=== PATIENT | female | born 1950 | race Caucasian/White ===

== ENCOUNTER 2020-06-28 07:21 | Outpatient (REF) | payer MEDICARE, SELFPAY ==
[2020-06-28 08:01] LABS: Basophils Percent Auto 0.9 % (0-2); Eosinophils Absolute Auto 0.2 X10*3/uL (0.0-0.4); Eosinophils Percent Auto 5.7 % (0-4); Hematocrit 38.9 % (37-47); Hemoglobin 12.9 g/dl (12.0-16.0); Imm Gran Abs Auto 0.01 X10*3/uL (0.00-0.03); Imm Gran Pct Auto 0.3 % (0.0-0.4); Lymphocytes Absolute Auto 1.7 X10*3/uL (1.2-4.9); Lymphocytes Percent Auto 50.1 % (20-40); MANUAL DIFF FLAG SCAN; Mean Corpuscular HGB Conc 33.2 g/dl (31.0-35.0); Mean Corpuscular Hemoglobin 31.3 pg (27.0-33.0); Mean Corpuscular Volume 94.4 fL (80-98); Mean Platelet Volume 9.8 fL (9.4-12.3); Monocytes Absolute Auto 0.8 X10*3/uL (0.1-1.2); Monocytes Percent Auto 25.1 % (2-11); Neutrophils Absolute Auto 0.6 X10*3/uL (2.0-8.3); Neutrophils Percent Auto 17.9 % (45-73); Platelet Count 283 X10*3/uL (160-400); Red Blood Count 4.12 X10*6/uL (4.20-5.50); Red Cell Distribution Width 14.1 % (11.0-16.0); SCAN SMEAR FLAG 1; White Blood Count 3.4 X10*3/uL (4.8-10.8)
[2020-06-28 08:26] LABS: Alanine Aminotransferase 32 U/L (0-31); Albumin Level 3.9 g/dL (3.5-5.0); Alkaline Phosphatase 64 U/L (39-117); Anion Gap 10 (12-20); Aspartate Amino Transferase 37 U/L (5-31); Bilirubin Total 0.4 mg/dL (0.0-1.0); Blood Urea Nitrogen 9 mg/dL (9-16); C Reactive Protein 0.86 mg/dL (< or = 0.50); Calcium 9.2 mg/dL (8.4-10.2); Carbon Dioxide 30 mmol/L (22-29); Chloride 102 mmol/L (96-108); Cholesterol 222 mg/dL; Estimated Glomerular Filt Rate > 60; Glucose Fasting 93 mg/dL (60-99); HDL Cholesterol 70 mg/dL; LDL Cholesterol Calculated 133 mg/dl; Potassium 4.4 mmol/l (3.3-5.1); Sodium 138 mmol/L (135-145); Total Protein 8.1 g/dL (6.5-8.0); Triglycerides 98 mg/dL
[2020-06-28 08:32] LABS: SLIDE REVIEW VERIFIED
[2020-06-28 08:46] LABS: Vitamin D 25-OH Total 41.9 ng/mL (>30)
[2020-06-28 08:56] LABS: Erythrocyte Sedimentation Rate 45 MM/HR (0-20)
== END 2020-06-28 07:22 | disposition home or self-care (01) ==
LOC: HO.LAB 07:21
PROVIDERS: PCP Internal Medicine; Referring Provider Internal Medicine; Visit Provider Student in an Organized Health Care Education/Training Program
DX: M13.80 Other specified arthritis, unspecified site (principal); D86.9 Sarcoidosis, unspecified; Z79.52 Long term (current) use of systemic steroids; M81.0 Age-related osteoporosis without current pathological fracture
CPT/HCPCS: 36415; 80053; 80061; 82306; 85025; 85652; 86140; 96372; J0897

== ENCOUNTER → 2020-07-04 07:50 | Outpatient (BNVA) | payer MEDICARE, SELFPAY | PROVIDERS: PCP Internal Medicine; Referring Provider Internal Medicine; Visit Provider Student in an Organized Health Care Education/Training Program | DX: M06.00 Rheumatoid arthritis without rheumatoid factor, unspecified site (principal); M70.61 Trochanteric bursitis, right hip; M70.62 Trochanteric bursitis, left hip; M81.0 Age-related osteoporosis without current pathological fracture; D86.0 Sarcoidosis of lung; D70.9 Neutropenia, unspecified; Z79.52 Long term (current) use of systemic steroids; Z79.899 Other long term (current) drug therapy | CPT/HCPCS: 20610; 99214 ==

== ENCOUNTER → 2020-07-31 10:20 | Outpatient (BNV) | payer MEDICARE, SELFPAY | PROVIDERS: PCP Internal Medicine; Visit Provider Internal Medicine Medical Oncology | DX: D72.819 Decreased white blood cell count, unspecified (principal); D47.2 Monoclonal gammopathy | CPT/HCPCS: 99213; 99214 ==

== ENCOUNTER 2020-09-27 07:16 | Outpatient (REF) | payer MEDICARE, SELFPAY ==
[2020-09-27 07:59] LABS: MANUAL DIFF FLAG NO
[2020-09-27 08:02] LABS: Basophils Percent Auto 0.8 % (0-2); Eosinophils Absolute Auto 0.1 X10*3/uL (0.0-0.4); Eosinophils Percent Auto 3.5 % (0-4); Hematocrit 39.2 % (37-47); Hemoglobin 12.9 g/dl (12.0-16.0); Imm Gran Abs Auto 0.01 X10*3/uL (0.00-0.03); Imm Gran Pct Auto 0.3 % (0.0-0.4); Lymphocytes Absolute Auto 1.3 X10*3/uL (1.2-4.9); Lymphocytes Percent Auto 35.3 % (20-40); Mean Corpuscular HGB Conc 32.9 g/dl (31.0-35.0); Mean Corpuscular Hemoglobin 30.9 pg (27.0-33.0); Mean Corpuscular Volume 93.8 fL (80-98); Mean Platelet Volume 10.1 fL (9.4-12.3); Monocytes Absolute Auto 0.7 X10*3/uL (0.1-1.2); Monocytes Percent Auto 18.3 % (2-11); Neutrophils Absolute Auto 1.6 X10*3/uL (2.0-8.3); Neutrophils Percent Auto 41.8 % (45-73); Platelet Count 284 X10*3/uL (160-400); Red Blood Count 4.18 X10*6/uL (4.20-5.50); White Blood Count 3.7 X10*3/uL (4.8-10.8)
[2020-09-27 08:31] LABS: Alanine Aminotransferase 24 U/L (0-31); Albumin Level 3.9 g/dL (3.5-5.0); Alkaline Phosphatase 70 U/L (39-117); Anion Gap 14 (12-20); Aspartate Amino Transferase 33 U/L (5-31); Bilirubin Total 0.4 mg/dL (0.0-1.0); Blood Urea Nitrogen 11 mg/dL (9-16); C Reactive Protein 1.03 mg/dL (< or = 0.50); Calcium 9.1 mg/dL (8.4-10.2); Carbon Dioxide 27 mmol/L (22-29); Chloride 99 mmol/L (96-108); Cholesterol 236 mg/dL; Estimated Glomerular Filt Rate > 60; Glucose Random 97 mg/dL (60-115); HDL Cholesterol 74 mg/dL; LDL Cholesterol Calculated 145 mg/dl; Potassium 4.2 mmol/l (3.3-5.1); Sodium 136 mmol/L (135-145); Total Protein 8.3 g/dL (6.5-8.0); Triglycerides 87 mg/dL
[2020-09-27 09:17] LABS: Erythrocyte Sedimentation Rate 64 MM/HR (0-20)
== END 2020-09-27 07:17 | disposition home or self-care (01) ==
LOC: HO.LAB 07:16
PROVIDERS: PCP Internal Medicine; Visit Provider Student in an Organized Health Care Education/Training Program
DX: M06.00 Rheumatoid arthritis without rheumatoid factor, unspecified site (principal); I10 Essential (primary) hypertension
CPT/HCPCS: 36415; 80053; 80061; 85025; 85652; 86140

== ENCOUNTER → 2020-10-05 08:09 | Outpatient (BNVA) | payer MEDICARE, SELFPAY | PROVIDERS: PCP Internal Medicine; Visit Provider Student in an Organized Health Care Education/Training Program | DX: M06.00 Rheumatoid arthritis without rheumatoid factor, unspecified site (principal); D86.9 Sarcoidosis, unspecified; D70.9 Neutropenia, unspecified; M81.0 Age-related osteoporosis without current pathological fracture; Z79.52 Long term (current) use of systemic steroids; Z79.899 Other long term (current) drug therapy | CPT/HCPCS: Q3014 ==

== ENCOUNTER 2020-10-10 08:00 | Outpatient (REF) | payer MEDICARE, SELFPAY ==
--- NOTE | 2020-10-10 08:04 | MM_ITS ---
EXAMINATION: BONE DENSITOMETRY CLINICAL INDICATION: Age-related osteoporosis without current pathological fracture. COMPARISON: Previous BD dated 08/26/2018 and baseline BD dated 03/21/2008. TECHNIQUE: Using a [employer] DXA System (software version: 13.1) manufactured by [employer], dual-energy x-ray absorptiometry was performed of the lumbar spine and left hip. The images are of good technical quality. Summary results are attached. FINDINGS: AP SPINE L1-L2 (excluding L3 and L4): The data of L1-L4 has been changed to exclude the L3 and L4 vertebral bodies, because degenerative sclerosis at these levels may cause overestimation of lumbar spine density. Current: BMD 1.258 g/cm2, Z-score 1.8, T-score 0.8, normal, 7.8% increase from previous, 5.2% decrease from baseline (<5% change is not significant). Prior: BMD 1.167 g/cm2. Baseline: BMD 1.327 g/cm2. LEFT FEMUR, NECK: Current: BMD 0.867 g/cm2, Z-score 0.0, T-score -1.2, osteopenia. Prior: BMD 0.817 g/cm2. Baseline: BMD 0.935 g/cm2. LEFT FEMUR, TOTAL: Current: BMD 0.895 g/cm2, Z-score 0.1, T-score -0.9, normal, 4.8% increase from previous, 11.1% decrease from baseline (<5% change is not significant). Prior: BMD 0.854 g/cm2. Baseline: BMD 1.007 g/cm2. IDENTIFIED RISK FACTORS: History of adult fracture. Rheumatoid arthritis. Height loss. Secondary osteoporosis (early menopause). Chronic glucocorticoids. HISTORY OF FRACTURE: Other. MEDICATIONS: Calcium supplement and/or multivitamin. Vitamin D. Prolia. MM/XR DEXA axial skeleton IMPRESSION: 1. DIAGNOSIS: Osteopenia based on the lowest T-score value of -1.2 in the femoral neck applying World Health Organization criteria. 2. 10-YEAR FRACTURE RISK PREDICTION, FRAX: Major osteoporotic fracture (clinical spine, forearm, hip or shoulder) 27.7%. Hip fracture 4.2%. 3. Treatment Recommendations: NOF guidelines recommend consideration for treatment in postmenopausal women and men age 50 and older presenting with the following: -A hip or vertebral (clinical or morphometric) fracture. -T-score less than or equal to -2.5 at the femoral neck or spine after appropriate evaluation to exclude secondary causes. -Low bone mass at the hip or spine and a 10-year fracture probability by FRAX of greater than or equal to 3% for hip fracture or greater than or equal to 20% for major osteoporotic fracture based on the [place] adapted WHO algorithm. 4. Other Recommendations: All treatment decisions require clinical judgment and consideration of individual patient factors, including patient preferences, comorbidities, previous drug use, risk factors not captured in the FRAX model (e.g. frailty, falls, vitamin D deficiency, increased bone turnover, interval significant decline in bone density) and possible under or overestimation of fracture risk by FRAX. Additional medical evaluation for secondary cause of low bone mineral density may be appropriate. FUTURE SCAN RECOMMENDATION: People with diagnosed cases of osteoporosis or at high risk for fracture should have regular bone mineral density tests. For patients eligible for Medicare, routine testing is allowed once every 2 years. The testing frequency can be increased to one year for patients who have rapidly progressing disease, those who are receiving or discontinuing medical therapy to restore bone mass, or have additional risk factors.
== END 2020-10-10 08:01 | disposition home or self-care (01) ==
LOC: HO.MAMMO 08:00
PROVIDERS: PCP Internal Medicine; Visit Provider Student in an Organized Health Care Education/Training Program
DX: M81.0 Age-related osteoporosis without current pathological fracture (principal); M70.62 Trochanteric bursitis, left hip; Z79.899 Other long term (current) drug therapy; Z87.891 Personal history of nicotine dependence; M70.61 Trochanteric bursitis, right hip
CPT/HCPCS: 20610; 77080; 99211

== ENCOUNTER 2020-11-07 10:06 | Outpatient (REF) | payer MEDICARE, SELFPAY ==
[2020-11-07 10:52] LABS: MANUAL DIFF FLAG NO
[2020-11-07 10:59] LABS: Basophils Percent Auto 0.8 % (0-2); Eosinophils Absolute Auto 0.1 X10*3/uL (0.0-0.4); Eosinophils Percent Auto 2.5 % (0-4); Hematocrit 39.6 % (37-47); Hemoglobin 13.3 g/dl (12.0-16.0); Imm Gran Abs Auto 0.01 X10*3/uL (0.00-0.03); Imm Gran Pct Auto 0.3 % (0.0-0.4); Lymphocytes Absolute Auto 1.1 X10*3/uL (1.2-4.9); Lymphocytes Percent Auto 32.2 % (20-40); Mean Corpuscular HGB Conc 33.6 g/dl (31.0-35.0); Mean Corpuscular Hemoglobin 31.2 pg (27.0-33.0); Monocytes Absolute Auto 0.5 X10*3/uL (0.1-1.2); Monocytes Percent Auto 14.4 % (2-11); Neutrophils Absolute Auto 1.8 X10*3/uL (2.0-8.3); Neutrophils Percent Auto 49.8 % (45-73); Platelet Count 237 X10*3/uL (160-400); Red Blood Count 4.26 X10*6/uL (4.20-5.50); Red Cell Distribution Width 14.3 % (11.0-16.0); White Blood Count 3.5 X10*3/uL (4.8-10.8)
[2020-11-07 11:04] LABS: Prothrombin Time 11.3 SEC (10.8-13.0)
[2020-11-07 11:32] LABS: Anion Gap 12 (12-20); Blood Urea Nitrogen 14 mg/dL (9-16); Calcium 9.1 mg/dL (8.4-10.2); Carbon Dioxide 28 mmol/L (22-29); Chloride 98 mmol/L (96-108); Estimated Glomerular Filt Rate > 60; Glucose Random 101 mg/dL (60-115); Potassium 3.8 mmol/L (3.3-5.1); Sodium 134 mmol/L (135-145)
== END 2020-11-07 10:07 | disposition home or self-care (01) ==
LOC: HO.WFDLDS 10:06
PROVIDERS: PCP Internal Medicine; Visit Provider Internal Medicine Cardiovascular Disease
DX: I73.9 Peripheral vascular disease, unspecified (principal); I65.23 Occlusion and stenosis of bilateral carotid arteries
CPT/HCPCS: 36415; 80048; 85025; 85610

== ENCOUNTER 2021-01-01 07:28 | Outpatient (REF) | payer MEDICARE, SELFPAY ==
[2021-01-01 08:11] LABS: Basophils Percent Auto 1.6 % (0-2); Eosinophils Absolute Auto 0.2 X10*3/uL (0.0-0.4); Eosinophils Percent Auto 5.9 % (0-4); Hematocrit 37.3 % (37-47); Hemoglobin 12.2 g/dl (12.0-16.0); Imm Gran Abs Auto 0.01 X10*3/uL (0.00-0.03); Imm Gran Pct Auto 0.4 % (0.0-0.4); Lymphocytes Absolute Auto 1.3 X10*3/uL (1.2-4.9); Lymphocytes Percent Auto 48.8 % (20-40); MANUAL DIFF FLAG SCAN; Mean Corpuscular HGB Conc 32.7 g/dl (31.0-35.0); Mean Corpuscular Hemoglobin 30.5 pg (27.0-33.0); Mean Corpuscular Volume 93.3 fL (80-98); Mean Platelet Volume 9.9 fL (9.4-12.3); Monocytes Absolute Auto 0.6 X10*3/uL (0.1-1.2); Monocytes Percent Auto 22.7 % (2-11); Neutrophils Absolute Auto 0.5 X10*3/uL (2.0-8.3); Neutrophils Percent Auto 20.6 % (45-73); Platelet Count 280 X10*3/uL (160-400); Red Cell Distribution Width 14.6 % (11.0-16.0); SCAN SMEAR FLAG 1; White Blood Count 2.6 X10*3/uL (4.8-10.8)
[2021-01-01 08:55] LABS: Alanine Aminotransferase 21 U/L (0-31); Albumin Level 3.7 g/dL (3.5-5.0); Alkaline Phosphatase 71 U/L (39-117); Anion Gap 12 (12-20); Aspartate Amino Transferase 34 U/L (5-31); Bilirubin Total 0.4 mg/dL (0.0-1.0); Blood Urea Nitrogen 13 mg/dL (9-16); C Reactive Protein 0.53 mg/dL (< or = 0.50); Calcium 8.9 mg/dL (8.4-10.2); Carbon Dioxide 24 mmol/L (22-29); Chloride 105 mmol/L (96-108); Estimated Glomerular Filt Rate > 60; Glucose Random 90 mg/dL (60-115); Potassium 4.1 mmol/L (3.3-5.1); Sodium 137 mmol/L (135-145); Total Protein 7.7 g/dL (6.5-8.0)
[2021-01-01 09:20] LABS: Erythrocyte Sedimentation Rate 45 MM/HR (0-20)
[2021-01-01 09:28] LABS: SLIDE REVIEW VERIFIED
== END 2021-01-01 07:29 | disposition home or self-care (01) ==
LOC: HO.LAB 07:28
PROVIDERS: PCP Internal Medicine; Visit Provider Student in an Organized Health Care Education/Training Program
DX: M81.0 Age-related osteoporosis without current pathological fracture (principal); M06.00 Rheumatoid arthritis without rheumatoid factor, unspecified site
CPT/HCPCS: 36415; 80053; 85025; 85652; 86140; 96402; J0897

== ENCOUNTER 2021-01-15 07:30 | Outpatient (REF) | payer MEDICARE, SELFPAY ==
--- NOTE | ~2021-01-15 | XR_ITS ---
EXAMINATION: 1. RADIOGRAPHS RIGHT HIP 2. RADIOGRAPHS LEFT HIP CLINICAL INFORMATION: TROCHANTERIC BURSITIS COMPARISON: Left hip x-rays April 18, 2019 TECHNIQUE: 2 views of each hip were obtained FINDINGS: Right hip: Visualized portion of the proximal right femur demonstrate no fracture. Right femoral head is well-seated within the acetabulum. There is mild narrowing of the right femoral acetabular joint.. Partially visualized stent of the right lower extremity. Left hip: Visualized portion of the proximal left femur demonstrate no fracture. Left femoral head is well-seated within the acetabulum. Left femoral acetabular joint space is well-maintained. Partially visualized vascular stents of the left lower extremity. XR/XR hip RT min 2V IMPRESSION: 1. Mild degenerative changes of the right hip 2. Unremarkable radiographs of the left hip.
--- NOTE | ~2021-01-15 | XR_ITS ---
EXAMINATION: 1. RADIOGRAPHS RIGHT HIP 2. RADIOGRAPHS LEFT HIP CLINICAL INFORMATION: TROCHANTERIC BURSITIS COMPARISON: Left hip x-rays April 18, 2019 TECHNIQUE: 2 views of each hip were obtained FINDINGS: Right hip: Visualized portion of the proximal right femur demonstrate no fracture. Right femoral head is well-seated within the acetabulum. There is mild narrowing of the right femoral acetabular joint.. Partially visualized stent of the right lower extremity. Left hip: Visualized portion of the proximal left femur demonstrate no fracture. Left femoral head is well-seated within the acetabulum. Left femoral acetabular joint space is well-maintained. Partially visualized vascular stents of the left lower extremity. XR/XR hip LT min 2V IMPRESSION: 1. Mild degenerative changes of the right hip 2. Unremarkable radiographs of the left hip.
[2021-01-15 09:08] LABS: Alanine Aminotransferase 36 U/L (0-31); Albumin Level 3.9 g/dL (3.5-5.0); Alkaline Phosphatase 71 U/L (39-117); Anion Gap 11 (12-20); Aspartate Amino Transferase 45 U/L (5-31); Bilirubin Total 0.4 mg/dL (0.0-1.0); Blood Urea Nitrogen 10 mg/dL (9-16); Calcium 9.3 mg/dL (8.4-10.2); Carbon Dioxide 30 mmol/L (22-29); Chloride 102 mmol/L (96-108); Cholesterol 216 mg/dL; Estimated Glomerular Filt Rate > 60; Glucose Fasting 89 mg/dL (60-99); HDL Cholesterol 66 mg/dL; LDL Cholesterol Calculated 128 mg/dl; Potassium 4.3 mmol/L (3.3-5.1); Sodium 139 mmol/L (135-145); Triglycerides 110 mg/dL
== END 2021-01-15 07:31 | disposition home or self-care (01) ==
LOC: HO.LAB 07:30
PROVIDERS: PCP Internal Medicine; Visit Provider Internal Medicine
DX: M70.62 Trochanteric bursitis, left hip (principal); M70.61 Trochanteric bursitis, right hip; I10 Essential (primary) hypertension; E78.5 Hyperlipidemia, unspecified; M06.00 Rheumatoid arthritis without rheumatoid factor, unspecified site; D86.9 Sarcoidosis, unspecified; M81.0 Age-related osteoporosis without current pathological fracture; D70.9 Neutropenia, unspecified; Z79.899 Other long term (current) drug therapy; Z87.891 Personal history of nicotine dependence; Z79.52 Long term (current) use of systemic steroids
CPT/HCPCS: 20610; 36415; 73502; 80053; 80061; 99212

== ENCOUNTER 2021-04-02 11:25 | Outpatient (REF) | payer MEDICARE, SELFPAY ==
[2021-04-02 13:27] LABS: MANUAL DIFF FLAG NO
[2021-04-02 13:29] LABS: Basophils Percent Auto 0.8 % (0-2); Eosinophils Absolute Auto 0.1 X10*3/uL (0.0-0.4); Eosinophils Percent Auto 2.1 % (0-4); Hemoglobin 13.6 g/dl (12.0-16.0); Imm Gran Abs Auto 0.01 X10*3/uL (0.00-0.03); Imm Gran Pct Auto 0.3 % (0.0-0.4); Lymphocytes Absolute Auto 1.1 X10*3/uL (1.2-4.9); Lymphocytes Percent Auto 28.6 % (20-40); Mean Corpuscular HGB Conc 33.2 g/dl (31.0-35.0); Mean Corpuscular Hemoglobin 30.4 pg (27.0-33.0); Mean Corpuscular Volume 91.7 fL (80-98); Mean Platelet Volume 10.3 fL (9.4-12.3); Monocytes Absolute Auto 0.6 X10*3/uL (0.1-1.2); Monocytes Percent Auto 15.6 % (2-11); Neutrophils Percent Auto 52.6 % (45-73); Platelet Count 270 X10*3/uL (160-400); Red Blood Count 4.47 X10*6/uL (4.20-5.50); Red Cell Distribution Width 14.4 % (11.0-16.0); White Blood Count 3.9 X10*3/uL (4.8-10.8)
[2021-04-02 14:03] LABS: Alanine Aminotransferase 27 U/L (0-31); Alkaline Phosphatase 63 U/L (39-117); Anion Gap 14 (12-20); Aspartate Amino Transferase 37 U/L (5-31); Bilirubin Total 0.5 mg/dL (0.0-1.0); Blood Urea Nitrogen 16 mg/dL (9-16); Calcium 9.8 mg/dL (8.4-10.2); Carbon Dioxide 25 mmol/L (22-29); Chloride 101 mmol/L (96-108); Estimated Glomerular Filt Rate > 60; Glucose Random 99 mg/dL (60-115); Potassium 4.3 mmol/L (3.3-5.1); Sodium 136 mmol/L (135-145); Total Protein 8.7 g/dL (6.5-8.0)
[2021-04-02 14:21] LABS: Erythrocyte Sedimentation Rate 44 MM/HR (0-20)
== END 2021-04-02 11:26 | disposition home or self-care (01) ==
LOC: HO.WFDLDS 11:25
PROVIDERS: Visit Provider Student in an Organized Health Care Education/Training Program
DX: M06.00 Rheumatoid arthritis without rheumatoid factor, unspecified site (principal)
CPT/HCPCS: 36415; 80053; 85025; 85652; 86140

== ENCOUNTER → 2021-04-18 07:54 | Outpatient (BNVA) | payer MEDICARE, SELFPAY | PROVIDERS: PCP Internal Medicine; Visit Provider Student in an Organized Health Care Education/Training Program | DX: M70.61 Trochanteric bursitis, right hip (principal); M70.62 Trochanteric bursitis, left hip; M06.00 Rheumatoid arthritis without rheumatoid factor, unspecified site; D86.9 Sarcoidosis, unspecified; M81.0 Age-related osteoporosis without current pathological fracture; D70.9 Neutropenia, unspecified; Z79.52 Long term (current) use of systemic steroids; Z79.899 Other long term (current) drug therapy | CPT/HCPCS: 20610; 99212 ==

== ENCOUNTER 2021-04-23 07:27 | Outpatient (REF) | payer MEDICARE, SELFPAY ==
--- NOTE | ~2021-04-23 | CT_ITS ---
EXAMINATION: CT CHEST WITHOUT CONTRAST CLINICAL INFORMATION: Pulmonary nodules. COMPARISON: CT chest 05/16/2020. TECHNIQUE: Multidetector volumetric CT imaging of the chest was done. Axial MIP volume rendering provided. Sagittal and coronal reformatted images were obtained. This CT examination was performed using dose optimization techniques as appropriate, variously including the following: *Automated exposure control *Adjustment of mA and/or kV according to patient size (this includes techniques or standardized protocols for targeted exams where dose is matched to indication/reason for exam; i.e. extremities or head) *Use of iterative reconstruction technique DLP: 175 mGy-cm. FINDINGS: WORKING SECOND HAND: Unremarkable. LUNGS: There is diffuse centrilobular emphysema. There is a 4 mm ground-glass nodule right upper lobe adjacent to major fissure axial image 135/6, a 5 mm ground-glass nodule right upper lobe axial image 172/6, a 2 mm nodule right upper lobe adjacent to major fissure and more medial axial image 191/6, a 2 mm nodule left upper lobe axial image 228/6. No additional nodules seen. There is scarring or atelectasis in the lingula. MEDIASTINUM: The thyroid lobes are symmetrical and normal. Central trachea and the bronchi are widely patent. Heart size and the great vessels are normal caliber. The ascending aorta measures 4.0 x 3.7 cm. There are no abnormal-sized mediastinal or hilar lymph nodes. There are coronary artery calcifications present. No pericardial effusion seen. PLEURA: There is no pleural effusion. No pleural mass or thickening. AXILLA: Unremarkable. UPPER ABDOMEN: Visualized liver, spleen and pancreas are unremarkable. OSSEOUS STRUCTURES: There is mild ventral spondylosis dorsal spine. No lytic or sclerotic process seen. CT/CT chest wo con IMPRESSION: Centrilobular emphysema with multiple pulmonary nodules essentially stable. No change in the atelectatic changes in the lingula.
== END 2021-04-23 07:28 | disposition home or self-care (01) ==
LOC: HO.CT 07:27
PROVIDERS: PCP Internal Medicine; Visit Provider Hospitalist
DX: R91.8 Other nonspecific abnormal finding of lung field (principal)
CPT/HCPCS: 71250

== ENCOUNTER 2021-05-01 08:37 | Outpatient (REF) | payer MEDICARE, SELFPAY ==
--- NOTE | ~2021-05-01 | MM_ITS ---
EXAMINATION: MM SCREENING DIGITAL BREAST TOMOSYNTHESIS, BILATERAL CLINICAL INFORMATION: Screening. Asymptomatic. The lifetime risk of breast cancer based on the Tyrer-Cuzick Model is 3.4%. COMPARISON: Mammography: April 26, 2020 and studies dating back to October 03, 2014 TECHNIQUE: Digital breast tomosynthesis is performed in both the craniocaudal and mediolateral oblique views along with computer-aided detection (CAD). Synthesized 2D images are generated from the tomosynthesis. FINDINGS: There are scattered areas of fibroglandular density (ACR BI-RADS breast composition Category b). There are no significant masses, abnormal calcifications, or other abnormalities. MM/MM tomosynthesis screening BI IMPRESSION: There are no significant changes from prior study. ASSESSMENT: BI-RADS 1: Negative RECOMMENDATION: Routine annual mammography screening. This patient's information was entered into a reminder system with a target due date for their next mammogram.
== END 2021-05-01 08:38 | disposition home or self-care (01) ==
LOC: HO.MAMMO 08:37
PROVIDERS: PCP Internal Medicine; Visit Provider Internal Medicine
DX: Z12.31 Encounter for screening mammogram for malignant neoplasm of breast (principal)
CPT/HCPCS: 77063; 77067

== ENCOUNTER → 2021-05-23 08:48 | Outpatient (BNVA) | payer MEDICARE, SELFPAY | PROVIDERS: Visit Provider Orthopaedic Surgery | DX: M70.70 Other bursitis of hip, unspecified hip (principal); M25.551 Pain in right hip; M25.552 Pain in left hip; M06.00 Rheumatoid arthritis without rheumatoid factor, unspecified site; D86.9 Sarcoidosis, unspecified; Z79.899 Other long term (current) drug therapy; Z79.52 Long term (current) use of systemic steroids | CPT/HCPCS: 99202 ==

== ENCOUNTER → 2021-06-14 08:54 | Outpatient (BNVA) | payer MEDICARE, SELFPAY | PROVIDERS: PCP Internal Medicine; Visit Provider Hospitalist | DX: D86.9 Sarcoidosis, unspecified (principal); J43.2 Centrilobular emphysema; M06.00 Rheumatoid arthritis without rheumatoid factor, unspecified site; Z79.899 Other long term (current) drug therapy; Z79.52 Long term (current) use of systemic steroids | CPT/HCPCS: 99212 ==

== ENCOUNTER 2021-07-09 12:17 | Outpatient (REF) | payer MEDICARE, SELFPAY ==
[2021-07-09 13:55] LABS: MANUAL DIFF FLAG NO
[2021-07-09 13:58] LABS: Basophils Percent Auto 0.8 % (0-2); Eosinophils Absolute Auto 0.1 X10*3/uL (0.0-0.4); Eosinophils Percent Auto 3.3 % (0-4); Hematocrit 38.9 % (37-47); Imm Gran Abs Auto 0.01 X10*3/uL (0.00-0.03); Imm Gran Pct Auto 0.3 % (0.0-0.4); Lymphocytes Absolute Auto 1.6 X10*3/uL (1.2-4.9); Mean Corpuscular HGB Conc 33.4 g/dl (31.0-35.0); Mean Corpuscular Hemoglobin 31.1 pg (27.0-33.0); Mean Corpuscular Volume 93.1 fL (80-98); Mean Platelet Volume 10.4 fL (9.4-12.3); Monocytes Absolute Auto 0.7 X10*3/uL (0.1-1.2); Monocytes Percent Auto 18.6 % (2-11); Neutrophils Absolute Auto 1.2 X10*3/uL (2.0-8.3); Platelet Count 278 X10*3/uL (160-400); Red Blood Count 4.18 X10*6/uL (4.20-5.50); Red Cell Distribution Width 14.8 % (11.0-16.0); White Blood Count 3.7 X10*3/uL (4.8-10.8)
[2021-07-09 14:28] LABS: Alanine Aminotransferase 23 U/L (0-31); Albumin Level 3.9 g/dL (3.5-5.0); Alkaline Phosphatase 60 U/L (39-117); Anion Gap 13 (12-20); Aspartate Amino Transferase 37 U/L (5-31); Bilirubin Total 0.6 mg/dL (0.0-1.0); Blood Urea Nitrogen 11 mg/dL (9-16); C Reactive Protein 1.69 mg/dL (< or = 0.50); Calcium 9.4 mg/dL (8.4-10.2); Carbon Dioxide 25 mmol/L (22-29); Chloride 102 mmol/L (96-108); Estimated Glomerular Filt Rate > 60; Glucose Random 107 mg/dL (60-115); Sodium 136 mmol/L (135-145); Total Protein 8.1 g/dL (6.5-8.0)
[2021-07-09 15:03] LABS: Erythrocyte Sedimentation Rate 51 MM/HR (0-20)
== END 2021-07-09 12:18 | disposition home or self-care (01) ==
LOC: HO.WFDLDS 12:17
PROVIDERS: Visit Provider Nurse Practitioner Family
DX: M06.00 Rheumatoid arthritis without rheumatoid factor, unspecified site (principal)
CPT/HCPCS: 36415; 80053; 85025; 85652; 86140

== ENCOUNTER → 2021-07-12 07:58 | Outpatient (BNVA) | payer MEDICARE, SELFPAY | PROVIDERS: PCP Internal Medicine; Visit Provider Nurse Practitioner Family | DX: M06.00 Rheumatoid arthritis without rheumatoid factor, unspecified site (principal); D86.9 Sarcoidosis, unspecified; M81.0 Age-related osteoporosis without current pathological fracture; M70.61 Trochanteric bursitis, right hip; M76.20 Iliac crest spur, unspecified hip; Z79.52 Long term (current) use of systemic steroids; Z79.899 Other long term (current) drug therapy | CPT/HCPCS: 96372; 99212; J0897 ==

== ENCOUNTER → 2021-07-22 08:10 | Outpatient (BNVA) | payer MEDICARE, SELFPAY | PROVIDERS: PCP Internal Medicine; Visit Provider Orthopaedic Surgery | DX: M70.62 Trochanteric bursitis, left hip (principal); M70.61 Trochanteric bursitis, right hip; D86.9 Sarcoidosis, unspecified; Z79.899 Other long term (current) drug therapy; Z79.52 Long term (current) use of systemic steroids | CPT/HCPCS: 20610; 99212; J1100 ==

== ENCOUNTER 2021-09-04 10:29 | Outpatient (REF) | payer MEDICARE, SELFPAY ==
[2021-09-04 13:48] LABS: Basophils Percent Auto 1.8 % (0-2); Eosinophils Absolute Auto 0.1 X10*3/uL (0.0-0.4); Eosinophils Percent Auto 3.1 % (0-4); Hematocrit 42.3 % (37.0-47.0); Hemoglobin 14.1 g/dl (12.0-16.0); Lymphocytes Absolute Auto 0.7 X10*3/uL (1.2-4.9); Lymphocytes Percent Auto 41.7 % (20-40); MANUAL DIFF FLAG SCAN; Mean Corpuscular HGB Conc 33.3 g/dl (31.0-35.0); Mean Corpuscular Hemoglobin 30.9 pg (27.0-33.0); Mean Corpuscular Volume 92.8 fL (80.0-98.0); Mean Platelet Volume 10.8 fL (9.4-12.3); Monocytes Absolute Auto 0.5 X10*3/uL (0.1-1.2); Monocytes Percent Auto 30.7 % (2-11); Neutrophils Absolute Auto 0.4 x10*3/uL (2.0-8.3); Neutrophils Percent Auto 22.7 % (45-73); Platelet Count 225 X10*3/uL (160-400); Red Blood Count 4.56 X10*6/uL (4.20-5.50); Red Cell Distribution Width 14.2 % (11.0-16.0); SCAN SMEAR FLAG 1; White Blood Count 1.6 X10*3/uL (4.8-10.8)
[2021-09-04 14:07] LABS: Alanine Aminotransferase 29 U/L (0-31); Alkaline Phosphatase 53 U/L (39-117); Anion Gap 15 (12-20); Aspartate Amino Transferase 43 U/L (5-31); Bilirubin Total 0.4 mg/dL (0.0-1.0); Blood Urea Nitrogen 8 mg/dL (9-16); C Reactive Protein 0.08 mg/dL (< or = 0.50); Calcium 9.3 mg/dL (8.4-10.2); Carbon Dioxide 23 mmol/L (22-29); Chloride 102 mmol/L (96-108); Estimated Glomerular Filt Rate > 60; Glucose Random 94 mg/dL (60-115); Sodium 136 mmol/L (135-145); Total Protein 8.3 g/dL (6.5-8.0)
[2021-09-04 14:08] LABS: SLIDE REVIEW VERIFIED
[2021-09-04 14:27] LABS: Vitamin D 25-OH Total 35.9 ng/mL (>30)
[2021-09-04 15:16] LABS: Erythrocyte Sedimentation Rate 11 MM/HR (0-20)
[2021-09-05 08:54] LABS: HBc Num1 0.11 S/CO (0.00-0.79); HBsAGNum1 0.28 S/CO (0.00-0.99); Hepatitis B Core Antibody Nonreactive (Nonreactive); Hepatitis B Surface Antigen Negative (Negative); ~HepC Num1 0.13 S/CO (0.00-0.79); ~Hepatitis B Surface Antibody NONREACTIVE (Nonreactive); ~Hepatitis C Antibody Nonreactive (Nonreactive)
[2021-09-06 07:40] LABS: Hepatitis A Antibody IgM 0.14 Index (0-0.79); ~Hepatitis A Antibody IgM Nonreactive (Nonreactive)
[2021-09-06 20:36] LABS: TS Negative Control Passed; TS Panel A 0; TS Panel B 0; TS Positive Control Passed; TSpotTB Negative (Negative)
== END 2021-09-04 10:30 | disposition home or self-care (01) ==
LOC: HO.WFDLDS 10:29
PROVIDERS: Visit Provider Nurse Practitioner Family
DX: M06.00 Rheumatoid arthritis without rheumatoid factor, unspecified site (principal)
CPT/HCPCS: 36415; 80053; 82306; 85025; 85652; 86140; 86481; 86704; 86706; 86709; 86803; 87340

== ENCOUNTER 2021-09-12 08:07 | Outpatient (REF) | payer MEDICARE, SELFPAY ==
[2021-09-12 11:28] LABS: MANUAL DIFF FLAG NO
[2021-09-12 11:48] LABS: Basophils Percent Auto 1.3 % (0-2); Eosinophils Absolute Auto 0.1 X10*3/uL (0.0-0.4); Eosinophils Percent Auto 4.3 % (0-4); Hematocrit 41.5 % (37.0-47.0); Hemoglobin 13.8 g/dl (12.0-16.0); Lymphocytes Absolute Auto 1.3 X10*3/uL (1.2-4.9); Mean Corpuscular HGB Conc 33.3 g/dl (31.0-35.0); Mean Corpuscular Hemoglobin 30.9 pg (27.0-33.0); Mean Corpuscular Volume 92.8 fL (80.0-98.0); Mean Platelet Volume 10.8 fL (9.4-12.3); Monocytes Absolute Auto 0.4 X10*3/uL (0.1-1.2); Monocytes Percent Auto 12.3 % (2-11); Neutrophils Absolute Auto 1.1 x10*3/uL (2.0-8.3); Neutrophils Percent Auto 38.1 % (45-73); Platelet Count 222 X10*3/uL (160-400); Red Blood Count 4.47 X10*6/uL (4.20-5.50); Red Cell Distribution Width 13.9 % (11.0-16.0)
[2021-09-12 12:12] LABS: Alanine Aminotransferase 39 U/L (0-31); Alkaline Phosphatase 60 U/L (39-117); Anion Gap 11 (12-20); Aspartate Amino Transferase 45 U/L (5-31); Bilirubin Total 0.6 mg/dL (0.0-1.0); Blood Urea Nitrogen 13 mg/dL (9-16); C Reactive Protein 0.07 mg/dL (< or = 0.50); Calcium 9.6 mg/dL (8.4-10.2); Carbon Dioxide 25 mmol/L (22-29); Chloride 103 mmol/L (96-108); Estimated Glomerular Filt Rate > 60; Glucose Random 97 mg/dL (60-115); Potassium 4.1 mmol/L (3.3-5.1); Sodium 135 mmol/L (135-145); Total Protein 7.9 g/dL (6.5-8.0)
[2021-09-12 12:43] LABS: Erythrocyte Sedimentation Rate 9 MM/HR (0-20)
== END 2021-09-12 08:08 | disposition home or self-care (01) ==
LOC: HO.WFDLDS 08:07
PROVIDERS: Visit Provider Nurse Practitioner Family
DX: M06.00 Rheumatoid arthritis without rheumatoid factor, unspecified site (principal)
CPT/HCPCS: 36415; 80053; 85025; 85652; 86140

== ENCOUNTER 2021-09-24 11:39 | Outpatient (REF) | payer MEDICARE, SELFPAY ==
[2021-09-24 11:49] LABS: MANUAL DIFF FLAG NO
[2021-09-24 12:14] LABS: Basophils Percent Auto 1.3 % (0-2); Eosinophils Absolute Auto 0.1 X10*3/uL (0.0-0.4); Eosinophils Percent Auto 3.2 % (0-4); Hematocrit 44.1 % (37.0-47.0); Hemoglobin 14.6 g/dl (12.0-16.0); Lymphocytes Absolute Auto 1.2 X10*3/uL (1.2-4.9); Lymphocytes Percent Auto 38.5 % (20-40); Mean Corpuscular HGB Conc 33.1 g/dl (31.0-35.0); Mean Corpuscular Hemoglobin 31.2 pg (27.0-33.0); Mean Corpuscular Volume 94.2 fL (80.0-98.0); Mean Platelet Volume 10.3 fL (9.4-12.3); Monocytes Absolute Auto 0.5 X10*3/uL (0.1-1.2); Monocytes Percent Auto 16.1 % (2-11); Neutrophils Absolute Auto 1.3 x10*3/uL (2.0-8.3); Neutrophils Percent Auto 40.9 % (45-73); Platelet Count 240 X10*3/uL (160-400); Red Blood Count 4.68 X10*6/uL (4.20-5.50); Red Cell Distribution Width 14.3 % (11.0-16.0); White Blood Count 3.2 X10*3/uL (4.8-10.8)
[2021-09-24 12:43] LABS: Alanine Aminotransferase 59 U/L (0-31); Albumin Level 4.2 g/dL (3.5-5.0); Alkaline Phosphatase 50 U/L (39-117); Anion Gap 11 (12-20); Aspartate Amino Transferase 64 U/L (5-31); Bilirubin Total 0.6 mg/dL (0.0-1.0); Blood Urea Nitrogen 12 mg/dL (9-16); C Reactive Protein 0.04 mg/dL (< or = 0.50); Carbon Dioxide 27 mmol/L (22-29); Chloride 103 mmol/L (96-108); Estimated Glomerular Filt Rate > 60; Glucose Random 103 mg/dL (60-115); Potassium 4.3 mmol/L (3.3-5.1); Sodium 137 mmol/L (135-145); Total Protein 8.4 g/dL (6.5-8.0)
[2021-09-24 13:39] LABS: Erythrocyte Sedimentation Rate 8 MM/HR (0-20)
== END 2021-09-24 11:40 | disposition home or self-care (01) ==
LOC: HO.LAB 11:39
PROVIDERS: PCP Internal Medicine; Visit Provider Nurse Practitioner Family
DX: M06.00 Rheumatoid arthritis without rheumatoid factor, unspecified site (principal); D86.9 Sarcoidosis, unspecified; M81.0 Age-related osteoporosis without current pathological fracture; D70.9 Neutropenia, unspecified; M70.61 Trochanteric bursitis, right hip; M70.62 Trochanteric bursitis, left hip; Z79.52 Long term (current) use of systemic steroids; Z79.899 Other long term (current) drug therapy
CPT/HCPCS: 36415; 80053; 85025; 85652; 86140; 99212

== ENCOUNTER 2021-10-01 12:26 | Outpatient (REF) | payer MEDICARE, SELFPAY ==
[2021-10-01 14:02] LABS: Basophils Absolute Auto 0.1 X10*3/uL (0.0-0.2); Eosinophils Percent Auto 1.6 % (0-4); Hematocrit 41.8 % (37.0-47.0); Hemoglobin 14.1 g/dl (12.0-16.0); Lymphocytes Absolute Auto 1.4 X10*3/uL (1.2-4.9); Lymphocytes Percent Auto 55.1 % (20-40); MANUAL DIFF FLAG SCAN; Mean Corpuscular HGB Conc 33.7 g/dl (31.0-35.0); Mean Corpuscular Hemoglobin 31.3 pg (27.0-33.0); Mean Corpuscular Volume 92.9 fL (80.0-98.0); Mean Platelet Volume 10.8 fL (9.4-12.3); Monocytes Absolute Auto 0.3 X10*3/uL (0.1-1.2); Monocytes Percent Auto 12.6 % (2-11); Neutrophils Absolute Auto 0.7 x10*3/uL (2.0-8.3); Neutrophils Percent Auto 28.7 % (45-73); Platelet Count 231 X10*3/uL (160-400); Red Cell Distribution Width 13.9 % (11.0-16.0); SCAN SMEAR FLAG 1
[2021-10-01 14:03] LABS: White Blood Count 2.5 X10*3/uL (4.8-10.8)
[2021-10-01 14:35] LABS: SLIDE REVIEW VERIFIED
[2021-10-01 14:45] LABS: Alanine Aminotransferase 47 U/L (0-31); Albumin Level 3.9 g/dL (3.5-5.0); Alkaline Phosphatase 58 U/L (39-117); Anion Gap 12 (12-20); Aspartate Amino Transferase 51 U/L (5-31); Bilirubin Total 0.5 mg/dL (0.0-1.0); Blood Urea Nitrogen 15 mg/dL (9-16); C Reactive Protein 0.05 mg/dL (< or = 0.50); Calcium 10.1 mg/dL (8.4-10.2); Carbon Dioxide 27 mmol/L (22-29); Chloride 102 mmol/L (96-108); Cholesterol 276 mg/dL; Estimated Glomerular Filt Rate 59; Glucose Random 128 mg/dL (60-115); HDL Cholesterol 78 mg/dL; LDL Cholesterol Calculated 172 mg/dl; Potassium 4.4 mmol/L (3.3-5.1); Sodium 137 mmol/L (135-145); Triglycerides 131 mg/dL
[2021-10-01 14:56] LABS: Erythrocyte Sedimentation Rate 7 MM/HR (0-20)
[2021-10-01 15:07] LABS: Reflex LDLD? No
== END 2021-10-01 12:27 | disposition home or self-care (01) ==
LOC: HO.WFDLDS 12:26
PROVIDERS: Visit Provider Nurse Practitioner Family
DX: M06.00 Rheumatoid arthritis without rheumatoid factor, unspecified site (principal)
CPT/HCPCS: 36415; 80053; 80061; 85025; 85652; 86140

== ENCOUNTER 2021-10-10 12:37 | Outpatient (REF) | payer MEDICARE, SELFPAY ==
[2021-10-10 14:10] LABS: Basophils Percent Auto 0.7 % (0-2); Eosinophils Absolute Auto 0.1 X10*3/uL (0.0-0.4); Eosinophils Percent Auto 4.2 % (0-4); Hematocrit 41.6 % (37.0-47.0); Hemoglobin 13.8 g/dl (12.0-16.0); Imm Gran Abs Auto 0.01 X10*3/uL (0.00-0.03); Imm Gran Pct Auto 0.3 % (0.0-0.4); Lymphocytes Absolute Auto 1.5 X10*3/uL (1.2-4.9); MANUAL DIFF FLAG SCAN; Mean Corpuscular HGB Conc 33.2 g/dl (31.0-35.0); Mean Corpuscular Hemoglobin 30.7 pg (27.0-33.0); Mean Corpuscular Volume 92.7 fL (80.0-98.0); Mean Platelet Volume 10.6 fL (9.4-12.3); Monocytes Absolute Auto 0.4 X10*3/uL (0.1-1.2); Neutrophils Absolute Auto 0.8 x10*3/uL (2.0-8.3); Neutrophils Percent Auto 28.8 % (45-73); Platelet Count 230 X10*3/uL (160-400); Red Blood Count 4.49 X10*6/uL (4.20-5.50); Red Cell Distribution Width 13.9 % (11.0-16.0); SCAN SMEAR FLAG 1; White Blood Count 2.9 X10*3/uL (4.8-10.8)
[2021-10-10 14:14] LABS: Alanine Aminotransferase 45 U/L (0-31); Albumin Level 3.9 g/dL (3.5-5.0); Alkaline Phosphatase 51 U/L (39-117); Anion Gap 11 (12-20); Aspartate Amino Transferase 50 U/L (5-31); Bilirubin Total 0.6 mg/dL (0.0-1.0); Blood Urea Nitrogen 10 mg/dL (9-16); Calcium 9.4 mg/dL (8.4-10.2); Carbon Dioxide 29 mmol/L (22-29); Chloride 101 mmol/L (96-108); Estimated Glomerular Filt Rate > 60; Glucose Random 114 mg/dL (60-115); Potassium 3.9 mmol/L (3.3-5.1); Sodium 137 mmol/L (135-145)
[2021-10-10 14:46] LABS: SLIDE REVIEW VERIFIED
== END 2021-10-10 12:38 | disposition home or self-care (01) ==
LOC: HO.WFDLDS 12:37
PROVIDERS: Visit Provider Nurse Practitioner Family
DX: M06.00 Rheumatoid arthritis without rheumatoid factor, unspecified site (principal)
CPT/HCPCS: 36415; 80053; 85025

== ENCOUNTER → 2021-10-21 08:31 | Outpatient (BNVA) | payer MEDICARE, SELFPAY | PROVIDERS: PCP Internal Medicine; Visit Provider Orthopaedic Surgery | DX: M70.62 Trochanteric bursitis, left hip (principal); M70.61 Trochanteric bursitis, right hip | CPT/HCPCS: 20610; 99212; J1100 ==

== ENCOUNTER 2021-11-20 08:50 | Outpatient (REF) | payer MEDICARE, SELFPAY ==
[2021-11-20 10:33] LABS: Basophils Absolute Auto 0.1 X10*3/uL (0.0-0.2); Basophils Percent Auto 1.7 % (0-2); Eosinophils Absolute Auto 0.2 X10*3/uL (0.0-0.4); Eosinophils Percent Auto 5.2 % (0-4); Hematocrit 41.9 % (37.0-47.0); Hemoglobin 14.1 g/dl (12.0-16.0); Lymphocytes Absolute Auto 1.6 X10*3/uL (1.2-4.9); Lymphocytes Percent Auto 55.2 % (20-40); MANUAL DIFF FLAG SCAN; Mean Corpuscular HGB Conc 33.7 g/dl (31.0-35.0); Mean Corpuscular Hemoglobin 31.3 pg (27.0-33.0); Mean Corpuscular Volume 93.1 fL (80.0-98.0); Mean Platelet Volume 10.5 fL (9.4-12.3); Monocytes Absolute Auto 0.4 X10*3/uL (0.1-1.2); Monocytes Percent Auto 15.4 % (2-11); Neutrophils Absolute Auto 0.6 x10*3/uL (2.0-8.3); Neutrophils Percent Auto 22.5 % (45-73); Platelet Count 241 X10*3/uL (160-400); SCAN SMEAR FLAG 1; White Blood Count 2.9 X10*3/uL (4.8-10.8)
[2021-11-20 11:14] LABS: SLIDE REVIEW VERIFIED
== END 2021-11-20 08:51 | disposition home or self-care (01) ==
LOC: HO.WFDLDS 08:50
PROVIDERS: Visit Provider Nurse Practitioner Family
DX: M06.00 Rheumatoid arthritis without rheumatoid factor, unspecified site (principal)
CPT/HCPCS: 36415; 85025

== ENCOUNTER → 2021-12-23 08:31 | Outpatient (BNVA) | payer MEDICARE, SELFPAY | PROVIDERS: Visit Provider Orthopaedic Surgery | DX: M70.62 Trochanteric bursitis, left hip (principal); M70.61 Trochanteric bursitis, right hip; D47.2 Monoclonal gammopathy; D86.9 Sarcoidosis, unspecified; M06.00 Rheumatoid arthritis without rheumatoid factor, unspecified site; Z79.899 Other long term (current) drug therapy | CPT/HCPCS: 99212 ==

== ENCOUNTER 2022-01-11 07:33 | Outpatient (REF) | payer MEDICARE, SELFPAY ==
[2022-01-11 07:58] LABS: MANUAL DIFF FLAG NO
[2022-01-11 08:11] LABS: Basophils Percent Auto 0.8 % (0-2); Eosinophils Absolute Auto 0.1 X10*3/uL (0.0-0.4); Eosinophils Percent Auto 2.2 % (0-4); Hematocrit 40.1 % (37.0-47.0); Hemoglobin 13.7 g/dl (12.0-16.0); Imm Gran Abs Auto 0.01 X10*3/uL (0.00-0.03); Imm Gran Pct Auto 0.2 % (0.0-0.4); Lymphocytes Absolute Auto 0.9 X10*3/uL (1.2-4.9); Lymphocytes Percent Auto 19.2 % (20-40); Mean Corpuscular HGB Conc 34.2 g/dl (31.0-35.0); Mean Corpuscular Hemoglobin 31.6 pg (27.0-33.0); Mean Corpuscular Volume 92.4 fL (80.0-98.0); Mean Platelet Volume 10.8 fL (9.4-12.3); Monocytes Absolute Auto 0.7 X10*3/uL (0.1-1.2); Monocytes Percent Auto 13.7 % (2-11); Neutrophils Absolute Auto 3.1 x10*3/uL (2.0-8.3); Neutrophils Percent Auto 63.9 % (45-73); Platelet Count 213 X10*3/uL (160-400); Red Blood Count 4.34 X10*6/uL (4.20-5.50); White Blood Count 4.9 X10*3/uL (4.8-10.8)
[2022-01-11 08:35] LABS: Alanine Aminotransferase 65 U/L (0-31); Albumin Level 3.9 g/dL (3.5-5.0); Alkaline Phosphatase 60 U/L (39-117); Anion Gap 13 (12-20); Aspartate Amino Transferase 64 U/L (5-31); Bilirubin Total 0.5 mg/dL (0.0-1.0); Blood Urea Nitrogen 12 mg/dL (9-16); C Reactive Protein 0.09 mg/dL (< or = 0.50); Calcium 9.4 mg/dL (8.4-10.2); Carbon Dioxide 24 mmol/L (22-29); Chloride 103 mmol/L (96-108); Estimated Glomerular Filt Rate > 60; Glucose Random 103 mg/dL (60-115); Potassium 4.1 mmol/L (3.3-5.1); Sodium 136 mmol/L (135-145); Total Protein 7.6 g/dL (6.5-8.0)
[2022-01-11 08:55] LABS: Erythrocyte Sedimentation Rate 9 MM/HR (0-20)
== END 2022-01-11 07:34 | disposition home or self-care (01) ==
LOC: HO.LAB 07:33
PROVIDERS: PCP Internal Medicine; Visit Provider Nurse Practitioner Family
DX: M06.00 Rheumatoid arthritis without rheumatoid factor, unspecified site (principal)
CPT/HCPCS: 36415; 80053; 85025; 85652; 86140

== ENCOUNTER → 2022-01-13 11:18 | Outpatient (BNVA) | payer MEDICARE, SELFPAY | PROVIDERS: PCP Internal Medicine; Visit Provider Nurse Practitioner Family | DX: M06.00 Rheumatoid arthritis without rheumatoid factor, unspecified site (principal); M81.0 Age-related osteoporosis without current pathological fracture; M70.61 Trochanteric bursitis, right hip; M70.62 Trochanteric bursitis, left hip; D86.0 Sarcoidosis of lung; D70.9 Neutropenia, unspecified; Z79.52 Long term (current) use of systemic steroids; Z79.899 Other long term (current) drug therapy | CPT/HCPCS: 96372; 99212; J0897 ==

== ENCOUNTER 2022-02-10 11:00 | Outpatient (REF) | payer MEDICARE, SELFPAY ==
[2022-02-10 12:06] LABS: Basophils Percent Auto 1.2 % (0-2); Eosinophils Absolute Auto 0.1 X10*3/uL (0.0-0.4); Eosinophils Percent Auto 4.1 % (0-4); Hematocrit 42.4 % (37.0-47.0); Hemoglobin 14.2 g/dl (12.0-16.0); Imm Gran Abs Auto 0.01 X10*3/uL (0.00-0.03); Imm Gran Pct Auto 0.4 % (0.0-0.4); Lymphocytes Absolute Auto 0.8 X10*3/uL (1.2-4.9); Lymphocytes Percent Auto 33.9 % (20-40); MANUAL DIFF FLAG SCAN; Mean Corpuscular HGB Conc 33.5 g/dl (31.0-35.0); Mean Corpuscular Hemoglobin 31.1 pg (27.0-33.0); Mean Platelet Volume 10.4 fL (9.4-12.3); Monocytes Absolute Auto 0.5 X10*3/uL (0.1-1.2); Monocytes Percent Auto 18.8 % (2-11); Neutrophils Percent Auto 41.6 % (45-73); Platelet Count 233 X10*3/uL (160-400); Red Blood Count 4.56 X10*6/uL (4.20-5.50); Red Cell Distribution Width 14.4 % (11.0-16.0); SCAN SMEAR FLAG 1
[2022-02-10 12:10] LABS: White Blood Count 2.5 X10*3/uL (4.8-10.8)
[2022-02-10 12:24] LABS: Alanine Aminotransferase 79 U/L (0-31); Albumin Level 4.1 g/dL (3.5-5.0); Alkaline Phosphatase 53 U/L (39-117); Anion Gap 11 (12-20); Aspartate Amino Transferase 65 U/L (5-31); Bilirubin Total 0.6 mg/dL (0.0-1.0); Blood Urea Nitrogen 13 mg/dL (9-16); C Reactive Protein 0.05 mg/dL (< or = 0.50); Calcium 9.9 mg/dL (8.4-10.2); Carbon Dioxide 26 mmol/L (22-29); Chloride 102 mmol/L (96-108); Estimated Glomerular Filt Rate > 60; Glucose Random 101 mg/dL (60-115); Potassium 4.2 mmol/L (3.3-5.1); Sodium 135 mmol/L (135-145); Total Protein 8.1 g/dL (6.5-8.0)
[2022-02-10 12:25] LABS: SLIDE REVIEW VERIFIED
[2022-02-10 12:50] LABS: Erythrocyte Sedimentation Rate 8 MM/HR (0-20)
== END 2022-02-10 11:01 | disposition home or self-care (01) ==
LOC: HO.LAB 11:00
PROVIDERS: PCP Internal Medicine; Visit Provider Nurse Practitioner Family
DX: M06.00 Rheumatoid arthritis without rheumatoid factor, unspecified site (principal)
CPT/HCPCS: 36415; 80053; 85025; 85652; 86140

== ENCOUNTER 2022-03-13 15:15 | Outpatient (REF) | payer MEDICARE, SELFPAY ==
[2022-03-13 15:39] LABS: Basophils Percent Auto 1.2 % (0-2); Eosinophils Absolute Auto 0.1 X10*3/uL (0.0-0.4); Eosinophils Percent Auto 3.7 % (0-4); Hematocrit 43.2 % (37.0-47.0); Hemoglobin 14.5 g/dl (12.0-16.0); Imm Gran Abs Auto 0.01 X10*3/uL (0.00-0.03); Imm Gran Pct Auto 0.3 % (0.0-0.4); Lymphocytes Absolute Auto 1.8 X10*3/uL (1.2-4.9); Lymphocytes Percent Auto 54.4 % (20-40); MANUAL DIFF FLAG SCAN; Mean Corpuscular HGB Conc 33.6 g/dl (31.0-35.0); Mean Corpuscular Volume 92.5 fL (80.0-98.0); Mean Platelet Volume 10.6 fL (9.4-12.3); Monocytes Absolute Auto 0.9 X10*3/uL (0.1-1.2); Monocytes Percent Auto 26.6 % (2-11); Neutrophils Absolute Auto 0.5 x10*3/uL (2.0-8.3); Neutrophils Percent Auto 13.8 % (45-73); Platelet Count 212 X10*3/uL (160-400); Red Blood Count 4.67 X10*6/uL (4.20-5.50); Red Cell Distribution Width 13.2 % (11.0-16.0); SCAN SMEAR FLAG 1; White Blood Count 3.3 X10*3/uL (4.8-10.8)
[2022-03-13 16:03] LABS: Alanine Aminotransferase 23 U/L (0-31); Albumin Level 4.1 g/dL (3.5-5.0); Alkaline Phosphatase 61 U/L (39-117); Anion Gap 10 (12-20); Aspartate Amino Transferase 39 U/L (5-31); Bilirubin Total 0.4 mg/dL (0.0-1.0); Blood Urea Nitrogen 17 mg/dL (9-16); C Reactive Protein 0.04 mg/dL (< or = 0.50); Calcium 9.6 mg/dL (8.4-10.2); Carbon Dioxide 30 mmol/L (22-29); Chloride 101 mmol/L (96-108); Estimated Glomerular Filt Rate 52; Glucose Random 93 mg/dL (60-115); Potassium 4.4 mmol/L (3.3-5.1); Sodium 137 mmol/L (135-145); Total Protein 8.1 g/dL (6.5-8.0)
[2022-03-13 16:07] LABS: SLIDE REVIEW VERIFIED
[2022-03-13 16:31] LABS: Erythrocyte Sedimentation Rate 9 MM/HR (0-20)
== END 2022-03-13 15:16 | disposition home or self-care (01) ==
LOC: HO.LAB 15:15
PROVIDERS: PCP Internal Medicine; Visit Provider Nurse Practitioner Family
DX: M06.00 Rheumatoid arthritis without rheumatoid factor, unspecified site (principal)
CPT/HCPCS: 36415; 80053; 85025; 85652; 86140

== ENCOUNTER → 2022-03-17 08:04 | Outpatient (BNVA) | payer MEDICARE, SELFPAY | PROVIDERS: PCP Internal Medicine; Visit Provider Nurse Practitioner Family | DX: M06.09 Rheumatoid arthritis without rheumatoid factor, multiple sites (principal); M81.0 Age-related osteoporosis without current pathological fracture; D70.9 Neutropenia, unspecified; D86.9 Sarcoidosis, unspecified; M70.61 Trochanteric bursitis, right hip; M70.62 Trochanteric bursitis, left hip; Z79.52 Long term (current) use of systemic steroids; Z79.899 Other long term (current) drug therapy | CPT/HCPCS: 99212 ==

== ENCOUNTER 2022-04-07 07:35 | Outpatient (REF) | payer MEDICARE, SELFPAY ==
[2022-04-07 11:27] LABS: Eosinophils Absolute Auto 0.2 X10*3/uL (0.0-0.4); Eosinophils Percent Auto 3.9 % (0-4); Imm Gran Abs Auto 0.01 X10*3/uL (0.00-0.03); Imm Gran Pct Auto 0.2 % (0.0-0.4); Lymphocytes Absolute Auto 1.5 X10*3/uL (1.2-4.9); Lymphocytes Percent Auto 37.6 % (20-40); MANUAL DIFF FLAG SCAN; Mean Corpuscular HGB Conc 33.3 g/dl (31.0-35.0); Mean Corpuscular Hemoglobin 30.9 pg (27.0-33.0); Mean Corpuscular Volume 92.6 fL (80.0-98.0); Monocytes Absolute Auto 0.9 X10*3/uL (0.1-1.2); Monocytes Percent Auto 22.4 % (2-11); Neutrophils Absolute Auto 1.4 x10*3/uL (2.0-8.3); Neutrophils Percent Auto 34.9 % (45-73); Platelet Count 208 X10*3/uL (160-400); Red Blood Count 4.21 X10*6/uL (4.20-5.50); SCAN SMEAR FLAG 1; White Blood Count 4.1 X10*3/uL (4.8-10.8)
[2022-04-07 11:35] LABS: Alanine Aminotransferase 21 U/L (0-31); Albumin Level 3.8 g/dL (3.5-5.0); Alkaline Phosphatase 65 U/L (39-117); Anion Gap 10 (12-20); Aspartate Amino Transferase 33 U/L (5-31); Bilirubin Total 0.3 mg/dL (0.0-1.0); Blood Urea Nitrogen 12 mg/dL (9-16); C Reactive Protein 2.06 mg/dL (< or = 0.50); Calcium 8.9 mg/dL (8.4-10.2); Carbon Dioxide 27 mmol/L (22-29); Chloride 102 mmol/L (96-108); Estimated Glomerular Filt Rate > 60; Glucose Random 66 mg/dL (60-115); Potassium 4.1 mmol/L (3.3-5.1); Sodium 135 mmol/L (135-145); Total Protein 7.6 g/dL (6.5-8.0)
[2022-04-07 11:50] LABS: SLIDE REVIEW VERIFIED
[2022-04-07 12:09] LABS: Erythrocyte Sedimentation Rate 23 MM/HR (0-20)
== END 2022-04-07 07:36 | disposition home or self-care (01) ==
LOC: HO.WFDLDS 07:35
PROVIDERS: Visit Provider Nurse Practitioner Family
DX: M06.00 Rheumatoid arthritis without rheumatoid factor, unspecified site (principal)
CPT/HCPCS: 36415; 80053; 85025; 85652; 86140

== ENCOUNTER 2022-04-21 07:52 | Outpatient (REF) | payer MEDICARE, SELFPAY ==
[2022-04-21 11:22] LABS: MANUAL DIFF FLAG NO
[2022-04-21 11:35] LABS: Basophils Percent Auto 0.9 % (0-2); Eosinophils Absolute Auto 0.1 X10*3/uL (0.0-0.4); Hematocrit 40.3 % (37.0-47.0); Hemoglobin 13.3 g/dl (12.0-16.0); Imm Gran Abs Auto 0.02 X10*3/uL (0.00-0.03); Imm Gran Pct Auto 0.5 % (0.0-0.4); Lymphocytes Absolute Auto 1.6 X10*3/uL (1.2-4.9); Lymphocytes Percent Auto 36.4 % (20-40); Mean Corpuscular Hemoglobin 30.3 pg (27.0-33.0); Mean Corpuscular Volume 91.8 fL (80.0-98.0); Mean Platelet Volume 10.2 fL (9.4-12.3); Monocytes Absolute Auto 0.8 X10*3/uL (0.1-1.2); Monocytes Percent Auto 17.4 % (2-11); Neutrophils Absolute Auto 1.8 x10*3/uL (2.0-8.3); Neutrophils Percent Auto 41.8 % (45-73); Platelet Count 297 X10*3/uL (160-400); Red Blood Count 4.39 X10*6/uL (4.20-5.50); Red Cell Distribution Width 12.6 % (11.0-16.0); White Blood Count 4.3 X10*3/uL (4.8-10.8)
[2022-04-21 12:12] LABS: Erythrocyte Sedimentation Rate 38 MM/HR (0-20)
[2022-04-21 12:13] LABS: Alanine Aminotransferase 21 U/L (0-31); Albumin Level 3.7 g/dL (3.5-5.0); Alkaline Phosphatase 74 U/L (39-117); Anion Gap 13 (12-20); Aspartate Amino Transferase 29 U/L (5-31); Bilirubin Total 0.3 mg/dL (0.0-1.0); Blood Urea Nitrogen 12 mg/dL (9-16); C Reactive Protein 2.74 mg/dL (< or = 0.50); Calcium 9.1 mg/dL (8.4-10.2); Carbon Dioxide 27 mmol/L (22-29); Chloride 100 mmol/L (96-108); Estimated Glomerular Filt Rate > 60; Glucose Random 78 mg/dL (60-115); Potassium 4.3 mmol/L (3.3-5.1); Sodium 136 mmol/L (135-145); Total Protein 7.7 g/dL (6.5-8.0)
== END 2022-04-21 07:53 | disposition home or self-care (01) ==
LOC: HO.WFDLDS 07:52
PROVIDERS: Visit Provider Nurse Practitioner Family
DX: M06.00 Rheumatoid arthritis without rheumatoid factor, unspecified site (principal); M25.551 Pain in right hip
CPT/HCPCS: 36415; 80053; 85025; 85652; 86140

== ENCOUNTER 2022-05-02 08:55 | Outpatient (REF) | payer MEDICARE, SELFPAY ==
--- NOTE | ~2022-05-02 | MM_ITS ---
EXAMINATION: MM SCREENING DIGITAL BREAST TOMOSYNTHESIS, BILATERAL CLINICAL INFORMATION: Screening. Asymptomatic. The lifetime risk of breast cancer based on the Tyrer-Cuzick Model is 3%. COMPARISON: Mammography: 05/01/2021, 04/26/2020, 12/04/2018 TECHNIQUE: Digital breast tomosynthesis is performed in both the craniocaudal and mediolateral oblique views along with computer-aided detection (CAD). Synthesized 2D images are generated from the tomosynthesis. FINDINGS: There are scattered areas of fibroglandular density (ACR BI-RADS breast composition Category b). There are no significant masses, abnormal calcifications, or other abnormalities. Parenchymal pattern is similar to prior studies. There is no developing density or architectural abnormality. The axilla and skin contours are unremarkable. No significant changes. MM/MM tomosynthesis screening BI IMPRESSION: No mammographic evidence of malignancy. ASSESSMENT: BI-RADS 1: Negative RECOMMENDATION: Routine annual mammography screening. This patient's information was entered into a reminder system with a target due date for their next mammogram.
== END 2022-05-02 08:56 | disposition home or self-care (01) ==
LOC: HO.MAMMO 08:55
PROVIDERS: PCP Internal Medicine; Visit Provider Internal Medicine
DX: Z12.31 Encounter for screening mammogram for malignant neoplasm of breast (principal)
CPT/HCPCS: 77063; 77067

== ENCOUNTER 2022-06-05 12:29 | Outpatient (REF) | payer MEDICARE, SELFPAY ==
[2022-06-05 14:34] LABS: Basophils Percent Auto 0.9 % (0-2); Eosinophils Absolute Auto 0.1 X10*3/uL (0.0-0.4); Eosinophils Percent Auto 3.1 % (0-4); Hematocrit 40.7 % (37.0-47.0); Hemoglobin 13.5 g/dl (12.0-16.0); Imm Gran Abs Auto 0.01 X10*3/uL (0.00-0.03); Imm Gran Pct Auto 0.3 % (0.0-0.4); Lymphocytes Absolute Auto 1.8 X10*3/uL (1.2-4.9); Lymphocytes Percent Auto 55.1 % (20-40); MANUAL DIFF FLAG SCAN; Mean Corpuscular HGB Conc 33.2 g/dl (31.0-35.0); Mean Corpuscular Hemoglobin 29.3 pg (27.0-33.0); Mean Corpuscular Volume 88.5 fL (80.0-98.0); Monocytes Absolute Auto 0.5 X10*3/uL (0.1-1.2); Monocytes Percent Auto 15.2 % (2-11); Neutrophils Absolute Auto 0.8 x10*3/uL (2.0-8.3); Neutrophils Percent Auto 25.4 % (45-73); Platelet Count 293 X10*3/uL (160-400); Red Cell Distribution Width 12.8 % (11.0-16.0); SCAN SMEAR FLAG 1; White Blood Count 3.2 X10*3/uL (4.8-10.8)
[2022-06-05 14:48] LABS: Alanine Aminotransferase 20 U/L (0-31); Aspartate Amino Transferase 36 U/L (5-31); Estimated Glomerular Filt Rate > 60
[2022-06-05 15:13] LABS: SLIDE REVIEW VERIFIED
[2022-06-05 15:16] LABS: Erythrocyte Sedimentation Rate 51 MM/HR (0-20)
== END 2022-06-05 12:30 | disposition home or self-care (01) ==
LOC: HO.WFDLDS 12:29
PROVIDERS: Visit Provider Nurse Practitioner Family
DX: M06.00 Rheumatoid arthritis without rheumatoid factor, unspecified site (principal); Z79.899 Other long term (current) drug therapy
CPT/HCPCS: 36415; 82565; 84450; 84460; 85025; 85652; 86140

== ENCOUNTER → 2022-06-09 08:27 | Outpatient (BNVA) | payer MEDICARE, SELFPAY | PROVIDERS: PCP Internal Medicine; Visit Provider Nurse Practitioner Family | DX: M06.00 Rheumatoid arthritis without rheumatoid factor, unspecified site (principal); D70.9 Neutropenia, unspecified; D86.9 Sarcoidosis, unspecified; M81.0 Age-related osteoporosis without current pathological fracture; M70.61 Trochanteric bursitis, right hip; M70.62 Trochanteric bursitis, left hip; Z79.52 Long term (current) use of systemic steroids; Z79.899 Other long term (current) drug therapy | CPT/HCPCS: 99212 ==

== ENCOUNTER → 2022-06-17 08:46 | Outpatient (BNVA) | payer MEDICARE, SELFPAY | PROVIDERS: PCP Internal Medicine; Visit Provider Hospitalist | DX: J43.2 Centrilobular emphysema (principal); D86.9 Sarcoidosis, unspecified; M06.00 Rheumatoid arthritis without rheumatoid factor, unspecified site; Z79.52 Long term (current) use of systemic steroids | CPT/HCPCS: 99212 ==

== ENCOUNTER 2022-06-23 09:27 | Outpatient (REF) | payer MEDICARE, SELFPAY ==
[2022-06-23 11:13] LABS: MANUAL DIFF FLAG NO
[2022-06-23 11:34] LABS: Basophils Absolute Auto 0.1 X10*3/uL (0.0-0.2); Basophils Percent Auto 1.5 % (0-2); Eosinophils Absolute Auto 0.1 X10*3/uL (0.0-0.4); Eosinophils Percent Auto 2.7 % (0-4); Hematocrit 40.3 % (37.0-47.0); Hemoglobin 13.3 g/dl (12.0-16.0); Imm Gran Abs Auto 0.02 X10*3/uL (0.00-0.03); Imm Gran Pct Auto 0.5 % (0.0-0.4); Lymphocytes Absolute Auto 1.2 X10*3/uL (1.2-4.9); Lymphocytes Percent Auto 28.7 % (20-40); Mean Corpuscular Hemoglobin 29.5 pg (27.0-33.0); Mean Corpuscular Volume 89.4 fL (80.0-98.0); Mean Platelet Volume 10.4 fL (9.4-12.3); Monocytes Absolute Auto 0.7 X10*3/uL (0.1-1.2); Monocytes Percent Auto 18.5 % (2-11); Neutrophils Absolute Auto 1.9 x10*3/uL (2.0-8.3); Neutrophils Percent Auto 48.1 % (45-73); Platelet Count 279 X10*3/uL (160-400); Red Blood Count 4.51 X10*6/uL (4.20-5.50); Red Cell Distribution Width 13.2 % (11.0-16.0)
[2022-06-23 12:07] LABS: Erythrocyte Sedimentation Rate 50 MM/HR (0-20)
[2022-06-23 12:24] LABS: Alanine Aminotransferase 19 U/L (0-31); Alkaline Phosphatase 79 U/L (39-117); Anion Gap 15 (12-20); Aspartate Amino Transferase 33 U/L (5-31); Bilirubin Total 0.5 mg/dL (0.0-1.0); Blood Urea Nitrogen 11 mg/dL (9-16); C Reactive Protein 1.31 mg/dL (< or = 0.50); Calcium 9.2 mg/dL (8.4-10.2); Carbon Dioxide 25 mmol/L (22-29); Chloride 100 mmol/L (96-108); Estimated Glomerular Filt Rate > 60; Glucose Random 87 mg/dL (60-115); Potassium 4.2 mmol/L (3.3-5.1); Sodium 136 mmol/L (135-145); Total Protein 8.6 g/dL (6.5-8.0)
[2022-06-23 12:38] LABS: Vitamin D 25-OH Total 46.3 ng/mL (>30)
[2022-06-24 12:42] LABS: Immunoglobulin E 4 kU/L (<OR=114)
[2022-06-26 06:32] LABS: Angiotensin Converting Enzyme 9 U/L (9-67)
== END 2022-06-23 09:28 | disposition home or self-care (01) ==
LOC: HO.WFDLDS 09:27
PROVIDERS: Hospitalist; Visit Provider Nurse Practitioner Family
DX: M06.00 Rheumatoid arthritis without rheumatoid factor, unspecified site (principal); D86.9 Sarcoidosis, unspecified; Z79.899 Other long term (current) drug therapy
CPT/HCPCS: 36415; 80053; 82164; 82306; 82785; 85025; 85652; 86140

== ENCOUNTER 2022-07-16 08:10 | Outpatient (REF) | payer MEDICARE, SELFPAY ==
[2022-07-16 10:17] LABS: MANUAL DIFF FLAG NO
[2022-07-16 10:20] LABS: Basophils Absolute Auto 0.1 X10*3/uL (0.0-0.2); Basophils Percent Auto 1.6 % (0-2); Eosinophils Absolute Auto 0.1 X10*3/uL (0.0-0.4); Eosinophils Percent Auto 2.2 % (0-4); Hematocrit 39.7 % (37.0-47.0); Imm Gran Abs Auto 0.02 X10*3/uL (0.00-0.03); Imm Gran Pct Auto 0.4 % (0.0-0.4); Lymphocytes Absolute Auto 1.4 X10*3/uL (1.2-4.9); Lymphocytes Percent Auto 28.4 % (20-40); Mean Corpuscular HGB Conc 32.7 g/dl (31.0-35.0); Mean Corpuscular Hemoglobin 28.8 pg (27.0-33.0); Mean Platelet Volume 10.1 fL (9.4-12.3); Monocytes Absolute Auto 0.6 X10*3/uL (0.1-1.2); Monocytes Percent Auto 13.1 % (2-11); Neutrophils Absolute Auto 2.7 x10*3/uL (2.0-8.3); Neutrophils Percent Auto 54.3 % (45-73); Platelet Count 317 X10*3/uL (160-400); Red Blood Count 4.51 X10*6/uL (4.20-5.50); Red Cell Distribution Width 13.7 % (11.0-16.0); White Blood Count 4.9 X10*3/uL (4.8-10.8)
[2022-07-16 10:36] LABS: Alanine Aminotransferase 16 U/L (0-31); Aspartate Amino Transferase 34 U/L (5-31); C Reactive Protein 1.15 mg/dL (< or = 0.50); Estimated Glomerular Filt Rate > 60
[2022-07-16 11:00] LABS: Erythrocyte Sedimentation Rate 51 MM/HR (0-20)
== END 2022-07-16 08:11 | disposition home or self-care (01) ==
LOC: HO.10HDL 08:10
PROVIDERS: Visit Provider Nurse Practitioner Family
DX: M81.0 Age-related osteoporosis without current pathological fracture (principal); M06.00 Rheumatoid arthritis without rheumatoid factor, unspecified site; Z79.899 Other long term (current) drug therapy
CPT/HCPCS: 36415; 82565; 84450; 84460; 85025; 85652; 86140; 96372

== ENCOUNTER → 2022-08-08 09:11 | Outpatient (BNVA) | payer MEDICARE, SELFPAY | PROVIDERS: PCP Internal Medicine; Visit Provider Nurse Practitioner Family | DX: M06.00 Rheumatoid arthritis without rheumatoid factor, unspecified site (principal); D70.9 Neutropenia, unspecified; D86.9 Sarcoidosis, unspecified; M81.0 Age-related osteoporosis without current pathological fracture; M70.61 Trochanteric bursitis, right hip; M70.62 Trochanteric bursitis, left hip; Z79.52 Long term (current) use of systemic steroids | CPT/HCPCS: 99212 ==

== ENCOUNTER 2022-08-20 09:24 | Outpatient (REF) | payer MEDICARE, SELFPAY ==
[2022-08-20 12:10] LABS: Influenza A PCR NEGATIVE (Negative); Influenza B PCR NEGATIVE (Negative); Resp Syncy Virus RNA Qual PCR NEGATIVE (Negative); SARS COV2 PCR INHOUSE NEGATIVE (Negative)
== END 2022-08-20 09:25 | disposition home or self-care (01) ==
LOC: HO.LAB 09:24
PROVIDERS: Visit Provider Nurse Practitioner Family
DX: R09.89 Other specified symptoms and signs involving the circulatory and respiratory systems (principal); Z20.822 Contact with and (suspected) exposure to COVID-19
CPT/HCPCS: 0241U

== ENCOUNTER 2022-09-09 07:11 | Outpatient (REF) | payer MEDICARE, SELFPAY ==
[2022-09-09 13:45] LABS: Alanine Aminotransferase 16 U/L (0-31); Albumin Level 3.6 g/dL (3.5-5.0); Alkaline Phosphatase 73 U/L (39-117); Anion Gap 12 (12-20); Aspartate Amino Transferase 26 U/L (5-31); Bilirubin Total 0.3 mg/dL (0.0-1.0); Blood Urea Nitrogen 12 mg/dL (9-16); Carbon Dioxide 26 mmol/L (22-29); Chloride 103 mmol/L (96-108); Cholesterol 234 mg/dL; Estimated Glomerular Filt Rate > 60; Glucose Fasting 83 mg/dL (60-99); HDL Cholesterol 66 mg/dL; LDL Cholesterol Calculated 138 mg/dl; Potassium 4.4 mmol/L (3.3-5.1); Sodium 137 mmol/L (135-145); Total Protein 7.9 g/dL (6.5-8.0); Triglycerides 154 mg/dL
== END 2022-09-09 07:12 | disposition home or self-care (01) ==
LOC: HO.WFDLDS 07:11
PROVIDERS: PCP Internal Medicine; Visit Provider Nurse Practitioner Family
DX: Z00.00 Encounter for general adult medical examination without abnormal findings (principal)
CPT/HCPCS: 36415; 80053; 80061

== ENCOUNTER → 2022-10-23 13:54 | Outpatient (BNVA) | payer MEDICARE, SELFPAY | PROVIDERS: PCP Internal Medicine; Visit Provider Nurse Practitioner Family | DX: M06.042 Rheumatoid arthritis without rheumatoid factor, left hand (principal); M06.041 Rheumatoid arthritis without rheumatoid factor, right hand; M06.032 Rheumatoid arthritis without rheumatoid factor, left wrist; M06.031 Rheumatoid arthritis without rheumatoid factor, right wrist; M06.072 Rheumatoid arthritis without rheumatoid factor, left ankle and foot; M06.071 Rheumatoid arthritis without rheumatoid factor, right ankle and foot; M81.0 Age-related osteoporosis without current pathological fracture; D70.9 Neutropenia, unspecified; D86.9 Sarcoidosis, unspecified; Z79.52 Long term (current) use of systemic steroids | CPT/HCPCS: 99212 ==

== ENCOUNTER 2022-10-24 11:27 | Outpatient (REF) | payer MEDICARE, SELFPAY ==
[2022-10-24 12:50] LABS: C Reactive Protein 0.46 mg/dL (< or = 0.50)
[2022-10-24 13:09] LABS: Erythrocyte Sedimentation Rate 37 MM/HR (0-20)
== END 2022-10-24 11:28 | disposition home or self-care (01) ==
LOC: HO.LAB 11:27
PROVIDERS: PCP Internal Medicine; Visit Provider Nurse Practitioner Family
DX: M06.00 Rheumatoid arthritis without rheumatoid factor, unspecified site (principal)
CPT/HCPCS: 36415; 85652; 86140

== ENCOUNTER 2022-10-31 08:34 | Outpatient (REF) | payer MEDICARE, SELFPAY ==
--- NOTE | ~2022-10-31 | MM_ITS ---
EXAMINATION: BONE DENSITOMETRY CLINICAL INDICATION: Osteoporosis. COMPARISON: Previous BD dated 10/10/2020 and baseline BD dated 03/21/2008. TECHNIQUE: Using a [employer] DXA System (software version: 13.1) manufactured by [employer], dual-energy x-ray absorptiometry was performed of the lumbar spine and left hip. The images are of good technical quality. Summary results are attached. FINDINGS: AP SPINE L1-L4: Current: BMD 1.364 g/cm2, Z-score 2.5, T-score 1.5, normal, 0.6% increase from previous, 4.4% decrease from baseline (<5% change is not significant). Prior: BMD 1.356 g/cm2. Baseline: BMD 1.427 g/cm2. LEFT FEMUR, NECK: Current: BMD 0.881 g/cm2, Z-score 0.2, T-score -1.1, osteopenia. Prior: BMD 0.867 g/cm2. Baseline: BMD 0.935 g/cm2. LEFT FEMUR, TOTAL: Current: BMD 0.897 g/cm2, Z-score 0.1, T-score -0.9, normal, 0.2% increase from previous, 10.9% decrease from baseline (<5% change is not significant). Prior: BMD 0.895 g/cm2. Baseline: BMD 1.007 g/cm2. IDENTIFIED RISK FACTORS: Early menopause, glucocorticoids (chronic), osteoporosis, rheumatoid arthritis, secondary osteoporosis. HISTORY OF FRACTURE: None listed. MEDICATIONS: Calcium, vitamin D, Prolia. MM/XR DEXA axial skeleton IMPRESSION: 1. DIAGNOSIS: Osteopenia based on the lowest T-score value of -1.1 in the femoral neck applying World Health Organization criteria. 2. 10-YEAR FRACTURE RISK PREDICTION, FRAX: Not performed in this patient on estrogen or bone building treatments. 3. Treatment Recommendations: NOF guidelines recommend consideration for treatment in postmenopausal women and men age 50 and older presenting with the following: -A hip or vertebral (clinical or morphometric) fracture. -T-score less than or equal to -2.5 at the femoral neck or spine after appropriate evaluation to exclude secondary causes. -Low bone mass at the hip or spine and a 10-year fracture probability by FRAX of greater than or equal to 3% for hip fracture or greater than or equal to 20% for major osteoporotic fracture based on the [place] adapted WHO algorithm. 4. Other Recommendations: All treatment decisions require clinical judgment and consideration of individual patient factors, including patient preferences, comorbidities, previous drug use, risk factors not captured in the FRAX model (e.g. frailty, falls, vitamin D deficiency, increased bone turnover, interval significant decline in bone density) and possible under or overestimation of fracture risk by FRAX. Additional medical evaluation for secondary cause of low bone mineral density may be appropriate. FUTURE SCAN RECOMMENDATION: People with diagnosed cases of osteoporosis or at high risk for fracture should have regular bone mineral density tests. For patients eligible for Medicare, routine testing is allowed once every 2 years. The testing frequency can be increased to one year for patients who have rapidly progressing disease, those who are receiving or discontinuing medical therapy to restore bone mass, or have additional risk factors.
== END 2022-10-31 08:35 | disposition home or self-care (01) ==
LOC: HO.MAMMO 08:34
PROVIDERS: PCP Internal Medicine; Visit Provider Nurse Practitioner Family
DX: M81.0 Age-related osteoporosis without current pathological fracture (principal)
CPT/HCPCS: 77080

== ENCOUNTER 2023-01-12 11:12 | Outpatient (REF) | payer MEDICARE, SELFPAY ==
[2023-01-12 11:19] VITALS: BMI 30.5
[2023-01-12 11:21] VITALS: BP 132/82; PULSE 104; RESP 17; TEMP 35.6; O2SAT 97
[2023-01-12 13:09] VITALS: BP 140/78; PULSE 90; RESP 16; O2SAT 96
== END 2023-01-12 11:13 | disposition home or self-care (01) ==
LOC: HO.MS 11:12
PROVIDERS: PCP Internal Medicine; Visit Provider Ophthalmology
PROC: (CPT 67840; principal; 2023-01-12 13:00)
DX: H02.61 Xanthelasma of right upper eyelid (principal); H02.62 Xanthelasma of right lower eyelid; H02.64 Xanthelasma of left upper eyelid; H02.65 Xanthelasma of left lower eyelid
CPT/HCPCS: 67840 ×2; 88305; 88313; 88342

== ENCOUNTER 2023-01-15 11:43 | Outpatient (REF) | payer MEDICARE, SELFPAY ==
[2023-01-15 13:55] LABS: MANUAL DIFF FLAG NO
[2023-01-15 14:16] LABS: Basophils Absolute Auto 0.1 X10*3/uL (0.0-0.2); Basophils Percent Auto 1.3 % (0-2); Eosinophils Percent Auto 0.8 % (0-4); Hematocrit 41.7 % (37.0-47.0); Hemoglobin 13.7 g/dl (12.0-16.0); Imm Gran Abs Auto 0.01 X10*3/uL (0.00-0.03); Imm Gran Pct Auto 0.3 % (0.0-0.4); Lymphocytes Absolute Auto 1.3 X10*3/uL (1.2-4.9); Mean Corpuscular HGB Conc 32.9 g/dl (31.0-35.0); Mean Corpuscular Hemoglobin 29.4 pg (27.0-33.0); Mean Corpuscular Volume 89.5 fL (80.0-98.0); Mean Platelet Volume 10.1 fL (9.4-12.3); Monocytes Absolute Auto 0.4 X10*3/uL (0.1-1.2); Monocytes Percent Auto 10.7 % (2-11); Neutrophils Percent Auto 52.9 % (45-73); Platelet Count 289 X10*3/uL (160-400); Red Blood Count 4.66 X10*6/uL (4.20-5.50); Red Cell Distribution Width 13.4 % (11.0-16.0); White Blood Count 3.7 X10*3/uL (4.8-10.8)
[2023-01-15 14:34] LABS: C Reactive Protein 0.49 mg/dL (< or = 0.50)
[2023-01-15 14:57] LABS: Erythrocyte Sedimentation Rate 38 MM/HR (0-20)
[2023-01-15 15:52] LABS: Anion Gap 13 (12-20)
[2023-01-15 15:56] LABS: Alanine Aminotransferase 22 U/L (0-31); Albumin Level 4.2 g/dL (3.5-5.0); Alkaline Phosphatase 75 U/L (39-117); Aspartate Amino Transferase 38 U/L (5-31); Bilirubin Total 0.4 mg/dL (0.0-1.0); Blood Urea Nitrogen 12 mg/dL (9-16); Calcium 9.7 mg/dL (8.4-10.2); Carbon Dioxide 25 mmol/L (22-29); Chloride 102 mmol/L (96-108); Estimated Glomerular Filt Rate > 60; Glucose Random 110 mg/dL (60-115); Potassium 4.4 mmol/L (3.3-5.1); Sodium 136 mmol/L (135-145); Total Protein 8.6 g/dL (6.5-8.0)
== END 2023-01-15 11:44 | disposition home or self-care (01) ==
LOC: HO.WFDLDS 11:43
PROVIDERS: Visit Provider Nurse Practitioner Family
DX: M06.00 Rheumatoid arthritis without rheumatoid factor, unspecified site (principal); Z79.899 Other long term (current) drug therapy
CPT/HCPCS: 36415; 80053; 85025; 85652; 86140

== ENCOUNTER → 2023-01-20 07:27 | Outpatient (BNVA) | payer MEDICARE, SELFPAY | PROVIDERS: PCP Internal Medicine; Visit Provider Nurse Practitioner Family | DX: M06.00 Rheumatoid arthritis without rheumatoid factor, unspecified site (principal); M81.0 Age-related osteoporosis without current pathological fracture; D70.9 Neutropenia, unspecified; D86.9 Sarcoidosis, unspecified; Z79.52 Long term (current) use of systemic steroids | CPT/HCPCS: 96372; 99212 ==

== ENCOUNTER → 2023-05-04 08:15 | Outpatient (BNV) | payer MEDICARE, SELFPAY | PROVIDERS: PCP Internal Medicine; Visit Provider Radiology Diagnostic Radiology | DX: Z12.31 Encounter for screening mammogram for malignant neoplasm of breast (principal) | CPT/HCPCS: 77063; 77067 ==

== ENCOUNTER 2023-05-04 08:18 | Outpatient (REF) | payer MEDICARE, SELFPAY ==
--- NOTE | ~2023-05-04 | MM_ITS ---
EXAMINATION: MM SCREENING DIGITAL BREAST TOMOSYNTHESIS, BILATERAL CLINICAL INFORMATION: Screening. Asymptomatic. COMPARISON: Mammography: 05/02/2022, 05/01/2021, 04/26/2020, and dating back to 2012. TECHNIQUE: Digital breast tomosynthesis is performed in both the craniocaudal and mediolateral oblique views along with computer-aided detection (CAD). Synthesized 2D images are generated from the tomosynthesis. FINDINGS: There are scattered areas of fibroglandular density (ACR BI-RADS breast composition Category b). There are no suspicious masses, suspicious grouped calcifications, or areas of architectural distortion. The parenchymal pattern is stable from prior exams. There are benign vascular calcifications bilaterally. There are no skin changes. MM/MM tomosynthesis screening BI IMPRESSION: No mammographic evidence of malignancy. ASSESSMENT: BI-RADS BI-RADS 2 - Benign Findings RECOMMENDATION: Routine annual mammography screening. 1 year F/U This examination should not preclude the clinical evaluation of a suspicious palpable abnormality. This patient's information was entered into a reminder system with a target due date for their next mammogram.
== END 2023-05-04 08:19 | disposition home or self-care (01) ==
LOC: HO.MAMMO 08:18
PROVIDERS: PCP Internal Medicine; Visit Provider Internal Medicine
DX: Z12.31 Encounter for screening mammogram for malignant neoplasm of breast (principal)
CPT/HCPCS: 77063; 77067

== ENCOUNTER 2023-05-08 10:28 | Outpatient (REF) | payer MEDICARE, SELFPAY ==
--- NOTE | ~2023-05-08 | CT_ITS ---
EXAMINATION: CT CHEST WITHOUT CONTRAST CLINICAL INFORMATION: Sarcoidosis COMPARISON: Previous chest CT April 2021 TECHNIQUE: Multidetector volumetric CT imaging of the chest was done. Axial MIP volume rendering provided. Sagittal and coronal reformatted images were obtained. This CT examination was performed using dose optimization techniques as appropriate, variously including the following: *Automated exposure control *Adjustment of mA and/or kV according to patient size (this includes techniques or standardized protocols for targeted exams where dose is matched to indication/reason for exam; i.e. extremities or head) *Use of iterative reconstruction technique DLP: 181 mGy-cm FINDINGS: INTERNATIONAL ACCOUNT REPRESENTATIVE: LUNGS: There is evidence of mild paraseptal emphysema. There are areas of linear scarring or chronic subsegmental atelectasis seen throughout the lungs. There is a 6 x 10 mm heterogeneous or semisolid posterior segment right upper lobe nodule adjacent to the major fissure axial image 65 series 9 that is stable. There is a 6 mm groundglass attenuation posterior segment right upper lobe nodule axial image 76 series 9 that is stable. There are clustered posterior segment right upper lobe nodules largest measuring 3 mm axial image 57 series 9 that are new. There are clustered apical posterior segment left upper lobe nodules near the fissure largest measuring 3 x 4 mm axial image 89 series 9 that are new. There are clustered lingular nodules largest measuring 6 mm axial image 106 series 9 that are new. There are clustered central right lower lobe nodules, largest measuring 3 x 4 mm axial image 135 series 9 that are new. There are clustered left lower lobe nodules along the diaphragmatic pleural surface largest measuring 4 mm axial image 146 series 9. MEDIASTINUM: No enlarged hilar or mediastinal lymph nodes. Atherosclerotic disease. Stent in the left common carotid artery. Normal caliber thoracic aorta. Normal heart size. Three-vessel coronary artery calcification. Trace pericardial effusion or thickening that is stable. CORONARY ARTERY CALCIFICATION: Severe. PLEURA: There is no pleural effusion. No pleural mass or thickening. AXILLA: No lymphadenopathy. UPPER ABDOMEN: Peripheral capsular splenic calcification similar to previous exam. OSSEOUS STRUCTURES: Degenerative changes of the spine. CT/CT chest wo IV con IMPRESSION: Mild emphysema. Multiple areas of new clustered nodules, largest in the lingula. Tree-in-bud appearance/airways disease as well as changes from sarcoidosis should be considered. No mediastinal or hilar lymphadenopathy. Severe atherosclerotic disease. Fleischner guidelines were followed.
== END 2023-05-08 10:29 | disposition home or self-care (01) ==
LOC: HO.CT 10:28
PROVIDERS: PCP Internal Medicine; Visit Provider Hospitalist
DX: D86.9 Sarcoidosis, unspecified (principal)
CPT/HCPCS: 71250

== ENCOUNTER 2023-05-20 12:32 | Outpatient (REF) | payer MEDICARE, SELFPAY ==
[2023-05-20 14:33] LABS: MANUAL DIFF FLAG NO
[2023-05-20 14:36] LABS: Basophils Absolute Auto 0.1 X10*3/uL (0.0-0.2); Basophils Percent Auto 2.7 % (0-2); Eosinophils Percent Auto 1.2 % (0-4); Hematocrit 39.1 % (37.0-47.0); Hemoglobin 13.1 g/dl (12.0-16.0); Imm Gran Abs Auto 0.01 X10*3/uL (0.00-0.03); Imm Gran Pct Auto 0.4 % (0.0-0.4); Lymphocytes Percent Auto 40.6 % (20-40); Mean Corpuscular HGB Conc 33.5 g/dl (31.0-35.0); Mean Corpuscular Volume 89.5 fL (80.0-98.0); Mean Platelet Volume 10.5 fL (9.4-12.3); Monocytes Absolute Auto 0.4 X10*3/uL (0.1-1.2); Monocytes Percent Auto 15.2 % (2-11); Neutrophils Percent Auto 39.9 % (45-73); Platelet Count 262 X10*3/uL (160-400); Red Blood Count 4.37 X10*6/uL (4.20-5.50); Red Cell Distribution Width 13.4 % (11.0-16.0); White Blood Count 2.6 X10*3/uL (4.8-10.8)
[2023-05-20 15:07] LABS: Alanine Aminotransferase 20 U/L (0-31); Alkaline Phosphatase 81 U/L (39-117); Anion Gap 12 (12-20); Aspartate Amino Transferase 39 U/L (5-31); Bilirubin Total 0.2 mg/dL (0.0-1.0); Blood Urea Nitrogen 11 mg/dL (9-16); C Reactive Protein 0.42 mg/dL (< or = 0.50); Carbon Dioxide 26 mmol/L (22-29); Chloride 103 mmol/L (96-108); Estimated Glomerular Filt Rate > 60; Glucose Random 130 mg/dL (60-115); Sodium 137 mmol/L (135-145); Total Protein 8.4 g/dL (6.5-8.0)
[2023-05-20 15:21] LABS: Erythrocyte Sedimentation Rate 30 MM/HR (0-20)
== END 2023-05-20 12:33 | disposition home or self-care (01) ==
LOC: HO.WFDLDS 12:32
PROVIDERS: Visit Provider Nurse Practitioner Family
DX: M06.9 Rheumatoid arthritis, unspecified (principal)
CPT/HCPCS: 36415; 80053; 85025; 85652; 86140

== ENCOUNTER 2023-05-26 08:17 | Outpatient (AMB) | payer MEDICARE, SELFPAY ==
[2023-05-26 08:32] VITALS: BP 134/70; PULSE 85; O2SAT 95; BMI 30.1
--- NOTE | 2023-05-26 08:32 | A.OFFVIS_ITS ---
Intake Vital Signs 05/26/23 08:32 Height 5 ft 7 in Weight 192 lb BMI 30.1 BP 134/70 Blood Pressure Location Lt brachial Position Sitting Pulse 85 Pulse Source Pulse Oximeter Pulse Oximetry (%) 95 Oxygen Delivery Method Room Air Intake Visit Reasons: CT follow up Insurance Sales Assistant Required: No Allergies Mnadqis-FDI-QlI Reductase Inhibitor [TIZDRDI-KUY-UMU REDUCTASE INHIBITOR] Allergy (Severe, Verified 05/26/23 08:35) ANAPHYLACTIC HPI HPI Comments History of Present Illness Details Patient is a 72 y/o woman with a history of seronegative rheumatoid arthritis followed closely by Rheumatology in addition to history of sarcoidosis and pulmonary nodules. Overall she is doing very well on methotrexate 4 tablets a week and she was initially on 5 mg of prednisone. Since she last saw the competitive athlete the recommendation was to drop down the prednisone to 4 mg. Even though her sedimentation rate was still elevated at 40. She did have a recent CT scan demonstrating stable pulmonary nodules in addition to some mild degree of emphysema. The patient is aware of this. At this point having stable pulmonary nodules the patient does need to have yearly follow-up at this time. She did have her eyes checked in appears to be stable and her lesion her face that is likely from her sarcoidosis also seems to be decreasing in size. Overall she is doing very well she is staying active and the conditions are not impacting her quality of life. ? 06/17/2022 the patient is here for a pulmonary follow-up visit. She is struggling with her arthritis. She is working on different agents to try to control her seronegative rheumatoid arthritis. The patient also has underlying sarcoidosis. Her breathing has been stable. Although she is going to the allergy season and she needs to have a rescue inhaler available. The patient continues on a small dose of prednisone. She was supposed to undergo a CT scan of the chest to follow-up pulmonary nodules. But, the patient was too busy and forgets to go to her appointment. The patient stands with following nodules that can potentially grow. At this point will have her go blood work to assess her and phlegm a carlos levels and also sarcoid levels. If there is any concerning will go ahead and request a CT scan now. Otherwise patient would like to wait until next summer to further evaluate the pulmonary nodules. Will plan to follow-up with her after her CT scan in a year's time, unless her blood work 05/26/2023 the patient is here for a pulmonary follow-up visit. The yoel ent overall has been doing better. She has been on a better regimen for her arthritis. She is responding well to the Orencia. She continues also to be on 10 mg of prednisone. She is working slowly to decrease that. As far as the sarcoidosis the patient does have regular follow-up sore pulmonary nodules. Her last CT scan was just done couple weeks ago. Appears that she does have some slight new nodules but very minimal amount. The other nodules are stable. Therefore, based on the fact that she does have some new nodules will plan to follow-up with a CT scan in a year's time. She does have a rescue inhaler that she has not required. Overall the patient is doing well. I am hopeful that she can cut down the prednisone. 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 at home: Yes (Son) Do you presently have visiting nurse or other home services: No Alcohol intake: current Alcohol intake frequency: holidays/special occasions only Alcohol type: wine Patient Tobacco Use Status: Never used Tobacco Tobacco use type: Cigarette e-Cigarette/Vaping Use: Never Used Second Hand Smoke Exposure: No Substance Use Type: Marijuana service: No Current occupational status: employed and retired Cognitive needs: No Hearing needs: No Vision needs: Yes (reading glasses) Review of Systems Const Denies night sweats ENT Denies change in voice, Denies lip swelling, Denies mouth pain, Reports nasal congestion, Reports nasal discharge and Denies tongue swelling Card Denies chest pain Resp Reports cough GI Denies abdominal pain Musc Reports as per HPI, Reports myalgias, Reports arthralgias and Reports joint swelling Neuro Denies Neuro-related abnormal movements Psych Denies no additional complaints Ricardo/Lymph Denies easy bleeding and Denies lymphadenopathy Aller/Immun Denies lip swelling and Denies tongue swelling Physical Exam Vital Signs: Last Vital Signs Pulse 85 05/26/23 08:32 BP 134/70 05/26/23 08:32 Pulse Ox 95 05/26/23 08:32 Oxygen Delivery Method Room Air 05/26/23 08:32 BMI result Body Mass Index 30.1 Const General: alert Neck Neck: Yes normal visual inspection, Yes full ROM and Yes no lymphadenopathy Chest Chest palpation & inspection: normal inspection of the chest Resp Auscultation: diminished lung sounds Cardio Rate: regular rate Rhythm: regular rhythm Heart sounds: S1 normal heart sound present and S2 normal heart sound present GI Palpation (GI): Soft to palpation and nontender Auscultation: normal bowel sounds Skin General skin exam: rashes and/or lesions noted Immunizations pneumoc 20-little conj-dip cr(PF) Performing Provider: Collins Ruff MD Administered by: Marbella Arceo LPN on 05/26/23 09:05 Dose Route Admin Location Lot Number Expiration Date NDC Blind Aide 0.5 mL IM Left Deltoid [id number] 07/21/24 [id number] Total Immersion/Povio VIS Given Date VIS Provided VIS Publication Date 05/26/23 Single Vaccine 23 Eligibility Eligibility Date Funding Source Not [facility] Eligible 05/26/23 Private Results Reviewed Results Reviewed: [address] [address] [address] Scan Report Signed Patient: Tasha Nieto MR#: [id number] : 1950 Acct:[id number] Age/Sex: 72 / F ADM Date: 05/08/23 Loc: HO.CT Attending Dr: Collins Ruff MD Ordering Physician: Collins Ruff MD Date of Service: 05/08/23 Procedure(s): CT chest wo IV con Accession Number(s): [id number] cc: Collins Ruff MD~ EXAMINATION: CT CHEST WITHOUT CONTRAST CLINICAL INFORMATION: Sarcoidosis? COMPARISON: Previous chest CT April 2021 TECHNIQUE: Multidetector volumetric CT imaging of the chest was done. Axial MIP volume rendering provided. Sagittal and coronal reformatted images were obtained.? This CT examination was performed using dose optimization techniques as appropriate, variously including the following: *Automated exposure control *Adjustment of mA and/or kV according to patient size (this includes techniques or standardized protocols for targeted exams where dose is matched to indication/reason for exam; i.e. extremities or head) *Use of iterative reconstruction technique DLP: 181 mGy-cm FINDINGS: INFORMATION SYSTEMS SECURITY MANAGER: LUNGS: There is evidence of mild paraseptal emphysema. There are areas of linear scarring or chronic subsegmental atelectasis seen throughout the lungs. There is a 6 x 10 mm heterogeneous or semisolid posterior segment right upper lobe nodule adjacent to the major fissure axial image 65 series 9 that is stable. There is a 6 mm groundglass attenuation posterior segment right upper lobe nodule axial image 76 series 9 that is stable. There are clustered posterior segment right upper lobe nodules largest measuring 3 mm axial image 57 series 9 that are new. There are clustered apical posterior segment left upper lobe nodules near the fissure largest measuring 3 x 4 mm axial image 89 series 9 that are new. There are clustered lingular nodules largest measuring 6 mm axial image 106 series 9 that are new. There are clustered central right lower lobe nodules, largest measuring 3 x 4 mm axial image 135 series 9 that are new. There are clustered left lower lobe nodules along the diaphragmatic pleural surface largest measuring 4 mm axial image 146 series 9. MEDIASTINUM: No enlarged hilar or mediastinal lymph nodes. Atherosclerotic disease. Stent in the left common carotid artery. Normal caliber thoracic aorta. Normal heart size. Three-vessel coronary artery calcification. Trace pericardial effusion or thickening that is stable. CORONARY ARTERY CALCIFICATION: Severe. PLEURA: There is no pleural effusion. No pleural mass or thickening.? AXILLA: No lymphadenopathy.? UPPER ABDOMEN: Peripheral capsular splenic calcification similar to previous exam. OSSEOUS STRUCTURES: Degenerative changes of the spine. CT/CT chest wo IV con IMPRESSION: Mild emphysema. Multiple areas of new clustered nodules, largest in the lingula. Tree-in-bud appearance/airways disease as well as changes from sarcoidosis should be considered. No mediastinal or hilar lymphadenopathy. Severe atherosclerotic disease. ? Fleischner guidelines were followed. Dictated By: Elaine Rausch MD Signed By: <Electronically signed by Elaine Rausch MD in OV> 05/12/23 0825 DD/ 1052 TD/TT:? Autopsy Pathologist: LYNNE Assessment & Plan Assessment & Plan (1) Sarcoidosis: Code(s): D86.9 - Sarcoidosis, unspecified (2) Seronegative rheumatoid arthritis: Comment: Jordyn-03/2022-present Code(s): M06.00 - Rheumatoid arthritis without rheumatoid factor, unspecified site (3) long term care phlebotomist systemic steroid user: Code(s): Z79.52 - long term care phlebotomist (current) use of systemic steroids (4) Emphysema lung: Code(s): J43.9 - Emphysema, unspecified Qualifiers: Emphysema type: centrilobular Qualified Code(s): J43.2 - Centrilobular emphysema (5) Pulmonary nodules: Code(s): R91.8 - Other nonspecific abnormal finding of lung field Plan Short-acting beta agonist as needed low dose prednisone, should slowly decrease dose ideally CT scan of the chest in 1 yr Prevnar 20 follow-up in 1 year Orders: Orders Pneumococcal 20 Immunization Today Z23 - Encounter for immunization CT chest wo IV con 04/25/24 D86.9 - Sarcoidosis, unspecified, R91.8 - Other nonspecific abnormal finding of lung field Coding Level of Care Code Est Pt Level 4 (26003) Diagnoses Sarcoidosis D86.9 Seronegative rheumatoid arthritis M06.00 long term care phlebotomist systemic steroid user Z79.52 Emphysema lung J43.2 Emphysema type: centrilobular Pulmonary nodules R91.8 Time Spent (min) 18
== END 2023-05-26 09:07 | disposition home or self-care (01) ==
PROVIDERS: PCP Internal Medicine; Visit Provider Hospitalist
DX: D86.9 Sarcoidosis, unspecified (principal); M06.00 Rheumatoid arthritis without rheumatoid factor, unspecified site; Z79.52 Long term (current) use of systemic steroids; J43.2 Centrilobular emphysema; R91.8 Other nonspecific abnormal finding of lung field
CPT/HCPCS: 99214

== ENCOUNTER → 2023-05-26 08:17 | Outpatient (BNVA) | payer MEDICARE, SELFPAY | PROVIDERS: Visit Provider Hospitalist | DX: D86.9 Sarcoidosis, unspecified (principal); M06.00 Rheumatoid arthritis without rheumatoid factor, unspecified site; J43.2 Centrilobular emphysema; R91.8 Other nonspecific abnormal finding of lung field; Z79.52 Long term (current) use of systemic steroids; Z23 Encounter for immunization | CPT/HCPCS: 90471; 90677; 99212 ==

== ENCOUNTER 2023-06-02 15:21 | Outpatient (AMB) | payer MEDICARE, SELFPAY ==
--- NOTE | 2023-06-02 15:25 | MHC.OFFVIS ---
Intake Vital Signs 06/02/23 15:26 Height 5 ft 7 in Weight 192 lb 14.472 oz BMI 30.2 BP 130/74 Blood Pressure Location Rt brachial Position Sitting Pulse 96 Pulse Source Pulse Oximeter Temp 97.2 F Pulse Oximetry (%) 97 Intake Visit Reasons: RA Intake Note: Pt presents today for RA follow up. States she feels good on Orencia. Charcoal Unloader Required: No Accompanied by: Self / Same As Patient Allergies Limcwjm-NXX-HxL Reductase Inhibitor [QKQLFGI-TSS-LAF REDUCTASE INHIBITOR] Allergy (Severe, Verified 06/02/23 15:30) ANAPHYLACTIC Medication List - Last Reconciled 06/02/23 by Anoop Bello MD abatacept (Orencia ClickJect) 125 mg subcut QWEEK albuterol sulfate 90 mcg/actuation 2 inhalations inhalation Q6H PRN 30 days alirocumab (Praluent Pen) 150 mg subcut Q2W amlodipine 5 mg PO DAILY bupropion HCl (Wellbutrin XL) 150 mg PO QAM 90 days cholecalciferol (vitamin D3) 25 mcg PO DAILY clopidogrel (Plavix) 75 mg PO DAILY denosumab (Prolia) 60 mg subcut [id number] diclofenac sodium 1% 2 grams topical QID PRN lisinopril 40 mg PO DAILY prednisone 10 mg (2 x 5 mg) PO DAILY tramadol 50 mg PO Q6H PRN 30 days HPI HPI Comments History of Present Illness Details This is a 72-year-old female with seronegative RA on Orencia and prednisone 10 mg daily, sarcoidosis followed by palm, leukopenia, MGUS followed by Hematology presents for follow-up. Patient states that she is doing the best she has been in a long time. She has doing doing great on Orencia. Denies any significant joint pain or stiffness. Denies any cough or shortness of breath. Denies any new skin rashes. Received her flu vaccine yesterday. Received her Orencia today. REPLACED BY [facility] Medical History Pulmonary nodules Mild recurrent major depression Emphysema lung Hip bursitis Depression Essential hypertension Surgical History History of coronary angiogram Hx of left knee surgery H/O cataract removal with insertion of prosthetic lens H/O laminectomy Carpal tunnel syndrome on both sides Family History Mother Leukemia Father Diabetes Heart disease Brother Heart disease Other No family history of cancer Social History Household Members: Spouse Housing: House Are you a primary toddler caregiver to a significant other at home: Yes (Son) Do you presently have visiting nurse or other home services: No Alcohol intake: current Alcohol intake frequency: holidays/special occasions only Alcohol type: wine Patient Tobacco Use Status: Never used Tobacco Tobacco use type: Cigarette e-Cigarette/Vaping Use: Never Used Second Hand Smoke Exposure: No Substance Use Type: Marijuana service: No Current occupational status: employed and retired Cognitive needs: No Hearing needs: No Vision needs: Yes (reading glasses) Review of Systems Card Denies dyspnea Resp Denies cough and Denies dyspnea Musc Reports arthralgias and Reports joint swelling Skin/Breast Denies rash Physical Exam Vital Signs: Last Vital Signs Temp 97.2 F 06/02/23 15:26 Pulse 96 06/02/23 15:26 BP 130/74 06/02/23 15:26 Pulse Ox 97 06/02/23 15:26 BMI result Body Mass Index 30.2 Const General: cooperative, healthy appearing and comfortable Nutritional Appearance: overweight Orientation/consciousness: patient oriented x3 Limitations: no limitations HEENT Head: Yes normocephalic and Yes atraumatic Mouth: moist mucous membranes Resp Effort & Inspection: normal respiratory effort and able to speak in complete sentences Auscultation: clear to auscultation bilaterally Cardio Rate: regular rate Rhythm: regular rhythm Neuro General: patient oriented x3 Extrem Other: Swelling of right 4th finger. Otherwise no active synovitis Normal nailfold capillaroscopy Results Reviewed Results Reviewed: Laboratory Tests W C-Reactive Protein 0.49 Date of Service: 10/31/22 Procedure(s): XR DEXA axial skeleton Accession Number(s): [id number] EXAMINATION: BONE DENSITOMETRY CLINICAL INDICATION: Osteoporosis. COMPARISON: Previous BD dated 10/10/2020 and baseline BD dated 03/21/2008. TECHNIQUE: Using a [employer] DXA System (software version: 13.1) manufactured by [employer], dual-energy x-ray absorptiometry was performed of the lumbar spine and left hip. The images are of good technical quality. Summary results are attached. FINDINGS: AP SPINE L1-L4: Current: BMD 1.364 g/cm2, Z-score 2.5, T-score 1.5, normal, 0.6% increase from previous, 4.4% decrease from baseline (<5% change is not significant). Prior: BMD 1.356 g/cm2. Baseline: BMD 1.427 g/cm2. LEFT FEMUR, NECK: Current: BMD 0.881 g/cm2, Z-score 0.2, T-score -1.1, osteopenia. Prior: BMD 0.867 g/cm2. Baseline: BMD 0.935 g/cm2. LEFT FEMUR, TOTAL: Current: BMD 0.897 g/cm2, Z-score 0.1, T-score -0.9, normal, 0.2% increase from previous, 10.9% decrease from baseline (<5% change is not significant). Prior: BMD 0.895 g/cm2. Baseline: BMD 1.007 g/cm2. IDENTIFIED RISK FACTORS: Early menopause, glucocorticoids (chronic), osteoporosis, rheumatoid arthritis, secondary osteoporosis. HISTORY OF FRACTURE: None listed. MEDICATIONS: Calcium, vitamin D, Prolia. MM/XR DEXA axial skeleton IMPRESSION: 1. DIAGNOSIS: Osteopenia based on the lowest T-score value of -1.1 in the femoral neck applying World Health Organization criteria.? Assessment & Plan Assessment & Plan (1) Seronegative rheumatoid arthritis: Comment: Humira -dates unknown Enbrel 03/2020-06/2021-discontinued due to active synovitis. Methotrexate- 03/2020-01/2022- increased LFTs- resolved once stopped. Kevzara- 07/11-03/2022- low absolute neutrophils Orencia-03/2022-present effective Code(s): M06.00 - Rheumatoid arthritis without rheumatoid factor, unspecified site Plan: This is a 72-year-old female with sarcoidosis and seronegative RA returns for follow-up. Doing quite well on Orencia weekly and prednisone 10 mg daily. She has 1 swollen joint on exam. Continue Orencia 125 mg subcutaneously once weekly and prednisone 10 mg daily. Will discuss tapering prednisone next visit. Consider alternating 10 mg daily with 7.5 mg daily Labs before next visit in 3 months (2) Osteoporosis: Comment: Alendronate-could not tolerate due to GI upset Prolia- March 2019- present Code(s): M81.0 - Age-related osteoporosis without current pathological fracture Qualifiers: Osteoporosis type: age-related Presence of current pathological fracture: without current pathological fracture Qualified Code(s): M81.0 - Age-related osteoporosis without current pathological fracture Plan: DEXA from August 2018 with osteopenia but high FRAX score. Patient started on alendronate but could not tolerated due to GI side effects, then switch to Prolia. Bone density from 10/10/2020 improved- osteopenia- AP spine L1-L2 T-score 0.8 normal, 7.8% increase from previous; left femur neck T-score -1.2; left femur total T-score -0.9 normal, 4.8% increase from previous. DEXA October 2022 Osteopenia based on the lowest T-score value of-1.1 in the femoral neck. Bone density is stable. Will continue Prolia next Prolia injection should be 11/2023 (3) Neutropenia: Code(s): D70.9 - Neutropenia, unspecified Qualifiers: Neutropenia type: unspecified Qualified Code(s): D70.9 - Neutropenia, unspecified Plan: Fluctuating neutropenia, can be due to underlying MGUS versus sarcoid infiltration of bone marrow. Potentially related to her Orencia. Continue to monitor. Continue to follow-up with heme/Onc (4) Sarcoidosis: Code(s): D86.9 - Sarcoidosis, unspecified Plan: Biopsy proven skin lesions. Following with Pulmonary. Gets regular CT scans every 6 months for pulmonary nodules. Recent CT chest showed few small nodules, patient however is not symptomatic. Continue to follow-up regularly with Pulmonary. (5) intermediate systemic steroid user: Code(s): Z79.52 - intermediate (current) use of systemic steroids Plan: Patient on long-term steroid therapy. As mentioned above will consider tapering next visit. Patient is on Prolia (6) Immunization counseling: Code(s): Z71.85 - Encounter for immunization safety counseling Plan: Discussed ACR vaccination guidelines for adults with autoimmune rheumatic disease on immune suppression. Explained that patient is eligible for the new RSV vaccine. Advised patient to hold Orencia 1 dosing interval before the vaccine and 2 weeks after the vaccine. Per guidelines patient is to hold vaccine 4 weeks after the vaccine however the patient and I believe that she will likely flare. There is a possibility that there would be a new COVID booster. I explained to patient that she can get both vaccines in the same day. Plan I spent 47 minutes reviewing patient's chart, evaluating patient, ordering diagnostic workup, counseling patient and documenting in the chart Orders: Orders C Reactive Protein 3 Months M06.9 - Rheumatoid arthritis, unspecified Erythrocyte Sedimentation Rate 3 Months M06.9 - Rheumatoid arthritis, unspecified Hepatitis A,B,C Profile 3 Months Z11.59 - Encounter for screening for other viral diseases T Spot TB 3 Months Z11.7 - Encounter for testing for latent tuberculosis infection Complete Blood Count Auto Diff 3 Months M06.9 - Rheumatoid arthritis, unspecified Comprehensive Met. 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
[2023-06-02 15:26] VITALS: BP 130/74; PULSE 96; TEMP 36.2; O2SAT 97; BMI 30.2
== END 2023-06-02 16:02 | disposition home or self-care (01) ==
PROVIDERS: PCP Internal Medicine; Visit Provider Student in an Organized Health Care Education/Training Program
DX: M06.09 Rheumatoid arthritis without rheumatoid factor, multiple sites (principal); M81.0 Age-related osteoporosis without current pathological fracture; D70.9 Neutropenia, unspecified; D86.9 Sarcoidosis, unspecified; Z79.52 Long term (current) use of systemic steroids; Z71.85 Encounter for immunization safety counseling
CPT/HCPCS: 99215

== ENCOUNTER → 2023-06-02 15:21 | Outpatient (BNVA) | payer MEDICARE, SELFPAY | PROVIDERS: PCP Internal Medicine; Visit Provider Student in an Organized Health Care Education/Training Program | DX: M06.00 Rheumatoid arthritis without rheumatoid factor, unspecified site (principal); M81.0 Age-related osteoporosis without current pathological fracture; D70.9 Neutropenia, unspecified; D86.9 Sarcoidosis, unspecified; Z79.52 Long term (current) use of systemic steroids; Z71.85 Encounter for immunization safety counseling | CPT/HCPCS: 96372; 99212; J0897 ==

== ENCOUNTER 2023-08-04 09:16 | Outpatient (REF) | payer MEDICARE, SELFPAY ==
[2023-08-04 11:50] LABS: Basophils Absolute Auto 0.1 X10*3/uL (0.0-0.2); Basophils Percent Auto 1.6 % (0-2); Eosinophils Absolute Auto 0.1 X10*3/uL (0.0-0.4); Eosinophils Percent Auto 3.5 % (0-4); Hematocrit 39.3 % (37.0-47.0); Hemoglobin 12.9 g/dl (12.0-16.0); Imm Gran Abs Auto 0.01 X10*3/uL (0.00-0.03); Imm Gran Pct Auto 0.3 % (0.0-0.4); Lymphocytes Absolute Auto 1.9 X10*3/uL (1.2-4.9); Lymphocytes Percent Auto 60.6 % (20-40); MANUAL DIFF FLAG SCAN; Mean Corpuscular HGB Conc 32.8 g/dl (31.0-35.0); Mean Corpuscular Hemoglobin 30.1 pg (27.0-33.0); Mean Corpuscular Volume 91.6 fL (80.0-98.0); Mean Platelet Volume 10.3 fL (9.4-12.3); Monocytes Absolute Auto 0.5 X10*3/uL (0.1-1.2); Neutrophils Absolute Auto 0.5 x10*3/uL (2.0-8.3); Platelet Count 248 X10*3/uL (160-400); Red Blood Count 4.29 X10*6/uL (4.20-5.50); Red Cell Distribution Width 13.6 % (11.0-16.0); SCAN SMEAR FLAG 1; White Blood Count 3.1 X10*3/uL (4.8-10.8)
[2023-08-04 12:12] LABS: Alanine Aminotransferase 19 U/L (0-31); Albumin Level 3.8 g/dL (3.5-5.0); Alkaline Phosphatase 62 U/L (39-117); Anion Gap 12 (12-20); Aspartate Amino Transferase 36 U/L (5-31); Bilirubin Total 0.4 mg/dL (0.0-1.0); Blood Urea Nitrogen 11 mg/dL (9-16); C Reactive Protein 0.68 mg/dL (< or = 0.50); Calcium 9.3 mg/dL (8.4-10.2); Carbon Dioxide 28 mmol/L (22-29); Chloride 103 mmol/L (96-108); Cholesterol 234 mg/dL (<200); Estimated Glomerular Filt Rate > 60; Glucose Fasting 89 mg/dL (60-99); Glucose Random 90 mg/dL (60-115); HDL Cholesterol 77 mg/dL (>40); LDL Cholesterol Calculated 132 mg/dL (<100); Phosphorus 3.8 mg/dL (2.7-4.5); Potassium 3.8 mmol/L (3.3-5.1); Sodium 139 mmol/L (135-145); Total Protein 8.3 g/dL (6.5-8.0); Triglycerides 126 mg/dL (<150)
[2023-08-04 12:22] LABS: HBS Num1 0.01 mIU/mL (0-7.99); HBc Num1 0.09 S/CO (0.00-0.79); HBsAGNum1 0.29 S/CO (0.00-0.99); Hepatitis A Antibody IgM 0.15 Index (0-0.79); Hepatitis B Core Antibody Nonreactive (Nonreactive); Hepatitis B Surface Antigen Negative (Negative); ~HepC Num1 0.04 S/CO (0.00-0.79); ~Hepatitis A Antibody IgM Nonreactive (Nonreactive); ~Hepatitis B Surface Antibody NONREACTIVE (Nonreactive); ~Hepatitis C Antibody Nonreactive (Nonreactive)
[2023-08-04 12:24] LABS: Vitamin D 25-OH Total 47.6 ng/mL (>30)
[2023-08-04 12:40] LABS: SLIDE REVIEW VERIFIED
[2023-08-04 12:48] LABS: Erythrocyte Sedimentation Rate 34 MM/HR (0-20)
[2023-08-06 18:08] LABS: TS Negative Control Passed; TS Panel A 0; TS Panel B 0; TS Positive Control Passed; TSpotTB Negative (Negative)
[2023-08-11 00:44] LABS: Angiotensin Converting Enzyme 9 U/L (9-67)
== END 2023-08-04 09:17 | disposition home or self-care (01) ==
LOC: HO.WFDLDS 09:16
PROVIDERS: Nurse Practitioner Family; Student in an Organized Health Care Education/Training Program; Visit Provider Internal Medicine
DX: Z11.59 Encounter for screening for other viral diseases (principal); Z11.7 Encounter for testing for latent tuberculosis infection; I10 Essential (primary) hypertension; M06.9 Rheumatoid arthritis, unspecified; D86.9 Sarcoidosis, unspecified; M81.0 Age-related osteoporosis without current pathological fracture; E78.5 Hyperlipidemia, unspecified; Z72.89 Other problems related to lifestyle
CPT/HCPCS: 36415; 80053; 80061; 82164; 82306; 84100; 85025; 85652; 86140; 86481; 86704; 86706; 86709; 86803; 87340

== ENCOUNTER 2023-08-10 08:22 | Outpatient (AMB) | payer MEDICARE, SELFPAY ==
[2023-08-10 08:32] VITALS: BP 136/78; BMI 29.8
--- NOTE | 2023-08-10 08:32 | MHC.PC.OV ---
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 Accompanied by: Self / Same As Patient Allergies Yqwkwrq-OKZ-AxW Reductase Inhibitor [[id number]-[id number] REDUCTASE INHIBITOR] Allergy (Severe, Verified 08/10/23 08:56) ANAPHYLACTIC Medication List - Last Reconciled 08/10/23 by Miguelina Flor MD abatacept (Orencia ClickJect) 125 mg subcut QWEEK albuterol sulfate 90 mcg/actuation 2 inhalations inhalation Q6H PRN 30 days alirocumab (Praluent Pen) 150 mg subcut Q2W amlodipine 5 mg PO DAILY bupropion HCl (Wellbutrin XL) 150 mg PO QAM 90 days cholecalciferol (vitamin D3) 25 mcg PO DAILY clopidogrel (Plavix) 75 mg PO DAILY denosumab (Prolia) 60 mg subcut [id number] diclofenac sodium 1% 2 grams topical QID PRN lisinopril 40 mg PO DAILY prednisone 10 mg (2 x 5 mg) PO DAILY NS tramadol 50 mg PO Q6H PRN 30 days Tobacco use date assessed: 11/27/22 Fall risk assessment: No Falls in past year Last assessed Fall Risk: 08/10/23 Dental Screening Dental Screen Date: 08/10/23 Did you have a dental visit in the last 12 months?: Yes Did you have a dental problem in the last 6 months where you did not have access to dental care?: No Was dental information given to patient?: Patient has dentist HPI HPI Comments History of Present Illness Details This is a 73-year-old female with mild recurrent major depression, rheumatoid arthritis and emphysema that comes today for her physical exam. Last mammogram done 2022 was normal. Last bone density done 2022 showing osteopenia and she is on Prolia. Last colonoscopy was 2017 showing tubular adenoma and she will call Dr. Dale for another colonoscopy. Depression stable with bupropion. On Orencia for her rheumatoid arthritis which is follow by Rheumatology. Last labs show elevated CRP and she is in pain. On longstanding inhaler for her emphysema which has been stable and is follow by pulmonology. Denies any chest pain or shortness of breath. [facility] Medical History (Updated 08/10/23 @ 09:02 by Miguelina Flor MD) Xanthelasma Pulmonary nodules Mild recurrent major depression Emphysema lung Hip bursitis Depression Essential hypertension Surgical History (Updated 08/10/23 @ 09:02 by Miguelina Flor MD) Xanthelasma of lower eyelid History of coronary angiogram Hx of left knee surgery H/O cataract removal with insertion of prosthetic lens H/O laminectomy Carpal tunnel syndrome on both sides Family History (Updated 08/10/23 @ 09:08 by Miguelina Flor MD) Mother Leukemia Father Diabetes Heart disease Brother Heart disease Other No family history of cancer Social History (Updated 08/10/23 @ 09:09 by Miguelina Flor MD) Household Members: Spouse Housing: House Are you a primary daycare provider to a significant other at home: Yes (Son) Do you presently have visiting nurse or other home services: No Alcohol intake: current Alcohol intake frequency: holidays/special occasions only Alcohol type: wine Patient Tobacco Use Status: Former Tobacco user Tobacco use type: Cigarette e-Cigarette/Vaping Use: Never Used Second Hand Smoke Exposure: No Substance Use Type: Marijuana service: No Current occupational status: employed and retired Cognitive needs: No Hearing needs: No Vision needs: Yes (reading glasses) Questionnaire Thrive Questionnaire Date Thrive assessed: 11/27/22 LUPIS-7 AMB Questionnaire LUPIS-7 Date LUPIS - 7 assessed: 11/27/22 Source: Developed by Drs. Alex Segovia, Fabiola Colón, Florentin Stevens and colleagues, with an educational josselyn from [employer]. Review of Systems Const All systems reviewed & are unremarkable except as noted in HPI and below Eyes Reports no additional complaints, Denies change in vision and Denies other visual disturbances Card Denies chest pain at rest, Denies chest pain with activity, Denies edema, Denies irregular heart rhythm, Denies claudication, Denies dyspnea, Denies dyspnea on exertion, Denies orthopnea, Denies paroxysmal nocturnal dyspnea and Denies slow heart rate Resp Denies cough, Denies dyspnea and Denies dyspnea on exertion GI Denies abdominal pain, Denies change in bowel habits, Denies excessive flatus, Denies nausea and Denies vomiting Denies urinary incontinence, Denies urinary hesitancy and Denies urinary urgency Musc Denies abnormal gait, Denies atrophy, Denies deformity and Denies limited range of motion Skin/Breast Denies bleeding lesions, Denies changing lesions and Denies rash Neuro Denies abnormal gait, Denies behavioral changes, Denies confusion and Denies lack of coordination Psych Denies behavioral changes and Denies confusion Physical exam (Primary Care) Vital Signs: Last Vital Signs BP 136/78 08/10/23 08:32 BMI result Body Mass Index 29.8 Tobacco/Smoking Status: Tobacco use Status Tobacco use date assessed 11/27/22 08/10/23 08:34 Patient Tobacco Use Status Former Tobacco user 08/10/23 09:09 Tobacco use type Cigarette 08/10/23 09:09 e-Cigarette/Vaping Use Never Used 08/10/23 09:09 Thrive Assessment: Date of Thrive Assessment Date Thrive assessed 11/27/22 08/10/23 08:34 Const General: No confusion Orientation/consciousness: patient oriented x3 and No confusion HENMT Head: Yes normal to inspection, Yes normocephalic and Yes atraumatic Ears: external ears normal Eyes General: appearance normal, both eyes and all related structures Eyelids: Yes eyelids normal Conjunctivae: conjunctivae normal Neck Neck: Yes normal visual inspection and Yes supple Resp Effort & Inspection: normal respiratory effort Auscultation: clear to auscultation bilaterally Cardio Jugular venous distension: no JVD Rate: regular rate Rhythm: regular rhythm Heart sounds: S1 normal heart sound present and S2 normal heart sound present GI Inspection: Yes normal to inspection Palpation (GI): Soft to palpation and nontender Auscultation: normal bowel sounds Skin General skin exam: no rashes or lesions noted Neuro General: patient oriented x3, no focal motor deficits and No confusion Extrem General: Yes full ROM Psych Appearance: grossly normal Assessment and Plan Assessment & Plan (1) Physical exam: Code(s): Z00.00 - Encounter for general adult medical examination without abnormal findings Plan: Repeat in a year. (2) Mild recurrent major depression: Code(s): F33.0 - Major depressive disorder, recurrent, mild Plan: Continue bupropion. (3) Rheumatoid arthritis involving multiple joints: Comment: Humira -dates unknown Enbrel 03/2020-06/2021-discontinued due to active synovitis. Methotrexate- 03/2020-01/2022- increased LFTs- resolved once stopped. Kevzara- 07/11-03/2022- low absolute neutrophils Orencia-03/2022-present Code(s): M06.9 - Rheumatoid arthritis, unspecified Plan: Continue Orencia. (4) Emphysema lung: Code(s): J43.9 - Emphysema, unspecified Qualifiers: Emphysema type: centrilobular Qualified Code(s): J43.2 - Centrilobular emphysema Plan: Continue longstanding inhaler. Use rescue inhaler as needed. Follow-up with pulmonology. Orders: Orders Lipid Panel 6 Months E78.5 - Hyperlipidemia, unspecified Comprehensive Michie. Panel Fast 6 Months Z00.00 - Encounter for general adult medical examination without abnormal findings Medications: Refilled tramadol 50 mg PO Q6H 30 days PRN 120 tabs 0RF Pain I10 - Essential (primary) hypertension Coding Level of Care Code Est Pt Prev Care >65y(61519) Diagnoses Physical exam Z00.00 Mild recurrent major depression F33.0 Rheumatoid arthritis involving multiple joints M06.9 Centrilobular emphysema J43.2 Emphysema type: centrilobular Time Spent (min) 36
== END 2023-08-10 09:21 | disposition home or self-care (01) ==
PROVIDERS: Visit Provider Internal Medicine
DX: Z00.00 Encounter for general adult medical examination without abnormal findings (principal); F33.0 Major depressive disorder, recurrent, mild; M06.9 Rheumatoid arthritis, unspecified; J43.2 Centrilobular emphysema
CPT/HCPCS: 99397

== ENCOUNTER 2023-08-18 18:37 | Inpatient (IN) | payer MEDICARE, SELFPAY ==
[2023-08-18] VITALS (16 sets, daily range): BP systolic 61–188; BP diastolic 13–90; PULSE 102–132; RESP 17–29; TEMP 36.6–40.1; O2SAT 88–100; BMI 32.2
--- NOTE | ~2023-08-18 | US_ITS ---
EXAMINATION: US ABDOMEN LIMITED CLINICAL INFORMATION: Cholecystitis. COMPARISON: CT abdomen pelvis 09/17/2023 TECHNIQUE: Real-time imaging of the right upper limited to solely the gallbladder and common bile duct FINDINGS: GALLBLADDER: The gallbladder is grossly abnormal with a markedly thickened wall measuring 1.6 cm containing fluid. No gallstones are seen. Oviedo's sign is negative COMMON BILE DUCT: Normal in caliber measuring 0.5 cm in diameter. FREE FLUID: Trace ascites is seen. Incidental note made of cirrhotic appearance of the liver US/US abdomen limited IMPRESSION: 1. Grossly abnormal gallbladder with markedly thickened wall containing fluid. No gallstones are seen and O[place]iedo's sign is negative. Trace ascites is seen. 2. Incidental note made of cirrhotic appearance of the liver.
--- NOTE | ~2023-08-18 | IR_ITS ---
CLINICAL HISTORY: Needs access for long-term hemodialysis. The patient presents to interventional radiology for placement of a tunneled central venous catheter for hemodialysis. PROCEDURES: 1. Real-time ultrasound-guided access into the right internal jugular vein after documentation of selected vessel patency, and permanent imaging storing in the patient record. 2. Placement of a 14.5 fr 27 cm tunneled, dual-lumen hemodialysis catheter. Clinician: Willie Treviño PA-C MEDICATIONS: -Versed 1 mg, Fentanyl 50 mcg, Lidocaine 1% 10 mL SQ. -Antibiotics: Ancef -For additional details, please see nursing flowsheet. COMPLICATIONS: None. ESTIMATED BLOOD LOSS: <5 ml SPECIMENS: None FLUOROSCOPY TIME: 2.2 min MODERATE SEDATION TIME: 28 min PROCEDURE NOTE: The procedure, risks, benefits, and alternatives were carefully explained to patient, and written informed consent was obtained. The patient was placed supine on the fluoroscopy table. A timeout was performed. The right neck and chest was prepped and draped in usual sterile fashion. Local anesthesia was administered to the access site with lidocaine. Under ultrasound guidance, the right internal jugular vein was accessed with a 5 Fr micropuncture set. A 0.035 in wire was advanced to the IVC to maintain access during the tunneling process. Next, subcutaneous lidocaine was administered to the chest. Using blunt dissection, a subcutaneous tunnel was created that connects from the upper chest to the venotomy site. The dialysis catheter was pulled through the tunnel. The tract in the vein was dilated and a peel-away sheath was advanced over the wire. The catheter was advanced through the sheath, which was subsequently peeled away. The catheter was tested, flushed, and sutured to the skin with its tip in the high right atrium. A permanent fluoroscopic image of the chest was saved to PACS. The catheter ports were packed with heparin per routine protocol. The left neck temporary dialysis catheter was then removed entirely. A dry dressing was applied to the left neck venotomy site. The patient was stable after the procedure and was transferred to the post anesthesia care unit. This procedure was performed under moderate sedation with a dedicated nurse and continuous monitoring of vital signs. FINDINGS: 1. Patent right internal jugular vein. 2. Placement of a tunneled, dual-lumen hemodialysis catheter as above. 3. Catheter flushes and aspirates very well with a 10 mL syringe. No pneumothorax. IR/IR cvc insert central tunnel IMPRESSION: Placement of a tunneled hemodialysis catheter in the right internal jugular vein. PLAN: -The catheter may be used immediately. This procedure was performed by Willie Treviño PA-C, and directly supervised by Dr. Correa.
--- NOTE | ~2023-08-18 | XR_ITS ---
EXAMINATION: XR CHEST 10:44 AM CLINICAL INFORMATION: Hypoxia COMPARISON: 08/18/2023 at 11:29 PM TECHNIQUE: Frontal view of the chest was obtained. FINDINGS: A right internal jugular central line extends to the cavoatrial junction. There are low lung findings with crowding of basilar bronchovascular markings. Atelectasis is suspected at both lung bases. Pulmonary vasculature is more prominent than on the prior study suggesting congestion and redistribution. XR/XR chest 1V IMPRESSION: 1. Pulmonary vascular congestion and redistribution, increased since 08/18/2023. 2. Question left base atelectasis or pneumonia.
--- NOTE | ~2023-08-18 | CT_ITS ---
EXAMINATION: CT HEAD WITHOUT CONTRAST CLINICAL INFORMATION: Hearing loss. COMPARISON: CT of the head done on 09/04/2023. TECHNIQUE: Contiguous axial imaging was performed from the skull base to vertex without intravenous administration of contrast. This CT examination was performed using dose optimization techniques as appropriate, variously including the following: *Automated exposure control *Adjustment of mA and/or kV according to patient size (this includes techniques or standardized protocols for targeted exams where dose is matched to indication/reason for exam; i.e. extremities or head) *Use of iterative reconstruction technique DLP: 738 mGy-cm FINDINGS: There is no evidence of acute intracranial hemorrhage or edematous territorial infarction. No abnormal mass effect or midline shift is seen. [place] to white matter differentiation is well preserved. No extra-axial fluid collections are identified. No significant volume loss. No hydrocephalus. There is no abnormal attenuation within the brain parenchyma. The osseous structures and soft tissues are normal. The mastoid air cells and visualized portions of the paranasal sinuses are well aerated except for minimal mucoperiosteal thickening at floor of the right maxillary sinus, unchanged.. CT/CT head/brain wo IV con IMPRESSION: No acute intracranial pathology. No significant change since CT of the head done yesterday.
--- NOTE | ~2023-08-18 | MR_ITS ---
MRI OF THE BRAIN WITHOUT IV CONTRAST INDICATION: Acute hearing loss. COMPARISON: Same day CT head. TECHNIQUE: Multiplanar multisequence MR imaging of the brain was obtained without IV contrast. FINDINGS: No acute intracranial hemorrhage or infarct. Scattered and confluent periventricular white matter T2/FLAIR hyperintensities, nonspecific however commonly seen with small vessel ischemic disease. Diffuse prominence of the sulci with associated ex vacuo mild dilation of the ventricles compatible with global cerebral atrophy. No midline shift or hydrocephalus. No acute extra-axial fluid collections. The osseous structures are unremarkable. The pituitary gland, pineal gland and remaining midline structures are unremarkable. Sequela bilateral lens replacement. Otherwise, no orbital pathology. Mucosal thickening of the paranasal sinuses. Bilateral mastoid effusions. MR/MR head/brain wo con IMPRESSION: -No acute intracranial abnormalities. -Global cerebral atrophy and chronic microangiopathy. -Bilateral mastoid effusions.
--- NOTE | ~2023-08-18 | IR_ITS ---
CLINICAL HISTORY: Nonfunctioning dialysis access. The patient presents to interventional radiology for placement of a non-tunneled central venous catheter for hemodialysis. PROCEDURES: 1. Real-time ultrasound-guided access into the left internal jugular vein after documentation of selected vessel patency, and permanent imaging storing in the patient record. 2. Placement of a 14.5 fr 23 cm non-tunneled, dual-lumen hemodialysis catheter. Clinician: Willie Treviño PA-C MEDICATIONS: -Lidocaine 1% 10 mL SQ. -For additional details, please see nursing flowsheet. COMPLICATIONS: None. ESTIMATED BLOOD LOSS: <5 ml SPECIMENS: None FLUOROSCOPY TIME: 1.7 min PROCEDURE NOTE: The procedure, risks, benefits, and alternatives were carefully explained to patient's , and written informed consent was obtained. The patient was placed supine on the fluoroscopy table. A timeout was performed. The left neck and chest was prepped and draped in usual sterile fashion. Local anesthesia was administered to the access site with lidocaine. Under ultrasound guidance, the left internal jugular vein was accessed with a 5 Fr micropuncture set. A 0.035 in wire was advanced to the IVC to maintain access during the tunneling process. The tract was serially dilated. Over the wire, a 23 cm 14.5 fr permacath was advanced with the tip at the cavoatrial junction. The catheter was tested, flushed, and sutured to the skin with its tip in the high right atrium. A permanent fluoroscopic image of the chest was saved to PACS. The patient was stable after the procedure and was transferred back to the intensive care unit. FINDINGS: 1. Patent left internal jugular vein. 2. Placement of a non-tunneled, dual-lumen hemodialysis catheter as above. 3. Catheter flushes and aspirates very well with a 10 mL syringe. No pneumothorax. IR/IR us guide venous access IMPRESSION: Placement of a non-tunneled hemodialysis catheter in the left internal jugular vein. PLAN: -The catheter may be used immediately. This procedure was performed by Willie Treviño PA-C, and directly supervised by Dr. Martines.
--- NOTE | ~2023-08-18 | XR_ITS ---
EXAMINATION: XR CHEST CLINICAL INFORMATION: ET tube and NG tube placement COMPARISON: 08/20/2023 TECHNIQUE: Frontal view of the chest was obtained. FINDINGS: Endotracheal tube tip lies approximately 4 cm above the virgilio. Enteric tube courses into the stomach. Right IJ central line tip lies in the region of the distal SVC. Lung volumes are symmetric. Redemonstrated bibasilar opacities suspicious for combination of small pleural effusions and underlying atelectasis versus consolidation. Central vasculature remains mildly prominent. The cardiomediastinal silhouette is stable. Calcification is present at the aortic arch. No acute osseous findings are seen. XR/XR chest 1V IMPRESSION: Endotracheal tube tip 4 cm above the virgilio. Enteric tube courses into the stomach. Redemonstrated bibasilar opacities suspicious for combination of small pleural effusions and underlying atelectasis versus consolidation. Component of central vascular suggestion is suspected.
--- NOTE | ~2023-08-18 | CT_ITS ---
EXAMINATION CT CHEST, ABDOMEN AND PELVIS WITH CONTRAST CLINICAL INFORMATION: Hypoxia. Altered mental status. COMPARISON: 08/18/2023 and 04/23/2021 TECHNIQUE: Multidetector volumetric CT imaging of the chest, abdomen and pelvis was obtained after the administration of 100 mL of intravenous Omnipaque 300 without immediate adverse reactions. Coronal and sagittal reformats were reviewed. This CT examination was performed using dose optimization techniques as appropriate, variously including the following: *Automated exposure control *Adjustment of mA and/or kV according to patient size (this includes techniques or standardized protocols for targeted exams where dose is matched to indication/reason for exam; i.e. extremities or head) *Use of iterative reconstruction technique DLP: 1273 mGy-cm. FINDINGS: CHEST LUNGS/PLEURA: Endotracheal tube terminates in the mid thoracic trachea. Right lower lobe collapse due to mucous plugging within the right lower lobe bronchus and segmental bronchioles. There is also mucus within proximal right middle lobe bronchus which shows subsegmental atelectasis. Mucus plugging also present in the left lower lobe bronchus without collapse of the left lower lobe. Tkmp-um-[id number] emphysema. There are couple areas of tree-in-bud nodular opacity redemonstrated lateral left upper lobe, with the largest nodular component measuring up to 5 mm. There is no pleural effusion. No pleural mass or thickening. MEDIASTINUM/MADISON: Left internal jugular central venous introducer terminates in mid SVC. Normal heart size. No pericardial effusion. Great vessels normal caliber. Triple vessel coronary calcifications present.. No mediastinal or hilar lymphadenopathy. CHEST WALL/AXILLA: Unremarkable. ABDOMEN/PELVIS HEPATOBILIARY: Liver normal in size, contour and morphology. No suspicious lesions. No intra or extrahepatic biliary dilation. Gallbladder unremarkable. PANCREAS: Unremarkable. SPLEEN: There is a stable large hypodense presumptive cyst with coarse peripheral calcifications occupying the majority of the spleen, possibly related to remote trauma. ADRENAL GLANDS: Unremarkable. KIDNEYS, URETERS AND BLADDER: Stable mild fullness of the right renal collecting system. No she hydronephrosis. No urinary calculi. Ureters normal in course and caliber. Bladder grossly unremarkable.. GASTROINTESTINAL TRACT: No bowel related abnormalities. PELVIC VISCERA: Uterus and adnexa unremarkable. LYMPH NODES: No lymphadenopathy. PERITONEUM/BODY WALL: Unremarkable. VASCULAR STRUCTURES: Aorta is atherosclerotic but normal caliber. OSSEOUS STRUCTURES No acute or suspicious osseous abnormalities. CT/CT abdomen pelvis wo IV con IMPRESSION: * Mucous plugging within the bilateral lower lobe bronchi and proximal right middle lobe bronchus, associated with complete collapse of the right lower lobe. Recommend pulmonary toilet. * Unchanged tree-in-bud nodular opacities in the left upper lobe favoring areas of infectious bronchiolitis. * Wmto-mf-pljovwxk emphysema. * No acute findings in the abdomen or pelvis.
--- NOTE | ~2023-08-18 | CT_ITS ---
PROCEDURE: CT GUIDED BIOPSY, KIDNEY CLINICAL INFORMATION: Acute kidney injury COMPARISON: None available. TECHNIQUE/FINDINGS: This CT examination was performed using dose optimization techniques as appropriate, variously including the following: *Automated exposure control *Adjustment of mA and/or kV according to patient size (this includes techniques or standardized protocols for targeted exams where dose is matched to indication/reason for exam; i.e. extremities or head) *Use of iterative reconstruction technique DLP: 5 mGy-cm Medications for conscious sedation: The patient received intravenous conscious sedation under my direct supervision. A registered nurse monitored the patient and the patient's vital signs throughout the procedure. The total sedation was 30 minutes. A total of 1 mg of Versed and 50 mcg fentanyl was given for good effect. The patient was laid prone on the CT gantry. Limited CT of the abdomen was performed. A site on the right lower back was selected, marked and sterilely prepped and draped. Following administration of 1% lidocaine for local anesthesia, the right lower pole renal cortex was accessed with a 17-gauge coaxial needle. 4 18-gauge biopsy specimens were obtained. The coaxial needle was withdrawn while injecting the Gelfoam slurry. Post biopsy images do not demonstrate any evidence of leading or other complication. CT/CT biopsy renal RT IMPRESSION: CT-guided biopsy of right lower pole renal cortex
--- NOTE | ~2023-08-18 | CT_ITS ---
EXAMINATION: CT HEAD WITHOUT CONTRAST CLINICAL INFORMATION: Altered mental status. COMPARISON: None available. TECHNIQUE: Contiguous axial imaging was performed from the skull base to vertex without intravenous administration of contrast. This CT examination was performed using dose optimization techniques as appropriate, variously including the following: *Automated exposure control *Adjustment of mA and/or kV according to patient size (this includes techniques or standardized protocols for targeted exams where dose is matched to indication/reason for exam; i.e. extremities or head) *Use of iterative reconstruction technique DLP: 784 mGy-cm FINDINGS: The lateral, third and fourth ventricles are normally outlined. The cortical sulci and basal cisterns are normally outlined as well. There is no acute territorial defect, hemorrhage or midline shift. The extra-axial spaces are unremarkable. Calvarium: Intact. Maxillofacial sinuses and mastoids: Clear as visualized. CT/CT head/brain wo IV con IMPRESSION: No acute intracranial pathology.
--- NOTE | ~2023-08-18 | CT_ITS ---
EXAMINATION: CT head/brain wo IV con CLINICAL INFORMATION: Reason for Exam ams COMPARISON: CT head without contrast 08/18/2023 TECHNIQUE: Contiguous axial imaging was performed from the skull base to vertex without intravenous contrast. Sagittal and coronal reformatted images were obtained. This CT examination was performed using dose optimization techniques as appropriate, variously including the following: * Automated exposure control * Adjustment of mA and/or kV according to patient size (this includes techniques or standardized protocols for targeted exams where dose is matched to indication/reason for exam; i.e. extremities or head) Use of iterative reconstruction technique DLP: 719.45 mGy-cm FINDINGS: No acute osseous or soft tissue abnormality. Partially visualized nasoenteric tube. Trace scattered paranasal sinus mucosal thickening. There is no evidence of acute intracranial hemorrhage or territorial infarction. No abnormal mass effect or midline shift is seen. Jimenez to white matter differentiation is well preserved. No extra-axial fluid collections are identified. No hydrocephalus. No significant volume loss. There is no abnormal attenuation within the brain parenchyma. CT/CT head/brain wo IV con IMPRESSION: No acute intracranial abnormality including hemorrhage, mass effect, hydrocephalus, or acute territorial edematous infarction.
--- NOTE | ~2023-08-18 | XR_ITS ---
EXAMINATION: XR CHEST CLINICAL INFORMATION: Status post intubation, check tube placement COMPARISON: Chest 08/31/2023 TECHNIQUE: Frontal view of the chest was obtained. FINDINGS: The lungs are well-expanded with minimal atelectatic changes in both lung bases. There is mild blunting of right CP angle question pleural thickening or effusion.. Heart size and pulmonary vascularity is normal. There is a new endotracheal tube with its tip approximately 4 cm above the virgilio. A left jugular central catheter with its tip in the mid SVC. No gross bony abnormality seen. XR/XR chest 1V IMPRESSION: 1. New endotracheal tube and left jugular central venous catheter are in satisfactory position. 2. Minimal atelectasis in both lung bases.. 3. Mild blunting of right CP angle question pleural effusion versus thickening.
--- NOTE | ~2023-08-18 | CT_ITS ---
EXAMINATION: CT ANGIOGRAM OF THE CHEST WITH AND WITHOUT CONTRAST (CT PULMONARY ANGIOGRAM FOR PE) CLINICAL INFORMATION: Reason for Exam r/o PE and dissection COMPARISON: CT chest 05/08/2023 TECHNIQUE: Prior to contrast administration, noncontrast localization images were obtained. Subsequently, multidetector volumetric imaging was performed from the thoracic inlet to below the diaphragms following the administration of 80 mL Omnipaque 350 intravenous contrast. No contrast reaction reported Sagittal, coronal, and MIP oblique sagittal reformatted images were obtained on the CT workstation, uploaded to PACS, and reviewed. This CT examination was performed using dose optimization techniques as appropriate, variously including the following: *Automated exposure control *Adjustment of mA and/or kV according to patient size (this includes techniques or standardized protocols for targeted exams where dose is matched to indication/reason for exam; i.e. extremities or head) *Use of iterative reconstruction technique Total exam dose-length product 744 mGy-cm FINDINGS: QUALITY OF STUDY/CONTRAST BOLUS: Satisfactory. PULMONARY ARTERIES: No pulmonary emboli. THORACIC AORTA: Calcific plaque is present in the aorta. Opacification is is not optimal however I do not believe there is an aortic dissection present. LUNG: Marked emphysematous changes are present throughout the lungs. Some subpleural reticular changes are seen most prominent at the lung bases. Some pulmonary nodules are present and are unchanged (for example a 6 mm lingular nodule (9:199 compare prior 11:106). There is a new cluster of tree-in-bud opacities seen in the left upper lobe laterally (9:172-192). PLEURA: No pleural effusion or pneumothorax. MEDIASTINUM: Mild cardiac enlargement. No pericardial effusion. No hilar or mediastinal lymphadenopathy. There is slight septal bowing suggestive right heart strain. CORONARY ARTERY CALCIFICATION: Moderate CHEST WALL/AXILLA: No axillary or internal mammary lymphadenopathy. OSSEOUS STRUCTURES: Degenerative changes are present throughout the spine. UPPER ABDOMEN: Some chronic calcification is seen in the spleen that has been present in the past. No reflux of contrast into the hepatic veins to suggest elevated right heart pressures. CT/CT angio chest PE protocol IMPRESSION: 1. No evidence of pulmonary emboli. 2. No evidence of aortic dissection. 3. New cluster of tree-in-bud opacities in the left upper lobe laterally consistent with airway/inflammatory disease. 4. Other incidental findings as described above. VTE: negative. According to the UPDATED 2017 Fleischner Society recommendations, the advised follow-up imaging for a single 6-8 mm solid nodule is follow-up CT at 6 to 12 months. In high-risk patients, subsequent CT follow-up at 18 to 24 months is recommended. In low-risk patients, subsequent CT follow-up at 18 to 24 months is optional. .
--- NOTE | ~2023-08-18 | FL_ITS ---
EXAMINATION: Modified Barium Swallows CLINICAL INFORMATION: Concern for aspiration COMPARISON: None TECHNIQUE: Modified barium swallow was performed under lateral fluoroscopy with patient in standing position. Different consistency of barium was administered by the speech therapist. FINDINGS: Subglottic aspiration was seen with thin liquids. Laryngeal penetration was seen with nectar thick liquid. FLUOROSCOPY TIME: 2 minutes 8 seconds Number of Spot Images: 1 DOSE AREA PRODUCT: 1309 uGy-m2 (microgray-meter squared) FL/FL barium swallow modified IMPRESSION: Subglottic aspiration with thin liquids. Laryngeal penetration was seen with nectar thick liquids Refer to the full speech therapy report for further clarification This procedure was performed by Willie Treviño PA-C, and supervised by Dr. Jara
--- NOTE | ~2023-08-18 | CT_ITS ---
EXAMINATION: CT ABDOMEN AND PELVIS WITH CONTRAST CLINICAL INFORMATION: Altered mental status with abdominal pain COMPARISON: Renal ultrasound 05/09/2020 TECHNIQUE: Multidetector volumetric images were obtained from the superior aspect of the liver through the pubic symphysis following administration 85 mL of Omnipaque 350 intravenous contrast. Sagittal and coronal reformatted images were obtained on the technologist's workstation. Oral contrast: No This CT examination was performed using dose optimization techniques as appropriate, variously including the following: *Automated exposure control *Adjustment of mA and/or kV according to patient size (this includes techniques or standardized protocols for targeted exams where dose is matched to indication/reason for exam; i.e. extremities or head) *Use of iterative reconstruction technique DLP: 744 mGy-cm FINDINGS: LUNG BASES: The visualized lung bases are unremarkable. LIVER, GALLBLADDER, AND BILIARY TREE: The liver is normal in size, shape, and attenuation. Periportal edema is noted. No focal hepatic lesion or biliary ductal dilatation is present. The gallbladder is unremarkable with no evidence of radiopaque gallstones, gallbladder wall thickening, or obvious pericholecystic inflammatory changes. PANCREAS: Inflammatory changes are present around the pancreatic tail with peripancreatic fluid extending into the anterior pararenal space on the left. The pancreas enhances normally without evidence of infarction or necrosis. No pancreatic ductal dilatation is seen. No pancreatic calculi. SPLEEN: Subcortical splenic calcification is seen which is chronic and possibly from an old injury. ADRENAL GLANDS: Unremarkable. KIDNEYS AND URETERS: The kidneys are normal in size, shape, and attenuation. No hydronephrosis, hydroureter, or calculi seen. No perinephric stranding. BLADDER: [place] catheter is present in the bladder which is empty GASTROINTESTINAL TRACT: The small and large bowel are unremarkable. The appendix is not seen but there is no evidence of appendicitis evidence of appendicitis. ABDOMINAL WALL: No significant hernia is appreciated. LYMPH NODES: No retroperitoneal lymphadenopathy VASCULAR: Calcific atherosclerotic changes are present in the aorta and iliofemoral vessels. There is no evidence of an abdominal aortic aneurysm. A stent is present in the left common femoral artery extending into the SFA. PELVIC VISCERA: The uterus and adnexa are unremarkable. OSSEOUS STRUCTURES: Degenerative changes are present in the spine most marked at L5-S1 with grade 1 anterolisthesis L4 upon L5. No bony destructive lesions. CT/CT abdomen pelvis w IV con IMPRESSION: 1. Acute uncomplicated pancreatitis involving the pancreatic tail. 2. Other incidental findings as described above including periportal edema, left femoral artery stent and degenerative changes in the spine. Fleischner guidelines were followed.
--- NOTE | ~2023-08-18 | IR_ITS ---
CLINICAL HISTORY: Nonfunctioning dialysis access. The patient presents to interventional radiology for placement of a non-tunneled central venous catheter for hemodialysis. PROCEDURES: 1. Real-time ultrasound-guided access into the left internal jugular vein after documentation of selected vessel patency, and permanent imaging storing in the patient record. 2. Placement of a 14.5 fr 23 cm non-tunneled, dual-lumen hemodialysis catheter. Clinician: Willie Treviño PA-C MEDICATIONS: -Lidocaine 1% 10 mL SQ. -For additional details, please see nursing flowsheet. COMPLICATIONS: None. ESTIMATED BLOOD LOSS: <5 ml SPECIMENS: None FLUOROSCOPY TIME: 1.7 min PROCEDURE NOTE: The procedure, risks, benefits, and alternatives were carefully explained to patient's , and written informed consent was obtained. The patient was placed supine on the fluoroscopy table. A timeout was performed. The left neck and chest was prepped and draped in usual sterile fashion. Local anesthesia was administered to the access site with lidocaine. Under ultrasound guidance, the left internal jugular vein was accessed with a 5 Fr micropuncture set. A 0.035 in wire was advanced to the IVC to maintain access during the tunneling process. The tract was serially dilated. Over the wire, a 23 cm 14.5 fr permacath was advanced with the tip at the cavoatrial junction. The catheter was tested, flushed, and sutured to the skin with its tip in the high right atrium. A permanent fluoroscopic image of the chest was saved to PACS. The patient was stable after the procedure and was transferred back to the intensive care unit. FINDINGS: 1. Patent left internal jugular vein. 2. Placement of a non-tunneled, dual-lumen hemodialysis catheter as above. 3. Catheter flushes and aspirates very well with a 10 mL syringe. No pneumothorax. IR/IR cvc replace non tunneled IMPRESSION: Placement of a non-tunneled hemodialysis catheter in the left internal jugular vein. PLAN: -The catheter may be used immediately. This procedure was performed by Willie Treviño PA-C, and directly supervised by Dr. Martines.
--- NOTE | ~2023-08-18 | XR_ITS ---
EXAMINATION: XR CHEST CLINICAL INFORMATION: Central line placement COMPARISON: Chest radiograph earlier today at 7:[address] angiogram chest earlier today. TECHNIQUE: Frontal view of the chest was obtained. FINDINGS: Since the prior study, a right IJ line has been placed with its tip in the mid to distal SVC. No pneumothorax is present. Heart size within normal limits. No evidence of CHF. The changes of emphysema are better demonstrated on the CT scan earlier today. Bibasilar opacities are seen suggesting atelectasis. No pleural effusions. XR/XR chest 1V IMPRESSION: Right IJ line with tip in mid to distal SVC. No pneumothorax is seen.
--- NOTE | ~2023-08-18 | XR_ITS ---
EXAMINATION: XR CHEST CLINICAL INFORMATION: Catheter placement COMPARISON: 08/21/2023 earlier TECHNIQUE: Frontal view of the chest was obtained. FINDINGS: Catheter entering from right overlying the superior vena cava. There is no pneumothorax. Not changed in position from previous. Catheter tip overlying the left neck. Terminates overlying the posterior left second rib. This is at the level the thoracic inlet. There is no pneumothorax. ET tube approximately 4.3 cm above the virgilio. Continued opacities right greater than left. Left base and right mid to lower lung. Suspect effusion on the right. Probable element of vascular congestion. XR/XR chest 1V IMPRESSION: Tubes and catheters are as described. There is a new catheter overlying the left lower neck terminating overlying the posterior second rib at the level of the thoracic inlet. The ET tube is 4.3 cm above the virgilio. Continued bilateral opacities This critical result was discussed with Shayy turner at 2:15 PM on 08/21/2023 and it was ascertained that the content and urgency of the report was understood at the time of direct communication.
--- NOTE | ~2023-08-18 | XR_ITS ---
EXAMINATION: XR CHEST CLINICAL INFORMATION: Respiratory distress COMPARISON: Chest radiograph from 08/21/2023 TECHNIQUE: Frontal view of the chest was obtained. FINDINGS: Interval placement of left-sided nontunneled dialysis catheter with its distal tip terminating in mid to distal SVC. Slight elevation the right hemidiaphragm. Left basilar atelectasis. Slight accentuation of pulmonary vasculature. No pneumothorax. Trachea is midline. Cardiac mediastinal silhouette is stable. No large pleural effusion. Osseous structures are intact. Soft tissues are unremarkable. XR/XR chest 1V IMPRESSION: 1. Interval placement of left-sided nontunneled dialysis catheter with its distal tip terminating in mid to distal SVC. 2. Left basilar atelectasis. 3. Slight accentuation of pulmonary vasculature.
--- NOTE | ~2023-08-18 | MR_ITS ---
EXAMINATION: MR BRAIN WITHOUT AND WITH CONTRAST CLINICAL INFORMATION: Hearing loss. Question sarcoid? Pneumococcal disease? COMPARISON: Brain MRI 09/06/2023. TECHNIQUE: Multiplanar, multisequence imaging of the brain was performed before and after the intravenous administration of 9 mL of Gadavist. FINDINGS: The inner ear structures including the cochlea, vestibules, and semicircular canals exhibit preserved CSF signal intensity with no pathologic enhancement. The vestibular aqueducts are not enlarged. Cranial nerves VII and VIII complexes are normal in morphology. No enhancing cerebellopontine angle/retrocochlear lesion. There is no intracranial mass or abnormal intracranial enhancement. There is no acute infarction. There is no intracranial hemorrhage or extra axial collection. The ventricles, sulci, and basilar cisterns are normal in size and configuration. A few nonspecific foci of susceptibility signal are seen within the left cerebral hemisphere. The flow voids of the major intracranial arteries appear intact. There is low signal in the marrow likely related to underlying renal disease. MR/MR head/brain wo/w con IMPRESSION: 1. No vestibular schwannoma or retrocochlear lesion. 2. No mass lesion, acute infarction, or abnormal intracranial enhancement.
--- NOTE | ~2023-08-18 | XR_ITS ---
EXAMINATION: XR CHEST CLINICAL INFORMATION: Question pneumonia. COMPARISON: CT chest dated 05/08/2023; chest radiographs dated 11/15/2015. TECHNIQUE: Frontal view of the chest was obtained. FINDINGS: The heart, great vessels, pulmonary vasculature and mediastinum are stable. Lung volumes are somewhat low, and there is new mild to moderate elevation the right hemidiaphragm. No infiltrate, effusion or pneumothorax is seen. There is no acute osseous abnormality. XR/XR chest 1V IMPRESSION: 1. No focal infiltrate or congestive heart clear is seen. 2. Lung volumes are low. Mild to moderate elevation of the right hemidiaphragm is newly appreciated.
--- NOTE | 2023-08-18 19:29 | ECG_ITS ---
Test Reason : ALTERED MENTAL Blood Pressure : / mmHG Vent. Rate : 133 BPM Atrial Rate : 133 BPM P-R Int : 154 ms QRS Dur : 080 ms QT Int : 284 ms P-R-T Axes : 065 084 076 degrees QTc Int : 422 ms Sinus tachycardia Intra-ventricular conduction delay Possible Left atrial enlargement Nonspecific ST abnormality Abnormal ECG When compared with ECG of 01-AUG-2015 09:59, Vent. rate has increased BY 52 BPM Questionable change in QRS duration Referred By: Ally Fajardo Electronically Signed By:NGOC MCCLELLAN MD
--- NOTE | 2023-08-18 19:54 | ED_ITS ---
HPI - General Adult General Chief complaint: Altered Mental Status Stated complaint: AMS SINCE 6 AM. MORE CONF THAN USUAL,N/V Time Seen by Provider: 08/18/23 19:16 Source: patient and family Mode of arrival: EMS Limitations: altered mental status History of Present Illness HPI narrative: Patient comes to the emergency room via ambulance from home. At baseline, patient is alert and oriented x3, very active. However, today, the patient has been a bit confused, speaking random words, vomiting, no diarrhea. Patient is on Plavix, states that she has not fallen. Patient states that she has had trouble walking today due to severe weakness. Patient states for the last couple of days she has noticed a bit of coughing, no chest pain or shortness of breath. Related Data Home Medications Medication Instructions Recorded Confirmed clopidogrel 75 mg tablet (Plavix) 75 mg PO DAILY 06/28/20 08/10/23 alirocumab 150 mg/mL subcutaneous 150 mg subcut Q2W 06/17/22 08/10/23 pen injector (Praluent Pen) cholecalciferol (vitamin D3) 25 25 mcg PO DAILY 05/26/23 08/10/23 mcg (1,000 unit) capsule Previous Rx's Medication Instructions Recorded denosumab 60 mg/mL subcutaneous 60 mg subcut [id number] #1 mL 01/07/23 syringe (Prolia) amlodipine 5 mg tablet 5 mg PO DAILY #90 tabs 03/04/23 abatacept 125 mg/mL subcutaneous 125 mg subcut QWEEK #4 mL 05/12/23 auto-injector (Orencia ClickJect) lisinopril 40 mg tablet 40 mg PO DAILY #90 tabs 05/31/23 diclofenac sodium 1 % topical gel 2 g topical QID PRN for pain #100 06/03/23 grams albuterol sulfate 90 mcg/actuation 2 inh inhalation Q6H PRN shortness 06/05/23 aerosol inhaler of breath or wheezing 30 days #18 grams bupropion HCl 150 mg 24 hr tablet, 150 mg PO QAM 90 days #90 tabs 08/01/23 extended release (Wellbutrin XL) tramadol 50 mg tablet 50 mg PO Q6H PRN Pain 30 days #120 08/10/23 tabs prednisone 5 mg tablet 10 mg (2 x 5 mg) PO DAILY #60 tabs 08/11/23 Allergies Allergy/AdvReac Type Severity Reaction Status Date / Time [id number]-NLT-[id number] Reductase Allergy Severe ANAPHYLACTI Verified 08/18/23 18:47 Inhibitor C [HVNKLOW-OMN-AUR REDUCTASE INHIBITOR] Review of Systems 2 Review of Systems: Constitutional : No Weight loss, No Fever, No Chills, No Night Sweats, No Fatigue, No Malaise ENT/Mouth : No Hearing loss, No Ear Pain, No Nasal Congestion, No Sinus Pain, No Hoarseness, No sore throat, No Rhinorrhea, No Swallowing Difficulty Eyes: No Eye Pain, No Swelling, No Redness, No Foreign Body, No Discharge, No Vision Changes Cardiovascular : No Chest Pain, No SOB, No Dyspnea on Exertion, No Orthopnea, No Edema, No Palpitations Respiratory : No Cough, No Sputum, No Wheezing, No Smoke Exposure, No Dyspnea Gastrointestinal : Complaining of nausea and vomiting No Diarrhea, No Constipation, No abdominal Pain, No Hematochezia, No Melena Genitourinary : no irregular bleeding, No Dysuria, No Urinary Frequency, No Hematuria, No Urinary Incontinence, No Urgency, No Flank Pain, No Urinary Flow Changes, No Hesitancy Musculoskeletal : complaining of lower back pain No joint pain, No Myalgias, No Joint Swelling Skin : No Skin Lesions, No rash Neuro : No Weakness, No Numbness, No Paresthesias, No Loss of Consciousness, No Dizziness, No Headache Psych : No Anxiety/Panic, No Depression, No SI/HI/AH/VH, No Social Issues, Heme/Lymph: No Bruising, No Bleeding,No Lymphadenopathy Endocrine : No Polyuria, No Polydipsia, No Temperature Intolerance [facility] Past Medical History Medical History Xanthelasma Pulmonary nodules Mild recurrent major depression Emphysema lung Hip bursitis Depression Essential hypertension Surgical History Xanthelasma of lower eyelid History of coronary angiogram Hx of left knee surgery H/O cataract removal with insertion of prosthetic lens H/O laminectomy Carpal tunnel syndrome on both sides Family History Family History (Updated 08/10/23 @ 09:08 by Miguelina Flor MD) Mother Leukemia Father Diabetes Heart disease Brother Heart disease Other No family history of cancer Social History Social History (Updated 08/10/23 @ 09:09 by Miguelina Flor MD) Household Members: Spouse Housing: House Are you a primary healthcare receptionist to a significant other at home: Yes (Son) Do you presently have visiting nurse or other home services: No Alcohol intake: current Alcohol intake frequency: holidays/special occasions only Alcohol type: wine Patient Tobacco Use Status: Former Tobacco user Tobacco use type: Cigarette e-Cigarette/Vaping Use: Never Used Second Hand Smoke Exposure: No Substance Use Type: Marijuana Advance Directives: No Advance Directives Information Provided: No service: No Current occupational status: employed and retired Cognitive needs: No Hearing needs: No Vision needs: Yes (reading glasses) Physical Exam ED Vital Signs: Vital Signs - 24 hr 08/18/23 18:39 08/18/23 20:35 08/18/23 20:38 Temperature 97.8 F 104 F H 104.2 F H Pulse Rate 112 H 132 H 125 H Respiratory Rate 20 25 H 26 H Blood Pressure 136/51 L Pulse Oximetry 92 88 L 93 Oxygen Delivery Method Room Air Room Air Nasal Cannula Oxygen Flow Rate 2 08/18/23 21:00 08/18/23 21:12 08/18/23 22:04 Temperature 102.7 F H 104.1 F H 103 F H Pulse Rate 127 H 122 H 111 H Respiratory Rate 22 H 20 22 H Blood Pressure 98/24 L 89/45 L 81/38 L Pulse Oximetry 93 94 93 Oxygen Delivery Method Nasal Cannula Nasal Cannula Nasal Cannula Oxygen Flow Rate 2 2 2 08/18/23 22:51 08/18/23 22:52 08/18/23 22:55 Temperature 100.9 F H Pulse Rate 113 H 114 H Respiratory Rate 29 H Blood Pressure 66/39 L 66/36 L 66/39 L Pulse Oximetry Oxygen Delivery Method Oxygen Flow Rate 08/18/23 22:55 08/18/23 22:58 08/18/23 23:01 Temperature 100 F 100 F Pulse Rate 114 H 120 H 116 H Respiratory Rate 17 Blood Pressure 66/39 L 77/38 L 77/38 L Pulse Oximetry Oxygen Delivery Method Oxygen Flow Rate 08/18/23 23:08 08/18/23 23:14 Temperature Pulse Rate 117 H 109 H Respiratory Rate Blood Pressure 96/13 L 61/39 L Pulse Oximetry Oxygen Delivery Method Oxygen Flow Rate BMI result Body Mass Index 32.2 Const Other: Appearance: Alert. Oriented X3. slow to answer, since a bit confused, No acute distress. Eyes: Pupils equal, round and reactive to light. ENT: Pharynx normal. viable mucosa Neck: Normal inspection. Neck supple. No lymph nodes noted. No crepitus CVS: regular rhythm, tachycardic approximately 120-130, Pulses normal. Normal S1 and S2 Respiratory: No respiratory distress. Breath sounds normal. No Wheezing. No rales Abdomen: Soft and nontender. No rigidity. No distention. Skin: very warm to touch Normal skin color. Normal skin turgor. Extremities: No lower extremity edema. No Lacerations. No Rash Neuro: Oriented X 3. No motor deficit. seems slow to answer, No sensory deficit. Moving all extremities. No slurred speech. CN 2 through 12 grossly intact Psych: calm, cooperative Course Course Course Narrative: - patient's initial temperature recorded as 97.8 oral temperature. On physical exam, patient seems to be much warmer than that. Rectal exam shows a temperature of 104.9 degrees. - Patient being giving IV fluids based on ideal weight of 55 kg, patient is obese. At this time, there is no clear source of infection, may be A viral infection. - All of the patient's labs are pending Medications Administered Generic Name Dose Route Start Last Admin Trade Name Freq PRN Reason Stop Dose Admin Norepinephrine Bitartrate 8 mg in 250 mls @ 0 mls/hr 08/18/23 23:00 08/18/23 23:31 Levophed IV 0.5 mcg/kg/min .Q0M SANDRA 84.84 mls/hr Titration Protocol Per Protocol Discontinued Medications Generic Name Dose Route Start Last Admin Trade Name Freq PRN Reason Stop Dose Admin Acetaminophen 975 mg 08/18/23 19:38 08/18/23 20:13 Acetaminophen 325 Mg Tablet PO 08/18/23 19:39 975 mg ONCE ONE Administration Sodium Chloride 1,000 mls @ 999 mls/hr 08/18/23 19:29 08/18/23 22:29 Ns IVCONT 08/18/23 20:29 Infused .Q1H1M ONE Infusion Sodium Chloride 1,000 mls @ 999 mls/hr 08/18/23 19:38 08/18/23 22:29 Ns IVCONT 08/18/23 20:38 Infused .Q1H1M ONE Infusion Sodium Chloride 1,000 mls @ 999 mls/hr 08/18/23 21:21 08/18/23 22:58 Ns IVCONT 08/18/23 22:21 Infused .Q1H1M ONE Infusion Magnesium Sulfate 2 gm in 50 mls @ 25 mls/hr 08/18/23 21:31 08/18/23 21:38 Magnesium Sulfate/H2o IV 08/18/23 23:30 25 mls/hr ONCE ONE Administration Piperacillin Sod/Tazobactam 50 mls @ 100 mls/hr 08/18/23 21:35 08/18/23 22:29 Sod 3.375 gm/ Sodium Chloride IV 08/18/23 22:04 Infused ONCE ONE Infusion Acetaminophen 1,000 mg in 100 mls @ 400 mls/hr 08/18/23 22:01 08/18/23 22:59 Ofirmev IV 08/18/23 22:15 Infused ONCE ONE Infusion Ibuprofen 600 mg 08/18/23 19:38 08/18/23 20:13 Ibuprofen 600 Mg Tablet PO 08/18/23 19:39 600 mg ONCE ONE Administration Iohexol 85 ml 08/18/23 21:35 08/18/23 21:36 Iohexol 350 Mg/Ml 100 Ml Infus..Btl IV 08/18/23 21:36 85 ml ONCE ONE Administration Ondansetron HCl 4 mg 08/18/23 19:32 08/18/23 20:13 Ondansetron Hcl 4 Mg/2 Ml Vial IVPUSH 08/18/23 19:33 4 mg ONCE ONE Administration Procedures Central Line Placement Right IJ: Time Out Performed: Yes Patient Placed on Monitor/Pulse Ox: Yes MD Prep: mask, gown and gloves Central Line Prep: Chlorhexidine scrub Local Anesthetic: lidocaine 1% Amount of anesthesia used (mL): 5 Ultrasound Used for Placement: Yes Central Line Lumen Inserted: triple Post Procedure: sutured in place, good blood return, all ports aspirated, flushed, capped and sterile dressing applied Post Procedure X-Ray: tip of catheter in good position and no pneumothorax seen Patient Tolerated Procedure: well and no complications Complications: none Medical Decision Making Medical Decision Making [facility] Narrative: - 21:35: Patient still has a fever, patient has received 3 L of fluid. -My interpretation of labs:patient's white blood cell count is normal, chest x- ray does not seem to show any pneumonia. Urinalysis is negative. However, lactic acid is elevated. Patient tested negative for COVID and influenza.The source of infection is still unclear. Prophylactically, patient will be treated with Zosyn. - Patient's troponin is elevated, 2141. No EKG changes that would suggest STEMI - 22:10: Chest x-ray my interpretation: No obvious abnormality. Radiology report: No pneumonia. - Patient is receiving an additional L of fluid. Patient has had a total of 3 L, and Zosyn has been started prophylactically - at this time, there is still no clear source of infection. CTA scan of chest To rule out pulmonary embolism/ dissection pending, also abdomen and pelvis are still pending. - my interpretation of CT scan of the chest: No pulmonary embolism, no dissection. - my interpretation of CT scan of the abdomen: No obvious abnormality - radiology report shows no PE, no dissection. However, the radiology reports inflammation of the pancreas, compatible with pancreatitis. Patient does not seem to have any abdominal pain, lipase is minimally elevated. - pancreatitis is unlikely to be the source of the patient's medical condition. More likely to be respiratory. Respiratory panel pending. Patient's oxygen saturation was 82% on an OxyMask. Patient was switched to a non-rebreather 15 L, oxygen saturation improved to 100%. I discussed with the patient that if she continues to have desaturations, she may need to be intubated. Patient is agreeable. At this time, patient is doing well with 15 L. Awake, alert. - Central line has been placed, patient has Levophed running to increase the blood pressure. Levophed was started peripherally before starting the central line procedure due to low BP - chest x-ray my interpretation: Central line in place, no pneumothorax - patient has no headache, no neck pain or neck stiffness. Patient's mental status improved with IV hydration and with fever reduction. Meningitis is not suspected. - I discussed the patient, labs, EKG with Dr. Whittington from Cardiology, he seems to be a type 2 AK, recommendations: Start heparin and trend troponins every 6-8 hours. - I also discussed the patient with Dr. Rosario from the intensive care unit, patient being admitted. At the time the patient was transferred to the ICU, patient is awake, alert and oriented x3. Overall more alert than when she 1st came in. Blood pressure 188/90, heart rate 114, Levophed being reduced. patient is still on a non- rebreather, soon to be weaned off. Differential Diagnosis Differential Diagnoses: The differential diagnosis associated with the presentation includes ( Pericarditis, myocarditis, COVID, influenza, and STEMI) Admission/Observation Consideration of admission/observation: Escalation of care including admission/observation considered Consult Healthcare Provider Management of the patient was discussed with: Hospitalist and Speech Language Pathologist Prn Lab Data MDM Lab Attestation statement: I reviewed the patient's lab results. 08/18/23 20:18 08/18/23 20:18 Labs: Lab Results 08/18/23 08/18/23 08/18/23 Range/Units 20:18 20:21 20:22 WBC 5.0 (4.8-10.8) X10*3/uL RBC 4.43 (4.20-5.50) X10*6/uL Hgb 13.1 (12.0-16.0) g/dl Hct 40.1 (37.0-47.0) % MCV 90.5 (80.0-98.0) fL MCH 29.6 (27.0-33.0) pg MCHC 32.7 (31.0-35.0) g/dl RDW 13.8 (11.0-16.0) % Plt Count 133 L D (160-400) X10*3/uL MPV 10.4 (9.4-12.3) fL Immature Gran % (Auto) 0.2 (0.0-0.4) % Neut % (Auto) 93.8 H (45-73) % Lymph % (Auto) 5.4 L (20-40) % [place] % (Auto) 0.2 L (2-11) % Eos % (Auto) 0.0 (0-4) % Baso % (Auto) 0.4 (0-2) % Lymph # (Auto) 0.3 L (1.2-4.9) X10*3/uL [place] # (Auto) 0.0 L (0.1-1.2) X10*3/uL Eos # (Auto) 0.0 (0.0-0.4) X10*3/uL Baso # (Auto) 0.0 (0.0-0.2) X10*3/uL Abs Immat Gran (auto) 0.01 (0.00-0.03) X10*3/uL Absolute Neuts (auto) 4.7 (2.0-8.3) x10*3/uL Absolute Nucleated RBC 0.000 (0.0-0.012) X10*3/uL Nucleated RBC % (auto) 0.0 (0.0-0.2) /100WBC Smear Tech's Comments VERIFIED PT 12.5 (11.1-13.3) SEC INR 1.0 (0.9-1.1) APTT 29.2 (26.0-36.4) SEC Sodium 133 L (135-145) mmol/L Potassium 3.7 (3.3-5.1) mmol/L Chloride 97 (96-108) mmol/L Carbon Dioxide 21 L (22-29) mmol/L Anion Gap 19 (12-20) BUN 21 H (9-16) mg/dL Creatinine 2.52 H (0.5-1.4) mg/dL Estim Creat Clear Calc 22.5 Estimated GFR 19 Random Glucose 63 (60-115) mg/dL Lactic Acid 7.5 H* (0.5-2.0) mmol/L Lactic Acid F/U @ 2Hr (0.5-2.0) mmol/L Calcium 8.7 D (8.4-10.2) mg/dL Magnesium 1.2 L* (1.6-2.6) mg/dL Total Bilirubin 0.4 (0.0-1.0) mg/dL Direct Bilirubin 0.1 (0.0-0.5) mg/dL AST 64 H (5-31) U/L ALT 28 (0-31) U/L Alkaline Phosphatase 70 (39-117) U/L Ammonia 18 (13-55) umol/L Troponin I High Sens 2841.4 H* (<3.5-17.0) ng/L Total Protein 7.4 (6.5-8.0) g/dL Albumin 3.4 L (3.5-5.0) g/dL Lipase 84 H (8-78) U/L Urine Color Urine Appearance Urine pH (5.0-9.0) Ur Specific [place] (1.005-1.025) Urine Protein (Neg-Trace) mg/dL Urine Glucose (UA) (Negative) mg/dL Urine Ketones (Negative) mg/dL Urine Blood (Negative) Urine Nitrite (Negative) Ur Leukocyte Esterase (Negative) Urine RBC (0-2) /HPF Urine WBC (0-5) /HPF Ur Squamous Epith Cells (0-2) /HPF Urine Bacteria (None Seen) Hyaline Casts (0-2) /LPF Ethyl Alcohol < 10 mg/dL COVID-19 (RAJ) Negative (Negative) COVID-19 Clin Com See Note Influenza Type A (IVANA) Negative (Negative) Influenza Type B (IVANA) Negative (Negative) Influenza A & B Note See Note 08/18/23 08/18/23 08/18/23 Range/Units 20:34 21:45 23:14 WBC (4.8-10.8) X10*3/uL RBC (4.20-5.50) X10*6/uL Hgb (12.0-16.0) g/dl Hct (37.0-47.0) % MCV (80.0-98.0) fL MCH (27.0-33.0) pg MCHC (31.0-35.0) g/dl RDW (11.0-16.0) % Plt Count (160-400) X10*3/uL MPV (9.4-12.3) fL Immature Gran % (Auto) (0.0-0.4) % Neut % (Auto) (45-73) % Lymph % (Auto) (20-40) % [place] % (Auto) (2-11) % Eos % (Auto) (0-4) % Baso % (Auto) (0-2) % Lymph # (Auto) (1.2-4.9) X10*3/uL [place] # (Auto) (0.1-1.2) X10*3/uL Eos # (Auto) (0.0-0.4) X10*3/uL Baso # (Auto) (0.0-0.2) X10*3/uL Abs Immat Gran (auto) (0.00-0.03) X10*3/uL Absolute Neuts (auto) (2.0-8.3) x10*3/uL Absolute Nucleated RBC (0.0-0.012) X10*3/uL Nucleated RBC % (auto) (0.0-0.2) /100WBC Smear Tech's Comments PT (11.1-13.3) SEC INR (0.9-1.1) APTT (26.0-36.4) SEC Sodium (135-145) mmol/L Potassium (3.3-5.1) mmol/L Chloride (96-108) mmol/L Carbon Dioxide (22-29) mmol/L Anion Gap (12-20) BUN (9-16) mg/dL Creatinine (0.5-1.4) mg/dL Estim Creat Clear Calc Estimated GFR Random Glucose (60-115) mg/dL Lactic Acid 6.2 H* (0.5-2.0) mmol/L Lactic Acid F/U @ 2Hr 7.8 H* (0.5-2.0) mmol/L Calcium (8.4-10.2) mg/dL Magnesium 1.2 L* (1.6-2.6) mg/dL Total Bilirubin (0.0-1.0) mg/dL Direct Bilirubin (0.0-0.5) mg/dL AST (5-31) U/L ALT (0-31) U/L Alkaline Phosphatase (39-117) U/L Ammonia (13-55) umol/L Troponin I High Sens 6229.2 H* D (<3.5-17.0) ng/L Total Protein (6.5-8.0) g/dL Albumin (3.5-5.0) g/dL Lipase (8-78) U/L Urine Color Yellow Urine Appearance Clear Urine pH 6.0 (5.0-9.0) Ur Specific [place] 1.010 (1.005-1.025) Urine Protein Negative (Neg-Trace) mg/dL Urine Glucose (UA) Negative (Negative) mg/dL Urine Ketones Negative (Negative) mg/dL Urine Blood Trace H (Negative) Urine Nitrite Negative (Negative) Ur Leukocyte Esterase Negative (Negative) Urine RBC 6-10 H (0-2) /HPF Urine WBC 0-5 (0-5) /HPF Ur Squamous Epith Cells 0-2 (0-2) /HPF Urine Bacteria None Seen (None Seen) Hyaline Casts 0-2 (0-2) /LPF Ethyl Alcohol mg/dL COVID-19 (RAJ) (Negative) COVID-19 Clin Com Influenza Type A (IVANA) (Negative) Influenza Type B (IVANA) (Negative) Influenza A & B Note Independent Interpretation I performed an independent interpretation of an: Plain X-Ray and CT Scan Radiology Impression Discussion of test interpretation with radiology: I have reviewed the radiologist's reading. Radiologist Impression: Head CT: findings The lateral, third and fourth ventricles are normally outlined. The cortical sulci and basal cisterns are normally outlined as well. There is no acute territorial defect, hemorrhage or midline shift. The extra-axial spaces are unremarkable. Calvarium: Intact. Maxillofacial sinuses and mastoids: Clear as visualized. CT/CT head/brain wo IV con IMPRESSION: No acute intracranial pathology chest CTA: IMPRESSION: 1. No evidence of pulmonary emboli. 2. No evidence of aortic dissection. 3. New cluster of tree-in-bud opacities in the left upper lobe laterally consistent with airway/inflammatory disease. 4. Other incidental findings as described above. VTE: negative. abdominal CT scan IMPRESSION: 1. Acute uncomplicated pancreatitis involving the pancreatic tail. 2. Other incidental findings as described above including periportal edema, left femoral artery stent and degenerative changes in the spine. Fleischner guidelines were followed. Independent Historian Clinical information obtained from an independent historian. History obtained from or confirmed by: Other ( patient's daughter) Chronic Conditions Patient?s care impacted by: Other ( out to immune conditions, rheumatoid arthritis, MGUS) Critical Care Time Critical Care Time Critical Care Time: Yes Total Critical Care Time: 120 Attestation: I have personally provided critical care time. Time includes review of lab data, radiology results, discussion with consultants, and monitoring for potential decompensation. Intervention performed as documented. Discharge Plan Discharge Clinical Impression: Type 2 AK (myocardial infarction), BRE (acute kidney injury), Hypomagnesemia, Pancreatitis, acute, Hypoxia
[2023-08-18] MEDS: Acetaminophen 325 MG TABLET 975 MG PO (20:13)
[2023-08-18] MEDS: ondansetron HCL 4 MG/2 ML VIAL IVPUSH (20:13)
[2023-08-18] MEDS: Ibuprofen 600 MG TABLET PO (20:13)
[2023-08-18] MEDS: 0.9 % Sodium Chloride 1,000 ML 999 ML IVCONT ×3 (20:15→21:39)
[2023-08-18 20:32] LABS: Imm Gran Abs Auto 0.01 X10*3/uL (0.00-0.03); Imm Gran Pct Auto 0.2 % (0.0-0.4); MANUAL DIFF FLAG SCAN; Mean Corpuscular Volume 90.5 fL (80.0-98.0); PLT CLUMP 1; SCAN SMEAR FLAG 1
[2023-08-18 20:34] LABS: Basophils Percent Auto 0.4 % (0-2); Hematocrit 40.1 % (37.0-47.0); Hemoglobin 13.1 g/dl (12.0-16.0); Lymphocytes Absolute Auto 0.3 X10*3/uL (1.2-4.9); Lymphocytes Percent Auto 5.4 % (20-40); Mean Corpuscular HGB Conc 32.7 g/dl (31.0-35.0); Mean Corpuscular Hemoglobin 29.6 pg (27.0-33.0); Mean Platelet Volume 10.4 fL (9.4-12.3); Monocytes Percent Auto 0.2 % (2-11); Neutrophils Absolute Auto 4.7 x10*3/uL (2.0-8.3); Neutrophils Percent Auto 93.8 % (45-73); Red Blood Count 4.43 X10*6/uL (4.20-5.50); Red Cell Distribution Width 13.8 % (11.0-16.0)
[2023-08-18 20:37] LABS: Prothrombin Time 12.5 SEC (11.1-13.3)
[2023-08-18 20:39] LABS: Appearance Urine Clear; Color Urine Yellow; Glucose Urine UA Negative (Negative); Leukocyte Esterase Urine Negative (Negative); Nitrite Urine Negative (Negative); UMIC TRIGGER UACC YES; Urine Blood Trace (Negative); Urine Ketones Negative (Negative); Urine Protein Negative (Neg-Trace)
[2023-08-18 20:40] LABS: Ammonia 18 umol/L (13-55)
[2023-08-18 20:46] LABS: Bacteria Urine None Seen (None Seen); Hyaline Casts Urine 0-2 /LPF (0-2); Squamous Epithelial Cell Urine 0-2 /HPF (0-2); WBC Urine 0-5 /HPF (0-5)
[2023-08-18 20:49] LABS: COVID-19 Test Negative (Negative); IDNOW Serial# 08D9AD1C; IDNOW Serial# BCCEAD1C; Influenza A Negative (Negative); Influenza B2 Negative (Negative)
[2023-08-18 20:50] LABS: Platelet Count 133 X10*3/uL (160-400)
[2023-08-18 20:57] LABS: Lactic Acid 7.5 mmol/L (0.5-2.0)
[2023-08-18 20:58] LABS: Alanine Aminotransferase 28 U/L (0-31); Albumin Level 3.4 g/dL (3.5-5.0); Alkaline Phosphatase 70 U/L (39-117); Anion Gap 19 (12-20); Aspartate Amino Transferase 64 U/L (5-31); Bilirubin Direct 0.1 mg/dL (0.0-0.5); Bilirubin Total 0.4 mg/dL (0.0-1.0); Blood Urea Nitrogen 21 mg/dL (9-16); Calcium 8.7 mg/dL (8.4-10.2); Carbon Dioxide 21 mmol/L (22-29); Chloride 97 mmol/L (96-108); Creatinine Clr Calc Pharmacy 22.5; Estimated Glomerular Filt Rate 19; Ethanol < 10 mg/dL; Glucose Random 63 mg/dL (60-115); Lipase 84 U/L (8-78); Magnesium 1.2 mg/dL (1.6-2.6); Potassium 3.7 mmol/L (3.3-5.1); Sodium 133 mmol/L (135-145); Total Protein 7.4 g/dL (6.5-8.0)
[2023-08-18 21:04] LABS: SLIDE REVIEW VERIFIED
[2023-08-18] MEDS: iohexoL 350 MG/ML 100 ML INFUS..BTL 85 ML IV (21:36)
--- NOTE | 2023-08-18 21:36 | ECG_ITS ---
Test Reason : REPEAT Blood Pressure : / mmHG Vent. Rate : 110 BPM Atrial Rate : 110 BPM P-R Int : 180 ms QRS Dur : 082 ms QT Int : 350 ms P-R-T Axes : 068 078 089 degrees QTc Int : 473 ms Sinus tachycardia Nonspecific ST and T wave abnormality Abnormal ECG When compared with ECG of 18-AUG-2023 20:06, QRS duration has decreased Heart rate has decreased Referred By: Ally Fajardo Electronically Signed By:NGOC MCCLELLAN MD
[2023-08-18] MEDS: Magnesium Sulfate/H2O 2 GM/50 ML PIGGYBACK IV (21:38)
[2023-08-18] MEDS: Piperacillin Sodium/Tazobactam 3.375 GM in 0.9 % Sodium Chloride 50 ML IV (21:55)
[2023-08-18 22:17] LABS: Lactic Acid 6.2 mmol/L (0.5-2.0); Magnesium 1.2 mg/dL (1.6-2.6)
[2023-08-18] MEDS: Acetaminophen 1,000 MG/100 ML PIGGYBACK 400 MG IV (22:21)
[2023-08-18 22:28] LABS: Reflex Lactate? Lactic Acid Added
--- NOTE | 2023-08-18 22:52 | PC.NURSE ---
provider aware of hyotension- levo ordered
[2023-08-18] MEDS: Norepinephrine Bitartrate/D5W 8 MG/250 ML PLAST..BAG 8.48 MG IV (22:55)
[2023-08-18 23:06] LABS: Partial Thromboplastin Time 29.2 SEC (26.0-36.4)
--- NOTE | 2023-08-18 23:18 | PC.NURSE ---
pt at bedside placing central line
--- NOTE | 2023-08-18 23:19 | PC.NURSE ---
Lakesha Rasheed resource present in the ed at this time and will take the pt, adjust the levophed as needed.
[2023-08-18 23:29] LABS: PTT Heparin Drip 47.7 SEC (53-77.9)
--- NOTE | 2023-08-18 23:30 | PM.CCHP ---
History of Present Illness Date of Service: 08/18/23 Attending physician on admission: Shayy Rosario Chief Complaint: Acute septic shock; community-acquired pneumonia HPI: ?73-year-old female with underlying history of sarcoid, rheumatoid arthritis, monoclonal gammopathy of unknown significance, steroid and methotrexate long-term user, history of coronary angiography with unknown results, emphysema, hypertension, pulmonary nodules, hypertension, osteoporosis among others. Patient had presented to the emergency room around 07:00 o'clock tonight , her family had reported complaints of increased confusion since 6 in the morning associated with nausea, vomiting.? Reportedly the patient had been having random words and some vomiting, no history of falls or trauma, she had been noted to be significantly weak unable to walk and over last couple of days she has had a mild cough but no noticeable shortness of breath. Emergency room, patient's workup revealed patient who initially had a normal blood pressure but was tachycardic 112 beats per minute, became tachypneic, more tachycardic, febrile with a T-max of 104.2 degrees, hypoxic with an O2 sat of 88% room air.? Her workup reveal white count 5.0, platelets of 133, sodium 133, potassium 3.7, chloride 97, carbon dioxide 21, anion gap 19, BUN 21, creatinine 2.? Five 2, lactic acid of 6.2 which eventually came up to 7.8, magnesium 1.2, initial troponin of 2141 which went up an hour and half later to 6229. ?Lipase of 84, urinalysis negative, COVID and influenza negative. ?Patient was given 30 mL/kilo of IV fluids, started on Zosyn, given magnesium.? The case had been discussed with the plastics fabricator given her elevated troponin who advised start the patient on heparin given that there is no noticeable ST elevations or depressions on EKG. Patient subsequently became more hypotensive requiring vasopressors.? Currently patient is alert and oriented, complains of 6/10 abdominal pain in the epigastric area, no radiation, sharp in nature, associated with nausea and 2 episodes of vomit at home, some chills, denies any cough or sputum production, admits shortness of breath, admits having an a negative cardiac catheterization several years ago, she does have multiple stents in her right carotid artery, bilateral lower extremities due to peripheral arterial disease, denies leg pain, admits that the color of her upper thighs (somewhat mottled) is the way that she normally has them, she does not feel cool extremities. ROS:? Unable to obtain Past Medical History:? As above Depression Bursitis Pulmonary nodules Xanthelasma Past Surgical History: Bilateral carpal tunnel Laminectomy left knee surgery Prostatic glands and cataract removal Coronary angiogram ' negative Multiple arterial stents including right carotid artery, bilateral lower extremities Family history:? Patient's mother had leukemia, father had diabetes and heart disease, brother heart disease Social History:? Patient lives at home with her spouse, this remote history of tobacco consumption, social alcohol consumption, unable to quantify.? CODE STATUS: FULL CODE Allergies: ?Statin (anaphylaxis) Home Medications: See Med Rec Sepsis PHYSICAL EXAM done at 11:55 p.m: VS: ?61/39, 109, 22, 100.4 F, 100% on non-rebreather mask. General:? Alert oriented x3 no acute distress.? Speaking full sentences.? Speech is well articulated, thought process is coherent.? Following all commands. Skin:? Intact, no lesions, some mottled skin noted on the bilateral lower extremities at the thigh aspect into the bilateral groins, extremities however in the lower aspect are warm. HEENT:? Head is normocephalic, atraumatic, pupils equal round reactive to light accommodation bilaterally.? Extraocular movements appear intact.? Buccal mucosa is dry, Neck is supple without lymphadenopathy, R CVL with c/d/i surroundings Cardiac:? Tachycardic with Clear S1-S2, no murmurs rubs or gallops. Pulmonary:? Diminished lung sounds bilaterally without adventitious lung sounds. Abdomen:? Protuberant, positive bowel sounds in all 4 quadrants.? Soft, slightly tender to palpation in the epigastric area without rebound or guarding. Musculoskeletal:? Moving all 4 extremities upon request a major joints, there is no crepitus or tenderness.? The strength is 5/5 bilaterally and throughout all 4 extremities.? There is no leg edema , no calf tenderness , no leg asymmetry.? Gait not assessed at this point. Neurologic:? As above, cranial nerves 2-12 are grossly intact.? No focal deficits noted. Vascular: ?2+ pulses of the upper extremities bilaterally, 1+ pulses on the bilateral lower extremities dorsal pedal is area, less than 2nd capillary refill of the finger and toes bilaterally upper lower extremities. SIGNIFICANT LABORATORY DATA:? As above REVIEW OF IMAGES: CXR IMPRESSION: 1. No focal infiltrate or congestive heart clear is seen. 2. Lung volumes are low. Mild to moderate elevation of the right hemidiaphragm is newly appreciated. CT ABDOMEN AND PELVIS WITH IV CONTRAST IMPRESSION: 1. Acute uncomplicated pancreatitis involving the pancreatic tail. 2. Other incidental findings as described above including periportal edema, left femoral artery stent and degenerative changes in the spine. CHEST CT ANGIOGRAM IMPRESSION: 1. No evidence of pulmonary emboli. 2. No evidence of aortic dissection. 3. New cluster of tree-in-bud opacities in the left upper lobe laterally consistent with airway/inflammatory disease. 4. Other incidental findings as described above. VTE: negative. HEAD CT IMPRESSION: No acute intracranial pathology. EKG REVIEW: ?TO MY VIEW THIS SINUS TACHYCARDIA 110 BEATS PER MINUTE.? THERE IS NO ST ELEVATIONS OR DEPRESSIONS ASSESSMENT : 1. Acute septic shock 2. Left upper lung pneumonia 3. Acute Hypoxic respiratory failure 4. Hypoosmolar hypovolemic hyponatremia 5. Acute kidney injury 6. Clinical dehydration 7. Metabolic and lactic acidosis 8. NSTEMI likely demand ischemia versus cardiogenic shock 9. Acute mild pancreatitis 10. Hypoalbuminemia 11. Chronic immunosuppressive state PLAN OF CARE: Patient will be admitted to the ICU, monitor vital signs, I's and O's, continue with IV antibiotics, sputum culture and Gram stain, oxygen supplementation, heparin drip a per Cardiology recommendations, full-dose statin, aspirin daily, echocardiogram ordered.? Repeat laboratories in 4 hours and subsequently in the morning, ordered 2 more g of magnesium, slow IV fluids and hold any type of nephrotoxins.? Will continue with Levophed and will start her on hydrocortisone given her steroid dependence and high risk of adrenal insufficiency and crisis. Insulin sliding scale, repeat lipase in the morning, albumin salt infusion x2. Despite of the model numbness of her lower extremities, she does have good pulses, I do not suspect an acute limb ischemia or mass synthetic ischemia especially given a negative CT with IV contrast. ?Antiemetics p.r.n. and opioids for pain. GI PROPHYLAXIS: IV PPI DVT PROPHYLAXIS: on Heparin gtt Follow-up sepsis exam done at 06:30 a.m. on 08/19/2023 VS:?87/47, 102, 16, 91% 15 L nasal cannula General:? Alert oriented x3 no acute distress.? Speaking full sentences.? Speech is well articulated, thought process is coherent.? Following all commands. Skin:? Intact, no lesions, some mottled skin noted on the bilateral lower extremities at the thigh aspect into the bilateral groins, extremities however in the lower aspect are warm. Cardiac:? Tachycardic with Clear S1-S2, no murmurs rubs or gallops. Pulmonary:? Diminished lung sounds bilaterally without adventitious lung sounds. Abdomen:? Protuberant, positive bowel sounds in all 4 quadrants.? Soft, slightly tender to palpation in the epigastric area without rebound or guarding. Musculoskeletal:? Moving all 4 extremities upon request a major joints, there is no crepitus or tenderness.? Vascular:? 2+ pulses of the upper extremities bilaterally, 1+ pulses on the bilateral lower extremities dorsal pedal is area, less than 2nd capillary refill of the finger and toes bilaterally upper lower extremities. Patient was placed on vancomycin given reports of Gram-positive cocci noted in blood cultures, patient is on Levophed and vasopressin, reportedly feels better than before however her prognosis is very guarded. It sodium bicarb x2 amps ordered. Given worsening hypoxia, Lasix 20 mg IV x1 given without major fact, the patient is anuric, started on D5 LR. Will switch her to a bicarbonate drip. Critical care time used for critical evaluation of this patient, diagnosis, treatment and coordination of care, review her records and documentation TOTAL CRITICAL CARE TIME?120 MIN . discussion and coordination with consultants, completely separate from any procedures performed. Patient's care was discussed in detail with Dr. Rosario.? He is aware of all the above as well as the plan of care for this patient. [facility] Past Medical History Medical History Xanthelasma Pulmonary nodules Mild recurrent major depression Emphysema lung Hip bursitis Depression Essential hypertension Family History Family History Mother Leukemia Father Diabetes Heart disease Brother Heart disease Other No family history of cancer Surgical History Surgical History Xanthelasma of lower eyelid History of coronary angiogram Hx of left knee surgery H/O cataract removal with insertion of prosthetic lens H/O laminectomy Carpal tunnel syndrome on both sides Social History Social History Household Members: Spouse Housing: House Are you a primary career development coordinator to a significant other at home: Yes (Son) Do you presently have visiting nurse or other home services: No Unable to assess alcohol history related to: Unknown Alcohol intake: current Alcohol intake frequency: holidays/special occasions only Alcohol type: wine Patient Tobacco Use Status: Former Tobacco user Tobacco use type: Cigarette e-Cigarette/Vaping Use: Never Used Second Hand Smoke Exposure: No Use of substances other than those prescribed or required for medical reasons: No Substance Use Type: Marijuana Currently Displaying Signs/Symptoms of Drug Intoxication Withdrawal: No Advance Directives: No Advance Directives Information Provided: No Do you have thoughts of harming others: None Do you have a plan to hurt others: No Plan Recently lost weight without trying: No Nutrition Risks: Acute nausea or vomiting x1 week Patient : No service: No Current occupational status: employed and retired Cognitive needs: No Hearing needs: No Vision needs: Yes (reading glasses) Meds Allergies Allergy/AdvReac Type Severity Reaction Status Date / Time Thsgnkz-HJB-SoM Reductase Allergy Severe ANAPHYLACTI Verified 08/18/23 18:47 Inhibitor C [[id number]-CBT REDUCTASE INHIBITOR] Active Medications: Current Medications Heparin Sodium (Porcine) (Heparin Sodium,Porcine 5,000 Unit/Ml Vial) 3,600 unit 40 unit/kg (3600 unit) IVPUSH PROTOCOL BOLUS PRN; Protocol PRN Reason: 40 unit/kg - Heparin Protocol Heparin Sodium (Porcine) (Heparin Sodium,Porcine 5,000 Unit/Ml Vial) 7,200 unit 80 unit/kg (7200 unit) IVPUSH PROTOCOL BOLUS PRN; Protocol PRN Reason: 80 unit/kg - Heparin Protocol Hydrocortisone Sodium Succinate (Hydrocortisone Sod Succ/Pf 100 Mg Vial) 100 mg IVPUSH ONCE ONE Stop: 08/18/23 23:19 Norepinephrine Bitartrate (Levophed) 8 mg in 250 mls @ 0 mls/hr IV .Q0M SANDRA; Protocol Last Titration: 08/18/23 23:14 Dose: 1 mcg/kg/min, 169.69 mls/hr Heparin Sodium/Sodium Chloride (Heparin Sodium,Porcine/1/2ns) 25,000 unit in 250 mls @ 0 mls/hr IVCONT .Q0M SANDRA; Protocol Magnesium Sulfate (Magnesium Sulfate/H2o) 2 gm in 50 mls @ 25 mls/hr IV ONCE ONE Stop: 08/19/23 01:19 Pantoprazole Sodium (Pantoprazole Sodium 40 Mg/10 Ml Vial) 40 mg IVPUSH DAILY ONE Stop: 08/19/23 06:01 Home Medications Medication Instructions Recorded Confirmed Last Taken Type clopidogrel 75 mg tablet (Plavix) 75 mg PO DAILY 06/28/20 08/19/23 Unknown History alirocumab 150 mg/mL subcutaneous 150 mg subcut Q2W 06/17/22 08/19/23 Unknown History pen injector (Praluent Pen) Physical Exam Vital Signs: Vital Signs: Last Vital Signs Temp 99.9 F 08/18/23 23:23 Pulse 102 H 08/18/23 23:23 Resp 28 H 08/18/23 23:23 BP 150/77 H 08/18/23 23:23 Pulse Ox 100 08/18/23 23:23 O2 Del Method Non-Rebreather Ma sk 08/18/23 23:23 O2 Flow Rate 2 08/18/23 22:04 BMI result Body Mass Index 32.2 Results Labs 08/19/23 18:27 08/19/23 09:18 Labs: Laboratory Results - last 24 hr 08/18/23 08/18/23 08/18/23 20:18 20:21 20:22 MCV 90.5 MCH 29.6 MCHC 32.7 RDW 13.8 Plt Count 133 L D MPV 10.4 Immature Gran % (Auto) 0.2 Neut % (Auto) 93.8 H Lymph % (Auto) 5.4 L [place] % (Auto) 0.2 L Eos % (Auto) 0.0 Baso % (Auto) 0.4 Lymph # (Auto) 0.3 L [place] # (Auto) 0.0 L Eos # (Auto) 0.0 Baso # (Auto) 0.0 Abs Immat Gran (auto) 0.01 Absolute Neuts (auto) 4.7 Absolute Nucleated RBC 0.000 Nucleated RBC % (auto) 0.0 Smear Tech's Comments VERIFIED PT 12.5 INR 1.0 APTT 29.2 aPTT Heparin Protocol Anion Gap 19 Estim Creat Clear Calc 22.5 Estimated GFR 19 Random Glucose 63 Lactic Acid 7.5 H* Calcium 8.7 D Magnesium 1.2 L* Total Bilirubin 0.4 Direct Bilirubin 0.1 AST 64 H ALT 28 Alkaline Phosphatase 70 Ammonia 18 Total Protein 7.4 Albumin 3.4 L Lipase 84 H Urine Color Urine Appearance Urine pH Ur Specific [place] Urine Protein Urine Glucose (UA) Urine Ketones Urine Blood Urine Nitrite Ur Leukocyte Esterase Urine RBC Urine WBC Ur Squamous Epith Cells Urine Bacteria Hyaline Casts Ethyl Alcohol < 10 COVID-19 (RAJ) Negative COVID-19 Clin Com See Note Influenza Type A (IVANA) Negative Influenza Type B (IVANA) Negative Influenza A & B Note See Note 08/18/23 08/18/23 08/18/23 20:34 21:45 23:15 MCV MCH MCHC RDW Plt Count MPV Immature Gran % (Auto) Neut % (Auto) Lymph % (Auto) [place] % (Auto) Eos % (Auto) Baso % (Auto) Lymph # (Auto) [place] # (Auto) Eos # (Auto) Baso # (Auto) Abs Immat Gran (auto) Absolute Neuts (auto) Absolute Nucleated RBC Nucleated RBC % (auto) Smear Tech's Comments PT INR APTT aPTT Heparin Protocol 47.7 L Anion Gap Estim Creat Clear Calc Estimated GFR Random Glucose Lactic Acid 6.2 H* Calcium Magnesium 1.2 L* Total Bilirubin Direct Bilirubin AST ALT Alkaline Phosphatase Ammonia Total Protein Albumin Lipase Urine Color Yellow Urine Appearance Clear Urine pH 6.0 Ur Specific [place] 1.010 Urine Protein Negative Urine Glucose (UA) Negative Urine Ketones Negative Urine Blood Trace H Urine Nitrite Negative Ur Leukocyte Esterase Negative Urine RBC 6-10 H Urine WBC 0-5 Ur Squamous Epith Cells 0-2 Urine Bacteria None Seen Hyaline Casts 0-2 Ethyl Alcohol COVID-19 (RAJ) COVID-19 Clin Com Influenza Type A (IVANA) Influenza Type B (IVANA) Influenza A & B Note Imaging Radiologist's Impressions: Impressions Chest X-Ray 08/18/23 19:47 IMPRESSION: 1. No focal infiltrate or congestive heart clear is seen. 2. Lung volumes are low. Mild to moderate elevation of the right hemidiaphragm is newly appreciated. Abdomen/Pelvis CT 08/18/23 21:57 IMPRESSION: 1. Acute uncomplicated pancreatitis involving the pancreatic tail. 2. Other incidental findings as described above including periportal edema, left femoral artery stent and degenerative changes in the spine. Fleischner guidelines were followed. Chest CTA 08/18/23 21:57 IMPRESSION: 1. No evidence of pulmonary emboli. 2. No evidence of aortic dissection. 3. New cluster of tree-in-bud opacities in the left upper lobe laterally consistent with airway/inflammatory disease. 4. Other incidental findings as described above. VTE: negative. According to the UPDATED 2017 Fleischner Society recommendations, the advised follow-up imaging for a single 6-8 mm solid nodule is follow-up CT at 6 to 12 months. In high-risk patients, subsequent CT follow-up at 18 to 24 months is recommended. In low-risk patients, subsequent CT follow-up at 18 to 24 months is optional. . Head CT 08/18/23 22:00
[2023-08-18 23:37] LABS: ~Lactic Acid-LAB USE ONLY 7.8 mmol/L (0.5-2.0)
--- NOTE | 2023-08-18 23:38 | PC.NURSE ---
critical LA 7.8 received by this rn dr garcia and primary rn made aware no new orders
[2023-08-18 23:55] LABS: Reflex Lactate? Lactic Acid Added
[2023-08-19] VITALS (44 sets, daily range): BP systolic 77–134; BP diastolic 43–73; PULSE 96–125; RESP 12–36; TEMP 36.3–37.9; O2SAT 88–99; BMI 32.2
[2023-08-19] MEDS: Hydrocortisone Sod Succ/PF 100 MG VIAL IVPUSH (00:21)
[2023-08-19] MEDS: Albumin Human 25 % 100 ML IV ×6 (00:23→22:30)
[2023-08-19] MEDS: Magnesium Sulfate/H2O 2 GM/50 ML PIGGYBACK IV (00:26)
[2023-08-19] MEDS: Heparin Sodium,Porcine/1/2NS 25,000 UNIT/250 ML IV.SOLN 12.67 UNIT IVCONT (00:36)
[2023-08-19] MEDS: HYDROmorphone HCl 1 MG/ML SYRINGE IVPUSH ×5 (00:49→22:52)
[2023-08-19] MEDS: ondansetron HCL 4 MG/2 ML VIAL IVPUSH ×3 (00:49→22:53)
[2023-08-19] MEDS: Norepinephrine Bitartrate/D5W 8 MG/250 ML PLAST..BAG 86.54 MG IV (00:50)
[2023-08-19 01:19] LABS: Reflex Lactate? 2 Y
[2023-08-19 01:46] LABS: Hematocrit 34.7 % (37.0-47.0); Hemoglobin 11.3 g/dl (12.0-16.0); Mean Corpuscular HGB Conc 32.6 g/dl (31.0-35.0); Mean Corpuscular Hemoglobin 30.1 pg (27.0-33.0); Mean Corpuscular Volume 92.3 fL (80.0-98.0); Red Blood Count 3.76 X10*6/uL (4.20-5.50); White Blood Count 5.1 X10*3/uL (4.8-10.8)
[2023-08-19] MEDS: Acetaminophen 325 MG TABLET 650 MG PO ×2 (01:49→20:10)
[2023-08-19] MEDS: vancomycin/NS 2,000 MG/500 ML PLAST..BAG 250 MG IV (01:57)
[2023-08-19 02:00] LABS: ~Lactic Acid-LAB USE ONLY 6.9 mmol/L (0.5-2.0)
[2023-08-19 02:04] LABS: Platelet Count 68 X10*3/uL (160-400)
[2023-08-19 02:07] LABS: Alanine Aminotransferase 45 U/L (0-31); Albumin Level 3.6 g/dL (3.5-5.0); Alkaline Phosphatase 85 U/L (39-117); Anion Gap 21 (12-20); Aspartate Amino Transferase 123 U/L (5-31); Bilirubin Total 0.7 mg/dL (0.0-1.0); Blood Urea Nitrogen 24 mg/dL (9-16); Calcium 7.5 mg/dL (8.4-10.2); Carbon Dioxide 15 mmol/L (22-29); Chloride 99 mmol/L (96-108); Creatinine Clr Calc Pharmacy 19.6; Estimated Glomerular Filt Rate 16; Glucose Random 55 mg/dL (60-115); Magnesium 1.5 mg/dL (1.6-2.6); Phosphorus 5.1 mg/dL (2.7-4.5); Potassium 3.6 mmol/L (3.3-5.1); Sodium 131 mmol/L (135-145); Total Protein 6.6 g/dL (6.5-8.0)
[2023-08-19 02:08] LABS: Band Neutrophils Percent 45 % (3-5); Metamyelocytes Absolute 0.5 X10*3/uL; Metamyelocytes Percent 10 %; Myelocytes Absolute 0.1 X10*/uL; Myelocytes Percent 1 %; Neutrophils Absolute Manual 4.5 X10*3/uL (2.0-8.3); Neutrophils Percent Manual 44 % (45-73)
[2023-08-19 02:10] LABS: Acanthocytes 1+ (0-2) /OIF; Platelet Estimate DECREASED (NORMAL); Platelet Morphology Comment NORMAL; RBC Morphology NOTED; Schistocytes 1+ (0-2) /OIF; Spherocytes 1+ (0-2) /OIF
[2023-08-19 02:11] LABS: Dohle Bodies PRESENT; Toxic Granulation PRESENT
[2023-08-19 02:12] LABS: Rouleau PRESENT; Toxic Vacuolation PRESENT
[2023-08-19] MEDS: Dextrose 50 % 25 GM/50 ML SYRINGE IVPUSH (02:20)
[2023-08-19] MEDS: Dextrose 5 % and Lactated Ring 1,000 ML 100 ML IVCONT (02:29)
[2023-08-19] MEDS: Vasopressin 20 UNIT/100 ML INFUS..BTL 12 UNIT IVCONT ×3 (02:51→18:20)
[2023-08-19] MEDS: Norepinephrine Bitartrate/D5W 8 MG/250 ML PLAST..BAG 89.93 MG IV (03:33)
[2023-08-19] MEDS: Furosemide 20 MG/2 ML VIAL IVPUSH (04:02)
[2023-08-19] MEDS: Piperacillin Sodium/Tazobactam 3.375 GM in 0.9 % Sodium Chloride 50 ML IV ×3 (04:03→14:58)
[2023-08-19 04:49] LABS: VBG Base Excess -12.6 mmol/L; VBG HCO3 15 mmol/L (22-26); VBG pCO2 39 mmHg; VBG pH 7.17 (7.32-7.43); VBG pO2 51 mmHg
[2023-08-19 04:50] LABS: Venous Blood Gas Refer to POC result
[2023-08-19] MEDS: Pantoprazole Sodium 40 MG/10 ML VIAL IVPUSH (04:59)
[2023-08-19] MEDS: Sodium Bicarbonate 8.4% 50 MEQ/50 ML SYRINGE 100 MEQ IVPUSH ×2 (05:02→07:49)
[2023-08-19 05:51] LABS: Mean Platelet Volume 10.3 fL (9.4-12.3); PLT CLUMP 1
[2023-08-19 05:53] LABS: Hematocrit 33.9 % (37.0-47.0); Hemoglobin 10.9 g/dl (12.0-16.0); Mean Corpuscular HGB Conc 32.2 g/dl (31.0-35.0); Mean Corpuscular Hemoglobin 30.1 pg (27.0-33.0); Mean Corpuscular Volume 93.6 fL (80.0-98.0); NRBC Pct Auto 0.2 /100WBC (0.0-0.2); Red Blood Count 3.62 X10*6/uL (4.20-5.50)
[2023-08-19] MEDS: Norepinephrine Bitartrate/D5W 8 MG/250 ML PLAST..BAG 100.12 MG IV (05:58)
[2023-08-19 06:04] LABS: Platelet Count 56 X10*3/uL (160-400); White Blood Count 8.3 X10*3/uL (4.8-10.8)
[2023-08-19 06:10] LABS: Alanine Aminotransferase 55 U/L (0-31); Albumin Level 3.2 g/dL (3.5-5.0); Alkaline Phosphatase 81 U/L (39-117); Anion Gap 19 (12-20); Aspartate Amino Transferase 148 U/L (5-31); Bilirubin Total 0.8 mg/dL (0.0-1.0); Blood Urea Nitrogen 26 mg/dL (9-16); Carbon Dioxide 15 mmol/L (22-29); Chloride 100 mmol/L (96-108); Estimated Glomerular Filt Rate 15; Glucose Random 106 mg/dL (60-115); Lipase 93 U/L (8-78); Potassium 3.5 mmol/L (3.3-5.1); Sodium 130 mmol/L (135-145)
[2023-08-19 06:30] LABS: Band Neutrophils Percent 41 % (3-5); Lymphocytes Absolute Manual 0.2 X10*3/uL (1.2-4.9); Lymphocytes Percent Manual 2 % (20-40); Metamyelocytes Absolute 0.8 X10*3/uL; Metamyelocytes Percent 10 %; Neutrophils Absolute Manual 7.3 X10*3/uL (2.0-8.3); Neutrophils Percent Manual 47 % (45-73)
[2023-08-19 06:32] LABS: Acanthocytes 1+ (0-2) /OIF; Large Platelet PRESENT; Platelet Estimate DECREASED (NORMAL); Platelet Morphology Comment NOTED; RBC Morphology NOTED; Schistocytes 1+ (0-2) /OIF
[2023-08-19 06:33] LABS: Rouleau PRESENT; Spherocytes 1+ (0-2) /OIF; Toxic Granulation PRESENT; Toxic Vacuolation PRESENT
--- NOTE | 2023-08-19 06:41 | PHA.PROG ---
Addendum entered by Esperanza Fletcher RPh 08/19/23 06:44: WE WENT WITH A MORE CONSERVATIVE APPROACH SINCE SCR IS TRENDING UP Original Note: Admission Date/Time: August 18, 2023 23:15 Indication: SEPSIS Weight in k.5 kg Adjusted body weight in Kg: [place] body weight in Kg: Obesity Dosing Indication % IBW: Serum Creatinine - Last 168 Hours 08/18/23 08/19/23 08/19/23 20:18 01:38 04:38 Creatinine 2.52 H 2.90 H 2.99 H Estimated CrCl and GFR - Last 168 Hours 08/18/23 08/19/23 08/19/23 20:18 01:38 04:38 Estim Creat Clear Calc 22.5 19.6 19.0 Estimated GFR 19 16 15 Vancomycin Loading Dose: 2000 MG X 1 Current Vancomycin Dosing Regimen: 500 MG Q24H Vancomycin Monitoring using AUC goal of 400 - 600 range with trough as surrogate marker: AUC 408; 14.7 Pharmacist Comments on Vancomycin Plan: 08/20 @2100 Vancomycin dosing will take advantage of [employer] as a clinical decision support tool that uses Bayesian modeling to calculate individual patient's pharmacokinetic parameters and forecast the patient's drug concentration time course with the target goal AUC 24 range of 400 - 600 mg/L/hr.
[2023-08-19 06:47] LABS: PTT Heparin Drip 151.7 SEC (53-77.9)
--- NOTE | 2023-08-19 07:00 | CA_ITS ---
Transthoracic Echocardiogram Patient (Last, First, Middle): Tasha Nieto A Gender: Female Date of : 1950 Age: 73 Procedure Date: 08/19/2023 Procedure Type: Transthoracic Echocardiogram Location: ICU Height: 167.64 cm Weight: 90.27 kg BSA: 2.00 m2 Heart Rate: 97 bpm BP: 95 / 60 mmHg Validation Specialist: CHRISTINA Carreon MD: Nicola BOYD Engineering Faculty Member: Noel Whittington MD Symptoms: NSTEMI Study Quality: Adequate w contrast ECG Rhythm: Sinus Conclusions: - 1. Moderate to severe reduction LV ejection fraction with LVEF of 30-35% with impaired relaxation filling pattern 2. Mild mitral calcification and calcific aortic valve changes noted with cardiac valvular Dopplers within normal limits 3. No gross pericardial effusion Findings Procedure Information Contrast agent, definity, is being given per protocol without apparent complications. Left Ventricle Normal left ventricular cavity size. There is normal left ventricular wall thickness. The left ventricular systolic function is moderate to severely decreased. The visually estimated ejection fraction is between 30-35%. Spectral Doppler is indicative of an impaired relaxation filling pattern. E/E prime ratio is between 8 and 15 consistent with indeterminate filling pressures. Right Ventricle Normal right ventricular cavity size. Atria The left atrium is normal in size. Interatrial shunt cannot be excluded. The right atrium was not well visualized. Aortic Valve The aortic valve was not well visualized. There is no aortic valve stenosis. There is no aortic valve regurgitation. Mitral Valve There is mild mitral annular calcification. There is trace mitral valve regurgitation. There is no mitral valve stenosis. Pulmonic Valve The pulmonic valve was not well visualized. Great Vessels The pulmonary artery was not well visualized. There is no dilatation of the ascending aorta. Venous The inferior vena cava is moderately dilated and does not collapse with inspiration. the IVC dilated and noncollapsible, not sure if patient is on positive pressure ventilation Pericardium/Pleural There is no evidence of pericardial effusion. Prior Study Comparison No prior study available for comparison. Measurements 2D Linear Measurements IVSd: 0.86 0.6-0.9/0.6-1.0 cm LVIDd: 4.01 3.9-5.3/4.2-5.9 cm LVIDd Index: 2.01 2.4-3.2/2.2-3.1 cm/m2 LVIDs: 3.21 2.0-3.6 cm LVPWd: 0.88 0.7-1.1 cm LA Diam: 2.90 2.7-3.8/3.0-4.0 cm LAIDs Index: 1.45 1.5-2.3 cm/m2 LV Mass: 130.24 67-162/88-224 g LV Mass Index: 65.12 43-95/49-115 g/m2 LVOT Diam: 1.90 3.0+(-)1.3 cm 2D Systolic Function EF 4C: 45.00 >55% EF 2C: 29.60 >55% EF BiP: 35.50 >55% Mitral Valve MV Pk E: 0.41 MV PK A: 1.05 MV Decel Time: 61.00 E/A: 0.40 E'Lateral: 5.66 E'Medial: 3.70 E/E' Med: 11.00 E/E' Lat: 7.20 PHT: 18.00 MVA PHT: 12.22 Decel [place]: 6.70 Aortic Valve AoV Pk Gage: 0.97 AoV Mn Ggae: 0.66 AoV VTI: 0.15 AoV Pk Grad: 4.00 Aov Mn Grad: 2.00 JUDSON Cont.VTI: 2.01 LVOT LVOT Pk Gage: 0.69 LVOT Mn Gage: 0.46 LVOT VTI: 0.11 LVOT Pk Grad: 2.00 LVOT Mn Grad: 1.00 LVOT Diam: 1.90 LVOT Area: 2.84 Diastolic Function MV Pk E: 0.41 MV Pk A: 1.05 E/A: 0.40 E'Medial: 3.70 E/E' Med: 11.00 E' Laterial: 5.66 E/E' Lat: 7.20 Right Ventricle TAPSE (mm): 21.40 TVS' Gage: 8.49 Great Vessels Aorta Sinus of Valsalva: 3.10 2.0-3.5 cm Ao Asc: 3.20 2.1-3.4 cm Updated in Other Vendor System with Status of Final Noel Whittington MD electronically signed on 08/19/2023 2:22:02 PM with status of Final
--- NOTE | 2023-08-19 07:07 | PC.NURSE ---
Pt admitted to ICU from ED at approx 0000. Upon initial assessment- pt A&Ox4, calm/cooperative. Afebrile. NSR/ST on tele, HR 90-110s. TLC placed to R IJ. Levophed/vasopressin ordered and titrated to maintain MAP > 65. Given albumin 100 mL IV x2. Electrolytes replaced per MAR. Heparin gtt started per protocol. Pt denies any CP/SOB. Extremities cool/clammy, mottled, +CSM, weak but palpable peripheral pulses. Progressively becoming more hypoxic requiring 15L NRB to maintain SpO2 > 92%. Given Lasix 20 mg IVP x1 with no effect. [place] in place, now anuric- provider aware. Endorses nausea- given PRN Zofran per MAR. Abd semi-firm, slight tenderness to palpation. +BM via bedpan. Medicated per NOV for pain. Skin overall intact. Pt/family aware of pt status/plan of care. Call brantley in reach, bed locked in lowest position.
--- NOTE | 2023-08-19 07:25 | PHA.MEDREC ---
Pharmacy Consult ? Medication Reconciliation Pharmacy has completed the medication reconciliation.Unable to talk to the patient. Used claim history
[2023-08-19] MEDS: Calcium Gluconate/NaCl,Iso-Osm 1 GM/50 ML PLAST..BAG IV (07:58)
[2023-08-19] MEDS: Hydrocortisone Sod Succ/PF 100 MG VIAL 50 MG IVPUSH ×3 (08:12→17:17)
[2023-08-19] MEDS: Sodium Bicarbonate 8.4% 150 MEQ in Dextrose 5 % 850 ML 100 MEQ IV ×2 (08:24→17:01)
--- NOTE | 2023-08-19 09:06 | P.PNCC_ITS ---
Subjective Subjective Date of Service: 08/19/23 Interval History: admitted overnight for septic shock Critical Care Time (minutes): 90 Physical Exam 2 Vital Signs: Vital Signs: Last Vital Signs Temp 97.3 F 08/19/23 09:00 Pulse 100 08/19/23 09:00 Resp 19 08/19/23 09:00 BP 101/59 L 08/19/23 09:00 Pulse Ox 96 08/19/23 09:00 O2 Del Method Non-Rebreather Ma sk 08/19/23 09:00 O2 Flow Rate 15 08/19/23 09:00 BMI result Body Mass Index 32.2 Const: General: cooperative, healthy appearing, comfortable, no acute distress, alert, awake and Physically active Orientation/consciousness: p atient oriented x3 HEENT: Head: Yes normal to inspection, Yes normocephalic and Yes atraumatic Eyes: General: appearance normal, both eyes and all related structures Neck: Neck: Yes normal visual inspection, Yes full ROM, Yes no meningeal signs and Yes supple Chest: Chest palpation & inspection: normal inspection of the chest Resp: Other: some appreciable rales, left upper lung field; no appreciable rhonchi, wheezing Cardio: Rate: regular rate Rhythm: regular rhythm GI: Inspection: Yes normal to inspection, No Abdominal wall edema and No distended Palpation (GI): Soft to palpation, not firm, nontender, no guarding and not rigid Skin: General skin exam: no rashes or lesions noted Neuro: General: patient oriented x3, moves all extremities, no meningeal signs and no focal motor deficits Extrem: Other: appreciable mottling to bilateral thighs Psych: Appearance: grossly normal Objective Data Labs 08/19/23 04:38 08/19/23 04:38 Labs: Laboratory Results - last 24 hr 08/18/23 08/18/23 08/18/23 20:18 20:21 20:22 WBC 5.0 RBC 4.43 Hgb 13.1 Hct 40.1 MCV 90.5 MCH 29.6 MCHC 32.7 RDW 13.8 Plt Count 133 L D MPV 10.4 Immature Gran % (Auto) 0.2 Neut % (Auto) 93.8 H Lymph % (Auto) 5.4 L Edmunds % (Auto) 0.2 L Eos % (Auto) 0.0 Baso % (Auto) 0.4 Lymph # (Auto) 0.3 L Edmunds # (Auto) 0.0 L Eos # (Auto) 0.0 Baso # (Auto) 0.0 Abs Immat Gran (auto) 0.01 Absolute Neuts (auto) 4.7 Absolute Nucleated RBC 0.000 Nucleated RBC % (auto) 0.0 Neutrophils % (Manual) Band Neutrophils % Lymphocytes % (Manual) Metamyelocytes % Myelocytes % Abs Neuts (Manual) Lymphocytes # (Manual) Metamyelocytes # Myelocytes # Toxic Granulation Toxic Vacuolation Dohle Bodies Platelet Estimate Large Platelets Plt Morphology Comment RBC Morphology Spherocytes Acanthocytes (Spur) Rouleaux Schistocytes Smear Tech's Comments VERIFIED PT 12.5 INR 1.0 APTT 29.2 aPTT Heparin Protocol VBG pH VBG pCO2 VBG pO2 VBG HCO3 VBG O2 Saturation VBG Base Excess Sodium 133 L Potassium 3.7 Chloride 97 Carbon Dioxide 21 L Anion Gap 19 BUN 21 H Creatinine 2.52 H Estim Creat Clear Calc 22.5 Estimated GFR 19 Random Glucose 63 Lactic Acid 7.5 H* Lactic Acid F/U @ 2Hr Lactic Acid F/U @ 4Hr Calcium 8.7 D Phosphorus Magnesium 1.2 L* Total Bilirubin 0.4 Direct Bilirubin 0.1 AST 64 H ALT 28 Alkaline Phosphatase 70 Ammonia 18 Troponin I High Sens 2841.4 H* Total Protein 7.4 Albumin 3.4 L Lipase 84 H Urine Color Urine Appearance Urine pH Ur Specific Aragon Urine Protein Urine Glucose (UA) Urine Ketones Urine Blood Urine Nitrite Ur Leukocyte Esterase Urine RBC Urine WBC Ur Squamous Epith Cells Urine Bacteria Hyaline Casts Ethyl Alcohol < 10 COVID-19 (RAJ) Negative COVID-19 Clin Com See Note Influenza Type A (IVANA) Negative Influenza Type B (IVANA) Negative Influenza A & B Note See Note 08/18/23 08/18/23 08/18/23 20:34 21:45 23:14 WBC RBC Hgb Hct MCV MCH MCHC RDW Plt Count MPV Immature Gran % (Auto) Neut % (Auto) Lymph % (Auto) Edmunds % (Auto) Eos % (Auto) Baso % (Auto) Lymph # (Auto) Edmunds # (Auto) Eos # (Auto) Baso # (Auto) Abs Immat Gran (auto) Absolute Neuts (auto) Absolute Nucleated RBC Nucleated RBC % (auto) Neutrophils % (Manual) Band Neutrophils % Lymphocytes % (Manual) Metamyelocytes % Myelocytes % Abs Neuts (Manual) Lymphocytes # (Manual) Metamyelocytes # Myelocytes # Toxic Granulation Toxic Vacuolation Dohle Bodies Platelet Estimate Large Platelets Plt Morphology Comment RBC Morphology Spherocytes Acanthocytes (Spur) Rouleaux Schistocytes Smear Tech's Comments PT INR APTT aPTT Heparin Protocol VBG pH VBG pCO2 VBG pO2 VBG HCO3 VBG O2 Saturation VBG Base Excess Sodium Potassium Chloride Carbon Dioxide Anion Gap BUN Creatinine Estim Creat Clear Calc Estimated GFR Random Glucose Lactic Acid 6.2 H* Lactic Acid F/U @ 2Hr 7.8 H* Lactic Acid F/U @ 4Hr Calcium Phosphorus Magnesium 1.2 L* Total Bilirubin Direct Bilirubin AST ALT Alkaline Phosphatase Ammonia Troponin I High Sens 6229.2 H* D Total Protein Albumin Lipase Urine Color Yellow Urine Appearance Clear Urine pH 6.0 Ur Specific Aragon 1.010 Urine Protein Negative Urine Glucose (UA) Negative Urine Ketones Negative Urine Blood Trace H Urine Nitrite Negative Ur Leukocyte Esterase Negative Urine RBC 6-10 H Urine WBC 0-5 Ur Squamous Epith Cells 0-2 Urine Bacteria None Seen Hyaline Casts 0-2 Ethyl Alcohol COVID-19 (RAJ) COVID-19 Clin Com Influenza Type A (IVANA) Influenza Type B (IVANA) Influenza A & B Note 08/18/23 08/19/23 08/19/23 23:15 01:38 04:38 WBC 5.1 8.3 RBC 3.76 L 3.62 L Hgb 11.3 L 10.9 L Hct 34.7 L 33.9 L MCV 92.3 93.6 MCH 30.1 30.1 MCHC 32.6 32.2 RDW 14.0 14.0 Plt Count 68 L D 56 L MPV 10.0 10.3 Immature Gran % (Auto) Cancelled Cancelled Neut % (Auto) Cancelled Cancelled Lymph % (Auto) Cancelled Cancelled Edmunds % (Auto) Cancelled Cancelled Eos % (Auto) Cancelled Cancelled Baso % (Auto) Cancelled Cancelled Lymph # (Auto) Cancelled Cancelled Edmunds # (Auto) Cancelled Cancelled Eos # (Auto) Cancelled Cancelled Baso # (Auto) Cancelled Cancelled Abs Immat Gran (auto) Cancelled Cancelled Absolute Neuts (auto) Cancelled Cancelled Absolute Nucleated RBC 0.000 0.020 H Nucleated RBC % (auto) 0.0 0.2 Neutrophils % (Manual) 44 L 47 Band Neutrophils % 45 H 41 H Lymphocytes % (Manual) 2 L Metamyelocytes % 10 10 Myelocytes % 1 Abs Neuts (Manual) 4.5 7.3 Lymphocytes # (Manual) 0.2 L Metamyelocytes # 0.5 0.8 Myelocytes # 0.1 Toxic Granulation PRESENT PRESENT Toxic Vacuolation PRESENT PRESENT Dohle Bodies PRESENT Platelet Estimate DECREASED DECREASED Large Platelets PRESENT Plt Morphology Comment NORMAL NOTED RBC Morphology NOTED NOTED Spherocytes 1+ (0-2) 1+ (0-2) Acanthocytes (Spur) 1+ (0-2) 1+ (0-2) Rouleaux PRESENT PRESENT Schistocytes 1+ (0-2) 1+ (0-2) Smear Tech's Comments PT INR APTT aPTT Heparin Protocol 47.7 L VBG pH VBG pCO2 VBG pO2 VBG HCO3 VBG O2 Saturation VBG Base Excess Sodium 131 L 130 L Potassium 3.6 3.5 Chloride 99 100 Carbon Dioxide 15 L 15 L Anion Gap 21 H 19 BUN 24 H 26 H Creatinine 2.90 H 2.99 H Estim Creat Clear Calc 19.6 19.0 Estimated GFR 16 15 Random Glucose 55 L* 106 Lactic Acid Lactic Acid F/U @ 2Hr Lactic Acid F/U @ 4Hr 6.9 H* Calcium 7.5 L D 7.0 L D Phosphorus 5.1 H Magnesium 1.5 L Total Bilirubin 0.7 0.8 Direct Bilirubin AST 123 H 148 H ALT 45 H 55 H Alkaline Phosphatase 85 81 Ammonia Troponin I High Sens 7498.8 H* Total Protein 6.6 6.0 L Albumin 3.6 3.2 L Lipase 93 H Urine Color Urine Appearance Urine pH Ur Specific Aragon Urine Protein Urine Glucose (UA) Urine Ketones Urine Blood Urine Nitrite Ur Leukocyte Esterase Urine RBC Urine WBC Ur Squamous Epith Cells Urine Bacteria Hyaline Casts Ethyl Alcohol COVID-19 (RAJ) COVID-19 Clin Com Influenza Type A (IVANA) Influenza Type B (IVANA) Influenza A & B Note 08/19/23 08/19/23 04:42 06:16 WBC RBC Hgb Hct MCV MCH MCHC RDW Plt Count MPV Immature Gran % (Auto) Neut % (Auto) Lymph % (Auto) Edmunds % (Auto) Eos % (Auto) Baso % (Auto) Lymph # (Auto) Edmunds # (Auto) Eos # (Auto) Baso # (Auto) Abs Immat Gran (auto) Absolute Neuts (auto) Absolute Nucleated RBC Nucleated RBC % (auto) Neutrophils % (Manual) Band Neutrophils % Lymphocytes % (Manual) Metamyelocytes % Myelocytes % Abs Neuts (Manual) Lymphocytes # (Manual) Metamyelocytes # Myelocytes # Toxic Granulation Toxic Vacuolation Dohle Bodies Platelet Estimate Large Platelets Plt Morphology Comment RBC Morphology Spherocytes Acanthocytes (Spur) Rouleaux Schistocytes Smear Tech's Comments PT INR APTT aPTT Heparin Protocol 151.7 H* D VBG pH 7.17 L* VBG pCO2 39 VBG pO2 51 VBG HCO3 15 L VBG O2 Saturation 76.0 VBG Base Excess -12.6 Sodium Potassium Chloride Carbon Dioxide Anion Gap BUN Creatinine Estim Creat Clear Calc Estimated GFR Random Glucose Lactic Acid Lactic Acid F/U @ 2Hr Lactic Acid F/U @ 4Hr Calcium Phosphorus Magnesium Total Bilirubin Direct Bilirubin AST ALT Alkaline Phosphatase Ammonia Troponin I High Sens Total Protein Albumin Lipase Urine Color Urine Appearance Urine pH Ur Specific Aragon Urine Protein Urine Glucose (UA) Urine Ketones Urine Blood Urine Nitrite Ur Leukocyte Esterase Urine RBC Urine WBC Ur Squamous Epith Cells Urine Bacteria Hyaline Casts Ethyl Alcohol COVID-19 (RAJ) COVID-19 Clin Com Influenza Type A (IVANA) Influenza Type B (IVANA) Influenza A & B Note Microbiology Microbiology Results: Microbiology 08/18/23 21:45 Blood - Venous Blood Culture - Preliminary Prelim: GPC Gram Stain only 08/18/23 20:17 Blood - Venous Blood Culture - Preliminary Prelim: GPC Gram Stain only Progress Note: A&P Assessment and plan (1) BRE (acute kidney injury): Status: Acute (2) Type 2 CA (myocardial infarction): Status: Acute (3) Pneumonia: Status: Acute (4) Acute hypoxic respiratory failure: Status: Acute (5) Septic shock due to Gram positive bacteria: Status: Acute Plan Patient is a 73 Y F with sarcoid, rheumatoid arthritis, on abatacept, prednisone, presenting to emergency department on 08/18 w/ encephalopathy, found to have left upper lobe pneumonia, c/b acute hypoxic respiratory failure, gram positive cocci bacteremia, c/b septic shock, admited ICU N: encephalopathy, improved, now alert, oriented CV: septic shock, necessitating high-dose norepinephrine gtt, vasopressin gtt; troponinemia, likely d/t NSTEMI; to follow-up echocardiogram, cardiology recommendations; of note, patient with thrombocytopenia, to hold heparin gtt R: left upper lobe pneumonia, c/b acute hypoxic respiratory failure, on 10 L, wean as tolerated GI: cardiac diet; radiographic evidence of pancreatitis : acute renal insufficiency, non-oligouric; to monitor very closely H: no acute issues ID: left upper lobe pneumonia, c/b gram positive bacteremia; to follow-up blood cultures, sputum cultures; empiric vancomycin, zosyn R: sarcoidosis, rheuatoid arthritis E: given on home prednisone, to initiate stress-dose steroids P: no acute issues Quality Stroke Does the patient have a stroke diagnosis?: No VTE Prior VTE?: No VTE Risk Level:: Medical - moderate - high VTE Device Contraindication: N/A - Device Ordered VTE Drug Contraindication: N/A - Med Ordered
[2023-08-19 09:10] LABS: PTT Heparin Drip 129.4 SEC (53-77.9)
[2023-08-19 09:49] LABS: Hematocrit 32.3 % (37.0-47.0); Hemoglobin 10.4 g/dl (12.0-16.0); Mean Corpuscular HGB Conc 32.2 g/dl (31.0-35.0); Mean Corpuscular Hemoglobin 29.8 pg (27.0-33.0); Mean Corpuscular Volume 92.6 fL (80.0-98.0); Mean Platelet Volume 10.8 fL (9.4-12.3); NRBC Pct Auto 0.2 /100WBC (0.0-0.2); Red Blood Count 3.49 X10*6/uL (4.20-5.50); Red Cell Distribution Width 14.3 % (11.0-16.0); White Blood Count 11.2 X10*3/uL (4.8-10.8)
[2023-08-19 09:50] LABS: Platelet Count 47 X10*3/uL (160-400)
[2023-08-19 09:59] LABS: PTT Heparin Drip 100.6 SEC (53-77.9)
[2023-08-19] MEDS: Calcium Chloride 1 GM/10 ML SYRINGE IVPUSH (10:06)
[2023-08-19 10:16] LABS: Alanine Aminotransferase 77 U/L (0-31); Albumin Level 3.6 g/dL (3.5-5.0); Alkaline Phosphatase 67 U/L (39-117); Anion Gap 20 (12-20); Aspartate Amino Transferase 194 U/L (5-31); Blood Urea Nitrogen 28 mg/dL (9-16); Calcium 7.2 mg/dL (8.4-10.2); Carbon Dioxide 22 mmol/L (22-29); Chloride 96 mmol/L (96-108); Creatinine Clr Calc Pharmacy 18.2; Estimated Glomerular Filt Rate 15; Glucose Random 122 mg/dL (60-115); Potassium 3.7 mmol/L (3.3-5.1); Sodium 134 mmol/L (135-145); Total Protein 6.2 g/dL (6.5-8.0)
[2023-08-19] MEDS: Magnesium Sulfate/D5W 1 GM/100 ML PIGGYBACK IV (10:21)
[2023-08-19 10:32] LABS: TSH reflex Free T4 1.21 uIU/mL (0.32-4.0)
[2023-08-19 10:50] LABS: Troponin-I High Sensitivity 6292.8 ng/L (<3.5-17.0)
[2023-08-19 11:21] LABS: Band Neutrophils Percent 49 % (3-5); Lymphocytes Absolute Manual 0.2 X10*3/uL (1.2-4.9); Lymphocytes Percent Manual 2 % (20-40); Metamyelocytes Absolute 0.4 X10*3/uL; Metamyelocytes Percent 4 %; Myelocytes Absolute 0.3 X10*/uL; Myelocytes Percent 3 %; Neutrophils Absolute Manual 10.2 X10*3/uL (2.0-8.3); Neutrophils Percent Manual 42 % (45-73); Nucleated Red Blood Cells 1 /100WBC (0-0)
[2023-08-19 11:26] LABS: Burr Cells 2+ (3-5) /OIF; Dohle Bodies PRESENT; Platelet Estimate DECREASED (NORMAL); Platelet Morphology Comment NORMAL; RBC Morphology NOTED; Schistocytes 1+ (0-2) /OIF; Toxic Vacuolation PRESENT
[2023-08-19] MEDS: Lactated Ringers 1,000 ML 150 ML IVCONT (12:30)
[2023-08-19] MEDS: Metoclopramide HCl 10 MG/2 ML VIAL 5 MG IVPUSH (14:44)
[2023-08-19] MEDS: Lidocaine 4 % Patch ADH..PATCH 2 PATCH TRANSDERMA (14:44)
[2023-08-19 14:52] LABS: Lactic Acid 6.2 mmol/L (0.5-2.0)
[2023-08-19 16:24] LABS: Reflex Lactate? Lactic Acid Added
[2023-08-19 16:28] LABS: Glucose, Whole Blood 59 mg/dL (60-115)
[2023-08-19] MEDS: Glucose Gel 15 GM GEL..GRAM. PO (16:40)
[2023-08-19 17:01] LABS: Glucose, Whole Blood 77 mg/dL (60-115)
--- NOTE | 2023-08-19 17:02 | P.CONGS_ITS ---
History of Present Illness Consult details Consult date: 08/19/23 Narrative: 75-year-old female with multiple medical problems including rheumatoid arthritis, monoclonal gammopathy, sarcoidosis, emphysema, admitted last night because of hypotension and sepsis. She apparently was clears yesterday and had a high fever. She states that she felt fine the night prior to that. She says that she did have what she thought was a head cold at bedtime but woke up with confusion and fever. Her family apparently brought her because she became increasingly confused. The H&P states that she had vomited twice at home She currently denies any abdominal pain. She says that she does have back pain but no other complaints at this time. She denies any nausea or vomiting She had been on pressors since yesterday because of her significant hypotension. Her blood pressure is much better tonight but in view of this pressor requirement, asked to consult because of an ultrasound of the abdomen showing edema the gallbladder wall. Review of Systems 2 Constitutional: Constitutional: Reports chills and Reports fever(s) Cardiovascular: Cardiovascular: Denies chest pain and Denies dyspnea Respiratory: Respiratory: Denies cough and Denies dyspnea Gastrointestinal: Gastrointestinal: Denies abdominal pain Genitourinary: Genitourinary: Denies difficulty voiding Musculoskeletal: Musculoskeletal: Reports back pain Neurologic: Comments: Was confused last night prior to admission PMFSH Past Medical History Medical History Xanthelasma Pulmonary nodules Mild recurrent major depression Emphysema lung Hip bursitis Depression Essential hypertension Family History Family History Mother Leukemia Father Diabetes Heart disease Brother Heart disease Other No family history of cancer Surgical History Surgical History Xanthelasma of lower eyelid History of coronary angiogram Hx of left knee surgery H/O cataract removal with insertion of prosthetic lens H/O laminectomy Carpal tunnel syndrome on both sides Social History Social History Household Members: Spouse Housing: House Are you a primary healthcare science specialist to a significant other at home: Yes (Son) Do you presently have visiting nurse or other home services: No Unable to assess alcohol history related to: Unknown Alcohol intake: current Alcohol intake frequency: holidays/special occasions only Alcohol type: wine Patient Tobacco Use Status: Former Tobacco user Tobacco use type: Cigarette e-Cigarette/Vaping Use: Never Used Second Hand Smoke Exposure: No Use of substances other than those prescribed or required for medical reasons: No Substance Use Type: Marijuana Currently Displaying Signs/Symptoms of Drug Intoxication Withdrawal: No Advance Directives: No Advance Directives Information Provided: No Do you have thoughts of harming others: None Do you have a plan to hurt others: No Plan Recently lost weight without trying: No Nutrition Risks: Acute nausea or vomiting x1 week Patient : No service: No Current occupational status: employed and retired Cognitive needs: No Hearing needs: No Vision needs: Yes (reading glasses) Meds Allergies Allergy/AdvReac Type Severity Reaction Status Date / Time [id number] Reductase Allergy Severe ANAPHYLACTI Verified 08/18/23 18:47 Inhibitor C [[id number] REDUCTASE INHIBITOR] Active Medications: Current Medications Acetaminophen (Acetaminophen 325 Mg Tablet) 650 mg PO Q6H PRN PRN Reason: Fever >101 Bupropion HCl (Bupropion Hcl Xl 150 Mg Tab.Er.24h) 150 mg PO DAILY [facility] Glucose (Glucose Gel 15 Gm Gel..Gram.) 15 gm PO Q15M PRN PRN Reason: per Hypoglycemia Standing Ord. Last Admin: 08/19/23 16:40 Dose: 15 gm Hydrocortisone Sodium Succinate (Hydrocortisone Sod Succ/Pf 100 Mg Vial) 50 mg IVPUSH Q8H [facility] Last Admin: 08/19/23 10:06 Dose: 50 mg Hydromorphone HCl (Hydromorphone Hcl 1 Mg/Ml Syringe) 1 mg IVPUSH Q4H PRN; Protocol PRN Reason: Pain, Moderate(Pain Scale 4-6) Last Admin: 08/19/23 14:18 Dose: 1 mg Norepinephrine Bitartrate (Levophed) 8 mg in 250 mls @ 0 mls/hr IV .Q0M [facility]; Protocol Last Titration: 08/19/23 08:49 Dose: Infused Vasopressin (Vasostrict) 20 unit in 100 mls @ 12 mls/hr IVCONT .Q8H20M [facility] Last Admin: 08/19/23 10:44 Dose: 0.04 unit/min, 12 mls/hr Piperacillin Sod/Tazobactam (Sod 3.375 gm/ Sodium Chloride) 50 mls @ 100 mls/hr IV Q6H [facility] Last Infusion: 08/19/23 15:34 Dose: Infused Norepinephrine Bitartrate 32 (mg/ Sodium Chloride) 250 mls @ 0 mls/hr IV .Q0M [facility]; Protocol Last Titration: 08/19/23 13:14 Dose: 0.57 mcg/kg/min, 24.18 mls/hr Sodium Bicarbonate 150 meq/ (Dextrose) 1,000 mls @ 100 mls/hr IV .Q10H [facility] Last Admin: 08/19/23 17:01 Dose: 100 mls/hr Lidocaine (Lidocaine 4 % Patch Adh..Patch) 2 patch TRANSDERMA DAILY [facility]; Protocol Last Admin: 08/19/23 14:44 Dose: 2 patch Ondansetron HCl (Ondansetron Hcl 4 Mg/2 Ml Vial) 4 mg IVPUSH Q6H PRN PRN Reason: Nausea and Vomiting Last Admin: 08/19/23 10:18 Dose: 4 mg Pharmacy Consult (Consult Rx Vancomycin Dosing) 1 each MISCELLANE DAILY PRN PRN Reason: Consult order Home Medications Medication Instructions Recorded Confirmed Last Taken Type clopidogrel 75 mg tablet (Plavix) 75 mg PO DAILY 06/28/20 08/19/23 Unknown History alirocumab 150 mg/mL subcutaneous 150 mg subcut Q2W 06/17/22 08/19/23 Unknown History pen injector (Praluent Pen) Physical Exam 2 Vital Signs: Vital Signs: Last Vital Signs Temp 98.6 F 08/19/23 16:00 Pulse 101 H 08/19/23 16:00 Resp 17 08/19/23 16:00 BP 106/56 L 08/19/23 16:00 Pulse Ox 94 08/19/23 16:00 O2 Del Method Nasal Cannula 08/19/23 15:00 O2 Flow Rate 10 08/19/23 16:00 BMI result Body Mass Index 32.2 Const: Other: Answered questions well General: comfortable Orientation/consciousness: patient oriented x3 Resp: Effort & Inspection: normal respiratory effort Cardio: Rate: tachycardic GI: Other: No Oviedo's sign Palpation (GI): Soft to palpation, not firm, nontender and no guarding Skin: Other: Has some skin mottling, no evidence of cellulitis or abscess Neuro: General: patient oriented x3 Extrem: General: No no pedal edema Results Labs 08/21/23 05:10 08/21/23 05:10 Labs: Abnormal lab results 08/18/23 08/18/23 08/18/23 Range/Units 20:18 20:34 21:45 WBC (4.8-10.8) X10*3/uL RBC (4.20-5.50) X10*6/uL Hgb (12.0-16.0) g/dl Hct (37.0-47.0) % Plt Count 133 L D (160-400) X10*3/uL Neut % (Auto) 93.8 H (45-73) % Lymph % (Auto) 5.4 L (20-40) % Warren % (Auto) 0.2 L (2-11) % Lymph # (Auto) 0.3 L (1.2-4.9) X10*3/uL Warren # (Auto) 0.0 L (0.1-1.2) X10*3/uL Absolute Nucleated RBC (0.0-0.012) X10*3/uL Neutrophils % (Manual) (45-73) % Band Neutrophils % (3-5) % Lymphocytes % (Manual) (20-40) % Abs Neuts (Manual) (2.0-8.3) X10*3/uL Lymphocytes # (Manual) (1.2-4.9) X10*3/uL Nucleated RBCs (0-0) /100WBC aPTT Heparin Protocol (53-77.9) SEC VBG pH (7.32-7.43) VBG HCO3 (22-26) mmol/L Sodium 133 L (135-145) mmol/L Carbon Dioxide 21 L (22-29) mmol/L Anion Gap (12-20) BUN 21 H (9-16) mg/dL Creatinine 2.52 H (0.5-1.4) mg/dL POC Glucose (60-115) mg/dL Random Glucose (60-115) mg/dL Lactic Acid 7.5 H* 6.2 H* (0.5-2.0) mmol/L Lactic Acid F/U @ 2Hr (0.5-2.0) mmol/L Lactic Acid F/U @ 4Hr (0.5-2.0) mmol/L Calcium (8.4-10.2) mg/dL Phosphorus (2.7-4.5) mg/dL Magnesium 1.2 L* 1.2 L* (1.6-2.6) mg/dL AST 64 H (5-31) U/L ALT (0-31) U/L Troponin I High Sens 2841.4 H* 6229.2 H* D (<3.5-17.0) ng/L Total Protein (6.5-8.0) g/dL Albumin 3.4 L (3.5-5.0) g/dL Lipase 84 H (8-78) U/L Urine Blood Trace H (Negative) Urine RBC 6-10 H (0-2) /HPF 08/18/23 08/18/23 08/19/23 Range/Units 23:14 23:15 01:38 WBC (4.8-10.8) X10*3/uL RBC 3.76 L (4.20-5.50) X10*6/uL Hgb 11.3 L (12.0-16.0) g/dl Hct 34.7 L (37.0-47.0) % Plt Count 68 L D (160-400) X10*3/uL Neut % (Auto) (45-73) % Lymph % (Auto) (20-40) % Warren % (Auto) (2-11) % Lymph # (Auto) (1.2-4.9) X10*3/uL [place] # (Auto) (0.1-1.2) X10*3/uL Absolute Nucleated RBC (0.0-0.012) X10*3/uL Neutrophils % (Manual) 44 L (45-73) % Band Neutrophils % 45 H (3-5) % Lymphocytes % (Manual) (20-40) % Abs Neuts (Manual) (2.0-8.3) X10*3/uL Lymphocytes # (Manual) (1.2-4.9) X10*3/uL Nucleated RBCs (0-0) /100WBC aPTT Heparin Protocol 47.7 L (53-77.9) SEC VBG pH (7.32-7.43) VBG HCO3 (22-26) mmol/L Sodium 131 L (135-145) mmol/L Carbon Dioxide 15 L (22-29) mmol/L Anion Gap 21 H (12-20) BUN 24 H (9-16) mg/dL Creatinine 2.90 H (0.5-1.4) mg/dL POC Glucose (60-115) mg/dL Random Glucose 55 L* (60-115) mg/dL Lactic Acid (0.5-2.0) mmol/L Lactic Acid F/U @ 2Hr 7.8 H* (0.5-2.0) mmol/L Lactic Acid F/U @ 4Hr 6.9 H* (0.5-2.0) mmol/L Calcium 7.5 L D (8.4-10.2) mg/dL Phosphorus 5.1 H (2.7-4.5) mg/dL Magnesium 1.5 L (1.6-2.6) mg/dL AST 123 H (5-31) U/L ALT 45 H (0-31) U/L Troponin I High Sens 7498.8 H* (<3.5-17.0) ng/L Total Protein (6.5-8.0) g/dL Albumin (3.5-5.0) g/dL Lipase (8-78) U/L Urine Blood (Negative) Urine RBC (0-2) /HPF 08/19/23 08/19/23 08/19/23 Range/Units 04:38 04:42 06:16 WBC (4.8-10.8) X10*3/uL RBC 3.62 L (4.20-5.50) X10*6/uL Hgb 10.9 L (12.0-16.0) g/dl Hct 33.9 L (37.0-47.0) % Plt Count 56 L (160-400) X10*3/uL Neut % (Auto) (45-73) % Lymph % (Auto) (20-40) % Warren % (Auto) (2-11) % Lymph # (Auto) (1.2-4.9) X10*3/uL [place] # (Auto) (0.1-1.2) X10*3/uL Absolute Nucleated RBC 0.020 H (0.0-0.012) X10*3/uL Neutrophils % (Manual) (45-73) % Band Neutrophils % 41 H (3-5) % Lymphocytes % (Manual) 2 L (20-40) % Abs Neuts (Manual) (2.0-8.3) X10*3/uL Lymphocytes # (Manual) 0.2 L (1.2-4.9) X10*3/uL Nucleated RBCs (0-0) /100WBC aPTT Heparin Protocol 151.7 H* D (53-77.9) SEC VBG pH 7.17 L* (7.32-7.43) VBG HCO3 15 L (22-26) mmol/L Sodium 130 L (135-145) mmol/L Carbon Dioxide 15 L (22-29) mmol/L Anion Gap (12-20) BUN 26 H (9-16) mg/dL Creatinine 2.99 H (0.5-1.4) mg/dL POC Glucose (60-115) mg/dL Random Glucose (60-115) mg/dL Lactic Acid (0.5-2.0) mmol/L Lactic Acid F/U @ 2Hr (0.5-2.0) mmol/L Lactic Acid F/U @ 4Hr (0.5-2.0) mmol/L Calcium 7.0 L D (8.4-10.2) mg/dL Phosphorus (2.7-4.5) mg/dL Magnesium (1.6-2.6) mg/dL AST 148 H (5-31) U/L ALT 55 H (0-31) U/L Troponin I High Sens (<3.5-17.0) ng/L Total Protein 6.0 L (6.5-8.0) g/dL Albumin 3.2 L (3.5-5.0) g/dL Lipase 93 H (8-78) U/L Urine Blood (Negative) Urine RBC (0-2) /HPF 08/19/23 08/19/23 08/19/23 Range/Units 07:43 09:18 14:22 WBC 11.2 H (4.8-10.8) X10*3/uL RBC 3.49 L (4.20-5.50) X10*6/uL Hgb 10.4 L (12.0-16.0) g/dl Hct 32.3 L (37.0-47.0) % Plt Count 47 L (160-400) X10*3/uL Neut % (Auto) (45-73) % Lymph % (Auto) (20-40) % Warren % (Auto) (2-11) % Lymph # (Auto) (1.2-4.9) X10*3/uL Warren # (Auto) (0.1-1.2) X10*3/uL Absolute Nucleated RBC 0.020 H (0.0-0.012) X10*3/uL Neutrophils % (Manual) 42 L (45-73) % Band Neutrophils % 49 H (3-5) % Lymphocytes % (Manual) 2 L (20-40) % Abs Neuts (Manual) 10.2 H (2.0-8.3) X10*3/uL Lymphocytes # (Manual) 0.2 L (1.2-4.9) X10*3/uL Nucleated RBCs 1 H (0-0) /100WBC aPTT Heparin Protocol 129.4 H* 100.6 H D (53-77.9) SEC VBG pH (7.32-7.43) VBG HCO3 (22-26) mmol/L Sodium 134 L (135-145) mmol/L Carbon Dioxide (22-29) mmol/L Anion Gap (12-20) BUN 28 H (9-16) mg/dL Creatinine 3.11 H (0.5-1.4) mg/dL POC Glucose (60-115) mg/dL Random Glucose 122 H (60-115) mg/dL Lactic Acid 6.2 H* (0.5-2.0) mmol/L Lactic Acid F/U @ 2Hr (0.5-2.0) mmol/L Lactic Acid F/U @ 4Hr (0.5-2.0) mmol/L Calcium 7.2 L (8.4-10.2) mg/dL Phosphorus (2.7-4.5) mg/dL Magnesium (1.6-2.6) mg/dL AST 194 H (5-31) U/L ALT 77 H (0-31) U/L Troponin I High Sens 6292.8 H* (<3.5-17.0) ng/L Total Protein 6.2 L (6.5-8.0) g/dL Albumin (3.5-5.0) g/dL Lipase (8-78) U/L Urine Blood (Negative) Urine RBC (0-2) /HPF 08/19/23 Range/Units 16:24 WBC (4.8-10.8) X10*3/uL RBC (4.20-5.50) X10*6/uL Hgb (12.0-16.0) g/dl Hct (37.0-47.0) % Plt Count (160-400) X10*3/uL Neut % (Auto) (45-73) % Lymph % (Auto) (20-40) % Warren % (Auto) (2-11) % Lymph # (Auto) (1.2-4.9) X10*3/uL Warren # (Auto) (0.1-1.2) X10*3/uL Absolute Nucleated RBC (0.0-0.012) X10*3/uL Neutrophils % (Manual) (45-73) % Band Neutrophils % (3-5) % Lymphocytes % (Manual) (20-40) % Abs Neuts (Manual) (2.0-8.3) X10*3/uL Lymphocytes # (Manual) (1.2-4.9) X10*3/uL Nucleated RBCs (0-0) /100WBC aPTT Heparin Protocol (53-77.9) SEC VBG pH (7.32-7.43) VBG HCO3 (22-26) mmol/L Sodium (135-145) mmol/L Carbon Dioxide (22-29) mmol/L Anion Gap (12-20) BUN (9-16) mg/dL Creatinine (0.5-1.4) mg/dL POC Glucose 59 L* (60-115) mg/dL Random Glucose (60-115) mg/dL Lactic Acid (0.5-2.0) mmol/L Lactic Acid F/U @ 2Hr (0.5-2.0) mmol/L Lactic Acid F/U @ 4Hr (0.5-2.0) mmol/L Calcium (8.4-10.2) mg/dL Phosphorus (2.7-4.5) mg/dL Magnesium (1.6-2.6) mg/dL AST (5-31) U/L ALT (0-31) U/L Troponin I High Sens (<3.5-17.0) ng/L Total Protein (6.5-8.0) g/dL Albumin (3.5-5.0) g/dL Lipase (8-78) U/L Urine Blood (Negative) Urine RBC (0-2) /HPF Short CBC 08/18/23 08/19/23 08/19/23 Range/Units 20:18 01:38 04:38 WBC 5.0 5.1 8.3 (4.8-10.8) X10*3/uL Hgb 13.1 11.3 L 10.9 L (12.0-16.0) g/dl Hct 40.1 34.7 L 33.9 L (37.0-47.0) % Plt Count 133 L D 68 L D 56 L (160-400) X10*3/uL 08/19/23 Range/Units 09:18 WBC 11.2 H (4.8-10.8) X10*3/uL Hgb 10.4 L (12.0-16.0) g/dl Hct 32.3 L (37.0-47.0) % Plt Count 47 L (160-400) X10*3/uL BMP 08/18/23 08/19/23 08/19/23 20:18 01:38 04:38 Sodium 133 L 131 L 130 L Potassium 3.7 3.6 3.5 Chloride 97 99 100 Carbon Dioxide 21 L 15 L 15 L BUN 21 H 24 H 26 H Creatinine 2.52 H 2.90 H 2.99 H Calcium 8.7 D 7.5 L D 7.0 L D 08/19/23 09:18 Sodium 134 L Potassium 3.7 Chloride 96 Carbon Dioxide 22 BUN 28 H Creatinine 3.11 H Calcium 7.2 L Liver Function 08/18/23 08/19/23 08/19/23 Range/Units 20:18 01:38 04:38 Total Bilirubin 0.4 0.7 0.8 (0.0-1.0) mg/dL Direct Bilirubin 0.1 (0.0-0.5) mg/dL AST 64 H 123 H 148 H (5-31) U/L ALT 28 45 H 55 H (0-31) U/L Alkaline Phosphatase 70 85 81 (39-117) U/L Albumin 3.4 L 3.6 3.2 L (3.5-5.0) g/dL 08/19/23 Range/Units 09:18 Total Bilirubin 1.0 (0.0-1.0) mg/dL Direct Bilirubin (0.0-0.5) mg/dL AST 194 H (5-31) U/L ALT 77 H (0-31) U/L Alkaline Phosphatase 67 (39-117) U/L Albumin 3.6 (3.5-5.0) g/dL Urine 08/18/23 Range/Units 20:34 Urine Color Yellow Urine Appearance Clear Urine pH 6.0 (5.0-9.0) Ur Specific [place] 1.010 (1.005-1.025) Urine Protein Negative (Neg-Trace) mg/dL Urine Glucose (UA) Negative (Negative) mg/dL All other labs normal. Laboratory Results WBC 11.2 X10*3/uL (4.8-10.8) H 08/19/23 09:18 RBC 3.49 X10*6/uL (4.20-5.50) L 08/19/23 09:18 Hgb 10.4 g/dl (12.0-16.0) L 08/19/23 09:18 Hct 32.3 % (37.0-47.0) L 08/19/23 09:18 MCV 92.6 fL (80.0-98.0) 08/19/23 09:18 MCH 29.8 pg (27.0-33.0) 08/19/23 09:18 MCHC 32.2 g/dl (31.0-35.0) 08/19/23 09:18 RDW 14.3 % (11.0-16.0) 08/19/23 09:18 Plt Count 47 X10*3/uL (160-400) L 08/19/23 09:18 MPV 10.8 fL (9.4-12.3) 08/19/23 09:18 Immature Gran % (Auto) Cancelled 08/19/23 09:18 Neut % (Auto) Cancelled 08/19/23 09:18 Lymph % (Auto) Cancelled 08/19/23 09:18 Warren % (Auto) Cancelled 08/19/23 09:18 Eos % (Auto) Cancelled 08/19/23 09:18 Baso % (Auto) Cancelled 08/19/23 09:18 Lymph # (Auto) Cancelled 08/19/23 09:18 Warren # (Auto) Cancelled 08/19/23 09:18 Eos # (Auto) Cancelled 08/19/23 09:18 Baso # (Auto) Cancelled 08/19/23 09:18 Abs Immat Gran (auto) Cancelled 08/19/23 09:18 Absolute Neuts (auto) Cancelled 08/19/23 09:18 Absolute Nucleated RBC 0.020 X10*3/uL (0.0-0.012) H 08/19/23 09:18 Nucleated RBC % (auto) 0.2 /100WBC (0.0-0.2) 08/19/23 09:18 Neutrophils % (Manual) 42 % (45-73) L 08/19/23 09:18 Band Neutrophils % 49 % (3-5) H 08/19/23 09:18 Lymphocytes % (Manual) 2 % (20-40) L 08/19/23 09:18 Metamyelocytes % 4 % 08/19/23 09:18 Myelocytes % 3 % 08/19/23 09:18 Abs Neuts (Manual) 10.2 X10*3/uL (2.0-8.3) H 08/19/23 09:18 Lymphocytes # (Manual) 0.2 X10*3/uL (1.2-4.9) L 08/19/23 09:18 Metamyelocytes # 0.4 X10*3/uL 08/19/23 09:18 Myelocytes # 0.3 X10*/uL 08/19/23 09:18 Nucleated RBCs 1 /100WBC (0-0) H 08/19/23 09:18 Toxic Granulation PRESENT 08/19/23 04:38 Toxic Vacuolation PRESENT 08/19/23 09:18 Dohle Bodies PRESENT 08/19/23 09:18 Platelet Estimate DECREASED (NORMAL) 08/19/23 09:18 Large Platelets PRESENT 08/19/23 04:38 Plt Morphology Comment NORMAL 08/19/23 09:18 RBC Morphology NOTED 08/19/23 09:18 Spherocytes 1+ (0-2) /OIF 08/19/23 04:38 Deon Cells 2+ (3-5) /OIF 08/19/23 09:18 Acanthocytes (Spur) 1+ (0-2) /OIF 08/19/23 04:38 Rouleaux PRESENT 08/19/23 04:38 Schistocytes 1+ (0-2) /OIF 08/19/23 09:18 Smear Tech's Comments VERIFIED 08/18/23 20:18 PT 12.5 SEC (11.1-13.3) 08/18/23 20:18 INR 1.0 (0.9-1.1) 08/18/23 20:18 APTT 29.2 SEC (26.0-36.4) 08/18/23 20:18 aPTT Heparin Protocol 100.6 SEC (53-77.9) H D 08/19/23 09:18 VBG pH 7.17 (7.32-7.43) L* 08/19/23 04:42 VBG pCO2 39 mmHg 08/19/23 04:42 VBG pO2 51 mmHg 08/19/23 04:42 VBG HCO3 15 mmol/L (22-26) L 08/19/23 04:42 VBG O2 Saturation 76.0 % 08/19/23 04:42 VBG Base Excess -12.6 mmol/L 08/19/23 04:42 Sodium 134 mmol/L (135-145) L 08/19/23 09:18 Potassium 3.7 mmol/L (3.3-5.1) 08/19/23 09:18 Chloride 96 mmol/L (96-108) 08/19/23 09:18 Carbon Dioxide 22 mmol/L (22-29) 08/19/23 09:18 Anion Gap 20 (12-20) 08/19/23 09:18 BUN 28 mg/dL (9-16) H 08/19/23 09:18 Creatinine 3.11 mg/dL (0.5-1.4) H 08/19/23 09:18 Estim Creat Clear Calc 18.2 08/19/23 09:18 Estimated GFR 15 08/19/23 09:18 POC Glucose 77 mg/dL (60-115) 08/19/23 16:58 Random Glucose 122 mg/dL (60-115) H 08/19/23 09:18 Lactic Acid 6.2 mmol/L (0.5-2.0) H* 08/19/23 14:22 Lactic Acid F/U @ 2Hr 7.8 mmol/L (0.5-2.0) H* 08/18/23 23:14 Lactic Acid F/U @ 4Hr 6.9 mmol/L (0.5-2.0) H* 08/19/23 01:38 Calcium 7.2 mg/dL (8.4-10.2) L 08/19/23 09:18 Phosphorus 5.1 mg/dL (2.7-4.5) H 08/19/23 01:38 Magnesium 1.5 mg/dL (1.6-2.6) L 08/19/23 01:38 Total Bilirubin 1.0 mg/dL (0.0-1.0) 08/19/23 09:18 Direct Bilirubin 0.1 mg/dL (0.0-0.5) 08/18/23 20:18 AST 194 U/L (5-31) H 08/19/23 09:18 ALT 77 U/L (0-31) H 08/19/23 09:18 Alkaline Phosphatase 67 U/L (39-117) 08/19/23 09:18 Ammonia 18 umol/L (13-55) 08/18/23 20:21 Troponin I High Sens 6292.8 ng/L (<3.5-17.0) H* 08/19/23 09:18 Total Protein 6.2 g/dL (6.5-8.0) L 08/19/23 09:18 Albumin 3.6 g/dL (3.5-5.0) 08/19/23 09:18 Lipase 93 U/L (8-78) H 08/19/23 04:38 TSH 1.21 uIU/mL (0.32-4.0) 08/19/23 09:18 Urine Color Yellow 08/18/23 20:34 Urine Appearance Clear 08/18/23 20:34 Urine pH 6.0 (5.0-9.0) 08/18/23 20:34 Ur Specific [place] 1.010 (1.005-1.025) 08/18/23 20:34 Urine Protein Negative mg/dL (Neg-Trace) 08/18/23 20:34 Urine Glucose (UA) Negative mg/dL (Negative) 08/18/23 20:34 Urine Ketones Negative mg/dL (Negative) 08/18/23 20:34 Urine Blood Trace (Negative) H 08/18/23 20:34 Urine Nitrite Negative (Negative) 08/18/23 20:34 Ur Leukocyte Esterase Negative (Negative) 08/18/23 20:34 Urine RBC 6-10 /HPF (0-2) H 08/18/23 20:34 Urine WBC 0-5 /HPF (0-5) 08/18/23 20:34 Ur Squamous Epith Cells 0-2 /HPF (0-2) 08/18/23 20:34 Urine Bacteria None Seen (None Seen) 08/18/23 20:34 Hyaline Casts 0-2 /LPF (0-2) 08/18/23 20:34 Ethyl Alcohol < 10 mg/dL 08/18/23 20:18 Respiratory Panel Kunz Cancelled 08/19/23 01:38 Adenovirus (Rapid PCR) Cancelled 08/19/23 01:38 B.pert (TEM-PCR) Cancelled 08/19/23 01:38 B.parapertussis DNA PCR Cancelled 08/19/23 01:38 C. pneumoniae DNA (PCR) Cancelled 08/19/23 01:38 Coronavirus OC43 (PCR) Cancelled 08/19/23 01:38 Coronavirus HKU1 (PCR) Cancelled 08/19/23 01:38 Coronavirus 229E (PCR) Cancelled 08/19/23 01:38 COVID-19 (RAJ) Negative (Negative) 08/18/23 20:22 COVID-19 Clin Com See Note 08/18/23 20:22 Coronavirus NL63 (PCR) Cancelled 08/19/23 01:38 Human Metapneumovir PCR Cancelled 08/19/23 01:38 Influenza Type A (IVANA) Negative (Negative) 08/18/23 20:22 Influenza A (RT-PCR) Cancelled 08/19/23 01:38 Influenza Type B (IVANA) Negative (Negative) 08/18/23 20:22 Influenza B (RT-PCR) Cancelled 08/19/23 01:38 Influenza A & B Note See Note 08/18/23 20:22 M. pneumoniae (PCR) Cancelled 08/19/23 01:38 Parainfluenza 1 (PCR) Cancelled 08/19/23 01:38 Parainfluenza 2 (PCR) Cancelled 08/19/23 01:38 Parainfluenza 3 (PCR) Cancelled 08/19/23 01:38 Parainfluenza 4 (PCR) Cancelled 08/19/23 01:38 RSV (PCR) Cancelled 08/19/23 01:38 Entero/Rhino (PCR) Cancelled 08/19/23 01:38 SARS-CoV-2 RNA (RT-PCR) Cancelled 08/19/23 01:38 Impressions Abdomen/Pelvis CT 08/18/23 21:57 IMPRESSION: 1. Acute uncomplicated pancreatitis involving the pancreatic tail. 2. Other incidental findings as described above including periportal edema, left femoral artery stent and degenerative changes in the spine. Fleischner guidelines were followed. Chest CTA 08/18/23 21:57 IMPRESSION: 1. No evidence of pulmonary emboli. 2. No evidence of aortic dissection. 3. New cluster of tree-in-bud opacities in the left upper lobe laterally consistent with airway/inflammatory disease. 4. Other incidental findings as described above. VTE: negative. According to the UPDATED 2017 Fleischner Society recommendations, the advised follow-up imaging for a single 6-8 mm solid nodule is follow-up CT at 6 to 12 months. In high-risk patients, subsequent CT follow-up at 18 to 24 months is recommended. In low-risk patients, subsequent CT follow-up at 18 to 24 months is optional. . Head CT 08/18/23 22:00 IMPRESSION: No acute intracranial pathology. Chest X-Ray 08/18/23 23:42 IMPRESSION: Right IJ line with tip in mid to distal SVC. No pneumothorax is seen. Abdomen Ultrasound 08/19/23 14:41 IMPRESSION: 1. Grossly abnormal gallbladder with markedly thickened wall containing fluid. No gallstones are seen and Oviedo's sign is negative. Trace ascites is seen. 2. Incidental note made of cirrhotic appearance of the liver. Assessment and Plan (1) Septic shock due to Gram positive bacteria: Status: Acute I have reviewed her imaging studies including her CAT scan had ultrasound. Her ultrasound report reads gallbladder wall. There are no stones seen. This may be a consequence of aggressive fluid resuscitation and acute illness as well. She does not have any significant tenderness or O[place]iedo's sign at all. Her abdominal exam is very benign. Her CAT scan does not show any inflammatory changes in or surrounding the gallbladder, no pericholecystic fluid and no marked distension. Her culture showed Gram-positive bacteremia. It is unlikely this time that this is from an intra-abdominal source. Again, I do not feel that the gallbladder is the source of her bacteremia. She has a very benign exam. However, if there is any further concern about this, can proceed with cholecystostomy tube with the interventional radiologist. She had a surgical candidate at this time. She is also immunosuppressed, so she may be sicker regardless of the etiology of her infection. I do not identify any sources of infection on the skin. She appears to be on adequate antibiotic coverage. I had a long discussion with her son as well as with the finisher plate with regards to above. I will follow again and will decide in the morning whether to send her for IR cholecystostomy or not. We will follow along closely. Procedures Date of Service Date of Service: 08/21/23
[2023-08-19] MEDS: buPROPion HCl XL 150 MG TAB.ER.24H PO (17:03)
[2023-08-19 17:12] LABS: ~Lactic Acid-LAB USE ONLY 5.7 mmol/L (0.5-2.0)
[2023-08-19 18:52] LABS: NRBC Pct Auto 0.1 /100WBC (0.0-0.2); PLT CLUMP 1
[2023-08-19 18:54] LABS: Hemoglobin 10.7 g/dl (12.0-16.0); Mean Corpuscular HGB Conc 33.4 g/dl (31.0-35.0); Mean Corpuscular Hemoglobin 30.7 pg (27.0-33.0); Mean Corpuscular Volume 91.7 fL (80.0-98.0); Mean Platelet Volume 10.4 fL (9.4-12.3); Red Blood Count 3.49 X10*6/uL (4.20-5.50); Red Cell Distribution Width 14.2 % (11.0-16.0)
[2023-08-19 18:54] LABS: Reflex Lactate? 2 Y
[2023-08-19 19:07] LABS: Platelet Count 45 X10*3/uL (160-400); WBC ABN SCTR FOR CBC 1; White Blood Count 17.4 X10*3/uL (4.8-10.8)
[2023-08-19] MEDS: cefEPime HCl 2 GM in 0.9 % Sodium Chloride 50 ML IV (19:28)
[2023-08-19 19:34] LABS: Band Neutrophils Percent 44 % (3-5); Lymphocytes Absolute Manual 0.2 X10*3/uL (1.2-4.9); Lymphocytes Percent Manual 1 % (20-40); Metamyelocytes Percent 6 %; Myelocytes Absolute 1.6 X10*/uL; Myelocytes Percent 9 %; Neutrophils Absolute Manual 14.6 X10*3/uL (2.0-8.3); Neutrophils Percent Manual 40 % (45-73)
[2023-08-19 19:37] LABS: Burr Cells 1+ (0-2) /OIF; RBC Morphology NOTED; Schistocytes 1+ (0-2) /OIF; Tear Drop Cells 1+ (0-2) /OIF
[2023-08-19 19:38] LABS: Dohle Bodies PRESENT; Platelet Estimate DECREASED (NORMAL); Platelet Morphology Comment NORMAL; Toxic Granulation PRESENT; Toxic Vacuolation PRESENT
[2023-08-19 19:39] LABS: ~Lactic Acid-LAB USE ONLY 4.7 mmol/L (0.5-2.0)
[2023-08-19] MEDS: metroNIDAZOLE/NS 500 MG/100 ML PIGGYBACK 100 MG IV (20:10)
[2023-08-20] VITALS (51 sets, daily range): BP systolic 102–164; BP diastolic 46–97; PULSE 100–135; RESP 13–34; TEMP 38–39.5; O2SAT 86–95; BMI 36.0
[2023-08-20] MEDS: Acetaminophen 325 MG TABLET 650 MG PO ×2 (01:57→13:42)
[2023-08-20] MEDS: Vasopressin 20 UNIT/100 ML INFUS..BTL 12 UNIT IVCONT ×4 (01:58→23:34)
[2023-08-20] MEDS: Hydrocortisone Sod Succ/PF 100 MG VIAL 50 MG IVPUSH ×3 (02:00→17:08)
[2023-08-20] MEDS: cefEPime HCl 2 GM in 0.9 % Sodium Chloride 50 ML IV ×3 (02:07→18:36)
[2023-08-20] MEDS: Sodium Bicarbonate 8.4% 150 MEQ in Dextrose 5 % 850 ML 100 MEQ IV ×3 (02:38→22:28)
[2023-08-20] MEDS: metroNIDAZOLE/NS 500 MG/100 ML PIGGYBACK 100 MG IV ×3 (02:40→18:36)
[2023-08-20] MEDS: HYDROmorphone HCl 1 MG/ML SYRINGE IVPUSH ×5 (03:49→23:46)
[2023-08-20] MEDS: ondansetron HCL 4 MG/2 ML VIAL IVPUSH ×2 (04:31→19:24)
[2023-08-20 05:14] LABS: VBG Base Excess 0.2 mmol/L; VBG HCO3 25 mmol/L (22-26); VBG pCO2 42 mmHg; VBG pH 7.38 (7.32-7.43); VBG pO2 53 mmHg
[2023-08-20 05:16] LABS: Venous Blood Gas Refer to POC result
[2023-08-20 05:40] LABS: NRBC Pct Auto 0.1 /100WBC (0.0-0.2); PLT CLUMP 1; Red Cell Distribution Width 14.2 % (11.0-16.0); WBC ABN SCTR FOR CBC 1
[2023-08-20 05:42] LABS: Hematocrit 29.3 % (37.0-47.0); Hemoglobin 9.9 g/dl (12.0-16.0); Mean Corpuscular HGB Conc 33.8 g/dl (31.0-35.0); Mean Corpuscular Hemoglobin 30.7 pg (27.0-33.0); Mean Corpuscular Volume 90.7 fL (80.0-98.0); Mean Platelet Volume 10.8 fL (9.4-12.3); Red Blood Count 3.23 X10*6/uL (4.20-5.50)
[2023-08-20 05:43] LABS: Platelet Count 41 X10*3/uL (160-400); White Blood Count 20.8 X10*3/uL (4.8-10.8)
[2023-08-20 06:00] LABS: Lactic Acid 4.3 mmol/L (0.5-2.0)
[2023-08-20 06:04] LABS: Alanine Aminotransferase 225 U/L (0-31); Albumin Level 3.5 g/dL (3.5-5.0); Alkaline Phosphatase 61 U/L (39-117); Anion Gap 23 (12-20); Aspartate Amino Transferase 452 U/L (5-31); Bilirubin Total 1.2 mg/dL (0.0-1.0); Blood Urea Nitrogen 40 mg/dL (9-16); Calcium 7.1 mg/dL (8.4-10.2); Carbon Dioxide 22 mmol/L (22-29); Chloride 89 mmol/L (96-108); Creatinine Clr Calc Pharmacy 15.9; Estimated Glomerular Filt Rate 12; Glucose Random 97 mg/dL (60-115); Potassium 4.4 mmol/L (3.3-5.1); Sodium 130 mmol/L (135-145); Total Protein 6.2 g/dL (6.5-8.0)
[2023-08-20 06:05] LABS: Band Neutrophils Percent 51 % (3-5); Metamyelocytes Absolute 2.3 X10*3/uL; Metamyelocytes Percent 11 %; Myelocytes Absolute 0.6 X10*/uL; Myelocytes Percent 3 %; Neutrophils Absolute Manual 17.9 X10*3/uL (2.0-8.3); Neutrophils Percent Manual 35 % (45-73)
[2023-08-20 06:07] LABS: Acanthocytes 1+ (0-2) /OIF; Platelet Estimate DECREASED (NORMAL); Platelet Morphology Comment NORMAL; RBC Morphology NOTED; Schistocytes 1+ (0-2) /OIF
[2023-08-20 06:08] LABS: Dohle Bodies PRESENT; Spherocytes 1+ (0-2) /OIF; Toxic Granulation PRESENT; Toxic Vacuolation PRESENT
[2023-08-20 07:37] LABS: Reflex Lactate? Lactic Acid Added
--- NOTE | 2023-08-20 08:06 | P.PNCC_ITS ---
Subjective Subjective Date of Service: 08/20/23 Interval History: no significant overnight events; clinical status remains critical and guarded Critical Care Time (minutes): 90 Physical Exam 2 Vital Signs: Vital Signs: Last Vital Signs Temp 101.3 F H 08/20/23 07:00 Pulse 112 H 08/20/23 07:00 Resp 16 08/20/23 07:44 BP 104/46 L 08/20/23 07:00 Pulse Ox 86 L 08/20/23 07:00 O2 Del Method Nasal Cannula 08/20/23 06:00 O2 Flow Rate 14 08/20/23 07:00 BMI result Body Mass Index 36.0 Const: General: well developed, alert and awake Orientation/consciousness: patient oriented x3 HEENT: Head: Yes normal to inspection, Yes normocephalic and Yes atraumatic Eyes: General: appearance normal, both eyes and all related structures Neck: Neck: Yes normal visual inspection, Yes full ROM, Yes no meningeal signs and Yes supple Chest: Chest palpation & inspection: normal inspection of the chest Resp: Other: some rhonchi; no appreciable rales, wheezing Cardio: Rate: tachycardic Rhythm: regular rhythm GI: Other: no appreciable tenderness right upper quadrant Inspection: Yes normal to inspection, No Abdominal wall edema and No distended Palpation (GI): Soft to palpation, not firm, nontender, no guarding and not rigid Skin: General skin exam: no rashes or lesions noted Neuro: General: patient oriented x3, tone normal, moves all extremities, no meningeal signs and no focal motor deficits Extrem: Other: 1+ pitting edema bilateral knees; apprec iable purpura throughout; capilary refill greater than 2 seconds Psych: Appearance: grossly normal Objective Data Labs 08/20/23 05:06 08/20/23 05:07 Labs: Laboratory Results - last 24 hr 08/19/23 08/19/23 08/19/23 01:38 07:43 09:18 WBC 11.2 H RBC 3.49 L Hgb 10.4 L Hct 32.3 L MCV 92.6 MCH 29.8 MCHC 32.2 RDW 14.3 Plt Count 47 L MPV 10.8 Immature Gran % (Auto) Cancelled Neut % (Auto) Cancelled Lymph % (Auto) Cancelled [place] % (Auto) Cancelled Eos % (Auto) Cancelled Baso % (Auto) Cancelled Lymph # (Auto) Cancelled [place] # (Auto) Cancelled Eos # (Auto) Cancelled Baso # (Auto) Cancelled Abs Immat Gran (auto) Cancelled Absolute Neuts (auto) Cancelled Absolute Nucleated RBC 0.020 H Nucleated RBC % (auto) 0.2 Neutrophils % (Manual) 42 L Band Neutrophils % 49 H Lymphocytes % (Manual) 2 L Metamyelocytes % 4 Myelocytes % 3 Abs Neuts (Manual) 10.2 H Lymphocytes # (Manual) 0.2 L Metamyelocytes # 0.4 Myelocytes # 0.3 Nucleated RBCs 1 H Toxic Granulation Toxic Vacuolation PRESENT Dohle Bodies PRESENT Platelet Estimate DECREASED Plt Morphology Comment NORMAL RBC Morphology NOTED Spherocytes Tear Drop Cells [place] Cells 2+ (3-5) Acanthocytes (Spur) Schistocytes 1+ (0-2) aPTT Heparin Protocol 129.4 H* 100.6 H D VBG pH VBG pCO2 VBG pO2 VBG HCO3 VBG O2 Saturation VBG Base Excess Sodium 134 L Potassium 3.7 Chloride 96 Carbon Dioxide 22 Anion Gap 20 BUN 28 H Creatinine 3.11 H Estim Creat Clear Calc 18.2 Estimated GFR 15 POC Glucose Random Glucose 122 H Lactic Acid Lactic Acid F/U @ 2Hr Lactic Acid F/U @ 4Hr Calcium 7.2 L Total Bilirubin 1.0 AST 194 H ALT 77 H Alkaline Phosphatase 67 Troponin I High Sens 6292.8 H* Total Protein 6.2 L Albumin 3.6 TSH 1.21 Respiratory Panel [place] Cancelled Adenovirus (Rapid PCR) Cancelled B.pert (TEM-PCR) Cancelled B.parapertussis DNA PCR Cancelled C. pneumoniae DNA (PCR) Cancelled Coronavirus OC43 (PCR) Cancelled Coronavirus HKU1 (PCR) Cancelled Coronavirus 229E (PCR) Cancelled Coronavirus NL63 (PCR) Cancelled Human Metapneumovir PCR Cancelled Influenza A (RT-PCR) Cancelled Influenza B (RT-PCR) Cancelled M. pneumoniae (PCR) Cancelled Parainfluenza 1 (PCR) Cancelled Parainfluenza 2 (PCR) Cancelled Parainfluenza 3 (PCR) Cancelled Parainfluenza 4 (PCR) Cancelled RSV (PCR) Cancelled Entero/Rhino (PCR) Cancelled SARS-CoV-2 RNA (RT-PCR) Cancelled 08/19/23 08/19/23 08/19/23 14:22 16:24 16:51 WBC RBC Hgb Hct MCV MCH MCHC RDW Plt Count MPV Immature Gran % (Auto) Neut % (Auto) Lymph % (Auto) [place] % (Auto) Eos % (Auto) Baso % (Auto) Lymph # (Auto) [place] # (Auto) Eos # (Auto) Baso # (Auto) Abs Immat Gran (auto) Absolute Neuts (auto) Absolute Nucleated RBC Nucleated RBC % (auto) Neutrophils % (Manual) Band Neutrophils % Lymphocytes % (Manual) Metamyelocytes % Myelocytes % Abs Neuts (Manual) Lymphocytes # (Manual) Metamyelocytes # Myelocytes # Nucleated RBCs Toxic Granulation Toxic Vacuolation Dohle Bodies Platelet Estimate Plt Morphology Comment RBC Morphology Spherocytes Tear Drop Cells [place]on Cells Acanthocytes (Spur) Schistocytes aPTT Heparin Protocol VBG pH VBG pCO2 VBG pO2 VBG HCO3 VBG O2 Saturation VBG Base Excess Sodium Potassium Chloride Carbon Dioxide Anion Gap BUN Creatinine Estim Creat Clear Calc Estimated GFR POC Glucose 59 L* Random Glucose Lactic Acid 6.2 H* Lactic Acid F/U @ 2Hr 5.7 H* Lactic Acid F/U @ 4Hr Calcium Total Bilirubin AST ALT Alkaline Phosphatase Troponin I High Sens Total Protein Albumin TSH Respiratory Panel Kun[place] Adenovirus (Rapid PCR) B.pert (TEM-PCR) B.parapertussis DNA PCR C. pneumoniae DNA (PCR) Coronavirus OC43 (PCR) Coronavirus HKU1 (PCR) Coronavirus 229E (PCR) Coronavirus NL63 (PCR) Human Metapneumovir PCR Influenza A (RT-PCR) Influenza B (RT-PCR) M. pneumoniae (PCR) Parainfluenza 1 (PCR) Parainfluenza 2 (PCR) Parainfluenza 3 (PCR) Parainfluenza 4 (PCR) RSV (PCR) Entero/Rhino (PCR) SARS-CoV-2 RNA (RT-PCR) 08/19/23 08/19/23 08/19/23 16:58 18:27 19:16 WBC 17.4 H RBC 3.49 L Hgb 10.7 L Hct 32.0 L MCV 91.7 MCH 30.7 MCHC 33.4 RDW 14.2 Plt Count 45 L MPV 10.4 Immature Gran % (Auto) Cancelled Neut % (Auto) Cancelled Lymph % (Auto) Cancelled [place] % (Auto) Cancelled Eos % (Auto) Cancelled Baso % (Auto) Cancelled Lymph # (Auto) Cancelled [place] # (Auto) Cancelled Eos # (Auto) Cancelled Baso # (Auto) Cancelled Abs Immat Gran (auto) Cancelled Absolute Neuts (auto) Cancelled Absolute Nucleated RBC 0.020 H Nucleated RBC % (auto) 0.1 Neutrophils % (Manual) 40 L Band Neutrophils % 44 H Lymphocytes % (Manual) 1 L Metamyelocytes % 6 Myelocytes % 9 Abs Neuts (Manual) 14.6 H Lymphocytes # (Manual) 0.2 L Metamyelocytes # 1.0 Myelocytes # 1.6 Nucleated RBCs Toxic Granulation PRESENT Toxic Vacuolation PRESENT Dohle Bodies PRESENT Platelet Estimate DECREASED Plt Morphology Comment NORMAL RBC Morphology NOTED Spherocytes Tear Drop Cells 1+ (0-2) [place] Cells 1+ (0-2) Acanthocytes (Spur) Schistocytes 1+ (0-2) aPTT Heparin Protocol VBG pH VBG pCO2 VBG pO2 VBG HCO3 VBG O2 Saturation VBG Base Excess Sodium Potassium Chloride Carbon Dioxide Anion Gap BUN Creatinine Estim Creat Clear Calc Estimated GFR POC Glucose 77 Random Glucose Lactic Acid Lactic Acid F/U @ 2Hr Lactic Acid F/U @ 4Hr 4.7 H* Calcium Total Bilirubin AST ALT Alkaline Phosphatase Troponin I High Sens Total Protein Albumin TSH Respiratory Panel [place] Adenovirus (Rapid PCR) B.pert (TEM-PCR) B.parapertussis DNA PCR C. pneumoniae DNA (PCR) Coronavirus OC43 (PCR) Coronavirus HKU1 (PCR) Coronavirus 229E (PCR) Coronavirus NL63 (PCR) Human Metapneumovir PCR Influenza A (RT-PCR) Influenza B (RT-PCR) M. pneumoniae (PCR) Parainfluenza 1 (PCR) Parainfluenza 2 (PCR) Parainfluenza 3 (PCR) Parainfluenza 4 (PCR) RSV (PCR) Entero/Rhino (PCR) SARS-CoV-2 RNA (RT-PCR) 08/20/23 08/20/23 05:06 05:07 WBC 20.8 H RBC 3.23 L Hgb 9.9 L Hct 29.3 L MCV 90.7 MCH 30.7 MCHC 33.8 RDW 14.2 Plt Count 41 L MPV 10.8 Immature Gran % (Auto) Cancelled Neut % (Auto) Cancelled Lymph % (Auto) Cancelled Levy % (Auto) Cancelled Eos % (Auto) Cancelled Baso % (Auto) Cancelled Lymph # (Auto) Cancelled Levy # (Auto) Cancelled Eos # (Auto) Cancelled Baso # (Auto) Cancelled Abs Immat Gran (auto) Cancelled Absolute Neuts (auto) Cancelled Absolute Nucleated RBC 0.030 H Nucleated RBC % (auto) 0.1 Neutrophils % (Manual) 35 L Band Neutrophils % 51 H Lymphocytes % (Manual) Metamyelocytes % 11 Myelocytes % 3 Abs Neuts (Manual) 17.9 H Lymphocytes # (Manual) Metamyelocytes # 2.3 Myelocytes # 0.6 Nucleated RBCs Toxic Granulation PRESENT Toxic Vacuolation PRESENT Dohle Bodies PRESENT Platelet Estimate DECREASED Plt Morphology Comment NORMAL RBC Morphology NOTED Spherocytes 1+ (0-2) Tear Drop Cells Harvey Cells Acanthocytes (Spur) 1+ (0-2) Schistocytes 1+ (0-2) aPTT Heparin Protocol VBG pH 7.38 VBG pCO2 42 VBG pO2 53 VBG HCO3 25 VBG O2 Saturation 82.0 VBG Base Excess 0.2 Sodium 130 L Potassium 4.4 Chloride 89 L Carbon Dioxide 22 Anion Gap 23 H BUN 40 H Creatinine 3.78 H Estim Creat Clear Calc 15.9 Estimated GFR 12 POC Glucose Random Glucose 97 Lactic Acid 4.3 H* Lactic Acid F/U @ 2Hr Lactic Acid F/U @ 4Hr Calcium 7.1 L Total Bilirubin 1.2 H AST 452 H ALT 225 H Alkaline Phosphatase 61 Troponin I High Sens Total Protein 6.2 L Albumin 3.5 TSH Respiratory Panel [place] Adenovirus (Rapid PCR) B.pert (TEM-PCR) B.parapertussis DNA PCR C. pneumoniae DNA (PCR) Coronavirus OC43 (PCR) Coronavirus HKU1 (PCR) Coronavirus 229E (PCR) Coronavirus NL63 (PCR) Human Metapneumovir PCR Influenza A (RT-PCR) Influenza B (RT-PCR) M. pneumoniae (PCR) Parainfluenza 1 (PCR) Parainfluenza 2 (PCR) Parainfluenza 3 (PCR) Parainfluenza 4 (PCR) RSV (PCR) Entero/Rhino (PCR) SARS-CoV-2 RNA (RT-PCR) Microbiology Microbiology Results: Microbiology 08/18/23 21:45 Blood - Venous Blood Culture - Preliminary Prelim: GPC Gram Stain only 08/18/23 20:17 Blood - Venous Blood Culture - Preliminary Prelim: GPC Gram Stain only Progress Note: A&P Assessment and plan (1) Septic shock due to Gram positive bacteria: Status: Acute (2) Acute hypoxic respiratory failure: Status: Acute (3) BRE (acute kidney injury): Status: Acute (4) Type 2 WV (myocardial infarction): Status: Acute (5) Ischemic hepatitis: Status: Acute Plan Patient is a 73 Y F with sarcoid, rheumatoid arthritis, on abatacept, prednisone, presenting to emergency department on 08/18 w/ encephalopathy, found to have left upper lobe pneumonia, c/b acute hypoxic respiratory failure, gram positive cocci bacteremia, c/b septic shock, admited ICU N: encephalopathy, improved, now alert, oriented CV: septic shock, necessitating high-dose norepinephrine gtt, vasopressin gtt, stress-dose steroids; troponinemia, likely d/t NSTEMI; grossly decreased LV function, likely d/t septic shock R: left upper lobe pneumonia, c/b acute hypoxic respiratory failure, on HFNC, wean as tolerated GI: cardiac diet; CT scan suggestive of pancreatitis; ultrasound demonstrating increased gallbladder wall thickness; both may be d/t septic shock/fluid resuscitation : acute renal insufficiency, non-oligouric, worsening; to monitor electrolytes, urine output very closely H: thrombocytopenia; to hold chemical DVT prophylaxis when platelets <50 ID: left upper lobe pneumonia, c/b gram positive bacteremia; to follow-up blood cultures, sputum cultures; empiric vancomycin, cefepime, metronidazole R: sarcoidosis, rheumatoid arthritis E: intermittent hypoglycemia; to monitor very closely P: no acute issues Quality Stroke Does the patient have a stroke diagnosis?: No VTE Prior VTE?: No VTE Risk Level:: Medical - moderate - high VTE Device Contraindication: N/A - Device Ordered VTE Drug Contraindication: Treatment Not Tolerated
[2023-08-20] MEDS: buPROPion HCl XL 150 MG TAB.ER.24H PO (08:48)
--- NOTE | 2023-08-20 08:56 | P.PNGS_ITS ---
Subjective Subjective Date of Service: 08/21/23 Interval history: worsening respiratory status overnight higher O2 requirements denies significant abdominal pain although feels bloating Physical Exam 2 Vital Signs: Vital Signs: Last Vital Signs Temp 101.5 F H 08/20/23 08:00 Pulse 110 H 08/20/23 08:00 Resp 24 H 08/20/23 08:00 BP 114/60 08/20/23 08:00 Pulse Ox 92 08/20/23 08:00 O2 Del Method High Flow Nasal C annula 08/20/23 08:00 O2 Flow Rate 50 08/20/23 08:00 FiO2 65 08/20/23 08:00 BMI result Body Mass Index 36.0 Const: Other: appears short of breath, on O2, high-flow Resp: Effort & Inspection: abnormal respiratory pattern Cardio: Rate: tachycardic GI: Other: no [place]'s sign Palpation (GI): Soft to palpation, not firm and no guarding Skin: Other: diffuse skin mottling and macular papular rash Objective Data Active Medications Acetaminophen (Acetaminophen 325 Mg Tablet) 650 mg PO Q6H PRN PRN Reason: Fever >101 Last Admin: 08/20/23 01:57 Dose: 650 mg Documented By: PRATEEK Bupropion HCl (Bupropion Hcl Xl 150 Mg Tab.Er.24h) 150 mg PO DAILY [facility] Last Admin: 08/20/23 08:48 Dose: 150 mg Documented By: AVRIL Glucose (Glucose Gel 15 Gm Gel..Gram.) 15 gm PO Q15M PRN PRN Reason: per Hypoglycemia Standing Ord. Last Admin: 08/19/23 16:40 Dose: 15 gm Documented By: AVRIL Hydrocortisone Sodium Succinate (Hydrocortisone Sod Succ/Pf 100 Mg Vial) 50 mg IVPUSH Q8H SANDRA Last Admin: 08/20/23 08:48 Dose: 50 mg Documented By: AVRIL Hydromorphone HCl (Hydromorphone Hcl 1 Mg/Ml Syringe) 1 mg IVPUSH Q4H PRN; Protocol PRN Reason: Pain, Moderate(Pain Scale 4-6) Last Admin: 08/20/23 06:57 Dose: 1 mg Documented By: AVRIL Norepinephrine Bitartrate (Levophed) 8 mg in 250 mls @ 0 mls/hr IV .Q0M SANDRA; Protocol Last Titration: 08/19/23 08:49 Dose: Infused Documented By: AVRIL Vasopressin (Vasostrict) 20 unit in 100 mls @ 12 mls/hr IVCONT .Q8H20M [facility] Last Admin: 08/20/23 01:58 Dose: 0.04 unit/min, 12 mls/hr Documented By: PRATEEK Norepinephrine Bitartrate 32 (mg/ Sodium Chloride) 250 mls @ 0 mls/hr IV .Q0M SANDRA; Protocol Last Titration: 08/20/23 03:53 Dose: 0.41 mcg/kg/min, 17.39 mls/hr Documented By: PRATEEK Sodium Bicarbonate 150 meq/ (Dextrose) 1,000 mls @ 100 mls/hr IV .Q10H [facility] Last Admin: 08/20/23 02:38 Dose: 100 mls/hr Documented By: PRATEEK Cefepime HCl 2 gm/ Sodium (Chloride) 50 mls @ 100 mls/hr IV Q8H [facility] Last Infusion: 08/20/23 02:40 Dose: Infused Documented By: PRATEEK Metronidazole (Flagyl) 500 mg in 100 mls @ 100 mls/hr IV Q8H [facility] Last Infusion: 08/20/23 03:47 Dose: Infused Documented By: PRATEEK Lidocaine (Lidocaine 4 % Patch Adh..Patch) 2 patch TRANSDERMA DAILY [facility]; Protocol Last Admin: 08/19/23 14:44 Dose: 2 patch Documented By: AVRIL Ondansetron HCl (Ondansetron Hcl 4 Mg/2 Ml Vial) 4 mg IVPUSH Q6H PRN PRN Reason: Nausea and Vomiting Last Admin: 08/20/23 04:31 Dose: 4 mg Documented By: PRATEEK Pharmacy Consult (Consult Rx Vancomycin Dosing) 1 each MISCELLANE DAILY PRN PRN Reason: Consult order Labs 08/21/23 05:10 08/21/23 05:10 Labs: Laboratory Results - last 24 hr 08/19/23 08/19/23 08/19/23 01:38 07:43 09:18 MCV 92.6 MCH 29.8 MCHC 32.2 RDW 14.3 Plt Count 47 L MPV 10.8 Immature Gran % (Auto) Cancelled Neut % (Auto) Cancelled Lymph % (Auto) Cancelled [place] % (Auto) Cancelled Eos % (Auto) Cancelled Baso % (Auto) Cancelled Lymph # (Auto) Cancelled [place] # (Auto) Cancelled Eos # (Auto) Cancelled Baso # (Auto) Cancelled Abs Immat Gran (auto) Cancelled Absolute Neuts (auto) Cancelled Absolute Nucleated RBC 0.020 H Nucleated RBC % (auto) 0.2 Neutrophils % (Manual) 42 L Band Neutrophils % 49 H Lymphocytes % (Manual) 2 L Metamyelocytes % 4 Myelocytes % 3 Abs Neuts (Manual) 10.2 H Lymphocytes # (Manual) 0.2 L Metamyelocytes # 0.4 Myelocytes # 0.3 Nucleated RBCs 1 H Toxic Granulation Toxic Vacuolation PRESENT Dohle Bodies PRESENT Platelet Estimate DECREASED Plt Morphology Comment NORMAL RBC Morphology NOTED Spherocytes Tear Drop Cells [place] Cells 2+ (3-5) Acanthocytes (Spur) Schistocytes 1+ (0-2) aPTT Heparin Protocol 129.4 H* 100.6 H D VBG pH VBG pCO2 VBG pO2 VBG HCO3 VBG O2 Saturation VBG Base Excess Anion Gap 20 Estim Creat Clear Calc 18.2 Estimated GFR 15 POC Glucose Random Glucose 122 H Lactic Acid Lactic Acid F/U @ 2Hr Lactic Acid F/U @ 4Hr Calcium 7.2 L Total Bilirubin 1.0 AST 194 H ALT 77 H Alkaline Phosphatase 67 Total Protein 6.2 L Albumin 3.6 TSH 1.21 Respiratory Panel [place] Cancelled Adenovirus (Rapid PCR) Cancelled B.pert (TEM-PCR) Cancelled B.parapertussis DNA PCR Cancelled C. pneumoniae DNA (PCR) Cancelled Coronavirus OC43 (PCR) Cancelled Coronavirus HKU1 (PCR) Cancelled Coronavirus 229E (PCR) Cancelled Coronavirus NL63 (PCR) Cancelled Human Metapneumovir PCR Cancelled Influenza A (RT-PCR) Cancelled Influenza B (RT-PCR) Cancelled M. pneumoniae (PCR) Cancelled Parainfluenza 1 (PCR) Cancelled Parainfluenza 2 (PCR) Cancelled Parainfluenza 3 (PCR) Cancelled Parainfluenza 4 (PCR) Cancelled RSV (PCR) Cancelled Entero/Rhino (PCR) Cancelled SARS-CoV-2 RNA (RT-PCR) Cancelled 08/19/23 08/19/23 08/19/23 14:22 16:24 16:51 MCV MCH MCHC RDW Plt Count MPV Immature Gran % (Auto) Neut % (Auto) Lymph % (Auto) [place] % (Auto) Eos % (Auto) Baso % (Auto) Lymph # (Auto) [place] # (Auto) Eos # (Auto) Baso # (Auto) Abs Immat Gran (auto) Absolute Neuts (auto) Absolute Nucleated RBC Nucleated RBC % (auto) Neutrophils % (Manual) Band Neutrophils % Lymphocytes % (Manual) Metamyelocytes % Myelocytes % Abs Neuts (Manual) Lymphocytes # (Manual) Metamyelocytes # Myelocytes # Nucleated RBCs Toxic Granulation Toxic Vacuolation Dohle Bodies Platelet Estimate Plt Morphology Comment RBC Morphology Spherocytes Tear Drop Cells [place] Cells Acanthocytes (Spur) Schistocytes aPTT Heparin Protocol VBG pH VBG pCO2 VBG pO2 VBG HCO3 VBG O2 Saturation VBG Base Excess Anion Gap Estim Creat Clear Calc Estimated GFR POC Glucose 59 L* Random Glucose Lactic Acid 6.2 H* Lactic Acid F/U @ 2Hr 5.7 H* Lactic Acid F/U @ 4Hr Calcium Total Bilirubin AST ALT Alkaline Phosphatase Total Protein Albumin TSH Respiratory Panel Kun[place] Adenovirus (Rapid PCR) B.pert (TEM-PCR) B.parapertussis DNA PCR C. pneumoniae DNA (PCR) Coronavirus OC43 (PCR) Coronavirus HKU1 (PCR) Coronavirus 229E (PCR) Coronavirus NL63 (PCR) Human Metapneumovir PCR Influenza A (RT-PCR) Influenza B (RT-PCR) M. pneumoniae (PCR) Parainfluenza 1 (PCR) Parainfluenza 2 (PCR) Parainfluenza 3 (PCR) Parainfluenza 4 (PCR) RSV (PCR) Entero/Rhino (PCR) SARS-CoV-2 RNA (RT-PCR) 08/19/23 08/19/23 08/19/23 16:58 18:27 19:16 MCV 91.7 MCH 30.7 MCHC 33.4 RDW 14.2 Plt Count 45 L MPV 10.4 Immature Gran % (Auto) Cancelled Neut % (Auto) Cancelled Lymph % (Auto) Cancelled [place] % (Auto) Cancelled Eos % (Auto) Cancelled Baso % (Auto) Cancelled Lymph # (Auto) Cancelled [place] # (Auto) Cancelled Eos # (Auto) Cancelled Baso # (Auto) Cancelled Abs Immat Gran (auto) Cancelled Absolute Neuts (auto) Cancelled Absolute Nucleated RBC 0.020 H Nucleated RBC % (auto) 0.1 Neutrophils % (Manual) 40 L Band Neutrophils % 44 H Lymphocytes % (Manual) 1 L Metamyelocytes % 6 Myelocytes % 9 Abs Neuts (Manual) 14.6 H Lymphocytes # (Manual) 0.2 L Metamyelocytes # 1.0 Myelocytes # 1.6 Nucleated RBCs Toxic Granulation PRESENT Toxic Vacuolation PRESENT Dohle Bodies PRESENT Platelet Estimate DECREASED Plt Morphology Comment NORMAL RBC Morphology NOTED Spherocytes Tear Drop Cells 1+ (0-2) [place] Cells 1+ (0-2) Acanthocytes (Spur) Schistocytes 1+ (0-2) aPTT Heparin Protocol VBG pH VBG pCO2 VBG pO2 VBG HCO3 VBG O2 Saturation VBG Base Excess Anion Gap Estim Creat Clear Calc Estimated GFR POC Glucose 77 Random Glucose Lactic Acid Lactic Acid F/U @ 2Hr Lactic Acid F/U @ 4Hr 4.7 H* Calcium Total Bilirubin AST ALT Alkaline Phosphatase Total Protein Albumin TSH Respiratory Panel [place] Adenovirus (Rapid PCR) B.pert (TEM-PCR) B.parapertussis DNA PCR C. pneumoniae DNA (PCR) Coronavirus OC43 (PCR) Coronavirus HKU1 (PCR) Coronavirus 229E (PCR) Coronavirus NL63 (PCR) Human Metapneumovir PCR Influenza A (RT-PCR) Influenza B (RT-PCR) M. pneumoniae (PCR) Parainfluenza 1 (PCR) Parainfluenza 2 (PCR) Parainfluenza 3 (PCR) Parainfluenza 4 (PCR) RSV (PCR) Entero/Rhino (PCR) SARS-CoV-2 RNA (RT-PCR) 08/20/23 08/20/23 08/20/23 05:06 05:07 08:25 MCV 90.7 MCH 30.7 MCHC 33.8 RDW 14.2 Plt Count 41 L MPV 10.8 Immature Gran % (Auto) Cancelled Neut % (Auto) Cancelled Lymph % (Auto) Cancelled [place] % (Auto) Cancelled Eos % (Auto) Cancelled Baso % (Auto) Cancelled Lymph # (Auto) Cancelled [place] # (Auto) Cancelled Eos # (Auto) Cancelled Baso # (Auto) Cancelled Abs Immat Gran (auto) Cancelled Absolute Neuts (auto) Cancelled Absolute Nucleated RBC 0.030 H Nucleated RBC % (auto) 0.1 Neutrophils % (Manual) 35 L Band Neutrophils % 51 H Lymphocytes % (Manual) Metamyelocytes % 11 Myelocytes % 3 Abs Neuts (Manual) 17.9 H Lymphocytes # (Manual) Metamyelocytes # 2.3 Myelocytes # 0.6 Nucleated RBCs Toxic Granulation PRESENT Toxic Vacuolation PRESENT Dohle Bodies PRESENT Platelet Estimate DECREASED Plt Morphology Comment NORMAL RBC Morphology NOTED Spherocytes 1+ (0-2) Tear Drop Cells [place] Cells Acanthocytes (Spur) 1+ (0-2) Schistocytes 1+ (0-2) aPTT Heparin Protocol VBG pH 7.38 VBG pCO2 42 VBG pO2 53 VBG HCO3 25 VBG O2 Saturation 82.0 VBG Base Excess 0.2 Anion Gap 23 H Estim Creat Clear Calc 15.9 Estimated GFR 12 POC Glucose Random Glucose 97 Lactic Acid 4.3 H* Lactic Acid F/U @ 2Hr 5.0 H* Lactic Acid F/U @ 4Hr Calcium 7.1 L Total Bilirubin 1.2 H AST 452 H ALT 225 H Alkaline Phosphatase 61 Total Protein 6.2 L Albumin 3.5 TSH Respiratory Panel [place] Adenovirus (Rapid PCR) B.pert (TEM-PCR) B.parapertussis DNA PCR C. pneumoniae DNA (PCR) Coronavirus OC43 (PCR) Coronavirus HKU1 (PCR) Coronavirus 229E (PCR) Coronavirus NL63 (PCR) Human Metapneumovir PCR Influenza A (RT-PCR) Influenza B (RT-PCR) M. pneumoniae (PCR) Parainfluenza 1 (PCR) Parainfluenza 2 (PCR) Parainfluenza 3 (PCR) Parainfluenza 4 (PCR) RSV (PCR) Entero/Rhino (PCR) SARS-CoV-2 RNA (RT-PCR) Microbiology Microbiology Results: Microbiology 08/18/23 21:45 Blood Culture - Preliminary Blood - Venous Prelim: GPC Gram Stain only 08/18/23 20:17 Blood Culture - Preliminary Blood - Venous Prelim: GPC Gram Stain only Procedures Date of Service Date of Service: 08/21/23 Progress Note: A&P Assessment and plan (1) Septic shock due to Gram positive bacteria: Status: Acute Assessment and Plan: now appears to be in multiorgan failure creatinine rising, worsening respiratory status LFTs elevated especially AST/ ALT also has thrombocytopenia, with maculopapular rash ultrasound yesterday suggested gallbladder wall edema, no other inflammatory changes CT scan does not suggest inflammatory changes are on the gallbladder no gallstones, gallbladder does not appear to be markedly distended does not seem to have significant right upper quadrant pain or tenderness low index of suspicion for the gallbladder being focus of infection edema may be secondary to third-spacing also, visual blood cultures show Gram-positive cocci await final results for identification of cultures had a long discussion with warp starter - we will hold off on cholecystostomy tube for now in view of above patient critically ill family appears to understand this Time Spent With Patient Time: Total time managing care of this patient today ____ minutes. Quality Stroke Does the patient have a stroke diagnosis?: No VTE Prior VTE?: No VTE Risk Level:: Medical - moderate - high VTE Device Contraindication: N/A - Device Ordered VTE Drug Contraindication: Treatment Not Tolerated
[2023-08-20] MEDS: Bumetanide 25 MG in Container,Empty 0 ML IVCONT (10:30)
[2023-08-20] MEDS: Calcium Chloride 1 GM/10 ML SYRINGE IVPUSH (10:30)
[2023-08-20 10:34] LABS: Reflex Lactate? 2 Y
[2023-08-20] MEDS: Lidocaine 4 % Patch ADH..PATCH 2 PATCH TRANSDERMA (10:49)
--- NOTE | 2023-08-20 10:56 | MHC.CM.PN ---
IMM ADDRESSED WITH DAUGHTER AT BEDSIDE IN ICU. PT IS INTUBATED/SEDATED. PER DAUGHTER, PT WAS INDEPENDENT AND ACTIVE PRIOR TO THIS EPISODE. COPY OF HCP AT HOME, COPY REQUESTED. [place] [facility] [place]: TBD. SUPPORT OFFERED TO FAMILY AT BEDSIDE. CM WILL CONTINUE TO FOLLOW FOR DC PLAN/NEEDS.
[2023-08-20 10:57] LABS: ~Lactic Acid-LAB USE ONLY 4.3 mmol/L (0.5-2.0)
[2023-08-20] MEDS: Dextrose 50 % 25 GM/50 ML SYRINGE IVPUSH ×2 (17:02→22:58)
[2023-08-20 17:39] LABS: Glucose, Whole Blood 114 mg/dL (60-115)
[2023-08-20 17:39] LABS: Glucose, Whole Blood 54 mg/dL (60-115)
[2023-08-20 18:25] LABS: VBG Base Excess 4.3 mmol/L; VBG HCO3 29 mmol/L (22-26); VBG pCO2 45 mmHg; VBG pH 7.42 (7.32-7.43); VBG pO2 46 mmHg
[2023-08-20 18:36] LABS: Venous Blood Gas Refer to POC result
[2023-08-20 18:47] LABS: Glucose, Whole Blood 98 mg/dL (60-115)
--- NOTE | 2023-08-20 20:00 | P.CDIM_ITS ---
PROVIDER RESPONSE TEXT: To clarify, the appropriate diagnosis supported by the clinical indicators: Septic QUERY TEXT: PHYSICIAN'S DOCUMENTATION REQUEST Date of Query: 08/20/2023 09:53 AM EST Patient Name: Tasha Nieto Admit Date: 08/19/2023 Dear Nicola Torres, A review of the medical record indicates additional documentation may be needed. Please review below and update the documentation accordingly. Clinical Indicators: ICU progress notes - patient presented to the Ed on 08/18 with encephalopathy, improved, now alert an d oriented. Based on the above, please further specify, in the Progress Notes, the known or suspected type of the documented encephalopathy: Metabolic Septic Toxic Toxic metabolic Hepatic (reported as hepatic failure and needs further specificity as to acute, subacute, or chronic) Due to a specified condition (such as UTI, hyponatremia, CVA, etc.) Other (explain) Clinically unable to determine (explain) Thank you, Jennifer Kendrick, CCS, CDIS Use of terms such as suspected, likely, concern for, or probable (associated with a specific diagnosi s that is being evaluated, monitored, or treated as if it exists) are acceptable and can be coded in the inpatient se tting, when documented at the time of discharge. Please use your independent medical judgment in providing your response. THIS QUERY IS PART OF THE PERMANENT MEDICAL RECORD
[2023-08-20] MEDS: Acetaminophen 1,000 MG/100 ML PIGGYBACK 400 MG IV (20:02)
[2023-08-20 22:58] LABS: Glucose, Whole Blood 63 mg/dL (60-115)
[2023-08-20 23:25] LABS: Glucose, Whole Blood 130 mg/dL (60-115)
[2023-08-21] VITALS (56 sets, daily range): BP systolic 60–169; BP diastolic 32–86; PULSE 88–115; RESP 17–34; TEMP 32–39.3; O2SAT 89–99; BMI 36.9
[2023-08-21 00:28] LABS: ABG Base Excess 5.1 mmol/L; ABG HCO3 31 mmol/L (22-26); ABG pCO2 52 mmHg (32-45); ABG pH 7.38 (7.35-7.45); ABG pO2 82 mmHg (83-108)
[2023-08-21 00:35] LABS: ABG Refer to POC result
[2023-08-21] MEDS: propofoL 200 MG/20 ML VIAL 100 MG IVPUSH (00:50)
[2023-08-21] MEDS: Rocuronium Bromide 50 MG/5 ML VIAL 40 MG IVPUSH (00:50)
[2023-08-21] MEDS: propofoL 1,000 MG/100 ML VIAL 24.31 MG IVCONT ×3 (00:55→07:47)
[2023-08-21] MEDS: Hydrocortisone Sod Succ/PF 100 MG VIAL 50 MG IVPUSH ×3 (01:22→17:09)
--- NOTE | 2023-08-21 01:41 | W.PM.CCHP ---
Procedures Date of Service Date of Service: 08/21/23 Intubation Intubation Comments: Around 19:30 last night the patient is breathing ability worsened; blood gas was not revealing; however she appeared to be struggling to breathe and complained of having difficulty doing so. Patient was then placed on CPAP which seemed to help significantly however this lasted about 4 hours or so before the patient got tired and he was eminent that the patient was having difficulty managing her airway, using accessory muscles significantly and getting significantly tire. At this point I had made the determination to proceed with intubation, this possibility was previously discussed with the patient's at bedside as well as with the patient both of home at the time I agreed to have this done if it was needed. Subsequently around 01:00 I did communicate the need of intubation to the patient's and daughter over the phone and obtained their verbal consent. Patient was hyperoxygenated per RSI protocol with a bougie as back up. Consent for Procedure: Elective - informed consent obtained Time out performed: Yes Sedative: propofol Mg given: 100 Paralytic: rocuronium Mg given: 40 Laryngoscope: fiber optic video scope ET tube size: 8 ET tube uncuffed: Yes Tube secured depth (cm): 26 Tube secured location: lips Tube placement confirmation: visualized tube passing through cords, equal breath sounds bilaterally, no breath sounds over epigastrium and confirmation by capnometry Patient tolerated procedure: well and no complications Intubation complications: none and other (X-ray reviewed post intubation, shows the tip of the endotracheal tube about 3 cm above the virgilio. Bilateral patchy infiltrates, no pneumothorax.)
[2023-08-21] MEDS: acetaZOLAMIDE sodium 500 MG VIAL IVPUSH (02:02)
[2023-08-21] MEDS: cefEPime HCl 2 GM in 0.9 % Sodium Chloride 50 ML IV ×3 (02:23→18:38)
[2023-08-21] MEDS: metroNIDAZOLE/NS 500 MG/100 ML PIGGYBACK 100 MG IV ×3 (02:24→18:38)
--- NOTE | 2023-08-21 03:22 | PC.NURSE ---
0000- Pt having increased work of breathing on cpap, pt becoming more lethargic - only arousable to sternal rub. Decision to intubate by Nicola OBYD.? 00:50 - 100 mg propofol, 40 mg rocuronium?given for intubation 00:52 - Intubated with #8 ETT 26 cm at lip, vent settings - 18/400/5/60% Unable to pass og tube, ng tube placed in L nare Cxr completed to verify?placement? Propofol gtt started at 40 mcg/kg/min, levophed titrated to 0.4 mcg/kg/min for low MAPs?
[2023-08-21 05:26] LABS: VBG Base Excess 5.9 mmol/L; VBG HCO3 31 mmol/L (22-26); VBG pCO2 49 mmHg; VBG pO2 56 mmHg
[2023-08-21 05:30] LABS: Venous Blood Gas Refer to POC result
[2023-08-21 05:50] LABS: NRBC Pct Auto 0.8 /100WBC (0.0-0.2); PLT ABN DIST 1; WBC ABN SCTR FOR CBC 1
[2023-08-21 05:52] LABS: Hematocrit 30.3 % (37.0-47.0); Hemoglobin 10.1 g/dl (12.0-16.0); Mean Corpuscular HGB Conc 33.3 g/dl (31.0-35.0); Mean Corpuscular Hemoglobin 30.1 pg (27.0-33.0); Mean Corpuscular Volume 90.4 fL (80.0-98.0); Red Blood Count 3.35 X10*6/uL (4.20-5.50); Red Cell Distribution Width 14.4 % (11.0-16.0)
[2023-08-21 05:54] LABS: Platelet Count 31 X10*3/uL (160-400); White Blood Count 33.9 X10*3/uL (4.8-10.8)
[2023-08-21 06:08] LABS: Anion Gap 24 (12-20); Blood Urea Nitrogen 66 mg/dL (9-16); Carbon Dioxide 27 mmol/L (22-29); Chloride 85 mmol/L (96-108); Creatinine Clr Calc Pharmacy 12.2; Estimated Glomerular Filt Rate 9; Glucose Random 72 mg/dL (60-115); Magnesium 2.2 mg/dL (1.6-2.6); Phosphorus 8.3 mg/dL (2.7-4.5); Potassium 4.7 mmol/L (3.3-5.1); Sodium 131 mmol/L (135-145)
[2023-08-21 06:25] LABS: Band Neutrophils Percent 22 % (3-5); Monocytes Absolute Manual 2.4 X10*3/uL (0.1-1.2); Monocytes Percent Manual 7 % (2-11); Neutrophils Absolute Manual 31.5 X10*3/uL (2.0-8.3); Neutrophils Percent Manual 71 % (45-73); Nucleated Red Blood Cells 1 /100WBC (0-0)
[2023-08-21 06:27] LABS: Acanthocytes 1+ (0-2) /OIF; Burr Cells 1+ (0-2) /OIF; Dohle Bodies PRESENT; Platelet Estimate DECREASED (NORMAL); Platelet Morphology Comment NORMAL; Polychromasia 1+ (0-2) /OIF; RBC Morphology NOTED; Schistocytes 1+ (0-2) /OIF; Spherocytes 1+ (0-2) /OIF; Tear Drop Cells 1+ (0-2) /OIF; Toxic Granulation PRESENT
[2023-08-21] MEDS: Bumetanide 25 MG in Container,Empty 0 ML 4 MG IVCONT (07:24)
[2023-08-21] MEDS: Vasopressin 20 UNIT/100 ML INFUS..BTL 12 UNIT IVCONT ×3 (07:46→23:33)
--- NOTE | 2023-08-21 08:13 | P.PNCC_ITS ---
Subjective Subjective Date of Service: 08/21/23 Interval History: worsening multi-system organ failure, including hypoxic respiratory failure, intubated overnight Critical Care Time (minutes): 90 Physical Exam 2 Vital Signs: Vital Signs: Last Vital Signs Temp 100.4 F 08/21/23 07:00 Pulse 100 08/21/23 07:46 Resp 18 08/21/23 07:00 BP 129/53 L 08/21/23 07:46 Pulse Ox 98 08/21/23 07:00 O2 Del Method Mechanical Ventil ation 08/21/23 07:00 O2 Flow Rate 55 08/20/23 18:00 FiO2 60 08/21/23 07:00 BMI result Body Mass Index 36.9 Const: Other: intubated, sedated HEENT: Head: Yes normal to inspection, Yes normocephalic and Yes atraumatic Eyes: General: appearance normal, both eyes and all related structures Neck: Neck: Yes normal visual inspection, Yes full ROM and Yes supple Chest: Chest palpation & inspection: normal inspection of the chest Resp: Other: no appreciable rales, rhonchi, wheezing Effort & Inspection: normal respiratory effort Cardio: Rate: regular rate Rhythm: regular rhythm GI: Inspection: Yes normal to inspection, No Abdominal wall edema and No distended Palpation (GI): Soft to palpation, not firm, nontender, no guarding and not rigid : External Female Exam: normal external appearance Skin: Other: appreciable purpura throughout Neuro: Other: intubated, sedated General: tone normal and no focal motor deficits Extrem: Other: non-pitting edema throughout General: Yes normal to inspection and Yes capillary refill normal Psych: Other: unable to assess Objective Data Labs 08/21/23 05:10 08/21/23 05:10 Labs: Laboratory Results - last 24 hr 08/19/23 08/20/23 08/20/23 09:18 08:25 10:40 WBC RBC Hgb Hct MCV MCH MCHC RDW Plt Count MPV Immature Gran % (Auto) Neut % (Auto) Lymph % (Auto) [place] % (Auto) Eos % (Auto) Baso % (Auto) Lymph # (Auto) [place] # (Auto) Eos # (Auto) Baso # (Auto) Abs Immat Gran (auto) Absolute Neuts (auto) Absolute Nucleated RBC Nucleated RBC % (auto) Neutrophils % (Manual) Band Neutrophils % Monocytes % (Manual) Abs Neuts (Manual) Monocytes # (Manual) Nucleated RBCs Toxic Granulation Dohle Bodies Platelet Estimate Plt Morphology Comment RBC Morphology Polychromasia Spherocytes Tear Drop Cells [place] Cells Acanthocytes (Spur) Schistocytes Smear Path Review SEE NOTE O2 Saturation ABG pH at Pt Temp ABG pCO2 at Pt Temp ABG pO2 at Pt Temp ABG HCO3 ABG Base Excess (Actual) VBG pH VBG pCO2 VBG pO2 VBG HCO3 VBG O2 Saturation VBG Base Excess Sodium Potassium Chloride Carbon Dioxide Anion Gap BUN Creatinine Estim Creat Clear Calc Estimated GFR POC Glucose Random Glucose Lactic Acid F/U @ 2Hr 5.0 H* Lactic Acid F/U @ 4Hr 4.3 H* Calcium Phosphorus Magnesium 08/20/23 08/20/23 08/20/23 16:56 17:11 18:00 WBC RBC Hgb Hct MCV MCH MCHC RDW Plt Count MPV Immature Gran % (Auto) Neut % (Auto) Lymph % (Auto) [place] % (Auto) Eos % (Auto) Baso % (Auto) Lymph # (Auto) [place] # (Auto) Eos # (Auto) Baso # (Auto) Abs Immat Gran (auto) Absolute Neuts (auto) Absolute Nucleated RBC Nucleated RBC % (auto) Neutrophils % (Manual) Band Neutrophils % Monocytes % (Manual) Abs Neuts (Manual) Monocytes # (Manual) Nucleated RBCs Toxic Granulation Dohle Bodies Platelet Estimate Plt Morphology Comment RBC Morphology Polychromasia Spherocytes Tear Drop Cells [place] Cells Acanthocytes (Spur) Schistocytes Smear Path Review O2 Saturation ABG pH at Pt Temp ABG pCO2 at Pt Temp ABG pO2 at Pt Temp ABG HCO3 ABG Base Excess (Actual) VBG pH VBG pCO2 VBG pO2 VBG HCO3 VBG O2 Saturation VBG Base Excess Sodium Potassium Chloride Carbon Dioxide Anion Gap BUN Creatinine Estim Creat Clear Calc Estimated GFR POC Glucose 54 L* 114 98 Random Glucose Lactic Acid F/U @ 2Hr Lactic Acid F/U @ 4Hr Calcium Phosphorus Magnesium 08/20/23 08/20/23 08/20/23 18:20 22:55 23:22 WBC RBC Hgb Hct MCV MCH MCHC RDW Plt Count MPV Immature Gran % (Auto) Neut % (Auto) Lymph % (Auto) [place] % (Auto) Eos % (Auto) Baso % (Auto) Lymph # (Auto) [place] # (Auto) Eos # (Auto) Baso # (Auto) Abs Immat Gran (auto) Absolute Neuts (auto) Absolute Nucleated RBC Nucleated RBC % (auto) Neutrophils % (Manual) Band Neutrophils % Monocytes % (Manual) Abs Neuts (Manual) Monocytes # (Manual) Nucleated RBCs Toxic Granulation Dohle Bodies Platelet Estimate Plt Morphology Comment RBC Morphology Polychromasia Spherocytes Tear Drop Cells [place] Cells Acanthocytes (Spur) Schistocytes Smear Path Review O2 Saturation ABG pH at Pt Temp ABG pCO2 at Pt Temp ABG pO2 at Pt Temp ABG HCO3 ABG Base Excess (Actual) VBG pH 7.42 VBG pCO2 45 VBG pO2 46 VBG HCO3 29 H VBG O2 Saturation 68.0 VBG Base Excess 4.3 Sodium Potassium Chloride Carbon Dioxide Anion Gap BUN Creatinine Estim Creat Clear Calc Estimated GFR POC Glucose 63 130 H Random Glucose Lactic Acid F/U @ 2Hr Lactic Acid F/U @ 4Hr Calcium Phosphorus Magnesium 08/21/23 08/21/23 08/21/23 00:21 05:10 05:21 WBC 33.9 H* RBC 3.35 L Hgb 10.1 L Hct 30.3 L MCV 90.4 MCH 30.1 MCHC 33.3 RDW 14.4 Plt Count 31 L MPV Not Reportable Immature Gran % (Auto) Cancelled Neut % (Auto) Cancelled Lymph % (Auto) Cancelled [place] % (Auto) Cancelled Eos % (Auto) Cancelled Baso % (Auto) Cancelled Lymph # (Auto) Cancelled [place] # (Auto) Cancelled Eos # (Auto) Cancelled Baso # (Auto) Cancelled Abs Immat Gran (auto) Cancelled Absolute Neuts (auto) Cancelled Absolute Nucleated RBC 0.270 H Nucleated RBC % (auto) 0.8 H Neutrophils % (Manual) 71 Band Neutrophils % 22 H Monocytes % (Manual) 7 Abs Neuts (Manual) 31.5 H Monocytes # (Manual) 2.4 H Nucleated RBCs 1 H Toxic Granulation PRESENT Dohle Bodies PRESENT Platelet Estimate DECREASED Plt Morphology Comment NORMAL RBC Morphology NOTED Polychromasia 1+ (0-2) Spherocytes 1+ (0-2) Tear Drop Cells 1+ (0-2) [place] Cells 1+ (0-2) Acanthocytes (Spur) 1+ (0-2) Schistocytes 1+ (0-2) Smear Path Review O2 Saturation 95.0 ABG pH at Pt Temp 7.38 ABG pCO2 at Pt Temp 52 H ABG pO2 at Pt Temp 82 L ABG HCO3 31 H ABG Base Excess (Actual) 5.1 VBG pH 7.40 VBG pCO2 49 VBG pO2 56 VBG HCO3 31 H VBG O2 Saturation 83.0 VBG Base Excess 5.9 Sodium 131 L Potassium 4.7 Chloride 85 L Carbon Dioxide 27 Anion Gap 24 H BUN 66 H Creatinine 4.95 H* Estim Creat Clear Calc 12.2 Estimated GFR 9 POC Glucose Random Glucose 72 Lactic Acid F/U @ 2Hr Lactic Acid F/U @ 4Hr Calcium 7.0 L Phosphorus 8.3 H Magnesium 2.2 Microbiology Microbiology Results: Microbiology 08/18/23 21:45 Blood - Venous Blood Culture - Preliminary Streptococcus pneumoniae 08/18/23 20:17 Blood - Venous Blood Culture - Preliminary Streptococcus pneumoniae Progress Note: A&P Assessment and plan (1) BRE (acute kidney injury): Status: Acute (2) Type 2 AL (myocardial infarction): Status: Acute (3) Rheumatoid arthritis involving multiple joints: Status: Acute (4) Ischemic hepatitis: Status: Acute (5) Acute hypoxic respiratory failure: Status: Acute (6) Pneumonia: Status: Acute (7) Septic shock due to streptococcal infection: Status: Acute Plan Patient is a 73 Y F with sarcoid, rheumatoid arthritis, on abatacept, prednisone, presenting to emergency department on 08/18 w/ encephalopathy, found to have left upper lobe pneumonia, c/b acute hypoxic respiratory failure, gram positive cocci bacteremia, c/b septic shock, admited ICU N: intubated, sedated CV: septic shock, necessitating high-dose norepinephrine gtt, vasopressin gtt, stress-dose steroids; troponinemia, likely d/t NSTEMI; grossly decreased LV function, likely d/t septic shock R: left upper lobe pneumonia, c/b acute hypoxic respiratory failure, intubated 08/21; to wean as tolerated GI: cardiac diet; CT scan suggestive of pancreatitis; ultrasound demonstrating increased gallbladder wall thickness; both may be d/t septic shock/fluid resuscitation : acute renal insufficiency, non-oligouric, worsening; to consider possible hemodialysis today H: thrombocytopenia, worsening; to hold chemical DVT prophylaxis when platelets <50 ID: left upper lobe pneumonia, c/b strep pneumo bacteremia; to follow-up blood cultures, sputum cultures; empiric vancomycin, cefepime, metronidazole R: sarcoidosis, rheumatoid arthritis E: intermittent hypoglycemia; to monitor very closely P: no acute issues Quality Stroke Does the patient have a stroke diagnosis?: No VTE Prior VTE?: No VTE Risk Level:: Medical - moderate - high VTE Device Contraindication: N/A - Device Ordered VTE Drug Contraindication: Treatment Not Tolerated
[2023-08-21] MEDS: Sodium Bicarbonate 8.4% 150 MEQ in Dextrose 5 % 850 ML 100 MEQ IV (08:46)
[2023-08-21] MEDS: Calcium Chloride 1 GM/10 ML SYRINGE IVPUSH (08:48)
[2023-08-21 09:20] LABS: Lactic Acid 2.9 mmol/L (0.5-2.0)
[2023-08-21] MEDS: Chlorhexidine Gluc Oral Rinse 15 ML MOUTHWASH BUCCAL ×3 (09:44→20:57)
--- NOTE | 2023-08-21 10:10 | P.PNGS_ITS ---
Subjective Subjective Date of Service: 08/24/23 Interval history: Intubated last night for hypoxia, respiratory failure currently sedated, on ventilator remains on multiple pressors Physical Exam 2 Vital Signs: Vital Signs: Last Vital Signs Temp 100.8 F H 08/21/23 09:00 Pulse 103 H 08/21/23 09:08 Resp 17 08/21/23 09:00 BP 133/65 08/21/23 09:08 Pulse Ox 95 08/21/23 09:00 O2 Del Method Mechanical Ventil ation 08/21/23 09:00 O2 Flow Rate 55 08/20/23 18:00 FiO2 50 08/21/23 09:00 BMI result Body Mass Index 36.9 Const: Other: intubated, sedated Resp: Other: on ventilator Cardio: Rate: tachycardic GI: Inspection: No distended Palpation (GI): Soft to palpation, not firm and no guarding Objective Data Active Medications Acetaminophen (Acetaminophen 325 Mg Tablet) 650 mg PO Q6H PRN PRN Reason: Fever >101 Last Admin: 08/20/23 13:42 Dose: 650 mg Documented By: AVRIL Bupropion HCl (Bupropion Hcl Xl 150 Mg Tab.Er.24h) 150 mg PO DAILY FORMERLY [facility], 1928–1983 Last Admin: 08/20/23 08:48 Dose: 150 mg Documented By: AVRIL Chlorhexidine Gluconate (Chlorhexidine Gluc Oral Rinse 15 Ml Mouthwash) 15 ml BUCCAL TID FOR[facility]LY [facility], [facility]–1983 Last Admin: 08/21/23 09:44 Dose: 15 ml Documented By: NAVNEET Dextrose (Dextrose 50 % 25 Gm/50 Ml Syringe) 25 gm IVPUSH Q15M PRN PRN Reason: per Hypoglycemia Standing Ord. Last Admin: 08/20/23 22:58 Dose: 25 gm Documented By: PRATEEK Comments: poc 63 - give per OLIVER Petersen Glucose (Glucose Gel 15 Gm Gel..Gram.) 15 gm PO Q15M PRN PRN Reason: per Hypoglycemia Standing Ord. Last Admin: 08/19/23 16:40 Dose: 15 gm Documented By: AVRIL Hydrocortisone Sodium Succinate (Hydrocortisone Sod Succ/Pf 100 Mg Vial) 50 mg IVPUSH Q8H FOR[facility]LY [facility], [facility]1983 Last Admin: 08/21/23 08:42 Dose: 50 mg Documented By: NAVNEET Hydromorphone HCl (Hydromorphone Hcl 1 Mg/Ml Syringe) 1 mg IVPUSH Q4H PRN; Protocol PRN Reason: Pain, Moderate(Pain Scale 4-6) Last Admin: 08/20/23 23:46 Dose: 1 mg Documented By: PRATEEK Norepinephrine Bitartrate (Levophed) 8 mg in 250 mls @ 0 mls/hr IV .Q0M SANDRA; Protocol Last Titration: 08/19/23 08:49 Dose: Infused Documented By: AVRIL Vasopressin (Vasostrict) 20 unit in 100 mls @ 12 mls/hr IVCONT .Q8H20M SANDRA Last Infusion: 08/21/23 07:46 Dose: Infused Documented By: NAVNEET Norepinephrine Bitartrate 32 (mg/ Sodium Chloride) 250 mls @ 0 mls/hr IV .Q0M SANDRA; Protocol Last Titration: 08/21/23 09:08 Dose: 0.32 mcg/kg/min, 13.58 mls/hr Documented By: NAVNEET Cefepime HCl 2 gm/ Sodium (Chloride) 50 mls @ 100 mls/hr IV Q8H SANDRA Last Infusion: 08/21/23 02:56 Dose: Infused Documented By: PRATEEK Metronidazole (Flagyl) 500 mg in 100 mls @ 100 mls/hr IV Q8H SANDRA Last Infusion: 08/21/23 03:32 Dose: Infused Documented By: PRATEEK Bumetanide 25 mg/ IV (Miscellaneous Supplies) 100 mls @ 4 mls/hr IVCONT .Q24H SANDRA Last Admin: 08/21/23 07:24 Dose: 1 mg/hr, 4 mls/hr Documented By: NAVNEET Propofol (Diprivan) 1,000 mg in 100 mls @ 0 mls/hr IVCONT .Q0M SANDRA; Protocol Last Titration: 08/21/23 09:09 Dose: 30 mcg/kg/min, 18.23 mls/hr Documented By: NAVNEET Sodium Bicarbonate 150 meq/ (Dextrose) 1,000 mls @ 100 mls/hr IV .Q10H SANDRA Last Admin: 08/21/23 08:46 Dose: 100 mls/hr Documented By: NAVNEET Lidocaine (Lidocaine 4 % Patch Adh..Patch) 2 patch TRANSDERMA DAILY SANDRA; Protocol Last Admin: 08/20/23 10:49 Dose: 2 patch Documented By: AVRIL Ondansetron HCl (Ondansetron Hcl 4 Mg/2 Ml Vial) 4 mg IVPUSH Q6H PRN PRN Reason: Nausea and Vomiting Last Admin: 08/20/23 19:24 Dose: 4 mg Documented By: PRATEEK Pharmacy Consult (Consult Rx Vancomycin Dosing) 1 each MISCELLANE DAILY PRN PRN Reason: Consult order Labs 08/24/23 04:50 08/24/23 04:50 Labs: Laboratory Results - last 24 hr 08/20/23 08/20/23 08/20/23 10:40 16:56 17:11 MCV MCH MCHC RDW Plt Count MPV Immature Gran % (Auto) Neut % (Auto) Lymph % (Auto) [place] % (Auto) Eos % (Auto) Baso % (Auto) Lymph # (Auto) [place] # (Auto) Eos # (Auto) Baso # (Auto) Abs Immat Gran (auto) Absolute Neuts (auto) Absolute Nucleated RBC Nucleated RBC % (auto) Neutrophils % (Manual) Band Neutrophils % Monocytes % (Manual) Abs Neuts (Manual) Monocytes # (Manual) Nucleated RBCs Toxic Granulation Dohle Bodies Platelet Estimate Plt Morphology Comment RBC Morphology Polychromasia Spherocytes Tear Drop Cells [place] Cells Acanthocytes (Spur) Schistocytes O2 Saturation ABG pH at Pt Temp ABG pCO2 at Pt Temp ABG pO2 at Pt Temp ABG HCO3 ABG Base Excess (Actual) VBG pH VBG pCO2 VBG pO2 VBG HCO3 VBG O2 Saturation VBG Base Excess Anion Gap Estim Creat Clear Calc Estimated GFR POC Glucose 54 L* 114 Random Glucose Lactic Acid Lactic Acid F/U @ 4Hr 4.3 H* Calcium Phosphorus Magnesium 08/20/23 08/20/23 08/20/23 18:00 18:20 22:55 MCV MCH MCHC RDW Plt Count MPV Immature Gran % (Auto) Neut % (Auto) Lymph % (Auto) [place] % (Auto) Eos % (Auto) Baso % (Auto) Lymph # (Auto) [place] # (Auto) Eos # (Auto) Baso # (Auto) Abs Immat Gran (auto) Absolute Neuts (auto) Absolute Nucleated RBC Nucleated RBC % (auto) Neutrophils % (Manual) Band Neutrophils % Monocytes % (Manual) Abs Neuts (Manual) Monocytes # (Manual) Nucleated RBCs Toxic Granulation Dohle Bodies Platelet Estimate Plt Morphology Comment RBC Morphology Polychromasia Spherocytes Tear Drop Cells [place] Cells Acanthocytes (Spur) Schistocytes O2 Saturation ABG pH at Pt Temp ABG pCO2 at Pt Temp ABG pO2 at Pt Temp ABG HCO3 ABG Base Excess (Actual) VBG pH 7.42 VBG pCO2 45 VBG pO2 46 VBG HCO3 29 H VBG O2 Saturation 68.0 VBG Base Excess 4.3 Anion Gap Estim Creat Clear Calc Estimated GFR POC Glucose 98 63 Random Glucose Lactic Acid Lactic Acid F/U @ 4Hr Calcium Phosphorus Magnesium 08/20/23 08/21/23 08/21/23 23:22 00:21 05:10 MCV 90.4 MCH 30.1 MCHC 33.3 RDW 14.4 Plt Count 31 L MPV Not Reportable Immature Gran % (Auto) Cancelled Neut % (Auto) Cancelled Lymph % (Auto) Cancelled [place] % (Auto) Cancelled Eos % (Auto) Cancelled Baso % (Auto) Cancelled Lymph # (Auto) Cancelled [place] # (Auto) Cancelled Eos # (Auto) Cancelled Baso # (Auto) Cancelled Abs Immat Gran (auto) Cancelled Absolute Neuts (auto) Cancelled Absolute Nucleated RBC 0.270 H Nucleated RBC % (auto) 0.8 H Neutrophils % (Manual) 71 Band Neutrophils % 22 H Monocytes % (Manual) 7 Abs Neuts (Manual) 31.5 H Monocytes # (Manual) 2.4 H Nucleated RBCs 1 H Toxic Granulation PRESENT Dohle Bodies PRESENT Platelet Estimate DECREASED Plt Morphology Comment NORMAL RBC Morphology NOTED Polychromasia 1+ (0-2) Spherocytes 1+ (0-2) Tear Drop Cells 1+ (0-2) [place] Cells 1+ (0-2) Acanthocytes (Spur) 1+ (0-2) Schistocytes 1+ (0-2) O2 Saturation 95.0 ABG pH at Pt Temp 7.38 ABG pCO2 at Pt Temp 52 H ABG pO2 at Pt Temp 82 L ABG HCO3 31 H ABG Base Excess (Actual) 5.1 VBG pH VBG pCO2 VBG pO2 VBG HCO3 VBG O2 Saturation VBG Base Excess Anion Gap 24 H Estim Creat Clear Calc 12.2 Estimated GFR 9 POC Glucose 130 H Random Glucose 72 Lactic Acid Lactic Acid F/U @ 4Hr Calcium 7.0 L Phosphorus 8.3 H Magnesium 2.2 08/21/23 08/21/23 05:21 08:56 MCV MCH MCHC RDW Plt Count MPV Immature Gran % (Auto) Neut % (Auto) Lymph % (Auto) [place] % (Auto) Eos % (Auto) Baso % (Auto) Lymph # (Auto) [place] # (Auto) Eos # (Auto) Baso # (Auto) Abs Immat Gran (auto) Absolute Neuts (auto) Absolute Nucleated RBC Nucleated RBC % (auto) Neutrophils % (Manual) Band Neutrophils % Monocytes % (Manual) Abs Neuts (Manual) Monocytes # (Manual) Nucleated RBCs Toxic Granulation Dohle Bodies Platelet Estimate Plt Morphology Comment RBC Morphology Polychromasia Spherocytes Tear Drop Cells [place] Cells Acanthocytes (Spur) Schistocytes O2 Saturation ABG pH at Pt Temp ABG pCO2 at Pt Temp ABG pO2 at Pt Temp ABG HCO3 ABG Base Excess (Actual) VBG pH 7.40 VBG pCO2 49 VBG pO2 56 VBG HCO3 31 H VBG O2 Saturation 83.0 VBG Base Excess 5.9 Anion Gap Estim Creat Clear Calc Estimated GFR POC Glucose Random Glucose Lactic Acid 2.9 H* Lactic Acid F/U @ 4Hr Calcium Phosphorus Magnesium Microbiology Microbiology Results: Microbiology 08/18/23 21:45 Blood Culture - Final Blood - Venous Streptococcus pneumoniae 08/18/23 20:17 Blood Culture - Final Blood - Venous Streptococcus pneumoniae Procedures Date of Service Date of Service: 08/24/23 Progress Note: A&P Assessment and plan (1) Septic shock due to Gram positive bacteria: Status: Inactive Assessment and Plan: clinically worsening with multi organ failure ultrasound had suggested edema of the gallbladder wall without gallstones, CT scan did not reveal any inflammatory changes culture show strep pneumonia focus of infection unlikely to be gallbladder therefore abdomen had been benign, nontender critically ill prognosis appears grim discussed with tamale machine feeder Time Spent With Patient Time: Total time managing care of this patient today ____ minutes. Quality Stroke Does the patient have a stroke diagnosis?: No VTE Prior VTE?: No VTE Risk Level:: Medical - moderate - high VTE Device Contraindication: N/A - Device Ordered VTE Drug Contraindication: Treatment Not Tolerated
[2023-08-21 11:01] LABS: Reflex Lactate? Lactic Acid Added
--- NOTE | 2023-08-21 11:17 | P.CONNP_ITS ---
History of Present Illness Reason for Consult Consult date: 08/21/23 <Edwin Ritter MD - Last Filed: 08/21/23 11:17> 08/21/23 <Davidson Miller MD - Last Filed: 08/21/23 13:37> Chief Complaint Chief complaint: Septic Shock, Demand Ischemia <Edwin Ritter MD - Last Filed: 08/21/23 11:17> [facility] Past Medical History Medical History: Medical History Xanthelasma Pulmonary nodules Mild recurrent major depression Emphysema lung Hip bursitis Depression Essential hypertension <Edwin Ritter MD - Last Filed: 08/21/23 11:17> Family History Family History: Family History Mother Leukemia Father Diabetes Heart disease Brother Heart disease Other No family history of cancer <Edwin Ritter MD - Last Filed: 08/21/23 11:17> Surgical History Surgical History: Surgical History Xanthelasma of lower eyelid History of coronary angiogram Hx of left knee surgery H/O cataract removal with insertion of prosthetic lens H/O laminectomy Carpal tunnel syndrome on both sides <Edwin Ritter MD - Last Filed: 08/21/23 11:17> Social History Social History: Social History Household Members: Spouse Housing: House 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 at home: Yes (Son) Do you presently have visiting nurse or other home services: No Unable to assess alcohol history related to: Unknown Alcohol intake: current Alcohol intake frequency: holidays/special occasions only Alcohol type: wine Patient Tobacco Use Status: Former Tobacco user Tobacco use type: Cigarette e-Cigarette/Vaping Use: Never Used Second Hand Smoke Exposure: No Use of substances other than those prescribed or required for medical reasons: No Substance Use Type: Marijuana Currently Displaying Signs/Symptoms of Drug Intoxication Withdrawal: No Advance Directives: No Advance Directives Information Provided: No Do you have thoughts of harming others: None Do you have a plan to hurt others: No Plan Recently lost weight without trying: No Nutrition Risks: Acute nausea or vomiting x1 week Patient : No service: No Current occupational status: employed and retired Cognitive needs: No Hearing needs: No Vision needs: Yes (reading glasses) <Edwin Ritter MD - Last Filed: 08/21/23 11:17> Meds Allergies/Adverse reactions: Allergies Allergy/AdvReac Type Severity Reaction Status Date / Time [id number] Reductase Allergy Severe ANAPHYLACTI Verified 08/18/23 18:47 Inhibitor C [[id number] REDUCTASE INHIBITOR] <Edwin Ritter MD - Last Filed: 08/21/23 11:17> Active Medications: Current Medications Acetaminophen (Acetaminophen 325 Mg Tablet) 650 mg PO Q6H PRN PRN Reason: Fever >101 Last Admin: 08/20/23 13:42 Dose: 650 mg Bupropion HCl (Bupropion Hcl Xl 150 Mg Tab.Er.24h) 150 mg PO DAILY [facility] Last Admin: 08/20/23 08:48 Dose: 150 mg Chlorhexidine Gluconate (Chlorhexidine Gluc Oral Rinse 15 Ml Mouthwash) 15 ml BUCCAL TID [facility] Last Admin: 08/21/23 09:44 Dose: 15 ml Dextrose (Dextrose 50 % 25 Gm/50 Ml Syringe) 25 gm IVPUSH Q15M PRN PRN Reason: per Hypoglycemia Standing Ord. Last Admin: 08/20/23 22:58 Dose: 25 gm Glucose (Glucose Gel 15 Gm Gel..Gram.) 15 gm PO Q15M PRN PRN Reason: per Hypoglycemia Standing Ord. Last Admin: 08/19/23 16:40 Dose: 15 gm Hydrocortisone Sodium Succinate (Hydrocortisone Sod Succ/Pf 100 Mg Vial) 50 mg IVPUSH Q8H [facility] Last Admin: 08/21/23 08:42 Dose: 50 mg Hydromorphone HCl (Hydromorphone Hcl 1 Mg/Ml Syringe) 1 mg IVPUSH Q4H PRN; Protocol PRN Reason: Pain, Moderate(Pain Scale 4-6) Last Admin: 08/20/23 23:46 Dose: 1 mg Norepinephrine Bitartrate (Levophed) 8 mg in 250 mls @ 0 mls/hr IV .Q0M [facility]; Protocol Last Titration: 08/19/23 08:49 Dose: Infused Vasopressin (Vasostrict) 20 unit in 100 mls @ 12 mls/hr IVCONT .Q8H20M [facility] Last Admin: 08/21/23 07:46 Dose: 0.04 unit/min, 12 mls/hr Norepinephrine Bitartrate 32 (mg/ Sodium Chloride) 250 mls @ 0 mls/hr IV .Q0M [facility]; Protocol Last Titration: 08/21/23 09:08 Dose: 0.32 mcg/kg/min, 13.58 mls/hr Cefepime HCl 2 gm/ Sodium (Chloride) 50 mls @ 100 mls/hr IV Q8H [facility] Last Infusion: 08/21/23 02:56 Dose: Infused Metronidazole (Flagyl) 500 mg in 100 mls @ 100 mls/hr IV Q8H [facility] Last Infusion: 08/21/23 03:32 Dose: Infused Bumetanide 25 mg/ IV (Miscellaneous Supplies) 100 mls @ 4 mls/hr IVCONT .Q24H [facility] Last Admin: 08/21/23 07:24 Dose: 1 mg/hr, 4 mls/hr Propofol (Diprivan) 1,000 mg in 100 mls @ 0 mls/hr IVCONT .Q0M [facility]; Protocol Last Titration: 08/21/23 09:09 Dose: 30 mcg/kg/min, 18.23 mls/hr Sodium Bicarbonate 150 meq/ (Dextrose) 1,000 mls @ 100 mls/hr IV .Q10H [facility] Last Admin: 08/21/23 08:46 Dose: 100 mls/hr Sodium Chloride (Ns) 100 mls @ 100 mls/hr IV ONCE ONE Stop: 08/21/23 11:40 Lidocaine (Lidocaine 4 % Patch Adh..Patch) 2 patch TRANSDERMA DAILY [facility]; Protocol Last Admin: 08/21/23 10:20 Dose: Not Given Ondansetron HCl (Ondansetron Hcl 4 Mg/2 Ml Vial) 4 mg IVPUSH Q6H PRN PRN Reason: Nausea and Vomiting Last Admin: 08/20/23 19:24 Dose: 4 mg Pharmacy Consult (Consult Rx Vancomycin Dosing) 1 each MISCELLANE DAILY PRN PRN Reason: Consult order <Edwin Ritter MD - Last Filed: 08/21/23 11:17> Home medications: Home Medications Medication Instructions Recorded Confirmed Last Taken Type clopidogrel 75 mg tablet (Plavix) 75 mg PO DAILY 06/28/20 08/19/23 Unknown History alirocumab 150 mg/mL subcutaneous 150 mg subcut Q2W 06/17/22 08/19/23 Unknown History pen injector (Praluent Pen) <Edwin Ritter MD - Last Filed: 08/21/23 11:17> Physical Exam Vital Signs: Last Vital Signs Temp 101.1 F H 08/21/23 11:00 Pulse 105 H 08/21/23 11:00 Resp 21 H 08/21/23 11:00 BP 130/67 08/21/23 11:00 Pulse Ox 93 08/21/23 11:00 O2 Del Method Mechanical Ventilation 08/21/23 11:00 O2 Flow Rate 55 08/20/23 18:00 FiO2 50 08/21/23 11:00 BMI result Body Mass Index 36.9 <Edwin Ritter MD - Last Filed: 08/21/23 11:17> Results Lab Results Result Diagrams: 08/21/23 05:10 08/21/23 05:10 <Edwin Ritter MD - Last Filed: 08/21/23 11:17> Lab results: Chemistry 08/18/23 08/19/23 08/19/23 20:18 01:38 04:38 Sodium 133 L 131 L 130 L Potassium 3.7 3.6 3.5 Carbon Dioxide 21 L 15 L 15 L BUN 21 H 24 H 26 H Creatinine 2.52 H 2.90 H 2.99 H Calcium 8.7 D 7.5 L D 7.0 L D Phosphorus 5.1 H 08/19/23 08/20/23 08/21/23 09:18 05:07 05:10 Sodium 134 L 130 L 131 L Potassium 3.7 4.4 4.7 Carbon Dioxide 27 BUN 28 H 40 H 66 H Creatinine 3.11 H 3.78 H 4.95 H* Calcium 7.2 L 7.1 L 7.0 L Phosphorus 8.3 H Hematology 08/18/23 08/19/23 08/19/23 20:18 01:38 04:38 WBC 5.0 5.1 8.3 Hgb 13.1 11.3 L 10.9 L Plt Count 133 L D 68 L D 56 L 08/19/23 08/19/23 08/20/23 09:18 18:27 05:06 WBC 11.2 H 17.4 H 20.8 H Hgb 10.4 L 10.7 L 9.9 L Plt Count 47 L 45 L 41 L 08/21/23 05:10 WBC 33.9 H* Hgb 10.1 L Plt Count 31 L Urinalysis 08/18/23 20:34 Urine Color Yellow Urine Appearance Clear Urine pH 6.0 Ur Specific [place] 1.010 Urine Protein Negative Urine Glucose (UA) Negative Urine Ketones Negative Urine Blood Trace H Urine Nitrite Negative Ur Leukocyte Esterase Negative Urine RBC 6-10 H Urine WBC 0-5 Ur Squamous Epith Cells 0-2 Hyaline Casts 0-2 <Edwin Ritter MD - Last Filed: 08/21/23 11:17> Procedures Date of Service Date of Service: 08/21/23 <Edwin Ritter MD - Last Filed: 08/21/23 11:17> 08/21/23 <Davidson Miller MD - Last Filed: 08/21/23 13:37>
--- NOTE | 2023-08-21 11:18 | P.PNNP_ITS ---
Subjective Subjective Date of Service: 08/21/23 Interval history: [facility] called for GEOPHYSICAL DATA TECHNICIAN evaluation FUll consult to follow Physical Exam 2 Vital Signs: Vital Signs: Last Vital Signs Temp 101.1 F H 08/21/23 11:00 Pulse 105 H 08/21/23 11:00 Resp 21 H 08/21/23 11:00 BP 130/67 08/21/23 11:00 Pulse Ox 93 08/21/23 11:00 O2 Del Method Mechanical Ventil ation 08/21/23 11:00 O2 Flow Rate 55 08/20/23 18:00 FiO2 50 08/21/23 11:00 BMI result Body Mass Index 36.9 Objective Data Labs 08/21/23 05:10 08/21/23 05:10 Labs: Laboratory Results - last 24 hr 08/20/23 08/20/23 08/20/23 16:56 17:11 18:00 WBC RBC Hgb Hct MCV MCH MCHC RDW Plt Count MPV Immature Gran % (Auto) Neut % (Auto) Lymph % (Auto) [place] % (Auto) Eos % (Auto) Baso % (Auto) Lymph # (Auto) [place] # (Auto) Eos # (Auto) Baso # (Auto) Abs Immat Gran (auto) Absolute Neuts (auto) Absolute Nucleated RBC Nucleated RBC % (auto) Neutrophils % (Manual) Band Neutrophils % Monocytes % (Manual) Abs Neuts (Manual) Monocytes # (Manual) Nucleated RBCs Toxic Granulation Dohle Bodies Platelet Estimate Plt Morphology Comment RBC Morphology Polychromasia Spherocytes Tear Drop Cells [place] Cells Acanthocytes (Spur) Schistocytes O2 Saturation ABG pH at Pt Temp ABG pCO2 at Pt Temp ABG pO2 at Pt Temp ABG HCO3 ABG Base Excess (Actual) VBG pH VBG pCO2 VBG pO2 VBG HCO3 VBG O2 Saturation VBG Base Excess Sodium Potassium Chloride Carbon Dioxide Anion Gap BUN Creatinine Estim Creat Clear Calc Estimated GFR POC Glucose 54 L* 114 98 Random Glucose Lactic Acid Calcium Phosphorus Magnesium 08/20/23 08/20/23 08/20/23 18:20 22:55 23:22 WBC RBC Hgb Hct MCV MCH MCHC RDW Plt Count MPV Immature Gran % (Auto) Neut % (Auto) Lymph % (Auto) [place] % (Auto) Eos % (Auto) Baso % (Auto) Lymph # (Auto) [place] # (Auto) Eos # (Auto) Baso # (Auto) Abs Immat Gran (auto) Absolute Neuts (auto) Absolute Nucleated RBC Nucleated RBC % (auto) Neutrophils % (Manual) Band Neutrophils % Monocytes % (Manual) Abs Neuts (Manual) Monocytes # (Manual) Nucleated RBCs Toxic Granulation Dohle Bodies Platelet Estimate Plt Morphology Comment RBC Morphology Polychromasia Spherocytes Tear Drop Cells [place] Cells Acanthocytes (Spur) Schistocytes O2 Saturation ABG pH at Pt Temp ABG pCO2 at Pt Temp ABG pO2 at Pt Temp ABG HCO3 ABG Base Excess (Actual) VBG pH 7.42 VBG pCO2 45 VBG pO2 46 VBG HCO3 29 H VBG O2 Saturation 68.0 VBG Base Excess 4.3 Sodium Potassium Chloride Carbon Dioxide Anion Gap BUN Creatinine Estim Creat Clear Calc Estimated GFR POC Glucose 63 130 H Random Glucose Lactic Acid Calcium Phosphorus Magnesium 08/21/23 08/21/23 08/21/23 00:21 05:10 05:21 WBC 33.9 H* RBC 3.35 L Hgb 10.1 L Hct 30.3 L MCV 90.4 MCH 30.1 MCHC 33.3 RDW 14.4 Plt Count 31 L MPV Not Reportable Immature Gran % (Auto) Cancelled Neut % (Auto) Cancelled Lymph % (Auto) Cancelled [place] % (Auto) Cancelled Eos % (Auto) Cancelled Baso % (Auto) Cancelled Lymph # (Auto) Cancelled [place] # (Auto) Cancelled Eos # (Auto) Cancelled Baso # (Auto) Cancelled Abs Immat Gran (auto) Cancelled Absolute Neuts (auto) Cancelled Absolute Nucleated RBC 0.270 H Nucleated RBC % (auto) 0.8 H Neutrophils % (Manual) 71 Band Neutrophils % 22 H Monocytes % (Manual) 7 Abs Neuts (Manual) 31.5 H Monocytes # (Manual) 2.4 H Nucleated RBCs 1 H Toxic Granulation PRESENT Dohle Bodies PRESENT Platelet Estimate DECREASED Plt Morphology Comment NORMAL RBC Morphology NOTED Polychromasia 1+ (0-2) Spherocytes 1+ (0-2) Tear Drop Cells 1+ (0-2) [place] Cells 1+ (0-2) Acanthocytes (Spur) 1+ (0-2) Schistocytes 1+ (0-2) O2 Saturation 95.0 ABG pH at Pt Temp 7.38 ABG pCO2 at Pt Temp 52 H ABG pO2 at Pt Temp 82 L ABG HCO3 31 H ABG Base Excess (Actual) 5.1 VBG pH 7.40 VBG pCO2 49 VBG pO2 56 VBG HCO3 31 H VBG O2 Saturation 83.0 VBG Base Excess 5.9 Sodium 131 L Potassium 4.7 Chloride 85 L Carbon Dioxide 27 Anion Gap 24 H BUN 66 H Creatinine 4.95 H* Estim Creat Clear Calc 12.2 Estimated GFR 9 POC Glucose Random Glucose 72 Lactic Acid Calcium 7.0 L Phosphorus 8.3 H Magnesium 2.2 08/21/23 08:56 WBC RBC Hgb Hct MCV MCH MCHC RDW Plt Count MPV Immature Gran % (Auto) Neut % (Auto) Lymph % (Auto) [place] % (Auto) Eos % (Auto) Baso % (Auto) Lymph # (Auto) [place] # (Auto) Eos # (Auto) Baso # (Auto) Abs Immat Gran (auto) Absolute Neuts (auto) Absolute Nucleated RBC Nucleated RBC % (auto) Neutrophils % (Manual) Band Neutrophils % Monocytes % (Manual) Abs Neuts (Manual) Monocytes # (Manual) Nucleated RBCs Toxic Granulation Dohle Bodies Platelet Estimate Plt Morphology Comment RBC Morphology Polychromasia Spherocytes Tear Drop Cells [place] Cells Acanthocytes (Spur) Schistocytes O2 Saturation ABG pH at Pt Temp ABG pCO2 at Pt Temp ABG pO2 at Pt Temp ABG HCO3 ABG Base Excess (Actual) VBG pH VBG pCO2 VBG pO2 VBG HCO3 VBG O2 Saturation VBG Base Excess Sodium Potassium Chloride Carbon Dioxide Anion Gap BUN Creatinine Estim Creat Clear Calc Estimated GFR POC Glucose Random Glucose Lactic Acid 2.9 H* Calcium Phosphorus Magnesium Microbiology Microbiology Results: Microbiology 08/18/23 21:45 Blood - Venous Blood Culture - Final Streptococcus pneumoniae 08/18/23 20:17 Blood - Venous Blood Culture - Final Streptococcus pneumoniae Procedures Date of Service Date of Service: 08/21/23 Assessment & Plan Time Spent With Patient Time: Total time managing care of this patient today ____ minutes. Progress Note: Quality Stroke Does the patient have a stroke diagnosis?: No
--- NOTE | 2023-08-21 11:26 | MHC.CLN ---
NUTRITION PATIENT INTUBATED AND SEDATED 08/21. PATIENT WITH MULTI SYSTEM ORGAN FAILURE. IF ABLE TO BEGIN TUBE FEEDING, RECOMMEND NEPRO AT 25 ML PER HOUR MAX GOAL RATE WITH FREE WATER FLUSHES 120 ML Q 6 HOURS. PROVIDES 1080 KCALS (1561 KCALS WITH SEDATION, 26.4 KCALS/KG IBW); 49 G PROTEIN (.82 G/KG IBW); 916 ML FREE WATER FROM FORMULA (436 ML) AND FLUSH (916 ML), 15.5 ML/KG IBW. FOLLOW WITH TEAM FOR NUTRITIONAL NEEDS AND PLAN OF CARE.
[2023-08-21 11:34] LABS: ~Lactic Acid-LAB USE ONLY 3.7 mmol/L (0.5-2.0)
[2023-08-21 11:50] LABS: Adenovirus PCR Not Detected (Not Detect.); Bordetella parapertussis PCR Not Detected (Not Detect.); Bordetella pertussis PCR Not Detected (Not Detect.); Chlamydia pneumoniae PCR Not Detected (Not Detect.); Coronavirus 229E PCR Not Detected (Not Detect.); Coronavirus HKU1 PCR Not Detected (Not Detect.); Coronavirus NL63 PCR Not Detected (Not Detect.); Coronavirus OC43 PCR Not Detected (Not Detect.); Human metapneumovirus PCR Not Detected (Not Detect.); Influenza A PCR Not Detected (Not Detect.); Influenza B PCR Not Detected (Not Detect.); Mycoplasma pneumoniae PCR Not Detected (Not Detect.); Parainfluenza 1 PCR Not Detected (Not Detect.); Parainfluenza 2 PCR Not Detected (Not Detect.); Parainfluenza 3 PCR Not Detected (Not Detect.); Parainfluenza 4 PCR Not Detected (Not Detect.); RSV PCR Not Detected (Not Detect.); Rhino/Enterovirus PCR Detected (Not Detect.)
[2023-08-21 12:06] LABS: SARS-CoV-2 PCR Not Detected (Not Detect.)
--- NOTE | 2023-08-21 12:40 | W.PM.CCHP ---
Procedures Date of Service Date of Service: 08/21/23 Central Line Placement Left IJ: Central Line Comments: hemodialysis catheter Consent for Procedure: Elective - informed consent obtained Time out performed: Yes Sterile Technique Used: Yes Patient placed on monitor/pulse ox: Yes MD prep: mask, gown, gloves and other Central line prep: Chlorhexidine scrub Ultrasound used for placement: Yes Central line lumen inserted: triple Post procedure: sutured in place, good blood return, all ports aspirated, flushed, capped and sterile dressing applied Patient tolerated procedure: well and no complications Complications: none
[2023-08-21] MEDS: propofoL 1,000 MG/100 ML VIAL 18.23 MG IVCONT ×3 (13:08→23:33)
[2023-08-21 13:20] LABS: Reflex Lactate? 2 Y
[2023-08-21] MEDS: Dextrose 50 % 25 GM/50 ML SYRINGE IVPUSH (13:27)
--- NOTE | 2023-08-21 13:27 | P.CONNP_ITS ---
History of Present Illness Reason for Consult Consult date: 08/21/23 Chief Complaint Chief complaint: Septic Shock, Demand Ischemia History of Present Illness Narrative: Ms. Tasha Nieto is a 73-year-old female with past medical history of sarcoid, rheumatoid arthritis (on abatacept & prednisone) who presented on 08/18 w/ encephalopathy, found to have left upper lobe pneumonia, c/b acute hypoxic respiratory failure, gram positive cocci bacteremia, c/b septic shock. While on pressors and s/p Volume support, patient became oliguric with Volume overload refractory to IV diuretic gtt. [facility] Past Medical History Medical History Xanthelasma Pulmonary nodules Mild recurrent major depression Emphysema lung Hip bursitis Depression Essential hypertension Family History Family History Mother Leukemia Father Diabetes Heart disease Brother Heart disease Other No family history of cancer Surgical History Surgical History Xanthelasma of lower eyelid History of coronary angiogram Hx of left knee surgery H/O cataract removal with insertion of prosthetic lens H/O laminectomy Carpal tunnel syndrome on both sides Social History Social History Household Members: Spouse Housing: House 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 at home: Yes (Son) Do you presently have visiting nurse or other home services: No Unable to assess alcohol history related to: Unknown Alcohol intake: current Alcohol intake frequency: holidays/special occasions only Alcohol type: wine Patient Tobacco Use Status: Former Tobacco user Tobacco use type: Cigarette e-Cigarette/Vaping Use: Never Used Second Hand Smoke Exposure: No Use of substances other than those prescribed or required for medical reasons: No Substance Use Type: Marijuana Currently Displaying Signs/Symptoms of Drug Intoxication Withdrawal: No Advance Directives: No Advance Directives Information Provided: No Do you have thoughts of harming others: None Do you have a plan to hurt others: No Plan Recently lost weight without trying: No Nutrition Risks: Acute nausea or vomiting x1 week Patient : No service: No Current occupational status: employed and retired Cognitive needs: No Hearing needs: No Vision needs: Yes (reading glasses) Meds Allergies Allergy/AdvReac Type Severity Reaction Status Date / Time [id number] Reductase Allergy Severe ANAPHYLACTI Verified 08/18/23 18:47 Inhibitor C [[id number] REDUCTASE INHIBITOR] Active Medications: Current Medications Acetaminophen (Acetaminophen 325 Mg Tablet) 650 mg PO Q6H PRN PRN Reason: Fever >101 Last Admin: 08/20/23 13:42 Dose: 650 mg Bupropion HCl (Bupropion Hcl Xl 150 Mg Tab.Er.24h) 150 mg PO DAILY [facility] Last Admin: 08/20/23 08:48 Dose: 150 mg Chlorhexidine Gluconate (Chlorhexidine Gluc Oral Rinse 15 Ml Mouthwash) 15 ml BUCCAL TID [facility] Last Admin: 08/21/23 09:44 Dose: 15 ml Dextrose (Dextrose 50 % 25 Gm/50 Ml Syringe) 25 gm IVPUSH Q15M PRN PRN Reason: per Hypoglycemia Standing Ord. Last Admin: 08/20/23 22:58 Dose: 25 gm Glucose (Glucose Gel 15 Gm Gel..Gram.) 15 gm PO Q15M PRN PRN Reason: per Hypoglycemia Standing Ord. Last Admin: 08/19/23 16:40 Dose: 15 gm Hydrocortisone Sodium Succinate (Hydrocortisone Sod Succ/Pf 100 Mg Vial) 50 mg IVPUSH Q8H [facility] Last Admin: 08/21/23 08:42 Dose: 50 mg Hydromorphone HCl (Hydromorphone Hcl 1 Mg/Ml Syringe) 1 mg IVPUSH Q4H PRN; Protocol PRN Reason: Pain, Moderate(Pain Scale 4-6) Last Admin: 08/20/23 23:46 Dose: 1 mg Norepinephrine Bitartrate (Levophed) 8 mg in 250 mls @ 0 mls/hr IV .Q0M [facility]; Protocol Last Titration: 08/19/23 08:49 Dose: Infused Vasopressin (Vasostrict) 20 unit in 100 mls @ 12 mls/hr IVCONT .Q8H20M [facility] Last Admin: 08/21/23 07:46 Dose: 0.04 unit/min, 12 mls/hr Norepinephrine Bitartrate 32 (mg/ Sodium Chloride) 250 mls @ 0 mls/hr IV .Q0M [facility]; Protocol Last Titration: 08/21/23 12:30 Dose: 0.26 mcg/kg/min, 11.03 mls/hr Cefepime HCl 2 gm/ Sodium (Chloride) 50 mls @ 100 mls/hr IV Q8H [facility] Last Infusion: 08/21/23 12:15 Dose: Infused Metronidazole (Flagyl) 500 mg in 100 mls @ 100 mls/hr IV Q8H [facility] Last Infusion: 08/21/23 12:44 Dose: Infused Propofol (Diprivan) 1,000 mg in 100 mls @ 0 mls/hr IVCONT .Q0M [facility]; Protocol Last Admin: 08/21/23 13:08 Dose: 30 mcg/kg/min, 18.23 mls/hr Lidocaine (Lidocaine 4 % Patch Adh..Patch) 2 patch TRANSDERMA DAILY [facility]; Protocol Last Admin: 08/21/23 10:20 Dose: Not Given Ondansetron HCl (Ondansetron Hcl 4 Mg/2 Ml Vial) 4 mg IVPUSH Q6H PRN PRN Reason: Nausea and Vomiting Last Admin: 08/20/23 19:24 Dose: 4 mg Pharmacy Consult (Consult Rx Vancomycin Dosing) 1 each MISCELLANE DAILY PRN PRN Reason: Consult order Home Medications Medication Instructions Recorded Confirmed Last Taken Type clopidogrel 75 mg tablet (Plavix) 75 mg PO DAILY 06/28/20 08/19/23 Unknown History alirocumab 150 mg/mL subcutaneous 150 mg subcut Q2W 06/17/22 08/19/23 Unknown History pen injector (Praluent Pen) Physical Exam Vital Signs: Last Vital Signs Temp 101.7 F H 08/21/23 12:36 Pulse 105 H 08/21/23 12:36 Resp 30 H 08/21/23 12:36 BP 128/60 08/21/23 12:36 Pulse Ox 96 08/21/23 12:00 O2 Del Method Mechanical Ventilation 08/21/23 12:00 O2 Flow Rate 55 08/20/23 18:00 FiO2 50 08/21/23 12:09 BMI result Body Mass Index 36.9 Const Other: intubated, sedated Resp Other: on ventilator Cardio Rate: tachycardic Rhythm: regular rhythm GI Inspection: Yes normal to inspection and No distended Palpation (GI): not firm, nontender, no guarding and not rigid Neuro Other: intubated, sedated Extrem Other: non-pitting edema throughout Results Lab Results 08/21/23 05:10 08/21/23 05:10 Lab results: Chemistry 08/18/23 08/19/23 08/19/23 20:18 01:38 04:38 Sodium 133 L 131 L 130 L Potassium 3.7 3.6 3.5 Carbon Dioxide 21 L 15 L 15 L BUN 21 H 24 H 26 H Creatinine 2.52 H 2.90 H 2.99 H Calcium 8.7 D 7.5 L D 7.0 L D Phosphorus 5.1 H 08/19/23 08/20/23 08/21/23 09:18 05:07 05:10 Sodium 134 L 130 L 131 L Potassium 3.7 4.4 4.7 Carbon Dioxide 22 22 27 BUN 28 H 40 H 66 H Creatinine 3.11 H 3.78 H 4.95 H* Calcium 7.2 L 7.1 L 7.0 L Phosphorus 8.3 H Hematology 08/18/23 08/19/23 08/19/23 20:18 01:38 04:38 WBC 5.0 5.1 8.3 Hgb 13.1 11.3 L 10.9 L Plt Count 133 L D 68 L D 56 L 08/19/23 08/19/23 08/20/23 09:18 18:27 05:06 WBC 11.2 H 17.4 H 20.8 H Hgb 10.4 L 10.7 L 9.9 L Plt Count 47 L 45 L 41 L 08/21/23 05:10 WBC 33.9 H* Hgb 10.1 L Plt Count 31 L Urinalysis 08/18/23 20:34 Urine Color Yellow Urine Appearance Clear Urine pH 6.0 Ur Specific [place] 1.010 Urine Protein Negative Urine Glucose (UA) Negative Urine Ketones Negative Urine Blood Trace H Urine Nitrite Negative Ur Leukocyte Esterase Negative Urine RBC 6-10 H Urine WBC 0-5 Ur Squamous Epith Cells 0-2 Hyaline Casts 0-2 Assessment and Plan (1) Septic shock due to Gram positive bacteria: Status: Acute clinically worsening with multi organ failure ultrasound had suggested edema of the gallbladder wall without gallstones, CT scan did not reveal any inflammatory changes culture show strep pneumonia focus of infection unlikely to be gallbladder therefore abdomen had been benign, nontender critically ill prognosis appears grim discussed with porcelain enamel repairer Plan Ms. 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 Course is complicated by BRE, and volume overload refractory to IV diuresis. Etiology of BRE: A) Pre-renal unlikely given the lack of response to Pressors and IVF support B) ATN from sepsis and inflammatory cytokine storm is very likely. ALso patient underwent couple bouts of CT contrast . C) Glomerular disease given sarcoid and RA history is possible. D) AIN is always on the differential E) infectious GN is possible as well. F) Obstruction has been ruled out. Plan: - C3, C4, SPEP, K/L, Immunofix, MARNI level ordered - ANCA ordered - Will defer renal biopsy until labs result - MACHINE TAPER is indicated for refractory volume overload - iHD today with BFR 300ml/min and 3K bath for 3 hours. UF goal 2-3L - iHD again tomorrow for volume removal - ok to stop diuretics and bicarb gtt. Thank you for calling [facility] executive director contract shop 13/04. Procedures Date of Service Date of Service: 08/21/23
[2023-08-21] MEDS: Dextrose 5 % and Lactated Ring 1,000 ML 50 ML IVCONT (13:35)
[2023-08-21 13:36] LABS: Glucose, Whole Blood 23 mg/dL (60-115)
[2023-08-21 13:36] LABS: Glucose, Whole Blood 37 mg/dL (60-115)
[2023-08-21 13:48] LABS: Glucose, Whole Blood 75 mg/dL (60-115)
[2023-08-21 13:58] LABS: Lactate Dehydrogenase 1048 U/L (122-220)
--- NOTE | 2023-08-21 16:24 | MHC.CM.PN ---
EMR REVIEWED, PT REMAINS INTUBATED/SEDATED, PER CC PROVIDER WILL DISCUSS HD W/FAMILY, NO PLAN FOR DC AT THIS TIME, CM WILL CONT TO FOLLOW.
[2023-08-21 17:51] LABS: Appearance Urine Turbid; Color Urine Yellow; Glucose Urine UA Negative (Negative); Leukocyte Esterase Urine Negative (Negative); Nitrite Urine Negative (Negative); UMIC TRIGGER UA YES; Urine Blood Large (3+) (Negative); Urine Ketones Negative (Negative); Urine Protein 100 (2+) mg/dL (Neg-Trace)
[2023-08-21 17:55] LABS: Bacteria Urine None Seen (None Seen); Hyaline Casts Urine 0-2 /LPF (0-2); RBC Urine >20 /HPF (0-2); Squamous Epithelial Cell Urine 0-2 /HPF (0-2); WBC Urine 0-5 /HPF (0-5)
[2023-08-21 18:08] LABS: Creatinine Urine 20.19 mg/dL; Total Protein Urine Random 73 mg/dL (<12)
[2023-08-21 18:15] LABS: Glucose, Whole Blood 86 mg/dL (60-115)
[2023-08-21 18:25] LABS: Anion Gap 20 (12-20); Blood Urea Nitrogen 58 mg/dL (9-16); Calcium 7.6 mg/dL (8.4-10.2); Carbon Dioxide 27 mmol/L (22-29); Chloride 89 mmol/L (96-108); Estimated Glomerular Filt Rate 9; Glucose Random 115 mg/dL (60-115); Magnesium 2.1 mg/dL (1.6-2.6); Phosphorus 6.7 mg/dL (2.7-4.5); Potassium 4.4 mmol/L (3.3-5.1); Sodium 132 mmol/L (135-145)
[2023-08-21 18:52] LABS: Haptoglobin 156 MG/DL ((30-200))
[2023-08-21 23:56] LABS: Glucose, Whole Blood 95 mg/dL (60-115)
[2023-08-22] VITALS (59 sets, daily range): BP systolic 81–152; BP diastolic 34–80; PULSE 73–118; RESP 15–84; TEMP 34–39; O2SAT 93–100; BMI 35.9
[2023-08-22] MEDS: Acetaminophen Oral Liquid 650 MG/20.3 ML SOLUTION PO (00:14)
[2023-08-22] MEDS: Hydrocortisone Sod Succ/PF 100 MG VIAL 50 MG IVPUSH ×3 (00:15→16:46)
[2023-08-22] MEDS: HYDROmorphone HCl 1 MG/ML SYRINGE IVPUSH ×2 (02:47→19:30)
[2023-08-22] MEDS: metroNIDAZOLE/NS 500 MG/100 ML PIGGYBACK 100 MG IV ×3 (02:53→18:26)
[2023-08-22] MEDS: cefEPime HCl 2 GM in 0.9 % Sodium Chloride 50 ML IV ×2 (02:53→11:04)
[2023-08-22] MEDS: propofoL 1,000 MG/100 ML VIAL 18.23 MG IVCONT ×2 (04:26→21:33)
[2023-08-22 05:29] LABS: VBG HCO3 29 mmol/L (22-26); VBG pCO2 41 mmHg; VBG pH 7.45 (7.32-7.43); VBG pO2 60 mmHg
[2023-08-22 05:36] LABS: Venous Blood Gas Refer to POC result
[2023-08-22 06:37] LABS: Anion Gap 20 (12-20); Blood Urea Nitrogen 69 mg/dL (9-16); Calcium 7.1 mg/dL (8.4-10.2); Carbon Dioxide 26 mmol/L (22-29); Chloride 89 mmol/L (96-108); Creatinine Clr Calc Pharmacy 11.4; Estimated Glomerular Filt Rate 8; Glucose Random 136 mg/dL (60-115); Magnesium 2.3 mg/dL (1.6-2.6); Phosphorus 6.8 mg/dL (2.7-4.5); Potassium 4.1 mmol/L (3.3-5.1); Sodium 131 mmol/L (135-145)
[2023-08-22 06:46] LABS: Hematocrit 26.9 % (37.0-47.0); Hemoglobin 9.3 g/dl (12.0-16.0); Mean Corpuscular HGB Conc 34.6 g/dl (31.0-35.0); Mean Corpuscular Hemoglobin 31.5 pg (27.0-33.0); Mean Corpuscular Volume 91.2 fL (80.0-98.0); Mean Platelet Volume 13.5 fL (9.4-12.3); NRBC Pct Auto 0.7 /100WBC (0.0-0.2); PLT ABN DIST 1; Platelet Count 55 X10*3/uL (160-400); Red Blood Count 2.95 X10*6/uL (4.20-5.50); Red Cell Distribution Width 14.3 % (11.0-16.0); WBC ABN SCTR FOR CBC 1
[2023-08-22 07:16] LABS: Atypical Lymph Absolute Manual 0.4 x10*3/uL; Atypical Lymphs Percent Manual 1 % (0-6); Band Neutrophils Percent 14 % (3-5); Lymphocytes Absolute Manual 1.8 X10*3/uL (1.2-4.9); Lymphocytes Percent Manual 5 % (20-40); Monocytes Absolute Manual 2.5 X10*3/uL (0.1-1.2); Monocytes Percent Manual 7 % (2-11); Neutrophils Absolute Manual 30.5 X10*3/uL (2.0-8.3); Neutrophils Percent Manual 73 % (45-73); Nucleated Red Blood Cells 1 /100WBC (0-0)
[2023-08-22 07:23] LABS: Acanthocytes 1+ (0-2) /OIF; Burr Cells 1+ (0-2) /OIF; Dohle Bodies PRESENT; Hypochromasia 1+ (5-14) /OIF; Large Platelet PRESENT; Platelet Estimate DECREASED (NORMAL); Platelet Morphology Comment NOTED; Polychromasia 1+ (0-2) /OIF; RBC Morphology NOTED; Schistocytes 1+ (0-2) /OIF; Spherocytes 1+ (0-2) /OIF
[2023-08-22] MEDS: Chlorhexidine Gluc Oral Rinse 15 ML MOUTHWASH BUCCAL ×3 (07:31→21:33)
[2023-08-22] MEDS: Vasopressin 20 UNIT/100 ML INFUS..BTL 12 UNIT IVCONT ×2 (07:50→16:10)
--- NOTE | 2023-08-22 08:00 | PM.CCPN ---
Subjective Subjective Date of Service: 08/22/23 Interval History: no significant overnight events; second hemodialysis session started Critical Care Time (minutes): 90 Physical Exam Vital Signs: Vital Signs: Last Vital Signs Temp 99.9 F 08/22/23 07:00 Pulse 73 08/22/23 07:50 Resp 20 08/22/23 07:00 BP 100/40 L 08/22/23 07:50 Pulse Ox 97 08/22/23 07:00 O2 Del Method Mechanical Ventil ation 08/22/23 07:00 O2 Flow Rate 55 08/20/23 18:00 FiO2 40 08/22/23 07:45 BMI result Body Mass Index 35.9 Const: Other: intubated, sedated General: no acute distress and well developed HEENT: Head: Yes normal to inspection, Yes normocephalic and Yes atraumatic Eyes: General: appearance normal, both eyes and all related structures Neck: Neck: Yes normal visual inspection and Yes supple Chest: Chest palpation & inspection: normal inspection of the chest Resp: Other: appreciable rhonchi, R greater than L Cardio: Rate: regular rate Rhythm: regular rhythm GI: Inspection: Yes normal to inspection, No Abdominal wall edema and No distended Palpation (GI): Soft to palpation, not firm, nontender, no guarding and not rigid Skin: Other: appreciable scattered purpura Neuro: Other: intubated, sedated; no appreciable spontaneous movements Extrem: Other: 1+ pitting edema throughout General: Yes normal to inspection and Yes capillary refill normal Psych: Other: unable to assess Objective Data Labs 08/22/23 05:24 08/22/23 05:24 Labs: Laboratory Results - last 24 hr 08/19/23 08/21/23 08/21/23 21:21 08:56 11:12 WBC RBC Hgb Hct MCV MCH MCHC RDW Plt Count MPV Immature Gran % (Auto) Neut % (Auto) Lymph % (Auto) [place] % (Auto) Eos % (Auto) Baso % (Auto) Lymph # (Auto) [place] # (Auto) Eos # (Auto) Baso # (Auto) Abs Immat Gran (auto) Absolute Neuts (auto) Absolute Nucleated RBC Nucleated RBC % (auto) Neutrophils % (Manual) Band Neutrophils % Lymphocytes % (Manual) Atypical Lymphs % (Man) Monocytes % (Manual) Abs Neuts (Manual) Lymphocytes # (Manual) Atyp Lymphs # (Manual) Monocytes # (Manual) Nucleated RBCs Dohle Bodies Platelet Estimate Large Platelets Plt Morphology Comment RBC Morphology Polychromasia Hypochromasia Spherocytes [place] Cells Acanthocytes (Spur) Schistocytes Haptoglobin VBG pH VBG pCO2 VBG pO2 VBG HCO3 VBG O2 Saturation VBG Base Excess Sodium Potassium Chloride Carbon Dioxide Anion Gap BUN Creatinine Estim Creat Clear Calc Estimated GFR POC Glucose Random Glucose Lactic Acid 2.9 H* Lactic Acid F/U @ 2Hr 3.7 H* Lactic Acid F/U @ 4Hr Calcium Phosphorus Magnesium Lactate Dehydrogenase Urine Color Urine Appearance Urine pH Ur Specific [place] Urine Protein Urine Glucose (UA) Urine Ketones Urine Blood Urine Nitrite Ur Leukocyte Esterase Urine RBC Urine WBC Ur Squamous Epith Cells Urine Bacteria Hyaline Casts U Random Total Protein Ur Random Sodium Urine Creatinine Respiratory Panel [place] See Note Adenovirus (Rapid PCR) Not Detected B.pert (TEM-PCR) Not Detected B.parapertussis DNA PCR Not Detected C. pneumoniae DNA (PCR) Not Detected Coronavirus OC43 (PCR) Not Detected Coronavirus HKU1 (PCR) Not Detected Coronavirus 229E (PCR) Not Detected Coronavirus NL63 (PCR) Not Detected Human Metapneumovir PCR Not Detected Influenza A (RT-PCR) Not Detected Influenza B (RT-PCR) Not Detected M. pneumoniae (PCR) Not Detected Parainfluenza 1 (PCR) Not Detected Parainfluenza 2 (PCR) Not Detected Parainfluenza 3 (PCR) Not Detected Parainfluenza 4 (PCR) Not Detected RSV (PCR) Not Detected Entero/Rhino (PCR) Detected A SARS-CoV-2 RNA (RT-PCR) Not Detected Blood Type O Positive Antibody Screen NEGATIVE 08/21/23 08/21/23 08/21/23 13:21 13:26 13:31 WBC RBC Hgb Hct MCV MCH MCHC RDW Plt Count MPV Immature Gran % (Auto) Neut % (Auto) Lymph % (Auto) [place] % (Auto) Eos % (Auto) Baso % (Auto) Lymph # (Auto) [place] # (Auto) Eos # (Auto) Baso # (Auto) Abs Immat Gran (auto) Absolute Neuts (auto) Absolute Nucleated RBC Nucleated RBC % (auto) Neutrophils % (Manual) Band Neutrophils % Lymphocytes % (Manual) Atypical Lymphs % (Man) Monocytes % (Manual) Abs Neuts (Manual) Lymphocytes # (Manual) Atyp Lymphs # (Manual) Monocytes # (Manual) Nucleated RBCs Dohle Bodies Platelet Estimate Large Platelets Plt Morphology Comment RBC Morphology Polychromasia Hypochromasia Spherocytes [place] Cells Acanthocytes (Spur) Schistocytes Haptoglobin 156 VBG pH VBG pCO2 VBG pO2 VBG HCO3 VBG O2 Saturation VBG Base Excess Sodium Potassium Chloride Carbon Dioxide Anion Gap BUN Creatinine Estim Creat Clear Calc Estimated GFR POC Glucose 37 L* 23 L* Random Glucose Lactic Acid Lactic Acid F/U @ 2Hr Lactic Acid F/U @ 4Hr 3.0 H* Calcium Phosphorus Magnesium Lactate Dehydrogenase 1048 H Urine Color Urine Appearance Urine pH Ur Specific [place] Urine Protein Urine Glucose (UA) Urine Ketones Urine Blood Urine Nitrite Ur Leukocyte Esterase Urine RBC Urine WBC Ur Squamous Epith Cells Urine Bacteria Hyaline Casts U Random Total Protein Ur Random Sodium Urine Creatinine Respiratory Panel [place] Adenovirus (Rapid PCR) B.pert (TEM-PCR) B.parapertussis DNA PCR C. pneumoniae DNA (PCR) Coronavirus OC43 (PCR) Coronavirus HKU1 (PCR) Coronavirus 229E (PCR) Coronavirus NL63 (PCR) Human Metapneumovir PCR Influenza A (RT-PCR) Influenza B (RT-PCR) M. pneumoniae (PCR) Parainfluenza 1 (PCR) Parainfluenza 2 (PCR) Parainfluenza 3 (PCR) Parainfluenza 4 (PCR) RSV (PCR) Entero/Rhino (PCR) SARS-CoV-2 RNA (RT-PCR) Blood Type Antibody Screen 08/21/23 08/21/23 08/21/23 13:43 17:24 18:03 WBC RBC Hgb Hct MCV MCH MCHC RDW Plt Count MPV Immature Gran % (Auto) Neut % (Auto) Lymph % (Auto) [place] % (Auto) Eos % (Auto) Baso % (Auto) Lymph # (Auto) [place] # (Auto) Eos # (Auto) Baso # (Auto) Abs Immat Gran (auto) Absolute Neuts (auto) Absolute Nucleated RBC Nucleated RBC % (auto) Neutrophils % (Manual) Band Neutrophils % Lymphocytes % (Manual) Atypical Lymphs % (Man) Monocytes % (Manual) Abs Neuts (Manual) Lymphocytes # (Manual) Atyp Lymphs # (Manual) Monocytes # (Manual) Nucleated RBCs Dohle Bodies Platelet Estimate Large Platelets Plt Morphology Comment RBC Morphology Polychromasia Hypochromasia Spherocytes [place] Cells Acanthocytes (Spur) Schistocytes Haptoglobin VBG pH VBG pCO2 VBG pO2 VBG HCO3 VBG O2 Saturation VBG Base Excess Sodium 132 L Potassium 4.4 Chloride 89 L Carbon Dioxide 27 Anion Gap 20 BUN 58 H Creatinine 4.66 H* Estim Creat Clear Calc 13.0 Estimated GFR 9 POC Glucose 75 Random Glucose 115 Lactic Acid Lactic Acid F/U @ 2Hr Lactic Acid F/U @ 4Hr Calcium 7.6 L D Phosphorus 6.7 H Magnesium 2.1 Lactate Dehydrogenase Urine Color Yellow Urine Appearance Turbid Urine pH 7.0 Ur Specific [place] 1.010 Urine Protein 100 (2+) H Urine Glucose (UA) Negative Urine Ketones Negative Urine Blood Large (3+) H Urine Nitrite Negative Ur Leukocyte Esterase Negative Urine RBC >20 H Urine WBC 0-5 Ur Squamous Epith Cells 0-2 Urine Bacteria None Seen Hyaline Casts 0-2 U Random Total Protein 73 H Ur Random Sodium 91.0 Urine Creatinine 20.19 Respiratory Panel [place] Adenovirus (Rapid PCR) B.pert (TEM-PCR) B.parapertussis DNA PCR C. pneumoniae DNA (PCR) Coronavirus OC43 (PCR) Coronavirus HKU1 (PCR) Coronavirus 229E (PCR) Coronavirus NL63 (PCR) Human Metapneumovir PCR Influenza A (RT-PCR) Influenza B (RT-PCR) M. pneumoniae (PCR) Parainfluenza 1 (PCR) Parainfluenza 2 (PCR) Parainfluenza 3 (PCR) Parainfluenza 4 (PCR) RSV (PCR) Entero/Rhino (PCR) SARS-CoV-2 RNA (RT-PCR) Blood Type Antibody Screen 08/21/23 08/21/23 08/22/23 18:12 23:52 05:24 WBC 35.0 H* RBC 2.95 L Hgb 9.3 L Hct 26.9 L MCV 91.2 MCH 31.5 MCHC 34.6 RDW 14.3 Plt Count 55 L D MPV 13.5 H Immature Gran % (Auto) Cancelled Neut % (Auto) Cancelled Lymph % (Auto) Cancelled [place] % (Auto) Cancelled Eos % (Auto) Cancelled Baso % (Auto) Cancelled Lymph # (Auto) Cancelled [place] # (Auto) Cancelled Eos # (Auto) Cancelled Baso # (Auto) Cancelled Abs Immat Gran (auto) Cancelled Absolute Neuts (auto) Cancelled Absolute Nucleated RBC 0.250 H Nucleated RBC % (auto) 0.7 H Neutrophils % (Manual) 73 Band Neutrophils % 14 H Lymphocytes % (Manual) 5 L Atypical Lymphs % (Man) 1 Monocytes % (Manual) 7 Abs Neuts (Manual) 30.5 H Lymphocytes # (Manual) 1.8 Atyp Lymphs # (Manual) 0.4 Monocytes # (Manual) 2.5 H Nucleated RBCs 1 H Dohle Bodies PRESENT Platelet Estimate DECREASED Large Platelets PRESENT Plt Morphology Comment NOTED RBC Morphology NOTED Polychromasia 1+ (0-2) Hypochromasia 1+ (5-14) Spherocytes 1+ (0-2) [place] Cells 1+ (0-2) Acanthocytes (Spur) 1+ (0-2) Schistocytes 1+ (0-2) Haptoglobin VBG pH 7.45 H VBG pCO2 41 VBG pO2 60 VBG HCO3 29 H VBG O2 Saturation 84.0 VBG Base Excess 5.0 Sodium 131 L Potassium 4.1 Chloride 89 L Carbon Dioxide 26 Anion Gap 20 BUN 69 H Creatinine 5.26 H* Estim Creat Clear Calc 11.4 Estimated GFR 8 POC Glucose 86 95 Random Glucose 136 H Lactic Acid Lactic Acid F/U @ 2Hr Lactic Acid F/U @ 4Hr Calcium 7.1 L D Phosphorus 6.8 H Magnesium 2.3 Lactate Dehydrogenase Urine Color Urine Appearance Urine pH Ur Specific [place] Urine Protein Urine Glucose (UA) Urine Ketones Urine Blood Urine Nitrite Ur Leukocyte Esterase Urine RBC Urine WBC Ur Squamous Epith Cells Urine Bacteria Hyaline Casts U Random Total Protein Ur Random Sodium Urine Creatinine Respiratory Panel [place] Adenovirus (Rapid PCR) B.pert (TEM-PCR) B.parapertussis DNA PCR C. pneumoniae DNA (PCR) Coronavirus OC43 (PCR) Coronavirus HKU1 (PCR) Coronavirus 229E (PCR) Coronavirus NL63 (PCR) Human Metapneumovir PCR Influenza A (RT-PCR) Influenza B (RT-PCR) M. pneumoniae (PCR) Parainfluenza 1 (PCR) Parainfluenza 2 (PCR) Parainfluenza 3 (PCR) Parainfluenza 4 (PCR) RSV (PCR) Entero/Rhino (PCR) SARS-CoV-2 RNA (RT-PCR) Blood Type Antibody Screen Microbiology Microbiology Results: Microbiology 08/18/23 21:45 Blood - Venous Blood Culture - Final Streptococcus pneumoniae 08/18/23 20:17 Blood - Venous Blood Culture - Final Streptococcus pneumoniae Progress Note: A&P Assessment and plan (1) Septic shock due to streptococcal infection: Status: Acute (2) Ischemic hepatitis: Status: Acute (3) Acute hypoxic respiratory failure: Status: Acute (4) BRE (acute kidney injury): Status: Acute (5) Type 2 ID (myocardial infarction): Status: Acute Plan Patient is a 73 Y F with sarcoid, rheumatoid arthritis, on abatacept, prednisone, presenting to emergency department on 08/18 w/ encephalopathy, found to have left upper lobe pneumonia, c/b acute hypoxic respiratory failure, gram positive cocci bacteremia, c/b septic shock, admited ICU N: intubated, sedated CV: septic shock, necessitating high-dose norepinephrine gtt, vasopressin gtt, stress-dose steroids; troponinemia, likely d/t NSTEMI; grossly decreased LV function, likely d/t septic shock R: left upper lobe pneumonia, c/b acute hypoxic respiratory failure, intubated 08/21; to wean as tolerated GI: cardiac diet; CT scan suggestive of pancreatitis; ultrasound demonstrating increased gallbladder wall thickness; both may be d/t septic shock/fluid resuscitation : acute renal insufficiency, non-oligouric, worsening, initiated on hemodialysis 08/21; plan for hemodialysis 08/22 H: thrombocytopenia, worsening; to hold chemical DVT prophylaxis when platelets <50 ID: left upper lobe pneumonia, c/b strep pneumo bacteremia; to follow-up blood cultures, sputum cultures; empiric vancomycin, cefepime, metronidazole R: sarcoidosis, rheumatoid arthritis E: intermittent hypoglycemia; to monitor very closely P: no acute issues Quality Stroke Does the patient have a stroke diagnosis?: No VTE Prior VTE?: No VTE Risk Level:: Medical - moderate - high VTE Device Contraindication: N/A - Device Ordered VTE Drug Contraindication: Treatment Not Tolerated
[2023-08-22] MEDS: Dextrose 5 % and Lactated Ring 1,000 ML 50 ML IVCONT (08:40)
[2023-08-22] MEDS: propofoL 1,000 MG/100 ML VIAL 12.16 MG IVCONT (10:30)
[2023-08-22 11:39] LABS: Glucose, Whole Blood 101 mg/dL (60-115)
[2023-08-22 11:45] LABS: VBG Base Excess 3.4 mmol/L; VBG HCO3 27 mmol/L (22-26); VBG pCO2 37 mmHg; VBG pH 7.46 (7.32-7.43); VBG pO2 47 mmHg
--- NOTE | 2023-08-22 12:34 | P.PNNP_ITS ---
Subjective Subjective Date of Service: 08/22/23 Interval history: dialyzed yesterday and today 3L UF today Physical Exam 2 Vital Signs: Vital Signs: Last Vital Signs Temp 101.1 F H 08/22/23 12:00 Pulse 95 08/22/23 12:09 Resp 26 H 08/22/23 12:00 BP 118/59 L 08/22/23 12:09 Pulse Ox 96 08/22/23 12:00 O2 Del Method Mechanical Ventil ation 08/22/23 12:00 O2 Flow Rate 55 08/20/23 18:00 FiO2 40 08/22/23 12:19 BMI result Body Mass Index 35.9 Const: Other: intubated, sedated Resp: Other: on ventilator Cardio: Rate: tachycardic Rhythm: regular rhythm GI: Inspection: Yes normal to inspection and No distended Palpation (GI): n ot firm, nontender, no guarding and not rigid Neuro: Other: intubated, sedated Extrem: Other: non-pitting edema throughout Objective Data Labs 08/22/23 05:24 08/22/23 05:24 Labs: Laboratory Results - last 24 hr 08/21/23 08/21/23 08/21/23 13:21 13:26 13:31 WBC RBC Hgb Hct MCV MCH MCHC RDW Plt Count MPV Immature Gran % (Auto) Neut % (Auto) Lymph % (Auto) [place] % (Auto) Eos % (Auto) Baso % (Auto) Lymph # (Auto) [place] # (Auto) Eos # (Auto) Baso # (Auto) Abs Immat Gran (auto) Absolute Neuts (auto) Absolute Nucleated RBC Nucleated RBC % (auto) Neutrophils % (Manual) Band Neutrophils % Lymphocytes % (Manual) Atypical Lymphs % (Man) Monocytes % (Manual) Abs Neuts (Manual) Lymphocytes # (Manual) Atyp Lymphs # (Manual) Monocytes # (Manual) Nucleated RBCs Dohle Bodies Platelet Estimate Large Platelets Plt Morphology Comment RBC Morphology Polychromasia Hypochromasia Spherocytes [place] Cells Acanthocytes (Spur) Schistocytes Haptoglobin 156 VBG pH VBG pCO2 VBG pO2 VBG HCO3 VBG O2 Saturation VBG Base Excess Sodium Potassium Chloride Carbon Dioxide Anion Gap BUN Creatinine Estim Creat Clear Calc Estimated GFR POC Glucose 37 L* 23 L* Random Glucose Lactic Acid F/U @ 4Hr 3.0 H* Calcium Phosphorus Magnesium Lactate Dehydrogenase 1048 H Urine Color Urine Appearance Urine pH Ur Specific [place] Urine Protein Urine Glucose (UA) Urine Ketones Urine Blood Urine Nitrite Ur Leukocyte Esterase Urine RBC Urine WBC Ur Squamous Epith Cells Urine Bacteria Hyaline Casts U Random Total Protein Ur Random Sodium Urine Creatinine 08/21/23 08/21/23 08/21/23 13:43 17:24 18:03 WBC RBC Hgb Hct MCV MCH MCHC RDW Plt Count MPV Immature Gran % (Auto) Neut % (Auto) Lymph % (Auto) [place] % (Auto) Eos % (Auto) Baso % (Auto) Lymph # (Auto) [place] # (Auto) Eos # (Auto) Baso # (Auto) Abs Immat Gran (auto) Absolute Neuts (auto) Absolute Nucleated RBC Nucleated RBC % (auto) Neutrophils % (Manual) Band Neutrophils % Lymphocytes % (Manual) Atypical Lymphs % (Man) Monocytes % (Manual) Abs Neuts (Manual) Lymphocytes # (Manual) Atyp Lymphs # (Manual) Monocytes # (Manual) Nucleated RBCs Dohle Bodies Platelet Estimate Large Platelets Plt Morphology Comment RBC Morphology Polychromasia Hypochromasia Spherocytes [place] Cells Acanthocytes (Spur) Schistocytes Haptoglobin VBG pH VBG pCO2 VBG pO2 VBG HCO3 VBG O2 Saturation VBG Base Excess Sodium 132 L Potassium 4.4 Chloride 89 L Carbon Dioxide 27 Anion Gap 20 BUN 58 H Creatinine 4.66 H* Estim Creat Clear Calc 13.0 Estimated GFR 9 POC Glucose 75 Random Glucose 115 Lactic Acid F/U @ 4Hr Calcium 7.6 L D Phosphorus 6.7 H Magnesium 2.1 Lactate Dehydrogenase Urine Color Yellow Urine Appearance Turbid Urine pH 7.0 Ur Specific [place] 1.010 Urine Protein 100 (2+) H Urine Glucose (UA) Negative Urine Ketones Negative Urine Blood Large (3+) H Urine Nitrite Negative Ur Leukocyte Esterase Negative Urine RBC >20 H Urine WBC 0-5 Ur Squamous Epith Cells 0-2 Urine Bacteria None Seen Hyaline Casts 0-2 U Random Total Protein 73 H Ur Random Sodium 91.0 Urine Creatinine 20.19 08/21/23 08/21/23 08/22/23 18:12 23:52 05:24 WBC 35.0 H* RBC 2.95 L Hgb 9.3 L Hct 26.9 L MCV 91.2 MCH 31.5 MCHC 34.6 RDW 14.3 Plt Count 55 L D MPV 13.5 H Immature Gran % (Auto) Cancelled Neut % (Auto) Cancelled Lymph % (Auto) Cancelled [place] % (Auto) Cancelled Eos % (Auto) Cancelled Baso % (Auto) Cancelled Lymph # (Auto) Cancelled [place] # (Auto) Cancelled Eos # (Auto) Cancelled Baso # (Auto) Cancelled Abs Immat Gran (auto) Cancelled Absolute Neuts (auto) Cancelled Absolute Nucleated RBC 0.250 H Nucleated RBC % (auto) 0.7 H Neutrophils % (Manual) 73 Band Neutrophils % 14 H Lymphocytes % (Manual) 5 L Atypical Lymphs % (Man) 1 Monocytes % (Manual) 7 Abs Neuts (Manual) 30.5 H Lymphocytes # (Manual) 1.8 Atyp Lymphs # (Manual) 0.4 Monocytes # (Manual) 2.5 H Nucleated RBCs 1 H Dohle Bodies PRESENT Platelet Estimate DECREASED Large Platelets PRESENT Plt Morphology Comment NOTED RBC Morphology NOTED Polychromasia 1+ (0-2) Hypochromasia 1+ (5-14) Spherocytes 1+ (0-2) [place] Cells 1+ (0-2) Acanthocytes (Spur) 1+ (0-2) Schistocytes 1+ (0-2) Haptoglobin VBG pH 7.45 H VBG pCO2 41 VBG pO2 60 VBG HCO3 29 H VBG O2 Saturation 84.0 VBG Base Excess 5.0 Sodium 131 L Potassium 4.1 Chloride 89 L Carbon Dioxide 26 Anion Gap 20 BUN 69 H Creatinine 5.26 H* Estim Creat Clear Calc 11.4 Estimated GFR 8 POC Glucose 86 95 Random Glucose 136 H Lactic Acid F/U @ 4Hr Calcium 7.1 L D Phosphorus 6.8 H Magnesium 2.3 Lactate Dehydrogenase Urine Color Urine Appearance Urine pH Ur Specific [place] Urine Protein Urine Glucose (UA) Urine Ketones Urine Blood Urine Nitrite Ur Leukocyte Esterase Urine RBC Urine WBC Ur Squamous Epith Cells Urine Bacteria Hyaline Casts U Random Total Protein Ur Random Sodium Urine Creatinine 08/22/23 08/22/23 11:29 11:40 WBC RBC Hgb Hct MCV MCH MCHC RDW Plt Count MPV Immature Gran % (Auto) Neut % (Auto) Lymph % (Auto) [place] % (Auto) Eos % (Auto) Baso % (Auto) Lymph # (Auto) [place] # (Auto) Eos # (Auto) Baso # (Auto) Abs Immat Gran (auto) Absolute Neuts (auto) Absolute Nucleated RBC Nucleated RBC % (auto) Neutrophils % (Manual) Band Neutrophils % Lymphocytes % (Manual) Atypical Lymphs % (Man) Monocytes % (Manual) Abs Neuts (Manual) Lymphocytes # (Manual) Atyp Lymphs # (Manual) Monocytes # (Manual) Nucleated RBCs Dohle Bodies Platelet Estimate Large Platelets Plt Morphology Comment RBC Morphology Polychromasia Hypochromasia Spherocytes [place] Cells Acanthocytes (Spur) Schistocytes Haptoglobin VBG pH 7.46 H VBG pCO2 37 VBG pO2 47 VBG HCO3 27 H VBG O2 Saturation 70.0 VBG Base Excess 3.4 Sodium Potassium Chloride Carbon Dioxide Anion Gap BUN Creatinine Estim Creat Clear Calc Estimated GFR POC Glucose 101 Random Glucose Lactic Acid F/U @ 4Hr Calcium Phosphorus Magnesium Lactate Dehydrogenase Urine Color Urine Appearance Urine pH Ur Specific [place] Urine Protein Urine Glucose (UA) Urine Ketones Urine Blood Urine Nitrite Ur Leukocyte Esterase Urine RBC Urine WBC Ur Squamous Epith Cells Urine Bacteria Hyaline Casts U Random Total Protein Ur Random Sodium Urine Creatinine Microbiology Microbiology Results: Microbiology 08/18/23 21:45 Blood - Venous Blood Culture - Final Streptococcus pneumoniae 08/18/23 20:17 Blood - Venous Blood Culture - Final Streptococcus pneumoniae Procedures Date of Service Date of Service: 08/22/23 Assessment & Plan Assessment and plan (1) Septic shock due to Gram positive bacteria: Status: Acute Assessment and Plan: clinically worsening with multi organ failure ultrasound had suggested edema of the gallbladder wall without gallstones, CT scan did not reveal any inflammatory changes culture show strep pneumonia focus of infection unlikely to be gallbladder therefore abdomen had been benign, nontender critically ill prognosis appears grim discussed with mooner Plan Ms. 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 Course is complicated by BRE, and volume overload refractory to IV diuresis. Etiology of BRE: A) Pre-renal unlikely given the lack of response to Pressors and IVF support B) ATN from sepsis and inflammatory cytokine storm is very likely. ALso patient underwent couple bouts of CT contrast . C) Glomerular disease given sarcoid and RA history is possible. D) AIN is always on the differential E) infectious GN is possible as well. F) Obstruction has been ruled out. Plan: - f/u C3, C4, SPEP, K/L, Immunofix, MARNI level ordered - f/u ANCA ordered - Will defer renal biopsy until labs result - iHD 08/21 and again today 08/22. 3L UF Thank you for calling [facility] clinical documentation improvement specialist 13/04. Time Spent With Patient Time: Total time managing care of this patient today ____ minutes. Progress Note: Quality Stroke Does the patient have a stroke diagnosis?: No
[2023-08-22 14:00] LABS: Venous Blood Gas Refer to POC result
[2023-08-22 18:15] LABS: Glucose, Whole Blood 122 mg/dL (60-115)
[2023-08-22 18:21] LABS: Anion Gap 19 (12-20); Blood Urea Nitrogen 54 mg/dL (9-16); Calcium 7.5 mg/dL (8.4-10.2); Carbon Dioxide 25 mmol/L (22-29); Chloride 93 mmol/L (96-108); Creatinine Clr Calc Pharmacy 13.9; Estimated Glomerular Filt Rate 10; Glucose Random 138 mg/dL (60-115); Magnesium 2.1 mg/dL (1.6-2.6); Phosphorus 4.3 mg/dL (2.7-4.5); Potassium 3.9 mmol/L (3.3-5.1); Sodium 133 mmol/L (135-145)
[2023-08-22] MEDS: Pantoprazole Sodium 40 MG/10 ML VIAL IVPUSH (21:33)
[2023-08-22 23:17] LABS: OBS Int Ctl Valid YES; OBS1 POSITIVE (NEGATIVE)
[2023-08-22 23:56] LABS: Glucose, Whole Blood 167 mg/dL (60-115)
[2023-08-23] VITALS (51 sets, daily range): BP systolic 73–169; BP diastolic 34–74; PULSE 71–101; RESP 13–80; TEMP 34.6–38.2; O2SAT 89–100; BMI 35.5
[2023-08-23] MEDS: Vasopressin 20 UNIT/100 ML INFUS..BTL 12 UNIT IVCONT ×3 (00:09→17:36)
[2023-08-23] MEDS: Hydrocortisone Sod Succ/PF 100 MG VIAL 50 MG IVPUSH ×3 (00:35→17:00)
[2023-08-23] MEDS: propofoL 1,000 MG/100 ML VIAL 18.23 MG IVCONT ×2 (01:30→06:16)
[2023-08-23] MEDS: Dextrose 5 % and Lactated Ring 1,000 ML 50 ML IVCONT ×2 (02:53→20:15)
[2023-08-23] MEDS: metroNIDAZOLE/NS 500 MG/100 ML PIGGYBACK 100 MG IV ×3 (02:53→18:37)
[2023-08-23 05:42] LABS: VBG Base Excess 3.2 mmol/L; VBG HCO3 26 mmol/L (22-26); VBG pCO2 36 mmHg; VBG pH 7.47 (7.32-7.43); VBG pO2 49 mmHg
[2023-08-23 05:47] LABS: Venous Blood Gas Refer to POC result
[2023-08-23 06:12] LABS: Hematocrit 25.5 % (37.0-47.0); Hemoglobin 8.7 g/dl (12.0-16.0); Mean Corpuscular HGB Conc 34.1 g/dl (31.0-35.0); Mean Corpuscular Hemoglobin 30.9 pg (27.0-33.0); Mean Corpuscular Volume 90.4 fL (80.0-98.0); Mean Platelet Volume 14.1 fL (9.4-12.3); NRBC Pct Auto 0.7 /100WBC (0.0-0.2); Red Blood Count 2.82 X10*6/uL (4.20-5.50); Red Cell Distribution Width 14.4 % (11.0-16.0)
[2023-08-23 06:25] LABS: Anion Gap 19 (12-20); Blood Urea Nitrogen 66 mg/dL (9-16); Calcium 7.3 mg/dL (8.4-10.2); Carbon Dioxide 24 mmol/L (22-29); Chloride 93 mmol/L (96-108); Creatinine Clr Calc Pharmacy 12.3; Estimated Glomerular Filt Rate 9; Glucose Random 157 mg/dL (60-115); Magnesium 2.2 mg/dL (1.6-2.6); Phosphorus 4.7 mg/dL (2.7-4.5); Potassium 3.7 mmol/L (3.3-5.1); Sodium 132 mmol/L (135-145)
[2023-08-23 07:06] LABS: Platelet Count 52 X10*3/uL (160-400); WBC ABN SCTR FOR CBC 1
[2023-08-23 07:19] LABS: Atypical Lymphs Percent Manual 1 % (0-6); Band Neutrophils Percent 9 % (3-5); Lymphocytes Percent Manual 4 % (20-40); Monocytes Percent Manual 4 % (2-11); Neutrophils Percent Manual 82 % (45-73); Nucleated Red Blood Cells 1 /100WBC (0-0)
[2023-08-23 07:20] LABS: Dohle Bodies PRESENT; Toxic Vacuolation PRESENT
[2023-08-23 07:21] LABS: Burr Cells 1+ (0-2) /OIF
[2023-08-23 07:23] LABS: Atypical Lymph Absolute Manual 0.4 x10*3/uL; Lymphocytes Absolute Manual 1.5 X10*3/uL (1.2-4.9); Monocytes Absolute Manual 1.5 X10*3/uL (0.1-1.2); Neutrophils Absolute Manual 34.3 X10*3/uL (2.0-8.3); White Blood Count 37.7 X10*3/uL (4.8-10.8)
[2023-08-23] MEDS: Chlorhexidine Gluc Oral Rinse 15 ML MOUTHWASH BUCCAL ×3 (07:45→20:14)
[2023-08-23] MEDS: Pantoprazole Sodium 40 MG/10 ML VIAL IVPUSH ×2 (07:45→20:11)
[2023-08-23 08:16] LABS: Platelet Estimate DECREASED (NORMAL); RBC Morphology NOTED
[2023-08-23 08:17] LABS: Large Platelet PRESENT; Platelet Morphology Comment NOTED
--- NOTE | 2023-08-23 08:37 | P.PNCC_ITS ---
Subjective Subjective Date of Service: 08/23/23 Interval History: no significant overnight events; interval improvement of vasopressor need Critical Care Time (minutes): 60 Physical Exam 2 Vital Signs: Vital Signs: Last Vital Signs Temp 99.3 F 08/23/23 08:00 Pulse 76 08/23/23 08:00 Resp 13 08/23/23 08:00 BP 108/54 L 08/23/23 08:00 Pulse Ox 94 08/23/23 08:00 O2 Del Method Mechanical Ventil ation 08/23/23 08:00 O2 Flow Rate 55 08/20/23 18:00 FiO2 30 08/23/23 08:00 BMI result Body Mass Index 35.5 Const: Other: intubated, minimally sedated General: comfortable and no acute distress HEENT: Head: Yes normal to inspection, Yes normocephalic and Yes atraumatic Eyes: General: appearance normal, both eyes and all related structures Neck: Neck: Yes normal visual inspection, Yes full ROM and Yes supple Chest: Chest palpation & inspection: normal inspection of the chest Resp: Other: no appreciable rales, rhonchi, wheezing Effort & Inspection: normal respiratory effort Cardio: Rate: regular rate Rhythm: regular rhythm GI: Inspection: Yes normal to inspection, No Abdominal wall edema and No distended Palpation (GI): Soft to palpation, not firm, nontender, no guarding and not rigid : External Female Exam: normal external appearance Skin: General skin exam: no rashes or lesions noted Neuro: General: no focal motor deficits Extrem: General: Yes normal to inspection, Yes capillary refill normal and Yes no clubbing, cyanosis or edema Psych: Other: unable to assess Objective Data Labs 08/23/23 05:29 08/23/23 05:29 Labs: Laboratory Results - last 24 hr 08/22/23 08/22/23 08/22/23 11:29 11:40 17:56 WBC RBC Hgb Hct MCV MCH MCHC RDW Plt Count MPV Immature Gran % (Auto) Neut % (Auto) Lymph % (Auto) [place] % (Auto) Eos % (Auto) Baso % (Auto) Lymph # (Auto) [place] # (Auto) Eos # (Auto) Baso # (Auto) Abs Immat Gran (auto) Absolute Neuts (auto) Absolute Nucleated RBC Nucleated RBC % (auto) Neutrophils % (Manual) Band Neutrophils % Lymphocytes % (Manual) Atypical Lymphs % (Man) Monocytes % (Manual) Abs Neuts (Manual) Lymphocytes # (Manual) Atyp Lymphs # (Manual) Monocytes # (Manual) Nucleated RBCs Toxic Vacuolation Dohle Bodies Platelet Estimate Large Platelets Plt Morphology Comment RBC Morphology [place] Cells VBG pH 7.46 H VBG pCO2 37 VBG pO2 47 VBG HCO3 27 H VBG O2 Saturation 70.0 VBG Base Excess 3.4 Sodium 133 L Potassium 3.9 Chloride 93 L Carbon Dioxide 25 Anion Gap 19 BUN 54 H Creatinine 4.32 H* Estim Creat Clear Calc 13.9 Estimated GFR 10 POC Glucose 101 Random Glucose 138 H Calcium 7.5 L Phosphorus 4.3 Magnesium 2.1 Stool Occult Blood 08/22/23 08/22/23 08/22/23 18:08 23:04 23:52 WBC RBC Hgb Hct MCV MCH MCHC RDW Plt Count MPV Immature Gran % (Auto) Neut % (Auto) Lymph % (Auto) [place] % (Auto) Eos % (Auto) Baso % (Auto) Lymph # (Auto) [place] # (Auto) Eos # (Auto) Baso # (Auto) Abs Immat Gran (auto) Absolute Neuts (auto) Absolute Nucleated RBC Nucleated RBC % (auto) Neutrophils % (Manual) Band Neutrophils % Lymphocytes % (Manual) Atypical Lymphs % (Man) Monocytes % (Manual) Abs Neuts (Manual) Lymphocytes # (Manual) Atyp Lymphs # (Manual) Monocytes # (Manual) Nucleated RBCs Toxic Vacuolation Dohle Bodies Platelet Estimate Large Platelets Plt Morphology Comment RBC Morphology [place] Cells VBG pH VBG pCO2 VBG pO2 VBG HCO3 VBG O2 Saturation VBG Base Excess Sodium Potassium Chloride Carbon Dioxide Anion Gap BUN Creatinine Estim Creat Clear Calc Estimated GFR POC Glucose 122 H 167 H Random Glucose Calcium Phosphorus Magnesium Stool Occult Blood POSITIVE 08/23/23 08/23/23 05:29 05:35 WBC 37.7 H* RBC 2.82 L Hgb 8.7 L Hct 25.5 L MCV 90.4 MCH 30.9 MCHC 34.1 RDW 14.4 Plt Count 52 L MPV 14.1 H Immature Gran % (Auto) Cancelled Neut % (Auto) Cancelled Lymph % (Auto) Cancelled [place] % (Auto) Cancelled Eos % (Auto) Cancelled Baso % (Auto) Cancelled Lymph # (Auto) Cancelled [place] # (Auto) Cancelled Eos # (Auto) Cancelled Baso # (Auto) Cancelled Abs Immat Gran (auto) Cancelled Absolute Neuts (auto) Cancelled Absolute Nucleated RBC 0.270 H Nucleated RBC % (auto) 0.7 H Neutrophils % (Manual) 82 H Band Neutrophils % 9 H Lymphocytes % (Manual) 4 L Atypical Lymphs % (Man) 1 Monocytes % (Manual) 4 Abs Neuts (Manual) 34.3 H Lymphocytes # (Manual) 1.5 Atyp Lymphs # (Manual) 0.4 Monocytes # (Manual) 1.5 H Nucleated RBCs 1 H Toxic Vacuolation PRESENT Dohle Bodies PRESENT Platelet Estimate DECREASED Large Platelets PRESENT Plt Morphology Comment NOTED RBC Morphology NOTED [place]on Cells 1+ (0-2) VBG pH 7.47 H VBG pCO2 36 VBG pO2 49 VBG HCO3 26 VBG O2 Saturation 75.0 VBG Base Excess 3.2 Sodium 132 L Potassium 3.7 Chloride 93 L Carbon Dioxide 24 Anion Gap 19 BUN 66 H Creatinine 4.81 H* Estim Creat Clear Calc 12.3 Estimated GFR 9 POC Glucose Random Glucose 157 H Calcium 7.3 L Phosphorus 4.7 H Magnesium 2.2 Stool Occult Blood Microbiology Microbiology Results: Microbiology 08/18/23 21:45 Blood - Venous Blood Culture - Final Streptococcus pneumoniae 08/18/23 20:17 Blood - Venous Blood Culture - Final Streptococcus pneumoniae Progress Note: A&P Assessment and plan (1) Septic shock due to streptococcal infection: Status: Acute (2) Acute hypoxic respiratory failure: Status: Acute (3) BRE (acute kidney injury): Status: Acute (4) Type 2 [place] (myocardial infarction): Status: Acute Plan Patient is a 73 Y F with sarcoid, rheumatoid arthritis, on abatacept, prednisone, presenting to emergency department on 08/18 w/ encephalopathy, found to have left upper lobe pneumonia, c/b acute hypoxic respiratory failure, gram positive cocci bacteremia, c/b septic shock, admited ICU N: intubated, sedated CV: septic shock, necessitating high-dose norepinephrine gtt, vasopressin gtt, stress-dose steroids; troponinemia, likely d/t NSTEMI; grossly decreased LV function, likely d/t septic shock R: left upper lobe pneumonia, c/b acute hypoxic respiratory failure, intubated 08/21; to wean as tolerated GI: cardiac diet; CT scan suggestive of pancreatitis; ultrasound demonstrating increased gallbladder wall thickness; both may be d/t septic shock/fluid resuscitation : acute renal insufficiency, non-oligouric, worsening, initiated on hemodialysis 08/21, x2 sessions; to reassess for ongoing hemodialysis needs H: thrombocytopenia, worsening; to hold chemical DVT prophylaxis when platelets <50 ID: left upper lobe pneumonia, c/b strep pneumo bacteremia; to follow-up blood cultures, sputum cultures; empiric vancomycin, cefepime, metronidazole R: sarcoidosis, rheumatoid arthritis E: intermittent hypoglycemia; to monitor very closely P: no acute issues Quality Stroke Does the patient have a stroke diagnosis?: No VTE Prior VTE?: No VTE Risk Level:: Medical - moderate - high VTE Device Contraindication: N/A - Device Ordered VTE Drug Contraindication: Treatment Not Tolerated
[2023-08-23] MEDS: dexmedeTOMIDidine HCL/NS 400 MCG/100 ML INFUS..BTL 24.93 MCG IVCONT (11:05)
[2023-08-23 12:15] LABS: Glucose, Whole Blood 112 mg/dL (60-115)
[2023-08-23] MEDS: propofoL 1,000 MG/100 ML VIAL 12.16 MG IVCONT ×2 (16:10→22:43)
--- NOTE | 2023-08-23 16:27 | P.PNNP_ITS ---
Subjective Subjective Date of Service: 08/23/23 Interval history: vent settings better pressors maybe reduced overall responded well to volume removal on 2 sessions of HD Physical Exam 2 Vital Signs: Vital Signs: Last Vital Signs Temp 100.2 F 08/23/23 16:00 Pulse 83 08/23/23 16:05 Resp 22 H 08/23/23 16:00 BP 119/61 08/23/23 16:05 Pulse Ox 95 08/23/23 16:00 O2 Del Method Mechanical Ventil ation 08/23/23 16:00 O2 Flow Rate 55 08/20/23 18:00 FiO2 30 08/23/23 16:11 BMI result Body Mass Index 35.5 Const: Other: intubated, sedated Resp: Other: on ventilator Cardio: Rate: tachycardic Rhythm: regular rhythm GI: Inspection: Yes normal to inspection and No distended Palpation (GI): n ot firm, nontender, no guarding and not rigid Neuro: Other: intubated, sedated Extrem: Other: non-pitting edema throughout Objective Data Labs 08/23/23 05:29 08/23/23 05:29 Labs: Laboratory Results - last 24 hr 08/22/23 08/22/23 08/22/23 17:56 18:08 23:04 WBC RBC Hgb Hct MCV MCH MCHC RDW Plt Count MPV Immature Gran % (Auto) Neut % (Auto) Lymph % (Auto) [place] % (Auto) Eos % (Auto) Baso % (Auto) Lymph # (Auto) [place] # (Auto) Eos # (Auto) Baso # (Auto) Abs Immat Gran (auto) Absolute Neuts (auto) Absolute Nucleated RBC Nucleated RBC % (auto) Neutrophils % (Manual) Band Neutrophils % Lymphocytes % (Manual) Atypical Lymphs % (Man) Monocytes % (Manual) Abs Neuts (Manual) Lymphocytes # (Manual) Atyp Lymphs # (Manual) Monocytes # (Manual) Nucleated RBCs Toxic Vacuolation Dohle Bodies Platelet Estimate Large Platelets Plt Morphology Comment RBC Morphology [place] Cells VBG pH VBG pCO2 VBG pO2 VBG HCO3 VBG O2 Saturation VBG Base Excess Sodium 133 L Potassium 3.9 Chloride 93 L Carbon Dioxide 25 Anion Gap 19 BUN 54 H Creatinine 4.32 H* Estim Creat Clear Calc 13.9 Estimated GFR 10 POC Glucose 122 H Random Glucose 138 H Calcium 7.5 L Phosphorus 4.3 Magnesium 2.1 Stool Occult Blood POSITIVE 08/22/23 08/23/23 08/23/23 23:52 05:29 05:35 WBC 37.7 H* RBC 2.82 L Hgb 8.7 L Hct 25.5 L MCV 90.4 MCH 30.9 MCHC 34.1 RDW 14.4 Plt Count 52 L MPV 14.1 H Immature Gran % (Auto) Cancelled Neut % (Auto) Cancelled Lymph % (Auto) Cancelled [place] % (Auto) Cancelled Eos % (Auto) Cancelled Baso % (Auto) Cancelled Lymph # (Auto) Cancelled [place] # (Auto) Cancelled Eos # (Auto) Cancelled Baso # (Auto) Cancelled Abs Immat Gran (auto) Cancelled Absolute Neuts (auto) Cancelled Absolute Nucleated RBC 0.270 H Nucleated RBC % (auto) 0.7 H Neutrophils % (Manual) 82 H Band Neutrophils % 9 H Lymphocytes % (Manual) 4 L Atypical Lymphs % (Man) 1 Monocytes % (Manual) 4 Abs Neuts (Manual) 34.3 H Lymphocytes # (Manual) 1.5 Atyp Lymphs # (Manual) 0.4 Monocytes # (Manual) 1.5 H Nucleated RBCs 1 H Toxic Vacuolation PRESENT Dohle Bodies PRESENT Platelet Estimate DECREASED Large Platelets PRESENT Plt Morphology Comment NOTED RBC Morphology NOTED [place]on Cells 1+ (0-2) VBG pH 7.47 H VBG pCO2 36 VBG pO2 49 VBG HCO3 26 VBG O2 Saturation 75.0 VBG Base Excess 3.2 Sodium 132 L Potassium 3.7 Chloride 93 L Carbon Dioxide 24 Anion Gap 19 BUN 66 H Creatinine 4.81 H* Estim Creat Clear Calc 12.3 Estimated GFR 9 POC Glucose 167 H Random Glucose 157 H Calcium 7.3 L Phosphorus 4.7 H Magnesium 2.2 Stool Occult Blood 08/23/23 12:12 WBC RBC Hgb Hct MCV MCH MCHC RDW Plt Count MPV Immature Gran % (Auto) Neut % (Auto) Lymph % (Auto) [place] % (Auto) Eos % (Auto) Baso % (Auto) Lymph # (Auto) [place] # (Auto) Eos # (Auto) Baso # (Auto) Abs Immat Gran (auto) Absolute Neuts (auto) Absolute Nucleated RBC Nucleated RBC % (auto) Neutrophils % (Manual) Band Neutrophils % Lymphocytes % (Manual) Atypical Lymphs % (Man) Monocytes % (Manual) Abs Neuts (Manual) Lymphocytes # (Manual) Atyp Lymphs # (Manual) Monocytes # (Manual) Nucleated RBCs Toxic Vacuolation Dohle Bodies Platelet Estimate Large Platelets Plt Morphology Comment RBC Morphology [place] Cells VBG pH VBG pCO2 VBG pO2 VBG HCO3 VBG O2 Saturation VBG Base Excess Sodium Potassium Chloride Carbon Dioxide Anion Gap BUN Creatinine Estim Creat Clear Calc Estimated GFR POC Glucose 112 Random Glucose Calcium Phosphorus Magnesium Stool Occult Blood Microbiology Microbiology Results: Microbiology 08/18/23 21:45 Blood - Venous Blood Culture - Final Streptococcus pneumoniae 08/18/23 20:17 Blood - Venous Blood Culture - Final Streptococcus pneumoniae Procedures Date of Service Date of Service: 08/23/23 Assessment & Plan Assessment and plan (1) Septic shock due to Gram positive bacteria: Status: Acute Assessment and Plan: clinically worsening with multi organ failure ultrasound had suggested edema of the gallbladder wall without gallstones, CT scan did not reveal any inflammatory changes culture show strep pneumonia focus of infection unlikely to be gallbladder therefore abdomen had been benign, nontender critically ill prognosis appears grim discussed with hand touch up painter Plan Ms. 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 Course is complicated by BRE, and volume overload refractory to IV diuresis. Etiology of BRE: A) Pre-renal unlikely given the lack of response to Pressors and IVF support B) ATN from sepsis and inflammatory cytokine storm is very likely. ALso patient underwent couple bouts of CT contrast . C) Glomerular disease given sarcoid and RA history is possible. D) AIN is always on the differential E) infectious GN is possible as well. F) Obstruction has been ruled out. Plan: - f/u C3, C4, SPEP, K/L, Immunofix, MARNI level ordered - f/u ANCA ordered - Will defer renal biopsy until labs result - iHD 08/21 and 08/22. will Hold off on SECURITY ASSOCIATE today and reevaluate tomorrow. Thank you for calling [employer] freight traffic consultant 13/04. Time Spent With Patient Time: Total time managing care of this patient today ____ minutes. Progress Note: Quality Stroke Does the patient have a stroke diagnosis?: No
[2023-08-23 18:17] LABS: Anion Gap 19 (12-20); Blood Urea Nitrogen 80 mg/dL (9-16); Calcium 7.1 mg/dL (8.4-10.2); Carbon Dioxide 24 mmol/L (22-29); Chloride 94 mmol/L (96-108); Creatinine Clr Calc Pharmacy 11.5; Estimated Glomerular Filt Rate 8; Glucose Random 138 mg/dL (60-115); Magnesium 2.5 mg/dL (1.6-2.6); Phosphorus 4.6 mg/dL (2.7-4.5); Potassium 3.6 mmol/L (3.3-5.1); Sodium 133 mmol/L (135-145)
[2023-08-23 18:17] LABS: Glucose, Whole Blood 130 mg/dL (60-115)
[2023-08-24] VITALS (36 sets, daily range): BP systolic 103–158; BP diastolic 53–80; PULSE 70–103; RESP 15–34; TEMP 34.4–37.1; O2SAT 90–95; BMI 36.6
[2023-08-24] MEDS: Vasopressin 20 UNIT/100 ML INFUS..BTL 12 UNIT IVCONT ×2 (01:12→08:35)
[2023-08-24] MEDS: Hydrocortisone Sod Succ/PF 100 MG VIAL 50 MG IVPUSH (01:14)
[2023-08-24 02:00] LABS: Glucose, Whole Blood 144 mg/dL (60-115)
[2023-08-24] MEDS: propofoL 1,000 MG/100 ML VIAL 12.16 MG IVCONT (04:31)
[2023-08-24 04:51] LABS: VBG Base Excess 0.6 mmol/L; VBG HCO3 24 mmol/L (22-26); VBG pCO2 35 mmHg; VBG pH 7.44 (7.32-7.43); VBG pO2 46 mmHg; Venous Blood Gas Refer to POC result
[2023-08-24 05:14] LABS: Basophils Absolute Auto 0.3 X10*3/uL (0.0-0.2); Hematocrit 24.4 % (37.0-47.0); Hemoglobin 8.4 g/dl (12.0-16.0); Imm Gran Abs Auto 1.76 X10*3/uL (0.00-0.03); Lymphocytes Absolute Auto 0.7 X10*3/uL (1.2-4.9); MANUAL DIFF FLAG SCAN; Mean Corpuscular HGB Conc 34.4 g/dl (31.0-35.0); Mean Corpuscular Hemoglobin 30.9 pg (27.0-33.0); Mean Corpuscular Volume 89.7 fL (80.0-98.0); Mean Platelet Volume 14.8 fL (9.4-12.3); Monocytes Absolute Auto 2.8 X10*3/uL (0.1-1.2); NRBC Pct Auto 0.6 /100WBC (0.0-0.2); Neutrophils Absolute Auto 29.7 x10*3/uL (2.0-8.3); Red Blood Count 2.72 X10*6/uL (4.20-5.50); Red Cell Distribution Width 14.7 % (11.0-16.0); SCAN SMEAR FLAG 1
[2023-08-24 05:19] LABS: Platelet Count 66 X10*3/uL (160-400)
[2023-08-24 05:20] LABS: White Blood Count 35.4 X10*3/uL (4.8-10.8)
[2023-08-24 05:27] LABS: Anion Gap 21 (12-20); Blood Urea Nitrogen 93 mg/dL (9-16); Calcium 7.1 mg/dL (8.4-10.2); Carbon Dioxide 22 mmol/L (22-29); Chloride 94 mmol/L (96-108); Creatinine Clr Calc Pharmacy 10.7; Estimated Glomerular Filt Rate 7; Glucose Random 136 mg/dL (60-115); Magnesium 2.4 mg/dL (1.6-2.6); Phosphorus 5.4 mg/dL (2.7-4.5); Potassium 3.6 mmol/L (3.3-5.1); Sodium 133 mmol/L (135-145)
[2023-08-24 05:30] LABS: SLIDE REVIEW VERIFIED
[2023-08-24 05:57] LABS: CDiff Gene PCR NEGATIVE (Negative)
--- NOTE | 2023-08-24 06:30 | PC.NURSE ---
ASSUMED CARE OF PT AT 1900. PT MAINTAINED ON PRESSURE SUPPORT VENT SETTINGS BUT PUT ON RESTING SETTINGS DURING THE NIGHT PER PROVIDER. BACK ON PRESSURE SUPPORT AT 0430 AFTER AM LABS DRAWN. NO RESP DIFFICULTIES. O2 SAT MID 90'S. RESP RATE 17-24. BP STABLE. ABLE TO WEAN OFF LEVOPHED. VASOPRESSING CONTINUES ORDERED. BP 118/58. U/O IS 0-25 ML/HR. PROVIDER AWARE OF LOW U/O. PT MAY NEED DIALYSIS THIS AM. MONITOR SHOW NSR, RATE 70'S, FREQ PVC NOTED.
[2023-08-24] MEDS: Chlorhexidine Gluc Oral Rinse 15 ML MOUTHWASH BUCCAL ×3 (08:36→20:13)
[2023-08-24] MEDS: Pantoprazole Sodium 40 MG/10 ML VIAL IVPUSH ×2 (08:36→20:14)
[2023-08-24] MEDS: propofoL 1,000 MG/100 ML VIAL 18.23 MG IVCONT (09:08)
[2023-08-24] MEDS: cefTRIAXone sodium 2 GM in 0.9 % Sodium Chloride 50 ML IV (09:42)
--- NOTE | 2023-08-24 10:28 | MHC.CLN ---
F/U PATIENT INTUBATED AND SEDATED 08/21 DISCUSSED WITH MD AT ROUNDS PT POSSIBLE TRICKLE FEEDING TODAY NEPRO AT 10ML/HR IF TUBE FEEDING NEEDED FOR 100% NUTRITION SUPPORT; RECOMMEND NEPRO AT MAX GOAL RATE 25 ML PER HOUR WITH 120 ML FREE WATER FLUSHES Q 6 HOURS TO PROVIDE 1080 KCALS (1561 KCALS WITH SEDATION, 26.4 KCALS/KG IBW); 49 G PROTEIN (.82 G/KG IBW); 916 ML FREE WATER FROM FORMULA AND FLUSH (15.5 ML/KG IBW) MONITOR TOLERANCE, RESIDUALS AND LYTES
--- NOTE | 2023-08-24 11:04 | PM.CCPN ---
Subjective Subjective Date of Service: 08/24/23 Interval History: 73-year-old lady with underlying history of sarcoidosis, rheumatoid arthritis, MGUS, emphysema admitted on 08/18/2023 with septic shock secondary to streptococcal pneumonia requiring pressor support and intubation, further complicated by acute renal failure now requiring hemodialysis support. No events overnight. Pressor requirements and FiO2 requirements are improving. Critical Care Time (minutes): 60 Physical Exam Vital Signs: Vital Signs: Last Vital Signs Temp 98.8 F 08/24/23 11:00 Pulse 94 08/24/23 11:00 Resp 34 H 08/24/23 11:00 BP 155/80 H 08/24/23 11:00 Pulse Ox 90 L 08/24/23 11:00 O2 Del Method Mechanical Ventil ation 08/24/23 11:00 O2 Flow Rate 55 08/20/23 18:00 FiO2 30 08/24/23 11:00 BMI result Body Mass Index 36.6 Const: General: no acute distress and other (Sedated on the vent, poor arousal with sedation vacation) Eyes: Sclerae: sclerae normal EOM: EOMs intact bilaterally Neck: Neck: Yes no lymphadenopathy, Yes trachea midline and Yes supple Resp: Auscultation: rales (Bilateral) Cardio: Rate: regular rate Rhythm: regular rhythm Heart sounds: no gallops, no murmurs and no rubs GI: Palpation (GI): Soft to palpation and Other GI palpation findings present ( Nontender) Auscultation: normal bowel sounds Extrem: General: No clubbing, No cyanosis and Yes edema (Trace bilateral) Objective Data Labs 08/24/23 04:50 08/24/23 04:50 Labs: Laboratory Results - last 24 hr 08/23/23 08/23/23 08/23/23 04:45 12:12 17:56 WBC RBC Hgb Hct MCV MCH MCHC RDW Plt Count MPV Immature Gran % (Auto) Neut % (Auto) Lymph % (Auto) [place] % (Auto) Eos % (Auto) Baso % (Auto) Lymph # (Auto) [place] # (Auto) Eos # (Auto) Baso # (Auto) Abs Immat Gran (auto) Absolute Neuts (auto) Absolute Nucleated RBC Nucleated RBC % (auto) Smear Tech's Comments VBG pH VBG pCO2 VBG pO2 VBG HCO3 VBG O2 Saturation VBG Base Excess Sodium 133 L Potassium 3.6 Chloride 94 L Carbon Dioxide 24 Anion Gap 19 BUN 80 H Creatinine 5.17 H* Estim Creat Clear Calc 11.5 Estimated GFR 8 POC Glucose 112 Random Glucose 138 H Calcium 7.1 L Phosphorus 4.6 H Magnesium 2.5 C. difficile Tox B Gene NEGATIVE 08/23/23 08/24/23 08/24/23 18:14 01:06 04:45 WBC RBC Hgb Hct MCV MCH MCHC RDW Plt Count MPV Immature Gran % (Auto) Neut % (Auto) Lymph % (Auto) [place] % (Auto) Eos % (Auto) Baso % (Auto) Lymph # (Auto) [place] # (Auto) Eos # (Auto) Baso # (Auto) Abs Immat Gran (auto) Absolute Neuts (auto) Absolute Nucleated RBC Nucleated RBC % (auto) Smear Tech's Comments VBG pH 7.44 H VBG pCO2 35 VBG pO2 46 VBG HCO3 24 VBG O2 Saturation 64.0 VBG Base Excess 0.6 Sodium Potassium Chloride Carbon Dioxide Anion Gap BUN Creatinine Estim Creat Clear Calc Estimated GFR POC Glucose 130 H 144 H Random Glucose Calcium Phosphorus Magnesium C. difficile Tox B Gene 08/24/23 04:50 WBC 35.4 H* RBC 2.72 L Hgb 8.4 L Hct 24.4 L MCV 89.7 MCH 30.9 MCHC 34.4 RDW 14.7 Plt Count 66 L D MPV 14.8 H Immature Gran % (Auto) 5.0 H Neut % (Auto) 84.0 H Lymph % (Auto) 2.0 L [place] % (Auto) 8.0 Eos % (Auto) 0.0 Baso % (Auto) 1.0 Lymph # (Auto) 0.7 L [place] # (Auto) 2.8 H Eos # (Auto) 0.0 Baso # (Auto) 0.3 H Abs Immat Gran (auto) 1.76 H Absolute Neuts (auto) 29.7 H Absolute Nucleated RBC 0.220 H Nucleated RBC % (auto) 0.6 H Smear Tech's Comments VERIFIED VBG pH VBG pCO2 VBG pO2 VBG HCO3 VBG O2 Saturation VBG Base Excess Sodium 133 L Potassium 3.6 Chloride 94 L Carbon Dioxide 22 Anion Gap 21 H BUN 93 H Creatinine 5.65 H* Estim Creat Clear Calc 10.7 Estimated GFR 7 POC Glucose Random Glucose 136 H Calcium 7.1 L Phosphorus 5.4 H Magnesium 2.4 C. difficile Tox B Gene Microbiology Microbiology Results: Microbiology 08/18/23 21:45 Blood - Venous Blood Culture - Final Streptococcus pneumoniae 08/18/23 20:17 Blood - Venous Blood Culture - Final Streptococcus pneumoniae Progress Note: A&P Assessment and plan (1) Streptococcal pneumonia: Status: Acute (2) Septic shock due to streptococcal infection: Status: Acute (3) Acute hypoxic respiratory failure: Status: Acute (4) BRE (acute kidney injury): Status: Acute (5) Rheumatoid arthritis involving multiple joints: Status: Acute (6) Sarcoidosis: Status: Acute Plan Assessment: 73-year-old lady admitted with septic shock secondary to streptococcal pneumonia further complicated by acute renal failure requiring hemodialysis support and septic encephalopathy Plan: Neuro: Poor arousal with sedation vacation likely secondary to septic encephalopathy. Continue to monitor clinically. Cardiac: Septic shock, resolved, titrated off pressors. Pulmonary: Acute hypoxic respiratory failure requiring ventilatory support secondary to streptococcal pneumonia on the background of sarcoidosis Renal: Acute renal failure on the background of septic shock, likely ATN. Nephrology service care appreciated. Continue hemodialysis support. Endo: No acute issues. GI: No acute issues. ID: Streptococcal pneumonia, continue ceftriaxone. Heme/Onc: No acute issues. Psych: No acute issues. Miscellaneous: No acute issues. Prophylaxis: Pneumatic compression, ppi Diet: Tube feeds Critical care time spent: 60 minutes Quality Stroke Does the patient have a stroke diagnosis?: No VTE Prior VTE?: No VTE Risk Level:: Medical - moderate - high VTE Device Contraindication: N/A - Device Ordered VTE Drug Contraindication: Treatment Not Tolerated
[2023-08-24 11:11] LABS: Glucose, Whole Blood 124 mg/dL (60-115)
--- NOTE | 2023-08-24 15:25 | P.PNNP_ITS ---
Subjective Subjective Date of Service: 08/24/23 Interval history: Seen and examined, events noted Cont on vent/pressors UOP approx 150 past 123 hrs Last HD 08/22 Physical Exam 2 Vital Signs: Vital Signs: Last Vital Signs Temp 98.4 F 08/24/23 15:00 Pulse 90 08/24/23 15:00 Resp 29 H 08/24/23 15:00 BP 120/60 08/24/23 15:00 Pulse Ox 93 08/24/23 15:00 O2 Del Method Mechanical Ventil ation 08/24/23 15:00 O2 Flow Rate 55 08/20/23 18:00 FiO2 30 08/24/23 15:17 BMI result Body Mass Index 36.6 Const: Other: intubated, sedated Resp: Other: on ventilator Cardio: Rate: tachycardic Rhythm: regular rhythm GI: Inspection: Yes normal to inspection and No distended Palpation (GI): n ot firm, nontender, no guarding and not rigid Neuro: Other: intubated, sedated Extrem: Other: non-pitting edema throughout Objective Data Labs 08/24/23 04:50 08/24/23 04:50 Labs: Laboratory Results - last 24 hr 08/23/23 08/23/23 08/23/23 04:45 17:56 18:14 WBC RBC Hgb Hct MCV MCH MCHC RDW Plt Count MPV Immature Gran % (Auto) Neut % (Auto) Lymph % (Auto) [place] % (Auto) Eos % (Auto) Baso % (Auto) Lymph # (Auto) [place] # (Auto) Eos # (Auto) Baso # (Auto) Abs Immat Gran (auto) Absolute Neuts (auto) Absolute Nucleated RBC Nucleated RBC % (auto) Smear Tech's Comments VBG pH VBG pCO2 VBG pO2 VBG HCO3 VBG O2 Saturation VBG Base Excess Sodium 133 L Potassium 3.6 Chloride 94 L Carbon Dioxide 24 Anion Gap 19 BUN 80 H Creatinine 5.17 H* Estim Creat Clear Calc 11.5 Estimated GFR 8 POC Glucose 130 H Random Glucose 138 H Calcium 7.1 L Phosphorus 4.6 H Magnesium 2.5 C. difficile Tox B Gene NEGATIVE 08/24/23 08/24/23 08/24/23 01:06 04:45 04:50 WBC 35.4 H* RBC 2.72 L Hgb 8.4 L Hct 24.4 L MCV 89.7 MCH 30.9 MCHC 34.4 RDW 14.7 Plt Count 66 L D MPV 14.8 H Immature Gran % (Auto) 5.0 H Neut % (Auto) 84.0 H Lymph % (Auto) 2.0 L [place] % (Auto) 8.0 Eos % (Auto) 0.0 Baso % (Auto) 1.0 Lymph # (Auto) 0.7 L [place] # (Auto) 2.8 H Eos # (Auto) 0.0 Baso # (Auto) 0.3 H Abs Immat Gran (auto) 1.76 H Absolute Neuts (auto) 29.7 H Absolute Nucleated RBC 0.220 H Nucleated RBC % (auto) 0.6 H Smear Tech's Comments VERIFIED VBG pH 7.44 H VBG pCO2 35 VBG pO2 46 VBG HCO3 24 VBG O2 Saturation 64.0 VBG Base Excess 0.6 Sodium 133 L Potassium 3.6 Chloride 94 L Carbon Dioxide 22 Anion Gap 21 H BUN 93 H Creatinine 5.65 H* Estim Creat Clear Calc 10.7 Estimated GFR 7 POC Glucose 144 H Random Glucose 136 H Calcium 7.1 L Phosphorus 5.4 H Magnesium 2.4 C. difficile Tox B Gene 08/24/23 11:08 WBC RBC Hgb Hct MCV MCH MCHC RDW Plt Count MPV Immature Gran % (Auto) Neut % (Auto) Lymph % (Auto) [place] % (Auto) Eos % (Auto) Baso % (Auto) Lymph # (Auto) [place] # (Auto) Eos # (Auto) Baso # (Auto) Abs Immat Gran (auto) Absolute Neuts (auto) Absolute Nucleated RBC Nucleated RBC % (auto) Smear Tech's Comments VBG pH VBG pCO2 VBG pO2 VBG HCO3 VBG O2 Saturation VBG Base Excess Sodium Potassium Chloride Carbon Dioxide Anion Gap BUN Creatinine Estim Creat Clear Calc Estimated GFR POC Glucose 124 H Random Glucose Calcium Phosphorus Magnesium C. difficile Tox B Gene Microbiology Microbiology Results: Microbiology 08/18/23 21:45 Blood - Venous Blood Culture - Final Streptococcus pneumoniae 08/18/23 20:17 Blood - Venous Blood Culture - Final Streptococcus pneumoniae Procedures Date of Service Date of Service: 08/24/23 Assessment & Plan Assessment and plan (1) Septic shock due to Gram positive bacteria: Status: Inactive Plan Ms. Tasha Emilia is a 73-year-old female with Sarcoid and RA (on immunosuppression) who presents with dense septic shock and bacteremia from PNA. Course is complicated by BRE, and volume overload refractory to IV diuresis now requireing HD support Etiology of BRE: A) Pre-renal unlikely given the lack of response to Pressors and IVF support B) ATN from sepsis and inflammatory cytokine storm is very likely. ALso patient underwent couple bouts of CT contrast . C) Glomerular disease given sarcoid and RA history is possible. D) AIN is always on the differential E) infectious GN is possible as well. F) Obstruction has been ruled out. REC: hold HD today and reasses in am as UOP trending up and metabolic no abs indication for CELLULAR PHONE REPAIRER today but likely need HD tomorrow D/W Dr Hawkins Time Spent With Patient Time: Total time managing care of this patient today ____ minutes. Progress Note: Quality Stroke Does the patient have a stroke diagnosis?: No
[2023-08-24 18:08] LABS: Glucose, Whole Blood 84 mg/dL (60-115)
[2023-08-24 18:18] LABS: Complement C3 16 mg/dL (83-193)
--- NOTE | 2023-08-24 21:28 | PM.EVENT ---
Documented by User: Arielle Miguel NP 08/24/23 21:31 Event Note Date of Service: 08/24/23 Event Note: Patient's son called to report that he tested positive for Covid today. Symptoms began today. He stated that he spent a significant amount of time in his mother's room over the weekend. Will test patient and treat as indicated. Pt is already on precautions. Time Spent With Patient Time: Total time managing care of this patient today ____ minutes. Documented by User: Wilberto Hawkins MD 08/24/23 22:33 Event Note Date of Service: 08/24/23
[2023-08-24 22:48] LABS: PES - Abn Protein Band 1 0.7 g/dL (NONE DETECTED); Prot Elec - Albumin 2.8 g/dL (3.8-4.8); Prot Elec - Alpha1 0.4 g/dL (0.2-0.3); Prot Elec - Alpha2 0.6 g/dL (0.5-0.9); Prot Elec - Beta 1 0.2 g/dL (0.4-0.6); Prot Elec - Beta 2 0.1 g/dL (0.2-0.5); Prot Elec - Gamma 0.9 g/dL (0.8-1.7)
[2023-08-24 22:48] LABS: PES - Abn Protein Band 1 0.8 g/dL (NONE DETECTED); Prot Elec - Albumin 3.4 g/dL (3.8-4.8); Prot Elec - Alpha1 0.7 g/dL (0.2-0.3); Prot Elec - Alpha2 0.8 g/dL (0.5-0.9); Prot Elec - Beta 1 0.2 g/dL (0.4-0.6); Prot Elec - Beta 2 0.2 g/dL (0.2-0.5); Prot Elec - Gamma 1.1 g/dL (0.8-1.7); Prot Elec - Total Protein 6.3 g/dL (6.1-8.1)
[2023-08-24 23:48] LABS: Influenza A PCR NEGATIVE (Negative); Influenza B PCR NEGATIVE (Negative); Resp Syncy Virus RNA Qual PCR NEGATIVE (Negative); SARS COV2 PCR INHOUSE NEGATIVE (Negative)
[2023-08-25] VITALS (36 sets, daily range): BP systolic 77–161; BP diastolic 35–72; PULSE 72–96; RESP 18–30; TEMP 34.4–37.1; O2SAT 90–97; BMI 35.9
[2023-08-25 00:34] LABS: Glucose, Whole Blood 78 mg/dL (60-115)
[2023-08-25 05:01] LABS: VBG Base Excess -0.3 mmol/L; VBG HCO3 23 mmol/L (22-26); VBG pCO2 36 mmHg; VBG pH 7.41 (7.32-7.43); VBG pO2 58 mmHg
[2023-08-25 05:24] LABS: Hematocrit 27.8 % (37.0-47.0); Hemoglobin 9.4 g/dl (12.0-16.0); Mean Corpuscular HGB Conc 33.8 g/dl (31.0-35.0); Mean Corpuscular Hemoglobin 29.7 pg (27.0-33.0); Mean Corpuscular Volume 87.7 fL (80.0-98.0); Mean Platelet Volume 13.2 fL (9.4-12.3); NRBC Pct Auto 1.1 /100WBC (0.0-0.2); PLT CLUMP 1; Red Blood Count 3.17 X10*6/uL (4.20-5.50); Red Cell Distribution Width 14.4 % (11.0-16.0); WBC ABN SCTR FOR CBC 1
[2023-08-25 05:25] LABS: White Blood Count 33.2 X10*3/uL (4.8-10.8)
[2023-08-25 05:26] LABS: Albumin Level 2.7 g/dL (3.5-5.0); Anion Gap 21 (12-20); Blood Urea Nitrogen 125 mg/dL (9-16); Calcium 7.1 mg/dL (8.4-10.2); Carbon Dioxide 22 mmol/L (22-29); Chloride 94 mmol/L (96-108); Creatinine Clr Calc Pharmacy 9.3; Estimated Glomerular Filt Rate 6; Glucose Random 69 mg/dL (60-115); Magnesium 2.7 mg/dL (1.6-2.6); Phosphorus 6.2 mg/dL (2.7-4.5); Potassium 3.4 mmol/L (3.3-5.1); Sodium 134 mmol/L (135-145)
[2023-08-25 05:39] LABS: Venous Blood Gas Refer to POC result
[2023-08-25 05:46] LABS: Band Neutrophils Percent 10 % (3-5); Eosinophils Absolute Manual 0.3 X10*3/uL (0.0-0.4); Eosinophils Percent Manual 1 % (0-4); Lymphocytes Percent Manual 3 % (20-40); Monocytes Percent Manual 6 % (2-11); Neutrophils Absolute Manual 29.9 X10*3/uL (2.0-8.3); Neutrophils Percent Manual 80 % (45-73); RBC Morphology NOTED
[2023-08-25 05:47] LABS: Macrocytosis 1+ (5-14) /OIF
[2023-08-25 05:48] LABS: Basophilic Stippling 1+ (0-2) /OIF; Burr Cells 1+ (0-2) /OIF; Dohle Bodies PRESENT; Howell Jolly Bodies PRESENT; Large Platelet PRESENT; Pappenheimer Bodies PRESENT; Platelet Count 141 X10*3/uL (160-400); Platelet Estimate SLIGHTLY DECREASED (NORMAL); Platelet Morphology Comment NOTED; Polychromasia 1+ (0-2) /OIF; Smudge Cells PRESENT; Tear Drop Cells 1+ (0-2) /OIF; Toxic Granulation PRESENT; Toxic Vacuolation PRESENT
[2023-08-25] MEDS: Potassium Chloride Packet 20 MEQ PACKET 40 MEQ PO (06:07)
[2023-08-25] MEDS: Albumin Human 25 % 100 ML IV ×4 (06:15→23:51)
[2023-08-25] MEDS: cefTRIAXone sodium 2 GM in 0.9 % Sodium Chloride 50 ML IV (08:05)
[2023-08-25] MEDS: propofoL 1,000 MG/100 ML VIAL 18.23 MG IVCONT ×4 (08:05→23:46)
[2023-08-25] MEDS: Chlorhexidine Gluc Oral Rinse 15 ML MOUTHWASH BUCCAL ×3 (08:06→20:27)
[2023-08-25] MEDS: Pantoprazole Sodium 40 MG/10 ML VIAL IVPUSH ×2 (08:06→20:27)
[2023-08-25] MEDS: Norepinephrine Bitartrate/D5W 8 MG/250 ML PLAST..BAG 8.48 MG IV (08:36)
[2023-08-25 09:33] LABS: IgA 18 mg/dL (70-320); IgG 1145 mg/dL (600-1540); IgM 15 mg/dL (50-300)
--- NOTE | 2023-08-25 09:57 | P.PNCC_ITS ---
Subjective Subjective Date of Service: 08/25/23 Interval History: 73-year-old lady with underlying history of sarcoidosis, rheumatoid arthritis, MGUS, emphysema admitted on 08/18/2023 with septic shock secondary to streptococcal pneumonia requiring pressor support and intubation, further complicated by acute renal failure now requiring hemodialysis support. No events overnight. Uremia is worsening. Critical Care Time (minutes): 60 Physical Exam 2 Vital Signs: Vital Signs: Last Vital Signs Temp 98.1 F 08/25/23 09:00 Pulse 91 08/25/23 09:00 Resp 20 08/25/23 09:00 BP 133/57 L 08/25/23 09:00 Pulse Ox 91 L 08/25/23 09:00 O2 Del Method Mechanical Ventil ation 08/25/23 09:00 O2 Flow Rate 55 08/20/23 18:00 FiO2 30 08/25/23 09:00 BMI result Body Mass Index 35.9 Const: General: no acute distress and other (Sedated on the vent) Eyes: Sclerae: sclerae normal Neck: Neck: Yes no lymphadenopathy, Yes trachea midline and Yes supple Resp: Auscultation: crackles (Mild bilateral) Cardio: Rate: regular rate Rhythm: regular rhythm Heart sounds: no gallops, no murmurs and no rubs GI: Palpation (GI): Soft to palpation and Other GI palpation findings present ( Nontender) Auscultation: normal bowel sounds Extrem: General: Yes no pedal edema, No clubbing and No cyanosis Objective Data Labs 08/25/23 04:53 08/25/23 04:53 Labs: Laboratory Results - last 24 hr 08/21/23 08/22/23 08/24/23 13:56 07:05 11:08 WBC RBC Hgb Hct MCV MCH MCHC RDW Plt Count MPV Immature Gran % (Auto) Neut % (Auto) Lymph % (Auto) Whitman % (Auto) Eos % (Auto) Baso % (Auto) Lymph # (Auto) [place]man # (Auto) Eos # (Auto) Baso # (Auto) Abs Immat Gran (auto) Absolute Neuts (auto) Absolute Nucleated RBC Nucleated RBC % (auto) Neutrophils % (Manual) Band Neutrophils % Lymphocytes % (Manual) Monocytes % (Manual) Eosinophils % (Manual) Abs Neuts (Manual) Lymphocytes # (Manual) Monocytes # (Manual) Eosinophils # (Manual) Smudge Cells Toxic Granulation Toxic Vacuolation Dohle Bodies Platelet Estimate Large Platelets Plt Morphology Comment RBC Morphology Polychromasia Basophilic Stippling Macrocytosis Pappenheimer Bodies Tear Drop Cells [place] Bodies [place] Cells Hold Purple Top VBG pH VBG pCO2 VBG pO2 VBG HCO3 VBG O2 Saturation VBG Base Excess Sodium Potassium Chloride Carbon Dioxide Anion Gap BUN Creatinine Estim Creat Clear Calc Estimated GFR POC Glucose 124 H Random Glucose Calcium Phosphorus Magnesium Total Protein (PEP) 5.0 L 6.3 Albumin Albumin (PEP) 2.8 L 3.4 L Wdohw-3-Wrcztcqay 0.4 H 0.7 H Vguxm-7-Twaajnauz 0.6 0.8 Igzi-1-Zfrszjqa 0.2 L 0.2 L Cbve-3-Evrxplqk 0.1 L 0.2 Gamma Globulins 0.9 1.1 Abnorm Protein Band 1 0.7 H 0.8 H PEP Interpretation SEE NOTE SEE NOTE IgG Total 1145 IgA Total 18 L IgM 15 L DARIA Interpretation SEE NOTE Complement C3 16 L Complement C4 <3 L COVID-19 ([facility]) COVID-19 Clin Com Influenza Type A (PCR) Influenza Type B (PCR) RSV RNA Qual (PCR) SARS-CoV-2 RNA (RT-PCR) 08/24/23 08/24/23 08/25/23 18:01 22:46 00:30 WBC RBC Hgb Hct MCV MCH MCHC RDW Plt Count MPV Immature Gran % (Auto) Neut % (Auto) Lymph % (Auto) [place]man % (Auto) Eos % (Auto) Baso % (Auto) Lymph # (Auto) [place] # (Auto) Eos # (Auto) Baso # (Auto) Abs Immat Gran (auto) Absolute Neuts (auto) Absolute Nucleated RBC Nucleated RBC % (auto) Neutrophils % (Manual) Band Neutrophils % Lymphocytes % (Manual) Monocytes % (Manual) Eosinophils % (Manual) Abs Neuts (Manual) Lymphocytes # (Manual) Monocytes # (Manual) Eosinophils # (Manual) Smudge Cells Toxic Granulation Toxic Vacuolation Dohle Bodies Platelet Estimate Large Platelets Plt Morphology Comment RBC Morphology Polychromasia Basophilic Stippling Macrocytosis Pappenheimer Bodies Tear Drop Cells [place] Bodies [place] Cells Hold Purple Top VBG pH VBG pCO2 VBG pO2 VBG HCO3 VBG O2 Saturation VBG Base Excess Sodium Potassium Chloride Carbon Dioxide Anion Gap BUN Creatinine Estim Creat Clear Calc Estimated GFR POC Glucose 84 78 Random Glucose Calcium Phosphorus Magnesium Total Protein (PEP) Albumin Albumin (PEP) Ykdhp-1-Jbzyskyji Rjlrd-0-Psqtymjzz Tpop-4-Pscoxxuo Asos-3-Idoozqfx Gamma Globulins Abnorm Protein Band 1 PEP Interpretation IgG Total IgA Total IgM DARIA Interpretation Complement C3 Complement C4 COVID-19 (RAJ) Cancelled COVID-19 Clin Com Cancelled Influenza Type A (PCR) NEGATIVE Influenza Type B (PCR) NEGATIVE RSV RNA Qual (PCR) NEGATIVE SARS-CoV-2 RNA (RT-PCR) NEGATIVE 08/25/23 08/25/23 08/25/23 04:53 04:53 04:53 WBC 33.2 H* Cancelled RBC 3.17 L Cancelled Hgb 9.4 L Hct MCV MCH MCHC RDW Plt Count MPV Immature Gran % (Auto) Neut % (Auto) Lymph % (Auto) Whitman % (Auto) Eos % (Auto) Baso % (Auto) Lymph # (Auto) [place] # (Auto) Eos # (Auto) Baso # (Auto) Abs Immat Gran (auto) Absolute Neuts (auto) Absolute Nucleated RBC Nucleated RBC % (auto) Neutrophils % (Manual) Band Neutrophils % Lymphocytes % (Manual) Monocytes % (Manual) Eosinophils % (Manual) Abs Neuts (Manual) Lymphocytes # (Manual) Monocytes # (Manual) Eosinophils # (Manual) Smudge Cells Toxic Granulation Toxic Vacuolation Dohle Bodies Platelet Estimate Large Platelets Plt Morphology Comment RBC Morphology Polychromasia Basophilic Stippling Macrocytosis Pappenheimer Bodies Tear Drop Cells [place] Bodies [place] Cells Hold Purple Top VBG pH VBG pCO2 VBG pO2 VBG HCO3 VBG O2 Saturation VBG Base Excess Sodium Potassium Chloride Carbon Dioxide Anion Gap BUN Creatinine Estim Creat Clear Calc Estimated GFR POC Glucose Random Glucose Calcium Phosphorus Magnesium Total Protein (PEP) Albumin Albumin (PEP) Qmghg-8-Lkcqqamjr Wabkr-5-Onidvisqj Ujlx-3-Zdhqdtgr Fzlp-6-Fsfdntbb Gamma Globulins Abnorm Protein Band 1 PEP Interpretation IgG Total IgA Total IgM DARIA Interpretation Complement C3 Complement C4 COVID-19 ([facility]) COVID-19 Clin Com Influenza Type A (PCR) Influenza Type B (PCR) RSV RNA Qual (PCR) SARS-CoV-2 RNA (RT-PCR) 08/25/23 08/25/23 08/25/23 04:53 04:53 04:53 WBC RBC Hgb Cancelled Hct 27.8 L Cancelled MCV 87.7 Cancelled MCH 29.7 MCHC RDW Plt Count MPV Immature Gran % (Auto) Neut % (Auto) Lymph % (Auto) [place] % (Auto) Eos % (Auto) Baso % (Auto) Lymph # (Auto) [place] # (Auto) Eos # (Auto) Baso # (Auto) Abs Immat Gran (auto) Absolute Neuts (auto) Absolute Nucleated RBC Nucleated RBC % (auto) Neutrophils % (Manual) Band Neutrophils % Lymphocytes % (Manual) Monocytes % (Manual) Eosinophils % (Manual) Abs Neuts (Manual) Lymphocytes # (Manual) Monocytes # (Manual) Eosinophils # (Manual) Smudge Cells Toxic Granulation Toxic Vacuolation Dohle Bodies Platelet Estimate Large Platelets Plt Morphology Comment RBC Morphology Polychromasia Basophilic Stippling Macrocytosis Pappenheimer Bodies Tear Drop Cells [place] Bodies [place] Cells Hold Purple Top VBG pH VBG pCO2 VBG pO2 VBG HCO3 VBG O2 Saturation VBG Base Excess Sodium Potassium Chloride Carbon Dioxide Anion Gap BUN Creatinine Estim Creat Clear Calc Estimated GFR POC Glucose Random Glucose Calcium Phosphorus Magnesium Total Protein (PEP) Albumin Albumin (PEP) Glhfn-0-Fsjyiyxro Ghvvo-7-Dphsanmmq Blpp-0-Fdcgzzyb Mxyj-5-Agrgmkrg Gamma Globulins Abnorm Protein Band 1 PEP Interpretation IgG Total IgA Total IgM DARIA Interpretation Complement C3 Complement C4 COVID-19 ([facility]) COVID-19 Clin Com Influenza Type A (PCR) Influenza Type B (PCR) RSV RNA Qual (PCR) SARS-CoV-2 RNA (RT-PCR) 08/25/23 08/25/23 08/25/23 04:53 04:53 04:53 WBC RBC Hgb Hct MCV MCH Cancelled MCHC 33.8 Cancelled RDW 14.4 Cancelled Plt Count 141 L D MPV Immature Gran % (Auto) Neut % (Auto) Lymph % (Auto) [place] % (Auto) Eos % (Auto) Baso % (Auto) Lymph # (Auto) [place] # (Auto) Eos # (Auto) Baso # (Auto) Abs Immat Gran (auto) Absolute Neuts (auto) Absolute Nucleated RBC Nucleated RBC % (auto) Neutrophils % (Manual) Band Neutrophils % Lymphocytes % (Manual) Monocytes % (Manual) Eosinophils % (Manual) Abs Neuts (Manual) Lymphocytes # (Manual) Monocytes # (Manual) Eosinophils # (Manual) Smudge Cells Toxic Granulation Toxic Vacuolation Dohle Bodies Platelet Estimate Large Platelets Plt Morphology Comment RBC Morphology Polychromasia Basophilic Stippling Macrocytosis Pappenheimer Bodies Tear Drop Cells [place] Bodies [place] Cells Hold Purple Top VBG pH VBG pCO2 VBG pO2 VBG HCO3 VBG O2 Saturation VBG Base Excess Sodium Potassium Chloride Carbon Dioxide Anion Gap BUN Creatinine Estim Creat Clear Calc Estimated GFR POC Glucose Random Glucose Calcium Phosphorus Magnesium Total Protein (PEP) Albumin Albumin (PEP) Vuogm-9-Oqakoivva Kzwkj-0-Nmheuhpil Wcxk-9-Xnofyjdy Jeoy-8-Rgovgnjw Gamma Globulins Abnorm Protein Band 1 PEP Interpretation IgG Total IgA Total IgM DARIA Interpretation Complement C3 Complement C4 COVID-19 ([facility]) COVID-19 Clin Com Influenza Type A (PCR) Influenza Type B (PCR) RSV RNA Qual (PCR) SARS-CoV-2 RNA (RT-PCR) 08/25/23 08/25/23 08/25/23 04:53 04:53 04:53 WBC RBC Hgb Hct MCV MCH MCHC RDW Plt Count Cancelled MPV 13.2 H Cancelled Immature Gran % (Auto) Cancelled Cancelled Neut % (Auto) Cancelled Lymph % (Auto) [place] % (Auto) Eos % (Auto) Baso % (Auto) Lymph # (Auto) [place] # (Auto) Eos # (Auto) Baso # (Auto) Abs Immat Gran (auto) Absolute Neuts (auto) Absolute Nucleated RBC Nucleated RBC % (auto) Neutrophils % (Manual) Band Neutrophils % Lymphocytes % (Manual) Monocytes % (Manual) Eosinophils % (Manual) Abs Neuts (Manual) Lymphocytes # (Manual) Monocytes # (Manual) Eosinophils # (Manual) Smudge Cells Toxic Granulation Toxic Vacuolation Dohle Bodies Platelet Estimate Large Platelets Plt Morphology Comment RBC Morphology Polychromasia Basophilic Stippling Macrocytosis Pappenheimer Bodies Tear Drop Cells [place] Bodies [place] Cells Hold Purple Top VBG pH VBG pCO2 VBG pO2 VBG HCO3 VBG O2 Saturation VBG Base Excess Sodium Potassium Chloride Carbon Dioxide Anion Gap BUN Creatinine Estim Creat Clear Calc Estimated GFR POC Glucose Random Glucose Calcium Phosphorus Magnesium Total Protein (PEP) Albumin Albumin (PEP) Pyddk-9-Qxzkzpxbs Twvnf-3-Dtokwfnoh Wzjv-6-Yntkybpm Bpie-2-Axdnphvt Gamma Globulins Abnorm Protein Band 1 PEP Interpretation IgG Total IgA Total IgM DARIA Interpretation Complement C3 Complement C4 COVID-19 ([facility]) COVID-19 Clin Com Influenza Type A (PCR) Influenza Type B (PCR) RSV RNA Qual (PCR) SARS-CoV-2 RNA (RT-PCR) 08/25/23 08/25/23 08/25/23 04:53 04:53 04:53 WBC RBC Hgb Hct MCV MCH MCHC RDW Plt Count MPV Immature Gran % (Auto) Neut % (Auto) Cancelled Lymph % (Auto) Cancelled Cancelled [place] % (Auto) Cancelled Cancelled Eos % (Auto) Cancelled Baso % (Auto) Lymph # (Auto) [place] # (Auto) Eos # (Auto) Baso # (Auto) Abs Immat Gran (auto) Absolute Neuts (auto) Absolute Nucleated RBC Nucleated RBC % (auto) Neutrophils % (Manual) Band Neutrophils % Lymphocytes % (Manual) Monocytes % (Manual) Eosinophils % (Manual) Abs Neuts (Manual) Lymphocytes # (Manual) Monocytes # (Manual) Eosinophils # (Manual) Smudge Cells Toxic Granulation Toxic Vacuolation Dohle Bodies Platelet Estimate Large Platelets Plt Morphology Comment RBC Morphology Polychromasia Basophilic Stippling Macrocytosis Pappenheimer Bodies Tear Drop Cells [place] Bodies [place] Cells Hold Purple Top VBG pH VBG pCO2 VBG pO2 VBG HCO3 VBG O2 Saturation VBG Base Excess Sodium Potassium Chloride Carbon Dioxide Anion Gap BUN Creatinine Estim Creat Clear Calc Estimated GFR POC Glucose Random Glucose Calcium Phosphorus Magnesium Total Protein (PEP) Albumin Albumin (PEP) Hrxhe-2-Gjzjvbypg Rkmfa-7-Eevoxiewi Bdoa-2-Xfhwmaar Ymuo-9-Ewjcdqty Gamma Globulins Abnorm Protein Band 1 PEP Interpretation IgG Total IgA Total IgM DARIA Interpretation Complement C3 Complement C4 COVID-19 ([facility]) COVID-19 Clin Com Influenza Type A (PCR) Influenza Type B (PCR) RSV RNA Qual (PCR) SARS-CoV-2 RNA (RT-PCR) 08/25/23 08/25/23 08/25/23 04:53 04:53 04:53 WBC RBC Hgb Hct MCV MCH MCHC RDW Plt Count MPV Immature Gran % (Auto) Neut % (Auto) Lymph % (Auto) [place] % (Auto) Eos % (Auto) Cancelled Baso % (Auto) Cancelled Cancelled Lymph # (Auto) Cancelled Cancelled [place] # (Auto) Cancelled Eos # (Auto) Baso # (Auto) Abs Immat Gran (auto) Absolute Neuts (auto) Absolute Nucleated RBC Nucleated RBC % (auto) Neutrophils % (Manual) Band Neutrophils % Lymphocytes % (Manual) Monocytes % (Manual) Eosinophils % (Manual) Abs Neuts (Manual) Lymphocytes # (Manual) Monocytes # (Manual) Eosinophils # (Manual) Smudge Cells Toxic Granulation Toxic Vacuolation Dohle Bodies Platelet Estimate Large Platelets Plt Morphology Comment RBC Morphology Polychromasia Basophilic Stippling Macrocytosis Pappenheimer Bodies Tear Drop Cells [place] Bodies [place] Cells Hold Purple Top VBG pH VBG pCO2 VBG pO2 VBG HCO3 VBG O2 Saturation VBG Base Excess Sodium Potassium Chloride Carbon Dioxide Anion Gap BUN Creatinine Estim Creat Clear Calc Estimated GFR POC Glucose Random Glucose Calcium Phosphorus Magnesium Total Protein (PEP) Albumin Albumin (PEP) Tmhxh-0-Zqfppjual Flont-8-Ukzjeqitj Awsq-2-Dypllnta Ridx-5-Ymxnycjr Gamma Globulins Abnorm Protein Band 1 PEP Interpretation IgG Total IgA Total IgM DARIA Interpretation Complement C3 Complement C4 COVID-19 ([facility]) COVID-19 Clin Com Influenza Type A (PCR) Influenza Type B (PCR) RSV RNA Qual (PCR) SARS-CoV-2 RNA (RT-PCR) 08/25/23 08/25/23 08/25/23 04:53 04:53 04:53 WBC RBC Hgb Hct MCV MCH MCHC RDW Plt Count MPV Immature Gran % (Auto) Neut % (Auto) Lymph % (Auto) [place] % (Auto) Eos % (Auto) Baso % (Auto) Lymph # (Auto) [place] # (Auto) Cancelled Eos # (Auto) Cancelled Cancelled Baso # (Auto) Cancelled Cancelled Abs Immat Gran (auto) Cancelled Absolute Neuts (auto) Absolute Nucleated RBC Nucleated RBC % (auto) Neutrophils % (Manual) Band Neutrophils % Lymphocytes % (Manual) Monocytes % (Manual) Eosinophils % (Manual) Abs Neuts (Manual) Lymphocytes # (Manual) Monocytes # (Manual) Eosinophils # (Manual) Smudge Cells Toxic Granulation Toxic Vacuolation Dohle Bodies Platelet Estimate Large Platelets Plt Morphology Comment RBC Morphology Polychromasia Basophilic Stippling Macrocytosis Pappenheimer Bodies Tear Drop Cells [place] Bodies [place] Cells Hold Purple Top VBG pH VBG pCO2 VBG pO2 VBG HCO3 VBG O2 Saturation VBG Base Excess Sodium Potassium Chloride Carbon Dioxide Anion Gap BUN Creatinine Estim Creat Clear Calc Estimated GFR POC Glucose Random Glucose Calcium Phosphorus Magnesium Total Protein (PEP) Albumin Albumin (PEP) Ihipn-0-Aktllaacq Ctqfp-4-Toelvdatp Xzkz-3-Oozwhriu Mkxm-3-Nzhhzhcg Gamma Globulins Abnorm Protein Band 1 PEP Interpretation IgG Total IgA Total IgM DARIA Interpretation Complement C3 Complement C4 COVID-19 ([facility]) COVID-19 Clin Com Influenza Type A (PCR) Influenza Type B (PCR) RSV RNA Qual (PCR) SARS-CoV-2 RNA (RT-PCR) 08/25/23 08/25/23 08/25/23 04:53 04:53 04:53 WBC RBC Hgb Hct MCV MCH MCHC RDW Plt Count MPV Immature Gran % (Auto) Neut % (Auto) Lymph % (Auto) [place] % (Auto) Eos % (Auto) Baso % (Auto) Lymph # (Auto) [place] # (Auto) Eos # (Auto) Baso # (Auto) Abs Immat Gran (auto) Cancelled Absolute Neuts (auto) Cancelled Cancelled Absolute Nucleated RBC 0.360 H Cancelled Nucleated RBC % (auto) 1.1 H Neutrophils % (Manual) Band Neutrophils % Lymphocytes % (Manual) Monocytes % (Manual) Eosinophils % (Manual) Abs Neuts (Manual) Lymphocytes # (Manual) Monocytes # (Manual) Eosinophils # (Manual) Smudge Cells Toxic Granulation Toxic Vacuolation Dohle Bodies Platelet Estimate Large Platelets Plt Morphology Comment RBC Morphology Polychromasia Basophilic Stippling Macrocytosis Pappenheimer Bodies Tear Drop Cells [place] Bodies [place] Cells Hold Purple Top VBG pH VBG pCO2 VBG pO2 VBG HCO3 VBG O2 Saturation VBG Base Excess Sodium Potassium Chloride Carbon Dioxide Anion Gap BUN Creatinine Estim Creat Clear Calc Estimated GFR POC Glucose Random Glucose Calcium Phosphorus Magnesium Total Protein (PEP) Albumin Albumin (PEP) Hfsxf-9-Rvwrjnmsf Fwnnd-5-Jywknghgt Akhl-8-Ffnrqwze Mpjn-0-Prvmakzi Gamma Globulins Abnorm Protein Band 1 PEP Interpretation IgG Total IgA Total IgM DARIA Interpretation Complement C3 Complement C4 COVID-19 ([facility]) COVID-19 Clin Com Influenza Type A (PCR) Influenza Type B (PCR) RSV RNA Qual (PCR) SARS-CoV-2 RNA (RT-PCR) 08/25/23 08/25/23 04:53 04:54 WBC RBC Hgb Hct MCV MCH MCHC RDW Plt Count MPV Immature Gran % (Auto) Neut % (Auto) Lymph % (Auto) [place] % (Auto) Eos % (Auto) Baso % (Auto) Lymph # (Auto) [place] # (Auto) Eos # (Auto) Baso # (Auto) Abs Immat Gran (auto) Absolute Neuts (auto) Absolute Nucleated RBC Nucleated RBC % (auto) Cancelled Neutrophils % (Manual) 80 H Band Neutrophils % 10 H Lymphocytes % (Manual) 3 L Monocytes % (Manual) 6 Eosinophils % (Manual) 1 Abs Neuts (Manual) 29.9 H Lymphocytes # (Manual) 1.0 L Monocytes # (Manual) 2.0 H Eosinophils # (Manual) 0.3 Smudge Cells PRESENT Toxic Granulation PRESENT Toxic Vacuolation PRESENT Dohle Bodies PRESENT Platelet Estimate SLIGHTLY DECREASED Large Platelets PRESENT Plt Morphology Comment NOTED RBC Morphology NOTED Polychromasia 1+ (0-2) Basophilic Stippling 1+ (0-2) Macrocytosis 1+ (5-14) Pappenheimer Bodies PRESENT Tear Drop Cells 1+ (0-2) [place] Bodies PRESENT [place]on Cells 1+ (0-2) Hold Purple Top SEE NOTE VBG pH 7.41 VBG pCO2 36 VBG pO2 58 VBG HCO3 23 VBG O2 Saturation 82.0 VBG Base Excess -0.3 Sodium 134 L Potassium 3.4 Chloride 94 L Carbon Dioxide 22 Anion Gap 21 H BUN 125 H Creatinine 6.49 H* Estim Creat Clear Calc 9.3 Estimated GFR 6 POC Glucose Random Glucose 69 Calcium 7.1 L Phosphorus 6.2 H Magnesium 2.7 H Total Protein (PEP) Albumin 2.7 L Albumin (PEP) Zqpaj-5-Gzgrcvsut Gajnb-8-Opjdiuaok Llbx-3-Zzjzyotz Ctnj-1-Fuknsxak Gamma Globulins Abnorm Protein Band 1 PEP Interpretation IgG Total IgA Total IgM DARIA Interpretation Complement C3 Complement C4 COVID-19 ([facility]) COVID-19 Clin Com Influenza Type A (PCR) Influenza Type B (PCR) RSV RNA Qual (PCR) SARS-CoV-2 RNA (RT-PCR) Microbiology Microbiology Results: Microbiology 08/18/23 21:45 Blood - Venous Blood Culture - Final Streptococcus pneumoniae 08/18/23 20:17 Blood - Venous Blood Culture - Final Streptococcus pneumoniae Progress Note: A&P Assessment and plan (1) Streptococcal pneumonia: Status: Acute (2) Septic shock due to streptococcal infection: Status: Acute (3) Acute hypoxic respiratory failure: Status: Acute (4) BRE (acute kidney injury): Status: Acute (5) Sarcoidosis: Status: Acute (6) Rheumatoid arthritis involving multiple joints: Status: Acute Plan Assessment: 73-year-old lady admitted with septic shock secondary to streptococcal pneumonia further complicated by acute renal failure requiring hemodialysis support and septic encephalopathy Plan: Neuro: Poor arousal with sedation vacation likely secondary to septic encephalopathy, also with uremic component. Continue to monitor clinically. Cardiac: Septic shock, resolved, titrated off pressors. Pulmonary: Acute hypoxic respiratory failure requiring ventilatory support secondary to streptococcal pneumonia on the background of sarcoidosis Renal: Acute renal failure on the background of septic shock, likely ATN. Nephrology service care appreciated. Continue hemodialysis support. Underlying MGUS. Endo: No acute issues. GI: No acute issues. ID: Streptococcal pneumonia, continue ceftriaxone. Heme/Onc: No acute issues. Psych: No acute issues. Miscellaneous: No acute issues. Prophylaxis: Heparin, ppi Diet: Tube feeds Critical care time spent: 60 minutes Quality Stroke Does the patient have a stroke diagnosis?: No VTE Prior VTE?: No VTE Risk Level:: Medical - moderate - high VTE Device Contraindication: N/A - Device Ordered VTE Drug Contraindication: Treatment Not Tolerated
--- NOTE | 2023-08-25 10:12 | MHC.CLN ---
F/U DISCUSSED WITH MD AT ROUNDS PT TOLERATING TRICKLE FEED NEPRO AT 20ML/HR PROVIDES 864KCALS (1345KCALS WITH [id number]/KG), 39G PROTEIN, 349ML FREE WATER FROM FORMULA RECOMMEND NEPRO AT MAX GOAL RATE 25 ML PER HOUR WITH 120 ML FREE WATER FLUSHES Q 6 HOURS TO PROVIDE 1080 KCALS (1561 KCALS WITH SEDATION, 26.4 KCALS/KG IBW); 49 G PROTEIN (.82 G/KG IBW); 916 ML FREE WATER FROM FORMULA AND FLUSH (15.5 ML/KG IBW) MONITOR TOLERANCE, RESIDUALS AND LYTES
[2023-08-25] MEDS: Heparin Sodium,Porcine 5,000 UNIT/ML VIAL 5000 UNIT SUBCUT ×2 (10:36→17:30)
--- NOTE | 2023-08-25 10:59 | P.CDIM_ITS ---
PROVIDER RESPONSE TEXT: To clarify, the appropriate diagnosis supported by the clinical indicators: Acute metabolic acidosis QUERY TEXT: PHYSICIAN'S DOCUMENTATION REQUEST Date of Query: 08/25/2023 10:30 AM EST Patient Name: Tasha Nieto Admit Date: 08/19/2023 Dear Wilberto Hawkins, A review of the medical record indicates additional documentation may be needed. Please review below and update the documentation accordingly. Clinical Indicators: H&P: Assessment - Metabolic and lactic acidosis Clarify which of the following accurately represents the acuity of the metabolic acidosis: Possible options might include: Acute metabolic acidosis Other Other (explain) Clinically unable to determine (explain) Thank you, Jennifer Kendrick, CCS, CDIS Use of terms such as suspected, likely, concern for, or probable (associated with a specific diagnosi s that is being evaluated, monitored, or treated as if it exists) are acceptable and can be coded in the inpatient se tting, when documented at the time of discharge. Please use your independent medical judgment in providing your response. THIS QUERY IS PART OF THE PERMANENT MEDICAL RECORD
[2023-08-25 11:59] LABS: Glucose, Whole Blood 94 mg/dL (60-115)
[2023-08-25 12:34] LABS: Angiotensin Converting Enzyme 10 U/L (9-67)
[2023-08-25 13:34] LABS: Anti Glomerular Basement Memb <1.0 AI; Myeloperoxidase Antibody <1.0 AI; Proteinase 3 PR3 Antibodies <1.0 AI
[2023-08-25 14:35] LABS: HBS Num1 0.66 mIU/mL (0-7.99); HBc Num1 0.12 S/CO (0.00-0.79); HBsAGNum1 0.24 S/CO (0.00-0.99); Hepatitis B Core Antibody Nonreactive (Nonreactive); Hepatitis B Surface Antigen Negative (Negative); ~Hepatitis B Surface Antibody NONREACTIVE (Nonreactive)
[2023-08-25 14:43] LABS: Kappa, Serum 339 mg/dL (176-443); Kappa/Lambda Ratio, Serum 10.59 (1.29-2.55); Lambda, Serum 32 mg/dL (91-240)
--- NOTE | 2023-08-25 14:51 | PM.PNNEP ---
Subjective Subjective Date of Service: 08/25/23 Interval history: Seen and examiend, evnts noted HD today UOP marginal Cont pressors AMS despite off sedation remains min responsive Physical Exam Vital Signs: Vital Signs: Last Vital Signs Temp 98.1 F 08/25/23 14:00 Pulse 95 08/25/23 14:40 Resp 18 08/25/23 14:00 BP 161/67 H 08/25/23 14:40 Pulse Ox 93 08/25/23 14:00 O2 Del Method Mechanical Ventil ation 08/25/23 14:00 O2 Flow Rate 55 08/20/23 18:00 FiO2 30 08/25/23 14:00 BMI result Body Mass Index 35.9 Const: Other: intubated, sedated Resp: Other: on ventilator Cardio: Rate: tachycardic Rhythm: regular rhythm GI: Inspection: Yes normal to inspection and No distended Palpation (GI): not firm, nontender, no guarding and not rigid Neuro: Other: intubated, sedated Extrem: Other: non-pitting edema throughout Objective Data Labs 08/25/23 04:53 08/25/23 04:53 Labs: Laboratory Results - last 24 hr 08/21/23 08/21/23 08/22/23 13:31 13:56 07:05 WBC RBC Hgb Hct MCV MCH MCHC RDW Plt Count MPV Immature Gran % (Auto) Neut % (Auto) Lymph % (Auto) [place] % (Auto) Eos % (Auto) Baso % (Auto) Lymph # (Auto) [place] # (Auto) Eos # (Auto) Baso # (Auto) Abs Immat Gran (auto) Absolute Neuts (auto) Absolute Nucleated RBC Nucleated RBC % (auto) Neutrophils % (Manual) Band Neutrophils % Lymphocytes % (Manual) Monocytes % (Manual) Eosinophils % (Manual) Abs Neuts (Manual) Lymphocytes # (Manual) Monocytes # (Manual) Eosinophils # (Manual) Smudge Cells Toxic Granulation Toxic Vacuolation Dohle Bodies Platelet Estimate Large Platelets Plt Morphology Comment RBC Morphology Polychromasia Basophilic Stippling Macrocytosis Pappenheimer Bodies Tear Drop Cells Spear-Mccurtain Bodies [place] Cells Hold Purple Top VBG pH VBG pCO2 VBG pO2 VBG HCO3 VBG O2 Saturation VBG Base Excess Sodium Potassium Chloride Carbon Dioxide Anion Gap BUN Creatinine Estim Creat Clear Calc Estimated GFR POC Glucose Random Glucose Calcium Phosphorus Magnesium Total Protein (PEP) 5.0 L 6.3 Albumin Albumin (PEP) 2.8 L 3.4 L Oflew-7-Ngkbmyvhc 0.4 H 0.7 H Bvxxk-5-Yndgmvzxz 0.6 0.8 Emex-8-Wqprssws 0.2 L 0.2 L [facility]-5-Lqqekzbg 0.1 L 0.2 Gamma Globulins 0.9 1.1 Abnorm Protein Band 1 0.7 H 0.8 H Abnorm Protein Band 2 TNP TNP Abnorm Protein Band 3 TNP TNP PEP Interpretation SEE NOTE SEE NOTE Angiotensin Convert Enz 10 IgG Total 1145 IgA Total 18 L IgM 15 L Grassflat/Lambda Ratio 10.59 H DARIA Interpretation SEE NOTE Proteinase 3 (PR3) Ab <1.0 Myeloperoxidase Ab <1.0 Glomerular Base Memb Ab <1.0 Complement C3 16 L Complement C4 <3 L Grassflat Light Chain Anal 339 Lambda Light Chain Anal 32 L COVID-19 ([facility]J) COVID-19 Clin Com Influenza Type A (PCR) Influenza Type B (PCR) RSV RNA Qual (PCR) SARS-CoV-2 RNA (RT-PCR) 08/24/23 08/24/23 08/25/23 18:01 22:46 00:30 WBC RBC Hgb Hct MCV MCH MCHC RDW Plt Count MPV Immature Gran % (Auto) Neut % (Auto) Lymph % (Auto) [place] % (Auto) Eos % (Auto) Baso % (Auto) Lymph # (Auto) [place] # (Auto) Eos # (Auto) Baso # (Auto) Abs Immat Gran (auto) Absolute Neuts (auto) Absolute Nucleated RBC Nucleated RBC % (auto) Neutrophils % (Manual) Band Neutrophils % Lymphocytes % (Manual) Monocytes % (Manual) Eosinophils % (Manual) Abs Neuts (Manual) Lymphocytes # (Manual) Monocytes # (Manual) Eosinophils # (Manual) Smudge Cells Toxic Granulation Toxic Vacuolation Dohle Bodies Platelet Estimate Large Platelets Plt Morphology Comment RBC Morphology Polychromasia Basophilic Stippling Macrocytosis Pappenheimer Bodies Tear Drop Cells Spear-Mccurtain Bodies [place] Cells Hold Purple Top VBG pH VBG pCO2 VBG pO2 VBG HCO3 VBG O2 Saturation VBG Base Excess Sodium Potassium Chloride Carbon Dioxide Anion Gap BUN Creatinine Estim Creat Clear Calc Estimated GFR POC Glucose 84 78 Random Glucose Calcium Phosphorus Magnesium Total Protein (PEP) Albumin Albumin (PEP) Jzbol-0-Vnrldlnbx Rcmps-7-Vzporezio Clne-3-Zzbiefiv Qtqv-6-Fespeyyk Gamma Globulins Abnorm Protein Band 1 Abnorm Protein Band 2 Abnorm Protein Band 3 PEP Interpretation Angiotensin Convert Enz IgG Total IgA Total IgM Grassflat/Lambda Ratio DARIA Interpretation Proteinase 3 (PR3) Ab Myeloperoxidase Ab Glomerular Base Memb Ab Complement C3 Complement C4 Grass[place] Light Chain Anal Lambda Light Chain Anal COVID-19 ([facility]) Cancelled COVID-19 Clin Com Cancelled Influenza Type A (PCR) NEGATIVE Influenza Type B (PCR) NEGATIVE RSV RNA Qual (PCR) NEGATIVE SARS-CoV-2 RNA (RT-PCR) NEGATIVE 08/25/23 08/25/23 08/25/23 04:53 04:53 04:53 WBC 33.2 H* Cancelled RBC 3.17 L Cancelled Hgb 9.4 L Hct MCV MCH MCHC RDW Plt Count MPV Immature Gran % (Auto) Neut % (Auto) Lymph % (Auto) [place] % (Auto) Eos % (Auto) Baso % (Auto) Lymph # (Auto) [place] # (Auto) Eos # (Auto) Baso # (Auto) Abs Immat Gran (auto) Absolute Neuts (auto) Absolute Nucleated RBC Nucleated RBC % (auto) Neutrophils % (Manual) Band Neutrophils % Lymphocytes % (Manual) Monocytes % (Manual) Eosinophils % (Manual) Abs Neuts (Manual) Lymphocytes # (Manual) Monocytes # (Manual) Eosinophils # (Manual) Smudge Cells Toxic Granulation Toxic Vacuolation Dohle Bodies Platelet Estimate Large Platelets Plt Morphology Comment RBC Morphology Polychromasia Basophilic Stippling Macrocytosis Pappenheimer Bodies Tear Drop Cells Spear-Mccurt[place] Bodies [place] Cells Hold Purple Top VBG pH VBG pCO2 VBG pO2 VBG HCO3 VBG O2 Saturation VBG Base Excess Sodium Potassium Chloride Carbon Dioxide Anion Gap BUN Creatinine Estim Creat Clear Calc Estimated GFR POC Glucose Random Glucose Calcium Phosphorus Magnesium Total Protein (PEP) Albumin Albumin (PEP) Udifl-3-Jnvmzuujh Fmgcv-1-Ezhxlupor Gxwj-6-Kbjwkdio Evrh-1-Qlpyurnf Gamma Globulins Abnorm Protein Band 1 Abnorm Protein Band 2 Abnorm Protein Band 3 PEP Interpretation Angiotensin Convert Enz IgG Total IgA Total IgM Grassflat/Lambda Ratio DARIA Interpretation Proteinase 3 (PR3) Ab Myeloperoxidase Ab Glomerular Base Memb Ab Complement C3 Complement C4 [place] Light Chain Anal Lambda Light Chain Anal COVID-19 ([facility]) COVID-19 Clin Com Influenza Type A (PCR) Influenza Type B (PCR) RSV RNA Qual (PCR) SARS-CoV-2 RNA (RT-PCR) 08/25/23 08/25/23 08/25/23 04:53 04:53 04:53 WBC RBC Hgb Cancelled Hct 27.8 L Cancelled MCV 87.7 Cancelled MCH 29.7 MCHC RDW Plt Count MPV Immature Gran % (Auto) Neut % (Auto) Lymph % (Auto) [place] % (Auto) Eos % (Auto) Baso % (Auto) Lymph # (Auto) [place] # (Auto) Eos # (Auto) Baso # (Auto) Abs Immat Gran (auto) Absolute Neuts (auto) Absolute Nucleated RBC Nucleated RBC % (auto) Neutrophils % (Manual) Band Neutrophils % Lymphocytes % (Manual) Monocytes % (Manual) Eosinophils % (Manual) Abs Neuts (Manual) Lymphocytes # (Manual) Monocytes # (Manual) Eosinophils # (Manual) Smudge Cells Toxic Granulation Toxic Vacuolation Dohle Bodies Platelet Estimate Large Platelets Plt Morphology Comment RBC Morphology Polychromasia Basophilic Stippling Macrocytosis Pappenheimer Bodies Tear Drop Cells Spear-Mccurtain Bodies [place] Cells Hold Purple Top VBG pH VBG pCO2 VBG pO2 VBG HCO3 VBG O2 Saturation VBG Base Excess Sodium Potassium Chloride Carbon Dioxide Anion Gap BUN Creatinine Estim Creat Clear Calc Estimated GFR POC Glucose Random Glucose Calcium Phosphorus Magnesium Total Protein (PEP) Albumin Albumin (PEP) Hqopo-1-Sigumtcop Kephw-9-Tpplcdqrg Mggp-8-Aysxtocg Erhe-8-Hfgoibdz Gamma Globulins Abnorm Protein Band 1 Abnorm Protein Band 2 Abnorm Protein Band 3 PEP Interpretation Angiotensin Convert Enz IgG Total IgA Total IgM Grassflat/Lambda Ratio DARIA Interpretation Proteinase 3 (PR3) Ab Myeloperoxidase Ab Glomerular Base Memb Ab Complement C3 Complement C4 [place] Light Chain Anal Lambda Light Chain Anal COVID-19 ([facility]) COVID-19 Clin Com Influenza Type A (PCR) Influenza Type B (PCR) RSV RNA Qual (PCR) SARS-CoV-2 RNA (RT-PCR) 08/25/23 08/25/23 08/25/23 04:53 04:53 04:53 WBC RBC Hgb Hct MCV MCH Cancelled MCHC 33.8 Cancelled RDW 14.4 Cancelled Plt Count 141 L D MPV Immature Gran % (Auto) Neut % (Auto) Lymph % (Auto) [place] % (Auto) Eos % (Auto) Baso % (Auto) Lymph # (Auto) [place] # (Auto) Eos # (Auto) Baso # (Auto) Abs Immat Gran (auto) Absolute Neuts (auto) Absolute Nucleated RBC Nucleated RBC % (auto) Neutrophils % (Manual) Band Neutrophils % Lymphocytes % (Manual) Monocytes % (Manual) Eosinophils % (Manual) Abs Neuts (Manual) Lymphocytes # (Manual) Monocytes # (Manual) Eosinophils # (Manual) Smudge Cells Toxic Granulation Toxic Vacuolation Dohle Bodies Platelet Estimate Large Platelets Plt Morphology Comment RBC Morphology Polychromasia Basophilic Stippling Macrocytosis Pappenheimer Bodies Tear Drop Cells Spear-Mccurt[place] Bodies [place] Cells Hold Purple Top VBG pH VBG pCO2 VBG pO2 VBG HCO3 VBG O2 Saturation VBG Base Excess Sodium Potassium Chloride Carbon Dioxide Anion Gap BUN Creatinine Estim Creat Clear Calc Estimated GFR POC Glucose Random Glucose Calcium Phosphorus Magnesium Total Protein (PEP) Albumin Albumin (PEP) Dxosr-8-Vnqmtiise Lwbpr-6-Tszudmwvc Lwbj-5-Bjzuquja Tgod-1-Wccjrvlc Gamma Globulins Abnorm Protein Band 1 Abnorm Protein Band 2 Abnorm Protein Band 3 PEP Interpretation Angiotensin Convert Enz IgG Total IgA Total IgM Grass[place]/Lambda Ratio DARIA Interpretation Proteinase 3 (PR3) Ab Myeloperoxidase Ab Glomerular Base Memb Ab Complement C3 Complement C4 [place] Light Chain Anal Lambda Light Chain Anal COVID-19 ([facility]) COVID-19 Clin Com Influenza Type A (PCR) Influenza Type B (PCR) RSV RNA Qual (PCR) SARS-CoV-2 RNA (RT-PCR) 08/25/23 08/25/23 08/25/23 04:53 04:53 04:53 WBC RBC Hgb Hct MCV MCH MCHC RDW Plt Count Cancelled MPV 13.2 H Cancelled Immature Gran % (Auto) Cancelled Cancelled Neut % (Auto) Cancelled Lymph % (Auto) [place] % (Auto) Eos % (Auto) Baso % (Auto) Lymph # (Auto) [place] # (Auto) Eos # (Auto) Baso # (Auto) Abs Immat Gran (auto) Absolute Neuts (auto) Absolute Nucleated RBC Nucleated RBC % (auto) Neutrophils % (Manual) Band Neutrophils % Lymphocytes % (Manual) Monocytes % (Manual) Eosinophils % (Manual) Abs Neuts (Manual) Lymphocytes # (Manual) Monocytes # (Manual) Eosinophils # (Manual) Smudge Cells Toxic Granulation Toxic Vacuolation Dohle Bodies Platelet Estimate Large Platelets Plt Morphology Comment RBC Morphology Polychromasia Basophilic Stippling Macrocytosis Pappenheimer Bodies Tear Drop Cells Spear-Mccurt[place] Bodies [place] Cells Hold Purple Top VBG pH VBG pCO2 VBG pO2 VBG HCO3 VBG O2 Saturation VBG Base Excess Sodium Potassium Chloride Carbon Dioxide Anion Gap BUN Creatinine Estim Creat Clear Calc Estimated GFR POC Glucose Random Glucose Calcium Phosphorus Magnesium Total Protein (PEP) Albumin Albumin (PEP) Awggc-0-Fqklksira Jniau-8-Jncxvllgi Fwko-9-Ipikhqcz Kwbo-3-Qsvvkqby Gamma Globulins Abnorm Protein Band 1 Abnorm Protein Band 2 Abnorm Protein Band 3 PEP Interpretation Angiotensin Convert Enz IgG Total IgA Total IgM Grassflat/Lambda Ratio DARIA Interpretation Proteinase 3 (PR3) Ab Myeloperoxidase Ab Glomerular Base Memb Ab Complement C3 Complement C4 [place] Light Chain Anal Lambda Light Chain Anal COVID-19 ([facility]) COVID-19 Clin Com Influenza Type A (PCR) Influenza Type B (PCR) RSV RNA Qual (PCR) SARS-CoV-2 RNA (RT-PCR) 08/25/23 08/25/23 08/25/23 04:53 04:53 04:53 WBC RBC Hgb Hct MCV MCH MCHC RDW Plt Count MPV Immature Gran % (Auto) Neut % (Auto) Cancelled Lymph % (Auto) Cancelled Cancelled [place] % (Auto) Cancelled Cancelled Eos % (Auto) Cancelled Baso % (Auto) Lymph # (Auto) [place] # (Auto) Eos # (Auto) Baso # (Auto) Abs Immat Gran (auto) Absolute Neuts (auto) Absolute Nucleated RBC Nucleated RBC % (auto) Neutrophils % (Manual) Band Neutrophils % Lymphocytes % (Manual) Monocytes % (Manual) Eosinophils % (Manual) Abs Neuts (Manual) Lymphocytes # (Manual) Monocytes # (Manual) Eosinophils # (Manual) Smudge Cells Toxic Granulation Toxic Vacuolation Dohle Bodies Platelet Estimate Large Platelets Plt Morphology Comment RBC Morphology Polychromasia Basophilic Stippling Macrocytosis Pappenheimer Bodies Tear Drop Cells Spear-Mccurt[place] Bodies [place] Cells Hold Purple Top VBG pH VBG pCO2 VBG pO2 VBG HCO3 VBG O2 Saturation VBG Base Excess Sodium Potassium Chloride Carbon Dioxide Anion Gap BUN Creatinine Estim Creat Clear Calc Estimated GFR POC Glucose Random Glucose Calcium Phosphorus Magnesium Total Protein (PEP) Albumin Albumin (PEP) Jioik-5-Vpzzboqnu Wilmf-0-Uuwunbhcc Mkao-4-Ctjomnpg Uidm-5-Milwpbbx Gamma Globulins Abnorm Protein Band 1 Abnorm Protein Band 2 Abnorm Protein Band 3 PEP Interpretation Angiotensin Convert Enz IgG Total IgA Total IgM Grass[place]/Lambda Ratio DARIA Interpretation Proteinase 3 (PR3) Ab Myeloperoxidase Ab Glomerular Base Memb Ab Complement C3 Complement C4 [place] Light Chain Anal Lambda Light Chain Anal COVID-19 ([facility]) COVID-19 Clin Com Influenza Type A (PCR) Influenza Type B (PCR) RSV RNA Qual (PCR) SARS-CoV-2 RNA (RT-PCR) 08/25/23 08/25/23 08/25/23 04:53 04:53 04:53 WBC RBC Hgb Hct MCV MCH MCHC RDW Plt Count MPV Immature Gran % (Auto) Neut % (Auto) Lymph % (Auto) [place] % (Auto) Eos % (Auto) Cancelled Baso % (Auto) Cancelled Cancelled Lymph # (Auto) Cancelled Cancelled [place] # (Auto) Cancelled Eos # (Auto) Baso # (Auto) Abs Immat Gran (auto) Absolute Neuts (auto) Absolute Nucleated RBC Nucleated RBC % (auto) Neutrophils % (Manual) Band Neutrophils % Lymphocytes % (Manual) Monocytes % (Manual) Eosinophils % (Manual) Abs Neuts (Manual) Lymphocytes # (Manual) Monocytes # (Manual) Eosinophils # (Manual) Smudge Cells Toxic Granulation Toxic Vacuolation Dohle Bodies Platelet Estimate Large Platelets Plt Morphology Comment RBC Morphology Polychromasia Basophilic Stippling Macrocytosis Pappenheimer Bodies Tear Drop Cells Spear-Mccurt[place] Bodies [place] Cells Hold Purple Top VBG pH VBG pCO2 VBG pO2 VBG HCO3 VBG O2 Saturation VBG Base Excess Sodium Potassium Chloride Carbon Dioxide Anion Gap BUN Creatinine Estim Creat Clear Calc Estimated GFR POC Glucose Random Glucose Calcium Phosphorus Magnesium Total Protein (PEP) Albumin Albumin (PEP) Kbtrf-9-Qdghjvmdw Ljqph-9-Vqfheslxq Brvd-5-Gonjpmct Deki-7-Ksjkaqvr Gamma Globulins Abnorm Protein Band 1 Abnorm Protein Band 2 Abnorm Protein Band 3 PEP Interpretation Angiotensin Convert Enz IgG Total IgA Total IgM Grass[place]/Lambda Ratio DARIA Interpretation Proteinase 3 (PR3) Ab Myeloperoxidase Ab Glomerular Base Memb Ab Complement C3 Complement C4 [place] Light Chain Anal Lambda Light Chain Anal COVID-19 ([facility]) COVID-19 Clin Com Influenza Type A (PCR) Influenza Type B (PCR) RSV RNA Qual (PCR) SARS-CoV-2 RNA (RT-PCR) 08/25/23 08/25/23 08/25/23 04:53 04:53 04:53 WBC RBC Hgb Hct MCV MCH MCHC RDW Plt Count MPV Immature Gran % (Auto) Neut % (Auto) Lymph % (Auto) [place] % (Auto) Eos % (Auto) Baso % (Auto) Lymph # (Auto) [place] # (Auto) Cancelled Eos # (Auto) Cancelled Cancelled Baso # (Auto) Cancelled Cancelled Abs Immat Gran (auto) Cancelled Absolute Neuts (auto) Absolute Nucleated RBC Nucleated RBC % (auto) Neutrophils % (Manual) Band Neutrophils % Lymphocytes % (Manual) Monocytes % (Manual) Eosinophils % (Manual) Abs Neuts (Manual) Lymphocytes # (Manual) Monocytes # (Manual) Eosinophils # (Manual) Smudge Cells Toxic Granulation Toxic Vacuolation Dohle Bodies Platelet Estimate Large Platelets Plt Morphology Comment RBC Morphology Polychromasia Basophilic Stippling Macrocytosis Pappenheimer Bodies Tear Drop Cells Spear-Mccurt[place] Bodies [place] Cells Hold Purple Top VBG pH VBG pCO2 VBG pO2 VBG HCO3 VBG O2 Saturation VBG Base Excess Sodium Potassium Chloride Carbon Dioxide Anion Gap BUN Creatinine Estim Creat Clear Calc Estimated GFR POC Glucose Random Glucose Calcium Phosphorus Magnesium Total Protein (PEP) Albumin Albumin (PEP) Iekyh-6-Rxyihdfpf Pkxhh-4-Lyubefgeg Stqn-9-Yeertapc Lmbz-7-Mvvcjmyc Gamma Globulins Abnorm Protein Band 1 Abnorm Protein Band 2 Abnorm Protein Band 3 PEP Interpretation Angiotensin Convert Enz IgG Total IgA Total IgM Grass[place]/Lambda Ratio DARIA Interpretation Proteinase 3 (PR3) Ab Myeloperoxidase Ab Glomerular Base Memb Ab Complement C3 Complement C4 [place] Light Chain Anal Lambda Light Chain Anal COVID-19 ([facility]) COVID-19 Clin Com Influenza Type A (PCR) Influenza Type B (PCR) RSV RNA Qual (PCR) SARS-CoV-2 RNA (RT-PCR) 08/25/23 08/25/23 08/25/23 04:53 04:53 04:53 WBC RBC Hgb Hct MCV MCH MCHC RDW Plt Count MPV Immature Gran % (Auto) Neut % (Auto) Lymph % (Auto) [place] % (Auto) Eos % (Auto) Baso % (Auto) Lymph # (Auto) [place] # (Auto) Eos # (Auto) Baso # (Auto) Abs Immat Gran (auto) Cancelled Absolute Neuts (auto) Cancelled Cancelled Absolute Nucleated RBC 0.360 H Cancelled Nucleated RBC % (auto) 1.1 H Neutrophils % (Manual) Band Neutrophils % Lymphocytes % (Manual) Monocytes % (Manual) Eosinophils % (Manual) Abs Neuts (Manual) Lymphocytes # (Manual) Monocytes # (Manual) Eosinophils # (Manual) Smudge Cells Toxic Granulation Toxic Vacuolation Dohle Bodies Platelet Estimate Large Platelets Plt Morphology Comment RBC Morphology Polychromasia Basophilic Stippling Macrocytosis Pappenheimer Bodies Tear Drop Cells Spear-Mccurt[place] Bodies [place] Cells Hold Purple Top VBG pH VBG pCO2 VBG pO2 VBG HCO3 VBG O2 Saturation VBG Base Excess Sodium Potassium Chloride Carbon Dioxide Anion Gap BUN Creatinine Estim Creat Clear Calc Estimated GFR POC Glucose Random Glucose Calcium Phosphorus Magnesium Total Protein (PEP) Albumin Albumin (PEP) Tjruu-6-Baungexxo Tpouh-9-Brtzzsfbo Myqp-1-Yrytnqaw Koyz-3-Gwkqxifl Gamma Globulins Abnorm Protein Band 1 Abnorm Protein Band 2 Abnorm Protein Band 3 PEP Interpretation Angiotensin Convert Enz IgG Total IgA Total IgM Grass[place]/Lambda Ratio DARIA Interpretation Proteinase 3 (PR3) Ab Myeloperoxidase Ab Glomerular Base Memb Ab Complement C3 Complement C4 [place] Light Chain Anal Lambda Light Chain Anal COVID-19 ([facility]) COVID-19 Clin Com Influenza Type A (PCR) Influenza Type B (PCR) RSV RNA Qual (PCR) SARS-CoV-2 RNA (RT-PCR) 08/25/23 08/25/23 08/25/23 04:53 04:54 11:44 WBC RBC Hgb Hct MCV MCH MCHC RDW Plt Count MPV Immature Gran % (Auto) Neut % (Auto) Lymph % (Auto) [place] % (Auto) Eos % (Auto) Baso % (Auto) Lymph # (Auto) [place] # (Auto) Eos # (Auto) Baso # (Auto) Abs Immat Gran (auto) Absolute Neuts (auto) Absolute Nucleated RBC Nucleated RBC % (auto) Cancelled Neutrophils % (Manual) 80 H Band Neutrophils % 10 H Lymphocytes % (Manual) 3 L Monocytes % (Manual) 6 Eosinophils % (Manual) 1 Abs Neuts (Manual) 29.9 H Lymphocytes # (Manual) 1.0 L Monocytes # (Manual) 2.0 H Eosinophils # (Manual) 0.3 Smudge Cells PRESENT Toxic Granulation PRESENT Toxic Vacuolation PRESENT Dohle Bodies PRESENT Platelet Estimate SLIGHTLY DECREASED Large Platelets PRESENT Plt Morphology Comment NOTED RBC Morphology NOTED Polychromasia 1+ (0-2) Basophilic Stippling 1+ (0-2) Macrocytosis 1+ (5-14) Pappenheimer Bodies PRESENT Tear Drop Cells 1+ (0-2) Spear-Mccurtain Bodies PRESENT [place] Cells 1+ (0-2) Hold Purple Top SEE NOTE VBG pH 7.41 VBG pCO2 36 VBG pO2 58 VBG HCO3 23 VBG O2 Saturation 82.0 VBG Base Excess -0.3 Sodium 134 L Potassium 3.4 Chloride 94 L Carbon Dioxide 22 Anion Gap 21 H BUN 125 H Creatinine 6.49 H* Estim Creat Clear Calc 9.3 Estimated GFR 6 POC Glucose 94 Random Glucose 69 Calcium 7.1 L Phosphorus 6.2 H Magnesium 2.7 H Total Protein (PEP) Albumin 2.7 L Albumin (PEP) Suhut-8-Vqfmokhfh Owcyq-6-Jjwrbelyg Wnve-0-Ukkehwhy Pfcn-4-Khxodfgo Gamma Globulins Abnorm Protein Band 1 Abnorm Protein Band 2 Abnorm Protein Band 3 PEP Interpretation Angiotensin Convert Enz IgG Total IgA Total IgM Grass[place]/Lambda Ratio DARIA Interpretation Proteinase 3 (PR3) Ab Myeloperoxidase Ab Glomerular Base Memb Ab Complement C3 Complement C4 [place] Light Chain Anal Lambda Light Chain Anal COVID-19 ([facility]) COVID-19 Clin Com Influenza Type A (PCR) Influenza Type B (PCR) RSV RNA Qual (PCR) SARS-CoV-2 RNA (RT-PCR) Microbiology Microbiology Results: Microbiology 08/18/23 21:45 Blood - Venous Blood Culture - Final Streptococcus pneumoniae 08/18/23 20:17 Blood - Venous Blood Culture - Final Streptococcus pneumoniae Procedures Date of Service Date of Service: 08/25/23 Assessment & Plan Assessment and plan (1) Septic shock due to Gram positive bacteria: Status: Inactive Plan Ms. 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 Course is complicated by BRE, and volume overload refractory to IV diuresis now requireing HD support Ser results noted IgGK ( known H/O going back > 1 year) Low C3 and C4: h/o CVDz but also raises quesof IM Cx GN assoc with infetion ( PIGN) anca pending incr PLT makes TMA unlikley Etiology of BRE: most c/w sepsis assoc ATN A) Pre-renal unlikely given the lack of response to Pressors and IVF support B) ATN from sepsis and inflammatory cytokine storm is very likely. ALso patient underwent couple bouts of CT contrast . C) Glomerular disease given sarcoid and RA history is possible and now with low C3 C$ also raises ques of ( PIGN) as well D) AIN is always on the differential E) infectious GN is possible as well. F) Obstruction has been ruled out. REC: HD today and most likely again tomorrow; track UOP trending up and metabolic; may need to consider pros/cons of kiney Bx next week depending on clinical course and if renal func does not improve D/W Dr Hawkins Time Spent With Patient Time: Total time managing care of this patient today ____ minutes. Progress Note: Quality Stroke Does the patient have a stroke diagnosis?: No
[2023-08-25 15:58] LABS: Anion Gap 18 (12-20); Blood Urea Nitrogen 77 mg/dL (9-16); Calcium 8.2 mg/dL (8.4-10.2); Carbon Dioxide 23 mmol/L (22-29); Chloride 97 mmol/L (96-108); Creatinine Clr Calc Pharmacy 12.8; Estimated Glomerular Filt Rate 9; Glucose Random 113 mg/dL (60-115); Potassium 4.6 mmol/L (3.3-5.1); Sodium 133 mmol/L (135-145)
[2023-08-25 17:41] LABS: Glucose, Whole Blood 94 mg/dL (60-115)
[2023-08-25 20:13] LABS: Myeloperoxidase Antibody <1.0 AI; Proteinase 3 PR3 Antibodies <1.0 AI
[2023-08-25 23:10] LABS: Glucose, Whole Blood 77 mg/dL (60-115)
[2023-08-25] MEDS: Artificial Tears 15 ML DROPS 2 DROP EYE-BOTH (23:55)
[2023-08-26] VITALS (52 sets, daily range): BP systolic 76–166; BP diastolic 37–76; PULSE 75–102; RESP 18–43; TEMP 34.6–37.3; O2SAT 87–98; BMI 34.9
[2023-08-26] MEDS: Norepinephrine Bitartrate/D5W 8 MG/250 ML PLAST..BAG 8.48 MG IV (00:01)
[2023-08-26] MEDS: Heparin Sodium,Porcine 5,000 UNIT/ML VIAL 5000 UNIT SUBCUT ×3 (01:19→18:28)
[2023-08-26] MEDS: Albuterol Sulfate (0.083%) 2.5 MG/3 ML VIAL.NEB INHALE ×2 (02:10→08:18)
[2023-08-26] MEDS: propofoL 1,000 MG/100 ML VIAL 24.31 MG IVCONT (03:20)
[2023-08-26 04:47] LABS: VBG Base Excess -4.6 mmol/L; VBG HCO3 19 mmol/L (22-26); VBG pCO2 32 mmHg; VBG pH 7.38 (7.32-7.43); VBG pO2 53 mmHg
[2023-08-26 05:07] LABS: Basophils Absolute Auto 0.1 X10*3/uL (0.0-0.2); Basophils Percent Auto 0.3 % (0-2); Eosinophils Absolute Auto 0.1 X10*3/uL (0.0-0.4); Eosinophils Percent Auto 0.3 % (0-4); Hematocrit 26.3 % (37.0-47.0); Hemoglobin 8.8 g/dl (12.0-16.0); Imm Gran Abs Auto 0.77 X10*3/uL (0.00-0.03); Imm Gran Pct Auto 3.5 % (0.0-0.4); Lymphocytes Absolute Auto 0.9 X10*3/uL (1.2-4.9); Lymphocytes Percent Auto 4.3 % (20-40); MANUAL DIFF FLAG SCAN; Mean Corpuscular HGB Conc 33.5 g/dl (31.0-35.0); Mean Corpuscular Volume 89.8 fL (80.0-98.0); Mean Platelet Volume 12.9 fL (9.4-12.3); Monocytes Absolute Auto 2.4 X10*3/uL (0.1-1.2); Monocytes Percent Auto 11.1 % (2-11); Neutrophils Absolute Auto 17.6 x10*3/uL (2.0-8.3); Neutrophils Percent Auto 80.5 % (45-73); Platelet Count 185 X10*3/uL (160-400); Red Blood Count 2.93 X10*6/uL (4.20-5.50); Red Cell Distribution Width 15.3 % (11.0-16.0); SCAN SMEAR FLAG 1; White Blood Count 21.8 X10*3/uL (4.8-10.8)
[2023-08-26 05:12] LABS: Venous Blood Gas Refer to POC result
[2023-08-26 05:23] LABS: Alanine Aminotransferase 43 U/L (0-31); Albumin Level 3.7 g/dL (3.5-5.0); Alkaline Phosphatase 234 U/L (39-117); Anion Gap 23 (12-20); Aspartate Amino Transferase 66 U/L (5-31); Bilirubin Total 0.7 mg/dL (0.0-1.0); Blood Urea Nitrogen 96 mg/dL (9-16); Calcium 8.1 mg/dL (8.4-10.2); Carbon Dioxide 18 mmol/L (22-29); Chloride 96 mmol/L (96-108); Estimated Glomerular Filt Rate 8; Glucose Random 95 mg/dL (60-115); Magnesium 2.6 mg/dL (1.6-2.6); Phosphorus 7.1 mg/dL (2.7-4.5); Potassium 4.4 mmol/L (3.3-5.1); Sodium 133 mmol/L (135-145); Total Protein 6.8 g/dL (6.5-8.0)
[2023-08-26] MEDS: Albumin Human 25 % 100 ML IV (05:26)
[2023-08-26 05:32] LABS: SLIDE REVIEW VERIFIED
[2023-08-26] MEDS: Artificial Tears 15 ML DROPS 2 DROP EYE-BOTH (07:40)
[2023-08-26] MEDS: Chlorhexidine Gluc Oral Rinse 15 ML MOUTHWASH BUCCAL ×3 (07:53→22:14)
[2023-08-26] MEDS: propofoL 1,000 MG/100 ML VIAL 18.23 MG IVCONT ×3 (08:00→21:20)
[2023-08-26] MEDS: cefTRIAXone sodium 2 GM in 0.9 % Sodium Chloride 50 ML IV (08:01)
--- NOTE | 2023-08-26 09:01 | P.PNCC_ITS ---
Subjective Subjective Date of Service: 08/26/23 Interval History: 73-year-old lady with underlying history of sarcoidosis, rheumatoid arthritis, MGUS, emphysema admitted on 08/18/2023 with septic shock secondary to streptococcal pneumonia requiring pressor support and intubation, further complicated by acute renal failure now requiring hemodialysis support and Poor arousal with sedation vacation, likely secondary to uremic encephalopathy. No events overnight. Critical Care Time (minutes): 60 Physical Exam 2 Vital Signs: Vital Signs: Last Vital Signs Temp 99.0 F 08/26/23 08:00 Pulse 82 08/26/23 08:19 Resp 18 08/26/23 08:19 BP 125/62 08/26/23 08:00 Pulse Ox 94 08/26/23 08:00 O2 Del Method Mechanical Ventil ation 08/26/23 08:00 O2 Flow Rate 55 08/20/23 18:00 FiO2 30 08/26/23 08:00 BMI result Body Mass Index 34.9 Const: General: no acute distress and other ( Sedated on the vent) Eyes: Sclerae: sclerae normal EOM: EOMs intact bilaterally Neck: Neck: Yes no lymphadenopathy, Yes trachea midline and Yes supple Resp: Auscultation: crackles ( mild bilateral) Cardio: Rate: regular rate Rhythm: regular rhythm Heart sounds: no gallops, no murmurs and no rubs GI: Palpation (GI): Soft to palpation and Other GI palpation findings present ( Nontender) Auscultation: normal bowel sounds Extrem: General: No clubbing, No cyanosis and Yes edema ( trace bilateral) Objective Data Labs 08/26/23 04:39 08/26/23 04:39 Labs: Laboratory Results - last 24 hr 08/21/23 08/21/23 08/22/23 13:31 13:56 07:05 WBC RBC Hgb Hct MCV MCH MCHC RDW Plt Count MPV Immature Gran % (Auto) Neut % (Auto) Lymph % (Auto) [place] % (Auto) Eos % (Auto) Baso % (Auto) Lymph # (Auto) [place] # (Auto) Eos # (Auto) Baso # (Auto) Abs Immat Gran (auto) Absolute Neuts (auto) Absolute Nucleated RBC Nucleated RBC % (auto) Smear Tech's Comments Hold Purple Top VBG pH VBG pCO2 VBG pO2 VBG HCO3 VBG O2 Saturation VBG Base Excess Sodium Potassium Chloride Carbon Dioxide Anion Gap BUN Creatinine Estim Creat Clear Calc Estimated GFR POC Glucose Random Glucose Calcium Phosphorus Magnesium Total Bilirubin AST ALT Alkaline Phosphatase Total Protein Albumin Abnorm Protein Band 2 TNP TNP Abnorm Protein Band 3 TNP TNP Angiotensin Convert Enz 10 IgG Total 1145 IgA Total 18 L IgM 15 L [place]/Lambda Ratio 10.59 H DARIA Interpretation SEE NOTE Proteinase 3 (PR3) Ab <1.0 <1.0 Myeloperoxidase Ab <1.0 <1.0 Glomerular Base Memb Ab <1.0 [place] Light Chain Anal 339 Lambda Light Chain Anal 32 L Hep Bs Antigen Hep Bs Antibody Hep B Core Total Ab 08/25/23 08/25/23 08/25/23 11:44 13:42 15:10 WBC RBC Hgb Hct MCV MCH MCHC RDW Plt Count MPV Immature Gran % (Auto) Neut % (Auto) Lymph % (Auto) [place] % (Auto) Eos % (Auto) Baso % (Auto) Lymph # (Auto) [place] # (Auto) Eos # (Auto) Baso # (Auto) Abs Immat Gran (auto) Absolute Neuts (auto) Absolute Nucleated RBC Nucleated RBC % (auto) Smear Tech's Comments Hold Purple Top VBG pH VBG pCO2 VBG pO2 VBG HCO3 VBG O2 Saturation VBG Base Excess Sodium 133 L Potassium 4.6 D Chloride 97 Carbon Dioxide 23 Anion Gap 18 BUN 77 H Creatinine 4.65 H* Estim Creat Clear Calc 12.8 Estimated GFR 9 POC Glucose 94 Random Glucose 113 Calcium 8.2 L D Phosphorus Magnesium Total Bilirubin AST ALT Alkaline Phosphatase Total Protein Albumin Abnorm Protein Band 2 Abnorm Protein Band 3 Angiotensin Convert Enz IgG Total IgA Total IgM [place]/Lambda Ratio DARIA Interpretation Proteinase 3 (PR3) Ab Myeloperoxidase Ab Glomerular Base Memb Ab [place] Light Chain Anal Lambda Light Chain Anal Hep Bs Antigen Negative Hep Bs Antibody NONREACTIVE Hep B Core Total Ab Nonreactive 08/25/23 08/25/23 08/26/23 17:34 23:05 04:39 WBC 21.8 H RBC Hgb Hct MCV MCH MCHC RDW Plt Count MPV Immature Gran % (Auto) Neut % (Auto) Lymph % (Auto) [place] % (Auto) Eos % (Auto) Baso % (Auto) Lymph # (Auto) [place] # (Auto) Eos # (Auto) Baso # (Auto) Abs Immat Gran (auto) Absolute Neuts (auto) Absolute Nucleated RBC Nucleated RBC % (auto) Smear Tech's Comments Hold Purple Top VBG pH VBG pCO2 VBG pO2 VBG HCO3 VBG O2 Saturation VBG Base Excess Sodium Potassium Chloride Carbon Dioxide Anion Gap BUN Creatinine Estim Creat Clear Calc Estimated GFR POC Glucose 94 77 Random Glucose Calcium Phosphorus Magnesium Total Bilirubin AST ALT Alkaline Phosphatase Total Protein Albumin Abnorm Protein Band 2 Abnorm Protein Band 3 Angiotensin Convert Enz IgG Total IgA Total IgM [place]/Lambda Ratio DARIA Interpretation Proteinase 3 (PR3) Ab Myeloperoxidase Ab Glomerular Base Memb Ab [place] Light Chain Anal Lambda Light Chain Anal Hep Bs Antigen Hep Bs Antibody Hep B Core Total Ab 08/26/23 08/26/23 08/26/23 04:39 04:39 04:39 WBC Cancelled RBC 2.93 L Cancelled Hgb 8.8 L Cancelled Hct 26.3 L MCV MCH MCHC RDW Plt Count MPV Immature Gran % (Auto) Neut % (Auto) Lymph % (Auto) [place] % (Auto) Eos % (Auto) Baso % (Auto) Lymph # (Auto) [place] # (Auto) Eos # (Auto) Baso # (Auto) Abs Immat Gran (auto) Absolute Neuts (auto) Absolute Nucleated RBC Nucleated RBC % (auto) Smear Tech's Comments Hold Purple Top VBG pH VBG pCO2 VBG pO2 VBG HCO3 VBG O2 Saturation VBG Base Excess Sodium Potassium Chloride Carbon Dioxide Anion Gap BUN Creatinine Estim Creat Clear Calc Estimated GFR POC Glucose Random Glucose Calcium Phosphorus Magnesium Total Bilirubin AST ALT Alkaline Phosphatase Total Protein Albumin Abnorm Protein Band 2 Abnorm Protein Band 3 Angiotensin Convert Enz IgG Total IgA Total IgM [place]/Lambda Ratio DARIA Interpretation Proteinase 3 (PR3) Ab Myeloperoxidase Ab Glomerular Base Memb Ab [place] Light Chain Anal Lambda Light Chain Anal Hep Bs Antigen Hep Bs Antibody Hep B Core Total Ab 08/26/23 08/26/23 08/26/23 04:39 04:39 04:39 WBC RBC Hgb Hct Cancelled MCV 89.8 Cancelled MCH 30.0 Cancelled MCHC 33.5 RDW Plt Count MPV Immature Gran % (Auto) Neut % (Auto) Lymph % (Auto) [place] % (Auto) Eos % (Auto) Baso % (Auto) Lymph # (Auto) [place] # (Auto) Eos # (Auto) Baso # (Auto) Abs Immat Gran (auto) Absolute Neuts (auto) Absolute Nucleated RBC Nucleated RBC % (auto) Smear Tech's Comments Hold Purple Top VBG pH VBG pCO2 VBG pO2 VBG HCO3 VBG O2 Saturation VBG Base Excess Sodium Potassium Chloride Carbon Dioxide Anion Gap BUN Creatinine Estim Creat Clear Calc Estimated GFR POC Glucose Random Glucose Calcium Phosphorus Magnesium Total Bilirubin AST ALT Alkaline Phosphatase Total Protein Albumin Abnorm Protein Band 2 Abnorm Protein Band 3 Angiotensin Convert Enz IgG Total IgA Total IgM [place]/Lambda Ratio DARIA Interpretation Proteinase 3 (PR3) Ab Myeloperoxidase Ab Glomerular Base Memb Ab [place] Light Chain Anal Lambda Light Chain Anal Hep Bs Antigen Hep Bs Antibody Hep B Core Total Ab 08/26/23 08/26/23 08/26/23 04:39 04:39 04:39 WBC RBC Hgb Hct MCV MCH MCHC Cancelled RDW 15.3 Cancelled Plt Count 185 D Cancelled MPV 12.9 H Immature Gran % (Auto) Neut % (Auto) Lymph % (Auto) [place] % (Auto) Eos % (Auto) Baso % (Auto) Lymph # (Auto) [place] # (Auto) Eos # (Auto) Baso # (Auto) Abs Immat Gran (auto) Absolute Neuts (auto) Absolute Nucleated RBC Nucleated RBC % (auto) Smear Tech's Comments Hold Purple Top VBG pH VBG pCO2 VBG pO2 VBG HCO3 VBG O2 Saturation VBG Base Excess Sodium Potassium Chloride Carbon Dioxide Anion Gap BUN Creatinine Estim Creat Clear Calc Estimated GFR POC Glucose Random Glucose Calcium Phosphorus Magnesium Total Bilirubin AST ALT Alkaline Phosphatase Total Protein Albumin Abnorm Protein Band 2 Abnorm Protein Band 3 Angiotensin Convert Enz IgG Total IgA Total IgM [place]/Lambda Ratio DARIA Interpretation Proteinase 3 (PR3) Ab Myeloperoxidase Ab Glomerular Base Memb Ab [place] Light Chain Anal Lambda Light Chain Anal Hep Bs Antigen Hep Bs Antibody Hep B Core Total Ab 08/26/23 08/26/23 08/26/23 04:39 04:39 04:39 WBC RBC Hgb Hct MCV MCH MCHC RDW Plt Count MPV Cancelled Immature Gran % (Auto) 3.5 H Cancelled Neut % (Auto) 80.5 H Cancelled Lymph % (Auto) 4.3 L [place] % (Auto) Eos % (Auto) Baso % (Auto) Lymph # (Auto) [place] # (Auto) Eos # (Auto) Baso # (Auto) Abs Immat Gran (auto) Absolute Neuts (auto) Absolute Nucleated RBC Nucleated RBC % (auto) Smear Tech's Comments Hold Purple Top VBG pH VBG pCO2 VBG pO2 VBG HCO3 VBG O2 Saturation VBG Base Excess Sodium Potassium Chloride Carbon Dioxide Anion Gap BUN Creatinine Estim Creat Clear Calc Estimated GFR POC Glucose Random Glucose Calcium Phosphorus Magnesium Total Bilirubin AST ALT Alkaline Phosphatase Total Protein Albumin Abnorm Protein Band 2 Abnorm Protein Band 3 Angiotensin Convert Enz IgG Total IgA Total IgM [place]/Lambda Ratio DARIA Interpretation Proteinase 3 (PR3) Ab Myeloperoxidase Ab Glomerular Base Memb Ab [place] Light Chain Anal Lambda Light Chain Anal Hep Bs Antigen Hep Bs Antibody Hep B Core Total Ab 08/26/23 08/26/23 08/26/23 04:39 04:39 04:39 WBC RBC Hgb Hct MCV MCH MCHC RDW Plt Count MPV Immature Gran % (Auto) Neut % (Auto) Lymph % (Auto) Cancelled [place] % (Auto) 11.1 H Cancelled Eos % (Auto) 0.3 Cancelled Baso % (Auto) 0.3 Lymph # (Auto) [place] # (Auto) Eos # (Auto) Baso # (Auto) Abs Immat Gran (auto) Absolute Neuts (auto) Absolute Nucleated RBC Nucleated RBC % (auto) Smear Tech's Comments Hold Purple Top VBG pH VBG pCO2 VBG pO2 VBG HCO3 VBG O2 Saturation VBG Base Excess Sodium Potassium Chloride Carbon Dioxide Anion Gap BUN Creatinine Estim Creat Clear Calc Estimated GFR POC Glucose Random Glucose Calcium Phosphorus Magnesium Total Bilirubin AST ALT Alkaline Phosphatase Total Protein Albumin Abnorm Protein Band 2 Abnorm Protein Band 3 Angiotensin Convert Enz IgG Total IgA Total IgM [place]/Lambda Ratio DARIA Interpretation Proteinase 3 (PR3) Ab Myeloperoxidase Ab Glomerular Base Memb Ab [place] Light Chain Anal Lambda Light Chain Anal Hep Bs Antigen Hep Bs Antibody Hep B Core Total Ab 08/26/23 08/26/23 08/26/23 04:39 04:39 04:39 WBC RBC Hgb Hct MCV MCH MCHC RDW Plt Count MPV Immature Gran % (Auto) Neut % (Auto) Lymph % (Auto) [place] % (Auto) Eos % (Auto) Baso % (Auto) Cancelled Lymph # (Auto) 0.9 L Cancelled [place] # (Auto) 2.4 H Cancelled Eos # (Auto) 0.1 Baso # (Auto) Abs Immat Gran (auto) Absolute Neuts (auto) Absolute Nucleated RBC Nucleated RBC % (auto) Smear Tech's Comments Hold Purple Top VBG pH VBG pCO2 VBG pO2 VBG HCO3 VBG O2 Saturation VBG Base Excess Sodium Potassium Chloride Carbon Dioxide Anion Gap BUN Creatinine Estim Creat Clear Calc Estimated GFR POC Glucose Random Glucose Calcium Phosphorus Magnesium Total Bilirubin AST ALT Alkaline Phosphatase Total Protein Albumin Abnorm Protein Band 2 Abnorm Protein Band 3 Angiotensin Convert Enz IgG Total IgA Total IgM [place]/Lambda Ratio DARIA Interpretation Proteinase 3 (PR3) Ab Myeloperoxidase Ab Glomerular Base Memb Ab [place] Light Chain Anal Lambda Light Chain Anal Hep Bs Antigen Hep Bs Antibody Hep B Core Total Ab 08/26/23 08/26/23 08/26/23 04:39 04:39 04:39 WBC RBC Hgb Hct MCV MCH MCHC RDW Plt Count MPV Immature Gran % (Auto) Neut % (Auto) Lymph % (Auto) [place] % (Auto) Eos % (Auto) Baso % (Auto) Lymph # (Auto) [place] # (Auto) Eos # (Auto) Cancelled Baso # (Auto) 0.1 Cancelled Abs Immat Gran (auto) 0.77 H Cancelled Absolute Neuts (auto) 17.6 H Absolute Nucleated RBC Nucleated RBC % (auto) Smear Tech's Comments Hold Purple Top VBG pH VBG pCO2 VBG pO2 VBG HCO3 VBG O2 Saturation VBG Base Excess Sodium Potassium Chloride Carbon Dioxide Anion Gap BUN Creatinine Estim Creat Clear Calc Estimated GFR POC Glucose Random Glucose Calcium Phosphorus Magnesium Total Bilirubin AST ALT Alkaline Phosphatase Total Protein Albumin Abnorm Protein Band 2 Abnorm Protein Band 3 Angiotensin Convert Enz IgG Total IgA Total IgM [place]/Lambda Ratio DARIA Interpretation Proteinase 3 (PR3) Ab Myeloperoxidase Ab Glomerular Base Memb Ab [place] Light Chain Anal Lambda Light Chain Anal Hep Bs Antigen Hep Bs Antibody Hep B Core Total Ab 08/26/23 08/26/23 08/26/23 04:39 04:39 04:39 WBC RBC Hgb Hct MCV MCH MCHC RDW Plt Count MPV Immature Gran % (Auto) Neut % (Auto) Lymph % (Auto) [place] % (Auto) Eos % (Auto) Baso % (Auto) Lymph # (Auto) [place] # (Auto) Eos # (Auto) Baso # (Auto) Abs Immat Gran (auto) Absolute Neuts (auto) Cancelled Absolute Nucleated RBC 0.430 H Cancelled Nucleated RBC % (auto) 2.0 H Cancelled Smear Tech's Comments VERIFIED Hold Purple Top SEE NOTE VBG pH VBG pCO2 VBG pO2 VBG HCO3 VBG O2 Saturation VBG Base Excess Sodium 133 L Potassium 4.4 Chloride 96 Carbon Dioxide 18 L Anion Gap 23 H BUN 96 H Creatinine 5.44 H* Estim Creat Clear Calc 11.0 Estimated GFR 8 POC Glucose Random Glucose 95 Calcium 8.1 L Phosphorus 7.1 H Magnesium 2.6 Total Bilirubin 0.7 AST 66 H ALT 43 H Alkaline Phosphatase 234 H Total Protein 6.8 Albumin 3.7 Abnorm Protein Band 2 Abnorm Protein Band 3 Angiotensin Convert Enz IgG Total IgA Total IgM [place]/Lambda Ratio DARIA Interpretation Proteinase 3 (PR3) Ab Myeloperoxidase Ab Glomerular Base Memb Ab [place] Light Chain Anal Lambda Light Chain Anal Hep Bs Antigen Hep Bs Antibody Hep B Core Total Ab 08/26/23 04:41 WBC RBC Hgb Hct MCV MCH MCHC RDW Plt Count MPV Immature Gran % (Auto) Neut % (Auto) Lymph % (Auto) [place] % (Auto) Eos % (Auto) Baso % (Auto) Lymph # (Auto) [place] # (Auto) Eos # (Auto) Baso # (Auto) Abs Immat Gran (auto) Absolute Neuts (auto) Absolute Nucleated RBC Nucleated RBC % (auto) Smear Tech's Comments Hold Purple Top VBG pH 7.38 VBG pCO2 32 VBG pO2 53 VBG HCO3 19 L VBG O2 Saturation 83.0 VBG Base Excess -4.6 Sodium Potassium Chloride Carbon Dioxide Anion Gap BUN Creatinine Estim Creat Clear Calc Estimated GFR POC Glucose Random Glucose Calcium Phosphorus Magnesium Total Bilirubin AST ALT Alkaline Phosphatase Total Protein Albumin Abnorm Protein Band 2 Abnorm Protein Band 3 Angiotensin Convert Enz IgG Total IgA Total IgM [place]/Lambda Ratio DARIA Interpretation Proteinase 3 (PR3) Ab Myeloperoxidase Ab Glomerular Base Memb Ab [place] Light Chain Anal Lambda Light Chain Anal Hep Bs Antigen Hep Bs Antibody Hep B Core Total Ab Microbiology Microbiology Results: Microbiology 08/18/23 21:45 Blood - Venous Blood Culture - Final Streptococcus pneumoniae 08/18/23 20:17 Blood - Venous Blood Culture - Final Streptococcus pneumoniae Progress Note: A&P Assessment and plan (1) Streptococcal pneumonia: Status: Acute (2) Septic shock due to streptococcal infection: Status: Acute (3) Acute hypoxic respiratory failure: Status: Acute (4) BRE (acute kidney injury): Status: Acute (5) Rheumatoid arthritis involving multiple joints: Status: Acute (6) Sarcoidosis: Status: Acute (7) MGUS (monoclonal gammopathy of unknown significance): Status: Acute Plan Assessment: 73-year-old lady admitted with septic shock secondary to streptococcal pneumonia further complicated by acute renal failure requiring hemodialysis support and septic encephalopathy Plan: Neuro: Poor arousal with sedation vacation likely secondary to septic encephalopathy, also with uremic component. Continue to monitor clinically. Cardiac: Septic shock, resolved, titrated off pressors. Pulmonary: Acute hypoxic respiratory failure requiring ventilatory support secondary to streptococcal pneumonia on the background of sarcoidosis Renal: Acute renal failure on the background of septic shock, likely ATN. Nephrology service care appreciated. Continue hemodialysis support. Underlying MGUS. Endo: No acute issues. GI: No acute issues. ID: Streptococcal pneumonia, continue ceftriaxone. Heme/Onc: No acute issues. Psych: No acute issues. Miscellaneous: No acute issues. Prophylaxis: Heparin, ppi Diet: Tube feeds Critical care time spent: 60 minutes Quality Stroke Does the patient have a stroke diagnosis?: No VTE Prior VTE?: No VTE Risk Level:: Medical - moderate - high VTE Device Contraindication: N/A - Device Ordered VTE Drug Contraindication: Treatment Not Tolerated
--- NOTE | 2023-08-26 10:11 | P.CDIM_ITS ---
PROVIDER RESPONSE TEXT: To clarify, the appropriate diagnosis supported by the clinical indicators: Hypomagnesemia, resolved QUERY TEXT: PHYSICIAN'S DOCUMENTATION REQUEST Date of Query: 08/26/2023 08:17 AM EST Patient Name: Tasha Nieto Admit Date: 08/19/2023 Dear Wilberto Hawkins, A review of the medical record indicates additional documentation may be needed. Please review below and update the documentation accordingly. Clinical Indicators: LAB FINDINGS: magnesium 1.2 L 1.5 L IV magnesium sulfate Based on the above, is there a diagnosis that correlates with these lab findings: Hypomagnesemia, resolved Labs indicate a diagnosis of (please specify) Other (explain) Clinically unable to determine (explain) Thank you, Jennifer Kendrick, CCS, CDIS Use of terms such as suspected, likely, concern for, or probable (associated with a specific diagnosi s that is being evaluated, monitored, or treated as if it exists) are acceptable and can be coded in the inpatient se tting, when documented at the time of discharge. Please use your independent medical judgment in providing your response. THIS QUERY IS PART OF THE PERMANENT MEDICAL RECORD
--- NOTE | 2023-08-26 10:27 | MHC.CLN ---
F/U DISCUSSED WITH MD AT ROUNDS PT TOLERATING TRICKLE FEED NEPRO AT 20ML/HR PROVIDES 864KCALS (1345KCALS WITH [id number]/KG), 39G PROTEIN, 349ML FREE WATER FROM FORMULA RECOMMEND INCREASING NEPRO TO MAX GOAL RATE 25 ML PER HOUR WITH 120 ML FREE WATER FLUSHES Q 6 HOURS TO PROVIDE 1080 KCALS (1561 KCALS WITH SEDATION, 26.4 KCALS/KG IBW); 49 G PROTEIN (.82 G/KG IBW); 916 ML FREE WATER FROM FORMULA AND FLUSH (15.5 ML/KG IBW) MONITOR TOLERANCE, RESIDUALS AND LYTES ORDER IN EXPANSE; PROVIDER AWARE
--- NOTE | 2023-08-26 10:56 | PM.PNNEP ---
Subjective Subjective Date of Service: 08/26/23 Interval history: Seen and examined, events noted Physical Exam Vital Signs: Vital Signs: Last Vital Signs Temp 99.0 F 08/26/23 10:00 Pulse 90 08/26/23 10:00 Resp 22 H 08/26/23 10:00 BP 128/59 L 08/26/23 10:00 Pulse Ox 93 08/26/23 10:00 O2 Del Method Mechanical Ventil ation 08/26/23 10:00 O2 Flow Rate 55 08/20/23 18:00 FiO2 30 08/26/23 10:00 BMI result Body Mass Index 34.9 Const: Other: intubated, sedated Resp: Other: on ventilator Cardio: Rate: tachycardic Rhythm: regular rhythm GI: Inspection: Yes normal to inspection and No distended Palpation (GI): not firm, nontender, no guarding and not rigid Neuro: Other: intubated, sedated Extrem: Other: non-pitting edema throughout Objective Data Labs 08/26/23 04:39 08/26/23 04:39 Labs: Laboratory Results - last 24 hr 08/21/23 08/21/23 08/22/23 13:31 13:56 07:05 WBC RBC Hgb Hct MCV MCH MCHC RDW Plt Count MPV Immature Gran % (Auto) Neut % (Auto) Lymph % (Auto) [place] % (Auto) Eos % (Auto) Baso % (Auto) Lymph # (Auto) [place] # (Auto) Eos # (Auto) Baso # (Auto) Abs Immat Gran (auto) Absolute Neuts (auto) Absolute Nucleated RBC Nucleated RBC % (auto) Smear Tech's Comments Hold Purple Top VBG pH VBG pCO2 VBG pO2 VBG HCO3 VBG O2 Saturation VBG Base Excess Sodium Potassium Chloride Carbon Dioxide Anion Gap BUN Creatinine Estim Creat Clear Calc Estimated GFR POC Glucose Random Glucose Calcium Phosphorus Magnesium Total Bilirubin AST ALT Alkaline Phosphatase Total Protein Albumin Abnorm Protein Band 2 TNP TNP Abnorm Protein Band 3 TNP TNP Angiotensin Convert Enz 10 [place]/Lambda Ratio 10.59 H Proteinase 3 (PR3) Ab <1.0 <1.0 Myeloperoxidase Ab <1.0 <1.0 Glomerular Base Memb Ab <1.0 Zayante Light Chain Anal 339 Lambda Light Chain Anal 32 L Hep Bs Antigen Hep Bs Antibody Hep B Core Total Ab 08/25/23 08/25/2308/25/23 11:44 13:42 15:10 WBC RBC Hgb Hct MCV MCH MCHC RDW Plt Count MPV Immature Gran % (Auto) Neut % (Auto) Lymph % (Auto) [place] % (Auto) Eos % (Auto) Baso % (Auto) Lymph # (Auto) [place] # (Auto) Eos # (Auto) Baso # (Auto) Abs Immat Gran (auto) Absolute Neuts (auto) Absolute Nucleated RBC Nucleated RBC % (auto) Smear Tech's Comments Hold Purple Top VBG pH VBG pCO2 VBG pO2 VBG HCO3 VBG O2 Saturation VBG Base Excess Sodium 133 L Potassium 4.6 D Chloride 97 Carbon Dioxide 23 Anion Gap 18 BUN 77 H Creatinine 4.65 H* Estim Creat Clear Calc 12.8 Estimated GFR 9 POC Glucose 94 Random Glucose 113 Calcium 8.2 L D Phosphorus Magnesium Total Bilirubin AST ALT Alkaline Phosphatase Total Protein Albumin Abnorm Protein Band 2 Abnorm Protein Band 3 Angiotensin Convert Enz [place]/Lambda Ratio Proteinase 3 (PR3) Ab Myeloperoxidase Ab Glomerular Base Memb Ab [place] Light Chain Anal Lambda Light Chain Anal Hep Bs Antigen Negative Hep Bs Antibody NONREACTIVE Hep B Core Total Ab Nonreactive 08/25/23 08/25/23 08/26/23 17:34 23:05 04:39 WBC 21.8 H RBC Hgb Hct MCV MCH MCHC RDW Plt Count MPV Immature Gran % (Auto) Neut % (Auto) Lymph % (Auto) [place] % (Auto) Eos % (Auto) Baso % (Auto) Lymph # (Auto) [place] # (Auto) Eos # (Auto) Baso # (Auto) Abs Immat Gran (auto) Absolute Neuts (auto) Absolute Nucleated RBC Nucleated RBC % (auto) Smear Tech's Comments Hold Purple Top VBG pH VBG pCO2 VBG pO2 VBG HCO3 VBG O2 Saturation VBG Base Excess Sodium Potassium Chloride Carbon Dioxide Anion Gap BUN Creatinine Estim Creat Clear Calc Estimated GFR POC Glucose 94 77 Random Glucose Calcium Phosphorus Magnesium Total Bilirubin AST ALT Alkaline Phosphatase Total Protein Albumin Abnorm Protein Band 2 Abnorm Protein Band 3 Angiotensin Convert Enz [place]/Lambda Ratio Proteinase 3 (PR3) Ab Myeloperoxidase Ab Glomerular Base Memb Ab [place] Light Chain Anal Lambda Light Chain Anal Hep Bs Antigen Hep Bs Antibody Hep B Core Total Ab 08/26/23 08/26/23 08/26/23 04:39 04:39 04:39 WBC Cancelled RBC 2.93 L Cancelled Hgb 8.8 L Cancelled Hct 26.3 L MCV MCH MCHC RDW Plt Count MPV Immature Gran % (Auto) Neut % (Auto) Lymph % (Auto) [place] % (Auto) Eos % (Auto) Baso % (Auto) Lymph # (Auto) [place] # (Auto) Eos # (Auto) Baso # (Auto) Abs Immat Gran (auto) Absolute Neuts (auto) Absolute Nucleated RBC Nucleated RBC % (auto) Smear Tech's Comments Hold Purple Top VBG pH VBG pCO2 VBG pO2 VBG HCO3 VBG O2 Saturation VBG Base Excess Sodium Potassium Chloride Carbon Dioxide Anion Gap BUN Creatinine Estim Creat Clear Calc Estimated GFR POC Glucose Random Glucose Calcium Phosphorus Magnesium Total Bilirubin AST ALT Alkaline Phosphatase Total Protein Albumin Abnorm Protein Band 2 Abnorm Protein Band 3 Angiotensin Convert Enz [place]/Lambda Ratio Proteinase 3 (PR3) Ab Myeloperoxidase Ab Glomerular Base Memb Ab [place] Light Chain Anal Lambda Light Chain Anal Hep Bs Antigen Hep Bs Antibody Hep B Core Total Ab 08/26/23 08/26/23 08/26/23 04:39 04:39 04:39 WBC RBC Hgb Hct Cancelled MCV 89.8 Cancelled MCH 30.0 Cancelled MCHC 33.5 RDW Plt Count MPV Immature Gran % (Auto) Neut % (Auto) Lymph % (Auto) [place] % (Auto) Eos % (Auto) Baso % (Auto) Lymph # (Auto) [place] # (Auto) Eos # (Auto) Baso # (Auto) Abs Immat Gran (auto) Absolute Neuts (auto) Absolute Nucleated RBC Nucleated RBC % (auto) Smear Tech's Comments Hold Purple Top VBG pH VBG pCO2 VBG pO2 VBG HCO3 VBG O2 Saturation VBG Base Excess Sodium Potassium Chloride Carbon Dioxide Anion Gap BUN Creatinine Estim Creat Clear Calc Estimated GFR POC Glucose Random Glucose Calcium Phosphorus Magnesium Total Bilirubin AST ALT Alkaline Phosphatase Total Protein Albumin Abnorm Protein Band 2 Abnorm Protein Band 3 Angiotensin Convert Enz [place]/Lambda Ratio Proteinase 3 (PR3) Ab Myeloperoxidase Ab Glomerular Base Memb Ab [place] Light Chain Anal Lambda Light Chain Anal Hep Bs Antigen Hep Bs Antibody Hep B Core Total Ab 08/26/23 08/26/23 08/26/23 04:39 04:39 04:39 WBC RBC Hgb Hct MCV MCH MCHC Cancelled RDW 15.3 Cancelled Plt Count 185 D Cancelled MPV 12.9 H Immature Gran % (Auto) Neut % (Auto) Lymph % (Auto) [place] % (Auto) Eos % (Auto) Baso % (Auto) Lymph # (Auto) [place] # (Auto) Eos # (Auto) Baso # (Auto) Abs Immat Gran (auto) Absolute Neuts (auto) Absolute Nucleated RBC Nucleated RBC % (auto) Smear Tech's Comments Hold Purple Top VBG pH VBG pCO2 VBG pO2 VBG HCO3 VBG O2 Saturation VBG Base Excess Sodium Potassium Chloride Carbon Dioxide Anion Gap BUN Creatinine Estim Creat Clear Calc Estimated GFR POC Glucose Random Glucose Calcium Phosphorus Magnesium Total Bilirubin AST ALT Alkaline Phosphatase Total Protein Albumin Abnorm Protein Band 2 Abnorm Protein Band 3 Angiotensin Convert Enz [place]/Lambda Ratio Proteinase 3 (PR3) Ab Myeloperoxidase Ab Glomerular Base Memb Ab [place] Light Chain Anal Lambda Light Chain Anal Hep Bs Antigen Hep Bs Antibody Hep B Core Total Ab 08/26/23 08/26/23 08/26/23 04:39 04:39 04:39 WBC RBC Hgb Hct MCV MCH MCHC RDW Plt Count MPV Cancelled Immature Gran % (Auto) 3.5 H Cancelled Neut % (Auto) 80.5 H Cancelled Lymph % (Auto) 4.3 L [place] % (Auto) Eos % (Auto) Baso % (Auto) Lymph # (Auto) [place] # (Auto) Eos # (Auto) Baso # (Auto) Abs Immat Gran (auto) Absolute Neuts (auto) Absolute Nucleated RBC Nucleated RBC % (auto) Smear Tech's Comments Hold Purple Top VBG pH VBG pCO2 VBG pO2 VBG HCO3 VBG O2 Saturation VBG Base Excess Sodium Potassium Chloride Carbon Dioxide Anion Gap BUN Creatinine Estim Creat Clear Calc Estimated GFR POC Glucose Random Glucose Calcium Phosphorus Magnesium Total Bilirubin AST ALT Alkaline Phosphatase Total Protein Albumin Abnorm Protein Band 2 Abnorm Protein Band 3 Angiotensin Convert Enz [place]/Lambda Ratio Proteinase 3 (PR3) Ab Myeloperoxidase Ab Glomerular Base Memb Ab [place] Light Chain Anal Lambda Light Chain Anal Hep Bs Antigen Hep Bs Antibody Hep B Core Total Ab 08/26/23 08/26/23 08/26/23 04:39 04:39 04:39 WBC RBC Hgb Hct MCV MCH MCHC RDW Plt Count MPV Immature Gran % (Auto) Neut % (Auto) Lymph % (Auto) Cancelled [place] % (Auto) 11.1 H Cancelled Eos % (Auto) 0.3 Cancelled Baso % (Auto) 0.3 Lymph # (Auto) [place] # (Auto) Eos # (Auto) Baso # (Auto) Abs Immat Gran (auto) Absolute Neuts (auto) Absolute Nucleated RBC Nucleated RBC % (auto) Smear Tech's Comments Hold Purple Top VBG pH VBG pCO2 VBG pO2 VBG HCO3 VBG O2 Saturation VBG Base Excess Sodium Potassium Chloride Carbon Dioxide Anion Gap BUN Creatinine Estim Creat Clear Calc Estimated GFR POC Glucose Random Glucose Calcium Phosphorus Magnesium Total Bilirubin AST ALT Alkaline Phosphatase Total Protein Albumin Abnorm Protein Band 2 Abnorm Protein Band 3 Angiotensin Convert Enz [place]/Lambda Ratio Proteinase 3 (PR3) Ab Myeloperoxidase Ab Glomerular Base Memb Ab [place] Light Chain Anal Lambda Light Chain Anal Hep Bs Antigen Hep Bs Antibody Hep B Core Total Ab 08/26/23 08/26/23 08/26/23 04:39 04:39 04:39 WBC RBC Hgb Hct MCV MCH MCHC RDW Plt Count MPV Immature Gran % (Auto) Neut % (Auto) Lymph % (Auto) [place] % (Auto) Eos % (Auto) Baso % (Auto) Cancelled Lymph # (Auto) 0.9 L Cancelled [place] # (Auto) 2.4 H Cancelled Eos # (Auto) 0.1 Baso # (Auto) Abs Immat Gran (auto) Absolute Neuts (auto) Absolute Nucleated RBC Nucleated RBC % (auto) Smear Tech's Comments Hold Purple Top VBG pH VBG pCO2 VBG pO2 VBG HCO3 VBG O2 Saturation VBG Base Excess Sodium Potassium Chloride Carbon Dioxide Anion Gap BUN Creatinine Estim Creat Clear Calc Estimated GFR POC Glucose Random Glucose Calcium Phosphorus Magnesium Total Bilirubin AST ALT Alkaline Phosphatase Total Protein Albumin Abnorm Protein Band 2 Abnorm Protein Band 3 Angiotensin Convert Enz [place]/Lambda Ratio Proteinase 3 (PR3) Ab Myeloperoxidase Ab Glomerular Base Memb Ab [place] Light Chain Anal Lambda Light Chain Anal Hep Bs Antigen Hep Bs Antibody Hep B Core Total Ab 08/26/23 08/26/23 08/26/23 04:39 04:39 04:39 WBC RBC Hgb Hct MCV MCH MCHC RDW Plt Count MPV Immature Gran % (Auto) Neut % (Auto) Lymph % (Auto) [place] % (Auto) Eos % (Auto) Baso % (Auto) Lymph # (Auto) [place] # (Auto) Eos # (Auto) Cancelled Baso # (Auto) 0.1 Cancelled Abs Immat Gran (auto) 0.77 H Cancelled Absolute Neuts (auto) 17.6 H Absolute Nucleated RBC Nucleated RBC % (auto) Smear Tech's Comments Hold Purple Top VBG pH VBG pCO2 VBG pO2 VBG HCO3 VBG O2 Saturation VBG Base Excess Sodium Potassium Chloride Carbon Dioxide Anion Gap BUN Creatinine Estim Creat Clear Calc Estimated GFR POC Glucose Random Glucose Calcium Phosphorus Magnesium Total Bilirubin AST ALT Alkaline Phosphatase Total Protein Albumin Abnorm Protein Band 2 Abnorm Protein Band 3 Angiotensin Convert Enz [place]/Lambda Ratio Proteinase 3 (PR3) Ab Myeloperoxidase Ab Glomerular Base Memb Ab [place] Light Chain Anal Lambda Light Chain Anal Hep Bs Antigen Hep Bs Antibody Hep B Core Total Ab 08/26/23 08/26/23 08/26/23 04:39 04:39 04:39 WBC RBC Hgb Hct MCV MCH MCHC RDW Plt Count MPV Immature Gran % (Auto) Neut % (Auto) Lymph % (Auto) [place] % (Auto) Eos % (Auto) Baso % (Auto) Lymph # (Auto) [place] # (Auto) Eos # (Auto) Baso # (Auto) Abs Immat Gran (auto) Absolute Neuts (auto) Cancelled Absolute Nucleated RBC 0.430 H Cancelled Nucleated RBC % (auto) 2.0 H Cancelled Smear Tech's Comments VERIFIED Hold Purple Top SEE NOTE VBG pH VBG pCO2 VBG pO2 VBG HCO3 VBG O2 Saturation VBG Base Excess Sodium 133 L Potassium 4.4 Chloride 96 Carbon Dioxide 18 L Anion Gap 23 H BUN 96 H Creatinine 5.44 H* Estim Creat Clear Calc 11.0 Estimated GFR 8 POC Glucose Random Glucose 95 Calcium 8.1 L Phosphorus 7.1 H Magnesium 2.6 Total Bilirubin 0.7 AST 66 H ALT 43 H Alkaline Phosphatase 234 H Total Protein 6.8 Albumin 3.7 Abnorm Protein Band 2 Abnorm Protein Band 3 Angiotensin Convert Enz Zay[place]/Lambda Ratio Proteinase 3 (PR3) Ab Myeloperoxidase Ab Glomerular Base Memb Ab [place] Light Chain Anal Lambda Light Chain Anal Hep Bs Antigen Hep Bs Antibody Hep B Core Total Ab 08/26/23 04:41 WBC RBC Hgb Hct MCV MCH MCHC RDW Plt Count MPV Immature Gran % (Auto) Neut % (Auto) Lymph % (Auto) [place] % (Auto) Eos % (Auto) Baso % (Auto) Lymph # (Auto) [place] # (Auto) Eos # (Auto) Baso # (Auto) Abs Immat Gran (auto) Absolute Neuts (auto) Absolute Nucleated RBC Nucleated RBC % (auto) Smear Tech's Comments Hold Purple Top VBG pH 7.38 VBG pCO2 32 VBG pO2 53 VBG HCO3 19 L VBG O2 Saturation 83.0 VBG Base Excess -4.6 Sodium Potassium Chloride Carbon Dioxide Anion Gap BUN Creatinine Estim Creat Clear Calc Estimated GFR POC Glucose Random Glucose Calcium Phosphorus Magnesium Total Bilirubin AST ALT Alkaline Phosphatase Total Protein Albumin Abnorm Protein Band 2 Abnorm Protein Band 3 Angiotensin Convert Enz [place]/Lambda Ratio Proteinase 3 (PR3) Ab Myeloperoxidase Ab Glomerular Base Memb Ab [place] Light Chain Anal Lambda Light Chain Anal Hep Bs Antigen Hep Bs Antibody Hep B Core Total Ab Microbiology Microbiology Results: Microbiology 08/18/23 21:45 Blood - Venous Blood Culture - Final Streptococcus pneumoniae 08/18/23 20:17 Blood - Venous Blood Culture - Final Streptococcus pneumoniae Procedures Date of Service Date of Service: 08/26/23 Assessment & Plan Assessment and plan (1) Septic shock due to Gram positive bacteria: Status: Inactive Plan Ms. 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 Course is complicated by BRE, and volume overload refractory to IV diuresis now requireing HD support Currently on HD and poor flows ( 100-150)--suspect HD line is too short Sero results noted IgGK ( known H/O going back > 1 year) Low C3 and C4: h/o CVDz but also raises quesof IM Cx GN assoc with infetion ( PIGN) anca pending incr PLT makes TMA unlikley Etiology of BRE: most c/w sepsis assoc ATN A) Pre-renal unlikely given the lack of response to Pressors and IVF support B) ATN from sepsis and inflammatory cytokine storm is very likely. ALso patient underwent couple bouts of CT contrast . C) Glomerular disease given sarcoid and RA history is possible and now with low C3 C$ also raises ques of ( PIGN) as well D) AIN is always on the differential E) infectious GN is possible as well. F) Obstruction has been ruled out. REC: HD again today and most likely again tomorrow; track UOP trending up and metabolic; may need to consider pros/cons of kidney Bx next week depending on clinical course and if renal func does not improve need to change temp line or place Pacath given poor flows D/W Dr Hawkins Time Spent With Patient Time: Total time managing care of this patient today ____ minutes. Progress Note: Quality Stroke Does the patient have a stroke diagnosis?: No
[2023-08-26 11:32] LABS: Glucose, Whole Blood 93 mg/dL (60-115)
[2023-08-26 13:34] LABS: ADAMTS13 Inhibitor 0.7 BEU (<0.4)
--- NOTE | 2023-08-26 15:51 | MHC.CM.PN ---
EMR REVIEWED AND PER MD ROUNDS, PT REMAINS INTUBATED AND SEDATED. WILL HAVE HD TODAY. CM WILL CONTINUE TO FOLLOW FOR PLAN.
[2023-08-26 16:42] LABS: Anion Gap 20 (12-20); Blood Urea Nitrogen 96 mg/dL (9-16); Calcium 8.1 mg/dL (8.4-10.2); Carbon Dioxide 19 mmol/L (22-29); Chloride 98 mmol/L (96-108); Creatinine Clr Calc Pharmacy 11.4; Estimated Glomerular Filt Rate 8; Glucose Random 94 mg/dL (60-115); Potassium 4.4 mmol/L (3.3-5.1); Sodium 133 mmol/L (135-145)
[2023-08-26 18:24] LABS: Glucose, Whole Blood 92 mg/dL (60-115)
[2023-08-26] MEDS: Norepinephrine Bitartrate/D5W 8 MG/250 ML PLAST..BAG 13.58 MG IV (21:21)
[2023-08-26 23:59] LABS: Glucose, Whole Blood 90 mg/dL (60-115)
[2023-08-27] VITALS (40 sets, daily range): BP systolic 71–171; BP diastolic 46–73; PULSE 77–105; RESP 20–39; TEMP 35–37.6; O2SAT 94–98; BMI 32.6
[2023-08-27] MEDS: propofoL 1,000 MG/100 ML VIAL 18.23 MG IVCONT ×4 (01:12→20:29)
[2023-08-27] MEDS: Heparin Sodium,Porcine 5,000 UNIT/ML VIAL 5000 UNIT SUBCUT ×2 (01:13→17:51)
[2023-08-27 05:04] LABS: VBG Base Excess -6.4 mmol/L; VBG HCO3 16 mmol/L (22-26); VBG pCO2 26 mmHg; VBG pO2 52 mmHg
[2023-08-27 05:14] LABS: Venous Blood Gas Refer to POC result
[2023-08-27 05:19] LABS: Basophils Absolute Auto 0.1 X10*3/uL (0.0-0.2); Basophils Percent Auto 0.5 % (0-2); Eosinophils Absolute Auto 0.2 X10*3/uL (0.0-0.4); Eosinophils Percent Auto 1.1 % (0-4); Hematocrit 26.4 % (37.0-47.0); Hemoglobin 9.2 g/dl (12.0-16.0); Imm Gran Abs Auto 0.71 X10*3/uL (0.00-0.03); Imm Gran Pct Auto 3.8 % (0.0-0.4); Lymphocytes Absolute Auto 0.9 X10*3/uL (1.2-4.9); Lymphocytes Percent Auto 4.5 % (20-40); MANUAL DIFF FLAG SCAN; Mean Corpuscular HGB Conc 34.8 g/dl (31.0-35.0); Mean Corpuscular Hemoglobin 30.8 pg (27.0-33.0); Mean Corpuscular Volume 88.3 fL (80.0-98.0); Mean Platelet Volume 12.7 fL (9.4-12.3); Monocytes Absolute Auto 1.9 X10*3/uL (0.1-1.2); Monocytes Percent Auto 9.8 % (2-11); Neutrophils Absolute Auto 15.1 x10*3/uL (2.0-8.3); Neutrophils Percent Auto 80.3 % (45-73); Platelet Count 268 X10*3/uL (160-400); Red Blood Count 2.99 X10*6/uL (4.20-5.50); Red Cell Distribution Width 14.7 % (11.0-16.0); SCAN SMEAR FLAG 1; White Blood Count 18.8 X10*3/uL (4.8-10.8)
[2023-08-27] MEDS: propofoL 1,000 MG/100 ML VIAL 24.31 MG IVCONT ×2 (05:24→09:31)
[2023-08-27] MEDS: Omeprazole/Na Bicarb Oral Susp 20 MG/10 ML UD Cup 40 MG PO (05:26)
[2023-08-27 05:36] LABS: Albumin Level 3.4 g/dL (3.5-5.0); Anion Gap 24 (12-20); Blood Urea Nitrogen 117 mg/dL (9-16); Calcium 8.2 mg/dL (8.4-10.2); Carbon Dioxide 17 mmol/L (22-29); Chloride 97 mmol/L (96-108); Creatinine Clr Calc Pharmacy 9.6; Estimated Glomerular Filt Rate 7; Glucose Random 106 mg/dL (60-115); Magnesium 2.6 mg/dL (1.6-2.6); Phosphorus 7.2 mg/dL (2.7-4.5); Potassium 4.4 mmol/L (3.3-5.1); Sodium 134 mmol/L (135-145)
[2023-08-27 05:49] LABS: SLIDE REVIEW VERIFIED
[2023-08-27] MEDS: cefTRIAXone sodium 2 GM in 0.9 % Sodium Chloride 50 ML IV (08:18)
[2023-08-27] MEDS: Chlorhexidine Gluc Oral Rinse 15 ML MOUTHWASH BUCCAL ×3 (08:21→22:05)
--- NOTE | 2023-08-27 09:41 | P.PNCC_ITS ---
Subjective Subjective Date of Service: 08/27/23 Interval History: 73-year-old lady with underlying history of sarcoidosis, rheumatoid arthritis, MGUS, emphysema admitted on 08/18/2023 with septic shock secondary to streptococcal pneumonia requiring pressor support and intubation, further complicated by acute renal failure now requiring hemodialysis support and Poor arousal with sedation vacation, likely secondary to uremic encephalopathy. No events overnight. Critical Care Time (minutes): 60 Physical Exam 2 Vital Signs: Vital Signs: Last Vital Signs Temp 98.6 F 08/27/23 07:00 Pulse 89 08/27/23 09:00 Resp 37 H 08/27/23 09:00 BP 109/47 L 08/27/23 09:00 Pulse Ox 95 08/27/23 09:00 O2 Del Method Mechanical Ventil ation 08/27/23 09:00 O2 Flow Rate 55 08/20/23 18:00 FiO2 30 08/27/23 09:00 BMI result Body Mass Index 32.6 Const: General: no acute distress and other (Sedated on the vent) N utritional Appearance: Edematous Eyes: Sclerae: sclerae normal EOM: EOMs intact bilaterally Neck: Neck: Yes no lymphadenopathy, Yes trachea midline and Yes supple Resp: Effort & Inspection: normal respiratory effort Auscultation: crackles (Bilateral) Cardio: Rate: regular rate Rhythm: regular rhythm Heart sounds: no gallops, no murmurs and no rubs GI: Palpation (GI): Soft to palpation and Other GI palpation findings present ( Nontender) Auscultation: normal bowel sounds Extrem: General: Yes no pedal edema, No clubbing and No cyanosis Objective Data Labs 08/27/23 04:49 08/27/23 04:42 Labs: Laboratory Results - last 24 hr 08/21/23 08/26/23 08/26/23 13:31 11:29 16:10 WBC RBC Hgb Hct MCV MCH MCHC RDW Plt Count MPV Immature Gran % (Auto) Neut % (Auto) Lymph % (Auto) [place] % (Auto) Eos % (Auto) Baso % (Auto) Lymph # (Auto) [place] # (Auto) Eos # (Auto) Baso # (Auto) Abs Immat Gran (auto) Absolute Neuts (auto) Absolute Nucleated RBC Nucleated RBC % (auto) Smear Tech's Comments [id number] Activity Intrp 0.27 (L) [id number] Inhibitor 0.7 H VBG pH VBG pCO2 VBG pO2 VBG HCO3 VBG O2 Saturation VBG Base Excess Sodium 133 L Potassium 4.4 Chloride 98 Carbon Dioxide 19 L Anion Gap 20 BUN 96 H Creatinine 5.19 H* Estim Creat Clear Calc 11.4 Estimated GFR 8 POC Glucose 93 Random Glucose 94 Calcium 8.1 L Phosphorus Magnesium Albumin 08/26/23 08/26/23 08/27/23 18:17 23:52 04:42 WBC RBC Hgb Hct MCV MCH MCHC RDW Plt Count MPV Immature Gran % (Auto) Neut % (Auto) Lymph % (Auto) [place] % (Auto) Eos % (Auto) Baso % (Auto) Lymph # (Auto) [place] # (Auto) Eos # (Auto) Baso # (Auto) Abs Immat Gran (auto) Absolute Neuts (auto) Absolute Nucleated RBC Nucleated RBC % (auto) Smear Tech's Comments [id number] Activity Intrp [id number] Inhibitor VBG pH VBG pCO2 VBG pO2 VBG HCO3 VBG O2 Saturation VBG Base Excess Sodium 134 L Potassium 4.4 Chloride 97 Carbon Dioxide 17 L Anion Gap 24 H BUN 117 H Creatinine 5.91 H* Estim Creat Clear Calc 9.6 Estimated GFR 7 POC Glucose 92 90 Random Glucose 106 Calcium 8.2 L Phosphorus 7.2 H Magnesium 2.6 Albumin 3.4 L 08/27/23 08/27/23 04:49 04:57 WBC 18.8 H RBC 2.99 L Hgb 9.2 L Hct 26.4 L MCV 88.3 MCH 30.8 MCHC 34.8 RDW 14.7 Plt Count 268 D MPV 12.7 H Immature Gran % (Auto) 3.8 H Neut % (Auto) 80.3 H Lymph % (Auto) 4.5 L [place] % (Auto) 9.8 Eos % (Auto) 1.1 Baso % (Auto) 0.5 Lymph # (Auto) 0.9 L [place] # (Auto) 1.9 H Eos # (Auto) 0.2 Baso # (Auto) 0.1 Abs Immat Gran (auto) 0.71 H Absolute Neuts (auto) 15.1 H Absolute Nucleated RBC 0.380 H Nucleated RBC % (auto) 2.0 H Smear Tech's Comments VERIFIED [id number] Activity Intrp [id number] Inhibitor VBG pH 7.40 VBG pCO2 26 VBG pO2 52 VBG HCO3 16 L VBG O2 Saturation 79.0 VBG Base Excess -6.4 Sodium Potassium Chloride Carbon Dioxide Anion Gap BUN Creatinine Estim Creat Clear Calc Estimated GFR POC Glucose Random Glucose Calcium Phosphorus Magnesium Albumin Microbiology Microbiology Results: Microbiology 08/18/23 21:45 Blood - Venous Blood Culture - Final Streptococcus pneumoniae 08/18/23 20:17 Blood - Venous Blood Culture - Final Streptococcus pneumoniae Progress Note: A&P Assessment and plan (1) Streptococcal pneumonia: Status: Acute (2) Septic shock due to streptococcal infection: Status: Acute (3) Acute hypoxic respiratory failure: Status: Acute (4) BRE (acute kidney injury): Status: Acute (5) MGUS (monoclonal gammopathy of unknown significance): Status: Acute (6) Uremic encephalopathy: Status: Acute Plan Assessment: 73-year-old lady admitted with septic shock secondary to streptococcal pneumonia further complicated by acute renal failure requiring hemodialysis support and septic encephalopathy Plan: Neuro: Poor arousal with sedation vacation likely secondary to septic encephalopathy, also with uremic component. Continue to monitor clinically. Cardiac: No acute issues. Pulmonary: Acute hypoxic respiratory failure requiring ventilatory support secondary to streptococcal pneumonia on the background of sarcoidosis Renal: Acute renal failure on the background of septic shock, likely ATN. Nephrology service care appreciated. Continue hemodialysis support. Underlying MGUS. Endo: No acute issues. GI: No acute issues. ID: Streptococcal pneumonia, continue ceftriaxone. Heme/Onc: No acute issues. Psych: No acute issues. Miscellaneous: No acute issues. Prophylaxis: Heparin, ppi Diet: Tube feeds Critical care time spent: 60 minutes Quality Stroke Does the patient have a stroke diagnosis?: No VTE Prior VTE?: No VTE Risk Level:: Medical - moderate - high VTE Device Contraindication: N/A - Device Ordered VTE Drug Contraindication: Treatment Not Tolerated
--- NOTE | 2023-08-27 10:59 | P.RADPN_ITS ---
RADIOLOGY Narrative Narrative: Procedure Note: Left IJ non-tunneled dialysis line placement A 23 cm left IJ Permacath was placed using US and Fluoro. Tip at cavoatrial junction. The cuff is exposed. This catheter will be treated as a temporary non- tunnelled dialysis catheter. ICU team is aware of this. Existing nonfunctional left neck catheter was removed entirely. No immediate complications. Willie BOYD
[2023-08-27 11:38] LABS: Glucose, Whole Blood 102 mg/dL (60-115)
[2023-08-27 17:52] LABS: Glucose, Whole Blood 103 mg/dL (60-115)
[2023-08-27] MEDS: Norepinephrine Bitartrate/D5W 8 MG/250 ML PLAST..BAG 11.88 MG IV (18:06)
--- NOTE | 2023-08-27 18:27 | P.PNNP_ITS ---
Subjective Subjective Date of Service: 08/27/23 Interval history: Seen and examined, events noted Physical Exam 2 Vital Signs: Vital Signs: Last Vital Signs Temp 97.2 F 08/27/23 16:00 Pulse 91 08/27/23 18:06 Resp 37 H 08/27/23 18:00 BP 91/47 L 08/27/23 18:06 Pulse Ox 97 08/27/23 18:00 O2 Del Method Mechanical Ventil ation 08/27/23 18:00 O2 Flow Rate 55 08/20/23 18:00 FiO2 30 08/27/23 18:00 BMI result Body Mass Index 32.6 Const: Other: intubated, sedated Resp: Other: on ventilator Cardio: Rate: tachycardic Rhythm: regular rhythm GI: Inspection: Yes normal to inspection and No distended Palpation (GI): n ot firm, nontender, no guarding and not rigid Neuro: Other: intubated, sedated Extrem: Other: non-pitting edema throughout Objective Data Labs 08/27/23 04:49 08/27/23 04:42 Labs: Laboratory Results - last 24 hr 08/26/23 08/27/23 08/27/23 23:52 04:42 04:49 WBC 18.8 H RBC 2.99 L Hgb 9.2 L Hct 26.4 L MCV 88.3 MCH 30.8 MCHC 34.8 RDW 14.7 Plt Count 268 D MPV 12.7 H Immature Gran % (Auto) 3.8 H Neut % (Auto) 80.3 H Lymph % (Auto) 4.5 L [place] % (Auto) 9.8 Eos % (Auto) 1.1 Baso % (Auto) 0.5 Lymph # (Auto) 0.9 L [place] # (Auto) 1.9 H Eos # (Auto) 0.2 Baso # (Auto) 0.1 Abs Immat Gran (auto) 0.71 H Absolute Neuts (auto) 15.1 H Absolute Nucleated RBC 0.380 H Nucleated RBC % (auto) 2.0 H Smear Tech's Comments VERIFIED VBG pH VBG pCO2 VBG pO2 VBG HCO3 VBG O2 Saturation VBG Base Excess Sodium 134 L Potassium 4.4 Chloride 97 Carbon Dioxide 17 L Anion Gap 24 H BUN 117 H Creatinine 5.91 H* Estim Creat Clear Calc 9.6 Estimated GFR 7 POC Glucose 90 Random Glucose 106 Calcium 8.2 L Phosphorus 7.2 H Magnesium 2.6 Albumin 3.4 L 08/27/23 08/27/23 08/27/23 04:57 11:35 17:49 WBC RBC Hgb Hct MCV MCH MCHC RDW Plt Count MPV Immature Gran % (Auto) Neut % (Auto) Lymph % (Auto) [place] % (Auto) Eos % (Auto) Baso % (Auto) Lymph # (Auto) [place] # (Auto) Eos # (Auto) Baso # (Auto) Abs Immat Gran (auto) Absolute Neuts (auto) Absolute Nucleated RBC Nucleated RBC % (auto) Smear Tech's Comments VBG pH 7.40 VBG pCO2 26 VBG pO2 52 VBG HCO3 16 L VBG O2 Saturation 79.0 VBG Base Excess -6.4 Sodium Potassium Chloride Carbon Dioxide Anion Gap BUN Creatinine Estim Creat Clear Calc Estimated GFR POC Glucose 102 103 Random Glucose Calcium Phosphorus Magnesium Albumin Microbiology Microbiology Results: Microbiology 08/26/23 13:39 Blood - Venous Blood Culture - Preliminary No growth after 24 hours. 08/26/23 13:39 Blood - Venous Blood Culture - Preliminary No growth after 24 hours. 08/18/23 21:45 Blood - Venous Blood Culture - Final Streptococcus pneumoniae 08/18/23 20:17 Blood - Venous Blood Culture - Final Streptococcus pneumoniae Procedures Date of Service Date of Service: 08/27/23 Assessment & Plan Assessment and plan (1) Septic shock due to Gram positive bacteria: Status: Inactive Plan Ms. 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 Course is complicated by BRE, and volume overload refractory to IV diuresis now requireing HD support Sero results noted IgGK ( known H/O going back > 1 year) Low C3 and C4: h/o CVDz but also raises quesof IM Cx GN assoc with infetion ( PIGN) ancanegative incr PLT makes TMA unlikley Etiology of BRE: most c/w sepsis assoc ATN with other possibilty being Glomerular disease given sarcoid and RA history is possible and now with low C3 C4 also raises ques of ( PIGN) as well REC: HD again today; track UOP trending up and metabolic; may need to consider pros/cons of kidney Bx next week depending on clinical course and if renal func does not improve s/p new temp HD cath as current one too short ( 13 cm) and eventually Pcath once bld cult neg x 48 hrs Time Spent With Patient Time: Total time managing care of this patient today ____ minutes. Progress Note: Quality Stroke Does the patient have a stroke diagnosis?: No
[2023-08-27 23:51] LABS: Glucose, Whole Blood 118 mg/dL (60-115)
[2023-08-28] VITALS (63 sets, daily range): BP systolic 74–177; BP diastolic 42–76; PULSE 92–119; RESP 17–46; TEMP 34.7–38.4; O2SAT 92–99; BMI 33.2
[2023-08-28] MEDS: Heparin Sodium,Porcine 5,000 UNIT/ML VIAL 5000 UNIT SUBCUT ×3 (01:54→17:02)
[2023-08-28] MEDS: propofoL 1,000 MG/100 ML VIAL 15.2 MG IVCONT (01:55)
[2023-08-28] MEDS: fentaNYL citrate/PF 100 MCG/2 ML VIAL 50 MCG IVPUSH ×2 (03:32→17:26)
--- NOTE | 2023-08-28 04:07 | PC.NURSE ---
CARE ASSUMED 7PM...REMAINED TUBED/VENTED,,,CPAP 5/PSV 12/FIO2 30#/PEEP 5.....RR 32-36 AT HS...Ve 14-15 L/M....HEMODIALYSIS IN PROGRESS VIA NEW LEFT JUGULAR DIALYSIS CATHETER PLACED IN IR ON DAY-SHIFT...DIALYSIS COMPLETED APPROX 8PM..BOOSTER ASSEMBLER STATED 3.5 KG FLUID REMOVED....LEVOPHED TITRATED DURING DIALYSIS FOR LABILE BP....INCREASED RR OVERNIGHT..RR 38-42...Ve 15 l/m...GRIMACES AND/OR SHAKES HEAD BUT DOES NOT FOLLOW COMMANDS...PROPOFOL TO 40 MCG/KG/MIN W/O EFFECT...ICU PETROLEUM ENGINEERING PROFESSOR PRESENT...PLACED BY RT ON PCV MODE: AC RATE 18/IP 15/FIO2 30%/PEEP 5....Ve 13-14 L/M...FENTANYL 50 MCG IV X1 PER PETROLEUM ENGINEERING PROFESSOR...RESTFUL AFTER FENTANYL AND VENT MODE CHANGE...RR 28-32...HR DECREASED FROM 108 TO 92-94....NSR..OCASSIONAL PVC'S..
[2023-08-28] MEDS: propofoL 1,000 MG/100 ML VIAL 24.31 MG IVCONT ×3 (05:28→23:36)
[2023-08-28] MEDS: Omeprazole/Na Bicarb Oral Susp 20 MG/10 ML UD Cup 40 MG PO (05:29)
[2023-08-28 05:33] LABS: VBG HCO3 20 mmol/L (22-26); VBG pCO2 30 mmHg; VBG pH 7.43 (7.32-7.43); VBG pO2 46 mmHg
[2023-08-28 05:35] LABS: Venous Blood Gas Refer to POC result
[2023-08-28 05:54] LABS: MANUAL DIFF FLAG NO
[2023-08-28 06:06] LABS: Basophils Absolute Auto 0.1 X10*3/uL (0.0-0.2); Basophils Percent Auto 0.8 % (0-2); Eosinophils Absolute Auto 0.2 X10*3/uL (0.0-0.4); Eosinophils Percent Auto 1.5 % (0-4); Hematocrit 28.1 % (37.0-47.0); Hemoglobin 9.8 g/dl (12.0-16.0); Imm Gran Abs Auto 0.54 X10*3/uL (0.00-0.03); Lymphocytes Absolute Auto 0.7 X10*3/uL (1.2-4.9); Mean Corpuscular HGB Conc 34.9 g/dl (31.0-35.0); Mean Corpuscular Hemoglobin 30.6 pg (27.0-33.0); Mean Corpuscular Volume 87.8 fL (80.0-98.0); Monocytes Absolute Auto 1.4 X10*3/uL (0.1-1.2); Monocytes Percent Auto 12.7 % (2-11); Platelet Count 349 X10*3/uL (160-400); Red Cell Distribution Width 15.4 % (11.0-16.0); White Blood Count 10.8 X10*3/uL (4.8-10.8)
[2023-08-28 06:07] LABS: NRBC Pct Auto 1.7 /100WBC (0.0-0.2)
[2023-08-28 06:22] LABS: Albumin Level 3.7 g/dL (3.5-5.0); Anion Gap 25 (12-20); Blood Urea Nitrogen 88 mg/dL (9-16); Calcium 8.5 mg/dL (8.4-10.2); Carbon Dioxide 19 mmol/L (22-29); Chloride 95 mmol/L (96-108); Creatinine Clr Calc Pharmacy 12.6; Estimated Glomerular Filt Rate 9; Glucose Random 113 mg/dL (60-115); Magnesium 2.6 mg/dL (1.6-2.6); Phosphorus 7.4 mg/dL (2.7-4.5); Potassium 4.8 mmol/L (3.3-5.1); Sodium 134 mmol/L (135-145)
[2023-08-28] MEDS: cefTRIAXone sodium 2 GM in 0.9 % Sodium Chloride 50 ML IV (08:38)
[2023-08-28] MEDS: Chlorhexidine Gluc Oral Rinse 15 ML MOUTHWASH BUCCAL ×3 (08:38→19:55)
--- NOTE | 2023-08-28 10:38 | PM.CCPN ---
Subjective Subjective Date of Service: 08/28/23 Interval History: 73-year-old lady with underlying history of sarcoidosis, rheumatoid arthritis, MGUS, emphysema admitted on 08/18/2023 with septic shock secondary to streptococcal pneumonia requiring pressor support and intubation, further complicated by acute renal failure now requiring hemodialysis support and Poor arousal with sedation vacation, likely secondary to uremic encephalopathy. No events overnight. encephalopathy is improving slowly, following commands with sedation vacation today. Critical Care Time (minutes): 60 Physical Exam Vital Signs: Vital Signs: Last Vital Signs Temp 98.1 F 08/28/23 08:00 Pulse 106 H 08/28/23 10:00 Resp 34 H 08/28/23 10:00 BP 135/66 08/28/23 10:00 Pulse Ox 96 08/28/23 10:00 O2 Del Method Mechanical Ventil ation 08/28/23 10:00 O2 Flow Rate 55 08/20/23 18:00 FiO2 30 08/28/23 10:00 BMI result Body Mass Index 33.2 Const: General: no acute distress and other ( Sedated on the vent) Eyes: Sclerae: sclerae normal EOM: EOMs intact bilaterally Neck: Neck: Yes no lymphadenopathy, Yes trachea midline and Yes supple Resp: Auscultation: crackles ( mild bilateral) Cardio: Rate: tachycardic Rhythm: regular rhythm Heart sounds: no gallops, no murmurs and no rubs GI: Palpation (GI): Soft to palpation and Other GI palpation findings present ( Nontender) Auscultation: normal bowel sounds Extrem: General: No clubbing, No cyanosis and Yes edema ( 1+ bilateral) Objective Data Labs 08/28/23 05:25 08/28/23 05:25 Labs: Laboratory Results - last 24 hr 08/27/23 08/27/23 08/27/23 11:35 17:49 23:47 WBC RBC Hgb Hct MCV MCH MCHC RDW Plt Count MPV Immature Gran % (Auto) Neut % (Auto) Lymph % (Auto) [place] % (Auto) Eos % (Auto) Baso % (Auto) Lymph # (Auto) [place] # (Auto) Eos # (Auto) Baso # (Auto) Abs Immat Gran (auto) Absolute Neuts (auto) Absolute Nucleated RBC Nucleated RBC % (auto) VBG pH VBG pCO2 VBG pO2 VBG HCO3 VBG O2 Saturation VBG Base Excess Sodium Potassium Chloride Carbon Dioxide Anion Gap BUN Creatinine Estim Creat Clear Calc Estimated GFR POC Glucose 102 103 118 H Random Glucose Calcium Phosphorus Magnesium Albumin 08/28/23 08/28/23 05:25 05:28 WBC 10.8 RBC 3.20 L Hgb 9.8 L Hct 28.1 L MCV 87.8 MCH 30.6 MCHC 34.9 RDW 15.4 Plt Count 349 D MPV 12.0 Immature Gran % (Auto) 5.0 H Neut % (Auto) 74.0 H Lymph % (Auto) 6.0 L [place] % (Auto) 12.7 H Eos % (Auto) 1.5 Baso % (Auto) 0.8 Lymph # (Auto) 0.7 L [place] # (Auto) 1.4 H Eos # (Auto) 0.2 Baso # (Auto) 0.1 Abs Immat Gran (auto) 0.54 H Absolute Neuts (auto) 8.0 Absolute Nucleated RBC 0.180 H Nucleated RBC % (auto) 1.7 H VBG pH 7.43 VBG pCO2 30 VBG pO2 46 VBG HCO3 20 L VBG O2 Saturation 72.0 VBG Base Excess -3.0 Sodium 134 L Potassium 4.8 Chloride 95 L Carbon Dioxide 19 L Anion Gap 25 H BUN 88 H Creatinine 4.57 H* Estim Creat Clear Calc 12.6 Estimated GFR 9 POC Glucose Random Glucose 113 Calcium 8.5 Phosphorus 7.4 H Magnesium 2.6 Albumin 3.7 Microbiology Microbiology Results: Microbiology 08/26/23 13:39 Blood - Venous Blood Culture - Preliminary No growth after 24 hours. 08/26/23 13:39 Blood - Venous Blood Culture - Preliminary No growth after 24 hours. 08/18/23 21:45 Blood - Venous Blood Culture - Final Streptococcus pneumoniae 08/18/23 20:17 Blood - Venous Blood Culture - Final Streptococcus pneumoniae Progress Note: A&P Assessment and plan (1) Uremic encephalopathy: Status: Acute (2) Streptococcal pneumonia: Status: Acute (3) Acute hypoxic respiratory failure: Status: Acute (4) BRE (acute kidney injury): Status: Acute (5) MGUS (monoclonal gammopathy of unknown significance): Status: Acute (6) Rheumatoid arthritis involving multiple joints: Status: Acute Plan Assessment: 73-year-old lady admitted with septic shock secondary to streptococcal pneumonia further complicated by acute renal failure requiring hemodialysis support and septic encephalopathy Plan: Neuro: Poor arousal with sedation vacation likely secondary to septic encephalopathy, also with uremic component, improving. Cardiac: No acute issues. Pulmonary: Acute hypoxic respiratory failure requiring ventilatory support secondary to streptococcal pneumonia on the background of sarcoidosis Renal: Acute renal failure on the background of septic shock, likely ATN. Nephrology service care appreciated. Continue hemodialysis support. Underlying MGUS. Endo: No acute issues. GI: No acute issues. ID: Streptococcal pneumonia, continue ceftriaxone. Heme/Onc: No acute issues. Psych: No acute issues. Miscellaneous: No acute issues. Prophylaxis: Heparin, ppi Diet: Tube feeds Critical care time spent: 60 minutes Quality Stroke Does the patient have a stroke diagnosis?: No VTE Prior VTE?: No VTE Risk Level:: Medical - moderate - high VTE Device Contraindication: N/A - Device Ordered VTE Drug Contraindication: Treatment Not Tolerated
--- NOTE | 2023-08-28 10:52 | MHC.CLN ---
F/U DISCUSSED WITH MD AT ROUNDS DAILY HD PT RECEIVING NEPRO TO MAX GOAL RATE 25 ML PER HOUR PROVIDES 1080 KCALS (1722 KCALS WITH SEDATION, 29 KCALS/KG IBW); 49 G PROTEIN (.82 G/KG IBW); 436 ML FREE WATER FROM FORMULA MONITOR TOLERANCE, RESIDUALS AND LYTES
--- NOTE | 2023-08-28 12:03 | PC.NURSE ---
Addendum entered by Nelly Salmeron RN 08/28/23 17:35: Minimal response on sedation vacation - patient opens eyes to noxious stimuli but unable to follow commands or track; positive cough, gag and pain response. Patient re-sedated on Propofol at [address] Hawkins - RT called to bedside and patient placed on PC settings w/ re-sedation. RR up to mid 40's - sedation increased per EMAR & RT called to bedside. No improvement with vent settings per RT. Dr Hawkins notified - TO Fentanyl 50mcg IVP administered x1 w/ good effect - RR down to high 20's, synchronous w/ PC settings. MAP maintaining <65 - levo gtt titrated per EMAR. TO Dr Hawkins Fentanyl 50mcg q2hr PRN ordered. Current vitals: HR 111, RR 26, 106/64 MAP 78, 93% on PC 15/5 rate 18 30% fio2. Addendum entered by Nelly Salmeron RN 08/28/23 14:48: Dialysis completed - 2kilos removed per government teacher. Propofol paused for second sedation vacation per MD - Levophed titrated per EMAR. Family updated and at bedside. Original Note: Sedation vacation started at 0830 - patients eyes opened, positive tracking, shaking head to yes and no questions. Plan for dialysis - patient re-sedated per Dr Hawkins for dialysis. Plan for another sedation vacation after dialysis. Patient started dialysis at 1050. 1115 MAP <65 - MD notified and at bedside - Levophed gtt titrated - see EMAR - MAP currently >65 on Levophed gtt @ 0.17mcq/kg/min. loom checker backed decreased rate of fluid removal VO Dr Hawkins.
[2023-08-28] MEDS: Norepinephrine Bitartrate/D5W 8 MG/250 ML PLAST..BAG 28.85 MG IV (12:52)
[2023-08-28] MEDS: propofoL 1,000 MG/100 ML VIAL 30.39 MG IVCONT ×3 (12:52→21:04)
--- NOTE | 2023-08-28 15:44 | MHC.CM.PN ---
Pt continues care in ICU: on vent support and new HD via permacath. Pt was independent prior to admission: will wait for tolerance of sedation weaning and extubation for finalizaiton of d/c needs. It is anticipated pt will need some sort of STR - this will depend on respiratory and renal functioning. CM to follow. Family to bring in copy of HCP
[2023-08-29] VITALS (42 sets, daily range): BP systolic 80–161; BP diastolic 47–72; PULSE 87–109; RESP 18–40; TEMP 34.8–38; O2SAT 94–100; BMI 32.5
[2023-08-29] MEDS: Heparin Sodium,Porcine 5,000 UNIT/ML VIAL 5000 UNIT SUBCUT ×3 (01:42→17:36)
[2023-08-29] MEDS: propofoL 1,000 MG/100 ML VIAL 18.23 MG IVCONT ×2 (04:08→08:33)
[2023-08-29 05:24] LABS: VBG Base Excess -0.7 mmol/L; VBG HCO3 22 mmol/L (22-26); VBG pCO2 31 mmHg; VBG pH 7.46 (7.32-7.43); VBG pO2 43 mmHg
[2023-08-29 05:41] LABS: Venous Blood Gas Refer to POC result
[2023-08-29] MEDS: Omeprazole/Na Bicarb Oral Susp 20 MG/10 ML UD Cup 40 MG PO (05:50)
[2023-08-29 05:52] LABS: Basophils Percent Auto 0.5 % (0-2); Eosinophils Absolute Auto 0.1 X10*3/uL (0.0-0.4); Eosinophils Percent Auto 1.4 % (0-4); Hematocrit 28.4 % (37.0-47.0); Hemoglobin 9.6 g/dl (12.0-16.0); Imm Gran Abs Auto 0.38 X10*3/uL (0.00-0.03); Imm Gran Pct Auto 4.5 % (0.0-0.4); Lymphocytes Absolute Auto 0.9 X10*3/uL (1.2-4.9); Lymphocytes Percent Auto 10.3 % (20-40); MANUAL DIFF FLAG SCAN; Mean Corpuscular HGB Conc 33.8 g/dl (31.0-35.0); Mean Corpuscular Hemoglobin 30.1 pg (27.0-33.0); Mean Platelet Volume 11.9 fL (9.4-12.3); Monocytes Absolute Auto 1.5 X10*3/uL (0.1-1.2); Monocytes Percent Auto 17.9 % (2-11); Neutrophils Absolute Auto 5.6 x10*3/uL (2.0-8.3); Neutrophils Percent Auto 65.4 % (45-73); Platelet Count 386 X10*3/uL (160-400); Red Blood Count 3.19 X10*6/uL (4.20-5.50); SCAN SMEAR FLAG 1; White Blood Count 8.5 X10*3/uL (4.8-10.8)
[2023-08-29 05:53] LABS: NRBC Pct Auto 1.3 /100WBC (0.0-0.2)
[2023-08-29 06:06] LABS: Albumin Level 2.9 g/dL (3.5-5.0); Anion Gap 23 (12-20); Blood Urea Nitrogen 69 mg/dL (9-16); Calcium 8.1 mg/dL (8.4-10.2); Carbon Dioxide 20 mmol/L (22-29); Chloride 95 mmol/L (96-108); Creatinine Clr Calc Pharmacy 14.6; Estimated Glomerular Filt Rate 11; Glucose Random 106 mg/dL (60-115); Magnesium 2.5 mg/dL (1.6-2.6); Phosphorus 6.4 mg/dL (2.7-4.5); Potassium 4.1 mmol/L (3.3-5.1); Sodium 134 mmol/L (135-145)
[2023-08-29] MEDS: Albumin Human 25 % 100 ML IV ×4 (06:22→22:25)
[2023-08-29 07:36] LABS: SLIDE REVIEW VERIFIED
[2023-08-29] MEDS: Chlorhexidine Gluc Oral Rinse 15 ML MOUTHWASH BUCCAL ×3 (08:00→22:25)
[2023-08-29] MEDS: cefTRIAXone sodium 2 GM in 0.9 % Sodium Chloride 50 ML IV (08:01)
[2023-08-29] MEDS: Artificial Tears 15 ML DROPS 2 DROP EYE-BOTH (08:33)
--- NOTE | 2023-08-29 10:33 | P.PNCC_ITS ---
Subjective Subjective Date of Service: 08/29/23 Interval History: 73-year-old lady with underlying history of sarcoidosis, rheumatoid arthritis, MGUS, emphysema admitted on 08/18/2023 with septic shock secondary to streptococcal pneumonia requiring pressor support and intubation, further complicated by acute renal failure now requiring hemodialysis support and Poor arousal with sedation vacation, likely secondary to uremic encephalopathy. No events overnight. Critical Care Time (minutes): 60 Physical Exam 2 Vital Signs: Vital Signs: Last Vital Signs Temp 98.8 F 08/29/23 10:00 Pulse 100 08/29/23 10:00 Resp 24 H 08/29/23 10:00 BP 116/64 08/29/23 10:00 Pulse Ox 98 08/29/23 10:00 O2 Del Method Mechanical Ventil ation 08/29/23 10:00 O2 Flow Rate 55 08/20/23 18:00 FiO2 30 08/29/23 10:00 BMI result Body Mass Index 32.5 Const: General: no acute distress and other (Sedated on the vent) Eyes: Sclerae: sclerae normal EOM: EOMs intact bilaterally Neck: Neck: Yes no lymphadenopathy, Yes trachea midline and Yes supple Resp: Auscultation: clear to auscultation bilaterally Cardio: Rate: tachycardic Rhythm: regular rhythm Heart sounds: no gallops, no murmurs and no rubs GI: Palpation (GI): Soft to palpation and Other GI palpation findings present ( Nontender) Auscultation: normal bowel sounds Extrem: General: No clubbing, No cyanosis and Yes edema (1+ bilateral) Objective Data Labs 08/29/23 05:08 08/29/23 05:08 Labs: Laboratory Results - last 24 hr 08/29/23 08/29/23 05:08 05:18 WBC 8.5 RBC 3.19 L Hgb 9.6 L Hct 28.4 L MCV 89.0 MCH 30.1 MCHC 33.8 RDW 15.0 Plt Count 386 MPV 11.9 Immature Gran % (Auto) 4.5 H Neut % (Auto) 65.4 Lymph % (Auto) 10.3 L [place] % (Auto) 17.9 H Eos % (Auto) 1.4 Baso % (Auto) 0.5 Lymph # (Auto) 0.9 L [place] # (Auto) 1.5 H Eos # (Auto) 0.1 Baso # (Auto) 0.0 Abs Immat Gran (auto) 0.38 H Absolute Neuts (auto) 5.6 Absolute Nucleated RBC 0.110 H Nucleated RBC % (auto) 1.3 H Smear Tech's Comments VERIFIED VBG pH 7.46 H VBG pCO2 31 VBG pO2 43 VBG HCO3 22 VBG O2 Saturation 69.0 VBG Base Excess -0.7 Sodium 134 L Potassium 4.1 Chloride 95 L Carbon Dioxide 20 L Anion Gap 23 H BUN 69 H Creatinine 3.90 H Estim Creat Clear Calc 14.6 Estimated GFR 11 Random Glucose 106 Calcium 8.1 L Phosphorus 6.4 H Magnesium 2.5 Albumin 2.9 L Microbiology Microbiology Results: Microbiology 08/26/23 13:39 Blood - Venous Blood Culture - Preliminary No growth after 48 hours. 08/26/23 13:39 Blood - Venous Blood Culture - Preliminary No growth after 48 hours. 08/18/23 21:45 Blood - Venous Blood Culture - Final Streptococcus pneumoniae 08/18/23 20:17 Blood - Venous Blood Culture - Final Streptococcus pneumoniae Progress Note: A&P Assessment and plan (1) Uremic encephalopathy: Status: Acute (2) Streptococcal pneumonia: Status: Acute (3) Acute hypoxic respiratory failure: Status: Acute (4) BRE (acute kidney injury): Status: Acute (5) MGUS (monoclonal gammopathy of unknown significance): Status: Acute (6) Rheumatoid arthritis involving multiple joints: Status: Acute Plan Assessment: 73-year-old lady admitted with septic shock secondary to streptococcal pneumonia further complicated by acute renal failure requiring hemodialysis support and septic encephalopathy Plan: Neuro: Poor arousal with sedation vacation likely secondary to septic encephalopathy, also with uremic component, improving. Cardiac: No acute issues. Pulmonary: Acute hypoxic respiratory failure requiring ventilatory support secondary to streptococcal pneumonia on the background of sarcoidosis. Continue to titrate off ventilatory support as tolerated. Renal: Acute renal failure on the background of septic shock, likely ATN. Nephrology service care appreciated. Continue hemodialysis support. Underlying MGUS. Endo: No acute issues. GI: No acute issues. ID: Streptococcal pneumonia, continue ceftriaxone. Heme/Onc: No acute issues. Psych: No acute issues. Miscellaneous: No acute issues. Prophylaxis: Heparin, ppi Diet: Tube feeds Critical care time spent: 60 minutes Quality Stroke Does the patient have a stroke diagnosis?: No VTE Prior VTE?: No VTE Risk Level:: Medical - moderate - high VTE Device Contraindication: N/A - Device Ordered VTE Drug Contraindication: Treatment Not Tolerated
[2023-08-29] MEDS: Norepinephrine Bitartrate/D5W 8 MG/250 ML PLAST..BAG 6.79 MG IV (10:45)
[2023-08-29] MEDS: fentaNYL citrate/PF 100 MCG/2 ML VIAL 50 MCG IVPUSH (10:49)
--- NOTE | 2023-08-29 15:56 | PC.RT ---
Pt cont to shaun well post extubation. Was transitioned from 4 lpm oxy mask to 3 lpm etco2 n/c. A 28% cool mist via shovel mask was added for throat discomfort per Dr. Hawkins and pt is shaun well. RN aware.
[2023-08-30] VITALS (24 sets, daily range): BP systolic 121–151; BP diastolic 51–74; PULSE 92–109; RESP 26–37; TEMP 36.4–36.9; O2SAT 91–99; BMI 32.1
[2023-08-30] MEDS: Heparin Sodium,Porcine 5,000 UNIT/ML VIAL 5000 UNIT SUBCUT ×3 (01:01→16:37)
[2023-08-30] MEDS: Albumin Human 25 % 100 ML IV (04:14)
[2023-08-30 05:25] LABS: VBG Base Excess -4.3 mmol/L; VBG HCO3 19 mmol/L (22-26); VBG pCO2 32 mmHg; VBG pH 7.38 (7.32-7.43); VBG pO2 49 mmHg
[2023-08-30 05:32] LABS: Basophils Absolute Auto 0.1 X10*3/uL (0.0-0.2); Basophils Percent Auto 0.6 % (0-2); Eosinophils Absolute Auto 0.1 X10*3/uL (0.0-0.4); Eosinophils Percent Auto 0.7 % (0-4); Hematocrit 26.4 % (37.0-47.0); Hemoglobin 8.7 g/dl (12.0-16.0); Imm Gran Abs Auto 0.28 X10*3/uL (0.00-0.03); Imm Gran Pct Auto 3.4 % (0.0-0.4); Lymphocytes Absolute Auto 0.9 X10*3/uL (1.2-4.9); Lymphocytes Percent Auto 11.4 % (20-40); MANUAL DIFF FLAG SCAN; Mean Corpuscular Hemoglobin 30.2 pg (27.0-33.0); Mean Corpuscular Volume 91.7 fL (80.0-98.0); Mean Platelet Volume 11.6 fL (9.4-12.3); Monocytes Absolute Auto 1.5 X10*3/uL (0.1-1.2); Monocytes Percent Auto 18.9 % (2-11); NRBC Pct Auto 0.6 /100WBC (0.0-0.2); Neutrophils Absolute Auto 5.3 x10*3/uL (2.0-8.3); Platelet Count 364 X10*3/uL (160-400); Red Blood Count 2.88 X10*6/uL (4.20-5.50); Red Cell Distribution Width 15.3 % (11.0-16.0); SCAN SMEAR FLAG 1; Venous Blood Gas Refer to POC result; White Blood Count 8.2 X10*3/uL (4.8-10.8)
[2023-08-30 05:52] LABS: Albumin Level 4.8 g/dL (3.5-5.0); Anion Gap 24 (12-20); Blood Urea Nitrogen 66 mg/dL (9-16); Calcium 8.7 mg/dL (8.4-10.2); Carbon Dioxide 19 mmol/L (22-29); Chloride 97 mmol/L (96-108); Creatinine Clr Calc Pharmacy 15.3; Estimated Glomerular Filt Rate 12; Glucose Random 70 mg/dL (60-115); Magnesium 2.5 mg/dL (1.6-2.6); Phosphorus 7.4 mg/dL (2.7-4.5); Potassium 3.9 mmol/L (3.3-5.1); Sodium 136 mmol/L (135-145)
[2023-08-30 06:03] LABS: SLIDE REVIEW VERIFIED
[2023-08-30] MEDS: Pantoprazole Sodium 40 MG/10 ML VIAL IVPUSH (07:49)
[2023-08-30] MEDS: cefTRIAXone sodium 2 GM in 0.9 % Sodium Chloride 50 ML IV (09:02)
--- NOTE | 2023-08-30 10:20 | PM.CCPN ---
Subjective Subjective Date of Service: 08/30/23 Interval History: 73-year-old lady with underlying history of sarcoidosis, rheumatoid arthritis, MGUS, emphysema admitted on 08/18/2023 with septic shock secondary to streptococcal pneumonia requiring pressor support and intubation, further complicated by acute renal failure now requiring hemodialysis support and Poor arousal with sedation vacation, likely secondary to uremic encephalopathy. Extubated uneventfully on 08/29/2023. No events overnight. Critical Care Time (minutes): 45 Physical Exam Vital Signs: Vital Signs: Last Vital Signs Temp 98.5 F 08/30/23 08:00 Pulse 105 H 08/30/23 10:00 Resp 33 H 08/30/23 10:00 BP 138/65 08/30/23 10:00 Pulse Ox 98 08/30/23 10:00 O2 Del Method Nasal Cannula, Sh ovel Mask 08/30/23 10:00 O2 Flow Rate 5 08/30/23 10:00 FiO2 30 08/29/23 13:00 BMI result Body Mass Index 32.1 Const: General: no acute distress, lethargic ( [place]) and other ( weak) Orientation/consciousness: lethargic ( Arousable) Eyes: Sclerae: sclerae normal EOM: EOMs intact bilaterally Neck: Neck: Yes no lymphadenopathy, Yes trachea midline and Yes supple Resp: Effort & Inspection: normal respiratory effort and no respiratory distress Auscultation: clear to auscultation bilaterally Cardio: Rate: tachycardic Rhythm: regular rhythm Heart sounds: no gallops, no murmurs and no rubs GI: Palpation (GI): Soft to palpation and Other GI palpation findings present ( Nontender) Auscultation: normal bowel sounds Extrem: General: Yes no pedal edema, No clubbing and No cyanosis Objective Data Labs 08/30/23 05:10 08/30/23 05:10 Labs: Laboratory Results - last 24 hr 08/30/23 08/30/23 05:10 05:18 WBC 8.2 RBC 2.88 L Hgb 8.7 L Hct 26.4 L MCV 91.7 MCH 30.2 MCHC 33.0 RDW 15.3 Plt Count 364 MPV 11.6 Immature Gran % (Auto) 3.4 H Neut % (Auto) 65.0 Lymph % (Auto) 11.4 L [place] % (Auto) 18.9 H Eos % (Auto) 0.7 Baso % (Auto) 0.6 Lymph # (Auto) 0.9 L [place] # (Auto) 1.5 H Eos # (Auto) 0.1 Baso # (Auto) 0.1 Abs Immat Gran (auto) 0.28 H Absolute Neuts (auto) 5.3 Absolute Nucleated RBC 0.050 H Nucleated RBC % (auto) 0.6 H Smear Tech's Comments VERIFIED VBG pH 7.38 VBG pCO2 32 VBG pO2 49 VBG HCO3 19 L VBG O2 Saturation 76.0 VBG Base Excess -4.3 Sodium 136 Potassium 3.9 Chloride 97 Carbon Dioxide 19 L Anion Gap 24 H BUN 66 H Creatinine 3.70 H Estim Creat Clear Calc 15.3 Estimated GFR 12 Random Glucose 70 Calcium 8.7 D Phosphorus 7.4 H Magnesium 2.5 Albumin 4.8 Microbiology Microbiology Results: Microbiology 08/26/23 13:39 Blood - Venous Blood Culture - Preliminary No growth after 48 hours. 08/26/23 13:39 Blood - Venous Blood Culture - Preliminary No growth after 48 hours. 08/18/23 21:45 Blood - Venous Blood Culture - Final Streptococcus pneumoniae 08/18/23 20:17 Blood - Venous Blood Culture - Final Streptococcus pneumoniae Progress Note: A&P Assessment and plan (1) Uremic encephalopathy: Status: Acute (2) Streptococcal pneumonia: Status: Acute (3) Acute hypoxic respiratory failure: Status: Acute (4) BRE (acute kidney injury): Status: Acute (5) Rheumatoid arthritis involving multiple joints: Status: Acute (6) Sarcoidosis: Status: Acute Plan Assessment: 73-year-old lady admitted with septic shock secondary to streptococcal pneumonia further complicated by acute renal failure requiring hemodialysis support and septic encephalopathy Plan: Neuro: Poor arousal with sedation vacation likely secondary to septic encephalopathy, also with uremic component, improving. Cardiac: No acute issues. Pulmonary: Acute hypoxic respiratory failure requiring ventilatory support secondary to streptococcal pneumonia on the background of sarcoidosis. extubated 08/29/2023. Continue to titrate off supplemental oxygen as tolerated. Renal: Acute renal failure on the background of septic shock, likely ATN. Nephrology service care appreciated. Continue hemodialysis support. Underlying MGUS. Endo: No acute issues. GI: No acute issues. ID: Streptococcal pneumonia, completed course of ceftriaxone. will monitor of antibiotics. Heme/Onc: No acute issues. Psych: No acute issues. Miscellaneous: No acute issues. Prophylaxis: Heparin Diet: Pending swallow evaluation Critical care time spent: 45 minutes Quality Stroke Does the patient have a stroke diagnosis?: No VTE Prior VTE?: No VTE Risk Level:: Medical - moderate - high VTE Device Contraindication: N/A - Device Ordered VTE Drug Contraindication: Treatment Not Tolerated
[2023-08-30] MEDS: Acetaminophen Oral Liquid 650 MG/20.3 ML SOLUTION PO (10:54)
[2023-08-30] MEDS: Lidocaine 4 % Patch ADH..PATCH 2 PATCH TRANSDERMA (11:58)
[2023-08-30] MEDS: Acetaminophen 325 MG TABLET 650 MG PO (18:31)
[2023-08-31] VITALS (21 sets, daily range): BP systolic 98–163; BP diastolic 52–82; PULSE 95–115; RESP 17–37; TEMP 36.1–38.8; O2SAT 88–97; BMI 30.2
[2023-08-31] MEDS: Heparin Sodium,Porcine 5,000 UNIT/ML VIAL 5000 UNIT SUBCUT ×3 (01:58→17:47)
[2023-08-31 05:04] LABS: VBG Base Excess -8.5 mmol/L; VBG HCO3 15 mmol/L (22-26); VBG pCO2 26 mmHg; VBG pH 7.36 (7.32-7.43); VBG pO2 49 mmHg
[2023-08-31 05:06] LABS: Venous Blood Gas Refer to POC result
[2023-08-31 05:35] LABS: Basophils Absolute Auto 0.1 X10*3/uL (0.0-0.2); Basophils Percent Auto 0.5 % (0-2); Eosinophils Absolute Auto 0.1 X10*3/uL (0.0-0.4); Eosinophils Percent Auto 0.9 % (0-4); Hematocrit 29.2 % (37.0-47.0); Hemoglobin 9.6 g/dl (12.0-16.0); Imm Gran Abs Auto 0.18 X10*3/uL (0.00-0.03); Imm Gran Pct Auto 1.7 % (0.0-0.4); Lymphocytes Absolute Auto 1.2 X10*3/uL (1.2-4.9); Lymphocytes Percent Auto 11.4 % (20-40); MANUAL DIFF FLAG SCAN; Mean Corpuscular HGB Conc 32.9 g/dl (31.0-35.0); Mean Corpuscular Hemoglobin 29.8 pg (27.0-33.0); Mean Corpuscular Volume 90.7 fL (80.0-98.0); Mean Platelet Volume 11.5 fL (9.4-12.3); Monocytes Absolute Auto 1.8 X10*3/uL (0.1-1.2); Monocytes Percent Auto 16.8 % (2-11); NRBC Pct Auto 0.3 /100WBC (0.0-0.2); Neutrophils Absolute Auto 7.3 x10*3/uL (2.0-8.3); Neutrophils Percent Auto 68.7 % (45-73); Platelet Count 414 X10*3/uL (160-400); Red Blood Count 3.22 X10*6/uL (4.20-5.50); Red Cell Distribution Width 15.1 % (11.0-16.0); SCAN SMEAR FLAG 1; White Blood Count 10.6 X10*3/uL (4.8-10.8)
[2023-08-31 05:57] LABS: Albumin Level 4.5 g/dL (3.5-5.0); Anion Gap 30 (12-20); Blood Urea Nitrogen 106 mg/dL (9-16); Calcium 8.2 mg/dL (8.4-10.2); Carbon Dioxide 15 mmol/L (22-29); Chloride 98 mmol/L (96-108); Creatinine Clr Calc Pharmacy 9.9; Estimated Glomerular Filt Rate 8; Glucose Random 76 mg/dL (60-115); Magnesium 2.9 mg/dL (1.6-2.6); Phosphorus 9.3 mg/dL (2.7-4.5); Potassium 3.8 mmol/L (3.3-5.1); Sodium 139 mmol/L (135-145)
[2023-08-31 06:05] LABS: SLIDE REVIEW VERIFIED
[2023-08-31] MEDS: predniSONE 10 MG TABLET PO (08:48)
[2023-08-31] MEDS: Lidocaine 4 % Patch ADH..PATCH 2 PATCH TRANSDERMA (08:48)
--- NOTE | 2023-08-31 10:10 | MHC.CLN ---
F/U PATIENT EXTUBATED 08/29. DIET=REGULAR, PUREE CONSISTENCY STARTING 08/30. CONTINUES WITH HEMODIALYSIS. MONITOR FOR PO INTAKE AND DIET TOLERANCE.
--- NOTE | 2023-08-31 10:50 | MHC.CM.PN ---
Pt has made sufficient clinical progress to transfer out of ICU. Initial d/c plans were for a return to home w/family however, pt has had a prolonged ICU stay and should be evaluated by PT for ? home vs STR needs. Pt receptive to eval and would like to await outcomes for finalization of d/c planning. CM to follow.
--- NOTE | 2023-08-31 11:57 | P.PNCC_ITS ---
Subjective Subjective Date of Service: 08/31/23 Interval History: 73-year-old lady with underlying history of sarcoidosis, rheumatoid arthritis, MGUS, emphysema admitted on 08/18/2023 with septic shock secondary to streptococcal pneumonia requiring pressor support and intubation, further complicated by acute renal failure now requiring hemodialysis support and uremic encephalopathy. Extubated uneventfully on 08/29/2023. No events overnight. Critical Care Time (minutes): 0 Physical Exam 2 Vital Signs: Vital Signs: Last Vital Signs Temp 97.0 F 08/31/23 08:00 Pulse 111 H 08/31/23 11:00 Resp 37 H 08/31/23 11:00 BP 141/82 H 08/31/23 11:00 Pulse Ox 97 08/31/23 11:00 O2 Del Method Nasal Cannula 08/31/23 11:00 O2 Flow Rate 3 08/31/23 11:00 FiO2 30 08/29/23 13:00 BMI result Body Mass Index 30.2 Const: General: no acute distress, alert, awake and confusion O rientation/consciousness: confusion Eyes: Sclerae: sclerae normal EOM: EOMs intact bilaterally Neck: Neck: Yes no lymphadenopathy, Yes trachea midline and Yes supple Resp: Effort & Inspection: normal respiratory effort and no respiratory distress Auscultation: clear to auscultation bilaterally Cardio: Rate: tachycardic Rhythm: regular rhythm Heart sounds: no gallops, no murmurs and no rubs GI: Palpation (GI): Soft to palpation and Other GI palpation findings present ( Nontender) Auscultation: normal bowel sounds Neuro: General: confusion Extrem: General: No clubbing, No cyanosis and Yes edema (Trace bilateral) Objective Data Labs 08/31/23 04:55 08/31/23 04:55 Labs: Laboratory Results - last 24 hr 08/31/23 08/31/23 04:55 04:57 WBC 10.6 RBC 3.22 L Hgb 9.6 L Hct 29.2 L MCV 90.7 MCH 29.8 MCHC 32.9 RDW 15.1 Plt Count 414 H MPV 11.5 Immature Gran % (Auto) 1.7 H Neut % (Auto) 68.7 Lymph % (Auto) 11.4 L [place] % (Auto) 16.8 H Eos % (Auto) 0.9 Baso % (Auto) 0.5 Lymph # (Auto) 1.2 [place] # (Auto) 1.8 H Eos # (Auto) 0.1 Baso # (Auto) 0.1 Abs Immat Gran (auto) 0.18 H Absolute Neuts (auto) 7.3 Absolute Nucleated RBC 0.030 H Nucleated RBC % (auto) 0.3 H Smear Tech's Comments VERIFIED VBG pH 7.36 VBG pCO2 26 VBG pO2 49 VBG HCO3 15 L VBG O2 Saturation 76.0 VBG Base Excess -8.5 Sodium 139 Potassium 3.8 Chloride 98 Carbon Dioxide 15 L Anion Gap 30 H BUN 106 H Creatinine 5.54 H* Estim Creat Clear Calc 9.9 Estimated GFR 8 Random Glucose 76 Calcium 8.2 L Phosphorus 9.3 H Magnesium 2.9 H Albumin 4.5 Microbiology Microbiology Results: Microbiology 08/26/23 13:39 Blood - Venous Blood Culture - Preliminary No growth after 48 hours. 08/26/23 13:39 Blood - Venous Blood Culture - Preliminary No growth after 48 hours. 08/18/23 21:45 Blood - Venous Blood Culture - Final Streptococcus pneumoniae 08/18/23 20:17 Blood - Venous Blood Culture - Final Streptococcus pneumoniae Progress Note: A&P Assessment and plan (1) Uremic encephalopathy: Status: Acute (2) BRE (acute kidney injury): Status: Acute (3) Rheumatoid arthritis involving multiple joints: Status: Acute (4) MGUS (monoclonal gammopathy of unknown significance): Status: Acute (5) Sarcoidosis: Status: Acute Plan Assessment: 73-year-old lady admitted with septic shock secondary to streptococcal pneumonia further complicated by acute renal failure requiring hemodialysis support and septic encephalopathy Plan: Neuro: Confused secondary to uremic encephalopathy, improving. Cardiac: No acute issues. Pulmonary: Acute hypoxic respiratory failure requiring ventilatory support secondary to streptococcal pneumonia on the background of sarcoidosis. extubated 08/29/2023. Continue to titrate off supplemental oxygen as tolerated. Renal: Acute renal failure on the background of septic shock, likely ATN. Nephrology service care appreciated. Continue hemodialysis support. Underlying MGUS. Endo: No acute issues. GI: No acute issues. ID: Streptococcal pneumonia, completed course of ceftriaxone. Continue to monitor off antibiotics. Heme/Onc: No acute issues. Psych: No acute issues. Miscellaneous: No acute issues. Prophylaxis: Heparin Diet: Pureed Quality Stroke Does the patient have a stroke diagnosis?: No VTE Prior VTE?: No VTE Risk Level:: Medical - moderate - high VTE Device Contraindication: N/A - Device Ordered VTE Drug Contraindication: Treatment Not Tolerated
--- NOTE | 2023-08-31 12:29 | P.PNNP_ITS ---
Subjective Subjective Date of Service: 08/31/23 Interval history: 73-year-old lady with underlying history of sarcoidosis, rheumatoid arthritis, MGUS, emphysema admitted on 08/18/2023 with septic shock secondary to streptococcal pneumonia requiring pressor support and intubation, further complicated by acute renal failure now requiring hemodialysis support and uremic encephalopathy. Extubated uneventfully on 08/29/2023. Seen on HD today Oliguric . Physical Exam 2 Vital Signs: Vital Signs: Last Vital Signs Temp 97.3 F 08/31/23 12:00 Pulse 111 H 08/31/23 12:00 Resp 37 H 08/31/23 12:00 BP 142/72 H 08/31/23 12:00 Pulse Ox 96 08/31/23 12:00 O2 Del Method Nasal Cannula 08/31/23 12:00 O2 Flow Rate 3 08/31/23 12:00 FiO2 30 08/29/23 13:00 BMI result Body Mass Index 30.2 Const: General: no acute distress, alert, awake and confusion O rientation/consciousness: confusion Eyes: Sclerae: sclerae normal EOM: EOMs intact bilaterally Neck: Neck: Yes no lymphadenopathy, Yes trachea midline and Yes supple Resp: Effort & Inspection: normal respiratory effort and no respiratory distress Auscultation: clear to auscultation bilaterally Cardio: Rate: tachycardic Rhythm: regular rhythm Heart sounds: no gallops, no murmurs and no rubs GI: Palpation (GI): Soft to palpation and Other GI palpation findings present ( Nontender) Auscultation: normal bowel sounds Neuro: General: confusion Extrem: General: No clubbing, No cyanosis and Yes edema (Trace bilateral) Objective Data Labs 08/31/23 04:55 08/31/23 04:55 Labs: Laboratory Results - last 24 hr 08/31/23 08/31/23 04:55 04:57 WBC 10.6 RBC 3.22 L Hgb 9.6 L Hct 29.2 L MCV 90.7 MCH 29.8 MCHC 32.9 RDW 15.1 Plt Count 414 H MPV 11.5 Immature Gran % (Auto) 1.7 H Neut % (Auto) 68.7 Lymph % (Auto) 11.4 L [place] % (Auto) 16.8 H Eos % (Auto) 0.9 Baso % (Auto) 0.5 Lymph # (Auto) 1.2 [place] # (Auto) 1.8 H Eos # (Auto) 0.1 Baso # (Auto) 0.1 Abs Immat Gran (auto) 0.18 H Absolute Neuts (auto) 7.3 Absolute Nucleated RBC 0.030 H Nucleated RBC % (auto) 0.3 H Smear Tech's Comments VERIFIED VBG pH 7.36 VBG pCO2 26 VBG pO2 49 VBG HCO3 15 L VBG O2 Saturation 76.0 VBG Base Excess -8.5 Sodium 139 Potassium 3.8 Chloride 98 Carbon Dioxide 15 L Anion Gap 30 H BUN 106 H Creatinine 5.54 H* Estim Creat Clear Calc 9.9 Estimated GFR 8 Random Glucose 76 Calcium 8.2 L Phosphorus 9.3 H Magnesium 2.9 H Albumin 4.5 Microbiology Microbiology Results: Microbiology 08/26/23 13:39 Blood - Venous Blood Culture - Preliminary No growth after 48 hours. 08/26/23 13:39 Blood - Venous Blood Culture - Preliminary No growth after 48 hours. 08/18/23 21:45 Blood - Venous Blood Culture - Final Streptococcus pneumoniae 08/18/23 20:17 Blood - Venous Blood Culture - Final Streptococcus pneumoniae Procedures Date of Service Date of Service: 08/31/23 Assessment & Plan Assessment and plan (1) Septic shock due to Gram positive bacteria: Status: Inactive Plan Ms. 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 Course is complicated by BRE, and volume overload refractory to IV diuresis now requireing HD support Sero results noted IgGK ( known H/O going back > 1 year) Low C3 and C4: h/o CVDz but also raises quesof IM Cx GN assoc with infetion ( PIGN) Anca negative incr PLT makes TMA unlikley Etiology of BRE: most c/w sepsis assoc ATN with other possibilty being Glomerular disease given sarcoid and RA history is possible and now with low C3 C4 also raises ques of ( PIGN) as well REC: HD again today; then MWF track UOP trending up and metabolic; Watch for recovery may need to consider pros/cons of kidney Bx - depending on clinical course and if renal func does not improve s/p new temp HD cath> eventually Pcath once bld cult neg x 48 hrs if R. Func does not improve Repeat Blood c/s Time Spent With Patient Time: Total time managing care of this patient today ____ minutes. Progress Note: Quality Stroke Does the patient have a stroke diagnosis?: No
[2023-08-31 16:23] LABS: ABG Base Excess -0.1 mmol/L; ABG HCO3 20 mmol/L (22-26); ABG pCO2 24 mmHg (32-45); ABG pH 7.53 (7.35-7.45); ABG pO2 73 mmHg (83-108)
--- NOTE | 2023-08-31 16:53 | P.PNIM_ITS ---
Subjective Subjective Date of Service: 08/31/23 Interval History: 73-year-old female with sarcoidosis, rheumatoid arthritis, under chronic steroid and methotrexate treatment, and a history of MGUS. She initially presented on 08/18 with septic shock due to pneumonia, necessitating vasopressors and mechanical ventilation. She has been treated strep pneumo bacteremia . Her hospital stay has been complicated by renal failure associated with uremic encephalopathy, requiring dialysis. Extubation occurred on 08/29/23, and she was transferred out of the ICU today 08/31. She was evauated in the bedside in the presence of her daughter and best friend . The patient appeared highly anxious, breathing rapidly at around 33 breaths per minute; records indicated a respiratory rate of about 30 post-extubation. Current arterial blood gas readings showed a pH of 7.53. She is confused Review of Systems confusion Physical Exam 2 Vital Signs: Vital Signs: Last Vital Signs Temp 97.1 F 08/31/23 15:42 Pulse 113 H 08/31/23 15:42 Resp 32 H 08/31/23 15:42 BP 140/62 H 08/31/23 15:42 Pulse Ox 93 08/31/23 15:42 O2 Del Method Nasal Cannula 08/31/23 15:42 O2 Flow Rate 3 08/31/23 15:42 FiO2 30 08/29/23 13:00 BMI result Body Mass Index 30.2 Const: Other: General: alert, confused Resp: CTA bilateral CVS: S1,S2,RRR GI: +BS, NT, no distention Skin: No rash Neuro: motor grossly intact Psych: appropriate affect Objective Data Active Medications Acetaminophen (Acetaminophen 325 Mg Tablet) 650 mg PO Q6H PRN PRN Reason: Pain, Mild (Pain Scale 1-3) Last Admin: 08/30/23 18:31 Dose: 650 mg Documented By: AVRIL Albuterol Sulfate (Albuterol Sulfate (0.083%) 2.5 Mg/3 Ml Vial.Neb) 2.5 mg INHALE Q3H PRN PRN Reason: Wheezing Last Admin: 08/26/23 08:18 Dose: 2.5 mg Documented By: ROMA Artificial Tears (Artificial Tears 15 Ml Drops) 2 drop EYE-BOTH Q4H PRN PRN Reason: Dry Eyes Last Admin: 08/29/23 08:33 Dose: 2 drop Documented By: ESTEFANIA Dextrose (Dextrose 50 % 25 Gm/50 Ml Syringe) 25 gm IVPUSH Q15M PRN PRN Reason: per Hypoglycemia Standing Ord. Last Admin: 08/21/23 13:27 Dose: 25 gm Documented By: HAROON Glucose (Glucose Gel 15 Gm Gel..Gram.) 15 gm PO Q15M PRN PRN Reason: per Hypoglycemia Standing Ord. Last Admin: 08/19/23 16:40 Dose: 15 gm Documented By: AVRIL Heparin Sodium (Porcine) (Heparin Sodium,Porcine 5,000 Unit/Ml Vial) 5,000 unit SUBCUT Q8H [facility] Last Admin: 08/31/23 10:59 Dose: 5,000 unit Documented By: ESTEFANIA Lidocaine (Lidocaine 4 % Patch Adh..Patch) 2 patch TRANSDERMA DAILY [facility]; Protocol Last Admin: 08/31/23 08:48 Dose: 2 patch Documented By: ESTEFANIA Ondansetron HCl (Ondansetron Hcl 4 Mg/2 Ml Vial) 4 mg IVPUSH Q6H PRN PRN Reason: Nausea and Vomiting Last Admin: 08/20/23 19:24 Dose: 4 mg Documented By: PRATEEK Prednisone (Prednisone 10 Mg Tablet) 10 mg PO DAILY [facility] Last Admin: 08/31/23 08:48 Dose: 10 mg Documented By: ESTEFANIA Labs 08/31/23 04:55 08/31/23 04:55 Labs: Laboratory Results - last 24 hr 08/31/23 08/31/23 08/31/23 04:55 04:57 16:16 MCV 90.7 MCH 29.8 MCHC 32.9 RDW 15.1 Plt Count 414 H MPV 11.5 Immature Gran % (Auto) 1.7 H Neut % (Auto) 68.7 Lymph % (Auto) 11.4 L [place] % (Auto) 16.8 H Eos % (Auto) 0.9 Baso % (Auto) 0.5 Lymph # (Auto) 1.2 [place] # (Auto) 1.8 H Eos # (Auto) 0.1 Baso # (Auto) 0.1 Abs Immat Gran (auto) 0.18 H Absolute Neuts (auto) 7.3 Absolute Nucleated RBC 0.030 H Nucleated RBC % (auto) 0.3 H Smear Tech's Comments VERIFIED O2 Saturation 94.0 ABG pH at Pt Temp 7.53 H ABG pCO2 at Pt Temp 24 L ABG pO2 at Pt Temp 73 L ABG HCO3 20 L ABG Base Excess (Actual) -0.1 VBG pH 7.36 VBG pCO2 26 VBG pO2 49 VBG HCO3 15 L VBG O2 Saturation 76.0 VBG Base Excess -8.5 Anion Gap 30 H Estim Creat Clear Calc 9.9 Estimated GFR 8 Random Glucose 76 Calcium 8.2 L Phosphorus 9.3 H Magnesium 2.9 H Albumin 4.5 Microbiology Microbiology Results: Microbiology 08/26/23 13:39 Blood Culture - Final Blood - Venous No growth after 5 days. 08/26/23 13:39 Blood Culture - Final Blood - Venous No growth after 5 days. Assessment and Plan (1) Uremic encephalopathy: Status: Acute (2) Streptococcal pneumonia: Status: Acute (3) Septic shock due to streptococcal infection: Status: Acute (4) BRE (acute kidney injury): Status: Acute Plan The 73-year-old female with rheumatoid arthritis, sarcoidosis, chronic steroid, and methotrexate use was admitted to the ICU due to septic shock, strep pneumonia bacteremia, and further complications in her hospital course included renal failure leading to uremia, requiring hemodialysis. Septic shock d/t strep pneumo pneumonia and bacteremia--treated in the ICU with combination of zosyn, vanco, Cefepime and Ceftriaxone for total of 10 days. Repeat blood cultures have been negative, and WBC which topped 30K is now normal. Acute hypoxic respriatory failure due to the above, required mechanical ventilation, extubated 08/29, now tachypnic, BRE d/t ATN from septic shock, Creatine was normal, middle of July, now she's requiring dialysis, Cr presently 5, Nephrology managing dialysis Encephalopathy, metabolic in nature, likely from multifactorial, septic shock, uremia, medication. Minimize sedative, narc, benzo and address underlying issues. History of HTN, lisinoril on hold, BP acceptable History of RA, sarcoid, continue Prednisone 10 mg daily Respiratory Alkalosis d/t tachypnea, ? compensation metabolic acidosis from renal failure Quality Stroke Does the patient have a stroke diagnosis?: No VTE Prior VTE?: No VTE Risk Level:: Medical - moderate - high VTE Device Contraindication: N/A - Device Ordered VTE Drug Contraindication: Treatment Not Tolerated
[2023-08-31 18:49] LABS: ABG Refer to POC result
--- NOTE | 2023-08-31 19:04 | PM.EVENT ---
Event Note Date of Service: 08/31/23 Event Note: Patient reassessed with RN, while attempted to feed her she was coughing and likely aspirating, will make NPO and request swallow eval tomorrow. She more comfortable, less tachypnic than earlier. I updated her that that we will be keeping close eye on her and should her change, there will be no hesitation to send her back to the ICU Time Spent With Patient Time: Total time managing care of this patient today ____ minutes.
[2023-08-31 20:14] LABS: Glucose, Whole Blood 103 mg/dL (60-115)
[2023-08-31 20:35] LABS: MANUAL DIFF FLAG NO
[2023-08-31 20:39] LABS: VBG Base Excess -0.5 mmol/L; VBG HCO3 20 mmol/L (22-26); VBG pCO2 24 mmHg; VBG pH 7.52 (7.32-7.43); VBG pO2 53 mmHg
[2023-08-31 20:40] LABS: Venous Blood Gas Refer to POC result
[2023-08-31 20:47] LABS: Lactic Acid 1.2 mmol/L (0.5-2.0)
[2023-08-31 20:52] LABS: Anion Gap 26 (12-20); Blood Urea Nitrogen 47 mg/dL (9-16); Calcium 8.8 mg/dL (8.4-10.2); Carbon Dioxide 18 mmol/L (22-29); Chloride 96 mmol/L (96-108); Creatinine Clr Calc Pharmacy 16.3; Estimated Glomerular Filt Rate 13; Glucose Random 94 mg/dL (60-115); Potassium 4.1 mmol/L (3.3-5.1); Sodium 136 mmol/L (135-145)
[2023-08-31 20:56] LABS: Basophils Percent Auto 0.3 % (0-2); Eosinophils Percent Auto 0.1 % (0-4); Hematocrit 31.3 % (37.0-47.0); Hemoglobin 10.4 g/dl (12.0-16.0); Imm Gran Abs Auto 0.15 X10*3/uL (0.00-0.03); Imm Gran Pct Auto 1.7 % (0.0-0.4); Mean Corpuscular HGB Conc 33.2 g/dl (31.0-35.0); Mean Corpuscular Hemoglobin 29.3 pg (27.0-33.0); Mean Corpuscular Volume 88.2 fL (80.0-98.0); Mean Platelet Volume 11.7 fL (9.4-12.3); Monocytes Absolute Auto 1.4 X10*3/uL (0.1-1.2); Monocytes Percent Auto 15.5 % (2-11); NRBC Pct Auto 0.2 /100WBC (0.0-0.2); Neutrophils Absolute Auto 6.5 x10*3/uL (2.0-8.3); Neutrophils Percent Auto 71.4 % (45-73); Platelet Count 356 X10*3/uL (160-400); Red Blood Count 3.55 X10*6/uL (4.20-5.50); Red Cell Distribution Width 14.8 % (11.0-16.0); White Blood Count 9.1 X10*3/uL (4.8-10.8)
[2023-09-01] VITALS (7 sets, daily range): BP systolic 104–156; BP diastolic 46–89; PULSE 96–105; RESP 17–20; TEMP 37.4–37.9; O2SAT 92–96; BMI 29.5
[2023-09-01] MEDS: Heparin Sodium,Porcine 5,000 UNIT/ML VIAL 5000 UNIT SUBCUT ×3 (02:04→17:46)
--- NOTE | 2023-09-01 05:28 | PC.NURSE ---
Received in report by previous RN that they were questioning if patient aspirated? Pt was made NPO at that time. Upon initial assessment at approximately 1900- Family at bedside. Pt alert, confused/disoriented, soft-spoken, does not answer questions appropriately, unable to follow commands, CROW weakly. Pt appears fatigued, increased WOB, RR 24, sating 90% on 4L NC, lungs dim in bases, weak dry cough. HR 100-120s, BP 98/52, rectal temp 101.9. Ice packs applied to pt, O2 increased to 5L NC. notified. Dr Toledo at bedside to assess pt. Stat Chest XR and labs ordered- see report. updated- no new orders at this time. Upon reassessment- pt still alert, confused/disoriented. Breathing is even and unlabored. RR 20. Sating >92% on 5L NC. HR 100-110. BP stable. Temp trending down, 100.2 rectally at 0400.
[2023-09-01] MEDS: Piperacillin Sodium/Tazobactam 4.5 GM in 0.9 % Sodium Chloride 100 ML IV ×2 (06:34→15:47)
[2023-09-01 06:46] LABS: Basophils Absolute Auto 0.1 X10*3/uL (0.0-0.2); Basophils Percent Auto 0.5 % (0-2); Eosinophils Percent Auto 0.1 % (0-4); Hematocrit 30.8 % (37.0-47.0); Hemoglobin 10.1 g/dl (12.0-16.0); Imm Gran Abs Auto 0.15 X10*3/uL (0.00-0.03); Imm Gran Pct Auto 1.6 % (0.0-0.4); Lymphocytes Absolute Auto 1.2 X10*3/uL (1.2-4.9); Lymphocytes Percent Auto 12.8 % (20-40); MANUAL DIFF FLAG SCAN; Mean Corpuscular HGB Conc 32.8 g/dl (31.0-35.0); Mean Corpuscular Hemoglobin 29.3 pg (27.0-33.0); Mean Corpuscular Volume 89.3 fL (80.0-98.0); Mean Platelet Volume 11.5 fL (9.4-12.3); Monocytes Absolute Auto 1.8 X10*3/uL (0.1-1.2); Monocytes Percent Auto 18.5 % (2-11); Neutrophils Absolute Auto 6.4 x10*3/uL (2.0-8.3); Neutrophils Percent Auto 66.5 % (45-73); Platelet Count 346 X10*3/uL (160-400); Red Blood Count 3.45 X10*6/uL (4.20-5.50); Red Cell Distribution Width 14.6 % (11.0-16.0); SCAN SMEAR FLAG 1; White Blood Count 9.6 X10*3/uL (4.8-10.8)
[2023-09-01 07:08] LABS: SLIDE REVIEW VERIFIED
[2023-09-01 07:18] LABS: Albumin Level 4.8 g/dL (3.5-5.0); Anion Gap 28 (12-20); Blood Urea Nitrogen 67 mg/dL (9-16); Carbon Dioxide 17 mmol/L (22-29); Chloride 95 mmol/L (96-108); Creatinine Clr Calc Pharmacy 12.6; Estimated Glomerular Filt Rate 10; Glucose Random 102 mg/dL (60-115); Magnesium 2.7 mg/dL (1.6-2.6); Phosphorus 6.3 mg/dL (2.7-4.5); Potassium 4.1 mmol/L (3.3-5.1); Sodium 136 mmol/L (135-145)
[2023-09-01] MEDS: Lidocaine 4 % Patch ADH..PATCH 2 PATCH TRANSDERMA (08:00)
[2023-09-01] MEDS: methylPREDNISolone Sod Succ 40 MG/ML VIAL 8 MG IVPUSH (08:02)
[2023-09-01] MEDS: Acetaminophen Supp 650 MG SUPP.RECT PR ×2 (08:02→22:16)
--- NOTE | 2023-09-01 09:02 | P.PNNP_ITS ---
Subjective Subjective Date of Service: 09/01/23 Interval history: 73-year-old female with sarcoidosis, rheumatoid arthritis, under chronic steroid and methotrexate treatment, and a history of MGUS. She initially presented on 08/18 with septic shock due to pneumonia, necessitating vasopressors and mechanical ventilation. She has been treated strep pneumo bacteremia . Her hospital stay has been complicated by renal failure associated with uremic encephalopathy, requiring dialysis. Extubation occurred on 08/29/23, and she was transferred out of the ICU today 08/31. Urine output is low Physical Exam 2 Vital Signs: Vital Signs: Last Vital Signs Temp 100.2 F 09/01/23 04:00 Pulse 105 H 09/01/23 07:33 Resp 18 09/01/23 07:33 BP 131/64 09/01/23 07:33 Pulse Ox 95 09/01/23 07:33 O2 Del Method Nasal Cannula 09/01/23 07:33 O2 Flow Rate 5 09/01/23 07:33 FiO2 30 08/29/23 13:00 BMI result Body Mass Index 29.5 Const: Other: General: alert, confused Resp: CTA bilateral CVS: S1,S2,RRR GI: +BS, NT, no distention Skin: No rash Neuro: motor grossly intact Psych: appropriate affect Objective Data Labs 09/01/23 06:30 09/01/23 06:30 Labs: Laboratory Results - last 24 hr 08/31/23 08/31/23 08/31/23 16:16 20:03 20:30 WBC 9.1 RBC 3.55 L Hgb 10.4 L Hct 31.3 L MCV 88.2 MCH 29.3 MCHC 33.2 RDW 14.8 Plt Count 356 MPV 11.7 Immature Gran % (Auto) 1.7 H Neut % (Auto) 71.4 Lymph % (Auto) 11.0 L [place] % (Auto) 15.5 H Eos % (Auto) 0.1 Baso % (Auto) 0.3 Lymph # (Auto) 1.0 L [place] # (Auto) 1.4 H Eos # (Auto) 0.0 Baso # (Auto) 0.0 Abs Immat Gran (auto) 0.15 H Absolute Neuts (auto) 6.5 Absolute Nucleated RBC 0.020 H Nucleated RBC % (auto) 0.2 Smear Tech's Comments O2 Saturation 94.0 ABG pH at Pt Temp 7.53 H ABG pCO2 at Pt Temp 24 L ABG pO2 at Pt Temp 73 L ABG HCO3 20 L ABG Base Excess (Actual) -0.1 VBG pH VBG pCO2 VBG pO2 VBG HCO3 VBG O2 Saturation VBG Base Excess Sodium 136 Potassium 4.1 Chloride 96 Carbon Dioxide 18 L Anion Gap 26 H BUN 47 H Creatinine 3.36 H Estim Creat Clear Calc 16.3 Estimated GFR 13 POC Glucose 103 Random Glucose 94 Lactic Acid 1.2 Calcium 8.8 D Phosphorus Magnesium Albumin 08/31/23 09/01/23 20:33 06:30 WBC 9.6 RBC 3.45 L Hgb 10.1 L Hct 30.8 L MCV 89.3 MCH 29.3 MCHC 32.8 RDW 14.6 Plt Count 346 MPV 11.5 Immature Gran % (Auto) 1.6 H Neut % (Auto) 66.5 Lymph % (Auto) 12.8 L [place] % (Auto) 18.5 H Eos % (Auto) 0.1 Baso % (Auto) 0.5 Lymph # (Auto) 1.2 [place] # (Auto) 1.8 H Eos # (Auto) 0.0 Baso # (Auto) 0.1 Abs Immat Gran (auto) 0.15 H Absolute Neuts (auto) 6.4 Absolute Nucleated RBC 0.000 Nucleated RBC % (auto) 0.0 Smear Tech's Comments VERIFIED O2 Saturation ABG pH at Pt Temp ABG pCO2 at Pt Temp ABG pO2 at Pt Temp ABG HCO3 ABG Base Excess (Actual) VBG pH 7.52 H VBG pCO2 24 VBG pO2 53 VBG HCO3 20 L VBG O2 Saturation 85.0 VBG Base Excess -0.5 Sodium 136 Potassium 4.1 Chloride 95 L Carbon Dioxide 17 L Anion Gap 28 H BUN 67 H Creatinine 4.30 H* Estim Creat Clear Calc 12.6 Estimated GFR 10 POC Glucose Random Glucose 102 Lactic Acid Calcium 9.0 Phosphorus 6.3 H Magnesium 2.7 H Albumin 4.8 Microbiology Microbiology Results: Microbiology 08/26/23 13:39 Blood - Venous Blood Culture - Final No growth after 5 days. 08/26/23 13:39 Blood - Venous Blood Culture - Final No growth after 5 days. 08/18/23 21:45 Blood - Venous Blood Culture - Final Streptococcus pneumoniae 08/18/23 20:17 Blood - Venous Blood Culture - Final Streptococcus pneumoniae Procedures Date of Service Date of Service: 09/01/23 Assessment & Plan Assessment and plan (1) Septic shock due to Gram positive bacteria: Status: Inactive Plan Ms. 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 Course is complicated by BRE, and volume overload refractory to IV diuresis now requireing HD support Sero results noted IgGK ( known H/O going back > 1 year) Low C3 and C4: h/o CVDz but also raises quesof IM Cx GN assoc with infetion ( PIGN) Anca negative incr PLT makes TMA unlikley Etiology of BRE: most c/w sepsis assoc ATN with other possibilty being Glomerular disease given sarcoid and RA history is possible and now with low C3 C4 also raises ques of ( PIGN) as well REC: Had HD yesterday Will keep MWF schedule Track UOP Watch for recovery May need to consider pros/cons of kidney Bx - depending on clinical course s/p new temp HD cath> eventually Pcath once bld cult neg x 48 hrs if R. Func does not improve f/u Repeat Blood c/s Avoid nephrotoxoins Time Spent With Patient Time: Total time managing care of this patient today ____ minutes. Progress Note: Quality Stroke Does the patient have a stroke diagnosis?: No
--- NOTE | 2023-09-01 13:17 | MHC.SL.SWA ---
Speech Pathologist Impression: Risk of Aspiration Due to: Lethargy Medically Fragile History of Pneumonia Poor PO Intake Hx of Recent Extubation Weak Cough Weak Voice Dysphasia Diet Status: Liquid Consistency and Strategies for Safe Swallow: Liquid Intake Recommendation: [place] Thick Liquid Intake Strategies: Small Sips Solid Food Consistency: Dietary Recommendations: Pureed (NDD1) Oral Medication Intake: Crushed with Puree Please contact the pharmacy regarding appropriate crushable or liquid drug formulations that are available whenever modified delivery is recommended. Compensatory Strategies and Precautions to be Taken for Safe Swallow: Sitting Upright (90 deg) No Straw Small Bites and Sips Alternate Liquids/Solids Rate of Ingestion Change Oral Check Avoid Specific Foods Supervision While Eating and Drinking for Safe Swallow: Total Assistance (1:1) Foods to Avoid: Mixed consistencies, overly sticky purees. Swallowing Recommended Treatments: Compens. Strategy Educat. Recommendation for Speech: Inpatient Speech Therapy Speech Therapy through [facility] Speech Therapy through Rehab Facility Comment: Recommending Pt START diet of PUREE SOLIDS (NDD1) and NECTAR-THICK LIQUIDS. Medications CRUSHED in PUREE or IV where possible. Pt requires 1:1 feeding assistance at this time. MAINTAIN ASPIRATION PRECAUTIONS with ALL PO. Frequency/Duration: Daily Timeline to reassess: PRN Buckle Coverer Clinican/Clinical Fellow: Yes Supervisory Statement: I have reviewed and agree with the student/clinical fellow's documentation: N/A Speech Language Pathologist: Davon Garcia M.A., CCC-SITE LEAD
[2023-09-01] MEDS: HYDROmorphone HCl 0.5 MG/0.5 ML SYRINGE 0.25 MG IVPUSH ×2 (13:35→17:42)
--- NOTE | 2023-09-01 14:35 | P.PNIM_ITS ---
Subjective Subjective Date of Service: 09/02/23 Interval History: patient is awake alert, is at bedside, patient is not verbalizing due to sore throat, also confused, at times answers questions appropriately with clear voice, recognized friend with her name, saying all her meds are in the portal, temp 100.2 degrees rectally, oxygenation 92% on 2 L, not on home oxygen blood pressure trending up. Review of Systems unable to obtain review of system due to mental status. Physical Exam 2 Vital Signs: Vital Signs: Last Vital Signs Temp 99.8 F 09/01/23 11:31 Pulse 101 H 09/01/23 11:31 Resp 20 09/01/23 11:31 BP 148/73 H 09/01/23 11:31 Pulse Ox 92 09/01/23 11:31 O2 Del Method Nasal Cannula 09/01/23 11:31 O2 Flow Rate 5 09/01/23 11:31 FiO2 30 08/29/23 13:00 BMI result Body Mass Index 29.5 Const: Other: General awake alert, pleasantly confused Neck supple no JVD. CVS regular rate rhythm, Respiratory lungs clear to auscultation, no respiratory distress, no wheeze, no rhonchi. Gastrointestinal abdomen soft, non tender, bowel sounds audible, no guarding , no rigidity. Extremities no edema. Neuro moving all 4 extremity ,speech clear. Skin discolration dorsum of both hands, dry scab on forearms Objective Data Active Medications Acetaminophen (Acetaminophen 325 Mg Tablet) 650 mg PO Q6H PRN PRN Reason: Pain, Mild (Pain Scale 1-3) Last Admin: 08/30/23 18:31 Dose: 650 mg Documented By: AVRIL Acetaminophen (Acetaminophen Supp 650 Mg Supp.Rect) 650 mg [place] Q6H PRN PRN Reason: Pain, Mild (Pain Scale 1-3) Last Admin: 09/01/23 08:02 Dose: 650 mg Documented By: WASHINGTON Albuterol Sulfate (Albuterol Sulfate (0.083%) 2.5 Mg/3 Ml Vial.Neb) 2.5 mg INHALE Q3H PRN PRN Reason: Wheezing Last Admin: 08/26/23 08:18 Dose: 2.5 mg Documented By: ROMA Artificial Tears (Artificial Tears 15 Ml Drops) 2 drop EYE-BOTH Q4H PRN PRN Reason: Dry Eyes Last Admin: 08/29/23 08:33 Dose: 2 drop Documented By: ESTEFANIA Dextrose (Dextrose 50 % 25 Gm/50 Ml Syringe) 25 gm IVPUSH Q15M PRN PRN Reason: per Hypoglycemia Standing Ord. Last Admin: 08/21/23 13:27 Dose: 25 gm Documented By: HAROON Glucose (Glucose Gel 15 Gm Gel..Gram.) 15 gm PO Q15M PRN PRN Reason: per Hypoglycemia Standing Ord. Last Admin: 08/19/23 16:40 Dose: 15 gm Documented By: AVRIL Heparin Sodium (Porcine) (Heparin Sodium,Porcine 5,000 Unit/Ml Vial) 5,000 unit SUBCUT Q8H SANDRA Last Admin: 09/01/23 11:56 Dose: 5,000 unit Documented By: WASHINGTON Hydromorphone HCl (Hydromorphone Hcl 0.5 Mg/0.5 Ml Syringe) 0.25 mg IVPUSH Q4H PRN; Protocol PRN Reason: Pain, Severe (Pain Scale 7-10) Last Admin: 09/01/23 13:35 Dose: 0.25 mg Documented By: WASHINGTON Piperacillin Sod/Tazobactam (Sod 4.5 gm/ Sodium Chloride) 100 mls @ 200 mls/hr IV Q12H [facility] Last Infusion: 09/01/23 07:32 Dose: Infused Documented By: WASHINGTON Lidocaine (Lidocaine 4 % Patch Adh..Patch) 2 patch TRANSDERMA DAILY SANDRA; Protocol Last Admin: 09/01/23 08:00 Dose: 2 patch Documented By: WASHINGTON Methylprednisolone Sodium Succinate (Methylprednisolone Sod Succ 40 Mg/Ml Vial) 8 mg IVPUSH Q24H SANDRA Last Admin: 09/01/23 08:02 Dose: 8 mg Documented By: WASHINGTON Ondansetron HCl (Ondansetron Hcl 4 Mg/2 Ml Vial) 4 mg IVPUSH Q6H PRN PRN Reason: Nausea and Vomiting Last Admin: 08/20/23 19:24 Dose: 4 mg Documented By: PRATEEK Labs 09/01/23 06:30 09/01/23 06:30 Labs: Laboratory Results - last 24 hr 08/31/23 08/31/23 08/31/23 16:16 20:03 20:30 MCV 88.2 MCH 29.3 MCHC 33.2 RDW 14.8 Plt Count 356 MPV 11.7 Immature Gran % (Auto) 1.7 H Neut % (Auto) 71.4 Lymph % (Auto) 11.0 L Hughes % (Auto) 15.5 H Eos % (Auto) 0.1 Baso % (Auto) 0.3 Lymph # (Auto) 1.0 L Hughes # (Auto) 1.4 H Eos # (Auto) 0.0 Baso # (Auto) 0.0 Abs Immat Gran (auto) 0.15 H Absolute Neuts (auto) 6.5 Absolute Nucleated RBC 0.020 H Nucleated RBC % (auto) 0.2 Smear Tech's Comments O2 Saturation 94.0 ABG pH at Pt Temp 7.53 H ABG pCO2 at Pt Temp 24 L ABG pO2 at Pt Temp 73 L ABG HCO3 20 L ABG Base Excess (Actual) -0.1 VBG pH VBG pCO2 VBG pO2 VBG HCO3 VBG O2 Saturation VBG Base Excess Anion Gap 26 H Estim Creat Clear Calc 16.3 Estimated GFR 13 POC Glucose 103 Random Glucose 94 Lactic Acid 1.2 Calcium 8.8 D Phosphorus Magnesium Albumin 08/31/23 09/01/23 20:33 06:30 MCV 89.3 MCH 29.3 MCHC 32.8 RDW 14.6 Plt Count 346 MPV 11.5 Immature Gran % (Auto) 1.6 H Neut % (Auto) 66.5 Lymph % (Auto) 12.8 L Hughes % (Auto) 18.5 H Eos % (Auto) 0.1 Baso % (Auto) 0.5 Lymph # (Auto) 1.2 Hughes # (Auto) 1.8 H Eos # (Auto) 0.0 Baso # (Auto) 0.1 Abs Immat Gran (auto) 0.15 H Absolute Neuts (auto) 6.4 Absolute Nucleated RBC 0.000 Nucleated RBC % (auto) 0.0 Smear Tech's Comments VERIFIED O2 Saturation ABG pH at Pt Temp ABG pCO2 at Pt Temp ABG pO2 at Pt Temp ABG HCO3 ABG Base Excess (Actual) VBG pH 7.52 H VBG pCO2 24 VBG pO2 53 VBG HCO3 20 L VBG O2 Saturation 85.0 VBG Base Excess -0.5 Anion Gap 28 H Estim Creat Clear Calc 12.6 Estimated GFR 10 POC Glucose Random Glucose 102 Lactic Acid Calcium 9.0 Phosphorus 6.3 H Magnesium 2.7 H Albumin 4.8 Microbiology Microbiology Results: Microbiology 08/26/23 13:39 Blood Culture - Final Blood - Venous No growth after 5 days. 08/26/23 13:39 Blood Culture - Final Blood - Venous No growth after 5 days. Assessment and Plan (1) Uremic encephalopathy: Status: Acute (2) Streptococcal pneumonia: Status: Acute (3) Septic shock due to streptococcal infection: Status: Acute (4) BRE (acute kidney injury): Status: Acute Plan The 73-year-old female with rheumatoid arthritis, sarcoidosis, chronic steroid, and methotrexate use was admitted to the ICU due to septic shock, strep pneumonia bacteremia, and further complications in her hospital course included renal failure leading to uremia, requiring hemodialysis. Septic shock d/t strep pneumo pneumonia and bacteremia--treated in the ICU with combination of zosyn, vanco, Cefepime and Ceftriaxone for total of 10 days. Repeat blood cultures have been negative, and WBC has normalized. Acute hypoxic respriatory failure due to the above, required mechanical ventilation, extubated 08/29, noted to be tachypneic on 08/31 now resolved will wean oxygen patient not on home O2. Fever noted to have a fever of 101.9 last evening chest x-ray obtained showed atelectasis otherwise no acute abnormality, empirically placed on IV Zosyn will follow repeat blood cultures and clinical status closely. BRE d/t ATN from septic shock, Creatinine was normal, middle of July, now requiring dialysis, case discussed with Nephrology they recommend Perma cath placement on , order placed patient with underlying history of MGUS will need renal biopsy when clinically stable as per Nephro. acute toxic metabolic Encephalopathy, likely multifactorial, septic shock, uremia, medication. Minimize sedative, narc, benzo and address underlying issues. History of HTN, lisinopril on hold, BP gradually trending up if noted to have persistent elevated BP will resume lisinopril low-dose History of RA, sarcoid, continue iv steroid hold immunosuppressant. Respiratory Alkalosis d/t tachypnea, ? compensation metabolic acidosis from renal failure. mood disorder resume Wellbutrin 75 mg b.i.d. disposition evaluated by Physical therapy they recommend short-term rehab patient will need continued inpatient hospitalization for requirement of PermCath for continued hemodialysis and also close clinical follow-up for fevers and acute persistent encephalopathy Quality Stroke Does the patient have a stroke diagnosis?: No VTE Prior VTE?: No VTE Risk Level:: Medical - moderate - high VTE Device Contraindication: N/A - Device Ordered VTE Drug Contraindication: Treatment Not Tolerated
--- NOTE | 2023-09-01 14:41 | HO.RADPN ---
RADIOLOGY Narrative Narrative: Procedure Note: 1. CT drainage of mid pelvic abscess 2. CT drainage of deep pelvic abscess Events/Findin. 10 fr drain placed into mid pelvic abscess- 60 cc thick purulent/feculent fluid removed and sent for culture 2. 10 fr transgluteal drain placed into deep pelvic abscess anterior to rectum. 30 cc purulent fluid removed and sent for culture No immediate complications Willie BOYD Interventional Radiology
--- NOTE | 2023-09-01 14:54 | MHC.CM.PN ---
Addendum entered by Preeti Thomas 09/01/23 15:03: Return call received from pts Amber, acute rehab information given to him and he will discuss with his daughter Torrie. Original Note: EMR reviewed and per MD rounds, pt is not medically cleared for D/C due to pending blood cultures, continues on HD with nephrology following, PT and Speech eval done today. PT recommends acute rehab. This CM met with pt to discuss, but pt unable to answer, seemed to understand that rehab has been recommended, not able to indicate a preference in facilities. This CM called pts Andrei at [phone], voicemail left. This CM called pts daughter Torrie at [phone], voicemail left. Referrals placed to 3 local acute rehabs via [facility], and they are following. CM will continue to follow.
[2023-09-01] MEDS: Acetaminophen 325 MG TABLET 650 MG PO (15:48)
[2023-09-01] MEDS: buPROPion HCL 75 MG TABLET PO (22:17)
[2023-09-02] VITALS (8 sets, daily range): BP systolic 127–158; BP diastolic 67–81; PULSE 90–103; RESP 20–40; TEMP 36.2–37.5; O2SAT 93–95
[2023-09-02] MEDS: Heparin Sodium,Porcine 5,000 UNIT/ML VIAL 5000 UNIT SUBCUT ×3 (03:04→17:42)
[2023-09-02] MEDS: Piperacillin Sodium/Tazobactam 4.5 GM in 0.9 % Sodium Chloride 100 ML IV ×2 (06:29→17:41)
[2023-09-02] MEDS: methylPREDNISolone Sod Succ 40 MG/ML VIAL 8 MG IVPUSH (09:08)
[2023-09-02] MEDS: buPROPion HCL 75 MG TABLET PO ×2 (09:09→20:29)
[2023-09-02] MEDS: Lidocaine 4 % Patch ADH..PATCH 2 PATCH TRANSDERMA (09:09)
--- NOTE | 2023-09-02 09:58 | MHC.SL.SWA ---
Speech Pathologist Impression: Risk of aspiration, oropharyngeal dysphagia Risk of Aspiration Due to: Lethargy Medically Fragile History of Pneumonia Poor PO Intake Hx of Recent Extubation Weak Cough Weak Voice Dysphasia Diet Status: No changes at this time Liquid Consistency and Strategies for Safe Swallow: Liquid Intake Recommendation: [place] Thick Liquid Intake Strategies: Small Sips No Straws Solid Food Consistency: Dietary Recommendations: Pureed (NDD1) Oral Medication Intake: Crushed with Puree Please contact the pharmacy regarding appropriate crushable or liquid drug formulations that are available whenever modified delivery is recommended. Compensatory Strategies and Precautions to be Taken for Safe Swallow: Sitting Upright (90 deg) No Straw Small Bites and Sips Alternate Liquids/Solids Rate of Ingestion Change Oral Check Avoid Specific Foods Supervision While Eating and Drinking for Safe Swallow: Total Assistance (1:1) Foods to Avoid: Mixed consistencies, overly sticky purees. Swallowing Recommended Treatments: Compens. Strategy Educat. Recommendation for Speech: Inpatient Speech Therapy Speech Therapy through [facility] Speech Therapy through Rehab Facility Comment: Recommending Pt START diet of PUREE SOLIDS (NDD1) and NECTAR-THICK LIQUIDS. Medications CRUSHED in PUREE or IV where possible. Pt requires 1:1 feeding assistance at this time. MAINTAIN ASPIRATION PRECAUTIONS with ALL PO. Frequency/Duration: Daily Date Range for Service Req: Timeline to reassess: PRN Business Communications Instructor Clinican/Clinical Fellow: Yes Supervisory Statement: I have reviewed and agree with the student/clinical fellow's documentation: N/A Speech Language Pathologist: Pauline Avila M.A., CCC-HYPERBARIC WELDER DIVER
--- NOTE | 2023-09-02 10:51 | MHC.CLN ---
F/U PO INTAKE VARIABLE DIET RX: PUREED WITH NT LIQ-APPROPRIATE PULPER TENDER FOLLOWING FOR APPROPRIATE CONSISTENCY CONTINUES WITH HEMODIALYSIS-CAN GIVE LOW PHOS DIET IF NEEDED MONITOR FOR PO INTAKE AND DIET TOLERANCE
--- NOTE | 2023-09-02 12:26 | P.PNNP_ITS ---
Subjective Subjective Date of Service: 09/02/23 Interval history: patient is awake alert, patient is not verbalizing due to sore throat, also confused, at times 73-year-old female with sarcoidosis, rheumatoid arthritis, under chronic steroid and methotrexate treatment, and a history of MGUS. She initially presented on 08/18 with septic shock due to pneumonia, necessitating vasopressors and mechanical ventilation. She has been treated strep pneumo bacteremia . Her hospital stay has been complicated by renal failure associated with uremic encephalopathy, requiring dialysis. Extubation occurred on 08/29/23, and she was transferred out of the ICU 08/31. Urine output is low Physical Exam 2 Vital Signs: Vital Signs: Last Vital Signs Temp 99.1 F 09/02/23 11:12 Pulse 97 09/02/23 11:12 Resp 20 09/02/23 11:12 BP 148/78 H 09/02/23 11:12 Pulse Ox 94 09/02/23 11:12 O2 Del Method Nasal Cannula 09/02/23 11:12 O2 Flow Rate 4.5 09/02/23 11:12 FiO2 30 08/29/23 13:00 BMI result Body Mass Index 29.5 confused fatuged cvs: s1s2 Rs; scattered ronchi abd: soft Left IJ temp dialysis access Objective Data Labs 09/01/23 06:30 09/01/23 06:30 Microbiology Microbiology Results: Microbiology 09/01/23 06:30 Blood - Venous Blood Culture - Preliminary No growth after 24 hours. 09/01/23 06:30 Blood - Venous Blood Culture - Preliminary No growth after 24 hours. 08/26/23 13:39 Blood - Venous Blood Culture - Final No growth after 5 days. 08/26/23 13:39 Blood - Venous Blood Culture - Final No growth after 5 days. 08/18/23 21:45 Blood - Venous Blood Culture - Final Streptococcus pneumoniae 08/18/23 20:17 Blood - Venous Blood Culture - Final Streptococcus pneumoniae Procedures Date of Service Date of Service: 09/02/23 Assessment & Plan Assessment and plan (1) Septic shock due to streptococcal infection: Status: Acute (2) BRE (acute kidney injury): Status: Acute (3) MGUS (monoclonal gammopathy of unknown significance): Status: Acute (4) Rheumatoid arthritis involving multiple joints: Status: Acute Plan Ms. 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 Course is complicated by BRE, and volume overload refractory to IV diuresis now requiring HD support Sero results noted IgGK ( known H/O going back > 1 year) Low C3 and C4: h/o CVDz but also raises question of Immune complex GN assoc with infetion ( PIGN) Anca negative incr PLT makes TMA unlikley Etiology of BRE: most c/w sepsis assoc ATN with other possibilty being Glomerular disease given sarcoid and RA history is possible and now with low C3 C4 also raises question of ( PIGN) as well REC: Will keep TTS schedule - as no significant recovery in the last 24 hrs Track UOP Watch for recovery May need to consider pros/cons of kidney Bx - depending on clinical course s/p new temp HD cath> eventually Pcath once bld cult neg x 48 hrs if R. Func does not improve f/u Repeat Blood c/s Avoid nephrotoxoins Time Spent With Patient Time: Total time managing care of this patient today ____ minutes. Progress Note: Quality Stroke Does the patient have a stroke diagnosis?: No
--- NOTE | 2023-09-02 14:43 | P.PNIM_ITS ---
Subjective Subjective Date of Service: 09/03/23 Interval History: being followed for acute encephalopathy transferred from ICU after being treated for strep pneumo sepsis and bacteremia. no change in clinical condition in last 24 hours communicating with soft voice Review of Systems unable to obtain due to mental status. Physical Exam 2 Vital Signs: Vital Signs: Last Vital Signs Temp 99.1 F 09/02/23 11:12 Pulse 97 09/02/23 11:12 Resp 20 09/02/23 11:12 BP 148/78 H 09/02/23 11:12 Pulse Ox 94 09/02/23 11:12 O2 Del Method Nasal Cannula 09/02/23 11:12 O2 Flow Rate 4.5 09/02/23 11:12 FiO2 30 08/29/23 13:00 BMI result Body Mass Index 29.5 Const: Other: General awake alert, pleasantly confused Neck supple no JVD. CVS regular rate rhythm, Respiratory lungs clear to auscultation, no respiratory distress, no wheeze, no rhonchi. Gastrointestinal abdomen soft, non tender, bowel sounds audible, no guarding , no rigidity. Extremities no edema. Neuro moving all 4 extremity ,speech clear. Skin discolration dorsum of both hands, dry scab on forearms Objective Data Active Medications Acetaminophen (Acetaminophen 325 Mg Tablet) 650 mg PO Q6H PRN PRN Reason: Pain, Mild (Pain Scale 1-3) Last Admin: 09/01/23 15:48 Dose: 650 mg Documented By: WASHINGTON Acetaminophen (Acetaminophen Supp 650 Mg Supp.Rect) 650 mg [place] Q6H PRN PRN Reason: Pain, Mild (Pain Scale 1-3) Last Admin: 09/01/23 22:16 Dose: 650 mg Documented By: POLLY Albuterol Sulfate (Albuterol Sulfate (0.083%) 2.5 Mg/3 Ml Vial.Neb) 2.5 mg INHALE Q3H PRN PRN Reason: Wheezing Last Admin: 08/26/23 08:18 Dose: 2.5 mg Documented By: ROMA Artificial Tears (Artificial Tears 15 Ml Drops) 2 drop EYE-BOTH Q4H PRN PRN Reason: Dry Eyes Last Admin: 08/29/23 08:33 Dose: 2 drop Documented By: ESTEFANIA Bupropion HCl (Bupropion Hcl 75 Mg Tablet) 75 mg PO BID [facility] Last Admin: 09/02/23 09:09 Dose: 75 mg Documented By: HUNGMOBENJAMÍN Dextrose (Dextrose 50 % 25 Gm/50 Ml Syringe) 25 gm IVPUSH Q15M PRN PRN Reason: per Hypoglycemia Standing Ord. Last Admin: 08/21/23 13:27 Dose: 25 gm Documented By: CLARYIMADominique Glucose (Glucose Gel 15 Gm Gel..Gram.) 15 gm PO Q15M PRN PRN Reason: per Hypoglycemia Standing Ord. Last Admin: 08/19/23 16:40 Dose: 15 gm Documented By: AVRIL Heparin Sodium (Porcine) (Heparin Sodium,Porcine 5,000 Unit/Ml Vial) 5,000 unit SUBCUT Q8H [facility] Last Admin: 09/02/23 09:24 Dose: 5,000 unit Documented By: DEEP Hydromorphone HCl (Hydromorphone Hcl 0.5 Mg/0.5 Ml Syringe) 0.25 mg IVPUSH Q4H PRN; Protocol PRN Reason: Pain, Severe (Pain Scale 7-10) Last Admin: 09/01/23 17:42 Dose: 0.25 mg Documented By: WASHINGTON Piperacillin Sod/Tazobactam (Sod 4.5 gm/ Sodium Chloride) 100 mls @ 200 mls/hr IV Q12H [facility] Last Infusion: 09/02/23 10:53 Dose: Infused Documented By: JEREL Lidocaine (Lidocaine 4 % Patch Adh..Patch) 2 patch TRANSDERMA DAILY [facility]; Protocol Last Admin: 09/02/23 09:09 Dose: 2 patch Documented By: HUNGMORP Methylprednisolone Sodium Succinate (Methylprednisolone Sod Succ 40 Mg/Ml Vial) 8 mg IVPUSH Q24H [facility] Last Admin: 09/02/23 09:08 Dose: 8 mg Documented By: HUNGMORP Ondansetron HCl (Ondansetron Hcl 4 Mg/2 Ml Vial) 4 mg IVPUSH Q6H PRN PRN Reason: Nausea and Vomiting Last Admin: 08/20/23 19:24 Dose: 4 mg Documented By: PRATEEK Labs 09/01/23 06:30 09/03/23 03:57 Microbiology Microbiology Results: Microbiology 09/01/23 06:30 Blood Culture - Preliminary Blood - Venous No growth after 24 hours. 09/01/23 06:30 Blood Culture - Preliminary Blood - Venous No growth after 24 hours. Assessment and Plan (1) Uremic encephalopathy: Status: Acute (2) Streptococcal pneumonia: Status: Acute (3) Septic shock due to streptococcal infection: Status: Acute (4) BRE (acute kidney injury): Status: Acute Plan The 73-year-old female with rheumatoid arthritis, sarcoidosis, chronic steroid, and methotrexate use was admitted to the ICU due to septic shock, strep pneumonia bacteremia, and further complications in her hospital course included renal failure leading to uremia, requiring hemodialysis. Septic shock d/t strep pneumo pneumonia and bacteremia--treated in the ICU with combination of zosyn, vanco, Cefepime and Ceftriaxone for total of 10 days. Repeat blood cultures have been negative, and WBC has normalized. Acute hypoxic respriatory failure due to the above, required mechanical ventilation, extubated 08/29, noted to be tachypneic on 08/31 now resolved will wean oxygen patient not on home O2. Fever noted to have a fever of 101.9 on 08/31 chest x-ray showed atelectasis otherwise no acute abnormality, empirically placed on IV Zosyn d2/5 days will follow repeat blood cultures and clinical status closely. no recurrent fevers since . BRE d/t ATN from septic shock, Creatinine was normal, middle of July, now requiring dialysis, case discussed with Nephrology they recommend Perma cath placement on , order placed patient with underlying history of MGUS will need renal biopsy when clinically stable as per Nephro. acute toxic metabolic Encephalopathy, likely multifactorial, septic shock, uremia, medication. Will avoid sedatives/benzos Continue hemodialysis. History of HTN, was on Norvasc and lisinopril currently on hold, BP gradually trending up if noted to have persistent elevated BP will resume lisinopril low- dose History of RA, sarcoid, continue iv steroid , hold immunosuppressant. Respiratory Alkalosis ? d/t tachypnea, and Anion gap metabolic acidosis likely due to renal failure will discuss with Nephrology. mood disorder restarted on Wellbutrin 75 mg b.i.d.on 09/01. disposition evaluated by Physical therapy they recommend short-term rehab patient will need continued inpatient hospitalization for requirement of PermCath for continued hemodialysis and also close clinical follow-up for fevers and acute persistent encephalopathy Quality Stroke Does the patient have a stroke diagnosis?: No VTE Prior VTE?: No VTE Risk Level:: Medical - moderate - high VTE Device Contraindication: N/A - Device Ordered VTE Drug Contraindication: Treatment Not Tolerated
--- NOTE | 2023-09-02 14:44 | MHC.CM.PN ---
EMR reviewed and per MD rounds, pt is not medically cleared for D/C due to pending permacath placement tomorrow. CM will continue to follow.
[2023-09-02] MEDS: Acetaminophen 325 MG TABLET 650 MG PO (20:29)
[2023-09-02] MEDS: HYDROmorphone HCl 0.5 MG/0.5 ML SYRINGE IVPUSH (21:11)
[2023-09-03] VITALS (21 sets, daily range): BP systolic 50–182; BP diastolic 25–97; PULSE 84–183; RESP 17–36; TEMP 34.1–37.8; O2SAT 70–97; BMI 28.3
--- NOTE | 2023-09-03 | ECG_ITS ---
Test Reason : t wave chages, tachy Blood Pressure : / mmHG Vent. Rate : 091 BPM Atrial Rate : 091 BPM P-R Int : 176 ms QRS Dur : 088 ms QT Int : 396 ms P-R-T Axes : 053 049 051 degrees QTc Int : 487 ms Normal sinus rhythm T wave abnormality, consider anterior ischemia Prolonged QTc Abnormal ECG When compared with ECG of 18-AUG-2023 22:13, ST no longer depressed in Anterior leads T wave amplitude has increased in Lateral leads Referred By: Brady William Electronically Signed By:Jeffrey Vela
[2023-09-03] MEDS: Heparin Sodium,Porcine 5,000 UNIT/ML VIAL 5000 UNIT SUBCUT ×3 (02:39→19:29)
[2023-09-03] MEDS: HYDROmorphone HCl 0.5 MG/0.5 ML SYRINGE 0.25 MG IVPUSH ×3 (02:40→19:44)
[2023-09-03] MEDS: Acetaminophen 325 MG TABLET 650 MG PO (03:09)
[2023-09-03 04:43] LABS: Anion Gap 38 (12-20); Blood Urea Nitrogen 143 mg/dL (9-16); Calcium 7.8 mg/dL (8.4-10.2); Carbon Dioxide 13 mmol/L (22-29); Chloride 98 mmol/L (96-108); Creatinine Clr Calc Pharmacy 7.4; Estimated Glomerular Filt Rate 5; Glucose Random 120 mg/dL (60-115); Potassium 5.6 mmol/L (3.3-5.1); Sodium 143 mmol/L (135-145)
[2023-09-03] MEDS: Piperacillin Sodium/Tazobactam 4.5 GM in 0.9 % Sodium Chloride 100 ML IV ×2 (05:19→19:29)
[2023-09-03] MEDS: methylPREDNISolone Sod Succ 40 MG/ML VIAL 8 MG IVPUSH (09:26)
[2023-09-03] MEDS: buPROPion HCL 75 MG TABLET PO (09:28)
[2023-09-03] MEDS: Lidocaine 4 % Patch ADH..PATCH 2 PATCH TRANSDERMA (09:28)
[2023-09-03] MEDS: Calcium Gluconate/NaCl,Iso-Osm 2 GM/100 ML PLAST..BAG IV (12:06)
--- NOTE | 2023-09-03 13:24 | MHC.SLORD ---
Speech Language Pathology Order Status: Patient NPO today for a procedure. MANAGER UNIX will continue to follow while inpatient.
--- NOTE | 2023-09-03 13:55 | P.PNNP_ITS ---
Subjective Subjective Date of Service: 09/03/23 Interval history: being followed for acute encephalopathy transferred from ICU after being treated for strep pneumo sepsis and bacteremia. no change in clinical condition in last 24 hours communicating with soft voice - uop 200-300ml Physical Exam 2 Vital Signs: Vital Signs: Last Vital Signs Temp 97 F 09/03/23 11:10 Pulse 95 09/03/23 11:10 Resp 18 09/03/23 11:10 BP 138/86 09/03/23 11:10 Pulse Ox 95 09/03/23 11:10 O2 Del Method Nasal Cannula 09/03/23 11:10 O2 Flow Rate 3 09/03/23 11:10 FiO2 30 08/29/23 13:00 BMI result Body Mass Index 28.3 confused, fatuged cvs: s1s2 Rs; scattered ronchi abd: soft Left IJ temp dialysis access Objective Data Labs 09/01/23 06:30 09/03/23 03:57 Labs: Laboratory Results - last 24 hr 09/03/23 03:57 Sodium 143 Potassium 5.6 H D Chloride 98 Carbon Dioxide 13 L Anion Gap 38 H BUN 143 H Creatinine 7.31 H* Estim Creat Clear Calc 7.4 Estimated GFR 5 Random Glucose 120 H Calcium 7.8 L D Microbiology Microbiology Results: Microbiology 09/01/23 06:30 Blood - Venous Blood Culture - Preliminary No growth after 48 hours. 09/01/23 06:30 Blood - Venous Blood Culture - Preliminary No growth after 48 hours. 08/26/23 13:39 Blood - Venous Blood Culture - Final No growth after 5 days. 08/26/23 13:39 Blood - Venous Blood Culture - Final No growth after 5 days. 08/18/23 21:45 Blood - Venous Blood Culture - Final Streptococcus pneumoniae 08/18/23 20:17 Blood - Venous Blood Culture - Final Streptococcus pneumoniae Procedures Date of Service Date of Service: 09/03/23 Assessment & Plan Assessment and plan (1) BRE (acute kidney injury): Status: Acute (2) MGUS (monoclonal gammopathy of unknown significance): Status: Acute (3) Septic shock due to streptococcal infection: Status: Acute Plan Ms. 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 Course is complicated by BRE, and volume overload refractory to IV diuresis now requiring HD support Sero results noted IgGK ( known H/O going back > 1 year) Low C3 and C4: h/o CVDz but also raises question of Immune complex GN assoc with infection ( PIGN) Anca negative normal PLT makes TMA unlikley Etiology of BRE: most c/w sepsis associated ATN with other possibiilty being Glomerular disease given sarcoid and RA history is possible and now with low C3 C4 also raises question of ( PIGN) as well REC: Track UOP Watch for recovery May need to consider pros/cons of kidney Bx - depending on clinical course as Renal function has not improved - Pcath as bld cult from 09/01- neg x 48 hrs will dialyse today - Will keep TTS schedule - as no significant recovery in the last 24 hrs Avoid nephrotoxoins Time Spent With Patient Time: Total time managing care of this patient today ____ minutes. Progress Note: Quality Stroke Does the patient have a stroke diagnosis?: No
--- NOTE | 2023-09-03 16:55 | P.PNIM_ITS ---
Subjective Subjective Date of Service: 09/04/23 Interval History: being followed for acute encephalopathy, no change in clinical condition patient remains confused is NPO for PermCath placement, friend at bedside patient is trying to communicate but difficult to understand, no overnight events, no fevers, no chills, no nausea, no vomiting, no complain of pain. Review of Systems unable to obtain due to mental status Physical Exam 2 Vital Signs: Vital Signs: Last Vital Signs Temp 97.2 F 09/03/23 14:57 Pulse 100 09/03/23 14:57 Resp 22 H 09/03/23 14:57 BP 177/82 H 09/03/23 14:57 Pulse Ox 94 09/03/23 14:57 O2 Del Method Nasal Cannula 09/03/23 14:57 O2 Flow Rate 3 09/03/23 14:57 FiO2 30 08/29/23 13:00 BMI result Body Mass Index 28.3 Const: Other: General awake alert, pleasantly confused Neck supple no JVD. CVS regular rate rhythm, Respiratory lungs clear to auscultation, no respiratory distress, no wheeze, no rhonchi. Gastrointestinal abdomen soft, non tender, bowel sounds audible, no guarding , no rigidity. Extremities no edema. Neuro moving all 4 extremity ,speech difficult to understand, at times clear. Skin discoloration dorsum of both hands, dry scab on forearms Objective Data Active Medications Acetaminophen (Acetaminophen 325 Mg Tablet) 650 mg PO Q6H PRN PRN Reason: Pain, Mild (Pain Scale 1-3) Last Admin: 09/03/23 03:09 Dose: 650 mg Documented By: FRANCIE Acetaminophen (Acetaminophen Supp 650 Mg Supp.Rect) 650 mg SD Q6H PRN PRN Reason: Pain, Mild (Pain Scale 1-3) Last Admin: 09/01/23 22:16 Dose: 650 mg Documented By: POLLY Albuterol Sulfate (Albuterol Sulfate (0.083%) 2.5 Mg/3 Ml Vial.Neb) 2.5 mg INHALE Q3H PRN PRN Reason: Wheezing Last Admin: 08/26/23 08:18 Dose: 2.5 mg Documented By: ROMA Artificial Tears (Artificial Tears 15 Ml Drops) 2 drop EYE-BOTH Q4H PRN PRN Reason: Dry Eyes Last Admin: 08/29/23 08:33 Dose: 2 drop Documented By: ESTEFANIA Bupropion HCl (Bupropion Hcl 75 Mg Tablet) 75 mg PO BID [facility] Last Admin: 09/03/23 09:28 Dose: 75 mg Documented By: WANG Dextrose (Dextrose 50 % 25 Gm/50 Ml Syringe) 25 gm IVPUSH Q15M PRN PRN Reason: per Hypoglycemia Standing Ord. Last Admin: 08/21/23 13:27 Dose: 25 gm Documented By: HAROON Glucose (Glucose Gel 15 Gm Gel..Gram.) 15 gm PO Q15M PRN PRN Reason: per Hypoglycemia Standing Ord. Last Admin: 08/19/23 16:40 Dose: 15 gm Documented By: AVRIL Heparin Sodium (Porcine) (Heparin Sodium,Porcine 5,000 Unit/Ml Vial) 5,000 unit SUBCUT Q8H [facility] Last Admin: 09/03/23 09:28 Dose: 5,000 unit Documented By: WANG Hydromorphone HCl (Hydromorphone Hcl 0.5 Mg/0.5 Ml Syringe) 0.25 mg IVPUSH Q4H PRN; Protocol PRN Reason: Pain, Severe (Pain Scale 7-10) Last Admin: 09/03/23 09:25 Dose: 0.25 mg Documented By: WANG Piperacillin Sod/Tazobactam (Sod 4.5 gm/ Sodium Chloride) 100 mls @ 200 mls/hr IV Q12H [facility] Last Infusion: 09/03/23 06:00 Dose: Infused Documented By: LAFLAMDorian Lidocaine (Lidocaine 4 % Patch Adh..Patch) 2 patch TRANSDERMA DAILY [facility]; Protocol Last Admin: 09/03/23 09:28 Dose: 2 patch Documented By: WANG Methylprednisolone Sodium Succinate (Methylprednisolone Sod Succ 40 Mg/Ml Vial) 8 mg IVPUSH Q24H [facility] Last Admin: 09/03/23 09:26 Dose: 8 mg Documented By: WANG Ondansetron HCl (Ondansetron Hcl 4 Mg/2 Ml Vial) 4 mg IVPUSH Q6H PRN PRN Reason: Nausea and Vomiting Last Admin: 08/20/23 19:24 Dose: 4 mg Documented By: PRATEEK Labs 09/04/23 05:19 09/04/23 05:19 Labs: Laboratory Results - last 24 hr 09/03/23 03:57 Anion Gap 38 H Estim Creat Clear Calc 7.4 Estimated GFR 5 Random Glucose 120 H Calcium 7.8 L D Microbiology Microbiology Results: Microbiology 09/01/23 06:30 Blood Culture - Preliminary Blood - Venous No growth after 48 hours. 09/01/23 06:30 Blood Culture - Preliminary Blood - Venous No growth after 48 hours. Assessment and Plan (1) Uremic encephalopathy: Status: Acute (2) Streptococcal pneumonia: Status: Acute (3) Septic shock due to streptococcal infection: Status: Acute (4) BRE (acute kidney injury): Status: Acute Plan The 73-year-old female with rheumatoid arthritis, sarcoidosis, chronic steroid, and methotrexate use was admitted to the ICU due to septic shock, strep pneumonia bacteremia, and further complications in her hospital course included renal failure leading to uremia, requiring hemodialysis. Septic shock d/t strep pneumo pneumonia and bacteremia--treated in the ICU with combination of zosyn, vanco, Cefepime and Ceftriaxone for total of 10 days. Repeat blood cultures have been negative, and WBC has normalized. Acute hypoxic respriatory failure due to the above, required mechanical ventilation, extubated 08/29, noted to be tachypneic on 08/31 now resolved will wean oxygen patient not on home O2. Fever noted to have a fever of 101.9 on 08/31 chest x-ray showed atelectasis otherwise no acute abnormality, empirically placed on IV Zosyn d3/5 days repeat blood cultures negative follow clinical status closely. no recurrent fevers since . BRE d/t ATN from septic shock, Creatinine was normal, middle of July, now requiring dialysis, case discussed with Nephrology they recommend Perma cath placement scheduled for today patient with underlying history of MGUS will need renal biopsy when clinically stable as per Nephro. acute toxic metabolic Encephalopathy, likely multifactorial, septic shock, uremia, medication. Will avoid sedatives/benzos,Continue hemodialysis. History of HTN, was on Norvasc and lisinopril currently on hold, BP gradually trending up if noted to have persistent elevated BP will resume lisinopril low- dose History of RA, sarcoid, continue iv steroid home dose equivalent, hold immunosuppressants. Respiratory Alkalosis ? d/t tachypnea, and Anion gap metabolic acidosis likely due to renal failure will discuss with Nephrology. mood disorder restarted on Wellbutrin 75 mg b.i.d.on 09/01. disposition evaluated by Physical therapy they recommend short-term rehab patient will need continued inpatient hospitalization for requirement of PermCath for continued hemodialysis and also close clinical follow-up for fevers and acute persistent encephalopathy Spoke with patient's daughter Torrie Fan and updated her regarding patient's current clinical condition and plan for PermCath placement today and eventual discharge to rehab facility. Quality Stroke Does the patient have a stroke diagnosis?: No VTE Prior VTE?: No VTE Risk Level:: Medical - moderate - high VTE Device Contraindication: N/A - Device Ordered VTE Drug Contraindication: Treatment Not Tolerated
[2023-09-03] MEDS: Metoprolol Tartrate 5 MG/5 ML VIAL IVPUSH (20:14)
[2023-09-03] MEDS: 0.9 % Sodium Chloride 250 ML 999 ML IV (20:25)
[2023-09-03 20:29] LABS: Glucose, Whole Blood 103 mg/dL (60-115)
[2023-09-03] MEDS: propofoL 1,000 MG/100 ML VIAL 19.08 MG IVCONT (20:40)
[2023-09-03] MEDS: EPINEPHrine 1 MG/10 ML SYRINGE IVPUSH (20:42)
[2023-09-03] MEDS: propofoL 200 MG/20 ML VIAL 50 MG IVPUSH (20:42)
[2023-09-03] MEDS: Etomidate 20 MG/10 ML VIAL IVPUSH (20:42)
[2023-09-03] MEDS: Amiodarone/Dextrose 150 MG/100 ML PLAST..BAG 600 MG IV (20:47)
--- NOTE | 2023-09-03 20:47 | ECG_ITS ---
Test Reason : rhythm check Blood Pressure : / mmHG Vent. Rate : 167 BPM Atrial Rate : 000 BPM P-R Int : 000 ms QRS Dur : 092 ms QT Int : 272 ms P-R-T Axes : 000 074 156 degrees QTc Int : 453 ms Atrial fibrillation with rapid ventricular response Marked ST abnormality, possible inferior subendocardial injury Abnormal ECG When compared with ECG of 03-SEP-2023 19:34, Questionable change in QRS duration Referred By: Alex Murrieta Electronically Signed By:
[2023-09-03] MEDS: Norepinephrine Bitartrate/D5W 8 MG/250 ML PLAST..BAG 149.06 MG IV (20:48)
[2023-09-03] MEDS: Sodium Bicarbonate 8.4% 50 MEQ/50 ML VIAL IVPUSH ×2 (21:00→21:15)
[2023-09-03] MEDS: Amiodarone HCL 900 MG in 0.9 % Sodium Chloride 500 ML 34.53 MG IVCONT (21:06)
[2023-09-03 21:07] LABS: ABG Base Excess 8.1 mmol/L; ABG HCO3 32 mmol/L (22-26); ABG pCO2 43 mmHg (32-45); ABG pH 7.47 (7.35-7.45); ABG pO2 310 mmHg (83-108)
[2023-09-03 21:31] LABS: Basophils Absolute Auto 0.1 X10*3/uL (0.0-0.2); Basophils Percent Auto 0.6 % (0-2); Eosinophils Percent Auto 0.1 % (0-4); Hemoglobin 10.8 g/dl (12.0-16.0); Imm Gran Abs Auto 0.22 X10*3/uL (0.00-0.03); Imm Gran Pct Auto 1.3 % (0.0-0.4); Lymphocytes Absolute Auto 1.7 X10*3/uL (1.2-4.9); MANUAL DIFF FLAG SCAN; Mean Corpuscular HGB Conc 31.8 g/dl (31.0-35.0); Mean Corpuscular Hemoglobin 29.6 pg (27.0-33.0); Mean Corpuscular Volume 93.2 fL (80.0-98.0); Mean Platelet Volume 10.8 fL (9.4-12.3); Monocytes Percent Auto 11.5 % (2-11); NRBC Pct Auto 0.1 /100WBC (0.0-0.2); Neutrophils Absolute Auto 13.1 x10*3/uL (2.0-8.3); Neutrophils Percent Auto 76.5 % (45-73); Platelet Count 411 X10*3/uL (160-400); Red Blood Count 3.65 X10*6/uL (4.20-5.50); Red Cell Distribution Width 15.3 % (11.0-16.0); SCAN SMEAR FLAG 1; White Blood Count 17.1 X10*3/uL (4.8-10.8)
--- NOTE | 2023-09-03 21:44 | P.PCNCC_ITS ---
Procedures Date of Service Date of Service: 09/03/23 <Alex Murrieta NP - Last Filed: 09/04/23 00:21> 09/04/23 <Wilberto Hawkins MD - Last Filed: 09/04/23 12:58> Intubation Intubation Comments: Patient in acute respiratory distress, requiring emergent intubation unable to protect airway and hypoxia.. Patient intubated with 7.5 cuffed ET tube under glide scope guidance with visualization of vocal cords, without immediate complications. ET w tube position verified with Chest XRAY. <Alex Murrieta NP - Last Filed: 09/04/23 00:21> Consent for Procedure: Emergent-no informed consent obtained <Alex Murrieta NP - Last Filed: 09/04/23 00:21> Time out performed: Yes <Alex Murrieta NP - Last Filed: 09/04/23 00:21> Sedative: propofol <Alex Murrieta NP - Last Filed: 09/04/23 00:21> Mg given: 50 <Alex Murrieta NP - Last Filed: 09/04/23 00:21> Laryngoscope: fiber optic video scope <Alex Murrieta NP - Last Filed: 09/04/23 00:21> ET tube size: 7.5 <Alex Murrieta NP - Last Filed: 09/04/23 00:21> ET tube uncuffed: No <Alex Murrieta NP - Last Filed: 09/04/23 00:21> Tube secured depth (cm): 25 <Alex Murrieta NP - Last Filed: 09/04/23 00:21> Tube secured location: lips <Alex Murrieta NP - Last Filed: 09/04/23 00:21> Tube placement confirmation: visualized tube passing through cords, equal breath sounds bilaterally, no breath sounds over epigastrium and confirmation by capnometry <Alex Murrieta NP - Last Filed: 09/04/23 00:21> Patient tolerated procedure: well and no complications <Alex Murrieta NP - Last Filed: 09/04/23 0 0:21> Intubation complications: none <Alex Murrieta NP - Last Filed: 09/04/23 00:21>
--- NOTE | 2023-09-03 21:44 | W.PM.CCCN ---
History of Present Illness Data of Consult Service Date: 09/03/23 Requesting physician: Erickson Toledo Primary Care Provider: Miguelina Flor MD HPI Reason for consult: AMS, AFIB RVR 73-year-old female with underlying history of sarcoidosis, rheumatoid arthritis, MGUS, emphysema admitted to ICU on 08/18/2023 with septic shock secondary to streptococcal pneumonia requiring pressor support and intubation, further complicated by acute renal failure now requiring hemodialysis support and Poor arousal with sedation vacation, likely secondary to uremic encephalopathy. Extubated uneventfully on 08/29/2023 and transfer to medical floor on 08/31/23.? Tonight,? patient went into atrial fibrillation with RVR,? patient was unresponsive not responding to sternal rub. Hypotensive to systolics of 50s. She received a 250ML IV bolus on the floor.? Required emergent intubation on arrival to the ICU ? Laboratory data was significant for:? WBC 17.1,? chloride 95, serum bicarb 15,? BUN 52, creatinine 3.36, phos 5.7, Mag 2.8, and lactic acid 5.8 ?AB.47/43/310/32 Review of Systems Review of Systems: Yes unobtainable due to endotracheal tube PMFSH Past Medical History Medical History (Updated 09/04/23 @ 00:58 by Alex Murrieta NP) Xanthelasma Pulmonary nodules Mild recurrent major depression Emphysema lung Hip bursitis Depression Essential hypertension Family History Family History Mother Leukemia Father Diabetes Heart disease Brother Heart disease Other No family history of cancer Surgical History Surgical History Xanthelasma of lower eyelid History of coronary angiogram Hx of left knee surgery H/O cataract removal with insertion of prosthetic lens H/O laminectomy Carpal tunnel syndrome on both sides Social History Social History Household Members: Spouse Housing: House Are you a primary home care music therapist to a significant other at home: Yes (Son) Do you presently have visiting nurse or other home services: No Unable to assess alcohol history related to: Unknown Alcohol intake: current Alcohol intake frequency: holidays/special occasions only Alcohol type: wine Comment: bilateral wrist restraints--intubated Patient Tobacco Use Status: Former Tobacco user Tobacco use type: Cigarette e-Cigarette/Vaping Use: Never Used Second Hand Smoke Exposure: No Use of substances other than those prescribed or required for medical reasons: No Substance Use Type: Marijuana Currently Displaying Signs/Symptoms of Drug Intoxication Withdrawal: No Advance Directives: No Advance Directives Information Provided: No Do you have thoughts of harming others: None Do you have a plan to hurt others: No Plan Recently lost weight without trying: No Nutrition Risks: Acute nausea or vomiting x1 week Patient : No service: No Current occupational status: employed and retired Cognitive needs: No Hearing needs: No Vision needs: Yes (reading glasses) Meds Allergies Allergy/AdvReac Type Severity Reaction Status Date / Time [id number]-[id number] Reductase Allergy Severe ANAPHYLACTI Verified 08/18/23 18:47 Inhibitor C [[id number] REDUCTASE INHIBITOR] Active Medications: Current Medications Acetaminophen (Acetaminophen 325 Mg Tablet) 650 mg PO Q6H PRN PRN Reason: Pain, Mild (Pain Scale 1-3) Last Admin: 09/03/23 03:09 Dose: 650 mg Acetaminophen (Acetaminophen Supp 650 Mg Supp.Rect) 650 mg [place] Q6H PRN PRN Reason: Pain, Mild (Pain Scale 1-3) Last Admin: 09/01/23 22:16 Dose: 650 mg Albuterol Sulfate (Albuterol Sulfate (0.083%) 2.5 Mg/3 Ml Vial.Neb) 2.5 mg INHALE Q3H PRN PRN Reason: Wheezing Last Admin: 08/26/23 08:18 Dose: 2.5 mg Artificial Tears (Artificial Tears 15 Ml Drops) 2 drop EYE-BOTH Q4H PRN PRN Reason: Dry Eyes Last Admin: 08/29/23 08:33 Dose: 2 drop Bupropion HCl (Bupropion Hcl 75 Mg Tablet) 75 mg PO BID [facility] Last Admin: 09/03/23 09:28 Dose: 75 mg Dextrose (Dextrose 50 % 25 Gm/50 Ml Syringe) 25 gm IVPUSH Q15M PRN PRN Reason: per Hypoglycemia Standing Ord. Last Admin: 08/21/23 13:27 Dose: 25 gm Glucose (Glucose Gel 15 Gm Gel..Gram.) 15 gm PO Q15M PRN PRN Reason: per Hypoglycemia Standing Ord. Last Admin: 08/19/23 16:40 Dose: 15 gm Heparin Sodium (Porcine) (Heparin Sodium,Porcine 5,000 Unit/Ml Vial) 5,000 unit SUBCUT Q8H [facility] Last Admin: 09/03/23 19:29 Dose: 5,000 unit Hydromorphone HCl (Hydromorphone Hcl 0.5 Mg/0.5 Ml Syringe) 0.25 mg IVPUSH Q4H PRN; Protocol PRN Reason: Pain, Severe (Pain Scale 7-10) Last Admin: 09/03/23 19:44 Dose: 0.25 mg Piperacillin Sod/Tazobactam (Sod 4.5 gm/ Sodium Chloride) 100 mls @ 200 mls/hr IV Q12H [facility] Last Infusion: 09/03/23 21:11 Dose: Infused Amiodarone HCl 900 mg/ Sodium (Chloride) 518 mls @ 34.533 mls/hr IVCONT .Q15H1M [facility]; Protocol Last Admin: 09/03/23 21:06 Dose: 1 mg/min, 34.53 mls/hr Norepinephrine Bitartrate (Levophed) 8 mg in 250 mls @ 0 mls/hr IV .Q0M [facility]; Protocol Propofol (Diprivan) 1,000 mg in 100 mls @ 0 mls/hr IVCONT .Q0M [facility]; Protocol Last Admin: 09/03/23 20:40 Dose: 40 mcg/kg/min, 19.08 mls/hr Lidocaine (Lidocaine 4 % Patch Adh..Patch) 2 patch TRANSDERMA DAILY [facility]; Protocol Last Admin: 09/03/23 09:28 Dose: 2 patch Methylprednisolone Sodium Succinate (Methylprednisolone Sod Succ 40 Mg/Ml Vial) 8 mg IVPUSH Q24H [facility] Last Admin: 09/03/23 09:26 Dose: 8 mg Ondansetron HCl (Ondansetron Hcl 4 Mg/2 Ml Vial) 4 mg IVPUSH Q6H PRN PRN Reason: Nausea and Vomiting Last Admin: 08/20/23 19:24 Dose: 4 mg Home Medications Medication Instructions Recorded Confirmed Last Taken Type clopidogrel 75 mg tablet (Plavix) 75 mg PO DAILY 06/28/20 08/19/23 Unknown History alirocumab 150 mg/mL subcutaneous 150 mg subcut Q2W 06/17/22 08/19/23 Unknown History pen injector (Praluent Pen) Physical Exam Vital Signs: Vital Signs: Last Vital Signs Temp 96.8 F 09/03/23 19:35 Pulse 119 H 09/03/23 21:00 Resp 20 09/03/23 19:35 BP 182/88 H 09/03/23 21:00 Pulse Ox 88 L 09/03/23 21:00 O2 Del Method Mechanical Ventil ation 09/03/23 21:00 O2 Flow Rate 3 09/03/23 19:35 FiO2 60 09/03/23 21:16 BMI result Body Mass Index 28.3 focused assesment performed at 2350 ?General:? patient intubated ?HEENT:? Head is normocephalic, atraumatic, pupils equal round reactive to light accommodation bilaterally.? Buccal mucosa is dry, Neck is supple ?Cardiac:? Atrial fibrillation with RVR. ?Pulmonary:? Lungs diminished throughout.. ?Abdomen:? ?Abdomen soft, non-tender, non-distended. Normal bowel sounds. No pulsatile mass. No hepatosplenomegaly. ?Musculoskeletal:? Moving all 4 extremities randomly ?Neurologic:? cranial nerves 2-12 are grossly intact.? No focal deficits noted.Motor strength as above.?? ?Skin:? multiple bruises throughout Vascular:? 2+ pulses upper and lower extremities distally.? Results Labs 09/04/23 05:19 09/04/23 05:19 Labs: BMP 09/03/23 03:57 Sodium 143 Potassium 5.6 H D Chloride 98 Carbon Dioxide 13 L BUN 143 H Creatinine 7.31 H* Calcium 7.8 L D Microbiology Microbiology Results: Microbiology 09/01/23 06:30 Blood - Venous Blood Culture - Preliminary No growth after 48 hours. 09/01/23 06:30 Blood - Venous Blood Culture - Preliminary No growth after 48 hours. 08/26/23 13:39 Blood - Venous Blood Culture - Final No growth after 5 days. 08/26/23 13:39 Blood - Venous Blood Culture - Final No growth after 5 days. 08/18/23 21:45 Blood - Venous Blood Culture - Final Streptococcus pneumoniae 08/18/23 20:17 Blood - Venous Blood Culture - Final Streptococcus pneumoniae Assessment and Plan (1) Streptococcal pneumonia: Status: Acute (2) Acute hypoxic respiratory failure: Status: Acute (3) BRE (acute kidney injury): Status: Acute (4) Septic shock: Status: Acute (5) Atrial fibrillation with rapid ventricular response: Status: Acute Plan 73-year-old female re admitted to ICU with septic shock secondary to streptococcal pneumonia further complicated by acute renal failure requiring hemodialysis support and septic encephalopathy Plan: Neuro:??? AMS- patient was unresponsive, likely. ? from septic shock/? aspiration. Cardiac:?? ?Septic shock-? elevated lactic, patient hypotensive, likely from aspiration.? Unable to give 30 mL/kg due to underlying renal failure and concern for fluid overload.? Will give 200? mL of albumin. ? Continue empiric antibiotics.? Wean off pressors as tolerated.? ?Atrial fibrillation with RVR-? new onset AFib with RVR likely due to septic shock.? Received load of amiodarone.? Continue amiodarone drip.? Pulmonary:? ?Acute hypoxic respiratory failure requiring ventilatory support secondary to? aspiration event.? Patient noted to have copious amount of thick since sputum when intubated. Sputum culture obtained. Will obtain Chest CT. ? Continue empiric? antibiotics. Continue to titrate off? vent as tolerated. Renal:?? Acute renal failure on the background of septic shock, likely ATN.? Nephrology service care appreciated.? Continue hemodialysis support.? Underlying MGUS.? Endo:? No acute issues.? GI:? No acute issues. ID:?? Underlying Streptococcal pneumonia but now new aspiration. ? New set of blood cultures and Sputum cultures sent. ? She is on Zosyn,? will also add vancomycin.? Heme/Onc:? No acute issues. Psych:? No acute issues. Miscellaneous:? No acute issues. Prophylaxis:? Heparin Critical care time spent:? 90 minutes
[2023-09-03 21:46] LABS: Alanine Aminotransferase 24 U/L (0-31); Albumin Level 4.3 g/dL (3.5-5.0); Alkaline Phosphatase 230 U/L (39-117); Anion Gap 29 (12-20); Aspartate Amino Transferase 47 U/L (5-31); Bilirubin Total 1.1 mg/dL (0.0-1.0); Blood Urea Nitrogen 52 mg/dL (9-16); Carbon Dioxide 15 mmol/L (22-29); Chloride 95 mmol/L (96-108); Creatinine Clr Calc Pharmacy 15.8; Estimated Glomerular Filt Rate 13; Glucose Random 119 mg/dL (60-115); Magnesium 2.8 mg/dL (1.6-2.6); Phosphorus 5.7 mg/dL (2.7-4.5); Sodium 135 mmol/L (135-145); Total Protein 9.6 g/dL (6.5-8.0)
[2023-09-03 21:47] LABS: SLIDE REVIEW VERIFIED
[2023-09-03 21:51] LABS: B Type Natriuretic Peptide 117 pg/mL (<100)
[2023-09-03 21:53] LABS: Troponin-I High Sensitivity 21.8 ng/L (<3.5-17.0)
--- NOTE | 2023-09-03 22:05 | PC.NURSE ---
Pt returned to dialysis approx 1914. Assessed and cleaning pt when noticed HR increase to 140-150s. BP 116/51 Pt RR increasing as we did bed change. Gave 0.25mg Dilaudid IV prn for pain. HR still increasing to 170-180s. MD and brewery pumper notified and at bedside. EKG showing rapid a fib, pt previously SR. MD to bedside, assessed pt. HR continued 160-180, new order for IV metoprolol 5mg admin. HR decreased to 140s. Reassessed BP at this time, BP 76/50 at 20:18. Attempted manual BP, very soft difficult to hear - 50/30 20:35. Pt eyes rolling back, trended in bed. 250ml NS ordered admin. Airplane Dispatch Clerk also notified and came to bedside. on phone with ICU [employer] who came to beside and accepted pt. Txr to ICU
[2023-09-03 22:12] LABS: ABG Refer to POC result
[2023-09-03 22:15] LABS: Lactic Acid 5.8 mmol/L (0.5-2.0)
--- NOTE | 2023-09-03 22:18 | PHA.PROG ---
Admission Date/Time: August 18, 2023 23:15 Indication: sepsis Weight in k.5 kg Serum Creatinine - Last 168 Hours 08/28/23 08/29/23 08/30/23 05:25 05:08 05:10 Creatinine 4.57 H* 3.90 H 3.70 H 08/31/23 08/31/23 09/01/23 04:55 20:30 06:30 Creatinine 5.54 H* 3.36 H 4.30 H* 09/03/23 09/03/23 03:57 21:22 Creatinine 7.31 H* 3.36 H Estimated CrCl and GFR - Last 168 Hours 08/28/23 08/29/23 08/30/23 05:25 05:08 05:10 Estim Creat Clear Calc 12.6 14.6 15.3 Estimated GFR 9 11 12 08/31/23 08/31/23 09/01/23 04:55 20:30 06:30 Estim Creat Clear Calc 9.9 16.3 12.6 Estimated GFR 8 13 10 09/03/23 09/03/23 03:57 21:22 Estim Creat Clear Calc 7.4 15.8 Estimated GFR 5 13 Vancomycin Loading Dose: 1000 Current Vancomycin Dosing Regimen: based on post dialysis level Vancomycin Monitoring using AUC goal of 400 - 600 range with trough as surrogate marker: Date and Time for next Vancomycin Level to be drawn: Pharmacist Comments on Vancomycin Plan: Vancomycin dosing will take advantage of [employer] as a clinical decision support tool that uses Bayesian modeling to calculate individual patient's pharmacokinetic parameters and forecast the patient's drug concentration time course with the target goal AUC 24 range of 400 - 600 mg/L/hr.
[2023-09-03] MEDS: vancomycin HCL 1,000 MG in 0.9 % Sodium Chloride 250 ML 270 MG IV (22:31)
[2023-09-03] MEDS: Albumin Human 25 % 100 ML 133 ML IV ×2 (22:40→23:26)
--- NOTE | 2023-09-03 22:57 | PM.EVENT ---
Event Note Date of Service: 09/03/23 Event Note: I ws called for patient with Afib with RVR Found patient in room with family members at bedside. She unfortunately was unresponsive to even sternal rub and per family, she had been in this state since she got back from dialysis. She has not received any sedating medications. She got 5 mg of IV Metoprolol for rate control with only modest improvement in her HT from 180's to 130's However, we were unable to give her another dose since her blood pressure dropped with SBP as low as 50 mmHg Because of her tenuous condition, I spoke to Dr. Toney who graciously accepted top continue her care in the ICU Ass/plan 1. Altered mental status - is un-arousable - unclear cause - will need transfer to ICU 2. Hypotension - SBP as low as 50 mmHg - will give 250 cc of IV normal saline - transfer to ICU for vasopressors 3. with RVR - new onset - transfer to ICU for rate control in setting of hypotension Time Spent With Patient Time: Total time managing care of this patient today _30___ minutes.
--- NOTE | 2023-09-03 23:00 | PC.NURSE ---
Pt transferred to ICU at 2034 from [employer]. Upon initial assessment- pt obtunded, minimally responsive to sternal rub. ABG drawn by RT. Decision to intubate per VAMP LINER Alex. Epi 1 mg IVP x1 given for BP 50/30. Given propofol 50 mg IVPand etomidate 20 mg IVP for RSI. ETT 7.5, 25 cm at lip. On AC settings. Lavaged and suctioned copious thick in-line secretions, sputum sample sent. HR up 180-190s on tele, EKG showing AFib, given Amiodarone 150 mg IV bolus and gtt started per NOV. 2 amps of bicarb given. Elevated lactic, given albumin 100 mL x2 IV and vanco IV per NOV. NGT placed to?L nare. Bladder scan for 141. Skin overall intact. Brought to CT scan without incident. Family at bedside and updated on pt status/plan of care. Bed locked in low position.
[2023-09-03] MEDS: Norepinephrine Bitartrate/D5W 8 MG/250 ML PLAST..BAG 41.74 MG IV (23:56)
[2023-09-04] VITALS (46 sets, daily range): BP systolic 102–158; BP diastolic 46–84; PULSE 75–90; RESP 18–83; TEMP 34.1–37.7; O2SAT 91–123; BMI 28.5
[2023-09-04 00:01] LABS: Reflex Lactate? Lactic Acid Added
[2023-09-04] MEDS: propofoL 1,000 MG/100 ML VIAL 19.08 MG IVCONT (00:15)
[2023-09-04] MEDS: Midazolam HCl/PF 2 MG/2 ML VIAL IVPUSH ×2 (00:30→06:03)
--- NOTE | 2023-09-04 00:33 | PM.SEPBOLA4 ---
Sepsis Bolus Exclusion Sepsis Bolus Exclusion Date of Occurrence: 09/03/23 This patient met severe sepsis criteria due to the following condition(s):: Hypotension, Lactate>=4mmol/L and Documentation of septic shock In my clinical judgement the administration of 30 ml/kg of crystalloid would be detrimental to this patient due to the patient's following conditions:: Stage III or IV Chronic Kidney Disease (GFR<30) and Concern for fluid overload Replace the 30 mls/kg with (*zero amount not acceptable): *Note: One of the sinha must be documented Colloids amount given in mls:: 200 At a rate of (must be > 125 cchr):: 133
[2023-09-04 01:02] LABS: ~Lactic Acid-LAB USE ONLY 2.4 mmol/L (0.5-2.0)
[2023-09-04] MEDS: Heparin Sodium,Porcine 5,000 UNIT/ML VIAL 5000 UNIT SUBCUT ×3 (01:32→17:12)
[2023-09-04 02:38] LABS: Reflex Lactate? 2 Y
[2023-09-04 03:21] LABS: ~Lactic Acid-LAB USE ONLY 1.4 mmol/L (0.5-2.0)
[2023-09-04] MEDS: propofoL 1,000 MG/100 ML VIAL 23.85 MG IVCONT ×2 (04:24→08:35)
[2023-09-04] MEDS: Piperacillin Sodium/Tazobactam 4.5 GM in 0.9 % Sodium Chloride 100 ML IV ×2 (04:51→15:19)
[2023-09-04 05:23] LABS: VBG Base Excess 0.1 mmol/L; VBG HCO3 21 mmol/L (22-26); VBG pCO2 23 mmHg; VBG pH 7.55 (7.32-7.43); VBG pO2 77 mmHg
[2023-09-04 05:25] LABS: Venous Blood Gas Refer to POC result
[2023-09-04 05:31] LABS: MANUAL DIFF FLAG NO
[2023-09-04] MEDS: Pantoprazole Sodium 40 MG/10 ML VIAL IVPUSH (05:32)
[2023-09-04 05:34] LABS: Basophils Absolute Auto 0.1 X10*3/uL (0.0-0.2); Basophils Percent Auto 1.2 % (0-2); Eosinophils Percent Auto 0.1 % (0-4); Hematocrit 25.7 % (37.0-47.0); Hemoglobin 8.5 g/dl (12.0-16.0); Imm Gran Pct Auto 1.3 % (0.0-0.4); Lymphocytes Absolute Auto 1.7 X10*3/uL (1.2-4.9); Lymphocytes Percent Auto 22.2 % (20-40); Mean Corpuscular HGB Conc 33.1 g/dl (31.0-35.0); Mean Corpuscular Hemoglobin 29.5 pg (27.0-33.0); Mean Corpuscular Volume 89.2 fL (80.0-98.0); Mean Platelet Volume 10.6 fL (9.4-12.3); Monocytes Absolute Auto 1.4 X10*3/uL (0.1-1.2); Monocytes Percent Auto 18.8 % (2-11); Neutrophils Absolute Auto 4.3 x10*3/uL (2.0-8.3); Neutrophils Percent Auto 56.4 % (45-73); Platelet Count 364 X10*3/uL (160-400); Red Blood Count 2.88 X10*6/uL (4.20-5.50); Red Cell Distribution Width 14.6 % (11.0-16.0); White Blood Count 7.7 X10*3/uL (4.8-10.8)
[2023-09-04 05:51] LABS: Alanine Aminotransferase 19 U/L (0-31); Albumin Level 4.5 g/dL (3.5-5.0); Alkaline Phosphatase 180 U/L (39-117); Anion Gap 30 (12-20); Aspartate Amino Transferase 38 U/L (5-31); Bilirubin Total 0.7 mg/dL (0.0-1.0); Blood Urea Nitrogen 67 mg/dL (9-16); Carbon Dioxide 19 mmol/L (22-29); Chloride 94 mmol/L (96-108); Creatinine Clr Calc Pharmacy 13.4; Estimated Glomerular Filt Rate 11; Glucose Random 118 mg/dL (60-115); Magnesium 2.4 mg/dL (1.6-2.6); Phosphorus 7.8 mg/dL (2.7-4.5); Potassium 3.9 mmol/L (3.3-5.1); Sodium 139 mmol/L (135-145); Total Protein 8.7 g/dL (6.5-8.0)
[2023-09-04] MEDS: Calcium Gluconate/NaCl,Iso-Osm 2 GM/100 ML PLAST..BAG IV (06:15)
--- NOTE | 2023-09-04 07:38 | PM.EVENT ---
Event Note Date of Service: 09/04/23 Event Note: Chart and overnights reviewed. Permacath will be postponed until acute medical issues have resolved. Willie BOYD Interventional Radiology Time Spent With Patient Time: Total time managing care of this patient today ____ minutes.
[2023-09-04] MEDS: methylPREDNISolone Sod Succ 40 MG/ML VIAL 8 MG IVPUSH (07:41)
[2023-09-04] MEDS: buPROPion HCL 75 MG TABLET PO (08:07)
[2023-09-04] MEDS: Chlorhexidine Gluc Oral Rinse 15 ML MOUTHWASH BUCCAL (08:07)
[2023-09-04] MEDS: Nystatin Powder 15 GM BOTTLE 1 APPL TOPICAL ×2 (08:08→22:46)
--- NOTE | 2023-09-04 09:54 | MHC.SLORD ---
Speech Language Pathology Order Status: Pt intubated, not appropriate for PO trials this date. F/u deferred pending 24-48 hours post-extubation.
[2023-09-04] MEDS: Norepinephrine Bitartrate/D5W 8 MG/250 ML PLAST..BAG 14.91 MG IV (10:10)
--- NOTE | 2023-09-04 12:17 | PC.NURSE ---
Assumed care at 0700 - patient intubated and sedated. Opens eyes to to verbal stimuli, positive tracking, positive cough/gag/pain response. Sedation Vacation initiated at [address] Hawkins - patient staying awake, following commands. Successful PSV trial initiated by MD at 1030 PSV 8/5 40%. VSS. Patient extubated per MD order at 1050 to HF 40L 40% w/o complications. Levophed gtt titrated off per EMAR, MAP maintainining >65.
--- NOTE | 2023-09-04 12:39 | MHC.CM.PN ---
Pt transferred to ICU following hypotensive / unresponsive episode following hemodialysis. Pt required brief ventilatory support but has since been extubated and is on high flow. Pt will need PT/OT evals and permacath placement prior to d/c to [facility]. Referrals for acute rehab have been made - no plans for d/c at this time. CM to follow.
--- NOTE | 2023-09-04 12:58 | PM.CCPN ---
Subjective Subjective Date of Service: 09/04/23 Interval History: 73-year-old lady with underlying history of sarcoidosis, rheumatoid arthritis, MGUS, emphysema admitted on 08/18/2023 with septic shock secondary to streptococcal pneumonia requiring pressor support and intubation, further complicated by acute renal failure now requiring hemodialysis support and uremic encephalopathy. Extubated uneventfully on 08/29/2023. Transferred to telemetry of [facility] on 08/31/2023. On 09/03/2023 daily patient with progressive hypoxia and alteration of mental status secondary to aspiration requiring intubation. Extubated uneventfully on 09/04/2023. Overnight events as above. Critical Care Time (minutes): 60 Physical Exam Vital Signs: Vital Signs: Last Vital Signs Temp 98.9 F 09/04/23 12:00 Pulse 86 09/04/23 12:00 Resp 34 H 09/04/23 12:00 BP 124/54 L 09/04/23 12:00 Pulse Ox 97 09/04/23 12:00 O2 Del Method High Flow Nasal C annula 09/04/23 12:00 O2 Flow Rate 40 09/04/23 12:00 FiO2 35 09/04/23 12:00 BMI result Body Mass Index 28.5 Const: General: no acute distress, alert, awake and confusion Orientation/consciousness: confusion Eyes: Sclerae: sclerae normal EOM: EOMs intact bilaterally Neck: Neck: Yes no lymphadenopathy, Yes trachea midline and Yes supple Resp: Effort & Inspection: normal respiratory effort and no respiratory distress Auscultation: clear to auscultation bilaterally Cardio: Rate: regular rate Rhythm: regular rhythm Heart sounds: no gallops, no murmurs and no rubs GI: Palpation (GI): Soft to palpation and Other GI palpation findings present ( Nontender) Auscultation: normal bowel sounds Neuro: General: confusion Extrem: General: No clubbing, No cyanosis and Yes edema ( trace bilateral) Objective Data Labs 09/04/23 05:19 09/04/23 05:19 Labs: Laboratory Results - last 24 hr 09/03/23 09/03/23 09/03/23 20:25 21:01 21:22 WBC 17.1 H RBC 3.65 L Hgb 10.8 L Hct 34.0 L MCV 93.2 MCH 29.6 MCHC 31.8 RDW 15.3 Plt Count 411 H MPV 10.8 Immature Gran % (Auto) 1.3 H Neut % (Auto) 76.5 H Lymph % (Auto) 10.0 L [place] % (Auto) 11.5 H Eos % (Auto) 0.1 Baso % (Auto) 0.6 Lymph # (Auto) 1.7 [place] # (Auto) 2.0 H Eos # (Auto) 0.0 Baso # (Auto) 0.1 Abs Immat Gran (auto) 0.22 H Absolute Neuts (auto) 13.1 H Absolute Nucleated RBC 0.020 H Nucleated RBC % (auto) 0.1 Smear Tech's Comments VERIFIED O2 Saturation 99.0 ABG pH at Pt Temp 7.47 H ABG pCO2 at Pt Temp 43 ABG pO2 at Pt Temp 310 H ABG HCO3 32 H ABG Base Excess (Actual) 8.1 VBG pH VBG pCO2 VBG pO2 VBG HCO3 VBG O2 Saturation VBG Base Excess Sodium 135 Potassium 4.0 D Chloride 95 L Carbon Dioxide 15 L Anion Gap 29 H BUN 52 H Creatinine 3.36 H Estim Creat Clear Calc 15.8 Estimated GFR 13 POC Glucose 103 Random Glucose 119 H Lactic Acid Lactic Acid F/U @ 2Hr Lactic Acid F/U @ 4Hr Calcium 9.0 D Phosphorus 5.7 H Magnesium 2.8 H Total Bilirubin 1.1 H AST 47 H ALT 24 Alkaline Phosphatase 230 H Troponin I High Sens 21.8 H D B-Natriuretic Peptide 117 H Total Protein 9.6 H Albumin 4.3 09/03/23 09/04/23 09/04/23 21:57 00:14 03:06 WBC RBC Hgb Hct MCV MCH MCHC RDW Plt Count MPV Immature Gran % (Auto) Neut % (Auto) Lymph % (Auto) [place] % (Auto) Eos % (Auto) Baso % (Auto) Lymph # (Auto) [place] # (Auto) Eos # (Auto) Baso # (Auto) Abs Immat Gran (auto) Absolute Neuts (auto) Absolute Nucleated RBC Nucleated RBC % (auto) Smear Tech's Comments O2 Saturation ABG pH at Pt Temp ABG pCO2 at Pt Temp ABG pO2 at Pt Temp ABG HCO3 ABG Base Excess (Actual) VBG pH VBG pCO2 VBG pO2 VBG HCO3 VBG O2 Saturation VBG Base Excess Sodium Potassium Chloride Carbon Dioxide Anion Gap BUN Creatinine Estim Creat Clear Calc Estimated GFR POC Glucose Random Glucose Lactic Acid 5.8 H* Lactic Acid F/U @ 2Hr 2.4 H* Lactic Acid F/U @ 4Hr 1.4 Calcium Phosphorus Magnesium Total Bilirubin AST ALT Alkaline Phosphatase Troponin I High Sens B-Natriuretic Peptide Total Protein Albumin 09/04/23 09/04/23 05:17 05:19 WBC 7.7 RBC 2.88 L D Hgb 8.5 L D Hct 25.7 L D MCV 89.2 MCH 29.5 MCHC 33.1 RDW 14.6 Plt Count 364 MPV 10.6 Immature Gran % (Auto) 1.3 H Neut % (Auto) 56.4 Lymph % (Auto) 22.2 [place] % (Auto) 18.8 H Eos % (Auto) 0.1 Baso % (Auto) 1.2 Lymph # (Auto) 1.7 [place] # (Auto) 1.4 H Eos # (Auto) 0.0 Baso # (Auto) 0.1 Abs Immat Gran (auto) 0.10 H Absolute Neuts (auto) 4.3 Absolute Nucleated RBC 0.000 Nucleated RBC % (auto) 0.0 Smear Tech's Comments O2 Saturation ABG pH at Pt Temp ABG pCO2 at Pt Temp ABG pO2 at Pt Temp ABG HCO3 ABG Base Excess (Actual) VBG pH 7.55 H VBG pCO2 23 VBG pO2 77 VBG HCO3 21 L VBG O2 Saturation 96.0 VBG Base Excess 0.1 Sodium 139 Potassium 3.9 Chloride 94 L Carbon Dioxide 19 L Anion Gap 30 H BUN 67 H Creatinine 3.96 H Estim Creat Clear Calc 13.4 Estimated GFR 11 POC Glucose Random Glucose 118 H Lactic Acid Lactic Acid F/U @ 2Hr Lactic Acid F/U @ 4Hr Calcium 8.0 L D Phosphorus 7.8 H Magnesium 2.4 Total Bilirubin 0.7 AST 38 H ALT 19 Alkaline Phosphatase 180 H Troponin I High Sens B-Natriuretic Peptide Total Protein 8.7 H Albumin 4.5 Microbiology Microbiology Results: Microbiology 09/03/23 22:53 Sputum - Suctioned Gram Stain - Final 09/01/23 06:30 Blood - Venous Blood Culture - Preliminary No growth after 48 hours. 09/01/23 06:30 Blood - Venous Blood Culture - Preliminary No growth after 48 hours. 08/26/23 13:39 Blood - Venous Blood Culture - Final No growth after 5 days. 08/26/23 13:39 Blood - Venous Blood Culture - Final No growth after 5 days. 08/18/23 21:45 Blood - Venous Blood Culture - Final Streptococcus pneumoniae 08/18/23 20:17 Blood - Venous Blood Culture - Final Streptococcus pneumoniae Progress Note: A&P Assessment and plan (1) Uremic encephalopathy: Status: Acute (2) Acute hypoxic respiratory failure: Status: Acute (3) Pulmonary aspiration: Status: Acute (4) BRE (acute kidney injury): Status: Acute (5) MGUS (monoclonal gammopathy of unknown significance): Status: Acute Plan Assessment: 73-year-old lady admitted with septic shock secondary to streptococcal pneumonia further complicated by acute renal failure requiring hemodialysis support and septic encephalopathy Plan: Neuro: Confused secondary to uremic encephalopathy, improving. Cardiac: No acute issues. Pulmonary: Acute hypoxic respiratory failure secondary to aspiration event, initially requiring ventilatory support now extubated on 09/04/2023. Continue to titrate off supplemental oxygen as tolerated. Renal: Acute renal failure. Nephrology service care appreciated. Continue hemodialysis support. Underlying MGUS. Endo: No acute issues. GI: No acute issues. ID: Empirically covered for aspiration pneumonia versus pneumonitis. Heme/Onc: No acute issues. Psych: No acute issues. Miscellaneous: No acute issues. Prophylaxis: Heparin Diet: pending swallow evaluation Quality Stroke Does the patient have a stroke diagnosis?: No VTE Prior VTE?: No VTE Risk Level:: Medical - moderate - high VTE Device Contraindication: N/A - Device Ordered VTE Drug Contraindication: Treatment Not Tolerated
--- NOTE | 2023-09-04 15:31 | P.PNNP_ITS ---
Subjective Subjective Date of Service: 09/04/23 Interval history: Extubated uneventfully on 09/04/2023. Dialyzed yesterday Remains oliguric Physical Exam 2 Vital Signs: Vital Signs: Last Vital Signs Temp 98.9 F 09/04/23 12:00 Pulse 82 09/04/23 15:00 Resp 34 H 09/04/23 15:00 BP 145/55 H 09/04/23 15:00 Pulse Ox 99 09/04/23 15:00 O2 Del Method High Flow Nasal C annula 09/04/23 15:00 O2 Flow Rate 40 09/04/23 15:00 FiO2 35 09/04/23 15:00 BMI result Body Mass Index 28.5 Objective Data Labs 09/04/23 05:19 09/04/23 05:19 Labs: Laboratory Results - last 24 hr 09/03/23 09/03/23 09/03/23 20:25 21:01 21:22 WBC 17.1 H RBC 3.65 L Hgb 10.8 L Hct 34.0 L MCV 93.2 MCH 29.6 MCHC 31.8 RDW 15.3 Plt Count 411 H MPV 10.8 Immature Gran % (Auto) 1.3 H Neut % (Auto) 76.5 H Lymph % (Auto) 10.0 L [place]mer[place] % (Auto) 11.5 H Eos % (Auto) 0.1 Baso % (Auto) 0.6 Lymph # (Auto) 1.7 [place] # (Auto) 2.0 H Eos # (Auto) 0.0 Baso # (Auto) 0.1 Abs Immat Gran (auto) 0.22 H Absolute Neuts (auto) 13.1 H Absolute Nucleated RBC 0.020 H Nucleated RBC % (auto) 0.1 Smear Tech's Comments VERIFIED O2 Saturation 99.0 ABG pH at Pt Temp 7.47 H ABG pCO2 at Pt Temp 43 ABG pO2 at Pt Temp 310 H ABG HCO3 32 H ABG Base Excess (Actual) 8.1 VBG pH VBG pCO2 VBG pO2 VBG HCO3 VBG O2 Saturation VBG Base Excess Sodium 135 Potassium 4.0 D Chloride 95 L Carbon Dioxide 15 L Anion Gap 29 H BUN 52 H Creatinine 3.36 H Estim Creat Clear Calc 15.8 Estimated GFR 13 POC Glucose 103 Random Glucose 119 H Lactic Acid Lactic Acid F/U @ 2Hr Lactic Acid F/U @ 4Hr Calcium 9.0 D Phosphorus 5.7 H Magnesium 2.8 H Total Bilirubin 1.1 H AST 47 H ALT 24 Alkaline Phosphatase 230 H Troponin I High Sens 21.8 H D B-Natriuretic Peptide 117 H Total Protein 9.6 H Albumin 4.3 09/03/23 09/04/23 09/04/23 21:57 00:14 03:06 WBC RBC Hgb Hct MCV MCH MCHC RDW Plt Count MPV Immature Gran % (Auto) Neut % (Auto) Lymph % (Auto) [place] % (Auto) Eos % (Auto) Baso % (Auto) Lymph # (Auto) [place] # (Auto) Eos # (Auto) Baso # (Auto) Abs Immat Gran (auto) Absolute Neuts (auto) Absolute Nucleated RBC Nucleated RBC % (auto) Smear Tech's Comments O2 Saturation ABG pH at Pt Temp ABG pCO2 at Pt Temp ABG pO2 at Pt Temp ABG HCO3 ABG Base Excess (Actual) VBG pH VBG pCO2 VBG pO2 VBG HCO3 VBG O2 Saturation VBG Base Excess Sodium Potassium Chloride Carbon Dioxide Anion Gap BUN Creatinine Estim Creat Clear Calc Estimated GFR POC Glucose Random Glucose Lactic Acid 5.8 H* Lactic Acid F/U @ 2Hr 2.4 H* Lactic Acid F/U @ 4Hr 1.4 Calcium Phosphorus Magnesium Total Bilirubin AST ALT Alkaline Phosphatase Troponin I High Sens B-Natriuretic Peptide Total Protein Albumin 09/04/23 09/04/23 05:17 05:19 WBC 7.7 RBC 2.88 L D Hgb 8.5 L D Hct 25.7 L D MCV 89.2 MCH 29.5 MCHC 33.1 RDW 14.6 Plt Count 364 MPV 10.6 Immature Gran % (Auto) 1.3 H Neut % (Auto) 56.4 Lymph % (Auto) 22.2 [place]mer[place] % (Auto) 18.8 H Eos % (Auto) 0.1 Baso % (Auto) 1.2 Lymph # (Auto) 1.7 [place]mer[place] # (Auto) 1.4 H Eos # (Auto) 0.0 Baso # (Auto) 0.1 Abs Immat Gran (auto) 0.10 H Absolute Neuts (auto) 4.3 Absolute Nucleated RBC 0.000 Nucleated RBC % (auto) 0.0 Smear Tech's Comments O2 Saturation ABG pH at Pt Temp ABG pCO2 at Pt Temp ABG pO2 at Pt Temp ABG HCO3 ABG Base Excess (Actual) VBG pH 7.55 H VBG pCO2 23 VBG pO2 77 VBG HCO3 21 L VBG O2 Saturation 96.0 VBG Base Excess 0.1 Sodium 139 Potassium 3.9 Chloride 94 L Carbon Dioxide 19 L Anion Gap 30 H BUN 67 H Creatinine 3.96 H Estim Creat Clear Calc 13.4 Estimated GFR 11 POC Glucose Random Glucose 118 H Lactic Acid Lactic Acid F/U @ 2Hr Lactic Acid F/U @ 4Hr Calcium 8.0 L D Phosphorus 7.8 H Magnesium 2.4 Total Bilirubin 0.7 AST 38 H ALT 19 Alkaline Phosphatase 180 H Troponin I High Sens B-Natriuretic Peptide Total Protein 8.7 H Albumin 4.5 Microbiology Microbiology Results: Microbiology 09/03/23 22:53 Sputum - Suctioned Gram Stain - Final 09/01/23 06:30 Blood - Venous Blood Culture - Preliminary No growth after 48 hours. 09/01/23 06:30 Blood - Venous Blood Culture - Preliminary No growth after 48 hours. 08/26/23 13:39 Blood - Venous Blood Culture - Final No growth after 5 days. 08/26/23 13:39 Blood - Venous Blood Culture - Final No growth after 5 days. 08/18/23 21:45 Blood - Venous Blood Culture - Final Streptococcus pneumoniae 08/18/23 20:17 Blood - Venous Blood Culture - Final Streptococcus pneumoniae Procedures Date of Service Date of Service: 09/04/23 Assessment & Plan Assessment and plan (1) BRE (acute kidney injury): Status: Acute (2) MGUS (monoclonal gammopathy of unknown significance): Status: Acute (3) Sarcoidosis: Status: Acute (4) Rheumatoid arthritis involving multiple joints: Status: Acute (5) Streptococcal pneumonia: Status: Acute Plan Assessment: 73-year-old lady admitted with septic shock secondary to streptococcal pneumonia further complicated by acute renal failure requiring hemodialysis support and septic encephalopathy. Oliguric and requiring dialysis. Dialyzed yesterday Plan: Monitor UO Avoid contrast Plan for dialysis tomorrow Time Spent With Patient Time: Total time managing care of this patient today ____ minutes. Progress Note: Quality Stroke Does the patient have a stroke diagnosis?: No
--- NOTE | 2023-09-04 17:24 | MHC.SL.SWA ---
Speech Pathologist Impression: Risk of aspiration, oropharyngeal dysphagia Risk of Aspiration Due to: Lethargy Medically Fragile History of Pneumonia Poor PO Intake Hx of Recent Extubation Weak Cough Weak Voice Dysphasia Diet Status: Continue NPO post-extubation Liquid Consistency and Strategies for Safe Swallow: Liquid Intake Recommendation: NPO Solid Food Consistency: Dietary Recommendations: NPO Additional Modifications to Solid Foods: Recommend continue NPO status at this time as pt is consistently presenting with overt s/s of aspiration with PO intake. Pt may need RD/GI consult to determine if alternate means of nutrition (i.e. NGT, IV hydration) is warranted in the mean time. SOFTWARE PROJECT MANAGER discussed observations with Dr. Hawkins. Per MD, pt w/ recurrent aspiration, residual food noted in the pharynx when pt was intubated. SOFTWARE PROJECT MANAGER is called in tomorrow morning at request of MD to re-evaluate pt. Should concerns persist, recommend further evaluation w/ MBSS, which can possibly be scheduled for Thursday with Radiology. Oral Medication Intake: NPO Please contact the pharmacy regarding appropriate crushable or liquid drug formulations that are available whenever modified delivery is recommended. Supervision While Eating and Drinking for Safe Swallow: PO with SOFTWARE PROJECT MANAGER Swallowing Recommended Treatments: Compens. Strategy Educat. Recommendation for Speech: Inpatient Speech Therapy MBSS Cold Roll Operator Clinican/Clinical Fellow: Yes Supervisory Statement: I have reviewed and agree with the student/clinical fellow's documentation: N/A Speech Language Pathologist: Pauline Avila M.A., [facility]-SOFTWARE PROJECT MANAGER
[2023-09-04] MEDS: Amiodarone HCL 900 MG in 0.9 % Sodium Chloride 500 ML 17.27 MG IVCONT (20:38)
[2023-09-05] VITALS (24 sets, daily range): BP systolic 112–154; BP diastolic 63–78; PULSE 77–98; RESP 20–39; TEMP 36–37.1; O2SAT 91–100; BMI 28.5
[2023-09-05] MEDS: Piperacillin Sodium/Tazobactam 4.5 GM in 0.9 % Sodium Chloride 100 ML IV (04:26)
[2023-09-05] MEDS: Heparin Sodium,Porcine 5,000 UNIT/ML VIAL 5000 UNIT SUBCUT ×4 (04:26→23:31)
[2023-09-05 05:30] LABS: VBG Base Excess -6.3 mmol/L; VBG HCO3 16 mmol/L (22-26); VBG pCO2 24 mmHg; VBG pH 7.42 (7.32-7.43); VBG pO2 66 mmHg
[2023-09-05 05:36] LABS: MANUAL DIFF FLAG NO
[2023-09-05 05:40] LABS: Basophils Absolute Auto 0.2 X10*3/uL (0.0-0.2); Eosinophils Percent Auto 0.3 % (0-4); Hematocrit 27.1 % (37.0-47.0); Imm Gran Abs Auto 0.08 X10*3/uL (0.00-0.03); Imm Gran Pct Auto 0.8 % (0.0-0.4); Lymphocytes Absolute Auto 1.5 X10*3/uL (1.2-4.9); Lymphocytes Percent Auto 15.3 % (20-40); Mean Corpuscular HGB Conc 33.2 g/dl (31.0-35.0); Mean Corpuscular Hemoglobin 29.9 pg (27.0-33.0); Mean Platelet Volume 11.1 fL (9.4-12.3); Monocytes Absolute Auto 1.5 X10*3/uL (0.1-1.2); Monocytes Percent Auto 15.6 % (2-11); NRBC Pct Auto 0.2 /100WBC (0.0-0.2); Neutrophils Absolute Auto 6.3 x10*3/uL (2.0-8.3); Platelet Count 349 X10*3/uL (160-400); Red Blood Count 3.01 X10*6/uL (4.20-5.50); Red Cell Distribution Width 14.8 % (11.0-16.0); White Blood Count 9.5 X10*3/uL (4.8-10.8)
[2023-09-05 06:03] LABS: Alanine Aminotransferase 17 U/L (0-31); Albumin Level 4.1 g/dL (3.5-5.0); Alkaline Phosphatase 146 U/L (39-117); Anion Gap 32 (12-20); Aspartate Amino Transferase 33 U/L (5-31); Bilirubin Total 0.6 mg/dL (0.0-1.0); Blood Urea Nitrogen 96 mg/dL (9-16); Calcium 7.6 mg/dL (8.4-10.2); Carbon Dioxide 15 mmol/L (22-29); Chloride 97 mmol/L (96-108); Creatinine Clr Calc Pharmacy 9.2; Estimated Glomerular Filt Rate 7; Glucose Random 71 mg/dL (60-115); Magnesium 2.5 mg/dL (1.6-2.6); Phosphorus 10.4 mg/dL (2.7-4.5); Potassium 4.1 mmol/L (3.3-5.1); Sodium 140 mmol/L (135-145); Total Protein 8.5 g/dL (6.5-8.0)
[2023-09-05 06:40] LABS: Venous Blood Gas Refer to POC result
[2023-09-05] MEDS: methylPREDNISolone Sod Succ 40 MG/ML VIAL 8 MG IVPUSH (08:37)
[2023-09-05] MEDS: Nystatin Powder 15 GM BOTTLE 1 APPL TOPICAL ×2 (08:38→20:27)
[2023-09-05 10:52] LABS: Glucose, Whole Blood 74 mg/dL (60-115)
--- NOTE | 2023-09-05 10:59 | P.PNCC_ITS ---
Subjective Subjective Date of Service: 09/05/23 Interval History: 73-year-old lady with underlying history of sarcoidosis, rheumatoid arthritis, MGUS, emphysema admitted on 08/18/2023 with septic shock secondary to streptococcal pneumonia requiring pressor support and intubation, further complicated by acute renal failure now requiring hemodialysis support and uremic encephalopathy. Extubated uneventfully on 08/29/2023. Transferred to telemetry of [facility] on 08/31/2023. On 09/03/2023 daily patient with progressive hypoxia and alteration of mental status secondary to aspiration requiring intubation. Extubated uneventfully on 09/04/2023. No events overnight. Failed initial bedside swallow evaluation. Critical Care Time (minutes): 0 Physical Exam 2 Vital Signs: Vital Signs: Last Vital Signs Temp 98.6 F 09/05/23 10:00 Pulse 90 09/05/23 10:00 Resp 34 H 09/05/23 10:00 BP 125/66 09/05/23 10:00 Pulse Ox 96 09/05/23 10:00 O2 Del Method Nasal Cannula 09/05/23 10:00 O2 Flow Rate 2 09/05/23 10:00 FiO2 25 09/04/23 17:00 BMI result Body Mass Index 28.5 Const: General: no acute distress, alert, awake and confusion O rientation/consciousness: confusion Eyes: Sclerae: sclerae normal EOM: EOMs intact bilaterally Neck: Neck: Yes no lymphadenopathy, Yes trachea midline and Yes supple Resp: Effort & Inspection: normal respiratory effort and no respiratory distress Auscultation: clear to auscultation bilaterally Cardio: Rate: regular rate Rhythm: regular rhythm Heart sounds: no gallops, no murmurs and no rubs GI: Palpation (GI): Soft to palpation and Other GI palpation findings present ( Nontender) Auscultation: normal bowel sounds Neuro: General: confusion Extrem: General: Yes no pedal edema, No clubbing and No cyanosis Objective Data Labs 09/05/23 05:09 09/05/23 05:09 Labs: Laboratory Results - last 24 hr 09/05/23 09/05/23 09/05/23 05:09 05:23 10:47 WBC 9.5 RBC 3.01 L Hgb 9.0 L Hct 27.1 L MCV 90.0 MCH 29.9 MCHC 33.2 RDW 14.8 Plt Count 349 MPV 11.1 Immature Gran % (Auto) 0.8 H Neut % (Auto) 66.0 Lymph % (Auto) 15.3 L [place] % (Auto) 15.6 H Eos % (Auto) 0.3 Baso % (Auto) 2.0 Lymph # (Auto) 1.5 [place] # (Auto) 1.5 H Eos # (Auto) 0.0 Baso # (Auto) 0.2 Abs Immat Gran (auto) 0.08 H Absolute Neuts (auto) 6.3 Absolute Nucleated RBC 0.020 H Nucleated RBC % (auto) 0.2 VBG pH 7.42 VBG pCO2 24 VBG pO2 66 VBG HCO3 16 L VBG O2 Saturation 89.0 VBG Base Excess -6.3 Sodium 140 Potassium 4.1 Chloride 97 Carbon Dioxide 15 L Anion Gap 32 H BUN 96 H Creatinine 5.78 H* Estim Creat Clear Calc 9.2 Estimated GFR 7 POC Glucose 74 Random Glucose 71 Calcium 7.6 L Phosphorus 10.4 H Magnesium 2.5 Total Bilirubin 0.6 AST 33 H ALT 17 Alkaline Phosphatase 146 H Total Protein 8.5 H Albumin 4.1 Microbiology Microbiology Results: Microbiology 09/03/23 21:22 Blood - Venous Blood Culture - Preliminary No growth after 24 hours. 09/03/23 21:22 Blood - Venous Blood Culture - Preliminary No growth after 24 hours. 09/03/23 22:53 Sputum - Suctioned Gram Stain - Final 09/01/23 06:30 Blood - Venous Blood Culture - Preliminary No growth after 48 hours. 09/01/23 06:30 Blood - Venous Blood Culture - Preliminary No growth after 48 hours. 08/26/23 13:39 Blood - Venous Blood Culture - Final No growth after 5 days. 08/26/23 13:39 Blood - Venous Blood Culture - Final No growth after 5 days. 08/18/23 21:45 Blood - Venous Blood Culture - Final Streptococcus pneumoniae 08/18/23 20:17 Blood - Venous Blood Culture - Final Streptococcus pneumoniae Progress Note: A&P Assessment and plan (1) BRE (acute kidney injury): Status: Acute (2) Pulmonary aspiration: Status: Acute (3) MGUS (monoclonal gammopathy of unknown significance): Status: Acute (4) Acute hypoxic respiratory failure: Status: Acute Plan Assessment: 73-year-old lady admitted with septic shock secondary to streptococcal pneumonia further complicated by acute renal failure requiring hemodialysis support and septic encephalopathy Plan: Neuro: Confused secondary to uremic encephalopathy, waxing and waning. Cardiac: No acute issues. Pulmonary: Acute hypoxic respiratory failure secondary to aspiration event, initially requiring ventilatory support now extubated on 09/04/2023. Continue to titrate off supplemental oxygen as tolerated. Renal: Acute renal failure. Nephrology service care appreciated. Continue hemodialysis support. Underlying MGUS. Endo: No acute issues. GI: No acute issues. ID: Empirically covered for aspiration pneumonitis. Heme/Onc: No acute issues. Psych: No acute issues. Miscellaneous: No acute issues. Prophylaxis: Heparin Diet: pending swallow evaluation Quality Stroke Does the patient have a stroke diagnosis?: No VTE Prior VTE?: No VTE Risk Level:: Medical - moderate - high VTE Device Contraindication: N/A - Device Ordered VTE Drug Contraindication: Treatment Not Tolerated
[2023-09-05 11:28] LABS: Vancomycin Random 10.5 mcg/mL (15-20)
--- NOTE | 2023-09-05 13:19 | MHC.SL.DTX ---
Dysphagia Diet modifications: Last documented Solid diet consistencies: NPO Last documented Liquid consistency: NPO Last documented Medication Administration: Changes made to current diet?: No: No changes at this time Liquid Consistency and Strategies: Liquid Intake Recommendation: Honey Thick Compensatory Strategies for Safe Swallow: No Straws Liquids by Teaspoon Only Compensatory Strategies for Safe Swallow(b): Sitting Upright (90 deg) No Straw Small Bites and Sips Alternate Liquids/Solids Rate of Ingestion Change Oral Check Avoid Specific Foods Solid Food Consistency: Dietary Recommendations: Pureed (NDD1) Additional Modifications to Solids: Oral Medication Intake: NPO Strategies and Precautions to be Taken for Safe Swallow: Sitting Upright (90 deg) No Straw Small Bites and Sips Alternate Liquids/Solids Rate of Ingestion Change Oral Check Avoid Specific Foods Supervision While Eating and/Drinking: Total Assistance (1:1) Foods to Avoid: Swallowing Recommended Treatments: Compens. Strategy Educat. Level of Impact on: Daily activities: Interpersonal interactions: Education: Employment: Community: Prognosis for Improvement: Good Recommendation for Speech: Inpatient Speech Therapy Speech Therapy through [facility] Speech Therapy through Rehab Facility Additional Comments: Treatment: PLATER BARREL recommending reinstate diet of Puree Solids and Honey-Thick Liquids. Medications Crushed in Puree. 1:1 assistance with all PO. Strict aspiration precautions with all PO including optimal repositioning, slow pace, small bites/sips, hold tray at signs of fatigue. PLATER BARREL will continue to follow. Carry Out Clerk Clinican/Clinical Fellow: No Supervisory Statement: I have reviewed and agree with the student/clinical fellow's documentation: N/A Speech Language Pathologist: Davon Garcia M.A., CCC-PLATER BARREL
--- NOTE | 2023-09-05 16:56 | P.PNNP_ITS ---
Subjective Subjective Date of Service: 09/05/23 Interval history: 73-year-old lady with underlying history of sarcoidosis, rheumatoid arthritis, MGUS, emphysema admitted on 08/18/2023 with septic shock secondary to streptococcal pneumonia requiring pressor support and intubation, further complicated by acute renal failure now requiring hemodialysis support. Extubated uneventfully on 08/29/2023nd went to telemetry. On 09/03/2023 daily patient with progressive hypoxia and alteration of mental status secondary to aspiration requiring intubation. Extubated uneventfully on 09/04/2023. Continues to be oligoanuric. Dialysis on and then again today. Predialysis bicarb today was 15. Physical Exam 2 Vital Signs: Vital Signs: Last Vital Signs Temp 98 F 09/05/23 16:00 Pulse 95 09/05/23 16:00 Resp 32 H 09/05/23 16:00 BP 130/63 09/05/23 16:00 Pulse Ox 93 09/05/23 16:00 O2 Del Method Nasal Cannula 09/05/23 16:00 O2 Flow Rate 2 09/05/23 16:00 FiO2 25 09/04/23 17:00 BMI result Body Mass Index 28.5 Const: General: cooperative, no acute distress, ill appearing and tired appearing Orientation/consciousness: oriented to person and oriented to place HEENT: Ears: hearing grossly impaired Eyes: General: appearance normal, both eyes and all related structures Neck: Other: Left IJ line Chest: Chest palpation & inspection: normal inspection of the chest and normal palpation of entire chest wall Resp: Auscultation: clear to auscultation bilaterally Cardio: Jugular venous distension: no JVD Rate: regular rate Rhythm: r egular rhythm Heart sounds: S1 normal heart sound present and S2 normal heart sound present GI: Percussion: Yes normal to percussion Auscultation: normal bowel sounds Neuro: General: oriented to person, oriented to place, moves all extremities and no focal motor deficits Extrem: General: Yes normal to inspection Objective Data Labs 09/05/23 05:09 09/05/23 05:09 Labs: Laboratory Results - last 24 hr 09/05/23 09/05/23 09/05/23 05:09 05:23 10:47 WBC 9.5 RBC 3.01 L Hgb 9.0 L Hct 27.1 L MCV 90.0 MCH 29.9 MCHC 33.2 RDW 14.8 Plt Count 349 MPV 11.1 Immature Gran % (Auto) 0.8 H Neut % (Auto) 66.0 Lymph % (Auto) 15.3 L [place] % (Auto) 15.6 H Eos % (Auto) 0.3 Baso % (Auto) 2.0 Lymph # (Auto) 1.5 [place] # (Auto) 1.5 H Eos # (Auto) 0.0 Baso # (Auto) 0.2 Abs Immat Gran (auto) 0.08 H Absolute Neuts (auto) 6.3 Absolute Nucleated RBC 0.020 H Nucleated RBC % (auto) 0.2 VBG pH 7.42 VBG pCO2 24 VBG pO2 66 VBG HCO3 16 L VBG O2 Saturation 89.0 VBG Base Excess -6.3 Sodium 140 Potassium 4.1 Chloride 97 Carbon Dioxide 15 L Anion Gap 32 H BUN 96 H Creatinine 5.78 H* Estim Creat Clear Calc 9.2 Estimated GFR 7 POC Glucose 74 Random Glucose 71 Calcium 7.6 L Phosphorus 10.4 H Magnesium 2.5 Total Bilirubin 0.6 AST 33 H ALT 17 Alkaline Phosphatase 146 H Total Protein 8.5 H Albumin 4.1 Random Vancomycin 09/05/23 10:55 WBC RBC Hgb Hct MCV MCH MCHC RDW Plt Count MPV Immature Gran % (Auto) Neut % (Auto) Lymph % (Auto) [place] % (Auto) Eos % (Auto) Baso % (Auto) Lymph # (Auto) [place] # (Auto) Eos # (Auto) Baso # (Auto) Abs Immat Gran (auto) Absolute Neuts (auto) Absolute Nucleated RBC Nucleated RBC % (auto) VBG pH VBG pCO2 VBG pO2 VBG HCO3 VBG O2 Saturation VBG Base Excess Sodium Potassium Chloride Carbon Dioxide Anion Gap BUN Creatinine Estim Creat Clear Calc Estimated GFR POC Glucose Random Glucose Calcium Phosphorus Magnesium Total Bilirubin AST ALT Alkaline Phosphatase Total Protein Albumin Random Vancomycin 10.5 L Microbiology Microbiology Results: Microbiology 09/03/23 22:53 Sputum - Suctioned Gram Stain - Final 09/03/23 22:53 Sputum - Suctioned Sputum Culture - Preliminary Yeast 09/03/23 21:22 Blood - Venous Blood Culture - Preliminary No growth after 24 hours. 09/03/23 21:22 Blood - Venous Blood Culture - Preliminary No growth after 24 hours. 09/01/23 06:30 Blood - Venous Blood Culture - Preliminary No growth after 48 hours. 09/01/23 06:30 Blood - Venous Blood Culture - Preliminary No growth after 48 hours. 08/26/23 13:39 Blood - Venous Blood Culture - Final No growth after 5 days. 08/26/23 13:39 Blood - Venous Blood Culture - Final No growth after 5 days. 08/18/23 21:45 Blood - Venous Blood Culture - Final Streptococcus pneumoniae 08/18/23 20:17 Blood - Venous Blood Culture - Final Streptococcus pneumoniae Procedures Date of Service Date of Service: 09/05/23 Assessment & Plan Assessment and plan (1) BRE (acute kidney injury): Status: Acute Assessment and Plan: BRE in the setting of sepsis/pulmonary sepsis; remains oligoanuric and requring dialysis Hx of MGUS; veryhigh kappa:lambda ratio of 10; possible myeloma kidney needs to be considered as well Low complements also raise possible IC mediated GN or mixed CTD given sarcoid and RA If renal function does not recover, will consider renal biopsy (2) MGUS (monoclonal gammopathy of unknown significance): Status: Acute Assessment and Plan: Significantly elevated kappa: lambda in a pt with IgG kappa MGUS in the past Please consult Hematology (3) Hyperphosphatemia: Status: Acute Assessment and Plan: Hyperphosphatemia quite severe Start renvella or equivalent with meals now: renvella powder ; avoid calcium containing binder with this high of phos (4) Anemia: Status: Acute Assessment and Plan: Has BRE Was very ill Also underlying MGUS Plan 1. HD today and T, Th S 2. Add phos binder 3. Check ds DNA 4. May need renal biopsy 5. Hematology Consult as noted above Spoke to family at bedside Time Spent With Patient Time: Total time managing care of this patient today ____ minutes. Progress Note: Quality Stroke Does the patient have a stroke diagnosis?: No
--- NOTE | 2023-09-05 20:51 | PM.EVENT ---
Documented by User: Alex Murrieta NP 09/05/23 20:55 Event Note Date of Service: 09/05/23 Event Note: Patient and family reporting new onset hearing loss unknown start time today. Patient able to answer questions with the use of whiteboard. She is alert, able to answer questions appropiately. No new neurological changes in exam. Will obtain head CT. Time Spent With Patient Time: Total time managing care of this patient today ____ minutes. Documented by User: Wilberto Hawkins MD 09/06/23 11:58 Event Note Date of Service: 09/06/23
[2023-09-05] MEDS: HYDROmorphone HCl 0.5 MG/0.5 ML SYRINGE 0.25 MG IVPUSH (23:21)
[2023-09-06] VITALS (23 sets, daily range): BP systolic 122–162; BP diastolic 63–88; PULSE 86–96; RESP 21–32; TEMP 36.2–36.5; O2SAT 92–99; BMI 28.5
[2023-09-06 05:43] LABS: VBG Base Excess -5.1 mmol/L; VBG HCO3 17 mmol/L (22-26); VBG pCO2 26 mmHg; VBG pH 7.43 (7.32-7.43); VBG pO2 55 mmHg
[2023-09-06 05:47] LABS: MANUAL DIFF FLAG NO
[2023-09-06 05:47] LABS: Venous Blood Gas Refer to POC result
[2023-09-06 05:50] LABS: Basophils Absolute Auto 0.1 X10*3/uL (0.0-0.2); Eosinophils Percent Auto 0.3 % (0-4); Hematocrit 30.4 % (37.0-47.0); Hemoglobin 9.9 g/dl (12.0-16.0); Imm Gran Abs Auto 0.05 X10*3/uL (0.00-0.03); Imm Gran Pct Auto 0.8 % (0.0-0.4); Lymphocytes Absolute Auto 1.1 X10*3/uL (1.2-4.9); Mean Corpuscular HGB Conc 32.6 g/dl (31.0-35.0); Mean Corpuscular Hemoglobin 29.3 pg (27.0-33.0); Mean Corpuscular Volume 89.9 fL (80.0-98.0); Mean Platelet Volume 10.7 fL (9.4-12.3); Monocytes Absolute Auto 1.2 X10*3/uL (0.1-1.2); Monocytes Percent Auto 19.7 % (2-11); Neutrophils Absolute Auto 3.5 x10*3/uL (2.0-8.3); Neutrophils Percent Auto 59.2 % (45-73); Platelet Count 377 X10*3/uL (160-400); Red Blood Count 3.38 X10*6/uL (4.20-5.50); Red Cell Distribution Width 14.8 % (11.0-16.0); White Blood Count 5.9 X10*3/uL (4.8-10.8)
[2023-09-06 06:19] LABS: Albumin Level 4.5 g/dL (3.5-5.0); Anion Gap 27 (12-20); Blood Urea Nitrogen 65 mg/dL (9-16); Calcium 8.3 mg/dL (8.4-10.2); Carbon Dioxide 17 mmol/L (22-29); Chloride 96 mmol/L (96-108); Creatinine Clr Calc Pharmacy 12.1; Estimated Glomerular Filt Rate 10; Glucose Random 76 mg/dL (60-115); Magnesium 2.4 mg/dL (1.6-2.6); Phosphorus 8.3 mg/dL (2.7-4.5); Potassium 3.9 mmol/L (3.3-5.1); Sodium 136 mmol/L (135-145)
[2023-09-06] MEDS: methylPREDNISolone Sod Succ 40 MG/ML VIAL 8 MG IVPUSH (09:22)
[2023-09-06] MEDS: Heparin Sodium,Porcine 5,000 UNIT/ML VIAL 5000 UNIT SUBCUT (09:22)
[2023-09-06] MEDS: Lidocaine 4 % Patch ADH..PATCH 2 PATCH TRANSDERMA (09:23)
[2023-09-06] MEDS: Calcium Gluconate/NaCl,Iso-Osm 1 GM/50 ML PLAST..BAG IV (09:23)
[2023-09-06] MEDS: Nystatin Powder 15 GM BOTTLE 1 APPL TOPICAL ×2 (11:34→19:45)
--- NOTE | 2023-09-06 12:04 | P.PNCC_ITS ---
Subjective Subjective Date of Service: 09/06/23 Interval History: 73-year-old lady with underlying history of sarcoidosis, rheumatoid arthritis, MGUS, emphysema admitted on 08/18/2023 with septic shock secondary to streptococcal pneumonia requiring pressor support and intubation, further complicated by acute renal failure now requiring hemodialysis support and uremic encephalopathy. Extubated uneventfully on 08/29/2023. Transferred to telemetry of [facility] on 08/31/2023. On 09/03/2023 daily patient with progressive hypoxia and alteration of mental status secondary to aspiration requiring intubation. Extubated uneventfully on 09/04/2023. No events overnight. Patient with new onset of deafness CT had with no acute changes. Critical Care Time (minutes): 0 Physical Exam 2 Vital Signs: Vital Signs: Last Vital Signs Temp 97.7 F 09/06/23 04:00 Pulse 90 09/06/23 11:00 Resp 26 H 09/06/23 11:00 BP 137/72 09/06/23 11:00 Pulse Ox 95 09/06/23 11:00 O2 Del Method Nasal Cannula 09/06/23 11:00 O2 Flow Rate 2 09/06/23 11:00 FiO2 25 09/04/23 17:00 BMI result Body Mass Index 28.5 Const: General: no acute distress, alert and awake Eyes: Sclerae: sclerae normal EOM: EOMs intact bilaterally Neck: Neck: Yes no lymphadenopathy, Yes trachea midline and Yes supple Resp: Effort & Inspection: normal respiratory effort and no respiratory distress Auscultation: clear to auscultation bilaterally Cardio: Rate: regular rate Rhythm: regular rhythm Heart sounds: no gallops, no murmurs and no rubs GI: Palpation (GI): Soft to palpation and Other GI palpation findings present ( Nontender) Auscultation: normal bowel sounds Extrem: General: Yes no pedal edema, No clubbing and No cyanosis Objective Data Labs 09/06/23 05:44 09/06/23 05:44 Labs: Laboratory Results - last 24 hr 09/06/23 09/06/23 05:36 05:44 WBC 5.9 RBC 3.38 L Hgb 9.9 L Hct 30.4 L MCV 89.9 MCH 29.3 MCHC 32.6 RDW 14.8 Plt Count 377 MPV 10.7 Immature Gran % (Auto) 0.8 H Neut % (Auto) 59.2 Lymph % (Auto) 19.0 L [place] % (Auto) 19.7 H Eos % (Auto) 0.3 Baso % (Auto) 1.0 Lymph # (Auto) 1.1 L [place] # (Auto) 1.2 Eos # (Auto) 0.0 Baso # (Auto) 0.1 Abs Immat Gran (auto) 0.05 H Absolute Neuts (auto) 3.5 Absolute Nucleated RBC 0.000 Nucleated RBC % (auto) 0.0 VBG pH 7.43 VBG pCO2 26 VBG pO2 55 VBG HCO3 17 L VBG O2 Saturation 82.0 VBG Base Excess -5.1 Sodium 136 Potassium 3.9 Chloride 96 Carbon Dioxide 17 L Anion Gap 27 H BUN 65 H Creatinine 4.42 H* Estim Creat Clear Calc 12.1 Estimated GFR 10 Random Glucose 76 Calcium 8.3 L D Phosphorus 8.3 H Magnesium 2.4 Albumin 4.5 Microbiology Microbiology Results: Microbiology 09/03/23 22:53 Sputum - Suctioned Gram Stain - Final 09/03/23 22:53 Sputum - Suctioned Sputum Culture - Final Laura albicans 09/01/23 06:30 Blood - Venous Blood Culture - Final No growth after 5 days. 09/01/23 06:30 Blood - Venous Blood Culture - Final No growth after 5 days. 09/03/23 21:22 Blood - Venous Blood Culture - Preliminary No growth after 48 hours. 09/03/23 21:22 Blood - Venous Blood Culture - Preliminary No growth after 48 hours. 08/26/23 13:39 Blood - Venous Blood Culture - Final No growth after 5 days. 08/26/23 13:39 Blood - Venous Blood Culture - Final No growth after 5 days. 08/18/23 21:45 Blood - Venous Blood Culture - Final Streptococcus pneumoniae 08/18/23 20:17 Blood - Venous Blood Culture - Final Streptococcus pneumoniae Progress Note: A&P Assessment and plan (1) Acute hearing loss: Status: Acute (2) BRE (acute kidney injury): Status: Acute (3) MGUS (monoclonal gammopathy of unknown significance): Status: Acute (4) Rheumatoid arthritis involving multiple joints: Status: Acute (5) Pulmonary aspiration: Status: Acute (6) Sarcoidosis: Status: Acute Plan Assessment: 73-year-old lady admitted with septic shock secondary to streptococcal pneumonia further complicated by acute renal failure requiring hemodialysis support and septic encephalopathy Plan: Neuro: Confused secondary to uremic encephalopathy, waxing and waning. Overnight with acute onset of hearing loss. CT head with no acute findings. Will obtain brain MRI. Cardiac: No acute issues. Pulmonary: Acute hypoxic respiratory failure secondary to aspiration event, initially requiring ventilatory support now extubated on 09/04/2023. Continue to titrate off supplemental oxygen as tolerated. Renal: Acute renal failure. Nephrology service care appreciated. Continue hemodialysis support. Underlying MGUS. Endo: No acute issues. GI: No acute issues. ID: Empirically covered for aspiration pneumonitis. Heme/Onc: No acute issues. Psych: No acute issues. Miscellaneous: No acute issues. Prophylaxis: Heparin Diet: pureed Quality Stroke Does the patient have a stroke diagnosis?: No VTE Prior VTE?: No VTE Risk Level:: Medical - moderate - high VTE Device Contraindication: N/A - Device Ordered VTE Drug Contraindication: Treatment Not Tolerated
--- NOTE | 2023-09-06 13:45 | PM.PNNEP ---
Subjective Subjective Date of Service: 09/06/23 Interval history: 73-year-old lady with underlying history of sarcoidosis, rheumatoid arthritis, MGUS, emphysema admitted on 08/18/2023 with septic shock secondary to streptococcal pneumonia requiring pressor support and intubation, further complicated by acute renal failure now requiring hemodialysis support and uremic encephalopathy. Extubated uneventfully on 08/29/2023. Transferred to telemetry of [facility] on 08/31/2023. On 09/03/2023 daily patient with progressive hypoxia and alteration of mental status secondary to aspiration requiring intubation. Extubated uneventfully on 09/04/2023. No events overnight. Patient with new onset of deafness CT had with no acute changes. Going for MRI now Physical Exam Vital Signs: Vital Signs: Last Vital Signs Temp 97.7 F 09/06/23 04:00 Pulse 96 09/06/23 13:00 Resp 31 H 09/06/23 13:00 BP 130/74 09/06/23 13:00 Pulse Ox 92 09/06/23 13:00 O2 Del Method Nasal Cannula 09/06/23 13:00 O2 Flow Rate 2 09/06/23 13:00 FiO2 25 09/04/23 17:00 BMI result Body Mass Index 28.5 Const: Other: General awake alert, pleasantly confused Neck supple no JVD. CVS regular rate rhythm, Respiratory lungs clear to auscultation, no respiratory distress, no wheeze, no rhonchi. Gastrointestinal abdomen soft, non tender, bowel sounds audible, no guarding , no rigidity. Extremities no edema. Neuro moving all 4 extremity ,speech difficult to understand, at times clear. Skin discoloration dorsum of both hands, dry scab on forearms General: cooperative, healthy appearing, comfortable, no acute distress, well developed, alert, awake, Physically active, confusion, ill appearing, lethargic ( [place]), tired appearing and other ( weak) Nutritional Appearance: Edematous Orientation/consciousness: oriented to person, oriented to place, patient oriented x3, confusion and lethargic ( [place]) HEENT: Head: Yes normal to inspection, Yes normocephalic and Yes atraumatic Ears: hearing grossly impaired Eyes: General: appearance normal, both eyes and all related structures Sclerae: sclerae normal EOM: EOMs intact bilaterally Neck: Other: Left IJ line Neck: Yes normal visual inspection, Yes full ROM, Yes no lymphadenopathy, Yes no meningeal signs, Yes trachea midline and Yes supple Chest: Chest palpation & inspection: normal inspection of the chest and normal palpation of entire chest wall Resp: Other: on ventilator Effort & Inspection: normal respiratory effort, abnormal respiratory pattern and no respiratory distress Auscultation: clear to auscultation bilaterally, crackles ( mild bilateral) and rales (Bilateral) Cardio: Jugular venous distension: no JVD Rate: regular rate and tachycardic Rhythm: regular rhythm Heart sounds: S1 normal heart sound present, S2 normal heart sound present, no gallops, no murmurs and no rubs GI: Other: no [place]'s sign Inspection: Yes normal to inspection, No Abdominal wall edema and No distended Palpation (GI): Soft to palpation, not firm, nontender, no guarding, not rigid and Other GI palpation findings present ( Nontender) Percussion: Yes normal to percussion Auscultation: normal bowel sounds : External Female Exam: normal external appearance Skin: Other: appreciable scattered purpura General skin exam: no rashes or lesions noted Neuro: Other: intubated, sedated General: oriented to person, oriented to place, patient oriented x3, tone normal, moves all extremities, no meningeal signs, no focal motor deficits and confusion Extrem: Other: non-pitting edema throughout General: Yes normal to inspection, Yes capillary refill normal, Yes no clubbing, cyanosis or edema, Yes no pedal edema, No clubbing, No cyanosis and Yes edema ( trace bilateral) Psych: Other: unable to assess Appearance: grossly normal Objective Data Labs 09/06/23 05:44 09/06/23 05:44 Labs: Laboratory Results - last 24 hr 09/06/23 09/06/23 05:36 05:44 WBC 5.9 RBC 3.38 L Hgb 9.9 L Hct 30.4 L MCV 89.9 MCH 29.3 MCHC 32.6 RDW 14.8 Plt Count 377 MPV 10.7 Immature Gran % (Auto) 0.8 H Neut % (Auto) 59.2 Lymph % (Auto) 19.0 L [place] % (Auto) 19.7 H Eos % (Auto) 0.3 Baso % (Auto) 1.0 Lymph # (Auto) 1.1 L [place] # (Auto) 1.2 Eos # (Auto) 0.0 Baso # (Auto) 0.1 Abs Immat Gran (auto) 0.05 H Absolute Neuts (auto) 3.5 Absolute Nucleated RBC 0.000 Nucleated RBC % (auto) 0.0 VBG pH 7.43 VBG pCO2 26 VBG pO2 55 VBG HCO3 17 L VBG O2 Saturation 82.0 VBG Base Excess -5.1 Sodium 136 Potassium 3.9 Chloride 96 Carbon Dioxide 17 L Anion Gap 27 H BUN 65 H Creatinine 4.42 H* Estim Creat Clear Calc 12.1 Estimated GFR 10 Random Glucose 76 Calcium 8.3 L D Phosphorus 8.3 H Magnesium 2.4 Albumin 4.5 Microbiology Microbiology Results: Microbiology 09/03/23 22:53 Sputum - Suctioned Gram Stain - Final 09/03/23 22:53 Sputum - Suctioned Sputum Culture - Final Laura albicans 09/01/23 06:30 Blood - Venous Blood Culture - Final No growth after 5 days. 09/01/23 06:30 Blood - Venous Blood Culture - Final No growth after 5 days. 09/03/23 21:22 Blood - Venous Blood Culture - Preliminary No growth after 48 hours. 09/03/23 21:22 Blood - Venous Blood Culture - Preliminary No growth after 48 hours. 08/26/23 13:39 Blood - Venous Blood Culture - Final No growth after 5 days. 08/26/23 13:39 Blood - Venous Blood Culture - Final No growth after 5 days. 08/18/23 21:45 Blood - Venous Blood Culture - Final Streptococcus pneumoniae 08/18/23 20:17 Blood - Venous Blood Culture - Final Streptococcus pneumoniae Procedures Date of Service Date of Service: 09/06/23 Assessment & Plan Assessment and plan (1) BRE (acute kidney injury): Status: Acute Assessment and Plan: Remains oligoanuric DDX includes ATN, but has underlying MGUS, low complements so ddx includes myeloma kidney, cryoglobulinemia. Doubt lupus nephritis or mixed connective tissue disease but possible given RA; postinfectious GN possible. Await cryoglobulins, MAXX, ds DNA May need renal biopsy given high [place]: lambda (2) MGUS (monoclonal gammopathy of unknown significance): Status: Acute (3) Metabolic acidosis: Status: Acute Assessment and Plan: Due to BRE This may necessitate dialysis tomorrow; if bicarb lower will need HD tomorrow am Time Spent With Patient Time: Total time managing care of this patient today ____ minutes. Progress Note: Quality Stroke Does the patient have a stroke diagnosis?: No
[2023-09-06] MEDS: Acetaminophen Supp 650 MG SUPP.RECT PR ×2 (18:40→23:33)
[2023-09-07] VITALS (20 sets, daily range): BP systolic 125–182; BP diastolic 60–90; PULSE 84–94; RESP 16–30; TEMP 36–36.6; O2SAT 93–99; BMI 30.8
[2023-09-07] MEDS: Heparin Sodium,Porcine 5,000 UNIT/ML VIAL 5000 UNIT SUBCUT ×3 (02:22→17:45)
[2023-09-07 05:04] LABS: VBG Base Excess -6.8 mmol/L; VBG HCO3 17 mmol/L (22-26); VBG pCO2 29 mmHg; VBG pH 7.37 (7.32-7.43); VBG pO2 58 mmHg
[2023-09-07 05:06] LABS: Venous Blood Gas Refer to POC result
[2023-09-07 06:03] LABS: MANUAL DIFF FLAG NO
[2023-09-07 06:04] LABS: Basophils Absolute Auto 0.1 X10*3/uL (0.0-0.2); Basophils Percent Auto 0.7 % (0-2); Eosinophils Percent Auto 0.6 % (0-4); Hemoglobin 9.9 g/dl (12.0-16.0); Imm Gran Abs Auto 0.05 X10*3/uL (0.00-0.03); Imm Gran Pct Auto 0.7 % (0.0-0.4); Lymphocytes Absolute Auto 1.5 X10*3/uL (1.2-4.9); Lymphocytes Percent Auto 21.6 % (20-40); Mean Corpuscular HGB Conc 31.9 g/dl (31.0-35.0); Mean Corpuscular Hemoglobin 28.8 pg (27.0-33.0); Mean Corpuscular Volume 90.1 fL (80.0-98.0); Monocytes Absolute Auto 1.3 X10*3/uL (0.1-1.2); Neutrophils Percent Auto 57.4 % (45-73); Platelet Count 378 X10*3/uL (160-400); Red Blood Count 3.44 X10*6/uL (4.20-5.50); Red Cell Distribution Width 14.8 % (11.0-16.0); White Blood Count 6.9 X10*3/uL (4.8-10.8)
[2023-09-07 06:22] LABS: Albumin Level 4.3 g/dL (3.5-5.0); Anion Gap 29 (12-20); Blood Urea Nitrogen 94 mg/dL (9-16); Calcium 8.2 mg/dL (8.4-10.2); Carbon Dioxide 17 mmol/L (22-29); Chloride 94 mmol/L (96-108); Creatinine Clr Calc Pharmacy 9.7; Estimated Glomerular Filt Rate 7; Glucose Random 76 mg/dL (60-115); Magnesium 2.5 mg/dL (1.6-2.6); Phosphorus 10.5 mg/dL (2.7-4.5); Potassium 4.3 mmol/L (3.3-5.1); Sodium 136 mmol/L (135-145)
[2023-09-07] MEDS: Calcium Gluconate/NaCl,Iso-Osm 2 GM/100 ML PLAST..BAG IV (07:56)
[2023-09-07] MEDS: methylPREDNISolone Sod Succ 40 MG/ML VIAL 8 MG IVPUSH (07:56)
[2023-09-07] MEDS: Lidocaine 4 % Patch ADH..PATCH 2 PATCH TRANSDERMA (08:00)
--- NOTE | 2023-09-07 08:58 | PM.CCPN ---
Subjective Subjective Date of Service: 09/07/23 Critical Care Time (minutes): 60 Physical Exam Vital Signs: Vital Signs: Last Vital Signs Temp 96.8 F 09/07/23 08:00 Pulse 91 09/07/23 08:00 Resp 30 H 09/07/23 08:00 BP 142/70 H 09/07/23 08:00 Pulse Ox 95 09/07/23 08:00 O2 Del Method Nasal Cannula 09/07/23 08:00 O2 Flow Rate 2 09/07/23 08:00 FiO2 25 09/04/23 17:00 BMI result Body Mass Index 30.8 Const: General: cooperative, healthy appearing, comfortable, no acute distress and well developed Orientation/consciousness: patient oriented x3 HEENT: Head: Yes normal to inspection, Yes normocephalic and Yes atraumatic Eyes: General: appearance normal, both eyes and all related structures Neck: Neck: Yes normal visual inspection, Yes full ROM, Yes no meningeal signs and Yes supple Chest: Chest palpation & inspection: normal inspection of the chest Resp: Other: no appreciable rales, rhonchi, wheezing Cardio: Rate: regular rate Rhythm: regular rhythm GI: Inspection: Yes normal to inspection, No Abdominal wall edema and No distended Palpation (GI): Soft to palpation, not firm, nontender, no guarding and not rigid Skin: General skin exam: no rashes or lesions noted Neuro: Other: decreased hearing bilaterally General: patient oriented x3, tone normal, moves all extremities, no meningeal signs and no focal motor deficits Extrem: Other: trace pitting edema to bilateral knees General: Yes normal to inspection and Yes capillary refill normal Psych: Appearance: grossly normal Objective Data Labs 09/07/23 04:52 09/07/23 04:52 Labs: Laboratory Results - last 24 hr 09/07/23 09/07/23 04:52 04:57 WBC 6.9 RBC 3.44 L Hgb 9.9 L Hct 31.0 L MCV 90.1 MCH 28.8 MCHC 31.9 RDW 14.8 Plt Count 378 MPV 11.0 Immature Gran % (Auto) 0.7 H Neut % (Auto) 57.4 Lymph % (Auto) 21.6 [place] % (Auto) 19.0 H Eos % (Auto) 0.6 Baso % (Auto) 0.7 Lymph # (Auto) 1.5 [place] # (Auto) 1.3 H Eos # (Auto) 0.0 Baso # (Auto) 0.1 Abs Immat Gran (auto) 0.05 H Absolute Neuts (auto) 4.0 Absolute Nucleated RBC 0.000 Nucleated RBC % (auto) 0.0 VBG pH 7.37 VBG pCO2 29 VBG pO2 58 VBG HCO3 17 L VBG O2 Saturation 82.0 VBG Base Excess -6.8 Sodium 136 Potassium 4.3 Chloride 94 L Carbon Dioxide 17 L Anion Gap 29 H BUN 94 H Creatinine 5.70 H* Estim Creat Clear Calc 9.7 Estimated GFR 7 Random Glucose 76 Calcium 8.2 L Phosphorus 10.5 H Magnesium 2.5 Albumin 4.3 Microbiology Microbiology Results: Microbiology 09/03/23 22:53 Sputum - Suctioned Gram Stain - Final 09/03/23 22:53 Sputum - Suctioned Sputum Culture - Final Laura albicans 09/01/23 06:30 Blood - Venous Blood Culture - Final No growth after 5 days. 09/01/23 06:30 Blood - Venous Blood Culture - Final No growth after 5 days. 09/03/23 21:22 Blood - Venous Blood Culture - Preliminary No growth after 48 hours. 09/03/23 21:22 Blood - Venous Blood Culture - Preliminary No growth after 48 hours. 08/26/23 13:39 Blood - Venous Blood Culture - Final No growth after 5 days. 08/26/23 13:39 Blood - Venous Blood Culture - Final No growth after 5 days. 08/18/23 21:45 Blood - Venous Blood Culture - Final Streptococcus pneumoniae 08/18/23 20:17 Blood - Venous Blood Culture - Final Streptococcus pneumoniae Progress Note: A&P Assessment and plan (1) Acute hearing loss: Status: Acute (2) Streptococcal pneumonia: Status: Acute (3) Acute hypoxic respiratory failure: Status: Acute (4) Pulmonary aspiration: Status: Acute Plan Patient is a 73 Y F w/ sarcoidosis, rheumatoid arthritis, p/w septic shock d/t streptococcal pneumonia on 08/18 w/ ICU course c/b acute hypoxic respiratory failure, intubated, acute renal failure, on hemodialysis; extubated 08/29, transferred to floor; hospital course c/b aspiration, intubated 09/03, extubated 09/04 N: intermittent confusion, likely multifactorial; acute hearing loss, unclear etiology; to continue to monitor CV: no acute issues R: aspiration, c/b acute hypoxic respiratory failure, intubated 09/03, extubated 09/04 GI: pureed diet; to continue to monitor closely for aspiration : acute renal failure, started on hemodialysis H: no acute issues ID: c/f aspiration pneumonia, previously on vancomycin, zosyn E: no acute issues P: no acute issues Quality Stroke Does the patient have a stroke diagnosis?: No VTE Prior VTE?: No VTE Risk Level:: Medical - moderate - high VTE Device Contraindication: N/A - Device Ordered VTE Drug Contraindication: N/A - Med Ordered
[2023-09-07] MEDS: Acetaminophen 1,000 MG/100 ML PIGGYBACK 400 MG IV ×3 (10:37→21:14)
[2023-09-07] MEDS: Nystatin Powder 15 GM BOTTLE 1 APPL TOPICAL ×2 (10:39→21:30)
--- NOTE | 2023-09-07 10:49 | PM.PNNEP ---
Subjective Subjective Date of Service: 09/07/23 Interval history: 73-year-old lady with underlying history of sarcoidosis, rheumatoid arthritis, MGUS, emphysema admitted on 08/18/2023 with septic shock secondary to streptococcal pneumonia requiring pressor support and intubation, further complicated by acute renal failure now requiring hemodialysis support and uremic encephalopathy. Extubated uneventfully on 08/29/2023. Transferred to telemetry of [facility] on 08/31/2023. On 09/03/2023 daily patient with progressive hypoxia and alteration of mental status secondary to aspiration requiring intubation. Extubated uneventfully on 09/04/2023. Oliguric Physical Exam Vital Signs: Vital Signs: Last Vital Signs Temp 96.8 F 09/07/23 08:00 Pulse 87 09/07/23 10:00 Resp 25 H 09/07/23 10:00 BP 151/82 H 09/07/23 10:00 Pulse Ox 95 09/07/23 10:00 O2 Del Method Nasal Cannula 09/07/23 10:00 O2 Flow Rate 2 09/07/23 10:00 FiO2 25 09/04/23 17:00 BMI result Body Mass Index 30.8 Const: General: cooperative, healthy appearing, comfortable, no acute distress and well developed Orientation/consciousness: patient oriented x3 HEENT: Head: Yes normal to inspection, Yes normocephalic and Yes atraumatic Eyes: General: appearance normal, both eyes and all related structures Neck: Neck: Yes normal visual inspection, Yes full ROM, Yes no meningeal signs and Yes supple Chest: Chest palpation & inspection: normal inspection of the chest Resp: Other: no appreciable rales, rhonchi, wheezing Cardio: Rate: regular rate Rhythm: regular rhythm GI: Inspection: Yes normal to inspection, No Abdominal wall edema and No distended Palpation (GI): Soft to palpation, not firm, nontender, no guarding and not rigid Skin: General skin exam: no rashes or lesions noted Neuro: Other: decreased hearing bilaterally General: patient oriented x3, tone normal, moves all extremities, no meningeal signs and no focal motor deficits Extrem: Other: trace pitting edema to bilateral knees General: Yes normal to inspection and Yes capillary refill normal Psych: Appearance: grossly normal Objective Data Labs 09/07/23 04:52 09/07/23 04:52 Labs: Laboratory Results - last 24 hr 09/07/23 09/07/23 04:52 04:57 WBC 6.9 RBC 3.44 L Hgb 9.9 L Hct 31.0 L MCV 90.1 MCH 28.8 MCHC 31.9 RDW 14.8 Plt Count 378 MPV 11.0 Immature Gran % (Auto) 0.7 H Neut % (Auto) 57.4 Lymph % (Auto) 21.6 [place] % (Auto) 19.0 H Eos % (Auto) 0.6 Baso % (Auto) 0.7 Lymph # (Auto) 1.5 [place] # (Auto) 1.3 H Eos # (Auto) 0.0 Baso # (Auto) 0.1 Abs Immat Gran (auto) 0.05 H Absolute Neuts (auto) 4.0 Absolute Nucleated RBC 0.000 Nucleated RBC % (auto) 0.0 VBG pH 7.37 VBG pCO2 29 VBG pO2 58 VBG HCO3 17 L VBG O2 Saturation 82.0 VBG Base Excess -6.8 Sodium 136 Potassium 4.3 Chloride 94 L Carbon Dioxide 17 L Anion Gap 29 H BUN 94 H Creatinine 5.70 H* Estim Creat Clear Calc 9.7 Estimated GFR 7 Random Glucose 76 Calcium 8.2 L Phosphorus 10.5 H Magnesium 2.5 Albumin 4.3 Microbiology Microbiology Results: Microbiology 09/03/23 22:53 Sputum - Suctioned Gram Stain - Final 09/03/23 22:53 Sputum - Suctioned Sputum Culture - Final Laura albicans 09/01/23 06:30 Blood - Venous Blood Culture - Final No growth after 5 days. 09/01/23 06:30 Blood - Venous Blood Culture - Final No growth after 5 days. 09/03/23 21:22 Blood - Venous Blood Culture - Preliminary No growth after 48 hours. 09/03/23 21:22 Blood - Venous Blood Culture - Preliminary No growth after 48 hours. 08/26/23 13:39 Blood - Venous Blood Culture - Final No growth after 5 days. 08/26/23 13:39 Blood - Venous Blood Culture - Final No growth after 5 days. 08/18/23 21:45 Blood - Venous Blood Culture - Final Streptococcus pneumoniae 08/18/23 20:17 Blood - Venous Blood Culture - Final Streptococcus pneumoniae Procedures Date of Service Date of Service: 09/07/23 Assessment & Plan Assessment and plan (1) BRE (acute kidney injury): Status: Acute Assessment and Plan: Remains oligoanuric DDX includes ATN, but has underlying MGUS, low complements so ddx includes myeloma kidney, cryoglobulinemia. Doubt lupus nephritis or mixed connective tissue disease but possible given RA; postinfectious GN possible. Plan HDTTS - in AM Has a IJ cath - Please ask IR to convert to a Permcath as she s not showing signs of recovery Await cryoglobulins, MAXX, ds DNA May need renal biopsy given high [place]: lambda when she is more stable Avodi Nephrotoxins (2) MGUS (monoclonal gammopathy of unknown significance): Status: Acute (3) Metabolic acidosis: Status: Acute Assessment and Plan: Due to BRE This may necessitate dialysis tomorrow; if bicarb lower will need HD tomorrow am Time Spent With Patient Time: Total time managing care of this patient today ____ minutes. Progress Note: Quality Stroke Does the patient have a stroke diagnosis?: No
[2023-09-07] MEDS: amLODIPine Besylate 5 MG TABLET PO (13:07)
[2023-09-08 04:00] VITALS: BP 147/76; PULSE 94; RESP 16; TEMP 36.1; O2SAT 96
[2023-09-08] MEDS: Acetaminophen 1,000 MG/100 ML PIGGYBACK 400 MG IV ×3 (04:09→22:04)
[2023-09-08 05:47] LABS: Basophils Absolute Auto 0.1 X10*3/uL (0.0-0.2); Basophils Percent Auto 0.9 % (0-2); Eosinophils Absolute Auto 0.1 X10*3/uL (0.0-0.4); Eosinophils Percent Auto 1.1 % (0-4); Hematocrit 31.9 % (37.0-47.0); Hemoglobin 10.3 g/dl (12.0-16.0); Imm Gran Abs Auto 0.06 X10*3/uL (0.00-0.03); Imm Gran Pct Auto 0.7 % (0.0-0.4); Lymphocytes Absolute Auto 1.6 X10*3/uL (1.2-4.9); Lymphocytes Percent Auto 17.8 % (20-40); MANUAL DIFF FLAG SCAN; Mean Corpuscular HGB Conc 32.3 g/dl (31.0-35.0); Mean Corpuscular Hemoglobin 29.4 pg (27.0-33.0); Mean Corpuscular Volume 91.1 fL (80.0-98.0); Mean Platelet Volume 10.9 fL (9.4-12.3); Monocytes Absolute Auto 1.7 X10*3/uL (0.1-1.2); Monocytes Percent Auto 18.9 % (2-11); Neutrophils Absolute Auto 5.4 x10*3/uL (2.0-8.3); Neutrophils Percent Auto 60.6 % (45-73); Platelet Count 348 X10*3/uL (160-400); Red Cell Distribution Width 14.9 % (11.0-16.0); SCAN SMEAR FLAG 1; White Blood Count 8.9 X10*3/uL (4.8-10.8)
[2023-09-08 06:07] LABS: SLIDE REVIEW VERIFIED
[2023-09-08 06:11] LABS: Anion Gap 31 (12-20); Blood Urea Nitrogen 113 mg/dL (9-16); Calcium 8.1 mg/dL (8.4-10.2); Carbon Dioxide 15 mmol/L (22-29); Chloride 93 mmol/L (96-108); Creatinine Clr Calc Pharmacy 8.3; Estimated Glomerular Filt Rate 6; Glucose Random 74 mg/dL (60-115); Potassium 4.5 mmol/L (3.3-5.1); Sodium 134 mmol/L (135-145)
[2023-09-08] MEDS: methylPREDNISolone Sod Succ 40 MG/ML VIAL 8 MG IVPUSH (07:11)
[2023-09-08 07:23] VITALS: BP 168/82; PULSE 91; RESP 18; TEMP 36.1; O2SAT 96
[2023-09-08] MEDS: Lidocaine 4 % Patch ADH..PATCH 2 PATCH TRANSDERMA (07:55)
[2023-09-08] MEDS: amLODIPine Besylate 5 MG TABLET PO (07:58)
[2023-09-08] MEDS: Nystatin Powder 15 GM BOTTLE 1 APPL TOPICAL ×2 (07:59→22:05)
--- NOTE | 2023-09-08 10:36 | MHC.SLORD ---
Speech Language Pathology Order Status: MBSS order received, unable to schedule today, . 09/08, per Radiology schedule. Will re-attempt tomorrow, . 09/09.
--- NOTE | 2023-09-08 11:07 | MHC.CM.PN ---
Addendum entered by Dorothea Peterson 09/08/23 13:20: [facility] is following patient for readiness. [facility] does not have availability. Original Note: Dr Henry, Nephrology requested a referral be sent to [facility]. Patient is new to HD. She lives in [place]. [facility] likely be her community HD center per DR Henry. [facility] HD in a facility. Patient will transport via [facility]
--- NOTE | 2023-09-08 11:37 | PM.PNNEP ---
Subjective Subjective Date of Service: 09/09/23 Interval history: 73-year-old lady going for a Permcath and HD after Oliguric Physical Exam Vital Signs: Vital Signs: Last Vital Signs Temp 96.9 F 09/08/23 07:23 Pulse 91 09/08/23 07:23 Resp 18 09/08/23 07:23 BP 168/82 H 09/08/23 07:23 Pulse Ox 96 09/08/23 07:23 O2 Del Method Nasal Cannula 09/08/23 07:23 O2 Flow Rate 2 09/08/23 07:23 FiO2 25 09/04/23 17:00 BMI result Body Mass Index 30.8 Const: General: cooperative, healthy appearing, comfortable, no acute distress and well developed Orientation/consciousness: patient oriented x3 HEENT: Head: Yes normal to inspection, Yes normocephalic and Yes atraumatic Eyes: General: appearance normal, both eyes and all related structures Neck: Neck: Yes normal visual inspection, Yes full ROM, Yes no meningeal signs and Yes supple Chest: Chest palpation & inspection: normal inspection of the chest Resp: Other: no appreciable rales, rhonchi, wheezing Cardio: Rate: regular rate Rhythm: regular rhythm GI: Inspection: Yes normal to inspection, No Abdominal wall edema and No distended Palpation (GI): Soft to palpation, not firm, nontender, no guarding and not rigid Skin: General skin exam: no rashes or lesions noted Neuro: Other: decreased hearing bilaterally General: patient oriented x3, tone normal, moves all extremities, no meningeal signs and no focal motor deficits Extrem: Other: trace pitting edema to bilateral knees General: Yes normal to inspection and Yes capillary refill normal Psych: Appearance: grossly normal Objective Data Labs 09/09/23 05:43 09/09/23 05:43 Labs: Laboratory Results - last 24 hr 09/08/23 05:07 WBC 8.9 RBC 3.50 L Hgb 10.3 L Hct 31.9 L MCV 91.1 MCH 29.4 MCHC 32.3 RDW 14.9 Plt Count 348 MPV 10.9 Immature Gran % (Auto) 0.7 H Neut % (Auto) 60.6 Lymph % (Auto) 17.8 L [place] % (Auto) 18.9 H Eos % (Auto) 1.1 Baso % (Auto) 0.9 Lymph # (Auto) 1.6 [place] # (Auto) 1.7 H Eos # (Auto) 0.1 Baso # (Auto) 0.1 Abs Immat Gran (auto) 0.06 H Absolute Neuts (auto) 5.4 Absolute Nucleated RBC 0.000 Nucleated RBC % (auto) 0.0 Smear Tech's Comments VERIFIED Sodium 134 L Potassium 4.5 Chloride 93 L Carbon Dioxide 15 L Anion Gap 31 H BUN 113 H Creatinine 6.63 H* Estim Creat Clear Calc 8.3 Estimated GFR 6 Random Glucose 74 Calcium 8.1 L Microbiology Microbiology Results: Microbiology 09/03/23 22:53 Sputum - Suctioned Gram Stain - Final 09/03/23 22:53 Sputum - Suctioned Sputum Culture - Final Laura albicans 09/01/23 06:30 Blood - Venous Blood Culture - Final No growth after 5 days. 09/01/23 06:30 Blood - Venous Blood Culture - Final No growth after 5 days. 09/03/23 21:22 Blood - Venous Blood Culture - Preliminary No growth after 48 hours. 09/03/23 21:22 Blood - Venous Blood Culture - Preliminary No growth after 48 hours. 08/26/23 13:39 Blood - Venous Blood Culture - Final No growth after 5 days. 08/26/23 13:39 Blood - Venous Blood Culture - Final No growth after 5 days. 08/18/23 21:45 Blood - Venous Blood Culture - Final Streptococcus pneumoniae 08/18/23 20:17 Blood - Venous Blood Culture - Final Streptococcus pneumoniae Procedures Date of Service Date of Service: 09/09/23 Assessment & Plan Assessment and plan (1) BRE (acute kidney injury): Status: Acute Assessment and Plan: Remains oligoanuric DDX includes ATN, but has underlying MGUS, low complements so ddx includes myeloma kidney, cryoglobulinemia. Doubt lupus nephritis or mixed connective tissue disease but possible given RA; postinfectious GN possible. Plan HDTTS - in AM Has a IJ cath - Please ask IR to convert to a Permcath as she s not showing signs of recovery Await cryoglobulins, MAXX, ds DNA May need renal biopsy given high [place]: lambda when she is more stable - I will decidein AM Avodi Nephrotoxins (2) MGUS (monoclonal gammopathy of unknown significance): Status: Acute (3) Metabolic acidosis: Status: Acute Assessment and Plan: Due to BRE This may necessitate dialysis tomorrow; if bicarb lower will need HD tomorrow am Time Spent With Patient Time: Total time managing care of this patient today ____ minutes. Progress Note: Quality Stroke Does the patient have a stroke diagnosis?: No
--- NOTE | 2023-09-08 12:50 | MHC.SLORD ---
Speech Language Pathology Order Status: MBSS scheduled w/ Radiology for 2pm tomorrow.
[2023-09-08 13:05] VITALS: BP 140/91; PULSE 86; RESP 16; TEMP 36.1; O2SAT 97
--- NOTE | 2023-09-08 13:11 | HO.RADPN ---
RADIOLOGY Narrative Narrative: Procedure Note: Right IJ Permacath 27 cm placed using US and fluoro. Tip at cavoatrial junction. Ok for use. Left neck Donald removed. Willie BOYD Interventional Radiology
[2023-09-08 13:20] VITALS: BP 160/75; PULSE 90; RESP 16; TEMP 36.1; O2SAT 99
--- NOTE | 2023-09-08 14:12 | HO.PM.IMPN ---
Subjective Subjective Date of Service: 09/08/23 Interval History: No acute issues overnight. Remains essentially deaf Review of Systems All information via white erase board Denies chest pain Denies shortness of breath Denies nausea vomiting diarrhea Denies fever chills Physical Exam Vital Signs: Vital Signs: Last Vital Signs Temp 97 F 09/08/23 13:20 Pulse 90 09/08/23 13:20 Resp 16 09/08/23 13:20 BP 160/75 H 09/08/23 13:20 Pulse Ox 99 09/08/23 13:20 O2 Del Method Nasal Cannula wit h Capnography 09/08/23 13:20 O2 Flow Rate 2 09/08/23 13:20 FiO2 25 09/04/23 17:00 BMI result Body Mass Index 30.8 Const: Other: Awake alert no acute distress Resp: Other: Clear to auscultation bilaterally no rales rhonchi or wheezes Cardio: Other: No S4; positive S1-S2; no S3 murmurs rubs or gallops GI: Other: Soft nontender nondistended normoactive bowel sounds Extrem: Other: No edema bilaterally Objective Data Active Medications Acetaminophen (Acetaminophen 325 Mg Tablet) 650 mg PO Q6H PRN PRN Reason: Pain, Mild (Pain Scale 1-3) Last Admin: 09/03/23 03:09 Dose: 650 mg Documented By: FRANCIE Amlodipine Besylate (Amlodipine Besylate 5 Mg Tablet) 5 mg PO DAILY [facility]; Protocol Last Admin: 09/08/23 07:58 Dose: 5 mg Documented By: TAMICA Artificial Tears (Artificial Tears 15 Ml Drops) 2 drop EYE-BOTH Q4H PRN PRN Reason: Dry Eyes Last Admin: 08/29/23 08:33 Dose: 2 drop Documented By: ESTEFANIA Dextrose (Dextrose 50 % 25 Gm/50 Ml Syringe) 25 gm IVPUSH Q15M PRN PRN Reason: per Hypoglycemia Standing Ord. Last Admin: 08/21/23 13:27 Dose: 25 gm Documented By: HAROON Glucose (Glucose Gel 15 Gm Gel..Gram.) 15 gm PO Q15M PRN PRN Reason: per Hypoglycemia Standing Ord. Last Admin: 08/19/23 16:40 Dose: 15 gm Documented By: AVRIL Heparin Sodium (Porcine) (Heparin Sodium,Porcine 5,000 Unit/Ml Vial) 5,000 unit SUBCUT Q8H [facility] Last Admin: 09/07/23 17:45 Dose: 5,000 unit Documented By: TAMICA Acetaminophen (Ofirmev) 1,000 mg in 100 mls @ 400 mls/hr IV Q6H [facility] Last Infusion: 09/08/23 10:09 Dose: Infused Documented By: TAMICA Lidocaine (Lidocaine 4 % Patch Adh..Patch) 2 patch TRANSDERMA DAILY [facility]; Protocol Last Admin: 09/08/23 07:55 Dose: 2 patch Documented By: TAMICA Methylprednisolone Sodium Succinate (Methylprednisolone Sod Succ 40 Mg/Ml Vial) 8 mg IVPUSH Q24H [facility] Last Admin: 09/08/23 07:11 Dose: 8 mg Documented By: TAMICA Nystatin (Nystatin Powder 15 Gm Bottle) 1 appl TOPICAL BID [facility]; Protocol Last Admin: 09/08/23 07:59 Dose: 1 appl Documented By: TAMICA Ondansetron HCl (Ondansetron Hcl 4 Mg/2 Ml Vial) 4 mg IVPUSH Q6H PRN PRN Reason: Nausea and Vomiting Last Admin: 08/20/23 19:24 Dose: 4 mg Documented By: PRATEEK Labs 09/08/23 05:07 09/08/23 05:07 Labs: Laboratory Results - last 24 hr 09/08/23 05:07 MCV 91.1 MCH 29.4 MCHC 32.3 RDW 14.9 Plt Count 348 MPV 10.9 Immature Gran % (Auto) 0.7 H Neut % (Auto) 60.6 Lymph % (Auto) 17.8 L [place] % (Auto) 18.9 H Eos % (Auto) 1.1 Baso % (Auto) 0.9 Lymph # (Auto) 1.6 [place] # (Auto) 1.7 H Eos # (Auto) 0.1 Baso # (Auto) 0.1 Abs Immat Gran (auto) 0.06 H Absolute Neuts (auto) 5.4 Absolute Nucleated RBC 0.000 Nucleated RBC % (auto) 0.0 Smear Tech's Comments VERIFIED Anion Gap 31 H Estim Creat Clear Calc 8.3 Estimated GFR 6 Random Glucose 74 Calcium 8.1 L Assessment and Plan (1) Pulmonary aspiration: Status: Acute (2) Acute hearing loss: Status: Acute (3) BRE (acute kidney injury): Status: Acute Plan 73-year-old female initially admitted to ICU on 08/18/2023 with complaints of acute confusion as noted by family. Ultimately she was admitted with acute septic shock and left upper lung pneumonia. She was transferred to ICU intubated subsequently transferred out of ICU after sustaining acute kidney injury and NST KAI. Please see notes for details. On 09/07/2023 she was transferred out of ICU; notes acute hearing loss likely secondary to antibiotics. She also required urgent hemodialysis while in ICU. On floor she is hemodynamically stable 1. Aspiration pneumonia requiring intubation -resolved and successfully extubated. Treated with full course of IV antibiotics. -titrate O2 as clinically indicated 2. BRE requiring acute hemodialysis -successful placement of tunneled catheter today Interventional Radiology -as per Nephrology; will follow renals/divalents -may need HD in a.m. add Nephrology ease direction 3. Dysphagia -tolerating pureed diet at present -at family and speech therapy request modified barium swallow will be scheduled -further changes based on forthcoming results 4. History AFib with RVR -examines normal sinus rhythm -obtain EKG to document appropriately 5. Septic shock secondary to strep bacteremia -resolved follow clinically - Full code Heparin Patient requiring ongoing hospitalization for completing workup of dysphagia and ongoing hemodialysis. She will continue to require specialist follow-up Quality Stroke Does the patient have a stroke diagnosis?: No VTE Prior VTE?: No VTE Risk Level:: Medical - moderate - high VTE Device Contraindication: N/A - Device Ordered VTE Drug Contraindication: N/A - Med Ordered
--- NOTE | 2023-09-08 15:28 | MHC.CM.PN ---
spoke with pts santi updated him re bed search
[2023-09-08 19:23] VITALS: BP 164/74; PULSE 90; RESP 18; TEMP 36.6; O2SAT 95
[2023-09-08 20:13] VITALS: BP 158/78; PULSE 103; RESP 18; TEMP 36; O2SAT 98
[2023-09-09] MEDS: Acetaminophen 1,000 MG/100 ML PIGGYBACK 400 MG IV ×4 (03:43→21:01)
[2023-09-09 04:00] VITALS: BP 140/73; PULSE 96; RESP 16; TEMP 36.6; O2SAT 97
[2023-09-09 06:10] LABS: MANUAL DIFF FLAG NO
[2023-09-09 06:28] LABS: Basophils Absolute Auto 0.1 X10*3/uL (0.0-0.2); Basophils Percent Auto 0.7 % (0-2); Eosinophils Absolute Auto 0.1 X10*3/uL (0.0-0.4); Eosinophils Percent Auto 0.7 % (0-4); Hematocrit 32.3 % (37.0-47.0); Hemoglobin 10.4 g/dl (12.0-16.0); Imm Gran Abs Auto 0.07 X10*3/uL (0.00-0.03); Lymphocytes Absolute Auto 1.3 X10*3/uL (1.2-4.9); Lymphocytes Percent Auto 18.9 % (20-40); Mean Corpuscular HGB Conc 32.2 g/dl (31.0-35.0); Mean Corpuscular Hemoglobin 29.4 pg (27.0-33.0); Mean Corpuscular Volume 91.2 fL (80.0-98.0); Mean Platelet Volume 10.9 fL (9.4-12.3); Monocytes Absolute Auto 1.4 X10*3/uL (0.1-1.2); Neutrophils Percent Auto 58.7 % (45-73); Platelet Count 273 X10*3/uL (160-400); Red Blood Count 3.54 X10*6/uL (4.20-5.50); White Blood Count 6.9 X10*3/uL (4.8-10.8)
[2023-09-09 06:31] LABS: Anion Gap 23 (12-20); Blood Urea Nitrogen 52 mg/dL (9-16); Calcium 8.4 mg/dL (8.4-10.2); Carbon Dioxide 17 mmol/L (22-29); Chloride 96 mmol/L (96-108); Creatinine Clr Calc Pharmacy 15.7; Estimated Glomerular Filt Rate 13; Glucose Random 62 mg/dL (60-115); Potassium 3.6 mmol/L (3.3-5.1); Sodium 132 mmol/L (135-145)
[2023-09-09 07:25] VITALS: BP 146/71; PULSE 95; RESP 12; TEMP 36; O2SAT 97
[2023-09-09] MEDS: Lidocaine 4 % Patch ADH..PATCH 2 PATCH TRANSDERMA (08:09)
[2023-09-09] MEDS: methylPREDNISolone Sod Succ 40 MG/ML VIAL 8 MG IVPUSH (08:09)
[2023-09-09] MEDS: Nystatin Powder 15 GM BOTTLE 1 APPL TOPICAL ×2 (08:10→21:22)
[2023-09-09] MEDS: amLODIPine Besylate 5 MG TABLET PO (08:10)
--- NOTE | 2023-09-09 09:36 | PM.PNNEP ---
Subjective Subjective Date of Service: 09/09/23 Interval history: Pt s/p Permcath Had HD yesterday Physical Exam Vital Signs: Vital Signs: Last Vital Signs Temp 96.8 F 09/09/23 07:25 Pulse 95 09/09/23 07:25 Resp 12 09/09/23 07:25 BP 146/71 H 09/09/23 07:25 Pulse Ox 97 09/09/23 07:25 O2 Del Method Room Air 09/09/23 07:25 O2 Flow Rate 3 09/08/23 20:13 FiO2 25 09/04/23 17:00 BMI result Body Mass Index 30.8 Const: Other: Awake alert no acute distress Resp: Other: Clear to auscultation bilaterally no rales rhonchi or wheezes Cardio: Other: No S4; positive S1-S2; no S3 murmurs rubs or gallops GI: Other: Soft nontender nondistended normoactive bowel sounds Extrem: Other: No edema bilaterally Objective Data Labs 09/09/23 05:43 09/09/23 05:43 Labs: Laboratory Results - last 24 hr 09/09/23 05:43 WBC 6.9 RBC 3.54 L Hgb 10.4 L Hct 32.3 L MCV 91.2 MCH 29.4 MCHC 32.2 RDW 15.0 Plt Count 273 MPV 10.9 Immature Gran % (Auto) 1.0 H Neut % (Auto) 58.7 Lymph % (Auto) 18.9 L [place] % (Auto) 20.0 H Eos % (Auto) 0.7 Baso % (Auto) 0.7 Lymph # (Auto) 1.3 [place] # (Auto) 1.4 H Eos # (Auto) 0.1 Baso # (Auto) 0.1 Abs Immat Gran (auto) 0.07 H Absolute Neuts (auto) 4.0 Absolute Nucleated RBC 0.000 Nucleated RBC % (auto) 0.0 Sodium 132 L Potassium 3.6 Chloride 96 Carbon Dioxide 17 L Anion Gap 23 H BUN 52 H Creatinine 3.53 H Estim Creat Clear Calc 15.7 Estimated GFR 13 Random Glucose 62 Calcium 8.4 Microbiology Microbiology Results: Microbiology 09/03/23 21:22 Blood - Venous Blood Culture - Final No growth after 5 days. 09/03/23 21:22 Blood - Venous Blood Culture - Final No growth after 5 days. 09/03/23 22:53 Sputum - Suctioned Gram Stain - Final 09/03/23 22:53 Sputum - Suctioned Sputum Culture - Final Laura albicans 09/01/23 06:30 Blood - Venous Blood Culture - Final No growth after 5 days. 09/01/23 06:30 Blood - Venous Blood Culture - Final No growth after 5 days. 08/26/23 13:39 Blood - Venous Blood Culture - Final No growth after 5 days. 08/26/23 13:39 Blood - Venous Blood Culture - Final No growth after 5 days. 08/18/23 21:45 Blood - Venous Blood Culture - Final Streptococcus pneumoniae 08/18/23 20:17 Blood - Venous Blood Culture - Final Streptococcus pneumoniae Procedures Date of Service Date of Service: 09/09/23 Assessment & Plan Assessment and plan (1) BRE (acute kidney injury): Status: Acute Assessment and Plan: Remains oligoanuric DDX includes ATN, but has underlying MGUS, low complements so ddx includes myeloma kidney, cryoglobulinemia. Doubt lupus nephritis or mixed connective tissue disease but possible given RA; postinfectious GN possible. Plan HD TTS - HD in AM Has a IJ cath Await cryoglobulins, MAXX, ds DNA May need renal biopsy given +ve immunofixation with BRE / Low compliments - ? periinfectious GN - I will discuss with medical team Suggest Hematology eval Avodi Nephrotoxins Out pt Hd spot being arranged _ Need to know the disposition of this patient (2) MGUS (monoclonal gammopathy of unknown significance): Status: Acute (3) Metabolic acidosis: Status: Acute Assessment and Plan: Due to BRE This may necessitate dialysis tomorrow; if bicarb lower will need HD tomorrow am Time Spent With Patient Time: Total time managing care of this patient today ____ minutes. Progress Note: Quality Stroke Does the patient have a stroke diagnosis?: No
[2023-09-09 10:54] VITALS: BP 146/71; PULSE 95; O2SAT 97
[2023-09-09] MEDS: Lactated Ringers 1,000 ML 125 ML IVCONT ×2 (11:08→18:15)
[2023-09-09 12:03] LABS: Anti Nuclear Antibody Screen NEGATIVE (NEGATIVE)
--- NOTE | 2023-09-09 12:13 | MHC.CM.PN ---
pt accepted at [facility] they are going for romario hoffman or ale
--- NOTE | 2023-09-09 12:45 | HO.WOUND ---
Addendum entered by Mireille Hardwick RN 09/10/23 08:42: New consult received for fungal rash to groin and buttocks - addressed yesterday - Nystatin in place appropriately for twice daily application - will place topical order for direct care team. Physical Therapy saw patient yesterday. No new assessment needed at this time. See below for topical orders now initiated on nurse worklist. Original Note: Wound Consult: Initial 73yr old female admitted to [facility] on?08/18/23 23:15 - See progress notes and H&P for detailed history. Wound consult request by direct care team for foot and buttock assessment. Arrival to bedside pt and agreeable to assessment. communication was completed via wipe board with patient as she reports she can not hear at this time. Buttock and perineal area assessed - no open lesions notes - red pink blanchable tissue noted consistent pattern of moisture. Advancing boarders and yeast odor detected, currently treated with Nystatin and Barrier cream - no new topical recommendations needed. Both heels were assessed and are intact and no injury noted. Her foot posturing was observed to resemble foot drop - she is able to move her foot in all directions. Discussed with Patient and benefits of range of motion with both feet and ankles and benefits of Heel protecting boots. Demonstration provided for proper boot strap application to prevent foot drop. demonstrates understanding. Dr. Fischer TT made aware of concern for foot drop - PT ordered and will evaulate. No new topical interventions needed at this time. Recommendations: 1. Turn and Reposition every 2 hours and as needed for patient comfort - pt off loaded to sie with pillows when entered room. 2. Off Load all bony prominences with use of pillows and heel boots if needed.? Apply Preventative foams where needed. ? 3. Monitor for incontinence and moisture control, use barrier creams when needed for prevention and treatment. Intergluteal and Perineal - Cleanse with PH balance wipes, allow to dry. Apply Nystatin Powder to provide antifungal effect and to assist in moisture management. Be sure to dust off excess powder to prevent caking on skin. Apply per provider orders. Follow with barrier creamt to protect from moisture and friction. 4. Provide adequate and supplemental nutrition. 5. Continue low air loss mattress - currently in place. 6. Bilateral Feet - Off Loading heel boots applied with initiation of foot drop strap. PT consult placed by provider. Re-consult wound care Nurse for wound deterioration or wound changes.
--- NOTE | 2023-09-09 13:07 | P.PNIM_ITS ---
Subjective Subjective Date of Service: 09/09/23 Interval History: No acute issues overnight; still issues with hearing. Alert awaiting modified barium swallow Review of Systems All information via white erase board Denies chest pain Denies shortness of breath Denies nausea vomiting diarrhea Denies fever chills Physical Exam 2 Vital Signs: Vital Signs: Last Vital Signs Temp 96.8 F 09/09/23 07:25 Pulse 95 09/09/23 10:54 Resp 12 09/09/23 07:25 BP 146/71 H 09/09/23 10:54 Pulse Ox 97 09/09/23 10:54 O2 Del Method Room Air 09/09/23 07:25 O2 Flow Rate 3 09/08/23 20:13 FiO2 25 09/04/23 17:00 BMI result Body Mass Index 30.8 Const: Other: Awake alert no acute distress Resp: Other: Clear to auscultation bilaterally no rales rhonchi or wheezes Cardio: Other: No S4; positive S1-S2; no S3 murmurs rubs or gallops GI: Other: Soft nontender nondistended normoactive bowel sounds Extrem: Other: No edema bilaterally Objective Data Active Medications Acetaminophen (Acetaminophen 325 Mg Tablet) 650 mg PO Q6H PRN PRN Reason: Pain, Mild (Pain Scale 1-3) Last Admin: 09/03/23 03:09 Dose: 650 mg Documented By: FRANCIE Amlodipine Besylate (Amlodipine Besylate 5 Mg Tablet) 5 mg PO DAILY [facility]; Protocol Last Admin: 09/09/23 08:10 Dose: 5 mg Documented By: BERNY Artificial Tears (Artificial Tears 15 Ml Drops) 2 drop EYE-BOTH Q4H PRN PRN Reason: Dry Eyes Last Admin: 08/29/23 08:33 Dose: 2 drop Documented By: ESTEFANIA Dextrose (Dextrose 50 % 25 Gm/50 Ml Syringe) 25 gm IVPUSH Q15M PRN PRN Reason: per Hypoglycemia Standing Ord. Last Admin: 08/21/23 13:27 Dose: 25 gm Documented By: HAROON Glucose (Glucose Gel 15 Gm Gel..Gram.) 15 gm PO Q15M PRN PRN Reason: per Hypoglycemia Standing Ord. Last Admin: 08/19/23 16:40 Dose: 15 gm Documented By: AVRIL Heparin Sodium (Porcine) (Heparin Sodium,Porcine 5,000 Unit/Ml Vial) 5,000 unit SUBCUT Q8H [facility] Last Admin: 09/07/23 17:45 Dose: 5,000 unit Documented By: TAMICA Acetaminophen (Ofirmev) 1,000 mg in 100 mls @ 400 mls/hr IV Q6H [facility] Last Infusion: 09/09/23 11:29 Dose: Infused Documented By: BERNY Lactated Ringer's (Lr) 1,000 mls @ 125 mls/hr IVCONT .Q8H [facility] Last Admin: 09/09/23 11:08 Dose: 125 mls/hr Documented By: BERNY Lidocaine (Lidocaine 4 % Patch Adh..Patch) 2 patch TRANSDERMA DAILY [facility]; Protocol Last Admin: 09/09/23 08:09 Dose: 2 patch Documented By: BERNY Methylprednisolone Sodium Succinate (Methylprednisolone Sod Succ 40 Mg/Ml Vial) 8 mg IVPUSH Q24H [facility] Last Admin: 09/09/23 08:09 Dose: 8 mg Documented By: BERNY Nystatin (Nystatin Powder 15 Gm Bottle) 1 appl TOPICAL BID [facility]; Protocol Last Admin: 09/09/23 08:10 Dose: 1 appl Documented By: BERNY Ondansetron HCl (Ondansetron Hcl 4 Mg/2 Ml Vial) 4 mg IVPUSH Q6H PRN PRN Reason: Nausea and Vomiting Last Admin: 08/20/23 19:24 Dose: 4 mg Documented By: PRATEEK Labs 09/09/23 05:43 09/09/23 05:43 Labs: Laboratory Results - last 24 hr 09/06/23 09/09/23 05:44 05:43 MCV 91.2 MCH 29.4 MCHC 32.2 RDW 15.0 Plt Count 273 MPV 10.9 Immature Gran % (Auto) 1.0 H Neut % (Auto) 58.7 Lymph % (Auto) 18.9 L [place] % (Auto) 20.0 H Eos % (Auto) 0.7 Baso % (Auto) 0.7 Lymph # (Auto) 1.3 [place] # (Auto) 1.4 H Eos # (Auto) 0.1 Baso # (Auto) 0.1 Abs Immat Gran (auto) 0.07 H Absolute Neuts (auto) 4.0 Absolute Nucleated RBC 0.000 Nucleated RBC % (auto) 0.0 Anion Gap 23 H Estim Creat Clear Calc 15.7 Estimated GFR 13 Random Glucose 62 Calcium 8.4 MAXX Screen NEGATIVE Microbiology Microbiology Results: Microbiology 09/03/23 21:22 Blood Culture - Final Blood - Venous No growth after 5 days. 09/03/23 21:22 Blood Culture - Final Blood - Venous No growth after 5 days. Assessment and Plan (1) Pulmonary aspiration: Status: Acute (2) BRE (acute kidney injury): Status: Acute (3) Dysphasia: Status: Acute Plan 73-year-old female initially admitted to ICU on 08/18/2023 with complaints of acute confusion as noted by family. Ultimately she was admitted with acute septic shock and left upper lung pneumonia. She was transferred to ICU intubated subsequently transferred out of ICU after sustaining acute kidney injury and NST KAI. Please see notes for details. On 09/07/2023 she was transferred out of ICU; notes acute hearing loss likely secondary to antibiotics. She also required urgent hemodialysis while in ICU. On floor she is hemodynamically stable 1. Aspiration pneumonia requiring intubation -resolved and successfully extubated. Treated with full course of IV antibiotics. -titrate O2 as clinically indicated 2. BRE requiring acute hemodialysis -successful placement of tunneled catheter today Interventional Radiology -as per Nephrology; will follow renals/divalents -renal request Interventional do renal biopsy; ordered 3. Dysphagia -tolerating pureed diet at present -at family and speech therapy request modified barium swallow this afternoon -further changes based on forthcoming results 4. History AFib with RVR -examines normal sinus rhythm -obtain EKG to document appropriately 5. Septic shock secondary to strep bacteremia -resolved follow clinically - Full code Heparin Patient requiring ongoing hospitalization for completing workup of dysphagia and ongoing hemodialysis. She will continue to require specialist follow-up Quality Stroke Does the patient have a stroke diagnosis?: No VTE Prior VTE?: No VTE Risk Level:: Medical - moderate - high VTE Device Contraindication: N/A - Device Ordered VTE Drug Contraindication: N/A - Med Ordered
[2023-09-09 13:52] LABS: Anti DNA DS Antibody 1 IU/mL
[2023-09-09 14:23] VITALS: BP 146/71; PULSE 95; O2SAT 97
[2023-09-09 15:05] VITALS: BP 150/72; PULSE 98; RESP 18; TEMP 36.1; O2SAT 95
--- NOTE | 2023-09-09 16:54 | MHC.SLORD ---
Speech Language Pathology Order Status: MBSS completed this afternoon. Evidence of penetration above the vocal folds with intake of nectar thick liquid, increased to the level of the vocal folds with thin liquid. Pt w/ decreased sensation, did not elicit a spontaneous cough in response to contrast entering the airway. Epiglottis was retroflexed with partial inversion, leading to increased vallecular retention as well, particularly with hard solid. Pharyngeal retention mostly cleared with additional bite of puree. Recommend UPGRADE to CHOPPED/ADVANCED (NDD3) diet, start on NECTAR THICK liquids for the time being given pt's recurrent aspiration events and ICU stay. Per [place] Water Protocol, maintain frequent oral care, pt to be permitted water by teaspoon or individual cup sips between meals. Results and recommendations communicated to care team (, RN, RD) via [employer] Message. Report to follow.
[2023-09-09 19:16] VITALS: BP 146/66; PULSE 97; RESP 18; TEMP 37; O2SAT 95
--- NOTE | 2023-09-10 | ECG_ITS ---
Test Reason : HX AFIB Blood Pressure : / mmHG Vent. Rate : 101 BPM Atrial Rate : 101 BPM P-R Int : 168 ms QRS Dur : 100 ms QT Int : 362 ms P-R-T Axes : 067 065 073 degrees QTc Int : 469 ms Sinus tachycardia Otherwise normal ECG When compared with ECG of 03-SEP-2023 19:33, Sinus rhythm has replaced Atrial fibrillation Vent. rate has decreased BY [address] no longer depressed in Inferior leads ST less depressed in Lateral leads Nonspecific T wave abnormality no longer evident in Inferior leads T wave inversion no longer evident in Lateral leads Referred By: Guido Park Electronically Signed By:LIAN ROSE MD
[2023-09-10] MEDS: Lactated Ringers 1,000 ML 125 ML IVCONT ×2 (01:16→08:48)
[2023-09-10] MEDS: Acetaminophen 1,000 MG/100 ML PIGGYBACK 400 MG IV ×2 (03:04→08:35)
[2023-09-10 04:00] VITALS: BP 141/67; PULSE 92; RESP 16; TEMP 36; O2SAT 96
[2023-09-10 07:25] VITALS: BP 156/72; PULSE 92; RESP 16; TEMP 36; O2SAT 94
[2023-09-10] MEDS: Lidocaine 4 % Patch ADH..PATCH 2 PATCH TRANSDERMA (08:36)
[2023-09-10] MEDS: amLODIPine Besylate 5 MG TABLET PO (08:37)
[2023-09-10] MEDS: methylPREDNISolone Sod Succ 40 MG/ML VIAL 8 MG IVPUSH (08:37)
[2023-09-10] MEDS: Nystatin Powder 15 GM BOTTLE 1 APPL TOPICAL ×2 (08:47→19:48)
--- NOTE | 2023-09-10 08:59 | MHC.SL.IMP ---
Date of Plan of Treatment: 09/09/23 Onset of Symptoms/Illness: 08/31/23 Date Treatment Started: 09/01/23 Admitting Diagnosis: Pulmonary aspiration, BRE, dysphagia Primary Speech & Language Diagnosis: R13.12 Oropharyngeal Phase Dysphagia Secondary Speech & Language Diagnosis: R49.0 Dysphonia Reason for Today's Visit: 75399 Modified Barium Swallow Study Comments: Pt is awake in her room with extended Family present. She is on 6L NC. She is aphonic initially, but begins to phonate after several swallowing trials and is able to make her needs known. Pre-evaluation Dietary Consistencies: Pureed (NDD1) Pre-evaluation Liquid Consistency: Honey Thick Pre-evaluation Medication Administration: Crushed with Puree Medical History: Modified Barium Swallow Study Fluoroscopic Evaluation of Swallowing Function CPT Code 78864 Evaluation Year: 2022 Reason for Study: Concern for aspiration Referring Physician: Kailash Fischer DO Evaluating Clinician: Pauline Avila MA, CCC-INSTRUCTIONAL AIDE Study Number: 1 Patient Name: Tasha Nieto Status: Inpatient, Stretcher Age: 73 Gender: Female Medical History Medical History Xanthelasma Pulmonary nodules Mild recurrent major depression Emphysema lung Hip bursitis Depression Essential hypertension Surgical History Xanthelasma of lower eyelid History of coronary angiogram Hx of left knee surgery H/O cataract removal with insertion of prosthetic lens H/O laminectomy Carpal tunnel syndrome on both sides Current (pre-evaluation) Intake/Diet: Route: PO Diet Grade: Puree Liquid Consistencies: Honey Pre-Study Functional Oral Intake Scale (FOIS): 5- Total oral intake of multiple consistencies requiring special preparation Pain: None reported at time of study SUBJECTIVE: Pt is a 73 year old female with history of pulmonary nodules, hypertension, and emphysema. Pt presented with septic shock due to streptococcal pneumonia on 08/18 with ICU course complicated by acute hypoxic respiratory failure. Pt was intubated, with acute renal failure, on hemodialysis; pt was extubated on 08/29, transferred to medical floor. Hospital course further complicated by aspiration, as pt was again intubated on 09/03, extubated on 09/04. She is being worked up for dysphagia and ongoing hemodialysis. Oral Motor Exam Facial Symmetry: Symmetrical Facial Movement: Controlled Mouth Occlusion: Normal Oral-Facial Teeth Characteristics: Intact/Normal Oral-Facial Lip Pucker Description: Reduced ROM Oral-Facial Smile (Lips) Description: Normal Oral-Facial Puff Cheeks Description: Normal Tongue Size: Normal Tongue Excursion Description: Normal Tongue Range of Movement Description: Normal Tongue Speed of Movement Description: Reduced Tongue Strength of Movement (against opposing pressure): Normal Tongue Movement Characteristics: Normal/Absent Food and Liquid Trials: Oral Impairment: Lip Closure: Did not test Oral Impairment: Tongue Control During Bolus Hold: Did not test Oral Impairment: Bolus Preparation/Mastication: 1=Slow prolonged chewing/mashing with complete re-collection Oral Impairment: Bolus Transport/Lingual Motion: 1= Delayed initiation of tongue motion Oral Impairment: Oral Residue: 2=Residue collection on oral structures Oral Impairment:Initiation of Pharyngeal Swallow: 3=Bolus head in pyriforms Pharyngeal Impairment: Soft Palate Elevation: 0=No bolus between soft palate (SP)/pharyngeal wall (PW) Pharyngeal Impairment: Laryngeal Elevation: 1=Partial thyroid cartilage/arytenoids to epiglottic petiole movement Pharyngeal Impairment: Anterior Hyoid Excursion: 1=Partial anterior movement Pharyngeal Impairment: Epiglottic Movement: 1=Partial inversion Pharyngeal Impairment: Laryngeal Vestibular Closure:: 1=Incomplete: narrow column air/contrast in laryngeal vestibule Pharyngeal Impairment: Pharyngeal Stripping Wave: 0=Present: complete Pharyngeal Impairment: Pharyngeal Contraction: Did not test Pharyngeal Impairment: Pharyngoesophageal Segment Openin=Partial distention/partial duration: partial obstruction of flow Pharyngeal Impairment: Tongue Base (TB) Retraction: 1=Trace column of contrast/air between TB and posterior PW Pharyngeal Impairment: Pharyngeal Residue: 2=Collection of residue within or on pharyngeal structures Pharyngeal Impairment: Esophageal Clearance Upright Position: Did not test Impressions and Recommendations OBJECTIVE: Time-out: performed at 14:45 Evaluation Start: 14:30; Stop: 14:35 Patient Positioning: Seated 70-90 degrees Viewing Planes: LATERAL ONLY Contrast: MBSImP? Standardized Protocol using commercially prepared, standardized Barium viscosities, including: Varibar? THIN LIQUID (40% w/v, <15 cps) , Varibar? NECTAR (40% w/v, <150-450 cps) , 1/2 Shortbread Cookie (1 x1 x.25 ) MBSImP ID: [id number] [facility] Results: Lip closure for intraoral bolus containment could not be assessed due to logistical reasons not related to physiologic impairment. Tongue control during bolus hold could not be assessed due to logistical reasons not related to physiologic impairment. Bolus preparation and mastication resulted in slow, prolonged chewing/mashing but with complete re-collection. Bolus transport/lingual motion demonstrated delayed initiation of tongue motion. Oral residue was a collection on oral structures. Initiation of the pharyngeal swallow occurred when the bolus head was in the pyriform sinuses. Soft palate elevation resulted in no bolus between the soft palate and the pharyngeal wall. Laryngeal elevation was decreased, with partial superior movement of the thyroid cartilage/partial approximation of the arytenoids to the epiglottic petiole. Anterior hyoid excursion demonstrated partial anterior movement. Epiglottic movement resulted in partial inversion. Laryngeal vestibular closure was incomplete, with a narrow column of air/contrast noted within the laryngeal vestibule at the height of the swallow. Pharyngeal stripping wave was present and complete. Pharyngeal contraction could not be determined due to logistical reasons not related to physiologic impairment. Pharyngoesophageal segment opening demonstrated partial distension/partial duration, with partial obstruction of bolus flow. Tongue base retraction allowed a trace column of contrast or air between the retracted tongue base and the posterior pharyngeal wall. Pharyngeal residue was a collection of residue within or on pharyngeal structures. Esophageal clearance in the upright position could not be assessed due to logistical reasons not related to physiologic impairment. Oral Impairment Score: 7 (absence of score, component 1component 2) Pharyngeal Impairment Score: 7 (absence of score, component 13) Esophageal Impairment Score: --- (absence of score, component 17) Laryngeal Penetration and Aspiration: Penetration was observed in today's study. [place]-thick Contrast entered the airway, remained above the vocal folds, and was ejected from the airway. Thin Contrast entered the airway, contacted the vocal folds, and was ejected from the airway. ASSESSMENT: Clinician Assessment: This exam was performed by the speech pathologist and radiologist. Pt was seated upright at 90 degrees in a stretcher. She was able to feed herself without difficulty, trialing the following consistencies: thin liquid barium (5 mL, individual cup sip, sequential cup sips), nectar thick liquid barium (individual cup sip, sequential cup sips), pureed solid (applesauce mixed with barium paste), regular solid (Sharri Doone cookie coated with barium paste). Unable to visualize labial seal with imaging. Clinically, pt did not appear to have any spillage beyond the jacque border. Posterior lingual motion was mildly delayed, but with brisk movement. Mastication was slowed and disorganized, characterized by anterior vertical chewing pattern. There was mild residue coating on the tongue and the palate, which cleared with subsequent swallows. Pharyngeal swallow trigger was notably delayed, initiated as the bolus head reached the pyriforms. There was no nasopharyngeal reflux. Incomplete laryngeal elevation. Epiglottis was retroflexed with partial inversion. Also noted incomplete laryngeal vestibular closure with contrast entering the airway. There was penetration of trace amount of contrast above the vocal folds on trials of nectar thick liquid, which spontaneously ejected from the airway. Penetration deeper to the level of the vocal folds on sips of thin liquid, with contrast coating the airway. Pt did not elicit a spontaneous, protective cough. She was cued for a volitional cough, which cleared most contrast. No evidence of penetration or aspiration with solids. There was mild to moderate pharyngeal retention, mostly in the valleculae given the flexed position of the epiglottis, but also collecting on the tongue base and pyriforms to a lesser degree. Follow-up bites of puree mostly cleared pharyngeal residue. Liquid Intake Recommendation: [place] Thick Liquid Intake Strategies: Small Sips, No Straws, Double Swallow Dietary Recommendations: Chopped/Advanced (NDD3) Medication Administration: Crushed with Puree Please contact the pharmacy regarding appropriate crushable or liquid drug formulations that are available whenever modified delivery is recommended. Compensatory Strategies Recommended: Sitting Upright (90 deg), Double Swallow, No Straw, Liquids from Cup, Liquids from Spoon, Small Bites and Sips, Alternate Liquids/Solids, Rate of Ingestion Change, Avoid Specific Foods Supervision during eating and or drinking: Total Supervision (1:1) Recommended Treatments: Compens. Strategy Educat. Recommendation for Speech Therapy: Inpatient Speech Therapy Speech Therapy through Rehab Facility Modified Barium Swallow Study - Outpatient Text Comment: Intake Recommendations: Route: PO Diet Grade: CHOPPED/ADVANCED (NDD3) Liquid Consistencies: [place] Post-Study Functional Oral Intake Scale (FOIS): 5- Total oral intake of multiple consistencies requiring special preparation Evidence of penetration above the vocal folds with intake of nectar thick liquid, increased to the level of the vocal folds with contrast coating the airway on thin liquid. Pt w/ decreased sensation, did not elicit a spontaneous cough in response to contrast entering the airway. Because residuals were likely to pass below the vocal folds, pt was asked to produce a volitional cough, which ejected most contrast from the airway. Epiglottis was retroflexed with partial inversion, leading to increased vallecular retention as well, particularly with hard solid. Pharyngeal retention mostly cleared with an additional bite of puree. Recommend UPGRADE to CHOPPED/ADVANCED (NDD3) diet, start on NECTAR THICK liquids for the time being given pt's recurrent aspiration events, recent ICU stay and extubation, and waxing/waning mentation. Speech therapy to continue with trials of thin liquid by teaspoon or cup, continued assessment for potential upgrade to thin liquids if appropriate given pt?s medical status. Ad interim, pt is recommended a [place] Water Protocol for comfort and to promote hydration. Per protocol, pt to be permitted water between meals with strict aspiration precautions and nursing or INSTRUCTIONAL AIDE supervision. Oral care to be provided after meals/before presentation of water. Water to be given by teaspoon or individual cup sip, with cues for volitional throat clear after sip. Following strategies are recommended to maximize feeding safety: -Liquids via teaspoon or individual cup sips -Avoid the use of straws -Moisten foods with sauces and gravies -Avoid sticky or hard foods; mixed consistencies (i.e. thin broth soup with solid ingredients) -Small bites, one bite at a time -Ensure oral cavity is clear before giving next bite -Follow bite with dry swallow then sip of liquid -Maintain 90 degree position during PO intake and for at least 30-45 minutes afterwards Therapy Recommendations: Therapy will be continued Prognosis for Improvement: The prognosis for the patient to meet nutritional needs by mouth is fair based on degree of impairment, stimulability for treatment. Shelter Goals: ? The patient will tolerate the least restrictive diet with a safe/efficient swallow to maintain adequate nutrition and hydration. ? The patient and/or family will participate in further education for swallowing goals. Short Term Goals: ? Diet - The patient will tolerate a modified dysphagia diet with nectar thick liquids without signs or symptoms of penetration/aspiration 100% of the time. - The patient will participate in therapeutic PO trials (thin liquid) with the INSTRUCTIONAL AIDE. ? Guidelines - The patient will comply with/recall the following guidelines/strategies 100% of the time with minimal cuing: [place]-thick Liquid, Bolus Volume Change, Rate of Ingestion Change, Effortful Swallow (used during PO intake), Cough Volitional, No Straws. ? Education - The patient, family, caregiver will verbalize/demonstrate understanding of the results of this evaluation, the above recommendations, and the swallowing guidelines. Frequency/Duration: M-F during inpatient stay Date Range for Service Requested: Recommend continuation of speech therapy for the treatment of dysphagia, during hospitalization and post-discharge, with repeat-MBSS when appropriate. Timeline to reassess: 3 months Clinician - Supplemental, Miscellaneous Communication: It is important to note MBSS objective studies are snapshots in time and Patient function might vary with factors such as time of day or concomitant medical conditions. For this reason, the final treatment plan for this patient should rest with their medical care team. Additional recommendations should be considered with the totality of the Patient in mind. Thank for the opportunity to participate in the care of this patient. If you have any questions about the content of this report, please contact the [facility] at [facility]. Education: Education regarding findings from today's study and plans for therapy were provided to Patient only through Written Instruction. Understanding was expressed by the Patient only. Recommend continuation of speech therapy for the treatment of dysphagia, during hospitalization and post-discharge, with repeat-MBSS when appropriate. Stripping And Booking Machine Operator Clinician/Clinical Fellow: No Supervisory Statement: N/A Speech Language Pathologist: Pauline Avila M.A., CCC-INSTRUCTIONAL AIDE
--- NOTE | 2023-09-10 09:51 | P.PNNP_ITS ---
Subjective Subjective Date of Service: 09/19/23 Interval history: No acute issues overnight; IR called and Bx of Kidney may not be possible until next week Physical Exam 2 Vital Signs: Vital Signs: Last Vital Signs Temp 96.8 F 09/10/23 07:25 Pulse 92 09/10/23 07:25 Resp 16 09/10/23 07:25 BP 156/72 H 09/10/23 07:25 Pulse Ox 94 09/10/23 07:25 O2 Del Method Nasal Cannula 09/10/23 07:25 O2 Flow Rate 2 09/10/23 07:25 FiO2 25 09/04/23 17:00 BMI result Body Mass Index 30.8 Const: Other: Awake alert no acute distress Resp: Other: Clear to auscultation bilaterally no rales rhonchi or wheezes Cardio: Other: No S4; positive S1-S2; no S3 murmurs rubs or gallops GI: Other: Soft nontender nondistended normoactive bowel sounds Extrem: Other: No edema bilaterally Objective Data Labs 09/18/23 05:12 09/18/23 05:12 Labs: Laboratory Results - last 24 hr 09/06/23 05:44 MAXX Screen NEGATIVE Double Strand DNA Ab 1 Microbiology Microbiology Results: Microbiology 09/03/23 21:22 Blood - Venous Blood Culture - Final No growth after 5 days. 09/03/23 21:22 Blood - Venous Blood Culture - Final No growth after 5 days. 09/03/23 22:53 Sputum - Suctioned Gram Stain - Final 09/03/23 22:53 Sputum - Suctioned Sputum Culture - Final Laura albicans 09/01/23 06:30 Blood - Venous Blood Culture - Final No growth after 5 days. 09/01/23 06:30 Blood - Venous Blood Culture - Final No growth after 5 days. 08/26/23 13:39 Blood - Venous Blood Culture - Final No growth after 5 days. 08/26/23 13:39 Blood - Venous Blood Culture - Final No growth after 5 days. 08/18/23 21:45 Blood - Venous Blood Culture - Final Streptococcus pneumoniae 08/18/23 20:17 Blood - Venous Blood Culture - Final Streptococcus pneumoniae Procedures Date of Service Date of Service: 09/19/23 Assessment & Plan Assessment and plan (1) BRE (acute kidney injury): Status: Acute Assessment and Plan: Remains oligoanuric DDX includes ATN, but has underlying MGUS, low complements so ddx includes myeloma kidney, cryoglobulinemia. Doubt lupus nephritis or mixed connective tissue disease but possible given RA; postinfectious GN possible. Plan HD TTS - Contineu D today Has a IJ Perm cath Await cryoglobulins, ds DNA ( MAXX : Other serologies negative ) Needs a renal biopsy given: No BRE recovery +ve immunofixation with BRE / Low compliments - ? periinfectious GN - I will discuss with medical team and IR Bx will happen only next wee- Can wait If Pt ready to be d/c'd we will do it as out pt. If pt staying in house Bx on Thursday ? Suggest Hematology eval for +ve Immunofixation Avodi Nephrotoxins Out pt Hd spot being arranged( I have sent insurance info to [facility] - ? [place] in [place]) _ Need to know the disposition of this patient - ? 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 Progress Note: Quality Stroke Does the patient have a stroke diagnosis?: No
--- NOTE | 2023-09-10 11:01 | HO.PM.IMPN ---
Subjective Subjective Date of Service: 09/10/23 Interval History: seen in HD minimal cough no dyspnea no abd pain Review of Systems Review of Systems: Yes all other systems are reviewed and are negative Physical Exam Vital Signs: Vital Signs: Last Vital Signs Temp 96.8 F 09/10/23 07:25 Pulse 92 09/10/23 07:25 Resp 16 09/10/23 07:25 BP 156/72 H 09/10/23 07:25 Pulse Ox 94 09/10/23 07:25 O2 Del Method Nasal Cannula 09/10/23 07:25 O2 Flow Rate 2 09/10/23 07:25 FiO2 25 09/04/23 17:00 BMI result Body Mass Index 30.8 Gen: in no acute distress HEENT: sclera anicteric, moist mucus membranes Neck: supple, RIJ HD catheter Lungs: diminished Heart: regular rate and rhythm, no murmurs Abd: soft, non-tender, non-distended Ext: no edema Skin: warm/well-perfused Neuro: alert and oriented x3, no focal findings Psych: appropriate affect Objective Data Active Medications Acetaminophen (Acetaminophen 325 Mg Tablet) 650 mg PO Q6H PRN PRN Reason: Pain, Mild (Pain Scale 1-3) Last Admin: 09/03/23 03:09 Dose: 650 mg Documented By: FRANCIE Amlodipine Besylate (Amlodipine Besylate 5 Mg Tablet) 5 mg PO DAILY [facility]; Protocol Last Admin: 09/10/23 08:37 Dose: 5 mg Documented By: YARA Artificial Tears (Artificial Tears 15 Ml Drops) 2 drop EYE-BOTH Q4H PRN PRN Reason: Dry Eyes Last Admin: 08/29/23 08:33 Dose: 2 drop Documented By: ESTEFANIA Dextrose (Dextrose 50 % 25 Gm/50 Ml Syringe) 25 gm IVPUSH Q15M PRN PRN Reason: per Hypoglycemia Standing Ord. Last Admin: 08/21/23 13:27 Dose: 25 gm Documented By: HAROON Glucose (Glucose Gel 15 Gm Gel..Gram.) 15 gm PO Q15M PRN PRN Reason: per Hypoglycemia Standing Ord. Last Admin: 08/19/23 16:40 Dose: 15 gm Documented By: AVRIL Heparin Sodium (Porcine) (Heparin Sodium,Porcine 5,000 Unit/Ml Vial) 5,000 unit SUBCUT Q8H [facility] Last Admin: 09/07/23 17:45 Dose: 5,000 unit Documented By: TAMICA Lactated Ringer's (Lr) 1,000 mls @ 125 mls/hr IVCONT .Q8H [facility] Last Admin: 09/10/23 08:48 Dose: 125 mls/hr Documented By: YARA Lidocaine (Lidocaine 4 % Patch Adh..Patch) 2 patch TRANSDERMA DAILY [facility]; Protocol Last Admin: 09/10/23 08:36 Dose: 2 patch Documented By: YARA Methylprednisolone Sodium Succinate (Methylprednisolone Sod Succ 40 Mg/Ml Vial) 8 mg IVPUSH Q24H [facility] Last Admin: 09/10/23 08:37 Dose: 8 mg Documented By: YARA Nystatin (Nystatin Powder 15 Gm Bottle) 1 appl TOPICAL BID [facility]; Protocol Last Admin: 09/10/23 08:47 Dose: 1 appl Documented By: YARA Ondansetron HCl (Ondansetron Hcl 4 Mg/2 Ml Vial) 4 mg IVPUSH Q6H PRN PRN Reason: Nausea and Vomiting Last Admin: 08/20/23 19:24 Dose: 4 mg Documented By: PRATEEK Labs 09/09/23 05:43 09/09/23 05:43 Labs: Laboratory Results - last 24 hr 09/06/23 05:44 MAXX Screen NEGATIVE Double Strand DNA Ab 1 Assessment and Plan (1) Pulmonary aspiration: Status: Acute (2) BRE (acute kidney injury): Status: Acute (3) Dysphasia: Status: Acute Plan d24 73yo F with sarcoidoisis + RA on Orencia admitted to ICU due to septic shock from streptococcal pneumonia/bacteremia, intubated 08/21/23 for acute hypoxic respiratory failure ICU course complicated by demand NSTEMI and BRE requiring HD extubated 08/29 and stepped down to hospitalist service 08/31 aspirated and re-intubated 09/03/23 but extubated 09/04/23 stepped down to hospitalist service 09/07/23 BRE - HD started 08/21, Nephrology following, IR renal biopsy pending, has tunneled RIJ catheter placed 09/08/23 - has MGUS; will consult Heme-Onc as per Nephro recommendation AHRF due to aspiration AHRF and septic shock due to invasive pneumococcal disease - wean O2 as tolerated - completed antibiotics as follows, will discuss with ID: - cefazolin 08/19-08/22/23 - pip-terrie 08/18-08/19/23, 09/01-09/05/23 - metronidazole 08/19-08/23/23 - vancomycin 08/19/23 once and again on 09/03/23 hx AF/RVR acute HFrEF NSTEMI, likely demand - TTE 08/19/23: 1. Moderate to severe reduction LV ejection fraction with LVEF of 30-35% with impaired relaxation filling pattern 2. Mild mitral calcification and calcific aortic valve changes noted with cardiac valvular Dopplers within normal limits 3. No gross pericardial effusion - EKG, Cardiology consult, will need neurohormonal modulation dysphagia - NDD3 diet, MBSS pending, PIE[employer]TER following L-sided hearing loss - ?from invasive pneumococcal disease. consult Neuro. did not get any aminoglycosides in ICU RA sarcoidosis - transition back to regular dose of prednisone 10 mg daily VTE ppx - hold UFH for renal biopsy dispo - eventual HD In my clinical judgment, the patient requires continued inpatient hospitalization for the following reasons: HD, renal biopsy Total time managing care of this patient today: 50 minutes. Quality Stroke Does the patient have a stroke diagnosis?: No VTE Prior VTE?: No VTE Risk Level:: Medical - moderate - high VTE Device Contraindication: N/A - Device Ordered VTE Drug Contraindication: N/A - Med Ordered
[2023-09-10 11:23] LABS: MANUAL DIFF FLAG NO
[2023-09-10 11:31] LABS: Basophils Percent Auto 0.4 % (0-2); Eosinophils Percent Auto 0.6 % (0-4); Hematocrit 25.6 % (37.0-47.0); Hemoglobin 8.5 g/dl (12.0-16.0); Imm Gran Abs Auto 0.07 X10*3/uL (0.00-0.03); Lymphocytes Absolute Auto 0.6 X10*3/uL (1.2-4.9); Lymphocytes Percent Auto 8.7 % (20-40); Mean Corpuscular HGB Conc 33.2 g/dl (31.0-35.0); Mean Corpuscular Hemoglobin 29.8 pg (27.0-33.0); Mean Corpuscular Volume 89.8 fL (80.0-98.0); Mean Platelet Volume 10.9 fL (9.4-12.3); Neutrophils Absolute Auto 5.3 x10*3/uL (2.0-8.3); Neutrophils Percent Auto 75.3 % (45-73); Platelet Count 253 X10*3/uL (160-400); Red Blood Count 2.85 X10*6/uL (4.20-5.50); Red Cell Distribution Width 14.9 % (11.0-16.0)
[2023-09-10 11:37] LABS: Anion Gap 15 (12-20); Blood Urea Nitrogen 32 mg/dL (9-16); Calcium 8.4 mg/dL (8.4-10.2); Carbon Dioxide 26 mmol/L (22-29); Chloride 96 mmol/L (96-108); Estimated Glomerular Filt Rate 25; Glucose Random 92 mg/dL (60-115); Potassium 3.5 mmol/L (3.3-5.1); Sodium 133 mmol/L (135-145)
--- NOTE | 2023-09-10 14:17 | P.CNHO_ITS ---
Subjective - Subjective Chief complaint: Weakness Patient: known to practice within the last 3 years Consult date: 09/11/23 Requesting Physician: Dr Park Primary Care Provider: Miguelina Flor MD HPI - Consult Narrative Reason for consult: History of MGUS, renal failure Narrative: Tasha Nieto is a 73 year old female with history of sarcoidosis/rheumatoid arthritis who presented with septic shock secondary to streptococcal pneumonia on and admitted to ICU. She developed acute hypoxic respiratory failure requiring intubation, acute renal failure requiring hemodialysis, she was extubated on 08/29/2023 but she aspirated on the floor and was reintubated on 09/03/2023. She was finally extubated on 09/04/2023. She has a history of IgG kappa monoclonal gammopathy for which she is being monitored by Dr. Luciano for several years. Her IgG level is not elevated but this is suppression of IgM and IgA levels. Kidney functions were completely normal in July 2023. She continues to receive hemodialysis for kidney failure that was diagnosed in July during this current hospitalization. Review of Systems - Constitutional Reports as per HPI - Neurologic Reports confusion [facility] Medical History: Medical History (Last Reviewed 09/09/23 @ 14:28 by Mireille Awad PT) Depression Emphysema lung Essential hypertension Hip bursitis Mild recurrent major depression Pulmonary nodules Streptococcal pneumonia Xanthelasma Family History: Family History (Last Reviewed 08/19/23 @ 17:05 by Rohit Felipe MD) Mother Leukemia Father Diabetes Heart disease Brother Heart disease Other No family history of cancer Surgical History: Surgical History (Last Reviewed 09/09/23 @ 14:28 by Mireille Awad PT) Carpal tunnel syndrome on both sides H/O cataract removal with insertion of prosthetic lens H/O laminectomy History of coronary angiogram Hx of left knee surgery Xanthelasma of lower eyelid Social History: Social History (Last Reviewed 08/19/23 @ 17:05 by Rohit Felipe MD) Living Situation History: Household Members: Spouse Housing: House Are you a primary care companion to a significant other at home: Yes Are you a primary care companion to a significant other at home comment: Son Do you presently have visiting nurse or other home services: No Alcohol History: Unable to assess alcohol history related to: Unknown Tobacco History: Patient Tobacco Use Status: Former Tobacco user Tobacco use type: Cigarette e-Cigarette/Vaping Use: Never Used Second Hand Smoke Exposure: No Substance Use History: Substance Use Type: Marijuana Occupation Assessmet: service: No Current occupational status: employed Current occupational status: retired Home Medications and Allergies Current Medications: Current Medications Acetaminophen (Acetaminophen 325 Mg Tablet) 650 mg PO Q6H PRN PRN Reason: Pain, Mild (Pain Scale 1-3) Last Admin: 09/03/23 03:09 Dose: 650 mg Amlodipine Besylate (Amlodipine Besylate 5 Mg Tablet) 5 mg PO DAILY [facility]; Protocol Last Admin: 09/10/23 08:37 Dose: 5 mg Artificial Tears (Artificial Tears 15 Ml Drops) 2 drop EYE-BOTH Q4H PRN PRN Reason: Dry Eyes Last Admin: 08/29/23 08:33 Dose: 2 drop Dextrose (Dextrose 50 % 25 Gm/50 Ml Syringe) 25 gm IVPUSH Q15M PRN PRN Reason: per Hypoglycemia Standing Ord. Last Admin: 08/21/23 13:27 Dose: 25 gm Glucose (Glucose Gel 15 Gm Gel..Gram.) 15 gm PO Q15M PRN PRN Reason: per Hypoglycemia Standing Ord. Last Admin: 08/19/23 16:40 Dose: 15 gm Heparin Sodium (Porcine) (Heparin Sodium,Porcine 5,000 Unit/Ml Vial) 5,000 unit SUBCUT Q8H [facility] Last Admin: 09/07/23 17:45 Dose: 5,000 unit Lidocaine (Lidocaine 4 % Patch Adh..Patch) 2 patch TRANSDERMA DAILY [facility]; Protocol Last Admin: 09/10/23 08:36 Dose: 2 patch Nystatin (Nystatin Powder 15 Gm Bottle) 1 appl TOPICAL BID [facility]; Protocol Last Admin: 09/10/23 08:47 Dose: 1 appl Ondansetron HCl (Ondansetron Hcl 4 Mg/2 Ml Vial) 4 mg IVPUSH Q6H PRN PRN Reason: Nausea and Vomiting Last Admin: 08/20/23 19:24 Dose: 4 mg Prednisone (Prednisone 10 Mg Tablet) 10 mg PO DAILY [facility] Home Medications Medication Instructions Recorded Confirmed Type clopidogrel 75 mg tablet (Plavix) 75 mg PO DAILY 06/28/20 08/19/23 History alirocumab 150 mg/mL subcutaneous 150 mg subcut Q2W 06/17/22 08/19/23 History pen injector (Praluent Pen) Allergies Allergy/AdvReac Type Severity Reaction Status Date / Time Uopohzj-IIL-BwI Reductase Allergy Severe ANAPHYLACTI Verified 08/18/23 18:47 Inhibitor C [[id number] REDUCTASE INHIBITOR] Physical Exam Vital signs: Vital Signs Temp 96.8 F 09/10/23 07:25 Pulse 92 09/10/23 07:25 Resp 16 09/10/23 07:25 BP 156/72 H 09/10/23 07:25 Pulse Ox 94 09/10/23 07:25 O2 Del Method Nasal Cannula 09/10/23 07:25 O2 Flow Rate 2 09/10/23 07:25 FiO2 25 09/04/23 17:00 Intake & Output 09/09/23 09/10/23 09/10/23 18:59 06:59 18:59 Intake Total 1329.583 / 4006.666 2677.083 / 4006.666 1817.083 / 1817.083 Balance 1329.583 / 4006.666 2677.083 / 4006.666 1817.083 / 1817.083 Intake: Intake, Oral Amount 240 / 1840 1600 / 1840 240 / 240 Intake, IV Amount 1089.583 / 2166.666 1077.083 / 2166.666 1577.083 / 1577.083 Acetaminophen 1,000 mg In 100 200 / 400 200 / 400 100 / 100 ml @ 400 mls/hr IV Q6H [facility] Rx#: [id number] Lactated Ringers 1,000 ml @ 125 889.583 / 1766.666 877.083 / 2990.133 0508.083 / 1477.083 mls/hr IVCONT .Q8H [facility] Rx#: [id number] Other: Meal Refused No No No NPO Yes Yes No Breakfast % Eaten npo 25% Lunch % Eaten 100% 25% Dinner % Eaten 50% Number of Incontinent Voids 1 Number of Unmeasured Voids 2 Number of Bowel Movements 1 1 Last Bowel Movement 09/10/23 Stool Incontinent Incontinent Incontinent Stool Amount Scant Large Stool Color Black (Tarry) Dark Brown Stool Consistency Loose Mushy Weight 86.5 kg - Constitutional Present: no acute distress, chronically ill appearing - Routine HEENT Exam Head: Present: normal inspection Eye: Present: conjunctivae pale - Routine Neck Exam Absent: lymphadenopathy - Routine Respiratory Exam Absent: accessory muscle use - Routine Cardiovascular Exam Cardiovascular: Present: S1, S2 - Routine Extremities Exam Present: pulses intact - Routine Neurological Exam Present: alert, oriented X3 Hem/Onc Consult Result - Labs CBC & Chem 7: 09/11/23 04:36 09/11/23 04:36 Labs: Short CBC 09/10/23 Range/Units 11:15 WBC 7.0 (4.8-10.8) X10*3/uL Hgb 8.5 L (12.0-16.0) g/dl Hct 25.6 L D (37.0-47.0) % Plt Count 253 (160-400) X10*3/uL BMP 09/10/23 11:15 Sodium 133 L Potassium 3.5 Chloride 96 Carbon Dioxide 26 BUN 32 H Creatinine 1.98 H Calcium 8.4 Assessment and Plan Patient Active problem list reviewed?: Yes (1) MGUS (monoclonal gammopathy of unknown significance) Status: Chronic Assessment and plan: 1. This is a 73-year-old woman with history of sarcoidosis/rheumatoid arthritis and longstanding IgG kappa monoclonal gammopathy presenting with acute kidney injury after admission for MSSA pneumonia/bacteremia, septic shock and respiratory failure requiring intubation. Her kidney functions were completely normal in July 2023, prior to this admission. Prior to her current admission, her hemoglobin was normal at 13.1 gram/dL, she does not have hypercalcemia, no evidence of lytic lesions. Her IgG levels have remained stable. Free kappa/lambda level was ordered yesterday and is pending. Given the fact that her kidney injury was clearly triggered by recent events of septic shock, it is less likely that she developed myeloma nephropathy suddenly without any evidence of this on her most recent blood work. Further tests such as free kappa/lambda light chain assay/ratio and 24 hour urine for immunofixation and light chain ratio would be helpful. Kidney biopsy would definitively establish the diagnosis. I thank you for the consultation. - Time Spent With Patient Time Spent with Patient (in minutes): 20
--- NOTE | 2023-09-10 14:27 | MHC.CM.PN ---
CM SPOKE WITH HCP/SPOUSE ALEAH AND PT WHO REQUESTS [facility] FOR [facility] FOR REHAB. REFERRAL REVIEWED BY LIAISON AND WILL FOLLOW. SPOUSE ALSO TOURED FACILITY TODAY. CM WILL CONTINUE TO FOLLOW FOR ANY CHANGE IN DC PLAN/NEEDS. PT CONTINUES TO USE [employer] [employer] TO COMMUNICATE.
--- NOTE | 2023-09-10 14:54 | P.CNNE_ITS ---
History of Present Illness Data of Consult Service Date: 09/10/23 Primary Care Provider: Miguelina Flor MD HPI Reason for consult: Hearing impairment 73yo F with sarcoidoisis + RA on Orencia, admitted to ICU due to septic shock from streptococcal pneumonia/bacteremia, intubated 08/21/23 for acute hypoxic respiratory failure. ICU course complicated by demand NSTEMI and BRE requiring HD, extubated 08/29 and stepped down to hospitalist service 08/31. Aspirated and re-intubated 09/03/23 but extubated 09/04/23, stepped down to hospitalist service 09/07/23. This consultation was requested for loss of hearing. Review of Systems 2 Review of Systems: No headache or ear pain at this time. [facility] Past Medical History Medical History (Updated 09/10/23 @ 14:59 by Dre Hackett MD) Streptococcal pneumonia Xanthelasma Pulmonary nodules Mild recurrent major depression Emphysema lung Hip bursitis Depression Essential hypertension Family History Family History Mother Leukemia Father Diabetes Heart disease Brother Heart disease Other No family history of cancer Surgical History Surgical History (Updated 09/10/23 @ 14:17 by Octavia Falk MD) Xanthelasma of lower eyelid History of coronary angiogram Hx of left knee surgery H/O cataract removal with insertion of prosthetic lens H/O laminectomy Carpal tunnel syndrome on both sides Social History Social History Household Members: Spouse Housing: House Are you a primary patient care technician to a significant other at home: Yes (Son) Do you presently have visiting nurse or other home services: No Unable to assess alcohol history related to: Unknown Alcohol intake: current Alcohol intake frequency: holidays/special occasions only Alcohol type: wine Comment: bilateral wrist restraints--intubated Patient Tobacco Use Status: Former Tobacco user Tobacco use type: Cigarette e-Cigarette/Vaping Use: Never Used Second Hand Smoke Exposure: No Substance Use Type: Marijuana service: No Current occupational status: employed and retired Cognitive needs: No Hearing needs: No Vision needs: Yes (reading glasses) Meds Allergies Allergy/AdvReac Type Severity Reaction Status Date / Time Nmxepdg-RTI-FoR Reductase Allergy Severe ANAPHYLACTI Verified 08/18/23 18:47 Inhibitor C [[id number]-[id number]-LMM REDUCTASE INHIBITOR] Active Medications: Current Medications Acetaminophen (Acetaminophen 325 Mg Tablet) 650 mg PO Q6H PRN PRN Reason: Pain, Mild (Pain Scale 1-3) Last Admin: 09/03/23 03:09 Dose: 650 mg Amlodipine Besylate (Amlodipine Besylate 5 Mg Tablet) 5 mg PO DAILY [facility]; Protocol Last Admin: 09/10/23 08:37 Dose: 5 mg Artificial Tears (Artificial Tears 15 Ml Drops) 2 drop EYE-BOTH Q4H PRN PRN Reason: Dry Eyes Last Admin: 08/29/23 08:33 Dose: 2 drop Dextrose (Dextrose 50 % 25 Gm/50 Ml Syringe) 25 gm IVPUSH Q15M PRN PRN Reason: per Hypoglycemia Standing Ord. Last Admin: 08/21/23 13:27 Dose: 25 gm Glucose (Glucose Gel 15 Gm Gel..Gram.) 15 gm PO Q15M PRN PRN Reason: per Hypoglycemia Standing Ord. Last Admin: 08/19/23 16:40 Dose: 15 gm Heparin Sodium (Porcine) (Heparin Sodium,Porcine 5,000 Unit/Ml Vial) 5,000 unit SUBCUT Q8H [facility] Last Admin: 09/07/23 17:45 Dose: 5,000 unit Lidocaine (Lidocaine 4 % Patch Adh..Patch) 2 patch TRANSDERMA DAILY [facility]; Protocol Last Admin: 09/10/23 08:36 Dose: 2 patch Nystatin (Nystatin Powder 15 Gm Bottle) 1 appl TOPICAL BID [facility]; Protocol Last Admin: 09/10/23 08:47 Dose: 1 appl Ondansetron HCl (Ondansetron Hcl 4 Mg/2 Ml Vial) 4 mg IVPUSH Q6H PRN PRN Reason: Nausea and Vomiting Last Admin: 08/20/23 19:24 Dose: 4 mg Prednisone (Prednisone 10 Mg Tablet) 10 mg PO DAILY [facility] Home Medications Medication Instructions Recorded Confirmed Last Taken Type clopidogrel 75 mg tablet (Plavix) 75 mg PO DAILY 06/28/20 08/19/23 Unknown History alirocumab 150 mg/mL subcutaneous 150 mg subcut Q2W 06/17/22 08/19/23 Unknown History pen injector (Praluent Pen) Physical Exam 2 Vital Signs: Vital Signs: Last Vital Signs Temp 96.8 F 09/10/23 07:25 Pulse 92 09/10/23 07:25 Resp 16 09/10/23 07:25 BP 156/72 H 09/10/23 07:25 Pulse Ox 94 09/10/23 07:25 O2 Del Method Nasal Cannula 09/10/23 07:25 O2 Flow Rate 2 09/10/23 07:25 FiO2 25 09/04/23 17:00 BMI result Body Mass Index 30.8 Neuro: Other: She is alert and awake with normal spontaneity of speech fluency comprehension and depressed affect. She did not hear what I said but was able to communicate with written material. Face was symmetrical. There was no nystagmus. Visual sinha were full. Trophic skin changes were noted and hands in feet. Deep tendon reflexes were absent. Results Labs 09/10/23 11:15 09/10/23 11:15 Labs: Short CBC 09/10/23 Range/Units 11:15 WBC 7.0 (4.8-10.8) X10*3/uL Hgb 8.5 L (12.0-16.0) g/dl Hct 25.6 L D (37.0-47.0) % Plt Count 253 (160-400) X10*3/uL BMP 09/10/23 11:15 Sodium 133 L Potassium 3.5 Chloride 96 Carbon Dioxide 26 BUN 32 H Creatinine 1.98 H Calcium 8.4 Brain MRI revealed mild diffuse atrophy and mild microvascular ischemic changes. Microbiology Microbiology Results: Microbiology 09/03/23 21:22 Blood - Venous Blood Culture - Final No growth after 5 days. 09/03/23 21:22 Blood - Venous Blood Culture - Final No growth after 5 days. 09/03/23 22:53 Sputum - Suctioned Gram Stain - Final 09/03/23 22:53 Sputum - Suctioned Sputum Culture - Final Laura albicans 09/01/23 06:30 Blood - Venous Blood Culture - Final No growth after 5 days. 09/01/23 06:30 Blood - Venous Blood Culture - Final No growth after 5 days. 08/26/23 13:39 Blood - Venous Blood Culture - Final No growth after 5 days. 08/26/23 13:39 Blood - Venous Blood Culture - Final No growth after 5 days. 08/18/23 21:45 Blood - Venous Blood Culture - Final Streptococcus pneumoniae 08/18/23 20:17 Blood - Venous Blood Culture - Final Streptococcus pneumoniae Assessment and Plan (1) Acute hearing loss: Qualifiers: Laterality: bilateral Qualified Code(s): H91.93 - Unspecified hearing loss, bilateral Status: Acute 73 years old woman with underlying sarcoid was treated for pneumonia recently. I was asked to see for loss of hearing. Her examination revealed asymmetric hearing loss with more so on the right side the left. My recommendation is to obtain MRI of brainstem with contrast to see of sarcoid was responsible for this symptom. Differential diagnosis would also include iatrogenic or infectious or toxic reasons. I am not sure if she has received unknown auto toxic drug. She should also see an ENT doctor after discharge and have proper evaluation and appropriate testing. She may benefit from hearing aid Procedures Date of Service Date of Service: 09/10/23
[2023-09-10 15:15] VITALS: BP 147/67; PULSE 100; RESP 18; TEMP 36.3; O2SAT 96
--- NOTE | 2023-09-10 15:22 | MHC.SL.SWA ---
Speech Pathologist Impression: Risk of Aspiration Due to: Lethargy History of Pneumonia Hx of Recent Extubation Dysphasia Diet Status: Diet Grade: CHOPPED/ADVANCED (NDD3) Liquid Consistencies: [place] Liquid Consistency and Strategies for Safe Swallow: Liquid Intake Recommendation: [place] Thick Liquid Intake Strategies: Small Sips No Straws Double Swallow Solid Food Consistency: Dietary Recommendations: Chopped/Advanced (NDD3) Additional Modifications to Solid Foods: Oral Medication Intake: Crushed with Puree Please contact the pharmacy regarding appropriate crushable or liquid drug formulations that are available whenever modified delivery is recommended. Compensatory Strategies and Precautions to be Taken for Safe Swallow: Sitting Upright (90 deg) Double Swallow No Straw Liquids from Cup Liquids from Spoon Small Bites and Sips Alternate Liquids/Solids Rate of Ingestion Change Avoid Specific Foods Supervision While Eating and Drinking for Safe Swallow: Total Supervision (1:1) Foods to Avoid: Avoid sticky or hard foods; mixed consistencies (i.e. thin broth soup with solid ingredients) Swallowing Recommended Treatments: Compens. Strategy Educat. Recommendation for Speech: Inpatient Speech Therapy Speech Therapy through Rehab Facility Modified Barium Swallow Study - Outpatient Comment: Patient was in Dialysis all a.m. FREIGHT RATE ANALYST saw patient in early afternoon to review MBSS study and do [place] Free Water Treatment (FFWT). Patient had just received good news from the physician, and was in a very good mood. FREIGHT RATE ANALYST communicated with patient primarily using erasaAppature white board, due to [place]. Patient was instructed in steps involved in FFWT, to which she responded Oh I do this all the time, several times a day which was difficult to interpret. Patient did self oral care for teeth, was assisted with tongue, cheeks, roof of mouth. Patient then took sips of water by spoon. After two swallows, patient said that's enough, but was encouraged to take four more sips/swallows which she agreed to. No family members were present at the time of this visit, and Patient reported they may not be in today, but would be in tomorrow. FREIGHT RATE ANALYST left copy of MBSS eval from 09/09/23 for patient to share with Family. FREIGHT RATE ANALYST will be available tomorrow to discuss/answer questions with family members. Frequency/Duration: M-F during inpatient stay Date Range for Service Req: Recommend continuation of speech therapy for the treatment of dysphagia, during hospitalization and post-discharge, with repeat-MBSS when appropriate. Timeline to reassess: 3 months Label Printer Clinican/Clinical Fellow: No Supervisory Statement: I have reviewed and agree with the student/clinical fellow's documentation: N/A Speech Language Pathologist: Marbella Paris M.A., CCC-FREIGHT RATE ANALYST
[2023-09-10 19:34] VITALS: BP 158/76; PULSE 102; RESP 18; TEMP 36.6; O2SAT 96
[2023-09-10] MEDS: gadobutroL 10 ML VIAL 9 ML IVPUSH (21:03)
[2023-09-10] MEDS: Acetaminophen 325 MG TABLET 650 MG PO (21:32)
[2023-09-11 04:00] VITALS: BP 156/75; PULSE 87; RESP 16; TEMP 36.9; O2SAT 95
[2023-09-11 04:54] LABS: Basophils Absolute Auto 0.1 X10*3/uL (0.0-0.2); Basophils Percent Auto 0.9 % (0-2); Eosinophils Absolute Auto 0.1 X10*3/uL (0.0-0.4); Eosinophils Percent Auto 1.8 % (0-4); Hematocrit 27.1 % (37.0-47.0); Hemoglobin 8.7 g/dl (12.0-16.0); Imm Gran Abs Auto 0.09 X10*3/uL (0.00-0.03); Imm Gran Pct Auto 1.1 % (0.0-0.4); Lymphocytes Absolute Auto 1.6 X10*3/uL (1.2-4.9); Lymphocytes Percent Auto 19.9 % (20-40); MANUAL DIFF FLAG SCAN; Mean Corpuscular HGB Conc 32.1 g/dl (31.0-35.0); Mean Corpuscular Hemoglobin 30.1 pg (27.0-33.0); Mean Corpuscular Volume 93.8 fL (80.0-98.0); Mean Platelet Volume 10.9 fL (9.4-12.3); Monocytes Absolute Auto 2.1 X10*3/uL (0.1-1.2); Monocytes Percent Auto 26.7 % (2-11); Neutrophils Absolute Auto 3.9 x10*3/uL (2.0-8.3); Neutrophils Percent Auto 49.6 % (45-73); Platelet Count 260 X10*3/uL (160-400); Red Blood Count 2.89 X10*6/uL (4.20-5.50); SCAN SMEAR FLAG 1; White Blood Count 7.9 X10*3/uL (4.8-10.8)
[2023-09-11 05:13] LABS: Anion Gap 18 (12-20); Blood Urea Nitrogen 42 mg/dL (9-16); Calcium 8.3 mg/dL (8.4-10.2); Carbon Dioxide 22 mmol/L (22-29); Chloride 96 mmol/L (96-108); Creatinine Clr Calc Pharmacy 20.1; Estimated Glomerular Filt Rate 17; Glucose Random 76 mg/dL (60-115); Potassium 3.6 mmol/L (3.3-5.1); Sodium 132 mmol/L (135-145)
[2023-09-11 05:17] LABS: SLIDE REVIEW VERIFIED
[2023-09-11 07:35] VITALS: BP 149/70; PULSE 99; RESP 14; TEMP 36; O2SAT 93
[2023-09-11] MEDS: Acetaminophen 325 MG TABLET 650 MG PO (08:15)
[2023-09-11] MEDS: amLODIPine Besylate 5 MG TABLET PO (09:09)
[2023-09-11] MEDS: predniSONE 10 MG TABLET PO (09:09)
[2023-09-11] MEDS: Nystatin Powder 15 GM BOTTLE 1 APPL TOPICAL ×2 (09:10→20:22)
[2023-09-11] MEDS: Lidocaine 4 % Patch ADH..PATCH 2 PATCH TRANSDERMA (09:13)
--- NOTE | 2023-09-11 09:20 | MHC.CLN ---
NUTRITION DIET=REGULAR, CHOPPED, NECTAR THICK LIQUIDS. INTAKE VARIABLE, WITH MOST MEALS 25-50%. ADDING MAGIC CUP FORTIFIED ICE CREAM TID. PROVIDES 8[address], [address] TO MONITOR UP WEEKLY.
--- NOTE | 2023-09-11 09:21 | HO.PM.IMPN ---
Subjective Subjective Date of Service: 09/11/23 Interval History: ongoing L>R sided hearing loss, communication via amplification device + writing no cough c/o back/hip pain Review of Systems Review of Systems: Yes all other systems are reviewed and are negative Physical Exam Vital Signs: Vital Signs: Last Vital Signs Temp 96.8 F 09/11/23 07:35 Pulse 99 09/11/23 07:35 Resp 14 09/11/23 07:35 BP 149/70 H 09/11/23 07:35 Pulse Ox 93 09/11/23 07:35 O2 Del Method Nasal Cannula 09/11/23 07:35 O2 Flow Rate 2 09/11/23 07:35 FiO2 25 09/04/23 17:00 BMI result Body Mass Index 30.8 Gen: in no acute distress HEENT: sclera anicteric, moist mucus membranes, diminished hearing L>R Neck: supple, RIJ HD catheter Lungs: diminished Heart: regular rate and rhythm, no murmurs Abd: soft, non-tender, non-distended Ext: no edema Skin: warm/well-perfused Neuro: alert and oriented x3, no focal findings Psych: appropriate affect Objective Data Active Medications Acetaminophen (Acetaminophen 325 Mg Tablet) 650 mg PO Q4H PRN PRN Reason: Pain, Mild (Pain Scale 1-3) Amlodipine Besylate (Amlodipine Besylate 5 Mg Tablet) 5 mg PO DAILY [facility]; Protocol Last Admin: 09/11/23 09:09 Dose: 5 mg Documented By: YARA Artificial Tears (Artificial Tears 15 Ml Drops) 2 drop EYE-BOTH Q4H PRN PRN Reason: Dry Eyes Last Admin: 08/29/23 08:33 Dose: 2 drop Documented By: ESTEFANIA Dextrose (Dextrose 50 % 25 Gm/50 Ml Syringe) 25 gm IVPUSH Q15M PRN PRN Reason: per Hypoglycemia Standing Ord. Last Admin: 08/21/23 13:27 Dose: 25 gm Documented By: HAROON Glucose (Glucose Gel 15 Gm Gel..Gram.) 15 gm PO Q15M PRN PRN Reason: per Hypoglycemia Standing Ord. Last Admin: 08/19/23 16:40 Dose: 15 gm Documented By: AVRIL Heparin Sodium (Porcine) (Heparin Sodium,Porcine 5,000 Unit/Ml Vial) 5,000 unit SUBCUT Q8H [facility] Last Admin: 09/07/23 17:45 Dose: 5,000 unit Documented By: TAMICA Lidocaine (Lidocaine 4 % Patch Adh..Patch) 2 patch TRANSDERMA DAILY [facility]; Protocol Last Admin: 09/11/23 09:13 Dose: 2 patch Documented By: YARA Nystatin (Nystatin Powder 15 Gm Bottle) 1 appl TOPICAL BID [facility]; Protocol Last Admin: 09/11/23 09:10 Dose: 1 appl Documented By: YARA Ondansetron HCl (Ondansetron Hcl 4 Mg/2 Ml Vial) 4 mg IVPUSH Q6H PRN PRN Reason: Nausea and Vomiting Last Admin: 08/20/23 19:24 Dose: 4 mg Documented By: PRATEEK Oxycodone HCl (Oxycodone Hcl Immed Release 5 Mg Tablet) 5 mg PO Q4H PRN PRN Reason: mod-sev pain Prednisone (Prednisone 10 Mg Tablet) 10 mg PO DAILY [facility] Last Admin: 09/11/23 09:09 Dose: 10 mg Documented By: YARA Labs 09/11/23 04:36 09/11/23 04:36 Labs: Laboratory Results - last 24 hr 09/06/23 09/10/23 09/11/23 05:44 11:15 04:36 MCV 89.8 93.8 MCH 29.8 30.1 MCHC 33.2 32.1 RDW 14.9 15.0 Plt Count 253 260 MPV 10.9 10.9 Immature Gran % (Auto) 1.0 H 1.1 H Neut % (Auto) 75.3 H 49.6 Lymph % (Auto) 8.7 L 19.9 L [place] % (Auto) 14.0 H 26.7 H Eos % (Auto) 0.6 1.8 Baso % (Auto) 0.4 0.9 Lymph # (Auto) 0.6 L 1.6 [place] # (Auto) 1.0 2.1 H Eos # (Auto) 0.0 0.1 Baso # (Auto) 0.0 0.1 Abs Immat Gran (auto) 0.07 H 0.09 H Absolute Neuts (auto) 5.3 3.9 Absolute Nucleated RBC 0.000 0.000 Nucleated RBC % (auto) 0.0 0.0 Smear Tech's Comments VERIFIED Anion Gap 15 18 Estim Creat Clear Calc 28.0 20.1 Estimated GFR 25 17 Random Glucose 92 76 Calcium 8.4 8.3 L MAXX Titer TNP MAXX Titer 2 TNP MAXX Titer 3 TNP MAXX Pattern TNP MAXX Pattern 2 TNP MAXX Pattern 3 TNP Impressions Modified Barium Swallow 09/09/23 14:53 IMPRESSION: Subglottic aspiration with thin liquids. Laryngeal penetration was seen with nectar thick liquids Refer to the full speech therapy report for further clarification This procedure was performed by Willie Treviño PA-C, and supervised by Dr. Jara Brain MRI 09/10/23 21:16 IMPRESSION: 1. No vestibular schwannoma or retrocochlear lesion. 2. No mass lesion, acute infarction, or abnormal intracranial enhancement. Assessment and Plan (1) Pulmonary aspiration: Status: Acute (2) BRE (acute kidney injury): Status: Acute (3) Dysphasia: Status: Acute Plan d25 73yo F with sarcoidoisis + RA on [place] admitted to ICU due to septic shock from streptococcal pneumonia/bacteremia, intubated 08/21/23 for acute hypoxic respiratory failure ICU course complicated by demand NSTEMI and BRE requiring HD extubated 08/29 and stepped down to hospitalist service 08/31 aspirated and re-intubated 09/03/23 but extubated 09/04/23 stepped down to hospitalist service 09/07/23 BRE - HD started 08/21, Nephrology following, has tunneled RIJ catheter placed 09/08/23, HD + renal biopsy now on hold in hopes of documenting renal rovery - has MGUS; consulted Heme-Onc as per Nephro recommendation, sFLCR pending, doubt this is etiology of BRE in her AHRF due to aspiration AHRF and septic shock due to invasive pneumococcal disease - wean O2 as tolerated - completed antibiotics as follows, will discuss with ID: - cefazolin 08/19-08/22/23 - pip-terrie 08/18-08/19/23, 09/01-09/05/23 - metronidazole 08/19-08/23/23 - vancomycin 08/19/23 once and again on 09/03/23 hx AF/RVR acute HFrEF NSTEMI, likely demand - TTE 08/19/23: 1. Moderate to severe reduction LV ejection fraction with LVEF of 30-35% with impaired relaxation filling pattern 2. Mild mitral calcification and calcific aortic valve changes noted with cardiac valvular Dopplers within normal limits 3. No gross pericardial effusion - EKG, Cardiology consult pending, will need neurohormonal modulation + outpt f/u dysphagia - NDD3 diet + nectar-thick liquids, MBSS with subglottic aspiration with thin liquids L-sided hearing loss - ?from invasive pneumococcal disease. consulted Neuro, no MRI evidence of sarcoid involvement. did not get any aminoglycosides in ICU RA sarcoidosis - transitioned back to regular dose of prednisone 10 mg daily VTE ppx - hold UFH in case of renal biopsy dispo - eventual STR In my clinical judgment, the patient requires continued inpatient hospitalization for the following reasons: renal recovery Total time managing care of this patient today: 40 minutes. Quality Stroke Does the patient have a stroke diagnosis?: No VTE Prior VTE?: No VTE Risk Level:: Medical - moderate - high VTE Device Contraindication: N/A - Device Ordered VTE Drug Contraindication: N/A - Med Ordered
[2023-09-11] MEDS: traMADoL HCL 50 MG TABLET PO ×2 (11:07→17:42)
[2023-09-11] MEDS: carvediloL 3.125 MG TABLET PO ×2 (11:07→20:17)
--- NOTE | 2023-09-11 11:32 | MHC.CM.PN ---
SON/HCP (PRINTED AND PLACED IN PAPER CHART) [facility]DRA CALLED FOR UPDATE ON PLAN OF CARE. HE IS AWARE THAT [facility] ([facility]) IS OFFERING A BED AT DC. PLANS ARE FOR CARDIO, RENAL, AND ID INPUT. POSSIBLE DC BY THURSDAY, ALTHOUGH [facility] STATES THAT IT WOULD BE NEXT WEEK. FACILITY UPDATED
--- NOTE | 2023-09-11 11:33 | PM.CNCAR ---
History of Present Illness History of Present Illness Date of Service: 09/11/23 Requesting physician: [place] Consult reason: other (Cardiomyopathy, atrial fibrillation) Chief complaint: Septic Shock, Demand Ischemia Narrative: I was consulted on Tasha for noted LV systolic dysfunction paroxysmal atrial fibrillation. She is a pleasant 73-year-old woman new was admitted on August 18 with septic shock leading to acute kidney injury as well as myocardial injury which appears to be secondary to demand. Patient a very prolonged hospitalization course requiring hemodialysis currently still requiring hemodialysis. The creatinine has gradually improved. Echo was done which showed LVEF of 30-35%. Patient has multiple medical comorbidities including rheumatoid arthritis, monoclonal gammopathy, sarcoidosis,, long-term steroid use, presented with septic shock related to pneumococcal pneumonia. Multiple organ failure although patient is not doing better. Patient was in paroxysmal atrial fibrillation but has reverted back to sinus rhythm. Patient currently not having any cardiac complaints. She has lost her hearing. She currently denies any palpitations, shortness of breath, chest pain. Reviewed some of her vascular sales operations lead's note which shows diffuse and significant vascular disease requiring multiple stenting. She had significant troponin rise up to 7500 on day 2 of admission. Review of Systems Constitutional: Constitutional: Reports weakness Eyes: Eyes: Reports no additional eye complaints ENT: Reports hearing loss Cardiovascular: Cardiovascular: Reports no additional cardiovascular complaints Respiratory: Respiratory: Reports no additional respiratory complaints Gastrointestinal: Gastrointestinal: Reports no additional gastrointestinal complaints Genitourinary: Genitourinary: Reports no additional female genitourinary complaints Musculoskeletal: Musculoskeletal: Reports no additional musculoskeletal complaints Integumentary/Breasts: Skin/Breast: Reports system reviewed and no additional complaints, except as docu Neurologic: Reports system reviewed and no additional complaints, except as documented and Reports weakness PMFSH Past Medical History Medical History Streptococcal pneumonia Xanthelasma Pulmonary nodules Mild recurrent major depression Emphysema lung Hip bursitis Depression Essential hypertension Family History Family History Mother Leukemia Father Diabetes Heart disease Brother Heart disease Other No family history of cancer Surgical History Surgical History Xanthelasma of lower eyelid History of coronary angiogram Hx of left knee surgery H/O cataract removal with insertion of prosthetic lens H/O laminectomy Carpal tunnel syndrome on both sides Social History Social History Household Members: Spouse Housing: House Are you a primary daycare worker to a significant other at home: Yes (Son) Do you presently have visiting nurse or other home services: No Unable to assess alcohol history related to: Unknown Alcohol intake: current Alcohol intake frequency: holidays/special occasions only Alcohol type: wine Comment: bilateral wrist restraints--intubated Patient Tobacco Use Status: Former Tobacco user Tobacco use type: Cigarette e-Cigarette/Vaping Use: Never Used Second Hand Smoke Exposure: No Substance Use Type: Marijuana service: No Current occupational status: employed and retired Cognitive needs: No Hearing needs: No Vision needs: Yes (reading glasses) Meds Allergies Allergy/AdvReac Type Severity Reaction Status Date / Time [id number] Reductase Allergy Severe ANAPHYLACTI Verified 08/18/23 18:47 Inhibitor C [[id number] REDUCTASE INHIBITOR] Active Medications: Current Medications Acetaminophen (Acetaminophen 325 Mg Tablet) 650 mg PO Q4H PRN PRN Reason: Pain, Mild (Pain Scale 1-3) Artificial Tears (Artificial Tears 15 Ml Drops) 2 drop EYE-BOTH Q4H PRN PRN Reason: Dry Eyes Last Admin: 08/29/23 08:33 Dose: 2 drop Carvedilol (Carvedilol 3.125 Mg Tablet) 3.125 mg PO BID [facility]; Protocol Last Admin: 09/11/23 11:07 Dose: 3.125 mg Dextrose (Dextrose 50 % 25 Gm/50 Ml Syringe) 25 gm IVPUSH Q15M PRN PRN Reason: per Hypoglycemia Standing Ord. Last Admin: 08/21/23 13:27 Dose: 25 gm Glucose (Glucose Gel 15 Gm Gel..Gram.) 15 gm PO Q15M PRN PRN Reason: per Hypoglycemia Standing Ord. Last Admin: 08/19/23 16:40 Dose: 15 gm Heparin Sodium (Porcine) (Heparin Sodium,Porcine 5,000 Unit/Ml Vial) 5,000 unit SUBCUT Q8H [facility] Last Admin: 09/07/23 17:45 Dose: 5,000 unit Lidocaine (Lidocaine 4 % Patch Adh..Patch) 2 patch TRANSDERMA DAILY [facility]; Protocol Last Admin: 09/11/23 09:13 Dose: 2 patch Nystatin (Nystatin Powder 15 Gm Bottle) 1 appl TOPICAL BID [facility]; Protocol Last Admin: 09/11/23 09:10 Dose: 1 appl Ondansetron HCl (Ondansetron Hcl 4 Mg/2 Ml Vial) 4 mg IVPUSH Q6H PRN PRN Reason: Nausea and Vomiting Last Admin: 08/20/23 19:24 Dose: 4 mg Prednisone (Prednisone 10 Mg Tablet) 10 mg PO DAILY [facility] Last Admin: 09/11/23 09:09 Dose: 10 mg Tramadol HCl (Tramadol Hcl 50 Mg Tablet) 50 mg PO Q6H PRN PRN Reason: Pain severe Last Admin: 09/11/23 11:07 Dose: 50 mg Home Medications Medication Instructions Recorded Confirmed Last Taken Type clopidogrel 75 mg tablet (Plavix) 75 mg PO DAILY 06/28/20 08/19/23 Unknown History alirocumab 150 mg/mL subcutaneous 150 mg subcut Q2W 06/17/22 08/19/23 Unknown History pen injector (Praluent Pen) Physical Exam Vital Signs: Vital Signs: Last Vital Signs Temp 96.8 F 09/11/23 07:35 Pulse 99 09/11/23 07:35 Resp 14 09/11/23 07:35 BP 149/70 H 09/11/23 07:35 Pulse Ox 93 09/11/23 07:35 O2 Del Method Nasal Cannula 09/11/23 07:35 O2 Flow Rate 2 09/11/23 07:35 FiO2 25 09/04/23 17:00 BMI result Body Mass Index 30.8 Const: General: cooperative, comfortable, no acute distress, alert and awake Nutritional Appearance: overweight Orientation/consciousness: patient oriented x3 HEENT: Head: Yes normocephalic and Yes atraumatic Neck: Neck: Yes trachea midline, Yes supple and Yes no JVD Resp: Effort & Inspection: normal respiratory effort Auscultation: clear to auscultation bilaterally Cardio: Jugular venous distension: no JVD Rate: regular rate Rhythm: regular rhythm Heart sounds: S1 normal heart sound present, S2 normal heart sound present, no click, no gallops, no murmurs and no rubs GI: Auscultation: normal bowel sounds Skin: General skin exam: no rashes or lesions noted Neuro: General: patient oriented x3 and no focal motor deficits Extrem: General: Yes no clubbing, cyanosis or edema Objective Labs and Meds 09/11/23 04:36 09/11/23 04:36 Lab results: Laboratory Results - last 24 hr 09/10/23 09/11/23 11:15 04:36 WBC 7.0 7.9 RBC 2.85 L 2.89 L Hgb 8.5 L 8.7 L Hct 25.6 L D 27.1 L MCV 89.8 93.8 MCH 29.8 30.1 MCHC 33.2 32.1 RDW 14.9 15.0 Plt Count 253 260 MPV 10.9 10.9 Immature Gran % (Auto) 1.0 H 1.1 H Neut % (Auto) 75.3 H 49.6 Lymph % (Auto) 8.7 L 19.9 L [place] % (Auto) 14.0 H 26.7 H Eos % (Auto) 0.6 1.8 Baso % (Auto) 0.4 0.9 Lymph # (Auto) 0.6 L 1.6 [place] # (Auto) 1.0 2.1 H Eos # (Auto) 0.0 0.1 Baso # (Auto) 0.0 0.1 Abs Immat Gran (auto) 0.07 H 0.09 H Absolute Neuts (auto) 5.3 3.9 Absolute Nucleated RBC 0.000 0.000 Nucleated RBC % (auto) 0.0 0.0 Smear Tech's Comments VERIFIED Sodium 133 L 132 L Potassium 3.5 3.6 Chloride 96 96 Carbon Dioxide 26 22 Anion Gap 15 18 BUN 32 H 42 H Creatinine 1.98 H 2.76 H Estim Creat Clear Calc 28.0 20.1 Estimated GFR 25 17 Random Glucose 92 76 Calcium 8.4 8.3 L Most recent EKG shows sinus tachycardia otherwise normal EKG improved from atrial fibrillation and improved ST depression. Imaging Radiologist's impression: Impressions Modified Barium Swallow 09/09/23 14:53 IMPRESSION: Subglottic aspiration with thin liquids. Laryngeal penetration was seen with nectar thick liquids Refer to the full speech therapy report for further clarification This procedure was performed by Willie Treviño PA-C, and supervised by Dr. Jara Brain MRI 09/10/23 21:16 IMPRESSION: 1. No vestibular schwannoma or retrocochlear lesion. 2. No mass lesion, acute infarction, or abnormal intracranial enhancement. Assessment and Plan (1) Left ventricular systolic dysfunction (LVSD): Status: Acute Patient noted to have significant LV systolic dysfunction when she present with acute septic shock. Possibilities include ischemic cardiomyopathy given her diffuse vascular disease and high likelihood of underlying coronary artery disease with underlying stable coronary disease, sepsis induced cardiomyopathy or stress-induced cardiomyopathy. Clinically currently having no symptoms or signs of congestive heart failure. Will require ischemic workup as an outpatient once stable given her elevated troponins in the setting of septic shock. I would start on neurohormonal modulation with carvedilol 3.125 mg b.i.d. and maximize as tolerated. Discussed with Nephrology about starting angiotensin receptor chelsie if she remains on dialysis to also help with neurohormonal modulation. If this needs to be held given her improving renal function and given a chance renal recovery this can be done. Follow-up with her sales operations lead as outpatient. (2) Paroxysmal atrial fibrillation: Status: Acute Atrial fibrillation also induced by severe systemic illness. However she is at high risk for recurrent atrial fibrillation given her multiple risk factors. Carvedilol therapy as above. Avoidance of stimulants. Would consider oral anticoagulation therapy with Eliquis once stable. Will sign of the case. Thank you for allowing me to partake in her care Procedures Date of Service Date of Service: 09/11/23
[2023-09-11 11:50] VITALS: BP 149/70; PULSE 99; O2SAT 93
[2023-09-11] MEDS: buPROPion HCl XL 150 MG TAB.ER.24H PO (13:22)
--- NOTE | 2023-09-11 13:53 | MHC.SL.SWA ---
Speech Pathologist Impression: Risk of aspiration, oropharyngeal dysphagia Risk of Aspiration Due to: Lethargy History of Pneumonia Hx of Recent Extubation Dysphasia Diet Status: No changes at this time Liquid Consistency and Strategies for Safe Swallow: Liquid Intake Recommendation: [place] Liquid Intake Strategies: Small Sips No Straws Double Swallow Solid Food Consistency: Dietary Recommendations: Chopped/Advanced (NDD3) Additional Modifications to Solid Foods: Recommend CONTINUE on CHOPPED/ADVANCED (NDD3) diet and NECTAR THICK liquids. Speech therapy to continue with trials of thin liquid by teaspoon or cup, continued assessment for potential upgrade to thin liquids if appropriate given pt?s medical status. Ad interim, pt is recommended a [place] Water Protocol for comfort and to promote hydration. Per protocol, pt to be permitted water between meals with strict aspiration precautions and nursing or RETAIL BANKER supervision. Oral care to be provided after meals/before presentation of water. Water to be given by teaspoon or individual cup sip, with cues for volitional throat clear after sip. Following strategies are recommended to maximize feeding safety: -Liquids via teaspoon or individual cup sips -Avoid the use of straws -Moisten foods with sauces and gravies -Avoid sticky or hard foods; mixed consistencies (i.e. thin broth soup with solid ingredients) -Small bites, one bite at a time -Ensure oral cavity is clear before giving next bite -Follow bite with dry swallow then sip of liquid -Maintain 90 degree position during PO intake and for at least 30-45 minutes afterwards Oral Medication Intake: Crushed with Puree Please contact the pharmacy regarding appropriate crushable or liquid drug formulations that are available whenever modified delivery is recommended. Compensatory Strategies and Precautions to be Taken for Safe Swallow: Sitting Upright (90 deg) Double Swallow No Straw Liquids from Cup Liquids from Spoon Small Bites and Sips Alternate Liquids/Solids Rate of Ingestion Change Avoid Specific Foods Supervision While Eating and Drinking for Safe Swallow: Total Supervision (1:1) Foods to Avoid: Avoid sticky or hard foods; mixed consistencies (i.e. thin broth soup with solid ingredients) Swallowing Recommended Treatments: Compens. Strategy Educat. Recommendation for Speech: Inpatient Speech Therapy Speech Therapy through Rehab Facility Modified Barium Swallow Study - Outpatient Frequency/Duration: M-F during inpatient stay Date Range for Service Req: Recommend continuation of speech therapy for the treatment of dysphagia, during hospitalization and post-discharge, with repeat-MBSS when appropriate. Timeline to reassess: 3 months Unit Manager [employer] Clinican/Clinical Fellow: No Supervisory Statement: I have reviewed and agree with the student/clinical fellow's documentation: N/A Speech Language Pathologist: Pauline Avila M.A., CCC-RETAIL BANKER
[2023-09-11 15:18] VITALS: BP 140/67; PULSE 99; RESP 18; TEMP 36.7; O2SAT 94
--- NOTE | 2023-09-11 15:30 | W.PM.IDCN ---
History of Present Illness Data of Consult Service Date: 09/10/23 Requesting physician: Guido Park Primary Care Provider: Miguelina Flor MD HPI Reason for consult: strep pneumonia bacteremia She presents with confusion and difficulty word finding on 08/18 to ER. She was alert later and then had some shortness of breath and found to have RENU infiltrare. 10/23 blood cultures admission showed pansensitive strep pneumonia. She had hypotension and transferred to ICU and received Vancomycin ,Cefepime and Flagyl as documented. She has RA and MGUS sarcoid and is on MTX and steroids. She was intubated 09/03-09/04. She continued on antibiotics and on 09/07 developed hearing loss and when I see her she has no hearing in right ear and estimates 50% in left ear. She had reportedly normal hearing before according to family. Review of Systems Review of Systems: Yes all other systems are reviewed and are negative ENT: Reports hearing loss PMFSH Past Medical History Medical History (Updated 09/11/23 @ 15:38 by Kamille Degroot MD) Hearing loss Blood poisoning due to Streptococcus pneumoniae bacteria Streptococcal pneumonia Xanthelasma Pulmonary nodules Mild recurrent major depression Emphysema lung Hip bursitis Depression Essential hypertension Family History Family History Mother Leukemia Father Diabetes Heart disease Brother Heart disease Other No family history of cancer Family history: reviewed and not pertinent Surgical History Surgical History Xanthelasma of lower eyelid History of coronary angiogram Hx of left knee surgery H/O cataract removal with insertion of prosthetic lens H/O laminectomy Carpal tunnel syndrome on both sides Social History Social History Household Members: Spouse Housing: House Are you a primary intensive care unit nurse to a significant other at home: Yes (Son) Do you presently have visiting nurse or other home services: No Unable to assess alcohol history related to: Unknown Alcohol intake: current Alcohol intake frequency: holidays/special occasions only Alcohol type: wine Comment: bilateral wrist restraints--intubated Patient Tobacco Use Status: Former Tobacco user Tobacco use type: Cigarette e-Cigarette/Vaping Use: Never Used Second Hand Smoke Exposure: No Substance Use Type: Marijuana service: No Current occupational status: employed and retired Cognitive needs: No Hearing needs: No Vision needs: Yes (reading glasses) Meds Allergies Allergy/AdvReac Type Severity Reaction Status Date / Time [id number]-MbG Reductase Allergy Severe ANAPHYLACTI Verified 08/18/23 18:47 Inhibitor C [[id number] REDUCTASE INHIBITOR] Active Medications: Current Medications Acetaminophen (Acetaminophen 325 Mg Tablet) 650 mg PO Q4H PRN PRN Reason: Pain, Mild (Pain Scale 1-3) Artificial Tears (Artificial Tears 15 Ml Drops) 2 drop EYE-BOTH Q4H PRN PRN Reason: Dry Eyes Last Admin: 08/29/23 08:33 Dose: 2 drop Bupropion HCl (Bupropion Hcl Xl 150 Mg Tab.Er.24h) 150 mg PO DAILY [facility] Last Admin: 09/11/23 13:22 Dose: 150 mg Carvedilol (Carvedilol 3.125 Mg Tablet) 3.125 mg PO BID [facility]; Protocol Last Admin: 09/11/23 11:07 Dose: 3.125 mg Dextrose (Dextrose 50 % 25 Gm/50 Ml Syringe) 25 gm IVPUSH Q15M PRN PRN Reason: per Hypoglycemia Standing Ord. Last Admin: 08/21/23 13:27 Dose: 25 gm Glucose (Glucose Gel 15 Gm Gel..Gram.) 15 gm PO Q15M PRN PRN Reason: per Hypoglycemia Standing Ord. Last Admin: 08/19/23 16:40 Dose: 15 gm Heparin Sodium (Porcine) (Heparin Sodium,Porcine 5,000 Unit/Ml Vial) 5,000 unit SUBCUT Q8H [facility] Last Admin: 09/07/23 17:45 Dose: 5,000 unit Lidocaine (Lidocaine 4 % Patch Adh..Patch) 2 patch TRANSDERMA DAILY [facility]; Protocol Last Admin: 09/11/23 09:13 Dose: 2 patch Nystatin (Nystatin Powder 15 Gm Bottle) 1 appl TOPICAL BID [facility]; Protocol Last Admin: 09/11/23 09:10 Dose: 1 appl Ondansetron HCl (Ondansetron Hcl 4 Mg/2 Ml Vial) 4 mg IVPUSH Q6H PRN PRN Reason: Nausea and Vomiting Last Admin: 08/20/23 19:24 Dose: 4 mg Prednisone (Prednisone 10 Mg Tablet) 10 mg PO DAILY [facility] Last Admin: 09/11/23 09:09 Dose: 10 mg Tramadol HCl (Tramadol Hcl 50 Mg Tablet) 50 mg PO Q6H PRN PRN Reason: Pain severe Last Admin: 09/11/23 11:07 Dose: 50 mg Home Medications Medication Instructions Recorded Confirmed Last Taken Type clopidogrel 75 mg tablet (Plavix) 75 mg PO DAILY 06/28/20 08/19/23 Unknown History alirocumab 150 mg/mL subcutaneous 150 mg subcut Q2W 06/17/22 08/19/23 Unknown History pen injector (Praluent Pen) Physical Exam Vital Signs: Vital Signs: Last Vital Signs Temp 98.0 F 09/11/23 15:18 Pulse 99 09/11/23 15:18 Resp 18 09/11/23 15:18 BP 140/67 H 09/11/23 15:18 Pulse Ox 94 09/11/23 15:18 O2 Del Method Room Air 09/11/23 15:18 O2 Flow Rate 2 09/11/23 07:35 FiO2 25 09/04/23 17:00 BMI result Body Mass Index 30.8 Const: General: cooperative HEENT: Head: Yes normal to inspection Ears: hearing grossly impaired (none right ,50% left) Face and sinus: Yes normal facial exam Mouth: Normal oral and palatal mucosa present Teeth and gingiva: dentition normal Eyes: General: appearance normal, both eyes and all related structures Pupils: Equal, round and reactive pupils present Resp: Effort & Inspection: normal respiratory effort Cardio: Rate: regular rate Rhythm: regular rhythm GI: Palpation (GI): Soft to palpation and nontender : General: Yes no CVA tenderness Back/Spine/Pelvis: Back: no CVA tenderness Skin: General skin exam: no rashes or lesions noted Neuro: General: moves all extremities Cranial nerves: Yes Equal, round and reactive pupils present Extrem: General: Yes normal to inspection Psych: Appearance: grossly normal Results Labs 09/11/23 04:36 09/11/23 04:36 Labs: Short CBC 09/11/23 Range/Units 04:36 WBC 7.9 (4.8-10.8) X10*3/uL Hgb 8.7 L (12.0-16.0) g/dl Hct 27.1 L (37.0-47.0) % Plt Count 260 (160-400) X10*3/uL BMP 09/11/23 04:36 Sodium 132 L Potassium 3.6 Chloride 96 Carbon Dioxide 22 BUN 42 H Creatinine 2.76 H Calcium 8.3 L Microbiology Microbiology Results: Microbiology 09/03/23 21:22 Blood - Venous Blood Culture - Final No growth after 5 days. 09/03/23 21:22 Blood - Venous Blood Culture - Final No growth after 5 days. 09/03/23 22:53 Sputum - Suctioned Gram Stain - Final 09/03/23 22:53 Sputum - Suctioned Sputum Culture - Final Laura albicans 09/01/23 06:30 Blood - Venous Blood Culture - Final No growth after 5 days. 09/01/23 06:30 Blood - Venous Blood Culture - Final No growth after 5 days. 08/26/23 13:39 Blood - Venous Blood Culture - Final No growth after 5 days. 08/26/23 13:39 Blood - Venous Blood Culture - Final No growth after 5 days. 08/18/23 21:45 Blood - Venous Blood Culture - Final Streptococcus pneumoniae 08/18/23 20:17 Blood - Venous Blood Culture - Final Streptococcus pneumoniae Assessment and Plan (1) Blood poisoning due to Streptococcus pneumoniae bacteria: Status: Acute (2) Hearing loss: Status: Acute (3) Acute hypoxic respiratory failure: Status: Acute (4) Rheumatoid arthritis involving multiple joints: Status: Acute (5) Septic shock due to streptococcal infection: Status: Acute Plan I believe her confusion and difficulty word finding early on is associated with strep pneumonia meningitis when paired with deafness likely. Up to 20% individuals have deafness as sequelae. Brain MRI with contrast doesnt show brain abscess or collection Risk factors include RA and MGUS. I understand LP not desired by family at this point and not sure it would help except to check diagnosis but results may be negative now and there is no clinical signs of increased intracranial pressure, Even now would still give either 1-2 g Ceftriaxone IV bid or 12-24mu Penicillin IV every 24 hours for 14 days midline or PICC. Consider Dexamethasone 10 mg po qid for four days as some studies indicate decrease in morbidity and mortality. There is no contact chemoprophylaxis or isolation required for strep pneumonia meningitis. She should receive new conjugate pneumococcal disease on discharge or after at pharmacy if not here. I am not sure duration hearing disability
--- NOTE | 2023-09-11 15:41 | P.PNNP_ITS ---
Subjective Subjective Date of Service: 09/11/23 Interval history: ongoing L>R sided hearing loss, communication via amplification device + writing no cough c/o back/hip pain improving urine output per nursing- not charted - they will chart going forward Physical Exam 2 Vital Signs: Vital Signs: Last Vital Signs Temp 98.0 F 09/11/23 15:18 Pulse 99 09/11/23 15:18 Resp 18 09/11/23 15:18 BP 140/67 H 09/11/23 15:18 Pulse Ox 94 09/11/23 15:18 O2 Del Method Room Air 09/11/23 15:18 O2 Flow Rate 2 09/11/23 07:35 FiO2 25 09/04/23 17:00 BMI result Body Mass Index 30.8 cvs: s1s2 Rs; cta abd; soft no edema Objective Data Labs 09/11/23 04:36 09/11/23 04:36 Labs: Laboratory Results - last 24 hr 09/11/23 04:36 WBC 7.9 RBC 2.89 L Hgb 8.7 L Hct 27.1 L MCV 93.8 MCH 30.1 MCHC 32.1 RDW 15.0 Plt Count 260 MPV 10.9 Immature Gran % (Auto) 1.1 H Neut % (Auto) 49.6 Lymph % (Auto) 19.9 L [place] % (Auto) 26.7 H Eos % (Auto) 1.8 Baso % (Auto) 0.9 Lymph # (Auto) 1.6 [place] # (Auto) 2.1 H Eos # (Auto) 0.1 Baso # (Auto) 0.1 Abs Immat Gran (auto) 0.09 H Absolute Neuts (auto) 3.9 Absolute Nucleated RBC 0.000 Nucleated RBC % (auto) 0.0 Smear Tech's Comments VERIFIED Sodium 132 L Potassium 3.6 Chloride 96 Carbon Dioxide 22 Anion Gap 18 BUN 42 H Creatinine 2.76 H Estim Creat Clear Calc 20.1 Estimated GFR 17 Random Glucose 76 Calcium 8.3 L Microbiology Microbiology Results: Microbiology 09/03/23 21:22 Blood - Venous Blood Culture - Final No growth after 5 days. 09/03/23 21:22 Blood - Venous Blood Culture - Final No growth after 5 days. 09/03/23 22:53 Sputum - Suctioned Gram Stain - Final 09/03/23 22:53 Sputum - Suctioned Sputum Culture - Final Laura albicans 09/01/23 06:30 Blood - Venous Blood Culture - Final No growth after 5 days. 09/01/23 06:30 Blood - Venous Blood Culture - Final No growth after 5 days. 08/26/23 13:39 Blood - Venous Blood Culture - Final No growth after 5 days. 08/26/23 13:39 Blood - Venous Blood Culture - Final No growth after 5 days. 08/18/23 21:45 Blood - Venous Blood Culture - Final Streptococcus pneumoniae 08/18/23 20:17 Blood - Venous Blood Culture - Final Streptococcus pneumoniae Procedures Date of Service Date of Service: 09/11/23 Assessment & Plan Assessment and plan (1) BRE (acute kidney injury): Status: Acute Plan DDX includes ATN, but has underlying MGUS, low complements so ddx includes myeloma kidney, cryoglobulinemia. Doubt lupus nephritis or mixed connective tissue disease but possible given RA; postinfectious GN possible. Plan HD TTS - last hd 09/10/23 - hold hd while monitoring uop and cr for recovery -as improving uop Has a IJ Perm cath Await cryoglobulins, ds DNA- negative ( MAXX : Other serologies negative ) Needs a renal biopsy given: No BRE recovery +ve immunofixation with BRE / Low compliments - ? periinfectious GN - I will discuss with medical team and IR - likely next thursday Suggest Hematology eval for +ve Immunofixation Out pt Hd spot being arranged Need to know the disposition of this patient - if going to rehab- Which Rehab (2) MGUS (monoclonal gammopathy of unknown significance): Status: Acute (3) Metabolic acidosis: Status: Acute Assessment and Plan: Due to BRE This may necessitate dialysis tomorrow; if bicarb lower will need HD tomorrow am Time Spent With Patient Time: Total time managing care of this patient today ____ minutes. Progress Note: Quality Stroke Does the patient have a stroke diagnosis?: No
[2023-09-11] MEDS: cefTRIAXone sodium 2 GM in 0.9 % Sodium Chloride 50 ML IV (16:51)
[2023-09-11 18:54] VITALS: BP 152/70; PULSE 97; RESP 16; TEMP 36.5; O2SAT 96
[2023-09-12 03:09] VITALS: BP 144/68; PULSE 96; RESP 18; TEMP 35.9; O2SAT 98
[2023-09-12] MEDS: traMADoL HCL 50 MG TABLET PO ×3 (03:25→20:29)
[2023-09-12] MEDS: cefTRIAXone sodium 2 GM in 0.9 % Sodium Chloride 50 ML IV ×2 (03:26→15:30)
[2023-09-12 05:46] LABS: Basophils Absolute Auto 0.1 X10*3/uL (0.0-0.2); Eosinophils Absolute Auto 0.3 X10*3/uL (0.0-0.4); Eosinophils Percent Auto 3.1 % (0-4); Hematocrit 27.4 % (37.0-47.0); Imm Gran Abs Auto 0.08 X10*3/uL (0.00-0.03); Lymphocytes Absolute Auto 1.3 X10*3/uL (1.2-4.9); Lymphocytes Percent Auto 15.6 % (20-40); MANUAL DIFF FLAG SCAN; Mean Corpuscular HGB Conc 32.8 g/dl (31.0-35.0); Mean Corpuscular Volume 94.5 fL (80.0-98.0); Mean Platelet Volume 11.1 fL (9.4-12.3); Monocytes Percent Auto 24.9 % (2-11); Neutrophils Absolute Auto 4.4 x10*3/uL (2.0-8.3); Neutrophils Percent Auto 54.4 % (45-73); Platelet Count 283 X10*3/uL (160-400); Red Cell Distribution Width 15.2 % (11.0-16.0); SCAN SMEAR FLAG 1; White Blood Count 8.1 X10*3/uL (4.8-10.8)
[2023-09-12 06:01] LABS: Anion Gap 17 (12-20); Blood Urea Nitrogen 60 mg/dL (9-16); Calcium 8.7 mg/dL (8.4-10.2); Carbon Dioxide 23 mmol/L (22-29); Chloride 97 mmol/L (96-108); Creatinine Clr Calc Pharmacy 16.2; Estimated Glomerular Filt Rate 13; Glucose Random 89 mg/dL (60-115); Potassium 3.8 mmol/L (3.3-5.1); Sodium 133 mmol/L (135-145)
[2023-09-12 06:07] LABS: SLIDE REVIEW VERIFIED
[2023-09-12 07:22] VITALS: BP 145/89; PULSE 90; RESP 18; TEMP 36.4; O2SAT 96
[2023-09-12] MEDS: carvediloL 6.25 MG TABLET PO ×2 (08:35→20:13)
[2023-09-12] MEDS: predniSONE 10 MG TABLET PO (08:35)
[2023-09-12] MEDS: Lidocaine 4 % Patch ADH..PATCH 2 PATCH TRANSDERMA (08:35)
[2023-09-12] MEDS: buPROPion HCl XL 150 MG TAB.ER.24H PO (08:35)
[2023-09-12] MEDS: Nystatin Powder 15 GM BOTTLE 1 APPL TOPICAL ×2 (08:36→20:13)
--- NOTE | 2023-09-12 08:51 | HO.PM.IMPN ---
Subjective Subjective Date of Service: 09/12/23 Interval History: R hearing loss worse than L hearing loss no fever SCr increasing urinating well though not documented grateful to have survived Communication via whiteboard given hearing loss Review of Systems Review of Systems: Yes all other systems are reviewed and are negative Physical Exam Vital Signs: Vital Signs: Last Vital Signs Temp 97.6 F 09/12/23 07:22 Pulse 90 09/12/23 07:22 Resp 18 09/12/23 07:22 BP 145/89 H 09/12/23 07:22 Pulse Ox 96 09/12/23 07:22 O2 Del Method Room Air 09/12/23 07:22 O2 Flow Rate 2 09/11/23 07:35 FiO2 25 09/04/23 17:00 BMI result Body Mass Index 30.8 Gen: in no acute distress HEENT: sclera anicteric, moist mucus membranes, Sanchez unable to hear at all, Rinne with bilateral SNHL Neck: supple, RIJ HD catheter Lungs: diminished Heart: regular rate and rhythm, no murmurs Abd: soft, non-tender, non-distended Ext: no edema Skin: warm/well-perfused Neuro: alert and oriented x3, no focal findings except hearing loss as above Psych: appropriate affect Objective Data Active Medications Acetaminophen (Acetaminophen 325 Mg Tablet) 650 mg PO Q4H PRN PRN Reason: Pain, Mild (Pain Scale 1-3) Artificial Tears (Artificial Tears 15 Ml Drops) 2 drop EYE-BOTH Q4H PRN PRN Reason: Dry Eyes Last Admin: 08/29/23 08:33 Dose: 2 drop Documented By: ESTEFANIA Bupropion HCl (Bupropion Hcl Xl 150 Mg Tab.Er.24h) 150 mg PO DAILY [facility] Last Admin: 09/12/23 08:35 Dose: 150 mg Documented By: ALEJANDRA Carvedilol (Carvedilol 6.25 Mg Tablet) 6.25 mg PO BID [facility]; Protocol Last Admin: 09/12/23 08:35 Dose: 6.25 mg Documented By: ALEJANDRA Dextrose (Dextrose 50 % 25 Gm/50 Ml Syringe) 25 gm IVPUSH Q15M PRN PRN Reason: per Hypoglycemia Standing Ord. Last Admin: 08/21/23 13:27 Dose: 25 gm Documented By: HAROON Glucose (Glucose Gel 15 Gm Gel..Gram.) 15 gm PO Q15M PRN PRN Reason: per Hypoglycemia Standing Ord. Last Admin: 08/19/23 16:40 Dose: 15 gm Documented By: AVRIL Heparin Sodium (Porcine) (Heparin Sodium,Porcine 5,000 Unit/Ml Vial) 5,000 unit SUBCUT Q8H [facility] Last Admin: 09/07/23 17:45 Dose: 5,000 unit Documented By: TAMICA Ceftriaxone Sodium 2 gm/ (Sodium Chloride) 50 mls @ 100 mls/hr IV Q12H [facility] Last Infusion: 09/12/23 04:00 Dose: Infused Documented By: ALEXIA Lidocaine (Lidocaine 4 % Patch Adh..Patch) 2 patch TRANSDERMA DAILY [facility]; Protocol Last Admin: 09/12/23 08:35 Dose: 2 patch Documented By: ALEJANDRA Nystatin (Nystatin Powder 15 Gm Bottle) 1 appl TOPICAL BID [facility]; Protocol Last Admin: 09/12/23 08:36 Dose: 1 appl Documented By: ALEJANDRA Ondansetron HCl (Ondansetron Hcl 4 Mg/2 Ml Vial) 4 mg IVPUSH Q6H PRN PRN Reason: Nausea and Vomiting Last Admin: 08/20/23 19:24 Dose: 4 mg Documented By: PRATEEK Prednisone (Prednisone 10 Mg Tablet) 10 mg PO DAILY [facility] Last Admin: 09/12/23 08:35 Dose: 10 mg Documented By: ALEJANDRA Tramadol HCl (Tramadol Hcl 50 Mg Tablet) 50 mg PO Q6H PRN PRN Reason: Pain severe Last Admin: 09/12/23 03:25 Dose: 50 mg Documented By: ALEXIA Labs 09/12/23 05:18 09/12/23 05:18 Labs: Laboratory Results - last 24 hr 09/06/23 09/12/23 05:44 05:18 MCV 94.5 MCH 31.0 MCHC 32.8 RDW 15.2 Plt Count 283 MPV 11.1 Immature Gran % (Auto) 1.0 H Neut % (Auto) 54.4 Lymph % (Auto) 15.6 L [place] % (Auto) 24.9 H Eos % (Auto) 3.1 Baso % (Auto) 1.0 Lymph # (Auto) 1.3 [place] # (Auto) 2.0 H Eos # (Auto) 0.3 Baso # (Auto) 0.1 Abs Immat Gran (auto) 0.08 H Absolute Neuts (auto) 4.4 Absolute Nucleated RBC 0.000 Nucleated RBC % (auto) 0.0 Smear Tech's Comments VERIFIED Anion Gap 17 Estim Creat Clear Calc 16.2 Estimated GFR 13 Random Glucose 89 Calcium 8.7 Cryoglobulin Comment Cryoglobulin Cryocrit TNP Assessment and Plan (1) Pulmonary aspiration: Status: Acute (2) BRE (acute kidney injury): Status: Acute (3) Dysphasia: Status: Acute Plan d26 73yo F with sarcoidoisis + RA on Orencia admitted to ICU due to septic shock from streptococcal pneumonia/bacteremia, intubated 08/21/23 for acute hypoxic respiratory failure ICU course complicated by demand NSTEMI and BRE requiring HD extubated 08/29 and stepped down to hospitalist service 08/31 aspirated and re-intubated 09/03/23 but extubated 09/04/23 stepped down to hospitalist service 09/07/23 BRE - HD started 08/21, Nephrology following, has tunneled RIJ catheter placed 09/08/23, HD + renal biopsy now on hold in hopes of documenting renal recovery but SCr is increasing; discuss with Nephrology whether she should be back on HD and whether she needs renal biopsyt or not - has MGUS; consulted Heme-Onc as per Nephro recommendation, sFLCR pending, doubt this is etiology of BRE in her AHRF due to aspiration AHRF and 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 This may need to be dosed for HD pending renal input. The patient did get stress-dose HCT in the ICU, so she recommends against dexamethasone at this time. hx AF/RVR acute HFrEF NSTEMI, likely demand - TTE 08/19/23: 1. Moderate to severe reduction LV ejection fraction with LVEF of 30-35% with impaired relaxation filling pattern 2. Mild mitral calcification and calcific aortic valve changes noted with cardiac valvular Dopplers within normal limits 3. No gross pericardial effusion - EKG, Cardiology consulted, switched amlodipine to carvedilol [increase dose today]. Eventually to consider valsartan pending resolution of renal issues. Will need outpt ischemic workup. Will also need to be on apixaban once definitely not needing a renal biopsy. dysphagia - NDD3 diet + nectar-thick liquids, MBSS showed subglottic aspiration with thin liquids L-sided hearing loss - ?from invasive pneumococcal disease. consulted Neuro, no MRI evidence of sarcoid involvement. did not get any aminoglycosides in ICU. got high-dose steroids in ICU for adrenal insufficiency of septic shock. ABX as above. RA sarcoidosis - transitioned back to regular dose of prednisone 10 mg daily VTE ppx - hold UFH in case of renal biopsy dispo - STR recommended but pt declines. She cites having enough family support and equipment at home. In my clinical judgment, the patient requires continued inpatient hospitalization for the following reasons: renal recovery Total time managing care of this patient today: 50 minutes. Quality Stroke Does the patient have a stroke diagnosis?: No VTE Prior VTE?: No VTE Risk Level:: Medical - moderate - high VTE Device Contraindication: N/A - Device Ordered VTE Drug Contraindication: N/A - Med Ordered
--- NOTE | 2023-09-12 15:08 | P.PNNP_ITS ---
Subjective Subjective Date of Service: 09/12/23 Interval history: R hearing loss worse than L hearing loss no fever SCr increasing urinating well though not documented grateful to have survived Communication via whiteboard given hearing loss Physical Exam 2 Vital Signs: Vital Signs: Last Vital Signs Temp 97.6 F 09/12/23 07:22 Pulse 90 09/12/23 07:22 Resp 18 09/12/23 07:22 BP 145/89 H 09/12/23 07:22 Pulse Ox 96 09/12/23 07:22 O2 Del Method Room Air 09/12/23 07:22 O2 Flow Rate 2 09/11/23 07:35 FiO2 25 09/04/23 17:00 BMI result Body Mass Index 30.8 cvs: s1s2 Rs; cta abd; soft no edema Objective Data Labs 09/12/23 05:18 09/12/23 05:18 Labs: Laboratory Results - last 24 hr 09/06/23 09/12/23 05:44 05:18 WBC 8.1 RBC 2.90 L Hgb 9.0 L Hct 27.4 L MCV 94.5 MCH 31.0 MCHC 32.8 RDW 15.2 Plt Count 283 MPV 11.1 Immature Gran % (Auto) 1.0 H Neut % (Auto) 54.4 Lymph % (Auto) 15.6 L [place] % (Auto) 24.9 H Eos % (Auto) 3.1 Baso % (Auto) 1.0 Lymph # (Auto) 1.3 [place] # (Auto) 2.0 H Eos # (Auto) 0.3 Baso # (Auto) 0.1 Abs Immat Gran (auto) 0.08 H Absolute Neuts (auto) 4.4 Absolute Nucleated RBC 0.000 Nucleated RBC % (auto) 0.0 Smear Tech's Comments VERIFIED Sodium 133 L Potassium 3.8 Chloride 97 Carbon Dioxide 23 Anion Gap 17 BUN 60 H Creatinine 3.41 H Estim Creat Clear Calc 16.2 Estimated GFR 13 Random Glucose 89 Calcium 8.7 Cryoglobulin Comment Cryoglobulin Cryocrit TNP Microbiology Microbiology Results: Microbiology 09/03/23 21:22 Blood - Venous Blood Culture - Final No growth after 5 days. 09/03/23 21:22 Blood - Venous Blood Culture - Final No growth after 5 days. 09/03/23 22:53 Sputum - Suctioned Gram Stain - Final 09/03/23 22:53 Sputum - Suctioned Sputum Culture - Final Laura albicans 09/01/23 06:30 Blood - Venous Blood Culture - Final No growth after 5 days. 09/01/23 06:30 Blood - Venous Blood Culture - Final No growth after 5 days. 08/26/23 13:39 Blood - Venous Blood Culture - Final No growth after 5 days. 08/26/23 13:39 Blood - Venous Blood Culture - Final No growth after 5 days. 08/18/23 21:45 Blood - Venous Blood Culture - Final Streptococcus pneumoniae 08/18/23 20:17 Blood - Venous Blood Culture - Final Streptococcus pneumoniae Procedures Date of Service Date of Service: 09/12/23 Assessment & Plan Assessment and plan (1) BRE (acute kidney injury): Status: Acute Plan DDX includes ATN, but has underlying MGUS, low complements so ddx includes myeloma kidney, cryoglobulinemia. Doubt lupus nephritis or mixed connective tissue disease but possible given RA; postinfectious GN possible. Plan HD TTS - last hd 09/10/23 - hold hd while monitoring uop and cr for recovery -as improving uop cr 2.76--> 3.41 today Has a IJ Perm cath Await cryoglobulins, ds DNA- negative ( MAXX : Other serologies negative ) Needs a renal biopsy given: No BRE recovery +ve immunofixation with BRE / Low compliments - ? periinfectious GN - I will discuss with medical team and IR - likely next thursday Suggest Hematology eval for +ve Immunofixation Out pt Hd spot being arranged Need to know the disposition of this patient - if going to rehab- Which Rehab (2) MGUS (monoclonal gammopathy of unknown significance): Status: Acute (3) Metabolic acidosis: Status: Acute Assessment and Plan: Due to BRE This may necessitate dialysis tomorrow; if bicarb lower will need HD tomorrow am Time Spent With Patient Time: Total time managing care of this patient today ____ minutes. Progress Note: Quality Stroke Does the patient have a stroke diagnosis?: No
[2023-09-12 15:24] VITALS: BP 115/52; PULSE 94; RESP 20; TEMP 36.6; O2SAT 95
[2023-09-12 19:50] VITALS: BP 178/85; PULSE 93; RESP 16; TEMP 36.8; O2SAT 97
[2023-09-13 00:16] VITALS: BP 162/77; PULSE 86; RESP 16; TEMP 36.3; O2SAT 93
[2023-09-13] MEDS: cefTRIAXone sodium 2 GM in 0.9 % Sodium Chloride 50 ML IV ×2 (03:37→17:05)
[2023-09-13 03:59] VITALS: BP 153/72; PULSE 89; RESP 16; TEMP 37.2; O2SAT 96
[2023-09-13 05:29] LABS: Basophils Absolute Auto 0.1 X10*3/uL (0.0-0.2); Basophils Percent Auto 0.8 % (0-2); Eosinophils Absolute Auto 0.2 X10*3/uL (0.0-0.4); Eosinophils Percent Auto 2.2 % (0-4); Hematocrit 25.7 % (37.0-47.0); Hemoglobin 8.5 g/dl (12.0-16.0); Imm Gran Abs Auto 0.08 X10*3/uL (0.00-0.03); Lymphocytes Absolute Auto 1.5 X10*3/uL (1.2-4.9); Lymphocytes Percent Auto 18.2 % (20-40); MANUAL DIFF FLAG SCAN; Mean Corpuscular HGB Conc 33.1 g/dl (31.0-35.0); Mean Corpuscular Hemoglobin 30.1 pg (27.0-33.0); Mean Corpuscular Volume 91.1 fL (80.0-98.0); Mean Platelet Volume 10.8 fL (9.4-12.3); Monocytes Percent Auto 24.3 % (2-11); Neutrophils Absolute Auto 4.4 x10*3/uL (2.0-8.3); Neutrophils Percent Auto 53.5 % (45-73); Platelet Count 292 X10*3/uL (160-400); Red Blood Count 2.82 X10*6/uL (4.20-5.50); Red Cell Distribution Width 15.3 % (11.0-16.0); SCAN SMEAR FLAG 1; White Blood Count 8.3 X10*3/uL (4.8-10.8)
[2023-09-13 05:46] LABS: Anion Gap 23 (12-20); Blood Urea Nitrogen 69 mg/dL (9-16); Calcium 8.6 mg/dL (8.4-10.2); Carbon Dioxide 18 mmol/L (22-29); Chloride 98 mmol/L (96-108); Estimated Glomerular Filt Rate 11; Glucose Random 91 mg/dL (60-115); Potassium 3.7 mmol/L (3.3-5.1); Sodium 135 mmol/L (135-145)
[2023-09-13 06:01] LABS: SLIDE REVIEW VERIFIED
[2023-09-13 08:00] VITALS: BP 172/79; PULSE 92; RESP 16; TEMP 36.1; O2SAT 92
[2023-09-13] MEDS: buPROPion HCl XL 150 MG TAB.ER.24H PO (08:22)
[2023-09-13] MEDS: predniSONE 10 MG TABLET PO (08:22)
[2023-09-13] MEDS: carvediloL 12.5 MG TABLET PO ×2 (08:23→19:33)
[2023-09-13] MEDS: Lidocaine 4 % Patch ADH..PATCH 2 PATCH TRANSDERMA (08:24)
[2023-09-13] MEDS: Nystatin Powder 15 GM BOTTLE 1 APPL TOPICAL ×2 (08:39→19:33)
[2023-09-13] MEDS: traMADoL HCL 50 MG TABLET PO ×3 (09:26→23:32)
[2023-09-13] MEDS: ondansetron HCL 4 MG/2 ML VIAL IVPUSH (09:29)
--- NOTE | 2023-09-13 09:30 | HO.PM.IMPN ---
Subjective Subjective Date of Service: 09/13/23 Interval History: some nausea back pain controlled no fever SCr worse, only 100 mL urine output Review of Systems Review of Systems: Yes all other systems are reviewed and are negative Physical Exam Vital Signs: Vital Signs: Last Vital Signs Temp 97.0 F 09/13/23 08:00 Pulse 92 09/13/23 08:00 Resp 16 09/13/23 08:00 BP 172/79 H 09/13/23 08:00 Pulse Ox 92 09/13/23 08:00 O2 Del Method Room Air 09/13/23 08:00 O2 Flow Rate 2 09/11/23 07:35 FiO2 25 09/04/23 17:00 BMI result Body Mass Index 30.8 Gen: in no acute distress HEENT: sclera anicteric, moist mucus membranes, Sanchez unable to hear at all, Rinne with bilateral SNHL Neck: supple, RIJ HD catheter Lungs: diminished Heart: regular rate and rhythm, no murmurs Abd: soft, non-tender, non-distended Ext: no edema Skin: warm/well-perfused Neuro: alert and oriented x3, no focal findings except hearing loss as above Psych: appropriate affect Objective Data Active Medications Acetaminophen (Acetaminophen 325 Mg Tablet) 650 mg PO Q4H PRN PRN Reason: Pain, Mild (Pain Scale 1-3) Artificial Tears (Artificial Tears 15 Ml Drops) 2 drop EYE-BOTH Q4H PRN PRN Reason: Dry Eyes Last Admin: 08/29/23 08:33 Dose: 2 drop Documented By: ESTEFANIA Bupropion HCl (Bupropion Hcl Xl 150 Mg Tab.Er.24h) 150 mg PO DAILY [facility] Last Admin: 09/13/23 08:22 Dose: 150 mg Documented By: TAMICA Carvedilol (Carvedilol 12.5 Mg Tablet) 12.5 mg PO BID [facility]; Protocol Last Admin: 09/13/23 08:23 Dose: 12.5 mg Documented By: TAMICA Dextrose (Dextrose 50 % 25 Gm/50 Ml Syringe) 25 gm IVPUSH Q15M PRN PRN Reason: per Hypoglycemia Standing Ord. Last Admin: 08/21/23 13:27 Dose: 25 gm Documented By: HAROON Glucose (Glucose Gel 15 Gm Gel..Gram.) 15 gm PO Q15M PRN PRN Reason: per Hypoglycemia Standing Ord. Last Admin: 08/19/23 16:40 Dose: 15 gm Documented By: AVRIL Heparin Sodium (Porcine) (Heparin Sodium,Porcine 5,000 Unit/Ml Vial) 5,000 unit SUBCUT Q8H [facility] Last Admin: 09/07/23 17:45 Dose: 5,000 unit Documented By: TAMICA Ceftriaxone Sodium 2 gm/ (Sodium Chloride) 50 mls @ 100 mls/hr IV Q12H [facility] Last Infusion: 09/13/23 04:19 Dose: Infused Documented By: ALEXIA Lidocaine (Lidocaine 4 % Patch Adh..Patch) 2 patch TRANSDERMA DAILY [facility]; Protocol Last Admin: 09/13/23 08:24 Dose: 2 patch Documented By: TAMICA Nystatin (Nystatin Powder 15 Gm Bottle) 1 appl TOPICAL BID [facility]; Protocol Last Admin: 09/13/23 08:39 Dose: 1 appl Documented By: TAMICA Ondansetron HCl (Ondansetron Hcl 4 Mg/2 Ml Vial) 4 mg IVPUSH Q6H PRN PRN Reason: Nausea and Vomiting Last Admin: 09/13/23 09:29 Dose: 4 mg Documented By: TAMICA Prednisone (Prednisone 10 Mg Tablet) 10 mg PO DAILY [facility] Last Admin: 09/13/23 08:22 Dose: 10 mg Documented By: TAMICA Tramadol HCl (Tramadol Hcl 50 Mg Tablet) 50 mg PO Q6H PRN PRN Reason: Pain severe Last Admin: 09/13/23 09:26 Dose: 50 mg Documented By: TAMICA Labs 09/13/23 05:05 09/13/23 05:05 Labs: Laboratory Results - last 24 hr 09/13/23 05:05 MCV 91.1 MCH 30.1 MCHC 33.1 RDW 15.3 Plt Count 292 MPV 10.8 Immature Gran % (Auto) 1.0 H Neut % (Auto) 53.5 Lymph % (Auto) 18.2 L [place] % (Auto) 24.3 H Eos % (Auto) 2.2 Baso % (Auto) 0.8 Lymph # (Auto) 1.5 [place] # (Auto) 2.0 H Eos # (Auto) 0.2 Baso # (Auto) 0.1 Abs Immat Gran (auto) 0.08 H Absolute Neuts (auto) 4.4 Absolute Nucleated RBC 0.000 Nucleated RBC % (auto) 0.0 Smear Tech's Comments VERIFIED Anion Gap 23 H Estim Creat Clear Calc 14.0 Estimated GFR 11 Random Glucose 91 Calcium 8.6 Assessment and Plan (1) Pulmonary aspiration: Status: Acute (2) BRE (acute kidney injury): Status: Acute (3) Dysphasia: Status: Acute Plan d27 73yo F with sarcoidoisis + RA on O[place]cia admitted to ICU due to septic shock from streptococcal pneumonia/bacteremia, intubated 08/21/23 for acute hypoxic respiratory failure ICU course complicated by demand NSTEMI and BRE requiring HD extubated 08/29 and stepped down to hospitalist service 08/31 aspirated and re-intubated 09/03/23 but extubated 09/04/23 stepped down to hospitalist service 09/07/23 BRE - HD started 08/21, Nephrology following, has tunneled RIJ catheter placed 09/08/23, HD + renal biopsy now on hold in hopes of documenting renal recovery but SCr is increasing and has very little urine output; will likely need HD today and renal biopsy 09/15 - has MGUS; consulted Heme-Onc as per Nephro recommendation, sFLCR pending, doubt this is etiology of BRE in her AHRF due to aspiration AHRF and 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 This may need to be dosed for HD pending renal input. The patient did get stress-dose HCT in the ICU, so she recommends against dexamethasone at this time. hx AF/RVR acute HFrEF NSTEMI, likely demand - TTE 08/19/23: 1. Moderate to severe reduction LV ejection fraction with LVEF of 30-35% with impaired relaxation filling pattern 2. Mild mitral calcification and calcific aortic valve changes noted with cardiac valvular Dopplers within normal limits 3. No gross pericardial effusion - EKG, Cardiology consulted, switched amlodipine to carvedilol [increase dose further, 6.25->12.5 mg bidtoday]. Eventually to consider valsartan pending resolution of renal issues. Will need outpt ischemic workup. Will also need to be on apixaban once definitely not needing a renal biopsy. dysphagia - NDD3 diet + nectar-thick liquids, MBSS showed subglottic aspiration with thin liquids L-sided hearing loss - ?from invasive pneumococcal disease. consulted Neuro, no MRI evidence of sarcoid involvement. did not get any aminoglycosides in ICU. got high-dose steroids in ICU for adrenal insufficiency of septic shock. ABX as above. RA sarcoidosis - transitioned back to regular dose of prednisone 10 mg daily mood disorder - bupropion VTE ppx - hold UFH in case of renal biopsy dispo - STR recommended but pt declines. She cites having enough family support and equipment at home. In my clinical judgment, the patient requires continued inpatient hospitalization for the following reasons: renal recovery Total time managing care of this patient today: 45 minutes. Quality Stroke Does the patient have a stroke diagnosis?: No VTE Prior VTE?: No VTE Risk Level:: Medical - moderate - high VTE Device Contraindication: N/A - Device Ordered VTE Drug Contraindication: N/A - Med Ordered
--- NOTE | 2023-09-13 12:35 | MHC.SL.SWA ---
Risk of Aspiration Due to: Lethargy History of Pneumonia Hx of Recent Extubation Dysphasia Diet Status: Recommend CONTINUE on CHOPPED/ADVANCED (NDD3) diet and NECTAR THICK liquids. Speech therapy to continue with trials of thin liquid by teaspoon or cup, continued assessment for potential upgrade to thin liquids if appropriate given pt?s medical status. Ad interim, pt is recommended a [place] Water Protocol for comfort and to promote hydration. Per protocol, pt to be permitted water between meals with strict aspiration precautions and nursing or MEDICAL LEADER supervision. Oral care to be provided after meals/before presentation of water. Water to be given by teaspoon or individual cup sip, with cues for volitional throat clear after sip. Following strategies are recommended to maximize feeding safety: -Liquids via teaspoon or individual cup sips -Avoid the use of straws -Moisten foods with sauces and gravies -Avoid sticky or hard foods; mixed consistencies (i.e. thin broth soup with solid ingredients) -Small bites, one bite at a time -Ensure oral cavity is clear before giving next bite -Follow bite with dry swallow then sip of liquid -Maintain 90 degree position during PO intake and for at least 30-45 minutes afterwards Liquid Consistency and Strategies for Safe Swallow: Liquid Intake Recommendation: [place] Thick Liquid Intake Strategies: Small Sips No Straws Double Swallow Solid Food Consistency: Dietary Recommendations: Chopped/Advanced (NDD3) Oral Medication Intake: Crushed with Puree Please contact the pharmacy regarding appropriate crushable or liquid drug formulations that are available whenever modified delivery is recommended. Compensatory Strategies and Precautions to be Taken for Safe Swallow: Sitting Upright (90 deg) Double Swallow No Straw Liquids from Cup Liquids from Spoon Small Bites and Sips Alternate Liquids/Solids Rate of Ingestion Change Avoid Specific Foods Supervision While Eating and Drinking for Safe Swallow: Total Supervision (1:1) Foods to Avoid: Avoid sticky or hard foods; mixed consistencies (i.e. thin broth soup with solid ingredients) Swallowing Recommended Treatments: Compens. Strategy Educat. Recommendation for Speech: Inpatient Speech Therapy Speech Therapy through Rehab Facility Modified Barium Swallow Study - Outpatient Comment: Pt seen this morning w/ at bedside for FFWT education and trials. MEDICAL LEADER communicated with pt primarily using Trueffect board, due to acute hearing loss. Pt's reported copy of MBSS was at home. Another copy was provided w/ educational handouts RE: chopped dysphagia diet, thickened liqiuds, and FFWT. Pt able to recall strategies of FFWT and recommendations given by MEDICAL LEADER. Pt's provided education on FFWT and nectar thick consistency. Recommendation for continued dysphagia tx and f/u MBSS following d/c was discussed w/ pt's . Pt drank water by cup and was reminded to take small individual sips clearing throat following swallow. Patient observed to follow recommendations and clear throat independently following swallow. Patient intermittently produced cough following swallow, slightly delayed after throat clear. Patient reported throat clear or cough given as strategy recommendation. Frequency/Duration: M-F during inpatient stay Date Range for Service Req: Recommend continuation of speech therapy for the treatment of dysphagia, during hospitalization and post-discharge, with repeat-MBSS when appropriate. Latex Thread Machine Operator Clinican/Clinical Fellow: No Supervisory Statement: I have reviewed and agree with the student/clinical fellow's documentation: N/A Speech Language Pathologist: Priscilla Chavez M.A., CCC-MEDICAL LEADER
--- NOTE | 2023-09-13 15:43 | P.PNNP_ITS ---
Subjective Subjective Date of Service: 09/13/23 Interval history: some nausea back pain controlled no fever SCr worse, only 150 mL urine output Physical Exam 2 Vital Signs: Vital Signs: Last Vital Signs Temp 97.0 F 09/13/23 08:00 Pulse 92 09/13/23 08:00 Resp 16 09/13/23 08:00 BP 172/79 H 09/13/23 08:00 Pulse Ox 92 09/13/23 08:00 O2 Del Method Room Air 09/13/23 08:00 O2 Flow Rate 2 09/11/23 07:35 FiO2 25 09/04/23 17:00 BMI result Body Mass Index 30.8 cvs:s1s2 rs: cta abd: soft le: trace edema Objective Data Labs 09/13/23 05:05 09/13/23 05:05 Labs: Laboratory Results - last 24 hr 09/13/23 05:05 WBC 8.3 RBC 2.82 L Hgb 8.5 L Hct 25.7 L MCV 91.1 MCH 30.1 MCHC 33.1 RDW 15.3 Plt Count 292 MPV 10.8 Immature Gran % (Auto) 1.0 H Neut % (Auto) 53.5 Lymph % (Auto) 18.2 L [place] % (Auto) 24.3 H Eos % (Auto) 2.2 Baso % (Auto) 0.8 Lymph # (Auto) 1.5 [place] # (Auto) 2.0 H Eos # (Auto) 0.2 Baso # (Auto) 0.1 Abs Immat Gran (auto) 0.08 H Absolute Neuts (auto) 4.4 Absolute Nucleated RBC 0.000 Nucleated RBC % (auto) 0.0 Smear Tech's Comments VERIFIED Sodium 135 Potassium 3.7 Chloride 98 Carbon Dioxide 18 L Anion Gap 23 H BUN 69 H Creatinine 3.94 H Estim Creat Clear Calc 14.0 Estimated GFR 11 Random Glucose 91 Calcium 8.6 Microbiology Microbiology Results: Microbiology 09/03/23 21:22 Blood - Venous Blood Culture - Final No growth after 5 days. 09/03/23 21:22 Blood - Venous Blood Culture - Final No growth after 5 days. 09/03/23 22:53 Sputum - Suctioned Gram Stain - Final 09/03/23 22:53 Sputum - Suctioned Sputum Culture - Final Laura albicans 09/01/23 06:30 Blood - Venous Blood Culture - Final No growth after 5 days. 09/01/23 06:30 Blood - Venous Blood Culture - Final No growth after 5 days. 08/26/23 13:39 Blood - Venous Blood Culture - Final No growth after 5 days. 08/26/23 13:39 Blood - Venous Blood Culture - Final No growth after 5 days. 08/18/23 21:45 Blood - Venous Blood Culture - Final Streptococcus pneumoniae 08/18/23 20:17 Blood - Venous Blood Culture - Final Streptococcus pneumoniae Procedures Date of Service Date of Service: 09/13/23 Assessment & Plan Assessment and plan (1) BRE (acute kidney injury): Status: Acute Plan DDX includes ATN, but has underlying MGUS, low complements so ddx includes myeloma kidney, cryoglobulinemia. Doubt lupus nephritis or mixed connective tissue disease but possible given RA; postinfectious GN possible. Plan HD TTS - last hd 09/10/23 - held hd while monitoring uop and cr for recovery -as improving uop - never charted- however per nursing only 150 ml uop last 24 hrs( charted) cr 2.76--> 3.41--> 3.91 today - therefore will Dialyse today ( 09/13) Has a IJ Perm cath Await cryoglobulins, ds DNA- negative ( MAXX : Other serologies negative ) Needs a renal biopsy given: No BRE recovery +ve immunofixation with BRE / Low compliments - ? periinfectious GN - I will discuss with medical team and IR - likely next thursday Suggest Hematology eval for +ve Immunofixation Out pt Hd spot being arranged Need to know the disposition of this patient - if going to rehab- Which Rehab (2) MGUS (monoclonal gammopathy of unknown significance): Status: Acute (3) Metabolic acidosis: Status: Acute Assessment and Plan: Due to BRE Time Spent With Patient Time: Total time managing care of this patient today ____ minutes. Progress Note: Quality Stroke Does the patient have a stroke diagnosis?: No
[2023-09-13 19:08] VITALS: BP 140/67; PULSE 95; RESP 16; TEMP 36.3; O2SAT 94
[2023-09-14] MEDS: cefTRIAXone sodium 2 GM in 0.9 % Sodium Chloride 50 ML IV (03:25)
[2023-09-14 03:56] VITALS: BP 145/67; PULSE 89; RESP 16; TEMP 36.5; O2SAT 93
[2023-09-14 06:02] LABS: Basophils Absolute Auto 0.1 X10*3/uL (0.0-0.2); Eosinophils Absolute Auto 0.2 X10*3/uL (0.0-0.4); Hematocrit 25.6 % (37.0-47.0); Hemoglobin 8.3 g/dl (12.0-16.0); Imm Gran Abs Auto 0.11 X10*3/uL (0.00-0.03); Imm Gran Pct Auto 1.5 % (0.0-0.4); Lymphocytes Absolute Auto 1.5 X10*3/uL (1.2-4.9); Lymphocytes Percent Auto 20.4 % (20-40); MANUAL DIFF FLAG SCAN; Mean Corpuscular HGB Conc 32.4 g/dl (31.0-35.0); Mean Corpuscular Volume 92.4 fL (80.0-98.0); Mean Platelet Volume 10.8 fL (9.4-12.3); Monocytes Absolute Auto 1.8 X10*3/uL (0.1-1.2); Monocytes Percent Auto 24.3 % (2-11); Neutrophils Absolute Auto 3.7 x10*3/uL (2.0-8.3); Neutrophils Percent Auto 50.8 % (45-73); Platelet Count 296 X10*3/uL (160-400); Red Blood Count 2.77 X10*6/uL (4.20-5.50); Red Cell Distribution Width 15.5 % (11.0-16.0); SCAN SMEAR FLAG 1; White Blood Count 7.3 X10*3/uL (4.8-10.8)
[2023-09-14 06:07] LABS: Anion Gap 18 (12-20); Blood Urea Nitrogen 34 mg/dL (9-16); Calcium 8.9 mg/dL (8.4-10.2); Carbon Dioxide 22 mmol/L (22-29); Chloride 97 mmol/L (96-108); Estimated Glomerular Filt Rate 20; Glucose Random 87 mg/dL (60-115); Potassium 3.2 mmol/L (3.3-5.1); Sodium 134 mmol/L (135-145)
[2023-09-14 06:08] LABS: INTERNATIONAL NORM RATIO 1.1 (0.9-1.1); Prothrombin Time 12.9 SEC (11.1-13.3)
[2023-09-14 06:10] LABS: Partial Thromboplastin Time 23.8 SEC (26.0-36.4)
[2023-09-14 06:24] LABS: SLIDE REVIEW VERIFIED
[2023-09-14 07:51] VITALS: BP 145/73; PULSE 96; RESP 20; TEMP 36.6; O2SAT 96
[2023-09-14] MEDS: carvediloL 25 MG TABLET PO ×2 (08:18→19:32)
[2023-09-14] MEDS: buPROPion HCl XL 150 MG TAB.ER.24H PO (08:19)
[2023-09-14] MEDS: predniSONE 10 MG TABLET PO (08:19)
[2023-09-14] MEDS: Lidocaine 4 % Patch ADH..PATCH 2 PATCH TRANSDERMA (08:19)
[2023-09-14] MEDS: Potassium Chloride Packet 20 MEQ PACKET PO (08:26)
[2023-09-14] MEDS: traMADoL HCL 50 MG TABLET PO ×2 (08:31→19:32)
--- NOTE | 2023-09-14 09:08 | P.PNIM_ITS ---
Subjective Subjective Date of Service: 09/14/23 Interval History: Nausea resolved Had HD yesterday No cough BP improved Communication via whiteboard given hearing loss Review of Systems Review of Systems: Yes all other systems are reviewed and are negative Physical Exam 2 Vital Signs: Vital Signs: Last Vital Signs Temp 98 F 09/14/23 07:51 Pulse 96 09/14/23 07:51 Resp 20 09/14/23 07:51 BP 145/73 H 09/14/23 07:51 Pulse Ox 96 09/14/23 07:51 O2 Del Method Room Air 09/14/23 07:51 O2 Flow Rate 2 09/11/23 07:35 FiO2 25 09/04/23 17:00 BMI result Body Mass Index 30.8 Gen: in no acute distress HEENT: sclera anicteric, moist mucus membranes, Sanchez unable to hear so cannot lateralize, Rinne with bilateral SNHL Neck: supple, RIJ HD catheter Lungs: diminished Heart: regular rate and rhythm, no murmurs Abd: soft, non-tender, non-distended Ext: no edema Skin: warm/well-perfused Neuro: alert and oriented x3, no focal findings except hearing loss as above Psych: appropriate affect Objective Data Active Medications Acetaminophen (Acetaminophen 325 Mg Tablet) 650 mg PO Q4H PRN PRN Reason: Pain, Mild (Pain Scale 1-3) Artificial Tears (Artificial Tears 15 Ml Drops) 2 drop EYE-BOTH Q4H PRN PRN Reason: Dry Eyes Last Admin: 08/29/23 08:33 Dose: 2 drop Documented By: ESTEFANIA Bupropion HCl (Bupropion Hcl Xl 150 Mg Tab.Er.24h) 150 mg PO DAILY [facility] Last Admin: 09/14/23 08:19 Dose: 150 mg Documented By: TAMICA Carvedilol (Carvedilol 25 Mg Tablet) 25 mg PO BID [facility]; Protocol Last Admin: 09/14/23 08:18 Dose: 25 mg Documented By: TAMICA Dextrose (Dextrose 50 % 25 Gm/50 Ml Syringe) 25 gm IVPUSH Q15M PRN PRN Reason: per Hypoglycemia Standing Ord. Last Admin: 08/21/23 13:27 Dose: 25 gm Documented By: HAROON Glucose (Glucose Gel 15 Gm Gel..Gram.) 15 gm PO Q15M PRN PRN Reason: per Hypoglycemia Standing Ord. Last Admin: 08/19/23 16:40 Dose: 15 gm Documented By: AVRIL Heparin Sodium (Porcine) (Heparin Sodium,Porcine 5,000 Unit/Ml Vial) 5,000 unit SUBCUT Q8H [facility] Last Admin: 09/07/23 17:45 Dose: 5,000 unit Documented By: TAMICA Ceftriaxone Sodium 2 gm/ (Sodium Chloride) 50 mls @ 100 mls/hr IV Q24H [facility] Lidocaine (Lidocaine 4 % Patch Adh..Patch) 2 patch TRANSDERMA DAILY [facility]; Protocol Last Admin: 09/14/23 08:19 Dose: 2 patch Documented By: TAMICA Nystatin (Nystatin Powder 15 Gm Bottle) 1 appl TOPICAL BID [facility]; Protocol Last Admin: 09/13/23 19:33 Dose: 1 appl Documented By: CARMEN Ondansetron HCl (Ondansetron Hcl 4 Mg/2 Ml Vial) 4 mg IVPUSH Q6H PRN PRN Reason: Nausea and Vomiting Last Admin: 09/13/23 09:29 Dose: 4 mg Documented By: TAMICA Prednisone (Prednisone 10 Mg Tablet) 10 mg PO DAILY [facility] Last Admin: 09/14/23 08:19 Dose: 10 mg Documented By: TAMICA Tramadol HCl (Tramadol Hcl 50 Mg Tablet) 50 mg PO Q6H PRN PRN Reason: Pain severe Last Admin: 09/14/23 08:31 Dose: 50 mg Documented By: TAMICA Labs 09/14/23 04:58 09/14/23 04:58 Labs: Laboratory Results - last 24 hr 09/14/23 04:58 MCV 92.4 MCH 30.0 MCHC 32.4 RDW 15.5 Plt Count 296 MPV 10.8 Immature Gran % (Auto) 1.5 H Neut % (Auto) 50.8 Lymph % (Auto) 20.4 [place] % (Auto) 24.3 H Eos % (Auto) 2.0 Baso % (Auto) 1.0 Lymph # (Auto) 1.5 [place] # (Auto) 1.8 H Eos # (Auto) 0.2 Baso # (Auto) 0.1 Abs Immat Gran (auto) 0.11 H Absolute Neuts (auto) 3.7 Absolute Nucleated RBC 0.000 Nucleated RBC % (auto) 0.0 Smear Tech's Comments VERIFIED PT 12.9 INR 1.1 APTT 23.8 L Anion Gap 18 Estim Creat Clear Calc 23.0 Estimated GFR 20 Random Glucose 87 Calcium 8.9 Assessment and Plan (1) Pulmonary aspiration: Status: Acute (2) BRE (acute kidney injury): Status: Acute (3) Dysphasia: Status: Acute Plan d27 73yo F with sarcoidoisis + RA on abatacept admitted to ICU 08/18/23 due to septic shock from streptococcal pneumonia/bacteremia, intubated 08/21/23 for acute hypoxic respiratory failure ICU course complicated by demand NSTEMI, BRE requiring HD, and hearing loss extubated 08/29 and stepped down to hospitalist service 08/31 aspirated and re-intubated 09/03/23 but extubated 09/04/23 stepped back down to hospitalist service 09/07/23 BRE - HD started 08/21, Nephrology following - tunneled RIJ catheter placed 09/08/23 - HD held 09/10-09/13 in the hopes of renal recovery but required HD yesterday due to oliguria + acidosis; HD now TuThSa - needs renal biopsy; will try to schedule for tomorrow if possible; NPO after midnight - has MGUS; consulted Heme-Onc as per Nephro recommendation, sFLCR pending, doubt this is etiology of BRE in her hypoK - replete PO; recheck in AM AHRF due to aspiration AHRF and septic shock due to invasive pneumococcal disease - weaned off O2 - completed antibiotics as follows: - cefepime 08/19-08/23/23 - ceftriaxone 08/24-08/30/23 - pip-terrie 08/18-08/19/23, 09/01-09/05/23 - metronidazole 08/19-08/23/23 - vancomycin 08/19/23 once and again on 09/03/23 - discussed with ID: as cefepime does not have the best ABALONE PROCESSOR penetration, and it is possible there was ABALONE PROCESSOR involvement of her pneumococcal disease given the bacteremia which would explain hearing loss, she recommends another 14d of ceftriaxone. The patient did get stress-dose HCT in the ICU, so she recommends against dexamethasone at this time. SNHL, R>L - ?from invasive pneumococcal disease. consulted Neuro, no MRI evidence of sarcoid involvement. did not get any aminoglycosides in ICU. got high-dose steroids in ICU for adrenal insufficiency of septic shock. ABX as above. hx AF/RVR acute HFrEF NSTEMI, likely demand - TTE 08/19/23: 1. Moderate to severe reduction LV ejection fraction with LVEF of 30-35% with impaired relaxation filling pattern 2. Mild mitral calcification and calcific aortic valve changes noted with cardiac valvular Dopplers within normal limits 3. No gross pericardial effusion - EKG, Cardiology consulted, switched amlodipine to carvedilol [increase dose further today, 12.5->25 mg bid]. Eventually to consider valsartan pending resolution/stabilization of renal issues. Will need Cardiology follow-up and outpt ischemic workup. Will also need to be on apixaban after renal biopsy dysphagia - NDD3 diet + nectar-thick liquids; MBSS showed subglottic aspiration with thin liquids RA sarcoidosis - transitioned back to regular dose of prednisone 10 mg daily mood disorder - bupropion VTE ppx - hold UFH in case of renal biopsy. Eventually put on apixaban for CVA prevention given AF. dispo - STR recommended but pt declines. She cites having enough family support and equipment at home. In my clinical judgment, the patient requires continued inpatient hospitalization for the following reasons: renal biopsy, dialysis placement Total time managing care of this patient today: 45 minutes. Quality Stroke Does the patient have a stroke diagnosis?: No VTE Prior VTE?: No VTE Risk Level:: Medical - moderate - high VTE Device Contraindication: N/A - Device Ordered VTE Drug Contraindication: N/A - Med Ordered
[2023-09-14] MEDS: Nystatin Powder 15 GM BOTTLE 1 APPL TOPICAL ×2 (09:15→19:39)
[2023-09-14] MEDS: ondansetron HCL 4 MG/2 ML VIAL IVPUSH (10:23)
--- NOTE | 2023-09-14 14:33 | P.PNNP_ITS ---
Subjective Subjective Date of Service: 09/14/23 Interval history: Nausea resolved Had HD yesterday No cough BP improved Communication via whiteboard given hearing loss Physical Exam 2 Vital Signs: Vital Signs: Last Vital Signs Temp 98 F 09/14/23 07:51 Pulse 96 09/14/23 07:51 Resp 20 09/14/23 07:51 BP 145/73 H 09/14/23 07:51 Pulse Ox 96 09/14/23 07:51 O2 Del Method Room Air 09/14/23 07:51 O2 Flow Rate 2 09/11/23 07:35 FiO2 25 09/04/23 17:00 BMI result Body Mass Index 30.8 cvs:s1s2 rs: cta abd: soft le: trace edema Objective Data Labs 09/14/23 04:58 09/14/23 04:58 Labs: Laboratory Results - last 24 hr 09/14/23 04:58 WBC 7.3 RBC 2.77 L Hgb 8.3 L Hct 25.6 L MCV 92.4 MCH 30.0 MCHC 32.4 RDW 15.5 Plt Count 296 MPV 10.8 Immature Gran % (Auto) 1.5 H Neut % (Auto) 50.8 Lymph % (Auto) 20.4 [place] % (Auto) 24.3 H Eos % (Auto) 2.0 Baso % (Auto) 1.0 Lymph # (Auto) 1.5 [place] # (Auto) 1.8 H Eos # (Auto) 0.2 Baso # (Auto) 0.1 Abs Immat Gran (auto) 0.11 H Absolute Neuts (auto) 3.7 Absolute Nucleated RBC 0.000 Nucleated RBC % (auto) 0.0 Smear Tech's Comments VERIFIED PT 12.9 INR 1.1 APTT 23.8 L Sodium 134 L Potassium 3.2 L Chloride 97 Carbon Dioxide 22 Anion Gap 18 BUN 34 H Creatinine 2.41 H Estim Creat Clear Calc 23.0 Estimated GFR 20 Random Glucose 87 Calcium 8.9 Microbiology Microbiology Results: Microbiology 09/03/23 21:22 Blood - Venous Blood Culture - Final No growth after 5 days. 09/03/23 21:22 Blood - Venous Blood Culture - Final No growth after 5 days. 09/03/23 22:53 Sputum - Suctioned Gram Stain - Final 09/03/23 22:53 Sputum - Suctioned Sputum Culture - Final Laura albicans 09/01/23 06:30 Blood - Venous Blood Culture - Final No growth after 5 days. 09/01/23 06:30 Blood - Venous Blood Culture - Final No growth after 5 days. 08/26/23 13:39 Blood - Venous Blood Culture - Final No growth after 5 days. 08/26/23 13:39 Blood - Venous Blood Culture - Final No growth after 5 days. 08/18/23 21:45 Blood - Venous Blood Culture - Final Streptococcus pneumoniae 08/18/23 20:17 Blood - Venous Blood Culture - Final Streptococcus pneumoniae Procedures Date of Service Date of Service: 09/14/23 Assessment & Plan Assessment and plan (1) BRE (acute kidney injury): Status: Acute Plan DDX includes ATN, but has underlying MGUS, low complements so ddx includes myeloma kidney, cryoglobulinemia. Doubt lupus nephritis or mixed connective tissue disease but possible given RA; postinfectious GN possible. Plan HD TTS - last hd 09/10/23 - held hd while monitoring uop and cr for recovery -as improving uop - never charted- however per nursing only 150 ml uop last 24 hrs( charted) cr 2.76--> 3.41--> 3.91--> 2.41 - Dialysed thursday ( 09/13) Has a IJ Perm cath Cryoglobulins- not detected, ds DNA- negative ( MAXX : Other serologies negative ) Needs a renal biopsy given: No BRE recovery +ve immunofixation with BRE / Low compliments - ? periinfectious GN - Order placed for IR - thursday - npo past midnight Suggest Hematology eval for +ve Immunofixation Out pt Hd spot being arranged Need to know the disposition of this patient - if going to rehab- Which Rehab (2) MGUS (monoclonal gammopathy of unknown significance): Status: Acute (3) Metabolic acidosis: Status: Acute Assessment and Plan: Due to BRE Time Spent With Patient Time: Total time managing care of this patient today ____ minutes. Progress Note: Quality Stroke Does the patient have a stroke diagnosis?: No
--- NOTE | 2023-09-14 15:16 | P.PNNP_ITS ---
Subjective Subjective Date of Service: 09/14/23 Interval history: Nausea resolved Had HD yesterday No cough BP improved Communication via whiteboard given hearing loss Physical Exam 2 Vital Signs: Vital Signs: Last Vital Signs Temp 98 F 09/14/23 07:51 Pulse 96 09/14/23 07:51 Resp 20 09/14/23 07:51 BP 145/73 H 09/14/23 07:51 Pulse Ox 96 09/14/23 07:51 O2 Del Method Room Air 09/14/23 07:51 O2 Flow Rate 2 09/11/23 07:35 FiO2 25 09/04/23 17:00 BMI result Body Mass Index 30.8 Const: General: no acute distress Orientation/consciousness: patient oriented x3 Resp: Auscultation: clear to auscultation bilaterally and diminished lung sounds Cardio: Jugular venous distension: no JVD Heart sounds: S1 normal heart sound present and S2 normal heart sound present Neuro: General: patient oriented x3 Extrem: General: No edema Objective Data Labs 09/14/23 04:58 09/14/23 04:58 Labs: Laboratory Results - last 24 hr 09/14/23 04:58 WBC 7.3 RBC 2.77 L Hgb 8.3 L Hct 25.6 L MCV 92.4 MCH 30.0 MCHC 32.4 RDW 15.5 Plt Count 296 MPV 10.8 Immature Gran % (Auto) 1.5 H Neut % (Auto) 50.8 Lymph % (Auto) 20.4 [place] % (Auto) 24.3 H Eos % (Auto) 2.0 Baso % (Auto) 1.0 Lymph # (Auto) 1.5 [place] # (Auto) 1.8 H Eos # (Auto) 0.2 Baso # (Auto) 0.1 Abs Immat Gran (auto) 0.11 H Absolute Neuts (auto) 3.7 Absolute Nucleated RBC 0.000 Nucleated RBC % (auto) 0.0 Smear Tech's Comments VERIFIED PT 12.9 INR 1.1 APTT 23.8 L Sodium 134 L Potassium 3.2 L Chloride 97 Carbon Dioxide 22 Anion Gap 18 BUN 34 H Creatinine 2.41 H Estim Creat Clear Calc 23.0 Estimated GFR 20 Random Glucose 87 Calcium 8.9 Microbiology Microbiology Results: Microbiology 09/03/23 21:22 Blood - Venous Blood Culture - Final No growth after 5 days. 09/03/23 21:22 Blood - Venous Blood Culture - Final No growth after 5 days. 09/03/23 22:53 Sputum - Suctioned Gram Stain - Final 09/03/23 22:53 Sputum - Suctioned Sputum Culture - Final Laura albicans 09/01/23 06:30 Blood - Venous Blood Culture - Final No growth after 5 days. 09/01/23 06:30 Blood - Venous Blood Culture - Final No growth after 5 days. 08/26/23 13:39 Blood - Venous Blood Culture - Final No growth after 5 days. 08/26/23 13:39 Blood - Venous Blood Culture - Final No growth after 5 days. 08/18/23 21:45 Blood - Venous Blood Culture - Final Streptococcus pneumoniae 08/18/23 20:17 Blood - Venous Blood Culture - Final Streptococcus pneumoniae Procedures Date of Service Date of Service: 09/14/23 Assessment & Plan Time Spent With Patient Time: Total time managing care of this patient today ____ minutes. Progress Note: Quality Stroke Does the patient have a stroke diagnosis?: No
--- NOTE | 2023-09-14 15:20 | P.PNNP_ITS ---
Physical Exam 2 Const: Other: Awake alert no acute distress HEENT: Teeth and gingiva: dentition normal Eyes: Sclerae: sclerae normal EOM: EOMs intact bilaterally Neck: Other: Left IJ line Resp: Other: Clear to auscultation bilaterally no rales rhonchi or wheezes Effort & Inspection: normal respiratory effort, abnormal respiratory pattern and no respiratory distress Auscultation: clear to auscultation bilaterally and diminished lung sounds Cardio: Other: No S4; positive S1-S2; no S3 murmurs rubs or gallops GI: Other: Soft nontender nondistended normoactive bowel sounds Inspection: Yes normal to inspection, No Abdominal wall edema and No distended Palpation (GI): Soft to palpation, not firm, nontender, no guarding, not rigid and Other GI palpation findings present ( Nontender) P ercussion: Yes normal to percussion Auscultation: normal bowel sounds Skin: Other: appreciable scattered purpura Neuro: Other: She is alert and awake with normal spontaneity of speech fluency comprehension and depressed affect. She did not hear what I said but was able to communicate with written material. Face was symmetrical. There was no nystagmus. Visual sinha were full. Trophic skin changes were noted and hands in feet. Deep tendon reflexes were absent. Extrem: Other: No edema bilaterally Psych: Other: unable to assess Appearance: grossly normal Objective Data Labs 09/17/23 10:03 09/17/23 10:03 Labs: Laboratory Results - last 24 hr 09/14/23 04:58 WBC 7.3 RBC 2.77 L Hgb 8.3 L Hct 25.6 L MCV 92.4 MCH 30.0 MCHC 32.4 RDW 15.5 Plt Count 296 MPV 10.8 Immature Gran % (Auto) 1.5 H Neut % (Auto) 50.8 Lymph % (Auto) 20.4 [place] % (Auto) 24.3 H Eos % (Auto) 2.0 Baso % (Auto) 1.0 Lymph # (Auto) 1.5 [place] # (Auto) 1.8 H Eos # (Auto) 0.2 Baso # (Auto) 0.1 Abs Immat Gran (auto) 0.11 H Absolute Neuts (auto) 3.7 Absolute Nucleated RBC 0.000 Nucleated RBC % (auto) 0.0 Smear Tech's Comments VERIFIED PT 12.9 INR 1.1 APTT 23.8 L Sodium 134 L Potassium 3.2 L Chloride 97 Carbon Dioxide 22 Anion Gap 18 BUN 34 H Creatinine 2.41 H Estim Creat Clear Calc 23.0 Estimated GFR 20 Random Glucose 87 Calcium 8.9 Microbiology Microbiology Results: Microbiology 09/03/23 21:22 Blood - Venous Blood Culture - Final No growth after 5 days. 09/03/23 21:22 Blood - Venous Blood Culture - Final No growth after 5 days. 09/03/23 22:53 Sputum - Suctioned Gram Stain - Final 09/03/23 22:53 Sputum - Suctioned Sputum Culture - Final Laura albicans 09/01/23 06:30 Blood - Venous Blood Culture - Final No growth after 5 days. 09/01/23 06:30 Blood - Venous Blood Culture - Final No growth after 5 days. 08/26/23 13:39 Blood - Venous Blood Culture - Final No growth after 5 days. 08/26/23 13:39 Blood - Venous Blood Culture - Final No growth after 5 days. 08/18/23 21:45 Blood - Venous Blood Culture - Final Streptococcus pneumoniae 08/18/23 20:17 Blood - Venous Blood Culture - Final Streptococcus pneumoniae Procedures Date of Service Date of Service: 09/17/23 Assessment & Plan Assessment and plan (1) BRE (acute kidney injury): Status: Acute Plan DDX includes ATN, but has underlying MGUS, low complements so ddx includes myeloma kidney, cryoglobulinemia. Doubt lupus nephritis or mixed connective tissue disease but possible given RA; postinfectious GN possible. BRE HD dpe now x severeal weeks and typically expect renal func to improve if it were simply ATN REC: recheck renal labs in am and if SCr cont incr then prceed with kidney Bx; avoid NToxins; cont HD support as need --next HD tentatively for Time Spent With Patient Time: Total time managing care of this patient today ____ minutes. Progress Note: Quality Stroke Does the patient have a stroke diagnosis?: No
[2023-09-14 15:32] VITALS: BP 136/66; PULSE 88; RESP 20; TEMP 36.6; O2SAT 95
[2023-09-14 19:20] VITALS: BP 163/78; PULSE 97; RESP 18; TEMP 36.1; O2SAT 93
[2023-09-15 03:07] VITALS: BP 164/77; PULSE 84; RESP 14; TEMP 36; O2SAT 94
[2023-09-15] MEDS: cefTRIAXone sodium 2 GM in 0.9 % Sodium Chloride 50 ML IV (05:47)
[2023-09-15 07:07] VITALS: BP 141/65; PULSE 88; RESP 20; TEMP 36.8; O2SAT 95
[2023-09-15 09:41] LABS: Anion Gap 18 (12-20); Blood Urea Nitrogen 49 mg/dL (9-16); Calcium 9.1 mg/dL (8.4-10.2); Carbon Dioxide 23 mmol/L (22-29); Chloride 97 mmol/L (96-108); Creatinine Clr Calc Pharmacy 18.2; Estimated Glomerular Filt Rate 15; Glucose Random 80 mg/dL (60-115); Potassium 4.1 mmol/L (3.3-5.1); Sodium 134 mmol/L (135-145)
[2023-09-15] MEDS: buPROPion HCl XL 150 MG TAB.ER.24H PO (10:17)
[2023-09-15] MEDS: carvediloL 25 MG TABLET PO ×2 (10:17→20:05)
[2023-09-15] MEDS: predniSONE 10 MG TABLET PO (10:17)
--- NOTE | 2023-09-15 10:43 | MHC.CM.NN ---
per rounds pt will need a biopsy prior to dc dc plan remanins for str
--- NOTE | 2023-09-15 11:04 | HO.PM.IMPN ---
Subjective Subjective Date of Service: 09/15/23 Interval History: denies new c/o-no nausea/vomiting bp flactuatin Communication via whiteboard given hearing loss Review of Systems no fever or chills Review of Systems: Yes all other systems are reviewed and are negative Physical Exam Vital Signs: Vital Signs: Last Vital Signs Temp 98.3 F 09/15/23 07:07 Pulse 88 09/15/23 07:07 Resp 20 09/15/23 07:07 BP 141/65 H 09/15/23 07:07 Pulse Ox 95 09/15/23 07:07 O2 Del Method Room Air 09/15/23 07:07 O2 Flow Rate 2 09/11/23 07:35 FiO2 25 09/04/23 17:00 BMI result Body Mass Index 30.8 Gen: in no acute distress HEENT: has bilateral heraing loss Neck: supple, RIJ HD catheter Lungs: air entry diminshed ,no rales or wheezing Heart: regular rate and rhythm. Abd: soft, non-tender, non-distended Ext: no edema Skin: no cyanosis or edema . Neuro: alert and oriented x3, no focal findings except hearing loss as above Psych: appropriate affect Objective Data Active Medications Acetaminophen (Acetaminophen 325 Mg Tablet) 650 mg PO Q4H PRN PRN Reason: Pain, Mild (Pain Scale 1-3) Artificial Tears (Artificial Tears 15 Ml Drops) 2 drop EYE-BOTH Q4H PRN PRN Reason: Dry Eyes Last Admin: 08/29/23 08:33 Dose: 2 drop Documented By: ESTEFANIA Bupropion HCl (Bupropion Hcl Xl 150 Mg Tab.Er.24h) 150 mg PO DAILY [facility] Last Admin: 09/15/23 10:17 Dose: 150 mg Documented By: ARACELI Carvedilol (Carvedilol 25 Mg Tablet) 25 mg PO BID [facility]; Protocol Last Admin: 09/15/23 10:17 Dose: 25 mg Documented By: ARACELI Dextrose (Dextrose 50 % 25 Gm/50 Ml Syringe) 25 gm IVPUSH Q15M PRN PRN Reason: per Hypoglycemia Standing Ord. Last Admin: 08/21/23 13:27 Dose: 25 gm Documented By: HAROON Glucose (Glucose Gel 15 Gm Gel..Gram.) 15 gm PO Q15M PRN PRN Reason: per Hypoglycemia Standing Ord. Last Admin: 08/19/23 16:40 Dose: 15 gm Documented By: AVRIL Heparin Sodium (Porcine) (Heparin Sodium,Porcine 5,000 Unit/Ml Vial) 5,000 unit SUBCUT Q8H [facility] Last Admin: 09/07/23 17:45 Dose: 5,000 unit Documented By: TAMICA Ceftriaxone Sodium 2 gm/ (Sodium Chloride) 50 mls @ 100 mls/hr IV Q24H [facility] Last Infusion: 09/15/23 06:20 Dose: Infused Documented By: MOLLY Lidocaine (Lidocaine 4 % Patch Adh..Patch) 2 patch TRANSDERMA DAILY [facility]; Protocol Last Admin: 09/15/23 10:18 Dose: Not Given Documented By: ARACELI Non-Admin Reason: Patient Refused Nystatin (Nystatin Powder 15 Gm Bottle) 1 appl TOPICAL BID [facility]; Protocol Last Admin: 09/15/23 10:18 Dose: Not Given Documented By: ARACELI Non-Admin Reason: Patient Refused Ondansetron HCl (Ondansetron Hcl 4 Mg/2 Ml Vial) 4 mg IVPUSH Q6H PRN PRN Reason: Nausea and Vomiting Last Admin: 09/14/23 10:23 Dose: 4 mg Documented By: NARINDER Prednisone (Prednisone 10 Mg Tablet) 10 mg PO DAILY [facility] Last Admin: 09/15/23 10:17 Dose: 10 mg Documented By: ARACELI Tramadol HCl (Tramadol Hcl 50 Mg Tablet) 50 mg PO Q6H PRN PRN Reason: Pain severe Last Admin: 09/14/23 19:32 Dose: 50 mg Documented By: MOLLY Labs 09/14/23 04:58 09/15/23 07:37 Labs: Laboratory Results - last 24 hr 09/15/23 07:37 Hold Purple Top SEE NOTE Anion Gap 18 Estim Creat Clear Calc 18.2 Estimated GFR 15 Random Glucose 80 Calcium 9.1 Assessment and Plan (1) Hearing loss: Status: Acute (2) BRE (acute kidney injury): Status: Acute Assessment and Plan: Day 28: 73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 needs renal biopsy-will try to schedule for tomorrow if possible. 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 consulted Neuro, no MRI evidence of sarcoid involvement. did not get any aminoglycosides in ICU. got high-dose steroids in ICU for adrenal insufficiency of septic shock. continue ceftriaxone as above. hx AF/RVR acute HFrEF NSTEMI, likely demand - TTE 08/19/23: 1. Moderate to severe reduction LV ejection fraction with LVEF of 30-35% with impaired relaxation filling pattern 2. Mild mitral calcification and calcific aortic valve changes noted with cardiac valvular Dopplers within normal limits 3. No gross pericardial effusion - EKG, Cardiology consulted, switched amlodipine to carvedilol . Eventually to consider valsartan pending resolution/stabilization of renal issues. Cardiology follow-up and outpt ischemic workup. Will also need to be on apixaban after renal biopsy dysphagia- NDD3 diet + nectar-thick liquids; MBSS showed subglottic aspiration with thin liquids. RA/sarcoidosis- transitioned back to regular dose of prednisone 10 mg daily. mood disorder- bupropion. VTE ppx- hold UFH in case of renal biopsy. Eventually put on apixaban for CVA prevention given AF. dispo- STR recommended but pt declines. She cites having enough family support and equipment at home. patient requires continued inpatient hospitalization for the following reasons: bre workup renal biopsy,dialysis placement.possible sensory neuro hearing loss, R>L/and ?from invasive pneumococcal disease- need iv antibiotics . Quality Stroke Does the patient have a stroke diagnosis?: No VTE Prior VTE?: No VTE Risk Level:: Medical - moderate - high VTE Device Contraindication: N/A - Device Ordered VTE Drug Contraindication: N/A - Med Ordered
[2023-09-15 11:22] LABS: Kappa Light Chain, Free Serum 47.9 mg/L (3.3-19.4); Kappa/Lambda Lt Ch Free Ratio 1.98 (0.26-1.65); Lambda Light Chain, Free Serum 24.2 mg/L (5.7-26.3)
[2023-09-15 12:29] VITALS: BP 141/65; PULSE 88; O2SAT 95
--- NOTE | 2023-09-15 15:08 | P.PNNP_ITS ---
Subjective Subjective Date of Service: 09/15/23 Interval history: Seen and examined, notes incr UOP Communication via whiteboard given hearing loss Physical Exam 2 Vital Signs: Vital Signs: Last Vital Signs Temp 98.3 F 09/15/23 07:07 Pulse 88 09/15/23 12:29 Resp 20 09/15/23 07:07 BP 141/65 H 09/15/23 12:29 Pulse Ox 95 09/15/23 12:29 O2 Del Method Room Air 09/15/23 07:07 O2 Flow Rate 2 09/11/23 07:35 FiO2 25 09/04/23 17:00 BMI result Body Mass Index 30.8 Const: Other: Awake alert no acute distress General: no acute distress Nutritional Appearance: Edematous O rientation/consciousness: patient oriented x3 HEENT: Ears: hearing grossly impaired Eyes: Sclerae: sclerae normal EOM: EOMs intact bilaterally Neck: Other: Left IJ line Resp: Other: Clear to auscultation bilaterally no rales rhonchi or wheezes Effort & Inspection: normal respiratory effort, abnormal respiratory pattern and no respiratory distress Auscultation: clear to auscultation bilaterally, crackles ( mild bilateral), rales (Bilateral) and diminished lung sounds Cardio: Other: No S4; positive S1-S2; no S3 murmurs rubs or gallops Jugular venous distension: no JVD Heart sounds: S1 normal heart sound present, S2 normal heart sound present, no gallops, no murmurs and no rubs GI: Other: Soft nontender nondistended normoactive bowel sounds Percussion: Yes normal to percussion Auscultation: normal bowel sounds : External Female Exam: normal external appearance Skin: Other: appreciable scattered purpura Neuro: General: patient oriented x3 Extrem: Other: No edema bilaterally General: No edema Psych: Other: unable to assess Objective Data Labs 09/14/23 04:58 09/15/23 07:37 Labs: Laboratory Results - last 24 hr 09/10/23 09/15/23 15:38 07:37 Hold Purple Top SEE NOTE Sodium 134 L Potassium 4.1 D Chloride 97 Carbon Dioxide 23 Anion Gap 18 BUN 49 H Creatinine 3.05 H Estim Creat Clear Calc 18.2 Estimated GFR 15 Random Glucose 80 Calcium 9.1 Free [place] LC, Quant 47.9 H Free Lambda LC, Quant 24.2 Free [place]/Lambda Ratio 1.98 H Microbiology Microbiology Results: Microbiology 09/03/23 21:22 Blood - Venous Blood Culture - Final No growth after 5 days. 09/03/23 21:22 Blood - Venous Blood Culture - Final No growth after 5 days. 09/03/23 22:53 Sputum - Suctioned Gram Stain - Final 09/03/23 22:53 Sputum - Suctioned Sputum Culture - Final Laura albicans 09/01/23 06:30 Blood - Venous Blood Culture - Final No growth after 5 days. 09/01/23 06:30 Blood - Venous Blood Culture - Final No growth after 5 days. 08/26/23 13:39 Blood - Venous Blood Culture - Final No growth after 5 days. 08/26/23 13:39 Blood - Venous Blood Culture - Final No growth after 5 days. 08/18/23 21:45 Blood - Venous Blood Culture - Final Streptococcus pneumoniae 08/18/23 20:17 Blood - Venous Blood Culture - Final Streptococcus pneumoniae Procedures Date of Service Date of Service: 09/15/23 Assessment & Plan Assessment and plan (1) BRE (acute kidney injury): Status: Acute Plan DDX includes ATN, but has underlying MGUS, low complements so ddx includes myeloma kidney, cryoglobulinemia. Doubt lupus nephritis or mixed connective tissue disease but possible given RA; postinfectious GN possible. BRE HD dpe now x severeal weeks and typically expect renal func to improve if it were simply ATN REC: recheck renal labs in am and if SCr cont incr then prceed with kidney Bx; avoid NToxins; cont HD support as need --next HD tentatively for Time Spent With Patient Time: Total time managing care of this patient today ____ minutes. Progress Note: Quality Stroke Does the patient have a stroke diagnosis?: No
[2023-09-15 15:27] VITALS: BP 140/68; PULSE 85; RESP 20; TEMP 36.7; O2SAT 95
--- NOTE | 2023-09-15 16:21 | MHC.SPEECHCO ---
Per RN, Pt refusing modified meals, Family is bringing in non-compliant liquids (Coffee [place]). Unable to see Pt d/t time constraints, recommend attempt treatment with a personal amplification device at next follow-up.
[2023-09-15 19:02] VITALS: BP 164/72; PULSE 90; RESP 20; TEMP 36.4; O2SAT 96
[2023-09-15] MEDS: Nystatin Powder 15 GM BOTTLE 1 APPL TOPICAL (20:11)
[2023-09-16] VITALS (9 sets, daily range): BP systolic 128–173; BP diastolic 65–84; PULSE 82–89; RESP 13–20; TEMP 36.4–36.6; O2SAT 91–97; BMI 30.8
[2023-09-16] MEDS: cefTRIAXone sodium 2 GM in 0.9 % Sodium Chloride 50 ML IV (04:54)
[2023-09-16] MEDS: predniSONE 10 MG TABLET PO (08:15)
[2023-09-16] MEDS: buPROPion HCl XL 150 MG TAB.ER.24H PO (08:15)
[2023-09-16] MEDS: carvediloL 25 MG TABLET PO ×2 (08:15→20:35)
--- NOTE | 2023-09-16 13:10 | PC.NURSE ---
MD Enamorado and Speech therapist made aware pt refuses to take medication crushed with thick liquids or apple sauce, insists on taking medication whole with water. Education provided to patent regarding risks of aspiration using white board. Pt states she understands the risks but feels more comfortable with taking medications this way.
--- NOTE | 2023-09-16 14:44 | HO.PM.IMPN ---
Subjective Subjective Date of Service: 09/16/23 Interval History: denies new c/o going for renal biopsy Communication via whiteboard given hearing loss Review of Systems Review of Systems: Yes all other systems are reviewed and are negative Physical Exam Vital Signs: Vital Signs: Last Vital Signs Temp 97.8 F 09/16/23 13:48 Pulse 82 09/16/23 13:59 Resp 14 09/16/23 13:59 BP 147/75 H 09/16/23 13:59 Pulse Ox 91 L 09/16/23 13:59 O2 Del Method Room Air 09/16/23 13:59 O2 Flow Rate 2 09/11/23 07:35 FiO2 25 09/04/23 17:00 BMI result Body Mass Index 30.8 Gen: in no acute distress Neck: supple, RIJ HD catheter Lungs: air entry diminshed ,no rales or wheezing Heart: [id number]. Abd: soft, nt,nd ,bs present renal biopsy site -right lower back -no swelling or pain or erythema . Skin: no cyanosis or edema . Neuro: alert and oriented x3, no focal findings except hearing loss as above Psych: appropriate affect Objective Data Active Medications Acetaminophen (Acetaminophen 325 Mg Tablet) 650 mg PO Q4H PRN PRN Reason: Pain, Mild (Pain Scale 1-3) Artificial Tears (Artificial Tears 15 Ml Drops) 2 drop EYE-BOTH Q4H PRN PRN Reason: Dry Eyes Last Admin: 08/29/23 08:33 Dose: 2 drop Documented By: ESTEFANIA Bupropion HCl (Bupropion Hcl Xl 150 Mg Tab.Er.24h) 150 mg PO DAILY [facility] Last Admin: 09/16/23 08:15 Dose: 150 mg Documented By: ARACELI Carvedilol (Carvedilol 25 Mg Tablet) 25 mg PO BID [facility]; Protocol Last Admin: 09/16/23 08:15 Dose: 25 mg Documented By: ARACELI Dextrose (Dextrose 50 % 25 Gm/50 Ml Syringe) 25 gm IVPUSH Q15M PRN PRN Reason: per Hypoglycemia Standing Ord. Last Admin: 08/21/23 13:27 Dose: 25 gm Documented By: HAROON Glucose (Glucose Gel 15 Gm Gel..Gram.) 15 gm PO Q15M PRN PRN Reason: per Hypoglycemia Standing Ord. Last Admin: 08/19/23 16:40 Dose: 15 gm Documented By: AVRIL Guaifenesin (Guaifenesin 200 Mg/10 Ml 10 Ml Liquid) 10 ml PO Q4H PRN PRN Reason: cough Heparin Sodium (Porcine) (Heparin Sodium,Porcine 5,000 Unit/Ml Vial) 5,000 unit SUBCUT Q8H [facility] Last Admin: 09/07/23 17:45 Dose: 5,000 unit Documented By: TAMICA Ceftriaxone Sodium 2 gm/ (Sodium Chloride) 50 mls @ 100 mls/hr IV Q24H [facility] Last Infusion: 09/16/23 05:30 Dose: Infused Documented By: FRANCOIS Lidocaine (Lidocaine 4 % Patch Adh..Patch) 2 patch TRANSDERMA DAILY [facility]; Protocol Last Admin: 09/16/23 08:25 Dose: Not Given Documented By: ARACELI Non-Admin Reason: Patient Refused Nystatin (Nystatin Powder 15 Gm Bottle) 1 appl TOPICAL BID [facility]; Protocol Last Admin: 09/16/23 08:24 Dose: Not Given Documented By: ARACELI Non-Admin Reason: Patient Refused Ondansetron HCl (Ondansetron Hcl 4 Mg/2 Ml Vial) 4 mg IVPUSH Q6H PRN PRN Reason: Nausea and Vomiting Last Admin: 09/14/23 10:23 Dose: 4 mg Documented By: NARINDER Prednisone (Prednisone 10 Mg Tablet) 10 mg PO DAILY [facility] Last Admin: 09/16/23 08:15 Dose: 10 mg Documented By: ARACELI Labs 09/14/23 04:58 09/15/23 07:37 Assessment and Plan (1) Hearing loss: Status: Acute (2) BRE (acute kidney injury): Status: Acute Assessment and Plan: Day 29: 73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 consulted Neuro, no MRI evidence of sarcoid involvement. did not get any aminoglycosides in ICU. got high-dose steroids in ICU for adrenal insufficiency of septic shock. continue ceftriaxone as above. hx AF/RVR acute HFrEF NSTEMI, likely demand - TTE 08/19/23: 1. Moderate to severe reduction LV ejection fraction with LVEF of 30-35% with impaired relaxation filling pattern 2. Mild mitral calcification and calcific aortic valve changes noted with cardiac valvular Dopplers within normal limits 3. No gross pericardial effusion - EKG, Cardiology consulted, switched amlodipine to carvedilol . Eventually to consider valsartan pending resolution/stabilization of renal issues. Cardiology follow-up and outpt ischemic workup. Will also need to be on apixaban after renal biopsy dysphagia- NDD3 diet + nectar-thick liquids; MBSS showed subglottic aspiration with thin liquids. RA/sarcoidosis- transitioned back to regular dose of prednisone 10 mg daily. mood disorder- bupropion. VTE ppx- hold UFH in case of renal biopsy. Eventually put on apixaban for CVA prevention given AF. dispo- STR recommended but pt declines. She cites having enough family support and equipment at home. patient requires continued inpatient hospitalization for the following reasons: bre workup renal biopsy,dialysis placement.possible sensory neuro hearing loss, R>L/and ?from invasive pneumococcal disease- need iv antibiotics . Quality Stroke Does the patient have a stroke diagnosis?: No VTE Prior VTE?: No VTE Risk Level:: Medical - moderate - high VTE Device Contraindication: N/A - Device Ordered VTE Drug Contraindication: N/A - Med Ordered
--- NOTE | 2023-09-16 14:45 | MHC.CM.PN ---
per rounds pt not ready for dc pt to have a biopsy
--- NOTE | 2023-09-16 14:51 | MHC.CLN ---
F/U NPO TODAY FOR RENAL CORE BIOPSY. PRIOR DIET=CHOPPED WITH NECTAR THICK LIQUIDS. MAGIC CUP TID PROVIDES 870 KCALS, 27 G PROTEIN. PO INTAKE MOST MEALS 25%. RECEIVES HD SUPPORT NEEDED. LAST HD 09/13. REVIEW OF WEIGHT HX SHOWS VARIABLE WEIGHTS, WITH WEIGHT LOSS X 30 DAYS APPROX 5%. SKIN WITH NO OPEN AREAS. FOLLOW FOR DIET ADVANCEMENT, INTAKE, AND WEIGHTS. SEE CLINICAL NUTRITION ASSESSMENT 09/16/23.
--- NOTE | 2023-09-16 16:12 | P.PNNP_ITS ---
Subjective Subjective Date of Service: 09/16/23 Interval history: Seen and examined, events Physical Exam 2 Vital Signs: Vital Signs: Last Vital Signs Temp 97.8 F 09/16/23 15:36 Pulse 88 09/16/23 15:36 Resp 18 09/16/23 15:36 BP 173/81 H 09/16/23 15:36 Pulse Ox 97 09/16/23 15:36 O2 Del Method Room Air 09/16/23 15:36 O2 Flow Rate 2 09/11/23 07:35 FiO2 25 09/04/23 17:00 BMI result Body Mass Index 30.8 Const: Other: Awake alert no acute distress General: no acute distress Nutritional Appearance: overweight and Edematous Orientation/consciousness: patient oriented x3 HEENT: Head: Yes normal to inspection, Yes normocephalic and Yes atraumatic Ears: hearing grossly impaired Face and sinus: Yes normal facial exam M outh: Normal oral and palatal mucosa present Teeth and gingiva: dentition normal Eyes: General: appearance normal, both eyes and all related structures S clerae: sclerae normal Pupils: Equal, round and reactive pupils present E OM: EOMs intact bilaterally Neck: Other: Left IJ line Neck: Yes normal visual inspection, Yes full ROM, Yes no lymphadenopathy, Yes no meningeal signs, Yes trachea midline, Yes supple and Yes no JVD Chest: Chest palpation & inspection: normal inspection of the chest and normal palpation of entire chest wall Resp: Other: Clear to auscultation bilaterally no rales rhonchi or wheezes Effort & Inspection: normal respiratory effort, abnormal respiratory pattern and no respiratory distress Auscultation: clear to auscultation bilaterally, crackles ( mild bilateral), rales (Bilateral) and diminished lung sounds Cardio: Other: No S4; positive S1-S2; no S3 murmurs rubs or gallops Jugular venous distension: no JVD Rate: regular rate and tachycardic Rhythm: regular rhythm Heart sounds: S1 normal heart sound present, S2 normal heart sound present, no gallops, no murmurs and no rubs GI: Other: Soft nontender nondistended normoactive bowel sounds Inspection: Yes normal to inspection, No Abdominal wall edema and No distended Palpation (GI): Soft to palpation, not firm, nontender, no guarding, not rigid and Other GI palpation findings present ( Nontender) P ercussion: Yes normal to percussion Auscultation: normal bowel sounds : General: Yes no CVA tenderness External Female Exam: normal external appearance Back/Spine/Pelvis: Back: no CVA tenderness Skin: Other: appreciable scattered purpura General skin exam: no rashes or lesions noted Neuro: Other: She is alert and awake with normal spontaneity of speech fluency comprehension and depressed affect. She did not hear what I said but was able to communicate with written material. Face was symmetrical. There was no nystagmus. Visual sinha were full. Trophic skin changes were noted and hands in feet. Deep tendon reflexes were absent. General: patient oriented x3 and no meningeal signs Cranial nerves: Yes Equal, round and reactive pupils present Extrem: Other: No edema bilaterally General: No edema Psych: Other: unable to assess Appearance: grossly normal Objective Data Labs 09/14/23 04:58 09/15/23 07:37 Microbiology Microbiology Results: Microbiology 09/03/23 21:22 Blood - Venous Blood Culture - Final No growth after 5 days. 09/03/23 21:22 Blood - Venous Blood Culture - Final No growth after 5 days. 09/03/23 22:53 Sputum - Suctioned Gram Stain - Final 09/03/23 22:53 Sputum - Suctioned Sputum Culture - Final Laura albicans 09/01/23 06:30 Blood - Venous Blood Culture - Final No growth after 5 days. 09/01/23 06:30 Blood - Venous Blood Culture - Final No growth after 5 days. 08/26/23 13:39 Blood - Venous Blood Culture - Final No growth after 5 days. 08/26/23 13:39 Blood - Venous Blood Culture - Final No growth after 5 days. 08/18/23 21:45 Blood - Venous Blood Culture - Final Streptococcus pneumoniae 08/18/23 20:17 Blood - Venous Blood Culture - Final Streptococcus pneumoniae Procedures Date of Service Date of Service: 09/16/23 Assessment & Plan Assessment and plan (1) BRE (acute kidney injury): Status: Acute Plan DDX includes ATN, but has underlying MGUS, low complements so ddx includes myeloma kidney, cryoglobulinemia. Doubt lupus nephritis or mixed connective tissue disease but possible given RA; postinfectious GN possible. BRE HD dependent for now x severeal weeks and typically expect renal func to improve if it were simply ATN REC: Kidney Bx today; avoid NToxins; cont HD support as need --next HD tentatively for ; d/c planning Time Spent With Patient Time: Total time managing care of this patient today ____ minutes. Progress Note: Quality Stroke Does the patient have a stroke diagnosis?: No
[2023-09-16] MEDS: Acetaminophen 325 MG TABLET 650 MG PO (16:34)
--- NOTE | 2023-09-16 17:14 | MHC.SL.SWA ---
Risk of Aspiration Due to: Lethargy History of Pneumonia Hx of Recent Extubation Dysphasia Diet Status: No change Recommend CONTINUE on CHOPPED/ADVANCED (NDD3) diet and NECTAR THICK liquids. Speech therapy to continue with trials of thin liquid by teaspoon or cup, continued assessment for potential upgrade to thin liquids if appropriate given pt?s medical status. Ad interim, pt is recommended a [place] Water Protocol for comfort and to promote hydration. Per protocol, pt to be permitted water between meals with strict aspiration precautions and nursing or JUNIOR STAFF ACCOUNTANT supervision. Oral care to be provided after meals/before presentation of water. Water to be given by teaspoon or individual cup sip, with cues for volitional throat clear after sip. Following strategies are recommended to maximize feeding safety: -Liquids via teaspoon or individual cup sips -Avoid the use of straws -Moisten foods with sauces and gravies -Avoid sticky or hard foods; mixed consistencies (i.e. thin broth soup with solid ingredients) -Small bites, one bite at a time -Ensure oral cavity is clear before giving next bite -Follow bite with dry swallow then sip of liquid -Maintain 90 degree position during PO intake and for at least 30-45 minutes afterwards Liquid Consistency and Strategies for Safe Swallow: Liquid Intake Recommendation: [place] Thick Liquid Intake Strategies: Small Sips No Straws Double Swallow Solid Food Consistency: Dietary Recommendations: Chopped/Advanced (NDD3) Additional Modifications to Solid Foods: Oral Medication Intake: Crushed with Puree Please contact the pharmacy regarding appropriate crushable or liquid drug formulations that are available whenever modified delivery is recommended. Compensatory Strategies and Precautions to be Taken for Safe Swallow: Sitting Upright (90 deg) Double Swallow No Straw Liquids from Cup Liquids from Spoon Small Bites and Sips Alternate Liquids/Solids Rate of Ingestion Change Avoid Specific Foods Supervision While Eating and Drinking for Safe Swallow: Total Supervision (1:1) Foods to Avoid: Avoid sticky or hard foods; mixed consistencies (i.e. thin broth soup with solid ingredients) Swallowing Recommended Treatments: Compens. Strategy Educat. Recommendation for Speech: Inpatient Speech Therapy Speech Therapy through Rehab Facility Modified Barium Swallow Study - Outpatient Comment: Intake Recommendations: Route: PO Diet Grade: CHOPPED/ADVANCED (NDD3) Liquid Consistencies: [place] Post-Study Functional Oral Intake Scale (FOIS): 5- Total oral intake of multiple consistencies requiring special preparation Evidence of penetration above the vocal folds with intake of nectar thick liquid, increased to the level of the vocal folds with contrast coating the airway on thin liquid. Pt w/ decreased sensation, did not elicit a spontaneous cough in response to contrast entering the airway. Because residuals were likely to pass below the vocal folds, pt was asked to produce a volitional cough, which ejected most contrast from the airway. Epiglottis was retroflexed with partial inversion, leading to increased vallecular retention as well, particularly with hard solid. Pharyngeal retention mostly cleared with an additional bite of puree. Recommend UPGRADE to CHOPPED/ADVANCED (NDD3) diet, start on NECTAR THICK liquids for the time being given pt's recurrent aspiration events, recent ICU stay and extubation, and waxing/waning mentation. Speech therapy to continue with trials of thin liquid by teaspoon or cup, continued assessment for potential upgrade to thin liquids if appropriate given pt?s medical status. Ad interim, pt is recommended a [place] Water Protocol for comfort and to promote hydration. Per protocol, pt to be permitted water between meals with strict aspiration precautions and nursing or JUNIOR STAFF ACCOUNTANT supervision. Oral care to be provided after meals/before presentation of water. Water to be given by teaspoon or individual cup sip, with cues for volitional throat clear after sip. Following strategies are recommended to maximize feeding safety: -Liquids via teaspoon or individual cup sips -Avoid the use of straws -Moisten foods with sauces and gravies -Avoid sticky or hard foods; mixed consistencies (i.e. thin broth soup with solid ingredients) -Small bites, one bite at a time -Ensure oral cavity is clear before giving next bite -Follow bite with dry swallow then sip of liquid -Maintain 90 degree position during PO intake and for at least 30-45 minutes afterwards Therapy Recommendations: Therapy will be continued Prognosis for Improvement: The prognosis for the patient to meet nutritional needs by mouth is fair based on degree of impairment, stimulability for treatment. Title Curator Goals: ? The patient will tolerate the least restrictive diet with a safe/efficient swallow to maintain adequate nutrition and hydration. ? The patient and/or family will participate in further education for swallowing goals. Short Term Goals: ? Diet - The patient will tolerate a modified dysphagia diet with nectar thick liquids without signs or symptoms of penetration/aspiration 100% of the time. - The patient will participate in therapeutic PO trials (thin liquid) with the JUNIOR STAFF ACCOUNTANT. ? Guidelines - The patient will comply with/recall the following guidelines/strategies 100% of the time with minimal cuing: [place]-thick Liquid, Bolus Volume Change, Rate of Ingestion Change, Effortful Swallow (used during PO intake), Cough Volitional, No Straws. ? Education - The patient, family, caregiver will verbalize/demonstrate understanding of the results of this evaluation, the above recommendations, and the swallowing guidelines. Frequency/Duration: M-F during inpatient stay Date Range for Service Req: Recommend continuation of speech therapy for the treatment of dysphagia, during hospitalization and post-discharge, with repeat-MBSS when appropriate. Timeline to reassess: 3 months Washer Engineer Clinican/Clinical Fellow: No Supervisory Statement: I have reviewed and agree with the student/clinical fellow's documentation: N/A Speech Language Pathologist: Priscilla Chavez M.A., CCC-JUNIOR STAFF ACCOUNTANT
[2023-09-16] MEDS: traMADoL HCL 50 MG TABLET PO (18:04)
[2023-09-17 03:04] VITALS: BP 136/65; PULSE 83; RESP 18; TEMP 36.6; O2SAT 95
[2023-09-17] MEDS: traMADoL HCL 50 MG TABLET PO ×2 (03:04→12:21)
--- NOTE | 2023-09-17 03:38 | PC.NURSE ---
Pt refused to take bedtime medications with nectar thick liquids but with thin liquids (water). This RN educated pt the importance of being complainant with diet and aspiration precautions. Pt did well when taken PO bedtime medications with thin liquid (water). Pt was able to take small sips, clear throat, and swallow medication with no issues. MD aware of pt's being noncompliant with diet. Will continue to monitor's pts diet and educate the importance of being complaint with diet and aspiration precautions.
[2023-09-17 09:06] VITALS: BP 143/75; PULSE 94; RESP 14; TEMP 36; O2SAT 96
[2023-09-17] MEDS: buPROPion HCl XL 150 MG TAB.ER.24H PO (09:13)
[2023-09-17] MEDS: predniSONE 10 MG TABLET PO (09:13)
[2023-09-17] MEDS: Lidocaine 4 % Patch ADH..PATCH 2 PATCH TRANSDERMA (09:13)
[2023-09-17] MEDS: carvediloL 25 MG TABLET PO ×2 (09:13→20:11)
[2023-09-17] MEDS: cefTRIAXone sodium 2 GM in 0.9 % Sodium Chloride 50 ML IV (09:19)
[2023-09-17 11:07] LABS: Hematocrit 25.5 % (37.0-47.0); Hemoglobin 8.4 g/dl (12.0-16.0)
[2023-09-17 11:40] LABS: Blood Urea Nitrogen 20 mg/dL (9-16); Calcium 8.8 mg/dL (8.4-10.2); Creatinine Clr Calc Pharmacy 43.7; Estimated Glomerular Filt Rate 41; Glucose Random 80 mg/dL (60-115)
[2023-09-17 11:48] LABS: Anion Gap 15 (12-20); Carbon Dioxide 28 mmol/L (22-29); Chloride 95 mmol/L (96-108); Potassium 2.9 mmol/L (3.3-5.1); Sodium 135 mmol/L (135-145)
[2023-09-17 12:39] VITALS: BP 143/75; PULSE 94; O2SAT 96
--- NOTE | 2023-09-17 13:37 | P.PNIM_ITS ---
Subjective Subjective Date of Service: 09/17/23 Interval History: denies new c/o some cough no sob Review of Systems as above. Physical Exam 2 Vital Signs: Vital Signs: Last Vital Signs Temp 96.8 F 09/17/23 09:06 Pulse 94 09/17/23 12:39 Resp 14 09/17/23 09:06 BP 143/75 H 09/17/23 12:39 Pulse Ox 96 09/17/23 12:39 O2 Del Method Room Air 09/17/23 09:06 O2 Flow Rate 2 09/11/23 07:35 FiO2 25 09/04/23 17:00 BMI result Body Mass Index 30.8 Gen: in no acute distress Neck: supple, RIJ HD catheter Lungs: air entry diminshed ,no rales or wheezing Heart: [id number]. Abd: soft, nt,nd ,bs present renal biopsy site -right lower back -no swelling or pain or erythema . Skin: no cyanosis or edema . Neuro: alert and oriented x3, no focal findings except hearing loss as above Psych: appropriate affect Objective Data Active Medications Acetaminophen (Acetaminophen 325 Mg Tablet) 650 mg PO Q4H PRN PRN Reason: Pain, Mild (Pain Scale 1-3) Last Admin: 09/16/23 16:34 Dose: 650 mg Documented By: ARACELI Artificial Tears (Artificial Tears 15 Ml Drops) 2 drop EYE-BOTH Q4H PRN PRN Reason: Dry Eyes Last Admin: 08/29/23 08:33 Dose: 2 drop Documented By: ESTEFANIA Bupropion HCl (Bupropion Hcl Xl 150 Mg Tab.Er.24h) 150 mg PO DAILY [facility] Last Admin: 09/17/23 09:13 Dose: 150 mg Documented By: AMARI Carvedilol (Carvedilol 25 Mg Tablet) 25 mg PO BID [facility]; Protocol Last Admin: 09/17/23 09:13 Dose: 25 mg Documented By: AMARI Dextrose (Dextrose 50 % 25 Gm/50 Ml Syringe) 25 gm IVPUSH Q15M PRN PRN Reason: per Hypoglycemia Standing Ord. Last Admin: 08/21/23 13:27 Dose: 25 gm Documented By: HAROON Glucose (Glucose Gel 15 Gm Gel..Gram.) 15 gm PO Q15M PRN PRN Reason: per Hypoglycemia Standing Ord. Last Admin: 08/19/23 16:40 Dose: 15 gm Documented By: AVRIL Guaifenesin (Guaifenesin 200 Mg/10 Ml 10 Ml Liquid) 10 ml PO Q4H PRN PRN Reason: cough Guaifenesin (Guaifenesin 200 Mg/10 Ml 10 Ml Liquid) 10 ml PO Q4H PRN PRN Reason: Cough Heparin Sodium (Porcine) (Heparin Sodium,Porcine 5,000 Unit/Ml Vial) 5,000 unit SUBCUT Q8H [facility] Last Admin: 09/07/23 17:45 Dose: 5,000 unit Documented By: TAMICA Ceftriaxone Sodium 2 gm/ (Sodium Chloride) 50 mls @ 100 mls/hr IV Q24H [facility] Last Infusion: 09/17/23 09:54 Dose: Infused Documented By: AMARI Lidocaine (Lidocaine 4 % Patch Adh..Patch) 2 patch TRANSDERMA DAILY [facility]; Protocol Last Admin: 09/17/23 09:13 Dose: 2 patch Documented By: AMARI Nystatin (Nystatin Powder 15 Gm Bottle) 1 appl TOPICAL BID [facility]; Protocol Last Admin: 09/17/23 09:25 Dose: Not Given Documented By: AMARI Non-Admin Reason: pt declined Ondansetron HCl (Ondansetron Hcl 4 Mg/2 Ml Vial) 4 mg IVPUSH Q6H PRN PRN Reason: Nausea and Vomiting Last Admin: 09/14/23 10:23 Dose: 4 mg Documented By: NARINDER Prednisone (Prednisone 10 Mg Tablet) 10 mg PO DAILY [facility] Last Admin: 09/17/23 09:13 Dose: 10 mg Documented By: AMARI Tramadol HCl (Tramadol Hcl 50 Mg Tablet) 50 mg PO Q6H PRN PRN Reason: Pain, Mild (Pain Scale 1-3) Last Admin: 09/17/23 12:21 Dose: 50 mg Documented By: RAOUL Labs 09/17/23 10:03 09/17/23 10:03 Labs: Laboratory Results - last 24 hr 09/17/23 10:03 Anion Gap 15 Estim Creat Clear Calc 43.7 Estimated GFR 41 Random Glucose 80 Calcium 8.8 Assessment and Plan (1) Hearing loss: Status: Acute (2) BRE (acute kidney injury): Status: Acute Assessment and Plan: Day 30: 73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 consulted Neuro, no MRI evidence of sarcoid involvement. did not get any aminoglycosides in ICU. got high-dose steroids in ICU for adrenal insufficiency of septic shock. continue ceftriaxone as above. hx AF/RVR acute HFrEF NSTEMI, likely demand - TTE 08/19/23: 1. Moderate to severe reduction LV ejection fraction with LVEF of 30-35% with impaired relaxation filling pattern 2. Mild mitral calcification and calcific aortic valve changes noted with cardiac valvular Dopplers within normal limits 3. No gross pericardial effusion - EKG, Cardiology consulted, switched amlodipine to carvedilol . Eventually to consider valsartan pending resolution/stabilization of renal issues. Cardiology follow-up and outpt ischemic workup. Will also need to be on apixaban after renal biopsy dysphagia- NDD3 diet + nectar-thick liquids; MBSS showed subglottic aspiration with thin liquids. RA/sarcoidosis- transitioned back to regular dose of prednisone 10 mg daily. mood disorder- bupropion. VTE ppx- hold UFH in case of renal biopsy. Eventually put on apixaban for CVA prevention given AF. dispo- STR recommended but pt declines. She cites having enough family support and equipment at home. patient requires continued inpatient hospitalization for the following reasons: bre workup renal biopsy,dialysis placement.possible sensory neuro hearing loss, R>L/and ?from invasive pneumococcal disease- need iv antibiotics . Quality Stroke Does the patient have a stroke diagnosis?: No VTE Prior VTE?: No VTE Risk Level:: Medical - moderate - high VTE Device Contraindication: N/A - Device Ordered VTE Drug Contraindication: N/A - Med Ordered
--- NOTE | 2023-09-17 14:13 | MHC.SL.SWA ---
Speech Pathologist Impression: Risk of Aspiration Due to: Lethargy History of Pneumonia Hx of Recent Extubation Dysphasia Diet Status: Recommend CONTINUE on CHOPPED/ADVANCED (NDD3) diet and NECTAR THICK liquids. Speech therapy to continue with trials of thin liquid by teaspoon or cup, continued assessment for potential upgrade to thin liquids if appropriate given pt?s medical status. Ad interim, pt is recommended a [place] Water Protocol for comfort and to promote hydration. Per protocol, pt to be permitted water between meals with strict aspiration precautions and nursing or EDUCATIONAL RECRUITER supervision. Oral care to be provided after meals/before presentation of water. Water to be given by teaspoon or individual cup sip, with cues for volitional throat clear after sip. Following strategies are recommended to maximize feeding safety: -Liquids via teaspoon or individual cup sips -Avoid the use of straws -Moisten foods with sauces and gravies -Avoid sticky or hard foods; mixed consistencies (i.e. thin broth soup with solid ingredients) -Small bites, one bite at a time -Ensure oral cavity is clear before giving next bite -Follow bite with dry swallow then sip of liquid -Maintain 90 degree position during PO intake and for at least 30-45 minutes afterwards Liquid Consistency and Strategies for Safe Swallow: Liquid Intake Recommendation: [place] Thick Liquid Intake Strategies: Small Sips No Straws Double Swallow Solid Food Consistency: Dietary Recommendations: Chopped/Advanced (NDD3) Additional Modifications to Solid Foods: Oral Medication Intake: Crushed with Puree Please contact the pharmacy regarding appropriate crushable or liquid drug formulations that are available whenever modified delivery is recommended. Compensatory Strategies and Precautions to be Taken for Safe Swallow: Sitting Upright (90 deg) Double Swallow No Straw Liquids from Cup Liquids from Spoon Small Bites and Sips Alternate Liquids/Solids Rate of Ingestion Change Avoid Specific Foods Supervision While Eating and Drinking for Safe Swallow: Total Supervision (1:1) Foods to Avoid: Avoid sticky or hard foods; mixed consistencies (i.e. thin broth soup with solid ingredients) Swallowing Recommended Treatments: Compens. Strategy Educat. Recommendation for Speech: Inpatient Speech Therapy Speech Therapy through Rehab Facility Modified Barium Swallow Study - Outpatient Recommend referral to Audiology - Outpatient Comment: Patient seen around lunch time today for treatment. EDUCATIONAL RECRUITER then learned patient had a few bites of lunch and did not want any more, and was asking for water from the Nurse. Water was present on patient's table. Nursing staff advised again that water is only under close supervision, can only be given after oral care, and should only be given between meals. Patient also advised of this by white board communication. However, patient was insistent in that moment of taking pill with water, which was allowed, with RN and EDUCATIONAL RECRUITER noting throat clearing and changed in vocal quality in patient after taking sips of water. Patient complained to EDUCATIONAL RECRUITER about diet, about not being able to drink water freely. EDUCATIONAL RECRUITER again reviewed the recommendations from MBSS study and rational for the diet, and the need for a repeat study in the future to advance diet. EDUCATIONAL RECRUITER then completed FFWT with patient, having patient do thorough oral care independently, followed by tsp sips then small cup sips of water. Patient also took ice chip in mouth, chewed and swallowed. Patient expressed relief in having water. EDUCATIONAL RECRUITER cued patient on swallows of water to cough and re-swallow (patient noted EDUCATIONAL RECRUITER yesterday had advised the same). Patient instructed in pharyngeal/base of tongue exercises: yawn/glottal plosives which patient completed and said I could do that several times a day. : Clinical Education Manager Clinican/Clinical Fellow: No Supervisory Statement: I have reviewed and agree with the student/clinical fellow's documentation: N/A Speech Language Pathologist: Marbella Paris M.A., [facility]EDUCATIONAL RECRUITER
[2023-09-17] MEDS: Potassium Chloride ER 20 MEQ TAB.ER.PRT PO (14:59)
[2023-09-17 15:02] VITALS: BP 134/64; PULSE 91; RESP 18; TEMP 36.3; O2SAT 96
--- NOTE | 2023-09-17 16:23 | PM.PNNEP ---
Subjective Subjective Date of Service: 09/17/23 Interval history: Seen and examined, events noted Physical Exam Vital Signs: Vital Signs: Last Vital Signs Temp 97.4 F 09/17/23 15:02 Pulse 91 09/17/23 15:02 Resp 18 09/17/23 15:02 BP 134/64 09/17/23 15:02 Pulse Ox 96 09/17/23 15:02 O2 Del Method Room Air 09/17/23 15:02 O2 Flow Rate 2 09/11/23 07:35 FiO2 25 09/04/23 17:00 BMI result Body Mass Index 30.8 Const: Other: Awake alert no acute distress General: no acute distress Nutritional Appearance: overweight and Edematous Orientation/consciousness: patient oriented x3 HEENT: Head: Yes normal to inspection, Yes normocephalic and Yes atraumatic Ears: hearing grossly impaired Face and sinus: Yes normal facial exam Mouth: Normal oral and palatal mucosa present Teeth and gingiva: dentition normal Eyes: General: appearance normal, both eyes and all related structures Sclerae: sclerae normal Pupils: Equal, round and reactive pupils present EOM: EOMs intact bilaterally Neck: Other: Left IJ line Neck: Yes normal visual inspection, Yes full ROM, Yes no lymphadenopathy, Yes no meningeal signs, Yes trachea midline, Yes supple and Yes no JVD Chest: Chest palpation & inspection: normal inspection of the chest and normal palpation of entire chest wall Resp: Other: Clear to auscultation bilaterally no rales rhonchi or wheezes Effort & Inspection: normal respiratory effort, abnormal respiratory pattern and no respiratory distress Auscultation: clear to auscultation bilaterally, crackles ( mild bilateral), rales (Bilateral) and diminished lung sounds Cardio: Other: No S4; positive S1-S2; no S3 murmurs rubs or gallops Jugular venous distension: no JVD Rate: regular rate and tachycardic Rhythm: regular rhythm Heart sounds: S1 normal heart sound present, S2 normal heart sound present, no gallops, no murmurs and no rubs GI: Other: Soft nontender nondistended normoactive bowel sounds Inspection: Yes normal to inspection, No Abdominal wall edema and No distended Palpation (GI): Soft to palpation, not firm, nontender, no guarding, not rigid and Other GI palpation findings present ( Nontender) Percussion: Yes normal to percussion Auscultation: normal bowel sounds : General: Yes no CVA tenderness External Female Exam: normal external appearance Back/Spine/Pelvis: Back: no CVA tenderness Skin: Other: appreciable scattered purpura General skin exam: no rashes or lesions noted Neuro: Other: She is alert and awake with normal spontaneity of speech fluency comprehension and depressed affect. She did not hear what I said but was able to communicate with written material. Face was symmetrical. There was no nystagmus. Visual sinha were full. Trophic skin changes were noted and hands in feet. Deep tendon reflexes were absent. General: patient oriented x3 and no meningeal signs Cranial nerves: Yes Equal, round and reactive pupils present Extrem: Other: No edema bilaterally General: No edema Psych: Other: unable to assess Appearance: grossly normal Objective Data Labs 09/17/23 10:03 09/17/23 10:03 Labs: Laboratory Results - last 24 hr 09/17/23 10:03 Hgb 8.4 L Hct 25.5 L Sodium 135 Potassium 2.9 L D Chloride 95 L Carbon Dioxide 28 Anion Gap 15 BUN 20 H Creatinine 1.27 Estim Creat Clear Calc 43.7 Estimated GFR 41 Random Glucose 80 Calcium 8.8 Microbiology Microbiology Results: Microbiology 09/03/23 21:22 Blood - Venous Blood Culture - Final No growth after 5 days. 09/03/23 21:22 Blood - Venous Blood Culture - Final No growth after 5 days. 09/03/23 22:53 Sputum - Suctioned Gram Stain - Final 09/03/23 22:53 Sputum - Suctioned Sputum Culture - Final Laura albicans 09/01/23 06:30 Blood - Venous Blood Culture - Final No growth after 5 days. 09/01/23 06:30 Blood - Venous Blood Culture - Final No growth after 5 days. 08/26/23 13:39 Blood - Venous Blood Culture - Final No growth after 5 days. 08/26/23 13:39 Blood - Venous Blood Culture - Final No growth after 5 days. 08/18/23 21:45 Blood - Venous Blood Culture - Final Streptococcus pneumoniae 08/18/23 20:17 Blood - Venous Blood Culture - Final Streptococcus pneumoniae Procedures Date of Service Date of Service: 09/17/23 Assessment & Plan Assessment and plan (1) BRE (acute kidney injury): Status: Acute Plan DDX includes ATN, but has underlying MGUS, low complements so ddx includes myeloma kidney, cryoglobulinemia. Doubt lupus nephritis or mixed connective tissue disease but possible given RA; postinfectious GN possible. BRE HD dpe now x severeal weeks and typically expect renal func to improve if it were simply ATN REC: avoid NToxins; cont HD support as need; d/c planning--has spot at [facility] Addendum: BX prelim shows chronic interstiail infiltrate and tubular atrophy Time Spent With Patient Time: Total time managing care of this patient today ____ minutes. Progress Note: Quality Stroke Does the patient have a stroke diagnosis?: No
[2023-09-17 19:02] VITALS: BP 166/75; PULSE 98; RESP 20; TEMP 36.3; O2SAT 96
[2023-09-18 04:00] VITALS: BP 151/72; PULSE 85; RESP 16; TEMP 36.6; O2SAT 94
[2023-09-18 05:42] LABS: Hematocrit 25.8 % (37.0-47.0); Hemoglobin 8.4 g/dl (12.0-16.0)
[2023-09-18 07:17] VITALS: BP 159/74; PULSE 92; RESP 18; TEMP 36.1; O2SAT 95
[2023-09-18 08:06] LABS: Potassium 3.5 mmol/L (3.3-5.1)
[2023-09-18] MEDS: buPROPion HCl XL 150 MG TAB.ER.24H PO (08:44)
[2023-09-18] MEDS: traMADoL HCL 50 MG TABLET PO (08:44)
[2023-09-18] MEDS: carvediloL 25 MG TABLET PO (08:44)
[2023-09-18] MEDS: predniSONE 10 MG TABLET PO (08:44)
[2023-09-18] MEDS: Lidocaine 4 % Patch ADH..PATCH 2 PATCH TRANSDERMA (08:47)
[2023-09-18] MEDS: Apixaban 2.5 MG TABLET PO (10:36)
[2023-09-18] MEDS: cefTRIAXone sodium 2 GM in 0.9 % Sodium Chloride 50 ML IV (10:36)
--- NOTE | 2023-09-18 11:05 | P.PNIM_ITS ---
Subjective Subjective Date of Service: 09/18/23 Interval History: denies new c/o no sob Review of Systems Review of Systems: Yes all other systems are reviewed and are negative Physical Exam 2 Vital Signs: Vital Signs: Last Vital Signs Temp 96.9 F 09/18/23 07:17 Pulse 92 09/18/23 07:17 Resp 18 09/18/23 07:17 BP 159/74 H 09/18/23 07:17 Pulse Ox 95 09/18/23 07:17 O2 Del Method Room Air 09/18/23 07:17 O2 Flow Rate 2 09/11/23 07:35 FiO2 25 09/04/23 17:00 BMI result Body Mass Index 30.8 Gen: in no acute distress Neck: supple, RIJ HD catheter Lungs: air entry diminshed ,no rales or wheezing Heart: [id number]. Abd: soft, nt,nd ,bs present renal biopsy site -right lower back -no swelling or pain or erythema . Skin: no cyanosis or edema . Neuro: alert and oriented x3, no focal findings except hearing loss as above Psych: appropriate affect Objective Data Active Medications Acetaminophen (Acetaminophen 325 Mg Tablet) 650 mg PO Q4H PRN PRN Reason: Pain, Mild (Pain Scale 1-3) Last Admin: 09/16/23 16:34 Dose: 650 mg Documented By: ARACELI Apixaban (Apixaban 2.5 Mg Tablet) 2.5 mg PO BID [facility] Last Admin: 09/18/23 10:36 Dose: 2.5 mg Documented By: AMARI Artificial Tears (Artificial Tears 15 Ml Drops) 2 drop EYE-BOTH Q4H PRN PRN Reason: Dry Eyes Last Admin: 08/29/23 08:33 Dose: 2 drop Documented By: ESTEFANIA Bupropion HCl (Bupropion Hcl Xl 150 Mg Tab.Er.24h) 150 mg PO DAILY [facility] Last Admin: 09/18/23 08:44 Dose: 150 mg Documented By: AMARI Carvedilol (Carvedilol 25 Mg Tablet) 25 mg PO BID [facility]; Protocol Last Admin: 09/18/23 08:44 Dose: 25 mg Documented By: AMARI Dextrose (Dextrose 50 % 25 Gm/50 Ml Syringe) 25 gm IVPUSH Q15M PRN PRN Reason: per Hypoglycemia Standing Ord. Last Admin: 08/21/23 13:27 Dose: 25 gm Documented By: HAROON Glucose (Glucose Gel 15 Gm Gel..Gram.) 15 gm PO Q15M PRN PRN Reason: per Hypoglycemia Standing Ord. Last Admin: 08/19/23 16:40 Dose: 15 gm Documented By: AVRIL Guaifenesin (Guaifenesin 200 Mg/10 Ml 10 Ml Liquid) 10 ml PO Q4H PRN PRN Reason: cough Guaifenesin (Guaifenesin 200 Mg/10 Ml 10 Ml Liquid) 10 ml PO Q4H PRN PRN Reason: Cough Ceftriaxone Sodium 2 gm/ (Sodium Chloride) 50 mls @ 100 mls/hr IV Q24H [facility] Last Admin: 09/18/23 10:36 Dose: 100 mls/hr Documented By: AMARI Lidocaine (Lidocaine 4 % Patch Adh..Patch) 2 patch TRANSDERMA DAILY [facility]; Protocol Last Admin: 09/18/23 08:47 Dose: 2 patch Documented By: AMARI Nystatin (Nystatin Powder 15 Gm Bottle) 1 appl TOPICAL BID [facility]; Protocol Last Admin: 09/18/23 08:54 Dose: Not Given Documented By: AMARI Non-Admin Reason: pt declined Ondansetron HCl (Ondansetron Hcl 4 Mg/2 Ml Vial) 4 mg IVPUSH Q6H PRN PRN Reason: Nausea and Vomiting Last Admin: 09/14/23 10:23 Dose: 4 mg Documented By: NARINDER Prednisone (Prednisone 10 Mg Tablet) 10 mg PO DAILY [facility] Last Admin: 09/18/23 08:44 Dose: 10 mg Documented By: AMARI Tramadol HCl (Tramadol Hcl 50 Mg Tablet) 50 mg PO Q6H PRN PRN Reason: Pain, Mild (Pain Scale 1-3) Last Admin: 09/18/23 08:44 Dose: 50 mg Documented By: AMARI Labs 09/18/23 05:12 09/18/23 05:12 Labs: Laboratory Results - last 24 hr 09/17/23 10:03 Anion Gap 15 Estim Creat Clear Calc 43.7 Estimated GFR 41 Random Glucose 80 Calcium 8.8 Assessment and Plan Plan 73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 consulted Neuro, no MRI evidence of sarcoid involvement. did not get any aminoglycosides in ICU. got high-dose steroids in ICU for adrenal insufficiency of septic shock. continue ceftriaxone as above. hx AF/RVR acute HFrEF NSTEMI, likely demand - TTE 08/19/23: 1. Moderate to severe reduction LV ejection fraction with LVEF of 30-35% with impaired relaxation filling pattern 2. Mild mitral calcification and calcific aortic valve changes noted with cardiac valvular Dopplers within normal limits 3. No gross pericardial effusion - EKG, Cardiology consulted, switched amlodipine to carvedilol . Eventually to consider valsartan pending resolution/stabilization of renal issues. Cardiology follow-up and outpt ischemic workup. Will also need to be on apixaban after renal biopsy dysphagia- NDD3 diet + nectar-thick liquids; MBSS showed subglottic aspiration with thin liquids. RA/sarcoidosis- transitioned back to regular dose of prednisone 10 mg daily. mood disorder- bupropion. VTE ppx- hold UFH in case of renal biopsy. Eventually put on apixaban for CVA prevention given AF. dispo- STR recommended but pt declines. She cites having enough family support and equipment at home. patient requires continued inpatient hospitalization for the following reasons: bre workup renal biopsy,dialysis placement.possible sensory neuro hearing loss, R>L/and ?from invasive pneumococcal disease- need iv antibiotics . Quality Stroke Does the patient have a stroke diagnosis?: No VTE Prior VTE?: No VTE Risk Level:: Medical - moderate - high VTE Device Contraindication: N/A - Device Ordered VTE Drug Contraindication: N/A - Med Ordered
--- NOTE | 2023-09-18 11:14 | MHC.SL.SWA ---
Speech Pathologist Impression: Risk of aspiration, oropharyngeal dysphagia Risk of Aspiration Due to: Lethargy History of Pneumonia Hx of Recent Extubation Dysphasia Diet Status: Recommend CONTINUE on CHOPPED/ADVANCED (NDD3) diet and NECTAR THICK liquids. Speech therapy to continue with trials of thin liquid by teaspoon or cup, continued assessment for potential upgrade to thin liquids if appropriate given pt?s medical status. Ad interim, pt is recommended a [place] Water Protocol for comfort and to promote hydration. Per protocol, pt to be permitted water between meals with strict aspiration precautions and nursing or EMPLOYMENT CASE MANAGER supervision. Oral care to be provided after meals/before presentation of water. Water to be given by teaspoon or individual cup sip, with cues for volitional throat clear after sip. Following strategies are recommended to maximize feeding safety: -Liquids via teaspoon or individual cup sips -Avoid the use of straws -Moisten foods with sauces and gravies -Avoid sticky or hard foods; mixed consistencies (i.e. thin broth soup with solid ingredients) -Small bites, one bite at a time -Ensure oral cavity is clear before giving next bite -Follow bite with dry swallow then sip of liquid -Maintain 90 degree position during PO intake and for at least 30-45 minutes afterwards Liquid Consistency and Strategies for Safe Swallow: Liquid Intake Recommendation: [place] Thick Liquid Intake Strategies: Small Sips No Straws Double Swallow Solid Food Consistency: Dietary Recommendations: Chopped/Advanced (NDD3) Oral Medication Intake: Crushed with Puree Please contact the pharmacy regarding appropriate crushable or liquid drug formulations that are available whenever modified delivery is recommended. Compensatory Strategies and Precautions to be Taken for Safe Swallow: Sitting Upright (90 deg) Double Swallow No Straw Liquids from Cup Liquids from Spoon Small Bites and Sips Alternate Liquids/Solids Rate of Ingestion Change Avoid Specific Foods Supervision While Eating and Drinking for Safe Swallow: Total Supervision (1:1) Foods to Avoid: Avoid sticky or hard foods; mixed consistencies (i.e. thin broth soup with solid ingredients) Swallowing Recommended Treatments: Compens. Strategy Educat. Recommendation for Speech: Recommend repeat-MBSS when appropriate. Fabric Worker Foreman Clinican/Clinical Fellow: No Supervisory Statement: I have reviewed and agree with the student/clinical fellow's documentation: N/A Speech Language Pathologist: Pauline Avila M.A., CCC-EMPLOYMENT CASE MANAGER
[2023-09-18 11:20] VITALS: BP 159/74; PULSE 92; O2SAT 95
--- NOTE | 2023-09-18 13:24 | MHC.CM.PN ---
pt ready for dc lucrecia estrada going for [facility] to hear if they can do peripheral line for iv antibiotics
--- NOTE | 2023-09-18 14:51 | MHC.CLN ---
F/U PO INTAKE VARIABLE RANGING FROM 0-100% DIET RX: 2GM NA CHOPPED WITH NT LIQ-APPROPRIATE PLANT CONTROL OPERATOR RECOMMENDED DIET CONSISTENCY HOWEVER PT IS NONCOMPLIANT WITH DIET CONSISTENCY PER NSG. PT DRINKING THIN LIQUID AND EDUCATED BY NURSING STAFF THE IMPORTANCE OF FOLLOWING DIET PT RECEIVING MAGIC CUP TID PROVIDES 870 KCALS, 27 G PROTEIN TO INCREASE KCALS MONITOR PO INTAKE, ENCOURAGE DIET CONSISTENCY AND SUPPLEMENTS
--- NOTE | 2023-09-18 15:00 | MHC.CM.PN ---
pt is going to [facility] for 5 today son vijaya notified [phone]
[2023-09-18 15:25] VITALS: BP 151/72; PULSE 95; RESP 18; TEMP 36.3; O2SAT 96
--- NOTE | 2023-09-18 17:10 | PC.NURSE ---
IV placed by RN, labeled with today's date, d/c to SNF with IV Access.
--- NOTE | 2023-09-18 17:13 | PM.DS ---
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 09/10/23 11:37 Consult to Cardiology Routine Consulting Provider: [facility] Reason for consultation: septic shock ICU downgrade- HFrEF, nSTEMi, AF/RVR 09/10/23 11:44 Consult to Infectious Diseases Routine Consulting Provider: [facility] Reason for consultation: did this pt get appropriately treated for invasive pneumococcal disease? Attending physician on discharge: Tabatha Enamorado Discharging clinician: Tabatha Enamorado DS: Diagnosis Discharge Diagnosis (1) BRE (acute kidney injury): Status: Acute (2) Dysphasia: Status: Acute (3) Hearing loss: Status: Acute (4) Acute hypoxic respiratory failure: Status: Acute (5) Pulmonary aspiration: Status: Acute (6) Atrial fibrillation with rapid ventricular response: Status: Acute DS: Summary Hospital Course Hospital Course: 73-year-old female with underlying history of sarcoid, rheumatoid arthritis, monoclonal gammopathy of unknown significance, steroid and methotrexate long-term user, history of coronary angiography with unknown results, emphysema, hypertension, pulmonary nodules, hypertension, osteoporosis among others. Patient had presented to the emergency room around 07:00 o'clock tonight , her family had reported complaints of increased confusion since 6 in the morning associated with nausea, vomiting.? Reportedly the patient had been having random words and some vomiting, no history of falls or trauma, she had been noted to be significantly weak unable to walk and over last couple of days she has had a mild cough but no noticeable shortness of breath. Emergency room, patient's workup revealed patient who initially had a normal blood pressure but was tachycardic 112 beats per minute, became tachypneic, more tachycardic, febrile with a T-max of 104.2 degrees, hypoxic with an O2 sat of 88% room air.? Her workup reveal white count 5.0, platelets of 133, sodium 133, potassium 3.7, chloride 97, carbon dioxide 21, anion gap 19, BUN 21, creatinine 2.? Five 2, lactic acid of 6.2 which eventually came up to 7.8, magnesium 1.2, initial troponin of 2141 which went up an hour and half later to 6229. ?Lipase of 84, urinalysis negative, COVID and influenza negative. ?Patient was given 30 mL/kilo of IV fluids, started on Zosyn, given magnesium.? The case had been discussed with the shuttle veneering supervisor given her elevated troponin who advised start the patient on heparin given that there is no noticeable ST elevations or depressions on EKG. Patient subsequently became more hypotensive requiring vasopressors.? Currently patient is alert and oriented, complains of 6/10 abdominal pain in the epigastric area, no radiation, sharp in nature, associated with nausea and 2 episodes of vomit at home, some chills, denies any cough or sputum production, admits shortness of breath, admits having an a negative cardiac catheterization several years ago, she does have multiple stents in her right carotid artery, bilateral lower extremities due to peripheral arterial disease, denies leg pain, admits that the color of her upper thighs (somewhat mottled) is the way that she normally has them, she does not feel cool extremities. Hospital course: Patient was admitted to ICU for septic shock with streptococcal pneumonia/bacteremia-status post intubation, ICU course also complicated by demand NSTEMI, BRE on hemodialysis and hearing loss: Extubated on08/29/23 and possible aspiration and re-intubation 09/03/23 extubated 09/04/23: received broad spectrum iv antibiotics ,blood culture grew strep penumonia ,repeat cultures negative , mental status to back to the baseline, in addition patient has sensorineural hearing loss so recommended extra 14 days of IV ceftriaxone( last dose will be on 09/26/22). Patient is to follow-up with the in ENT for hearing loss evaluation outpatient. BRE: Patient is status post renal biopsy, hemodialysis started on 08/21 -tunneled RIJ catheter placed 09/08/23: Follow-up with renal biopsy and hemodialysis outpatient with Nephrology. hypoK- repleted and resolved . ch anemia: H&H between 8.5-9 range: Monitor CBC, further workup outpatient. AFib with RVR ,acute HFrEF,NSTEMI, likely demand: received Hd , Continue beta-chelsie, Eliquis 5 mg b.i.d. will take off plavix which was given for possible peripheral artery disease since eliquis started. echo:Moderate to severe reduction LV ejection fraction with LVEF of 30-35% with impaired relaxation filling pattern 2. Mild mitral calcification and calcific aortic valve changes noted with cardiac valvular Dopplers within normal limits 3. No gross pericardial effusion cardiology recomended switched amlodipine to carvedilol . Eventually to consider valsartan pending resolution/stabilization of renal issues. Cardiology follow-up and outpt ischemic workup. Initially also was question of possible MGus: follow follow-up with further workup outpatient with Hematology if needed. dysphagia- NDD3 diet + nectar-thick liquids; MBSS showed subglottic aspiration with thin liquids. plan: Monitor CBC and BMP for anemia and underlying BRE and electrolytes monitering respectively. Complete 1 week of IV ceftriaxone-( last dose will be on 09/26/22). Follow-up with the ENT for hearing loss evaluation outpatient for sensorineural hearing loss. Patient is to follow up outpatient with Nephrology, Hematology, cardiology out patiently for above mentioned issues. Above management discussed with patient , her , her son in detail and they understand and in agreement with above plan, time spent time spent 50 minute. Time Attestation Discharge coordination time: Greater than 30 minutes Quality: Safe Use of Opioids Does Pt have an Active Cancer Diagnosis on the Problem List?: No Quality: Stroke Does the patient have a stroke diagnosis?: No Physical Exam Vital Signs: Vital Signs: Last Vital Signs Temp 97.3 F 09/18/23 15:25 Pulse 95 09/18/23 15:25 Resp 18 09/18/23 15:25 BP 151/72 H 09/18/23 15:25 Pulse Ox 96 09/18/23 15:25 O2 Del Method Room Air 09/18/23 15:25 O2 Flow Rate 2 09/11/23 07:35 FiO2 25 09/04/23 17:00 BMI result Body Mass Index 30.8 Gen: in no acute distress Neck: supple, RIJ HD catheter Lungs: air entry diminshed ,no rales or wheezing Heart: [id number]. Abd: soft, nt,nd ,bs present renal biopsy site -clean ,no pain or erythema . Skin: no cyanosis or edema . Neuro: alert and oriented x3, no focal findings except hearing loss as above Psych: appropriate affect DS: Data Data Completed and Pending Completed studies during hospitalization [Text1]: Pending at discharge 09/16/23 13:00 Surgical Path [Surgical] [PTH] Routine Labs on day of discharge: Laboratory Results - last 24 hr 09/18/23 05:12 Hgb 8.4 L Hct 25.8 L Potassium 3.5 D Imaging Chest x-ray: Radiologist's impression: ITS Impressions Chest X-Ray 08/18/23 19:47 IMPRESSION: 1. No focal infiltrate or congestive heart clear is seen. 2. Lung volumes are low. Mild to moderate elevation of the right hemidiaphragm is newly appreciated. Abdomen/Pelvis CT 08/18/23 21:57 IMPRESSION: 1. Acute uncomplicated pancreatitis involving the pancreatic tail. 2. Other incidental findings as described above including periportal edema, left femoral artery stent and degenerative changes in the spine. Fleischner guidelines were followed. Chest CTA 08/18/23 21:57 IMPRESSION: 1. No evidence of pulmonary emboli. 2. No evidence of aortic dissection. 3. New cluster of tree-in-bud opacities in the left upper lobe laterally consistent with airway/inflammatory disease. 4. Other incidental findings as described above. VTE: negative. According to the UPDATED 2017 Fleischner Society recommendations, the advised follow-up imaging for a single 6-8 mm solid nodule is follow-up CT at 6 to 12 months. In high-risk patients, subsequent CT follow-up at 18 to 24 months is recommended. In low-risk patients, subsequent CT follow-up at 18 to 24 months is optional. . Head CT 08/18/23 22:00 IMPRESSION: No acute intracranial pathology. Chest X-Ray 08/18/23 23:42 IMPRESSION: Right IJ line with tip in mid to distal SVC. No pneumothorax is seen. Abdomen Ultrasound 08/19/23 14:41 IMPRESSION: 1. Grossly abnormal gallbladder with markedly thickened wall containing fluid. No gallstones are seen and Ov[place]o's sign is negative. Trace ascites is seen. 2. Incidental note made of cirrhotic appearance of the liver. Chest X-Ray 08/20/23 10:53 IMPRESSION: 1. Pulmonary vascular congestion and redistribution, increased since 08/18/2023. 2. Question left base atelectasis or pneumonia. Chest X-Ray 08/21/23 01:27 IMPRESSION: Endotracheal tube tip 4 cm above the virgilio. Enteric tube courses into the stomach. Redemonstrated bibasilar opacities suspicious for combination of small pleural effusions and underlying atelectasis versus consolidation. Component of central vascular suggestion is suspected. Chest X-Ray 08/21/23 12:47 IMPRESSION: Tubes and catheters are as described. There is a new catheter overlying the left lower neck terminating overlying the posterior second rib at the level of the thoracic inlet. The ET tube is 4.3 cm above the virgilio. Continued bilateral opacities This critical result was discussed with Shayy turner at 2:15 PM on 08/21/2023 and it was ascertained that the content and urgency of the report was understood at the time of direct communication. Catheter Change 08/27/23 11:07 IMPRESSION: Placement of a non-tunneled hemodialysis catheter in the left internal jugular vein. PLAN: -The catheter may be used immediately. This procedure was performed by Willie Treviño PA-C, and directly supervised by Dr. Martines. Guidance Ultrasound 08/27/23 11:07 IMPRESSION: Placement of a non-tunneled hemodialysis catheter in the left internal jugular vein. PLAN: -The catheter may be used immediately. This procedure was performed by Willie Treviño PA-C, and directly supervised by Dr. Martines. Chest X-Ray 08/31/23 20:46 IMPRESSION: 1. Interval placement of left-sided nontunneled dialysis catheter with its distal tip terminating in mid to distal SVC. 2. Left basilar atelectasis. 3. Slight accentuation of pulmonary vasculature. Chest X-Ray 09/03/23 20:50 IMPRESSION: 1. New endotracheal tube and left jugular central venous catheter are in satisfactory position. 2. Minimal atelectasis in both lung bases.. 3. Mild blunting of right CP angle question pleural effusion versus thickening. Head CT 09/04/23 01:00 IMPRESSION: No acute intracranial abnormality including hemorrhage, mass effect, hydrocephalus, or acute territorial edematous infarction. Abdomen/Pelvis CT 09/04/23 01:05 IMPRESSION: * Mucous plugging within the bilateral lower lobe bronchi and proximal right middle lobe bronchus, associated with complete collapse of the right lower lobe. Recommend pulmonary toilet. * Unchanged tree-in-bud nodular opacities in the left upper lobe favoring areas of infectious bronchiolitis. * [id number] emphysema. * No acute findings in the abdomen or pelvis. Chest CT 09/04/23 01:05 IMPRESSION: * Mucous plugging within the bilateral lower lobe bronchi and proximal right middle lobe bronchus, associated with complete collapse of the right lower lobe. Recommend pulmonary toilet. * Unchanged tree-in-bud nodular opacities in the left upper lobe favoring areas of infectious bronchiolitis. * [id number] emphysema. * No acute findings in the abdomen or pelvis. Head CT 09/05/23 20:14 IMPRESSION: No acute intracranial pathology. No significant change since CT of the head done yesterday. Brain MRI 09/06/23 13:55 IMPRESSION: -No acute intracranial abnormalities. -Global cerebral atrophy and chronic microangiopathy. -Bilateral mastoid effusions. Guidance Ultrasound 09/08/23 12:50 IMPRESSION: Placement of a tunneled hemodialysis catheter in the right internal jugular vein. PLAN: -The catheter may be used immediately. This procedure was performed by Willie Treviño PA-C, and directly supervised by Dr. Correa. Insertion Tunneled Catheter 09/08/23 12:50 IMPRESSION: Placement of a tunneled hemodialysis catheter in the right internal jugular vein. PLAN: -The catheter may be used immediately. This procedure was performed by Willie Treviño PA-C, and directly supervised by Dr. Correa. Modified Barium Swallow 09/09/23 14:53 IMPRESSION: Subglottic aspiration with thin liquids. Laryngeal penetration was seen with nectar thick liquids Refer to the full speech therapy report for further clarification This procedure was performed by Willie Treviño PA-C, and supervised by Dr. Jara Brain MRI 09/10/23 21:16 IMPRESSION: 1. No vestibular schwannoma or retrocochlear lesion. 2. No mass lesion, acute infarction, or abnormal intracranial enhancement. Discharge Plan Discharge Anticipated Discharge Date/Time: 09/18/23 16:19 Patient Disposition: Xfer SNF Discharge Diagnosis: bre-on hd biopsy pending, afib with rvr, dysphagia ,AHRF and septic shock due to invasive pneumococcal disease Referrals: lucrecia estrada [Other] - 1 Week Octavia Falk MD [Physician] - 1 Week (follow up outaptient) Miguelina Soliman MD [Primary Care Provider] - 1 Week Discharge Medications: New carvedilol 25 mg Tablet 25 mg PO BID Qty: 1 0RF Protocol: Hold for SBP/HR < HOLD for SBP < : 90 HOLD for HR < : 60 Artificial Tears([id number]) 1-0.2-0.2 % Drops 2 drp ophthalmic (eye) Q4H PRN (Reason: Dry Eyes) Qty: 15 0RF guaifenesin 100 mg/5 mL Liquid 100 mg PO Q4H PRN (Reason: cough) Qty: 100 0RF Eliquis 2.5 mg Tablet 5 mg PO BID Qty: 1 0RF ceftriaxone 2 gram recon soln 1 g IV DAILY Qty: 7 0RF Rx Instructions: end date 09/26/23 Continued O[place]cia ClickJect 125 mg/mL auto-injector 125 mg subcut QWEEK Qty: 4 3RF albuterol sulfate 90 mcg/actuation HFA aerosol inhaler 2 inh inhalation Q6H PRN (Reason: shortness of breath or wheezing) 30 Days Qty: 18 12RF bupropion HCl [Wellbutrin XL] 150 mg tablet extended release 24 hr 150 mg PO QAM 90 Days Qty: 90 0RF prednisone 5 mg tablet 10 mg PO DAILY Qty: 60 0RF tramadol 50 mg tablet 50 mg PO Q6H PRN (Reason: Pain) 30 Days Qty: 120 0RF Praluent Pen 150 mg/mL pen injector 150 mg subcut Q2W Held lisinopril 40 mg tablet 40 mg PO DAILY Qty: 90 2RF Hold Instructions: Resume on 10/21/23. start once cleared by nephrology Discontinued amlodipine 5 mg tablet 5 mg PO DAILY Qty: 90 1RF clopidogrel [Plavix] 75 mg tablet 75 mg PO DAILY Discharge Orders: Discharge Order (Routine); Ordered 09/18/23 Ordered By: Tabatha Enamorado Diet: Advance to usual diet Activity on Discharge: As tolerated Stand Alone Forms: Patient Portal Discharge page Care Plan Goals: Patient was admitted to ICU for septic shock with streptococcal pneumonia/bacteremia-status post intubation, ICU course also complicated by demand NSTEMI, BRE on hemodialysis and hearing loss: Extubated on08/29/23 and possible aspiration and re-intubation 09/03/23 extubated 09/04/23: Patient was treated with IV antibiotics for streptococcal pneumonia, in addition patient has sensorineural hearing loss so recommended extra 14 days of IV ceftriaxone( last dose will be on 09/26/22). Patient is to follow-up with the in ENT for hearing loss evaluation outpatient. BRE: Patient is status post renal biopsy, hemodialysis started on 08/21 -tunneled RIJ catheter placed 09/08/23: Follow-up with renal biopsy and hemodialysis outpatient with Nephrology. ch anemia: H&H between 8.5-9 range: Monitor CBC, further workup outpatient. AFib with RVR: Continue beta-chelsie, Eliquis 5 mg b.i.d. will take off plavix which was given for possible peripheral artery disease since eliquis started. Initially also was question of possible MGus: follow follow-up with further workup outpatient with Hematology if needed. dysphagia- NDD3 diet + nectar-thick liquids; MBSS showed subglottic aspiration with thin liquids. Patient is to follow up outpatient with Nephrology, Hematology, cardiology. Health Concerns: As above. Plan of Treatment: As above. Assessment: As above.
--- NOTE | 2023-09-18 23:09 | PM.PNNEP ---
Subjective Subjective Date of Service: 09/18/23 Interval history: Seen ane exained, events noted Physical Exam Vital Signs: Vital Signs: Last Vital Signs Temp 97.3 F 09/18/23 15:25 Pulse 95 09/18/23 15:25 Resp 18 09/18/23 15:25 BP 151/72 H 09/18/23 15:25 Pulse Ox 96 09/18/23 15:25 O2 Del Method Room Air 09/18/23 15:25 O2 Flow Rate 2 09/11/23 07:35 FiO2 25 09/04/23 17:00 BMI result Body Mass Index 30.8 Const: Other: Awake alert no acute distress General: no acute distress Nutritional Appearance: overweight and Edematous Orientation/consciousness: patient oriented x3 HEENT: Head: Yes normal to inspection, Yes normocephalic and Yes atraumatic Ears: hearing grossly impaired Face and sinus: Yes normal facial exam Mouth: Normal oral and palatal mucosa present Teeth and gingiva: dentition normal Eyes: General: appearance normal, both eyes and all related structures Sclerae: sclerae normal Pupils: Equal, round and reactive pupils present EOM: EOMs intact bilaterally Neck: Other: Left IJ line Neck: Yes normal visual inspection, Yes full ROM, Yes no lymphadenopathy, Yes no meningeal signs, Yes trachea midline, Yes supple and Yes no JVD Chest: Chest palpation & inspection: normal inspection of the chest and normal palpation of entire chest wall Resp: Other: Clear to auscultation bilaterally no rales rhonchi or wheezes Effort & Inspection: normal respiratory effort, abnormal respiratory pattern and no respiratory distress Auscultation: clear to auscultation bilaterally, crackles ( mild bilateral), rales (Bilateral) and diminished lung sounds Cardio: Other: No S4; positive S1-S2; no S3 murmurs rubs or gallops Jugular venous distension: no JVD Rate: regular rate and tachycardic Rhythm: regular rhythm Heart sounds: S1 normal heart sound present, S2 normal heart sound present, no gallops, no murmurs and no rubs GI: Other: Soft nontender nondistended normoactive bowel sounds Inspection: Yes normal to inspection, No Abdominal wall edema and No distended Palpation (GI): Soft to palpation, not firm, nontender, no guarding, not rigid and Other GI palpation findings present ( Nontender) Percussion: Yes normal to percussion Auscultation: normal bowel sounds : General: Yes no CVA tenderness External Female Exam: normal external appearance Back/Spine/Pelvis: Back: no CVA tenderness Skin: Other: appreciable scattered purpura General skin exam: no rashes or lesions noted Neuro: Other: She is alert and awake with normal spontaneity of speech fluency comprehension and depressed affect. She did not hear what I said but was able to communicate with written material. Face was symmetrical. There was no nystagmus. Visual sinha were full. Trophic skin changes were noted and hands in feet. Deep tendon reflexes were absent. General: patient oriented x3 and no meningeal signs Cranial nerves: Yes Equal, round and reactive pupils present Extrem: Other: No edema bilaterally General: No edema Psych: Other: unable to assess Appearance: grossly normal Objective Data Labs 09/18/23 05:12 09/18/23 05:12 Labs: Laboratory Results - last 24 hr 09/18/23 05:12 Hgb 8.4 L Hct 25.8 L Potassium 3.5 D Microbiology Microbiology Results: Microbiology 09/03/23 21:22 Blood - Venous Blood Culture - Final No growth after 5 days. 09/03/23 21:22 Blood - Venous Blood Culture - Final No growth after 5 days. 09/03/23 22:53 Sputum - Suctioned Gram Stain - Final 09/03/23 22:53 Sputum - Suctioned Sputum Culture - Final Laura albicans 09/01/23 06:30 Blood - Venous Blood Culture - Final No growth after 5 days. 09/01/23 06:30 Blood - Venous Blood Culture - Final No growth after 5 days. 08/26/23 13:39 Blood - Venous Blood Culture - Final No growth after 5 days. 08/26/23 13:39 Blood - Venous Blood Culture - Final No growth after 5 days. 08/18/23 21:45 Blood - Venous Blood Culture - Final Streptococcus pneumoniae 08/18/23 20:17 Blood - Venous Blood Culture - Final Streptococcus pneumoniae Procedures Date of Service Date of Service: 09/18/23 Assessment & Plan Assessment and plan (1) BRE (acute kidney injury): Status: Acute Plan DDX includes ATN, but has underlying MGUS, low complements so ddx includes myeloma kidney, cryoglobulinemia. Doubt lupus nephritis or mixed connective tissue disease but possible given RA; postinfectious GN possible. Prelim Bx revelas chronic interstital inflam per verbal report BRE HD dpe now x severeal weeks and typically expect renal func to improve if it were simply ATN but now with incr UOP and decreasing intradialytic SCr is hopeful reflecting renal recovery REC: avoid NToxins; cont HD support as need; d[facility]c planning--[facility] pre-HD and depending on results look tocutback HD 2x/wk and possibly stop HD; LV with [facility] path for results of Bx Time Spent With Patient Time: Total time managing care of this patient today ____ minutes. Progress Note: Quality Stroke Does the patient have a stroke diagnosis?: No
== END 2023-09-18 17:34 | disposition skilled nursing facility (03) | DRG 870 ==
LOC: HO.ED 19:16 → HO.EDOVER 23:25 → HO.ICU 08-19 00:05 → HO.IMC 08-31 14:21 → HO.ICU 09-03 20:36 → HO.S3 09-07 16:06
PROVIDERS: Family Medicine; Hospitalist; Internal Medicine; Internal Medicine Critical Care Medicine; Internal Medicine Hypertension Specialist; Internal Medicine Nephrology; Internal Medicine Pulmonary Disease; Nurse Practitioner Family; Radiology Vascular & Interventional Radiology; Registered Nurse Community Health; Student in an Organized Health Care Education/Training Program; Admitting Provider Physician Assistant Medical; Emergency Provider Emergency Medicine; PCP Internal Medicine; Visit Provider Internal Medicine
PROC: 02PYX3Z Removal of Infusion Device from Great Vessel, External Approach (ICD-10-PCS; principal; 2023-08-27 09:30)
PROC: 0JH63XZ Insertion of Tunneled Vascular Access Device into Chest Subcutaneous Tissue and Fascia, Percutaneous Approach (ICD-10-PCS; principal; 2023-09-08 11:30)
PROC: 0TB07ZX Excision of Right Kidney, Via Natural or Artificial Opening, Diagnostic (ICD-10-PCS; principal; 2023-09-16 11:30)
DX: A40.3 Sepsis due to Streptococcus pneumoniae (principal); G93.41 Metabolic encephalopathy; I21.A1 Myocardial infarction type 2; R65.21 Severe sepsis with septic shock; J96.01 Acute respiratory failure with hypoxia; K72.00 Acute and subacute hepatic failure without coma; N17.0 Acute kidney failure with tubular necrosis; J13 Pneumonia due to Streptococcus pneumoniae; J69.0 Pneumonitis due to inhalation of food and vomit; I50.21 Acute systolic (congestive) heart failure; E87.1 Hypo-osmolality and hyponatremia; E87.21 Acute metabolic acidosis; J98.11 Atelectasis; F33.0 Major depressive disorder, recurrent, mild; D86.9 Sarcoidosis, unspecified; D69.6 Thrombocytopenia, unspecified; D47.2 Monoclonal gammopathy; R13.10 Dysphagia, unspecified; I11.0 Hypertensive heart disease with heart failure; E83.42 Hypomagnesemia; E86.0 Dehydration; I48.0 Paroxysmal atrial fibrillation; H91.93 Unspecified hearing loss, bilateral; D64.9 Anemia, unspecified; E87.6 Hypokalemia; E83.39 Other disorders of phosphorus metabolism; E86.1 Hypovolemia; J43.9 Emphysema, unspecified; M06.9 Rheumatoid arthritis, unspecified; Z99.2 Dependence on renal dialysis; Z20.822 Contact with and (suspected) exposure to COVID-19; Z87.891 Personal history of nicotine dependence; Z79.52 Long term (current) use of systemic steroids; Z79.69 Long term (current) use of other immunomodulators and immunosuppressants; Z79.631 Long term (current) use of antimetabolite agent; Z79.899 Other long term (current) drug therapy
CPT/HCPCS: 0241U; 36415; 36558; 36580; 36600; 50200; 70450; 70551; 70553; 71045; 71250; 71275; 74176; 74177; 74230; 76705; 76937; 77012; 80048; 80053; 80076; 80202; 80307; 81001; 82040; 82140; 82164; 82272; 82570; 82595; 82784; 82803; 82947; 83010; 83520; 83521; 83605; 83615; 83690; 83735; 83880; 83883; 84100; 84132; 84156; 84165; 84300; 84443; 84484; 85007; 85014; 85018; 85025; 85027; 85335; 85397; 85610; 85730; 86021; 86038; 86160; 86225; 86334; 86704; 86706; 86850; 86900; 86901; 87040; 87070; 87077; 87186; 87205; 87340; 87493; 87502; 87633; 87635; 88300; 88305; 88313; 88346; 88348; 88350; 90999; 92526; 92610; 92611; 93005; 93306; 94002; 94003; 94660; 94799; 97110; 97162; 97163; 97530; 99152; 99153; 99285; A9585; C1725; C1750; C1758; C1769; C9113; J0131; J0171; J0282; J0283; J0613; J0692; J0696; J1120; J1170; J1644; J1720; J1836; J1940; J2250; J2405; J2543; J2598; J2704; J2765; J2920; J3010; J3370; J3475; J7120; P9047; P9073; Q9967

== ENCOUNTER 2023-08-18 23:15 | Outpatient (BNV) | payer MEDICARE, SELFPAY | END 2023-09-16 11:58 | PROVIDERS: Admitting Provider Physician Assistant Medical; Emergency Provider Emergency Medicine; PCP Internal Medicine; Visit Provider Student in an Organized Health Care Education/Training Program | DX: N17.9 Acute kidney failure, unspecified (principal) | CPT/HCPCS: 50200; 77012; 99152 ==

== ENCOUNTER 2023-08-18 23:15 | Outpatient (BNV) | payer MEDICARE, SELFPAY | END 2023-09-03 11:23 | PROVIDERS: Admitting Provider Physician Assistant Medical; Emergency Provider Emergency Medicine; PCP Internal Medicine; Visit Provider Internal Medicine Cardiovascular Disease | DX: R94.31 Abnormal electrocardiogram [ECG] [EKG] (principal) | CPT/HCPCS: 93010 ==

== ENCOUNTER 2023-08-18 23:15 | Outpatient (BNV) | payer MEDICARE, SELFPAY | END 2023-08-27 10:00 | PROVIDERS: Admitting Provider Physician Assistant Medical; Emergency Provider Emergency Medicine; PCP Internal Medicine; Visit Provider Student in an Organized Health Care Education/Training Program | DX: N18.6 End stage renal disease (principal) | CPT/HCPCS: 36558; 76937; 77001 ==

== ENCOUNTER 2023-08-18 23:15 | Outpatient (BNV) | payer MEDICARE, SELFPAY | END 2023-09-10 13:48 | PROVIDERS: Admitting Provider Physician Assistant Medical; Emergency Provider Emergency Medicine; PCP Internal Medicine; Visit Provider Internal Medicine Cardiovascular Disease | DX: I48.91 Unspecified atrial fibrillation (principal) | CPT/HCPCS: 93010 ==

== ENCOUNTER 2023-08-18 23:15 | Outpatient (BNV) | payer MEDICARE, SELFPAY | END 2023-09-09 17:19 | PROVIDERS: Admitting Provider Physician Assistant Medical; Emergency Provider Emergency Medicine; PCP Internal Medicine; Visit Provider Radiology Diagnostic Radiology | DX: J96.01 Acute respiratory failure with hypoxia (principal) | CPT/HCPCS: 74230 ==

== ENCOUNTER 2023-08-18 23:15 | Outpatient (BNV) | payer MEDICARE, SELFPAY | END 2023-08-19 07:00 | PROVIDERS: Admitting Provider Physician Assistant Medical; Emergency Provider Emergency Medicine; PCP Internal Medicine; Visit Provider Internal Medicine Cardiovascular Disease | DX: I34.81 Nonrheumatic mitral (valve) annulus calcification (principal) | CPT/HCPCS: 93306 ==

== ENCOUNTER 2023-08-18 23:15 | Outpatient (BNV) | payer MEDICARE, SELFPAY | END 2023-09-08 12:50 | PROVIDERS: Admitting Provider Physician Assistant Medical; Emergency Provider Emergency Medicine; PCP Internal Medicine; Visit Provider Radiology Vascular & Interventional Radiology | DX: N17.9 Acute kidney failure, unspecified (principal) | CPT/HCPCS: 36558; 76937; 99152 ==

== ENCOUNTER → 2023-08-18 23:15 | Outpatient (BNV) | payer MEDICARE, SELFPAY | PROVIDERS: Admitting Provider Physician Assistant Medical; Emergency Provider Emergency Medicine; PCP Internal Medicine; Visit Provider Surgery | DX: A41.89 Other specified sepsis (principal); R65.21 Severe sepsis with septic shock | CPT/HCPCS: 99223; 99232; 99233 ==

== ENCOUNTER → 2023-08-18 23:15 | Outpatient (BNV) | payer MEDICARE, SELFPAY | PROVIDERS: Admitting Provider Physician Assistant Medical; Emergency Provider Emergency Medicine; PCP Internal Medicine; Visit Provider Internal Medicine Cardiovascular Disease | DX: I51.9 Heart disease, unspecified (principal); I48.0 Paroxysmal atrial fibrillation | CPT/HCPCS: 99222 ==

== ENCOUNTER → 2023-08-18 23:15 | Outpatient (BNV) | payer MEDICARE, SELFPAY | PROVIDERS: Admitting Provider Physician Assistant Medical; Emergency Provider Emergency Medicine; PCP Internal Medicine; Visit Provider Internal Medicine | DX: D47.2 Monoclonal gammopathy (principal); N17.9 Acute kidney failure, unspecified | CPT/HCPCS: 99221 ==

== ENCOUNTER → 2023-08-18 23:15 | Outpatient (BNV) | payer MEDICARE, SELFPAY | PROVIDERS: Admitting Provider Physician Assistant Medical; Emergency Provider Emergency Medicine; PCP Internal Medicine; Visit Provider Internal Medicine | DX: R78.81 Bacteremia (principal); H91.90 Unspecified hearing loss, unspecified ear; J96.01 Acute respiratory failure with hypoxia; M06.9 Rheumatoid arthritis, unspecified; A40.9 Streptococcal sepsis, unspecified; R65.21 Severe sepsis with septic shock | CPT/HCPCS: 99222 ==

== ENCOUNTER → 2023-08-18 23:15 | Outpatient (BNV) | payer MEDICARE, SELFPAY | PROVIDERS: Admitting Provider Physician Assistant Medical; Emergency Provider Emergency Medicine; PCP Internal Medicine; Visit Provider Internal Medicine | DX: N17.9 Acute kidney failure, unspecified (principal); J96.01 Acute respiratory failure with hypoxia; I48.91 Unspecified atrial fibrillation; R47.02 Dysphasia; H91.90 Unspecified hearing loss, unspecified ear; T17.900A Unspecified foreign body in respiratory tract, part unspecified causing asphyxiation, initial encounter | CPT/HCPCS: 99231; 99232; 99233; 99239; 99499 ==

== ENCOUNTER → 2023-08-18 23:15 | Outpatient (BNV) | payer MEDICARE, SELFPAY | PROVIDERS: Admitting Provider Physician Assistant Medical; Emergency Provider Emergency Medicine; PCP Internal Medicine; Visit Provider Internal Medicine Pulmonary Disease | DX: G93.49 Other encephalopathy (principal); N19 Unspecified kidney failure; J96.01 Acute respiratory failure with hypoxia; T17.900A Unspecified foreign body in respiratory tract, part unspecified causing asphyxiation, initial encounter; N17.9 Acute kidney failure, unspecified; D47.2 Monoclonal gammopathy | CPT/HCPCS: 99233; 99291 ==

== ENCOUNTER → 2023-08-18 23:15 | Outpatient (BNV) | payer MEDICARE, SELFPAY | PROVIDERS: Admitting Provider Physician Assistant Medical; Emergency Provider Emergency Medicine; PCP Internal Medicine; Visit Provider Internal Medicine Critical Care Medicine | DX: J15.4 Pneumonia due to other streptococci (principal); J96.01 Acute respiratory failure with hypoxia; T17.900A Unspecified foreign body in respiratory tract, part unspecified causing asphyxiation, initial encounter; H91.90 Unspecified hearing loss, unspecified ear | CPT/HCPCS: 31500; 99291; 99292; 99499 ==

== ENCOUNTER 2023-09-23 06:05 | Outpatient (REF) | payer MEDICARE, SELFPAY ==
[2023-09-23 06:42] LABS: Basophils Absolute Auto 0.1 X10*3/uL (0.0-0.2); Basophils Percent Auto 1.2 % (0-2); Eosinophils Absolute Auto 0.3 X10*3/uL (0.0-0.4); Eosinophils Percent Auto 6.3 % (0-4); Hemoglobin 8.2 g/dl (12.0-16.0); Imm Gran Abs Auto 0.02 X10*3/uL (0.00-0.03); Imm Gran Pct Auto 0.5 % (0.0-0.4); Lymphocytes Absolute Auto 1.1 X10*3/uL (1.2-4.9); MANUAL DIFF FLAG SCAN; Mean Corpuscular HGB Conc 32.8 g/dl (31.0-35.0); Mean Corpuscular Hemoglobin 29.6 pg (27.0-33.0); Mean Corpuscular Volume 90.3 fL (80.0-98.0); Mean Platelet Volume 10.8 fL (9.4-12.3); Monocytes Absolute Auto 1.1 X10*3/uL (0.1-1.2); Neutrophils Absolute Auto 1.6 x10*3/uL (2.0-8.3); Platelet Count 305 X10*3/uL (160-400); Red Blood Count 2.77 X10*6/uL (4.20-5.50); Red Cell Distribution Width 14.6 % (11.0-16.0); SCAN SMEAR FLAG 1; White Blood Count 4.2 X10*3/uL (4.8-10.8)
[2023-09-23 07:01] LABS: Alanine Aminotransferase 6 U/L (0-31); Albumin Level 3.1 g/dL (3.5-5.0); Alkaline Phosphatase 83 U/L (39-117); Anion Gap 14 (12-20); Aspartate Amino Transferase 24 U/L (5-31); Bilirubin Total 0.3 mg/dL (0.0-1.0); Blood Urea Nitrogen 32 mg/dL (9-16); Calcium 8.5 mg/dL (8.4-10.2); Carbon Dioxide 24 mmol/L (22-29); Chloride 92 mmol/L (96-108); Estimated Glomerular Filt Rate 36; Glucose Random 71 mg/dL (60-115); Potassium 3.1 mmol/L (3.3-5.1); Sodium 127 mmol/L (135-145); Total Protein 7.5 g/dL (6.5-8.0)
[2023-09-23 08:28] LABS: SLIDE REVIEW VERIFIED
== END 2023-09-23 06:06 | disposition home or self-care (01) ==
LOC: HO.MMNH2L 06:05
PROVIDERS: Visit Provider Family Medicine
DX: I10 Essential (primary) hypertension (principal)
CPT/HCPCS: 36415; 80053; 85025

== ENCOUNTER 2023-09-25 05:58 | Outpatient (REF) | payer MEDICARE, SELFPAY | END 2023-09-25 05:59 | disposition home or self-care (01) | LOC: HO.MMNH2L 05:58 | PROVIDERS: Visit Provider Family Medicine | DX: E87.8 Other disorders of electrolyte and fluid balance, not elsewhere classified (principal) | CPT/HCPCS: 36415; 80048 ==

== ENCOUNTER 2023-09-28 06:54 | Outpatient (REF) | payer MEDICARE, SELFPAY | END 2023-09-28 06:55 | disposition home or self-care (01) | LOC: HO.MMNH2L 06:54 | PROVIDERS: Visit Provider Family Medicine | DX: I10 Essential (primary) hypertension (principal) | CPT/HCPCS: 36415; 80048; 85025 ==

== ENCOUNTER 2023-09-29 06:00 | Outpatient (REF) | payer MEDICARE, SELFPAY ==
[2023-09-29 06:28] LABS: Anion Gap 14 (12-20); Blood Urea Nitrogen 29 mg/dL (9-16); Calcium 8.8 mg/dL (8.4-10.2); Carbon Dioxide 27 mmol/L (22-29); Chloride 99 mmol/L (96-108); Estimated Glomerular Filt Rate > 60; Glucose Random 75 mg/dL (60-115); Potassium 3.5 mmol/L (3.3-5.1); Sodium 136 mmol/L (135-145)
== END 2023-09-29 06:01 | disposition home or self-care (01) ==
LOC: HO.MMNH2L 06:00
PROVIDERS: Visit Provider Family Medicine
DX: I10 Essential (primary) hypertension (principal)
CPT/HCPCS: 36415; 80048

== ENCOUNTER 2023-09-30 14:43 | Outpatient (AMB) | payer MEDICARE, SELFPAY ==
--- NOTE | 2023-09-30 14:46 | A.OFFPC_ITS ---
Vital Signs 09/30/23 14:50 Height 5 ft 6 in Weight 74 kg BMI 26.3 BP 110/70 Blood Pressure Location Lt brachial Position Sitting Pulse 109 H Pulse Source Pulse Oximeter Pulse Oximetry (%) 96 Oxygen Delivery Method Room Air Intake Visit Reasons: [facility] transferred Teo Bailey 08/18-09/10 Intake Note: Patient is here for hospital discharge follow up. Patient was [place] [facility] [place], [facility] on 09/30/23. Computer Installer Required: No Power Operator: Present Accompanied by: Daughter Allergies Ysvmixr-EMW-ZyE Reductase Inhibitor [[id number] REDUCTASE INHIBITOR] Allergy (Severe, Verified 09/30/23 14:56) ANAPHYLACTIC apixaban [From Eliquis] Allergy (Intermediate, Verified 09/30/23 14:56) Vomiting Tobacco use date assessed: 09/30/23 Fall risk assessment: No Falls in past year Last assessed Fall Risk: 09/30/23 Dental Screening Dental Screen Date: 09/30/23 Did you have a dental visit in the last 12 months?: Yes Did you have a dental problem in the last 6 months where you did not have access to dental care?: No Was dental information given to patient?: Patient has dentist HPI HPI Comments History of Present Illness Details 73 year old female with history of htn, RA wiht residential steroid use, sarcoidosis, MGUS presents to the office with her daughter, Torrie, for post hospital discharge follow up. She was admitted to [facility] from 08/18-09/18 with a very complicated stay. Diagnosed with strep pneumoniae pneumonia/bacteremia septic shock with multi system organ failure requiring intubation x2. She was extubated 08/29 with subsequent probable aspiration and re-intubation on 09/03, extubated 09/04. Throughout admission was treated with multiple antibiotics including cefepime, vanco, flagyl and finally ceftriaxone once blood cultures resulted with strep pneumoniae at the recommendation of infectious disease. There was also question of strep meningitis but LP was deferred by family and was thought to likely be negative anyway given antibiotic administration. ICU course complicated by type 2 nstemi with troponin elevated up to 7500 on day 2 of admission and was followed by cardiology Thought to be stress vs sepsis- induced cardiomyopathy with suspected underlying stable coronary disease. She also had an isolated episode of atrial fibrillation with RVR. Echo revealed moderate-severe LV systolic dysfunction with EF 30-35% and impaired relaxation filling pattern. She was started on carvedilol which was maximized at 25mg BID with stable pressures on discharge. Amlodipine was discontinued. She was started on eliquis for anticoagulation. She was also admitted with BRE and followed by nephrology with renal biopsy showing chronic interstitial changes on prelim path report. She required HD started on 08/21 with tunneled RIJ catheter placed on 09/08 with gradual recovery of renal function. Likely ATN. Lisinopril was held throughout admission due to renal function. She was also notably anemic throughout admission, likely in the setting of acute illness, with H/H above transfusion threshold and stable overall. Unfortunately, secondary to septicemia/shock, she did experience sensorineural hearing loss which has not yet recovered. MRI brain w/wo contrast unremarkable. No aminoglycosides administered. She was discharged to [facility] for STR and to continue HD per nephrology recommendations and completed HD on 09/20. Per pt and her daughter, physical rehab was going well but there were significant concerns about medications being missed and staffing concerns. She was discharged home on 09/30 at the request of family. While at SNF, felt that eliquis was causing episodes of vomiting and syncope so this was discontinued and changed to coumadin. Per pt, the vomiting episodes did resolve. These symptoms did occur two days after her first HD outpt. On review of chart, it does not appear INR's have been followed. However, CBC and BMP has been followed with renal function returning to baseline and electrolyte levels normal. H/H stable. She has continued on carvedilol 25mg BID but has been checking blood pressures with systolic BP 90'2 low 100s and associated lightheadedness. Now at home, patient has support of and daughter who assist with care. She is still not back to functional baseline. Prior to hospitalization was ambulating without assistive device. Now requires walker or transfer chair at all time. Has difficulty with transfers and requries assist with toileting. SHe is still very weak and fatigued. She does report she is swallowing better and has advanced to regular diet with liquids. Repeat MBS was normal per family. [facility] Medical History Blood poisoning due to Streptococcus pneumoniae bacteria Septic shock due to streptococcal infection Acute hypoxic respiratory failure Type 2 PA (myocardial infarction) Metabolic acidosis Hyperphosphatemia Septic shock Uremic encephalopathy Ischemic hepatitis Hypoxia Pancreatitis, acute Hypomagnesemia Rheumatoid arthritis involving multiple joints Sarcoidosis Hearing loss Streptococcal pneumonia Xanthelasma Pulmonary nodules Mild recurrent major depression Emphysema lung Hip bursitis Depression Essential hypertension Surgical History Xanthelasma of lower eyelid History of coronary angiogram Hx of left knee surgery H/O cataract removal with insertion of prosthetic lens H/O laminectomy Carpal tunnel syndrome on both sides Family History Mother Leukemia Father Diabetes Heart disease Brother Heart disease Other No family history of cancer Social History Household Members: Spouse Housing: House Are you a primary health care recruiter to a significant other at home: Yes (Son) Do you presently have visiting nurse or other home services: No Unable to assess alcohol history related to: Unknown Alcohol intake: current Alcohol intake frequency: holidays/special occasions only Alcohol type: wine Comment: bilateral wrist restraints--intubated Patient Tobacco Use Status: Former Tobacco user Tobacco use type: Cigarette e-Cigarette/Vaping Use: Never Used Second Hand Smoke Exposure: No Substance Use Type: Marijuana Advance Directives: Yes service: No Current occupational status: employed and retired Cognitive needs: Yes (wheelchair, walker,) Hearing needs: No Vision needs: Yes (reading glasses) Questionnaire PHQ-9 Over the last 2 weeks, how often have you been bothered by any of the following problems? 1. Little interest or pleasure in doing things: not at all 2. Feeling down, depressed, or hopeless: several days 3. Trouble falling or staying asleep, or sleeping too much: more than half the days 4. Feeling tired or having little energy: several days 5. Poor appetite or overeating: several days 6. Feeling bad about yourself - or that you are a failure or have let yourself or your family down: not at all 7. Trouble concentrating on things, such as reading the newspaper or watching television: not at all 8. Moving or speaking so slowly that other people could have noticed. Or the opposite - being so fidgety or restless that you have been moving around a lot more than usual: not at all 9. Thoughts that you would be better off or of hurting yourself in some w ay: not at all Total score: 5 Source: Developed by Drs. Alex Segovia, Fabiola Colón, Florentin Stevens and colleagues, with an educational josselyn from [employer]. Thrive Questionnaire Date Thrive assessed: 09/30/23 I am a: Patient What is your living situation today?: I have a steady place to live Within the past 12 months, did the food you bought not last and you didn't have the money to get more?: Never true Within the past 12 months, did you worry whether your food would run out before you got money to buy more?: Never true Do you have trouble paying for medicines?: No Do you have trouble getting transportation to medical appointments?: No Do you have trouble paying your heating and electricity bill?: No Do you have trouble taking care of your child, family member or friend?: No Do you have trouble with day-to-day activities such as bathing, preparing meals, shopping, managing finances, etc.?: No Are you currently unemployed and looking for a job?: No Are you interested in more education?: No Currently or been in a relationship where the following occur: no concerns reported AUDIT C Alcohol Use Questionnaire (AUDIT-C) 1. How often do you have a drink containing alcohol?: Monthly or less 2. How many drinks containing alcohol do you have on a typical day when you are drinking?: 1 or 2 Total Score: 1 LUPIS-7 AMB Questionnaire LUPIS-7 Date LUPIS - 7 assessed: 09/30/23 Feeling nervous, anxious, or on edge: 1 = Several days Not being able to stop or control worryin = Not at all Worrying too much about different things: 0 = Not at all Trouble relaxin = Several days Being so restless that it is hard to sit still: 0 = Not at all Becoming easily annoyed or irritable: 0 = Not at all Feeling afraid as if something awful might happen: 0 = Not at all Total LUPIS-7 score (0-4 normal; 5-9 mild; 10-14 moderate; 15-21 severe): 2 Source: Developed by Fabiola Sumner Kurt Kroenke and colleagues, with an educational josselyn from [employer]. Physical exam (Primary Care) Vital Signs: Last Vital Signs Pulse 109 H 09/30/23 14:50 BP 110/70 09/30/23 14:50 Pulse Ox 96 09/30/23 14:50 Oxygen Delivery Method Room Air 09/30/23 14:50 BMI result Body Mass Index 26.3 Tobacco/Smoking Status: Tobacco use Status Tobacco use date assessed 09/30/23 09/30/23 14:59 Patient Tobacco Use Status Former Tobacco user 09/30/23 14:48 Tobacco use type Cigarette 09/30/23 14:48 e-Cigarette/Vaping Use Never Used 09/30/23 14:48 PHQ-9: PHQ-9 Score PHQ-9: Total score 5 10/01/23 09:17 Thrive Assessment: Date of Thrive Assessment Date Thrive assessed 09/30/23 09/30/23 14:48 Currently or been in a relationship where the following occur: no concerns reported Const Other: Constitutional - Awake and Alert, weak appearingm No apparent distress Eyes - PERRLA, EOMI Cardiovascular - S1S2, RRR, No edema Respiratory - Normal lung expansion, Normal respiratory effort, No respiratory distress, CTA bilaterally Skin - Warm/Dry Neurological - Alert & oriented x3 Psychological - Appropriate affect Results Reviewed Results Reviewed: cbc, cmp, cxr, blood cultures, MR brain w/wo, h&p, discharge summary, card consult, nephro consult, ID consult Assessment and Plan Assessment & Plan (1) Septic shock due to streptococcal infection: Code(s): A40.9 - Streptococcal sepsis, unspecified; R65.21 - Severe sepsis with septic shock Plan: Resolved following prolonged hospitalization with 2 intubations with successful extubation. Completed course of antibiotics as above, discharged on ceftriaxone 1g daily completed on 09/26. She is still quite weak 2/2 prolonged hospitalization with gross deconditioning and would benefit from further services in the home. She is referred to [facility] for further nursing, PT, OT services. She is up to date on pneumococcal and prevnar vaccines. Given severity of symptoms/hospital course, recommend she continue off of prednisone or any other immunosuppressive drugs for RA, especially given lack of joint pain/swelling. Follow up with rheumatology as scheduled. Follow up with pulmonology as scheduled. Would remain off prednisone as above for the time being. Discuss resuming for sarcoidosis with pulmonolgy. (2) Blood poisoning due to Streptococcus pneumoniae bacteria: Code(s): R78.81 - Bacteremia Plan: Secondary to strep pneumoniae pneumonia. Resolved. Completed ceftriaxone 1g daily via midline, completed 14 day course on 09/26. Midline removed. (3) BRE (acute kidney injury): Code(s): N17.9 - Acute kidney failure, unspecified Plan: IN the setting of septic shock requiring HD. Completed HD on 09/20 and will have RIJ catheter removed 10/01 by IR. Repeat labs 09/28 reviewed showing BRE return to baseline. Given soft blood pressures, will continue holding ACEI/ARB, though ARB recommended by cardiology for neurohormonal modulation. Follow up with [facility]rology as scheduled 11/02. (4) Left ventricular systolic dysfunction (LVSD): Code(s): I51.9 - Heart disease, unspecified Plan: ECHO 08/19 shows mod-severe LV systolic dysfunction with suspicion for stress vs sepsis induced cardiomyopathy with probable underlying stable coronary disease. She should continue cardevilol for neurohormonal modulation but will decrease dose to 12.5mg BID given soft blood pressures and lightheadedness. She will follow up with Dr. Whittington on 10/13 as scheduled. If blood pressures allow at that time, can consider starting ARB (in place of ACEI) for further help neurohormonal modulation. Follow up with cardiology for further ischemic work up as advised. (5) Paroxysmal atrial fibrillation: Code(s): I48.0 - Paroxysmal atrial fibrillation Plan: Rate controlled on recheck with HR 90. Continue reduced dose carvedilol as above for rate control. Discussed continuing coumadin for anticoaguation and patient is not keep on frequent lab draws to dictate appropriate dosing and therapeutic levels. Side effect reported to have occurred with eliquis are less likely. Discussed trial of xarelto for anticoagulation and they are in agreement. Prescribed xarelto 20mg daily. Monitor for any signs of bleeding. Check CBC in one week. Recommend holding plavix for now given full AC with xarelto. Follow up with Dr. Torrez for PAD and further recommendations. (6) Acute hypoxic respiratory failure: Code(s): J96.01 - Acute respiratory failure with hypoxia Plan: 2/2 to above requiring intubation. Resolved. (7) Type 2 PA (myocardial infarction): Code(s): I21.A1 - Myocardial infarction type 2 Plan: Likely demand in setting of stress/sepsis induced cardiomyopathy. Cannot rule out ischemic cardiomyopathy. FOlow up with cardiology on 10/13 as scheduled for consideration of ischemic work up. (8) Sensorineural deafness: Code(s): H90.5 - Unspecified sensorineural hearing loss Plan: Ongoing secondary to septicemia/shock. No aminoglycosides administered during hospitalization. Follow up with ENT as scheduled. Recommend bringing disc with MRI imaging to appt. Orders: Orders Complete Blood Count Auto Diff 09/30/23 D64.9 - Anemia, unspecified Ferritin Today D64.9 - Anemia, unspecified Basic Metabolic Panel 09/30/23 N17.9 - Acute kidney failure, unspecified IRON PROFILE Today D64.9 - Anemia, unspecified [facility]errals [facility] Referral A40.9 - Streptococcal sepsis, unspecified, R53.1 - Weakness, R65.21 - Severe sepsis with septic shock, R78.81 - Bacteremia, Z09 - Encounter for follow-up examination after completed treatment for conditions other than malignant neoplasm, Z74.09 - Other reduced mobility Medications: New carvedilol must administer with a meal/food 12.5 mg PO BID 180 tabs 0RF rivaroxaban (Xarelto) must administer with evening meal 20 mg PO QPM 90 tabs 0RF Refilled bupropion HCl 150 mg PO QAM 90 days 90 tabs 0RF Discontinued tramadol Discontinued Reason: Doctor's Order 50 mg PO Q6H 30 days PRN 20 tabs 0RF Pain I10 - Essential (primary) hypertension abatacept (Orencia ClickJect) Discontinued Reason: Doctor's Order 125 mg subcut QWEEK 4 mL 3RF prednisone Discontinued Reason: Doctor's Order 10 mg (2 x 5 mg) PO DAILY 60 tabs 0RF NS M06.00 - Rheumatoid arthritis without rheumatoid factor, unspecified site Patient Instructions: Follow up with specialists as scheduled Call ENT to schedule appt regarding sensorineural hearing loss. security guard supervisor disc with MRI images for ENT provider Reduce carvedilol to 12.5mg twice daily due to low normal blood pressures and lightheadedness. Check blood pressures at home. Goal <140/90. Follow up with cardiology to see if lisinopril/losartan can be resumed/initiated if repeat blood pressures allow. Stop coumadin. Start xarelto 20mg every evening with dinner. Monitor for bleeding. Check blood counts in 1 week. Continue wellbutrin. You are being referred for [facility] services for nursing, PT, OT Hold on resuming any prednisone or other immune suppressing agents for the time being. Follow up with rheumatology as scheduled. Coding Level of Care Code Est Pt Level 5 (47381) Diagnoses Septic shock due to streptococcal infection A40.9; R65.21 Blood poisoning due to Streptococcus pneumoniae bacteria R78.81 BRE (acute kidney injury) N17.9 Left ventricular systolic dysfunction (LVSD) I51.9 Paroxysmal atrial fibrillation I48.0 Acute hypoxic respiratory failure J96.01 Type 2 PA (myocardial infarction) I21.A1 Sensorineural deafness H90.5 Time Spent (min) 65 Comment time spent reviewing, interview with pt/dtr, time spent on documentation
[2023-09-30 14:50] VITALS: BP 110/70; PULSE 109; O2SAT 96; BMI 26.3
== END 2023-09-30 16:04 | disposition home or self-care (01) ==
PROVIDERS: PCP Internal Medicine; Visit Provider Physician Assistant
DX: A40.9 Streptococcal sepsis, unspecified (principal); R65.21 Severe sepsis with septic shock; R78.81 Bacteremia; N17.9 Acute kidney failure, unspecified; I51.9 Heart disease, unspecified; I48.0 Paroxysmal atrial fibrillation; J96.01 Acute respiratory failure with hypoxia; I21.A1 Myocardial infarction type 2; H90.5 Unspecified sensorineural hearing loss
CPT/HCPCS: 99215

== ENCOUNTER 2023-10-01 08:12 | Outpatient (REF) | payer MEDICARE, SELFPAY ==
--- NOTE | ~2023-10-01 | IR_ITS ---
Permacath removal Patient presents with a tunneled dialysis catheter. Patient no longer requires dialysis. Referring physician requests removal. The right chest was prepped and draped in routine sterile fashion. 1% lidocaine was used for local anesthesia. Using blunt dissection, the tunneled dialysis catheter was removed from the chest wall without complication. After hemostasis was obtained, a dry sterile dressing was applied. Patient tolerated the procedure well. IR/IR cvc remove any age Impression: Permacath removal This procedure was performed by Willie Treviño PA-C and supervised by Dr. Martines
== END 2023-10-01 08:13 | disposition home or self-care (01) ==
LOC: HO.RADIR 08:12
PROVIDERS: PCP Internal Medicine; Visit Provider Internal Medicine Nephrology
DX: Z13.89 Encounter for screening for other disorder (principal)

== ENCOUNTER 2023-10-01 09:03 | Emergency (ER) | payer MEDICARE, SELFPAY ==
--- NOTE | ~2023-10-01 | XR_ITS ---
EXAMINATION: XR CHEST CLINICAL INFORMATION: Syncope COMPARISON: Chest radiograph from 09/03/2020 3I RCC inserted from 09/08/2023 TECHNIQUE: Frontal view of the chest was obtained. FINDINGS: Interval removal of right-sided tunneled dialysis catheter. Bilateral low lung volumes. Slight elevation the right hemidiaphragm. Chronic interstitial lung markings. Slight blunting of the right costophrenic recess redemonstrated potentially reflecting scarring. Right basilar atelectasis. No pneumothorax. Trachea is midline. Vascular stent cranial to the aortic arch. Cardiac mediastinal silhouette is not enlarged. Aorta demonstrates atherosclerotic calcifications. No large pleural effusion. Osseous structures are intact. Soft tissues are unremarkable. XR/XR chest 1V IMPRESSION: 1. Interval removal of right-sided tunneled dialysis catheter. 2. Bilateral low lung volumes. 3. Slight elevation the right hemidiaphragm. 4. Chronic interstitial lung markings. 5. Slight blunting of the right costophrenic recess redemonstrated potentially reflecting scarring. 6. Right basilar atelectasis.
--- NOTE | 2023-10-01 09:13 | ECG_ITS ---
Test Reason : SYNCOPE Blood Pressure : / mmHG Vent. Rate : 077 BPM Atrial Rate : 077 BPM P-R Int : 174 ms QRS Dur : 094 ms QT Int : 392 ms P-R-T Axes : 063 045 076 degrees QTc Int : 443 ms Normal sinus rhythm Possible Left atrial enlargement Nonspecific ST abnormality Abnormal ECG When compared with ECG of 10-SEP-2023 13:48, No significant change was found Referred By: Samantha Buck Electronically Signed By:LIAN ROSE MD
[2023-10-01 09:17] VITALS: BP 109/47; PULSE 79; RESP 18; TEMP 36.6; O2SAT 94; BMI 27.7
[2023-10-01 09:34] VITALS: BP 113/47; PULSE 66
[2023-10-01 09:35] LABS: MANUAL DIFF FLAG NO
[2023-10-01 09:36] VITALS: BP 89/44; PULSE 81
--- NOTE | 2023-10-01 09:39 | ED.GENADULT ---
HPI - General Adult General Chief complaint: Syncope Stated complaint: Syncope Time Seen by Provider: 10/01/23 09:10 Source: patient and family ( Daughter) Mode of arrival: ambulatory Limitations: no limitations History of Present Illness HPI narrative: a 73-year-old female who had a syncopal episode at the Radiology Department after removal of adilia A cath from the right side of the chest this morning, patient had 1 syncopal episode witnessed by daughter patient became pale rolled her eyes up and passed out for few seconds the patient spontaneously regained consciousness. Declined CP or abdominal pain or shortness of breath. Patient was hospitalized last month then was discharged to rehab where she Stayed for 10 days and discharged yesterday. Related Data Previous Rx's Medication Instructions Recorded lisinopril 40 mg tablet 40 mg PO DAILY #90 tabs 05/31/23 albuterol sulfate 90 mcg/actuation 2 inh inhalation Q6H PRN shortness 06/05/23 aerosol inhaler of breath or wheezing 30 days #18 grams peg [id number] 1 2 drp ophthalmic (eye) Q4H PRN Dry 09/18/23 %-0.2 %-0.2 % eye drops Eyes #15 mL (Artificial Tears ([id number])) bupropion HCl 150 mg 24 hr tablet, 150 mg PO QAM 90 days #90 tabs 09/30/23 extended release (Wellbutrin XL) carvedilol 12.5 mg tablet 12.5 mg PO BID #180 tabs 09/30/23 rivaroxaban 20 mg tablet (Xarelto) 20 mg PO QPM #90 tabs 09/30/23 nitrofurantoin 100 mg PO Q12H 7 days #14 caps 10/01/23 monohydrate/macrocrystals 100 mg capsule (Macrobid) Allergies Allergy/AdvReac Type Severity Reaction Status Date / Time Qlzlnmx-COR-NbU Reductase Allergy Severe ANAPHYLACTI Verified 09/30/23 14:56 Inhibitor C [EJOLACV-NCR-KVM REDUCTASE INHIBITOR] apixaban [From Eliquis] Allergy Intermediate Vomiting Verified 09/30/23 14:56 Review of Systems Review of Systems: all other systems are reviewed and are negative Constitutional: Reports as per HPI and Reports no additional constitutional complaints Eyes: Reports as per HPI and Reports no additional eye complaints Reports system reviewed and no additional complaints, except as documented Cardiovascular: Reports as per HPI and Reports no additional cardiovascular complaints Respiratory: Reports as per HPI and Reports no additional respiratory complaints Gastrointestinal: Reports as per HPI and Reports no additional gastrointestinal complaints Genitourinary: Reports no additional female genitourinary complaints Musculoskeletal: Reports no additional musculoskeletal complaints Skin/Breast: Reports system reviewed and no additional complaints, except as docu Psychiatric: Reports no additional psychiatric complaints Endocrine: Reports no additional endocrine complaints Hematologic/Lymphatic: Reports no additional hematologic/lymphatic complaints Allergic/Immunologic: Reports no additional allergic/immunologic complaints Reports system reviewed and no additional complaints, except as documented and Reports Abnormal speech present [facility] Past Medical History Onset Date is defined in the Problem List Problems that require an onset date and time if occurred within 24 hrs of arrival to the ED Aortic Dissection and Rupture; Neurologic impairment; Cardiopulmonary Arrest; Endotracheal Intubation; Insertion or Replacement of Mechanical Circulatory Assist Device Medical History Blood poisoning due to Streptococcus pneumoniae bacteria Septic shock due to streptococcal infection Acute hypoxic respiratory failure Type 2 MA (myocardial infarction) Metabolic acidosis Hyperphosphatemia Septic shock Uremic encephalopathy Ischemic hepatitis Hypoxia Pancreatitis, acute Hypomagnesemia Rheumatoid arthritis involving multiple joints Sarcoidosis Hearing loss Streptococcal pneumonia Xanthelasma Pulmonary nodules Mild recurrent major depression Emphysema lung Hip bursitis Depression Essential hypertension Surgical History Xanthelasma of lower eyelid History of coronary angiogram Hx of left knee surgery H/O cataract removal with insertion of prosthetic lens H/O laminectomy Carpal tunnel syndrome on both sides Family History Family History Mother Leukemia Father Diabetes Heart disease Brother Heart disease Other No family history of cancer Social History Social History Household Members: Spouse Housing: House Are you a primary career coach to a significant other at home: Yes (Son) Do you presently have visiting nurse or other home services: No Unable to assess alcohol history related to: Unknown Alcohol intake: current Alcohol intake frequency: holidays/special occasions only Alcohol type: wine Comment: bilateral wrist restraints--intubated Patient Tobacco Use Status: Former Tobacco user Tobacco use type: Cigarette e-Cigarette/Vaping Use: Never Used Second Hand Smoke Exposure: No Substance Use Type: Marijuana Advance Directives: Yes service: No Current occupational status: employed and retired Cognitive needs: Yes (wheelchair, walker,) Hearing needs: No Vision needs: Yes (reading glasses) Physical Exam ED Vital Signs: Vital Signs - 24 hr 10/01/23 09:17 10/01/23 09:34 10/01/23 09:36 Temperature 97.9 F Pulse Rate 79 66 81 Respiratory Rate 18 Blood Pressure 109/47 L 113/47 L 89/44 L Pulse Oximetry 94 Oxygen Delivery Method Room Air 10/01/23 10:25 10/01/23 10:46 Temperature Pulse Rate 82 81 Respiratory Rate 14 20 Blood Pressure 102/45 L 102/45 L Pulse Oximetry 98 98 Oxygen Delivery Method Room Air Room Air BMI result Body Mass Index 27.7 Vital signs have been reviewed and appear to be correct. Blood pressure elevated. Heart rate normal. Respiratory rate normal. Temperature normal. Oxygen saturation normal. Appearance: Alert. pale, Oriented X3. No acute distress. Head: Normal external exam. Normocephalic. Atraumatic. No Luo signs noted. No raccoon eyes noted Eyes: PERRLA. EOMI. Conjunctiva and sclera normal. Eyelids normal. ENT: TM's Normal. Pharynx normal. Uvula midline. Moist mucous membranes. No trismus noted. No drooling noted. No muffled voice noted. Neck: Normal inspection. Neck supple. FROM. No adenopathy. Thyroid Normal. No meningeal signs. No neck mass noted. CVS: Normal heart rate and rhythm. Heart sound normal. No murmurs noted. Pulses normal throughout. Respiratory: No respiratory distress. Painless inspiration. Breath sounds normal. No wheezes/rales/rhonchi noted. Chest nontender. No accessory muscle usage noted or decreased air movement noted. Abdomen: Soft and nontender. Bowel sounds normal in all 4 quadrants. No distention noted. No organomegaly noted. No visible injury noted. Back: No CVA tenderness. Full range of motion noted. Skin: Skin warm and dry. Normal skin color. Normal skin turgor. No rashes/lesions/lacerations noted. Extremities: No lower extremity edema. Extremities exhibit normal range of motion. Extremities nontender. Neuro: Oriented X 3. Cranial nerve exam: II-XII are grossly intact No motor deficit. No sensory deficit. Reflexes normal. Course Reevaluation(s) Reevaluation #1: Dehydration, hypotension, UTI, and COVID positive. Will hydrate, admit, treat with Macrobid. Do not meet criteria for SIRS. Time: 11:19 Reevaluation #2: the plan was to admit the patient, patient is refusing admission patient is already evaluated by Dr. Strong who recommended to discharge the patient home. Patient received IV fluids, blood pressure is 102/45, able to ambulate with a walker in the emergency department with stable VS. Will discharge to follow-up with PCP. Time: 12:01 Medications Administered Discontinued Medications Generic Name Dose Route Start Last Admin Trade Name Freq PRN Reason Stop Dose Admin Sodium Chloride 1,000 mls @ 999 mls/hr 10/01/23 09:19 10/01/23 11:44 Ns IV 10/01/23 10:19 Infused .Q1H1M ONE Infusion Medical Decision Making Differential Diagnosis Differential Diagnoses: The differential diagnosis associated with the presentation includes ( ACS, dehydration, orthostatic hypotension, electrolyte abnormality, severe anemia, upper respiratory viral infection, pleural effusion , UTI.) Admission/Observation Consideration of admission/observation: Escalation of care including admission/observation considered Consult Healthcare Provider Management of the patient was discussed with: Hospitalist ( ) Lab Data MDM Lab Attestation statement: I reviewed the patient's lab results. 10/01/23 09:31 10/01/23 09:31 Labs: Lab Results 10/01/23 10/01/23 Range/Units 09:31 10:36 WBC 8.8 (4.8-10.8) X10*3/uL RBC 2.91 L (4.20-5.50) X10*6/uL Hgb 8.4 L (12.0-16.0) g/dl Hct 26.2 L (37.0-47.0) % MCV 90.0 (80.0-98.0) fL MCH 28.9 (27.0-33.0) pg MCHC 32.1 (31.0-35.0) g/dl RDW 14.8 (11.0-16.0) % Plt Count 300 (160-400) X10*3/uL MPV 9.7 (9.4-12.3) fL Immature Gran % (Auto) 1.9 H (0.0-0.4) % Neut % (Auto) 61.4 (45-73) % Lymph % (Auto) 20.3 (20-40) % [place]imes % (Auto) 10.3 (2-11) % Eos % (Auto) 5.4 H (0-4) % Baso % (Auto) 0.7 (0-2) % Lymph # (Auto) 1.8 (1.2-4.9) X10*3/uL [place] # (Auto) 0.9 (0.1-1.2) X10*3/uL Eos # (Auto) 0.5 H (0.0-0.4) X10*3/uL Baso # (Auto) 0.1 (0.0-0.2) X10*3/uL Abs Immat Gran (auto) 0.17 H (0.00-0.03) X10*3/uL Absolute Neuts (auto) 5.4 (2.0-8.3) x10*3/uL Absolute Nucleated RBC 0.000 (0.0-0.012) X10*3/uL Nucleated RBC % (auto) 0.0 (0.0-0.2) /100WBC Sodium 134 L (135-145) mmol/L Potassium 3.1 L (3.3-5.1) mmol/L Chloride 98 (96-108) mmol/L Carbon Dioxide 25 (22-29) mmol/L Anion Gap 14 (12-20) BUN 25 H (9-16) mg/dL Creatinine 0.97 (0.5-1.4) mg/dL Estim Creat Clear Calc 54.4 Estimated GFR 56 Random Glucose 108 (60-115) mg/dL Calcium 8.3 L (8.4-10.2) mg/dL Total Bilirubin 0.3 (0.0-1.0) mg/dL Direct Bilirubin 0.1 (0.0-0.5) mg/dL AST 36 H (5-31) U/L ALT 12 (0-31) U/L Alkaline Phosphatase 87 (39-117) U/L Troponin I High Sens 11.4 (<3.5-17.0) ng/L B-Natriuretic Peptide 87 (<100) pg/mL Total Protein 7.3 (6.5-8.0) g/dL Albumin 3.1 L (3.5-5.0) g/dL Lipase 76 (8-78) U/L Urine Color Dark Yellow Urine Appearance Turbid Urine pH 6.0 (5.0-9.0) Ur Specific [place] <= 1.005 (1.005-1.025) Urine Protein Negative (Neg-Trace) mg/dL Urine Glucose (UA) Negative (Negative) mg/dL Urine Ketones Negative (Negative) mg/dL Urine Blood Moderate (2+) H (Negative) Urine Nitrite Negative (Negative) Ur Leukocyte Esterase Large (3+) H (Negative) Urine RBC >20 H (0-2) /HPF Urine WBC 6-10 H (0-5) /HPF Ur Squamous Epith Cells 11-20 (0-2) /HPF Other Crystals Present Urine Bacteria 4+ (None Seen) Hyaline Casts 3-5 (0-2) /LPF Influenza Type A (PCR) NEGATIVE (Negative) Influenza Type B (PCR) NEGATIVE (Negative) RSV RNA Qual (PCR) NEGATIVE (Negative) SARS-CoV-2 RNA (RT-PCR) POSITIVE A (Negative) Independent Interpretation I performed an independent interpretation of an: EKG ( normal sinus rhythm at 77 beats per minute, artifact, no ST elevation.) and Plain X-Ray (1. Interval removal of right-sided tunneled dialysis catheter. 2. Bilateral low lung volumes. 3. Slight elevation the right hemidiaphragm. 4. Chronic interstitial lung markings. 5. Slight blunting of the right costophrenic recess redemonstrated potentially reflecting scarring. 6. Right basilar) Radiology Impression Discussion of test interpretation with radiology: I have reviewed the radiologist's reading. Chronic Conditions Patient?s care impacted by: Other ( COVID infection, dehydration.) Discharge Plan Discharge Clinical Impression: Acute dehydration, Orthostatic hypotension, Syncope, Acute UTI Patient Disposition: Home, Self-Care Instructions: Urinary Tract Infection in Women (ED) Prescriptions: New nitrofurantoin monohyd/m-cryst [Macrobid] 100 mg capsule 100 mg PO Q12H 7 Days Qty: 14 0RF Rx Instructions: must administer with a meal/food No Action lisinopril 40 mg tablet 40 mg PO DAILY Qty: 90 2RF Hold Instructions: Resume on 10/21/23. start once cleared by nephrology albuterol sulfate 90 mcg/actuation HFA aerosol inhaler 2 inh inhalation Q6H PRN (Reason: shortness of breath or wheezing) 30 Days Qty: 18 12RF Artificial Tears([id number]) 1-0.2-0.2 % Drops 2 drp ophthalmic (eye) Q4H PRN (Reason: Dry Eyes) Qty: 15 0RF bupropion HCl [Wellbutrin XL] 150 mg tablet extended release 24 hr 150 mg PO QAM 90 Days Qty: 90 0RF carvedilol 12.5 mg tablet 12.5 mg PO BID Qty: 180 0RF Rx Instructions: must administer with a meal/food Xarelto 20 mg tablet 20 mg PO QPM Qty: 90 0RF Rx Instructions: must administer with evening meal
[2023-10-01 09:40] LABS: Basophils Absolute Auto 0.1 X10*3/uL (0.0-0.2); Basophils Percent Auto 0.7 % (0-2); Eosinophils Absolute Auto 0.5 X10*3/uL (0.0-0.4); Eosinophils Percent Auto 5.4 % (0-4); Hematocrit 26.2 % (37.0-47.0); Hemoglobin 8.4 g/dl (12.0-16.0); Imm Gran Abs Auto 0.17 X10*3/uL (0.00-0.03); Imm Gran Pct Auto 1.9 % (0.0-0.4); Lymphocytes Absolute Auto 1.8 X10*3/uL (1.2-4.9); Lymphocytes Percent Auto 20.3 % (20-40); Mean Corpuscular HGB Conc 32.1 g/dl (31.0-35.0); Mean Corpuscular Hemoglobin 28.9 pg (27.0-33.0); Mean Platelet Volume 9.7 fL (9.4-12.3); Monocytes Absolute Auto 0.9 X10*3/uL (0.1-1.2); Monocytes Percent Auto 10.3 % (2-11); Neutrophils Absolute Auto 5.4 x10*3/uL (2.0-8.3); Neutrophils Percent Auto 61.4 % (45-73); Platelet Count 300 X10*3/uL (160-400); Red Blood Count 2.91 X10*6/uL (4.20-5.50); Red Cell Distribution Width 14.8 % (11.0-16.0); White Blood Count 8.8 X10*3/uL (4.8-10.8)
[2023-10-01] MEDS: 0.9 % Sodium Chloride 1,000 ML 999 ML IV (09:53)
[2023-10-01 09:59] LABS: Alanine Aminotransferase 12 U/L (0-31); Albumin Level 3.1 g/dL (3.5-5.0); Alkaline Phosphatase 87 U/L (39-117); Anion Gap 14 (12-20); Aspartate Amino Transferase 36 U/L (5-31); Bilirubin Direct 0.1 mg/dL (0.0-0.5); Bilirubin Total 0.3 mg/dL (0.0-1.0); Blood Urea Nitrogen 25 mg/dL (9-16); Calcium 8.3 mg/dL (8.4-10.2); Carbon Dioxide 25 mmol/L (22-29); Chloride 98 mmol/L (96-108); Creatinine Clr Calc Pharmacy 54.4; Estimated Glomerular Filt Rate 56; Glucose Random 108 mg/dL (60-115); Lipase 76 U/L (8-78); Potassium 3.1 mmol/L (3.3-5.1); Sodium 134 mmol/L (135-145); Total Protein 7.3 g/dL (6.5-8.0)
[2023-10-01 10:03] LABS: B Type Natriuretic Peptide 87 pg/mL (<100)
[2023-10-01 10:04] LABS: Troponin-I High Sensitivity 11.4 ng/L (<3.5-17.0)
[2023-10-01 10:21] LABS: Influenza A PCR NEGATIVE (Negative); Influenza B PCR NEGATIVE (Negative); Resp Syncy Virus RNA Qual PCR NEGATIVE (Negative); SARS COV2 PCR INHOUSE POSITIVE (Negative)
[2023-10-01 10:25] VITALS: BP 102/45; PULSE 82; RESP 14; O2SAT 98
[2023-10-01 10:42] LABS: Appearance Urine Turbid; Color Urine Dark Yellow; Glucose Urine UA Negative (Negative); Leukocyte Esterase Urine Large (3+) (Negative); Nitrite Urine Negative (Negative); Specific Gravity - Urine <= 1.005 (1.005-1.025); UMIC TRIGGER UACC YES; Urine Blood Moderate (2+) (Negative); Urine Ketones Negative (Negative); Urine Protein Negative (Neg-Trace)
[2023-10-01 10:46] VITALS: BP 102/45; PULSE 81; RESP 20; O2SAT 98
[2023-10-01 10:54] LABS: Bacteria Urine 4+ (None Seen); Other Crystals Urine Present; RBC Urine >20 /HPF (0-2); UACC Culture Trigger YES
--- NOTE | 2023-10-01 11:59 | PC.NURSE ---
Pt ambulatory with a steady gait, feels good. Reports she feels safe and wants to go home, does not want to be admitted.
== END 2023-10-01 12:17 | disposition home or self-care (01) ==
PROVIDERS: Emergency Provider Emergency Medicine
DX: U07.1 COVID-19 (principal); R55 Syncope and collapse; E86.0 Dehydration; I95.1 Orthostatic hypotension; N39.0 Urinary tract infection, site not specified
CPT/HCPCS: 0241U; 36415; 71045; 80048; 80076; 81001; 83690; 83880; 84484; 85025; 87086; 93005; 96360; 96361; 99284

== ENCOUNTER → 2023-10-01 09:13 | Outpatient (BNV) | payer MEDICARE, SELFPAY | PROVIDERS: Emergency Provider Emergency Medicine; Visit Provider Internal Medicine Cardiovascular Disease | DX: R94.31 Abnormal electrocardiogram [ECG] [EKG] (principal); R55 Syncope and collapse | CPT/HCPCS: 93010 ==

== ENCOUNTER 2023-10-05 07:18 | Outpatient (REF) | payer MEDICARE, SELFPAY | END 2023-10-05 07:19 | disposition home or self-care (01) | LOC: HO.MMNH2L 07:18 | PROVIDERS: Visit Provider Family Medicine | DX: Z13.89 Encounter for screening for other disorder (principal) ==

== ENCOUNTER 2023-10-13 10:11 | Outpatient (AMB) | payer MEDICARE, SELFPAY ==
--- NOTE | 2023-10-13 10:22 | A.OFFVIS_ITS ---
Intake Vital Signs 10/13/23 10:23 Height 5 ft 6 in Weight 165 lb BMI 26.6 BP 140/70 H Blood Pressure Location Lt brachial Position Sitting Pulse 83 Intake Visit Reasons: post hospitalization follow up Allergies Ojvezft-SLU-QgV Reductase Inhibitor [[id number]-[id number]-HDH REDUCTASE INHIBITOR] Allergy (Severe, Verified 09/30/23 14:56) ANAPHYLACTIC apixaban [From Eliquis] Allergy (Intermediate, Verified 09/30/23 14:56) Vomiting Medication List - Last Reconciled 10/13/23 by Noel Whittington MD albuterol sulfate 90 mcg/actuation 2 inhalations inhalation Q6H PRN 30 days bupropion HCl (Wellbutrin XL) 150 mg PO DAILY carvedilol 12.5 mg PO BID prednisone 50 mg PO DAILY rivaroxaban (Xarelto) 20 mg PO QPM HPI HPI Comments History of Present Illness Details Tasha comes for follow-up. She continues to have hearing loss. She continues to have muscle weakness and had long stay at care home facility for rehabilitation currently working at home. She has not had any new cardiac symptoms as of now. Taking all her medications. Her physical therapist has notice that heart rate climbs quickly with exertion but then settles down quickly. She denies any symptoms of palpitations at rest. Denies any shortness of breath, orthopnea, PND, leg edema. Denies any symptoms of chest tightness. Taking her medications including blood thinners. No bleeding issues or neurologic events. FORMERLY [facility], [facility] Medical History Blood poisoning due to Streptococcus pneumoniae bacteria Septic shock due to streptococcal infection Acute hypoxic respiratory failure Type 2 LA (myocardial infarction) Metabolic acidosis Hyperphosphatemia Septic shock Uremic encephalopathy Ischemic hepatitis Hypoxia Pancreatitis, acute Hypomagnesemia Rheumatoid arthritis involving multiple joints Sarcoidosis Hearing loss Streptococcal pneumonia Xanthelasma Pulmonary nodules Mild recurrent major depression Emphysema lung Hip bursitis Depression Essential hypertension Surgical History Xanthelasma of lower eyelid History of coronary angiogram Hx of left knee surgery H/O cataract removal with insertion of prosthetic lens H/O laminectomy Carpal tunnel syndrome on both sides Family History Mother Leukemia Father Diabetes Heart disease Brother Heart disease Other No family history of cancer Social History Household Members: Spouse Housing: House Are you a primary lawn care worker to a significant other at home: Yes (Son) Do you presently have visiting nurse or other home services: No Unable to assess alcohol history related to: Unknown Alcohol intake: current Alcohol intake frequency: holidays/special occasions only Alcohol type: wine Comment: bilateral wrist restraints--intubated Patient Tobacco Use Status: Former Tobacco user Tobacco use type: Cigarette e-Cigarette/Vaping Use: Never Used Second Hand Smoke Exposure: No Substance Use Type: Marijuana service: No Current occupational status: employed and retired Cognitive needs: Yes (wheelchair, walker,) Hearing needs: No Vision needs: Yes (reading glasses) Review of Systems Const Denies chills, Denies fatigue, Denies fever(s), Denies frequent falls, Denies weakness, Denies weight gain and Denies weight loss ENT Denies dizziness Card Denies chest pain, Denies leg edema, Denies lightheadedness, Denies palpitations, Denies dyspnea, Denies dyspnea on exertion, Denies orthopnea and Denies other (loss of consciousness) Resp Denies cough, Denies dyspnea and Denies dyspnea on exertion GI Denies hematochezia and Denies change in stool character Musc Denies abnormal gait, Denies muscle weakness, Denies numbness, Denies radiating pain into limb and Denies tingling Neuro Denies abnormal gait, Denies dizziness, Denies frequent falls, Denies numbness, Denies tingling and Denies weakness Endo Denies fatigue and Denies palpitations Physical Exam Vital Signs: Last Vital Signs Pulse 83 10/13/23 10:23 BP 140/70 H 10/13/23 10:23 BMI result Body Mass Index 26.6 Const General: cooperative, comfortable, no acute distress, alert and awake Nutritional Appearance: average body habitus and other (Frail) Orientation/consciousness: patient oriented x3 Limitations: wheelchair Neck Neck: Yes trachea midline, Yes supple and Yes no JVD Resp Effort & Inspection: normal respiratory effort Auscultation: clear to auscultation bilaterally Cardio Jugular venous distension: no JVD Palpation: normal PMI Rate: regular rate Rhythm: regular rhythm Heart sounds: S1 normal heart sound present, S2 normal heart sound present, no click, no gallops, no murmurs and no rubs GI Auscultation: normal bowel sounds Skin General skin exam: no rashes or lesions noted Neuro General: patient oriented x3 and no focal motor deficits Extrem General: Yes no clubbing, cyanosis or edema Assessment & Plan Assessment & Plan (1) Left ventricular systolic dysfunction (LVSD): Code(s): I51.9 - Heart disease, unspecified Plan: LV systolic dysfunction which could be multifactorial. Could be related to sepsis related cardiomyopathy and/or stress-induced cardiomyopathy. Also could be related to secondary myocardial infarction and coronary artery occlusion could be secondary to embolic event. Obstructive coronary artery disease needs to be ruled out. Will suggest a vasodilating myocardial perfusion imaging to further assess for the same. Continue carvedilol therapy for neurohormonal modulation. Not on renin angiotensin antagonist due to renal dysfunction. Currently on full oral anticoagulation with Xarelto. Continue the same. Will also repeat an echocardiogram with limited to assess if LV systolic function is normalized and would therefore make diagnose of stress-induced cardiomyopathy highly likely. Signs and symptoms of heart failure were discussed. Recommend to continue to persist with physical therapy as needed. (2) Paroxysmal atrial fibrillation: Code(s): I48.0 - Paroxysmal atrial fibrillation Plan: Paroxysmal atrial fibrillation without any prior history. At this point time she has had no recurrent symptoms suggestive of atrial fibrillation. Most likely induced by acute medical illness. Will continue full oral anticoagulation with Xarelto. Follow-up 7 day Holter monitor to see if she has any asymptomatic recurrences. Will discuss about oral anticoagulation therapy in the future again if she has no obvious recurrence of atrial fibrillation. Continue carvedilol therapy. Avoidance of stimulants was discussed. Follow up in the clinic in 2 months time, sooner p.r.n.. Thank you for allowing me to partake in her care Orders: Orders CA lexiscan stress w albert Today I51.9 - Heart disease, unspecified ECG 7 day holter monitor Today I48.0 - Paroxysmal atrial fibrillation CA echo limited Today I42.9 - Cardiomyopathy, unspecified, I51.9 - Heart disease, unspecified Coding Level of Care Code Est Pt Level 4 (11815) Diagnoses Left ventricular systolic dysfunction (LVSD) I51.9 Paroxysmal atrial fibrillation I48.0
[2023-10-13 10:23] VITALS: BP 140/70; PULSE 83; BMI 26.6
== END 2023-10-13 10:54 | disposition home or self-care (01) ==
PROVIDERS: PCP Internal Medicine; Visit Provider Internal Medicine Cardiovascular Disease
DX: I51.9 Heart disease, unspecified (principal); I48.0 Paroxysmal atrial fibrillation
CPT/HCPCS: 99214

== ENCOUNTER → 2023-10-13 10:11 | Outpatient (BNVA) | payer MEDICARE, SELFPAY | PROVIDERS: PCP Internal Medicine; Visit Provider Internal Medicine Cardiovascular Disease | DX: I51.9 Heart disease, unspecified (principal); I48.0 Paroxysmal atrial fibrillation; Z79.01 Long term (current) use of anticoagulants; Z79.899 Other long term (current) drug therapy | CPT/HCPCS: 99212 ==

== ENCOUNTER 2023-10-20 08:08 | Outpatient (REF) | payer MEDICARE, SELFPAY ==
[2023-10-20 08:52] LABS: Iron 58 mcg/dL (30-160); Percent Iron Saturation 26 % (15-50); Total Iron Binding Capacity 221 mcg/dL (228-428); Unsaturated Iron Binding 163 ug/dL
[2023-10-20 09:06] LABS: Ferritin 689 ng/mL (10-250)
== END 2023-10-20 08:09 | disposition home or self-care (01) ==
LOC: HO.LAB 08:08
PROVIDERS: Absent Provider Internal Medicine Cardiovascular Disease; PCP Internal Medicine; Visit Provider Physician Assistant
DX: D64.9 Anemia, unspecified (principal); N17.9 Acute kidney failure, unspecified
CPT/HCPCS: 36415; 82728; 83540

== ENCOUNTER 2023-10-21 16:45 | Outpatient (AMB) | payer MEDICARE, SELFPAY ==
--- NOTE | 2023-10-21 16:51 | A.OFFPC_ITS ---
Vital Signs 10/21/23 16:52 Height 5 ft 6 in Weight 164 lb BMI 26.5 BP 136/82 Blood Pressure Location Lt brachial Position Sitting Intake Visit Reasons: Post hospitalization Intake Note: Patient here for post hospitalization Supervisor Intelligence Analyst Required: No Accompanied by: Daughter Allergies Wwaxnml-FQR-NjU Reductase Inhibitor [CEFAFHZ-FLP-GHL REDUCTASE INHIBITOR] Allergy (Severe, Verified 10/21/23 17:18) ANAPHYLACTIC apixaban [From Eliquis] Allergy (Intermediate, Verified 10/21/23 17:18) Vomiting Medication List - Last Reconciled 10/21/23 by Miguelina Flor MD albuterol sulfate 90 mcg/actuation 2 inhalations inhalation Q6H PRN 30 days bupropion HCl (Wellbutrin XL) 150 mg PO DAILY carvedilol 12.5 mg PO BID prednisone 50 mg PO DAILY rivaroxaban (Xarelto) 20 mg PO QPM Tobacco use date assessed: 09/30/23 Dental Screening Dental Screen Date: 10/21/23 Did you have a dental visit in the last 12 months?: Yes Did you have a dental problem in the last 6 months where you did not have access to dental care?: No Was dental information given to patient?: Patient has dentist HPI HPI Comments History of Present Illness Details This is a 73-year-old female with left ventricular systolic dysfunction, paroxysmal atrial fibrillation, mild major depression and sensorineural deafness that comes today for follow-up on her conditions accompanied by daughter Torrie. Her left ventricular systolic dysfunction and paroxysmal atrial fibrillation is in follow by cardiology and this started while she was hospitalized with streptococcal pneumonia and septic shock which can be the culprit of this diagnosis. On chronic anticoagulation and denies any active bleeding. Echocardiogram will be repeated in November and follow by cardiology. Denies any chest pain, shortness on breath leg swelling. Denies gaining 5 lb in a week. Depression stable with bupropion. Sensorineural deafness is follow by ENT which has done 2 local steroid injections out of 3. He is considering cochlear implantation. Communicating with talk to text at the moment. Receiving physical therapy at home due to physical deconditioning after being hospitalized and in rehab. Currently in a wheelchair but able to walk with a walker at home. [facility] Medical History (Updated 10/21/23 @ 18:44 by Miguelina Flor MD) Atrial fibrillation with rapid ventricular response Blood poisoning due to Streptococcus pneumoniae bacteria Septic shock due to streptococcal infection Acute hypoxic respiratory failure Type 2 NV (myocardial infarction) Metabolic acidosis Hyperphosphatemia Septic shock Uremic encephalopathy Ischemic hepatitis Hypoxia Pancreatitis, acute Hypomagnesemia Rheumatoid arthritis involving multiple joints Sarcoidosis Hearing loss Streptococcal pneumonia Xanthelasma Pulmonary nodules Mild recurrent major depression Emphysema lung Hip bursitis Depression Essential hypertension Surgical History Xanthelasma of lower eyelid History of coronary angiogram Hx of left knee surgery H/O cataract removal with insertion of prosthetic lens H/O laminectomy Carpal tunnel syndrome on both sides Family History Mother Leukemia Father Diabetes Heart disease Brother Heart disease Other No family history of cancer Social History Household Members: Spouse Housing: House Are you a primary special needs child caregiver to a significant other at home: Yes (Son) Do you presently have visiting nurse or other home services: No Unable to assess alcohol history related to: Unknown Alcohol intake: current Alcohol intake frequency: holidays/special occasions only Alcohol type: wine Comment: bilateral wrist restraints--intubated Patient Tobacco Use Status: Former Tobacco user Tobacco use type: Cigarette e-Cigarette/Vaping Use: Never Used Second Hand Smoke Exposure: No Substance Use Type: Marijuana service: No Current occupational status: retired Cognitive needs: Yes (wheelchair, walker,) Hearing needs: No Vision needs: Yes (reading glasses) Questionnaire PHQ-9 Over the last 2 weeks, how often have you been bothered by any of the following problems? 1. Little interest or pleasure in doing things: not at all 2. Feeling down, depressed, or hopeless: several days 3. Trouble falling or staying asleep, or sleeping too much: more than half the days 4. Feeling tired or having little energy: several days 5. Poor appetite or overeating: several days 6. Feeling bad about yourself - or that you are a failure or have let yourself or your family down: not at all 7. Trouble concentrating on things, such as reading the newspaper or watching television: not at all 8. Moving or speaking so slowly that other people could have noticed. Or the opposite - being so fidgety or restless that you have been moving around a lot more than usual: not at all 9. Thoughts that you would be better off or of hurting yourself in some way: not at all Total score: 5 Depression Screening Interpretation: Positive Depression Screening Follow-up: Existing condition and In treatment Depression Screening Done: Yes 82456 - PHQ-9 Billing: Yes Source: Developed by Drs. Alex Segovia, Fabiola Colón, Florentin Stevens and colleagues, with an educational josselyn from [employer]. Thrive Questionnaire Date Thrive assessed: 09/30/23 I am a: Patient What is your living situation today?: I have a steady place to live Within the past 12 months, did the food you bought not last and you didn't have the money to get more?: Never true Within the past 12 months, did you worry whether your food would run out before you got money to buy more?: Never true Do you have trouble paying for medicines?: No Do you have trouble getting transportation to medical appointments?: No Do you have trouble paying your heating and electricity bill?: No Do you have trouble taking care of your child, family member or friend?: No Do you have trouble with day-to-day activities such as bathing, preparing meals, shopping, managing finances, etc.?: No Are you currently unemployed and looking for a job?: No Are you interested in more education?: No Please select the resources that you would like help with: None Currently or been in a relationship where the following occur: no concerns reported THRIVE Score: 0 AUDIT C Alcohol Use Questionnaire (AUDIT-C) 1. How often do you have a drink containing alcohol?: Monthly or less 2. How many drinks containing alcohol do you have on a typical day when you are drinking?: 1 or 2 Total Score: 1 LUPIS-7 AMB Questionnaire LUPIS-7 Date ULPIS - 7 assessed: 10/21/23 Feeling nervous, anxious, or on edge: 1 = Several days Not being able to stop or control worryin = Not at all Worrying too much about different things: 0 = Not at all Trouble relaxin = Several days Being so restless that it is hard to sit still: 0 = Not at all Becoming easily annoyed or irritable: 0 = Not at all Feeling afraid as if something awful might happen: 0 = Not at all Total LUPIS-7 score (0-4 normal; 5-9 mild; 10-14 moderate; 15-21 severe): 2 Source: Developed by Drs. Alex Segovia, Fabiola Colón, Florentin Stevens and colleagues, with an educational josselyn from [employer]. LUPIS-7 Assessment Billing LUPIS-7 Assessment Tool: LUPIS-7 Assessment 64247 Review of Systems Const All systems reviewed & are unremarkable except as noted in HPI and below Eyes Reports no additional complaints, Denies change in vision and Denies other visual disturbances Card Denies chest pain at rest, Denies chest pain with activity, Denies edema, Denies irregular heart rhythm, Denies claudication, Denies dyspnea, Denies dyspnea on exertion, Denies orthopnea, Denies paroxysmal nocturnal dyspnea and Denies slow heart rate Resp Denies cough, Denies dyspnea and Denies dyspnea on exertion GI Denies abdominal pain, Denies change in bowel habits, Denies excessive flatus, Denies nausea and Denies vomiting Denies urinary incontinence, Denies urinary hesitancy and Denies urinary urgency Musc Denies abnormal gait, Denies atrophy, Denies deformity and Denies limited range of motion Skin/Breast Denies bleeding lesions, Denies changing lesions and Denies rash Neuro Denies abnormal gait, Denies behavioral changes, Denies confusion and Denies lack of coordination Psych Denies behavioral changes and Denies confusion Physical exam (Primary Care) Vital Signs: Last Vital Signs BP 136/82 10/21/23 16:52 BMI result Body Mass Index 26.5 Tobacco/Smoking Status: Tobacco use Status Tobacco use date assessed 09/30/23 10/21/23 16:59 Patient Tobacco Use Status Former Tobacco user 10/21/23 16:59 Tobacco use type Cigarette 10/21/23 16:59 e-Cigarette/Vaping Use Never Used 10/21/23 16:59 PHQ-9: PHQ-9 Score PHQ-9: Total score 5 10/21/23 17:41 Depression Screening Interpretation: Positive Depression Screening Follow-up: Existing condition and In treatment Thrive Assessment: Date of Thrive Assessment Date Thrive assessed 09/30/23 10/21/23 16:59 Currently or been in a relationship where the following occur: no concerns reported Const General: No confusion Orientation/consciousness: patient oriented x3 and No confusion Limitations: wheelchair HENMT Ears: external ears normal Eyes General: appearance normal, both eyes and all related structures Eyelids: Yes eyelids normal Conjunctivae: conjunctivae normal Neck Neck: Yes normal visual inspection and Yes supple Resp Effort & Inspection: normal respiratory effort Auscultation: clear to auscultation bilaterally Cardio Jugular venous distension: no JVD Rate: regular rate Rhythm: regular rhythm Heart sounds: S1 normal heart sound present and S2 normal heart sound present Skin General skin exam: no rashes or lesions noted Neuro General: patient oriented x3, no focal motor deficits and No confusion Extrem General: Yes full ROM Psych Appearance: grossly normal Assessment and Plan Assessment & Plan (1) Sensorineural deafness: Code(s): H90.5 - Unspecified sensorineural hearing loss Plan: Follow-up with ENT. (2) Paroxysmal atrial fibrillation: Code(s): I48.0 - Paroxysmal atrial fibrillation Plan: Continue carvedilol and Xarelto. Follow-up with Cardiology. (3) Mild recurrent major depression: Code(s): F33.0 - Major depressive disorder, recurrent, mild Plan: Continue bupropion. (4) Left ventricular systolic dysfunction (LVSD): Code(s): I51.9 - Heart disease, unspecified Plan: Continue carvedilol. Follow-up with Cardiology Orders: Orders Comprehensive [place]. Panel Fast 4 Months I21.A1 - Myocardial infarction type 2 Lipid Panel 4 Months E78.5 - Hyperlipidemia, unspecified Medications: New potassium chloride ER 10 mEq PO DAILY 5 days 5 caps 0RF Coding Level of Care Code Est Pt Level 4 (63100) Diagnoses Sensorineural deafness H90.5 Paroxysmal atrial fibrillation I48.0 Mild recurrent major depression F33.0 Left ventricular systolic dysfunction (LVSD) I51.9 Additional Codes LUPIS-7 Assessment Billing - LUPIS-7 Assessment Tool: LUPIS-7 Assessment [id number] ([id number]) Time Spent (min) 26
[2023-10-21 16:52] VITALS: BP 136/82; BMI 26.5
== END 2023-10-21 17:39 | disposition home or self-care (01) ==
PROVIDERS: PCP Internal Medicine; Visit Provider Internal Medicine
DX: I48.0 Paroxysmal atrial fibrillation (principal); H90.5 Unspecified sensorineural hearing loss; F33.0 Major depressive disorder, recurrent, mild
CPT/HCPCS: 99214

== ENCOUNTER 2023-10-30 08:07 | Outpatient (REF) | payer MEDICARE, SELFPAY ==
[2023-10-30 09:05] LABS: Leukocytes Stool Qualitative NEGATIVE (NEGATIVE)
[2023-10-30 09:32] LABS: CDiff Gene PCR POSITIVE (Negative)
[2023-10-30 10:26] LABS: CDiff Toxin Positive (Negative)
[2023-10-30 10:27] LABS: CDIFF Internal ctrl Dots and bkg OK (V)
== END 2023-10-30 08:08 | disposition home or self-care (01) ==
LOC: HO.LNP 08:07
PROVIDERS: Visit Provider Internal Medicine
DX: R19.7 Diarrhea, unspecified (principal)
CPT/HCPCS: 87015; 87207; 87324; 87329; 87493; 89055

== ENCOUNTER 2023-11-13 14:08 | Outpatient (AMB) | payer MEDICARE, SELFPAY ==
--- NOTE | 2023-11-13 14:24 | A.OFFVIS_ITS ---
Intake Vital Signs 11/13/23 14:25 Height 5 ft 7 in Weight 170 lb BMI 26.6 Pulse 86 Pulse Source Pulse Oximeter Pulse Oximetry (%) 98 Oxygen Delivery Method Room Air Intake Visit Reasons: hospital follow up Allergies Swxsexd-PWM-TfV Reductase Inhibitor [BKFFMML-YRA-DKM REDUCTASE INHIBITOR] Allergy (Severe, Verified 11/13/23 14:26) ANAPHYLACTIC apixaban [From Eliquis] Allergy (Intermediate, Verified 11/13/23 14:26) Vomiting HPI HPI Comments History of Present Illness Details Patient is a 73 y/o woman with a history of seronegative rheumatoid arthritis followed closely by Rheumatology in addition to history of sarcoidosis and pulmonary nodules. Overall she is doing very well on methotrexate 4 tablets a week and she was initially on 5 mg of prednisone. Since she last saw the qa developer the recommendation was to drop down the prednisone to 4 mg. Even though her sedimentation rate was still elevated at 40. She did have a recent CT scan demonstrating stable pulmonary nodules in addition to some mild degree of emphysema. The patient is aware of this. At this point having stable pulmonary nodules the patient does need to have yearly follow-up at this time. She did have her eyes checked in appears to be stable and her lesion her face that is likely from her sarcoidosis also seems to be decreasing in size. Overall she is doing very well she is staying active and the conditions are not impacting her quality of life. ? 06/17/2022 the patient is here for a pulm onary follow-up visit. She is struggling with her arthritis. She is working on different agents to try to control her seronegative rheumatoid arthritis. The patient also has underlying sarcoidosis. Her breathing has been stable. Although she is going to the allergy season and she needs to have a rescue inhaler available. The patient continues on a small dose of prednisone. She was supposed to undergo a CT scan of the chest to follow-up pulmonary nodules. But, the patient was too busy and forgets to go to her appointment. The patient stands with following nodules that can potentially grow. At this point will have her go blood work to assess her and phlegm a carlos levels and also sarcoid levels. If there is any concerning will go ahead and request a CT scan now. Otherwise patient would like to wait until next summer to further evaluate the pulmonary nodules. Will plan to follow-up with her after her CT scan in a year's time, unless her blood work 05/26/2023 the patient is here for a pulmo nary follow-up visit. The patient overall has been doing better. She has been on a better regimen for her arthritis. She is responding well to the Orencia. She continues also to be on 10 mg of prednisone. She is working slowly to decrease that. As far as the sarcoidosis the patient does have regular follow-up sore pulmonary nodules. Her last CT scan was just done couple weeks ago. Appears that she does have some slight new nodules but very minimal amount. The other nodules are stable. Therefore, based on the fact that she does have some new nodules will plan to follow-up with a CT scan in a year's time. She does have a rescue inhaler that she has not required. Overall the patient is doing well. I am hopeful that she can cut down the prednisone. 11/13/2023 the patient is here for hospital follow-up visit. The patient had a very significant hospitalization back in late July when she was admitted with acute respiratory failure and septic shock. The patient had a CT scan of the chest which I personally. Initially demonstrating the beginnings of a right lower lobe pneumonia then subsequent CT scan that she had during hospital stay demonstrated a more lobar consolidation. Her blood cultures were positive for streptococcal pneumonia. The patient was treated appropriately. She did have a prolonged ICU stay in requiring a prolonged period of intubation and vasopressor therapy. The patient now is much better. Although, she is significantly weak and she also lost her hearing. We able to communicate through a dictation device. She is working with physical therapy at home. 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 The patient will benefit from pulmonary rehabilitation when she completes [facility]. She will need to have pulmonary function studies and then was start pulmonary rehabilitation. In the meantime she continues use her respiratory therapy with good effect. Will go ahead and request blood work in view of the fact that she did get vaccinated for pneumococcal pneumonia just a couple months before she ended up with pneumococcal pneumonia. Therefore will give another vaccination and also check the blood work. [facility] Medical History (Updated 11/15/23 @ 23:08 by Collins Ruff MD) COPD (chronic obstructive pulmonary disease) Atrial fibrillation with rapid ventricular response Blood poisoning due to Streptococcus pneumoniae bacteria Septic shock due to streptococcal infection Acute hypoxic respiratory failure Type 2 [place] (myocardial infarction) Metabolic acidosis Hyperphosphatemia Septic shock Uremic encephalopathy Ischemic hepatitis Hypoxia Pancreatitis, acute Hypomagnesemia Rheumatoid arthritis involving multiple joints Sarcoidosis Hearing loss Streptococcal pneumonia Xanthelasma Pulmonary nodules Mild recurrent major depression Emphysema lung Hip bursitis Depression Essential hypertension Surgical History Xanthelasma of lower eyelid History of coronary angiogram Hx of left knee surgery H/O cataract removal with insertion of prosthetic lens H/O laminectomy Carpal tunnel syndrome on both sides Family History Mother Leukemia Father Diabetes Heart disease Brother Heart disease Other No family history of cancer Social History Household Members: Spouse Housing: House Are you a primary career consultant to a significant other at home: Yes (Son) Do you presently have visiting nurse or other home services: No Unable to assess alcohol history related to: Unknown Alcohol intake: current Alcohol intake frequency: holidays/special occasions only Alcohol type: wine Comment: bilateral wrist restraints--intubated Patient Tobacco Use Status: Former Tobacco user Tobacco use type: Cigarette e-Cigarette/Vaping Use: Never Used Second Hand Smoke Exposure: No Substance Use Type: Marijuana service: No Current occupational status: retired Cognitive needs: Yes (wheelchair, walker,) Hearing needs: No Vision needs: Yes (reading glasses) Review of Systems Const Denies night sweats ENT Denies Normal hearing present, Denies change in voice, Reports hearing loss, Denies lip swelling, Denies mouth pain, Reports nasal congestion, Reports nasal discharge and Denies tongue swelling Card Denies chest pain and Reports dyspnea on exertion Resp Reports cough and Reports dyspnea on exertion GI Denies abdominal pain Musc Reports as per HPI, Reports abnormal gait, Reports myalgias, Reports arthralgias, Reports joint swelling and Reports muscle weakness Neuro Denies Normal hearing present, Denies Neuro-related abnormal movements and Reports abnormal gait Psych Denies no additional complaints Ricardo/Lymph Denies easy bleeding and Denies lymphadenopathy Aller/Immun Denies lip swelling and Denies tongue swelling Physical Exam Vital Signs: Last Vital Signs Pulse 86 11/13/23 14:25 Pulse Ox 98 11/13/23 14:25 Oxygen Delivery Method Room Air 11/13/23 14:25 BMI result Body Mass Index 26.6 Const General: cooperative, comfortable, no acute distress, alert and awake Nutritional Appearance: average body habitus and other (Frail) Orientation/consciousness: patient oriented x3 Limitations: wheelchair Neck Neck: Yes trachea midline, Yes supple and Yes no JVD Chest Chest palpation & inspection: normal inspection of the chest Resp Effort & Inspection: normal respiratory effort Auscultation: diminished lung sounds Cardio Jugular venous distension: no JVD Rate: regular rate Rhythm: regular rhythm Heart sounds: S1 normal heart sound present, S2 normal heart sound present and no murmurs GI Auscultation: normal bowel sounds Skin General skin exam: no rashes or lesions noted Neuro General: patient oriented x3 and no focal motor deficits Cranial nerves: No Normal hearing present Extrem General: Yes no clubbing, cyanosis or edema Immunizations pneumoc 20-little conj-dip cr(PF) 0.5 mL IM syringe Performing Provider: Collins Ruff MD Performing Location: [facility] Administered by: Marbella Arceo LPN on 11/13/23 14:56 Dose Route Admin Location Dispensed Lot Number Expiration Date NDC Waste Specialist 0.5 mL IM Right Deltoid 0.5 mL [id number] 11/18/24 2887-9330-91 [employer] VIS Given Date VIS Provided VIS Publication Date 11/13/23 Single Vaccine 21 Eligibility Eligibility Date Funding Source Not [facility] Eligible 11/13/23 Private Results Reviewed Results Reviewed: personally reviewed CT chest 07/2023, 08/2024 with [facility] Assessment & Plan Assessment & Plan (1) Pneumonia: Code(s): J18.9 - Pneumonia, unspecified organism Qualifiers: Pneumonia type: due to Pneumococcus (2) Sarcoidosis: Code(s): D86.9 - Sarcoidosis, unspecified (3) Seronegative rheumatoid arthritis: Comment: Humira -dates unknown Enbrel 03/2020-06/2021-discontinued due to active synovitis. Methotrexate- 03/2020-01/2022- increased LFTs- resolved once stopped. Kevzara- 07/11-03/2022- low absolute neutrophils Orencia-03/2022-present effective Code(s): M06.00 - Rheumatoid arthritis without rheumatoid factor, unspecified site (4) [facility] systemic steroid user: Code(s): Z79.52 - buttermaker continuous churn (current) use of systemic steroids (5) Emphysema lung: Code(s): J43.9 - Emphysema, unspecified Qualifiers: Emphysema type: centrilobular Qualified Code(s): J43.2 - Centrilobular emphysema (6) Pulmonary nodules: Code(s): R91.8 - Other nonspecific abnormal finding of lung field Plan Short-acting beta agonist as needed Prevnar 20 bloodwork PFTs in person pulmnary rehab follow-up in 3-4 months Orders: Orders Complete Blood Count Auto Diff 11/13/23 J18.9 - Pneumonia, unspecified organism Immunoglobulins,IgG IgA IgM 11/13/23 J18.9 - Pneumonia, unspecified organism Pulmonary Rehab 11/13/23 J44.9 - Chronic obstructive pulmonary disease, unspecified Immunoglobulin G Subclasses 11/13/23 J18.9 - Pneumonia, unspecified organism Erythrocyte Sedimentation Rate 11/13/23 J18.9 - Pneumonia, unspecified organism PFT pulmonary function test 11/13/23 J44.9 - Chronic obstructive pulmonary disease, unspecified Pneumococcal 20 Immunization 11/13/23 Z23 - Encounter for immunization Coding Level of Care Code Est Pt Level 5 (70560) Diagnoses Pneumonia J18.9 Pneumonia type: due to Pneumococcus Sarcoidosis D86.9 Seronegative rheumatoid arthritis M06.00 buttermaker continuous churn systemic steroid user Z79.52 Centrilobular emphysema J43.2 Emphysema type: centrilobular Pulmonary nodules R91.8 Time Spent (min) 45
[2023-11-13 14:25] VITALS: PULSE 86; O2SAT 98; BMI 26.6
== END 2023-11-13 14:58 | disposition home or self-care (01) ==
PROVIDERS: PCP Internal Medicine; Visit Provider Hospitalist
DX: J18.9 Pneumonia, unspecified organism (principal); D86.9 Sarcoidosis, unspecified; M06.00 Rheumatoid arthritis without rheumatoid factor, unspecified site; Z79.52 Long term (current) use of systemic steroids; J43.2 Centrilobular emphysema; R91.8 Other nonspecific abnormal finding of lung field
CPT/HCPCS: 99215

== ENCOUNTER → 2023-11-13 14:08 | Outpatient (BNVA) | payer MEDICARE, SELFPAY | PROVIDERS: PCP Internal Medicine; Visit Provider Hospitalist | DX: Z23 Encounter for immunization (principal); J18.9 Pneumonia, unspecified organism; J43.2 Centrilobular emphysema; D86.9 Sarcoidosis, unspecified; M06.00 Rheumatoid arthritis without rheumatoid factor, unspecified site; R91.8 Other nonspecific abnormal finding of lung field | CPT/HCPCS: 90471; 90677; 99212 ==

== ENCOUNTER 2023-11-16 16:23 | Outpatient (REF) | payer MEDICARE, SELFPAY ==
[2023-11-16 17:20] LABS: Basophils Absolute Auto 0.1 X10*3/uL (0.0-0.2); Basophils Percent Auto 1.2 % (0-2); Eosinophils Absolute Auto 0.1 X10*3/uL (0.0-0.4); Eosinophils Percent Auto 2.2 % (0-4); Hematocrit 30.1 % (37.0-47.0); Hemoglobin 9.7 g/dl (12.0-16.0); Imm Gran Abs Auto 0.01 X10*3/uL (0.00-0.03); Imm Gran Pct Auto 0.2 % (0.0-0.4); Lymphocytes Absolute Auto 2.8 X10*3/uL (1.2-4.9); Lymphocytes Percent Auto 46.3 % (20-40); MANUAL DIFF FLAG SCAN; Mean Corpuscular HGB Conc 32.2 g/dl (31.0-35.0); Mean Corpuscular Hemoglobin 28.4 pg (27.0-33.0); Mean Platelet Volume 10.4 fL (9.4-12.3); Monocytes Absolute Auto 1.4 X10*3/uL (0.1-1.2); Monocytes Percent Auto 23.4 % (2-11); Neutrophils Absolute Auto 1.6 x10*3/uL (2.0-8.3); Neutrophils Percent Auto 26.7 % (45-73); Platelet Count 473 X10*3/uL (160-400); Red Blood Count 3.42 X10*6/uL (4.20-5.50); Red Cell Distribution Width 15.9 % (11.0-16.0); SCAN SMEAR FLAG 1
[2023-11-16 17:43] LABS: Alanine Aminotransferase 16 U/L (0-31); Albumin Level 3.2 g/dL (3.5-5.0); Alkaline Phosphatase 101 U/L (39-117); Anion Gap 15 (12-20); Aspartate Amino Transferase 31 U/L (5-31); Bilirubin Total 0.2 mg/dL (0.0-1.0); Blood Urea Nitrogen 12 mg/dL (9-16); C Reactive Protein 3.14 mg/dL (< or = 0.50); Calcium 9.8 mg/dL (8.4-10.2); Carbon Dioxide 26 mmol/L (22-29); Chloride 98 mmol/L (96-108); Estimated Glomerular Filt Rate > 60; Glucose Random 103 mg/dL (60-115); Potassium 3.6 mmol/L (3.3-5.1); Sodium 135 mmol/L (135-145); Total Protein 7.5 g/dL (6.5-8.0)
[2023-11-16 17:44] LABS: SLIDE REVIEW VERIFIED
[2023-11-16 17:56] LABS: Erythrocyte Sedimentation Rate 98 MM/HR (0-20)
[2023-11-17 15:53] LABS: IgA 36 mg/dL (70-320); IgG 2024 mg/dL (600-1540); IgM 54 mg/dL (50-300)
[2023-11-18 12:29] LABS: Immunoglobulin G Subclass 1 1547 mg/dL (382-929); Immunoglobulin G Subclass 2 113 mg/dL (241-700); Immunoglobulin G Subclass 3 85 mg/dL (22-178); Immunoglobulin G Subclass 4 20.6 mg/dL (4-86); Immunoglobulin G Total 1813 mg/dL (600-1540)
[2023-11-19 02:18] LABS: TS Negative Control Passed; TS Panel A 0; TS Panel B 0; TS Positive Control Passed; TSpotTB Negative (Negative)
[2023-11-20 22:24] LABS: Lysozyme, Serum 17.1 mcg/mL (5.0-11.0)
== END 2023-11-16 16:24 | disposition home or self-care (01) ==
LOC: HO.LAB 16:23
PROVIDERS: Hospitalist; Visit Provider Student in an Organized Health Care Education/Training Program
DX: J18.9 Pneumonia, unspecified organism (principal); D86.9 Sarcoidosis, unspecified; Z11.7 Encounter for testing for latent tuberculosis infection
CPT/HCPCS: 36415; 80053; 82164; 82784; 85025; 85549; 85652; 86140; 86481

== ENCOUNTER 2023-11-18 14:08 | Outpatient (AMB) | payer MEDICARE, SELFPAY ==
--- NOTE | 2023-11-18 14:18 | MHC.OFFVIS ---
Intake Vital Signs 11/18/23 14:19 Height 5 ft 7 in Weight 164 lb 7.437 oz BMI 25.8 BP 118/62 Blood Pressure Location Rt brachial Position Sitting Pulse 105 H Pulse Source Pulse Oximeter Temp 96.7 F L Temp Source Skin Pulse Oximetry (%) 99 Oxygen Delivery Method Room Air Intake Visit Reasons: RA/sarcoidosis Intake Note: Patient last seen 06/02/23 presents today for follow up and test results. Last prolia 06/02/23, due in November. Today she comes in with her daughter Torrie who is assisting in communication along with device. Prevnar with [facility] 11/13 Clinical Laboratory Director Required: No Accompanied by: Daughter Torrie Allergies Tszxjrw-CPQ-EvL Reductase Inhibitor [BETZHBF-LEF-RMD REDUCTASE INHIBITOR] Allergy (Severe, Verified 11/13/23 14:26) ANAPHYLACTIC apixaban [From Eliquis] Allergy (Intermediate, Verified 11/13/23 14:26) Vomiting Medication List - Last Reconciled 11/18/23 by Anoop Bello MD albuterol sulfate 90 mcg/actuation 2 inhalations inhalation Q6H PRN 30 days bupropion HCl (Wellbutrin XL) 150 mg PO DAILY 30 days carvedilol 12.5 mg PO BID rivaroxaban (Xarelto) 20 mg PO QPM HPI HPI Comments History of Present Illness Details This is a 73-year-old female with seronegative RA, sarcoidosis who presents for follow-up. Last August, patient was admitted to the hospital with septic shock due to strep pneumonia bacteremia, she was intubated and on pressors, this was complicated by acute renal failure on hemodialysis. Also complicated by hearing loss. Eventually patient was extubated and came off dialysis. She was discharged to rehab. For her hearing loss, she was evaluated by ENT and had a series of steroid injections which did not help. She was told that she will likely need a cochlear implant. She also had UTI infection with Laura. She also had C diff infection which was treated with oral vancomycin with resolution. Patient communicates using a phone jonathan that transcripts our dialogue. Her daughter is helping her with that. She is here on a wheelchair. Patient is able to walk but she does not have energy. She is having significant low back pain bilateral hip pain, she is having pain and swelling of her hands. She has not coughing or out of breath. [facility] Medical History COPD (chronic obstructive pulmonary disease) Atrial fibrillation with rapid ventricular response Blood poisoning due to Streptococcus pneumoniae bacteria Septic shock due to streptococcal infection Acute hypoxic respiratory failure Type 2 [place] (myocardial infarction) Metabolic acidosis Hyperphosphatemia Septic shock Uremic encephalopathy Ischemic hepatitis Hypoxia Pancreatitis, acute Hypomagnesemia Rheumatoid arthritis involving multiple joints Sarcoidosis Hearing loss Streptococcal pneumonia Xanthelasma Pulmonary nodules Mild recurrent major depression Emphysema lung Hip bursitis Depression Essential hypertension Surgical History Xanthelasma of lower eyelid History of coronary angiogram Hx of left knee surgery H/O cataract removal with insertion of prosthetic lens H/O laminectomy Carpal tunnel syndrome on both sides Family History Mother Leukemia Father Diabetes Heart disease Brother Heart disease Other No family history of cancer Social History Household Members: Spouse Housing: House Are you a primary childcare teacher to a significant other at home: Yes (Son) Do you presently have visiting nurse or other home services: No Unable to assess alcohol history related to: Unknown Alcohol intake: current Alcohol intake frequency: holidays/special occasions only Alcohol type: wine Comment: bilateral wrist restraints--intubated Patient Tobacco Use Status: Former Tobacco user Tobacco use type: Cigarette e-Cigarette/Vaping Use: Never Used Second Hand Smoke Exposure: No Substance Use Type: Marijuana service: No Current occupational status: retired Cognitive needs: Yes (wheelchair, walker,) Hearing needs: No Vision needs: Yes (reading glasses) Review of Systems ENT Reports hearing loss Card Denies dyspnea Resp Denies cough and Denies dyspnea Musc Reports back pain, Reports arthralgias, Reports joint swelling and Reports radiating pain into limb Skin/Breast Denies rash Physical Exam Vital Signs: Last Vital Signs Temp 96.7 F L 11/18/23 14:19 Pulse 105 H 11/18/23 14:19 BP 118/62 11/18/23 14:19 Pulse Ox 99 11/18/23 14:19 Oxygen Delivery Method Room Air 11/18/23 14:19 BMI result Body Mass Index 25.8 Const General: cooperative, healthy appearing and comfortable Nutritional Appearance: overweight Orientation/consciousness: patient oriented x3 Limitations: no limitations HEENT Head: Yes normocephalic and Yes atraumatic Ears: hearing grossly impaired Mouth: moist mucous membranes Resp Effort & Inspection: normal respiratory effort and able to speak in complete sentences Cardio Rate: regular rate Rhythm: regular rhythm Skin Other: Xanthelasma Neuro General: patient oriented x3 Extrem Other: Diffuse synovitis of both wrists and MCPs and PIP is bilaterally no elbow swelling, tenderness or warmth bilaterally Normal range of motion of both elbows and shoulders without pain Bilateral trochanteric bursa area tenderness with negative David's test No knee swelling or tenderness or pain with flexion and extension bilaterally No ankle swelling or tenderness bilaterally Office Procedures Joint Injection/Drain Joint Injection/Drain Details: Right trochanteric bursa Left trochanteric bursa Prep: site was prepped using sterile technique and ethochloride spray was applied Injected: 40 mg of, Kenalog and other (2 mL of 1% lidocaine) Approach Used: other (Lateral approach) Procedure: The patient tolerated the procedure well Coding Details: With the patient's consent, the right lateral hip area was prepped with ChloraPrep. Under a topical ethyl chloride spray the tender area over the trochanteric region was injected with 40 mg of Kenalog and 2 cc of 1% lidocaine. The patient tolerated the procedure with no adverse effects Then the left lateral hip area was prepped with ChloraPrep. Under a topical ethyl chloride spray. The tender area over the trochanteric region was injected with 40 mg of Kenalog mixed with 2 cc of 1% lidocaine. The patient tolerated the procedure with no adverse events - Glenohumeral/Tronchanteric Bursa/Intraarticular Procedure code (CPT) selection complete (Trochanteric bursa injection x2) Results Reviewed Results Reviewed: Laboratory Tests W C-Reactive Protein 0.49 Date of Service: 10/31/22 Procedure(s): XR DEXA axial skeleton Accession Number(s): [id number] EXAMINATION: BONE DENSITOMETRY CLINICAL INDICATION: Osteoporosis. COMPARISON: Previous BD dated 10/10/2020 and baseline BD dated 03/21/2008. TECHNIQUE: Using a [employer] DXA System (software version: 13.1) manufactured by [facility], dual-energy x-ray absorptiometry was performed of the lumbar spine and left hip. The images are of good technical quality. Summary results are attached. FINDINGS: AP SPINE L1-L4: Current: BMD 1.364 g/cm2, Z-score 2.5, T-score 1.5, normal, 0.6% increase from previous, 4.4% decrease from baseline (<5% change is not significant). Prior: BMD 1.356 g/cm2. Baseline: BMD 1.427 g/cm2. LEFT FEMUR, NECK: Current: BMD 0.881 g/cm2, Z-score 0.2, T-score -1.1, osteopenia. Prior: BMD 0.867 g/cm2. Baseline: BMD 0.935 g/cm2. LEFT FEMUR, TOTAL: Current: BMD 0.897 g/cm2, Z-score 0.1, T-score -0.9, normal, 0.2% increase from previous, 10.9% decrease from baseline (<5% change is not significant). Prior: BMD 0.895 g/cm2. Baseline: BMD 1.007 g/cm2. IDENTIFIED RISK FACTORS: Early menopause, glucocorticoids (chronic), osteoporosis, rheumatoid arthritis, secondary osteoporosis. HISTORY OF FRACTURE: None listed. MEDICATIONS: Calcium, vitamin D, Prolia. MM/XR DEXA axial skeleton IMPRESSION: 1. DIAGNOSIS: Osteopenia based on the lowest T-score value of -1.1 in the femoral neck applying World Health Organization criteria.? Assessment & Plan Assessment & Plan (1) Seronegative rheumatoid arthritis: Comment: Humira -dates unknown Enbrel 03/2020-06/2021-discontinued due to active synovitis. Methotrexate- 03/2020-01/2022- increased LFTs- resolved once stopped. Kevzara- 07/11-03/2022- low absolute neutrophils Orencia-03/2022-present effective. DC 08/2023 due to septic shock Code(s): M06.00 - Rheumatoid arthritis without rheumatoid factor, unspecified site Plan: This is a 73-year-old female with sarcoidosis and seronegative RA returns for follow-up. Patient was doing quite well on Orencia and prednisone 10 mg daily until 08/2023 when she was admitted to the hospital with streptococcal pneumonia, bacteremia and septic shock requiring prolonged intubation complicated by acute renal failure on dialysis, significant deafness. She was discharged to rehab. Her kidney function is back to normal. She also developed urinary candidemia and C diff infection treated with oral vancomycin. On exam today patient has significant synovitis affecting multiple joints now that she is off all of her immune suppression. Inflammatory markers are significantly elevated Unfortunately we are limited in our choice of immune suppression given her most recent hospitalization. Will consider hydroxychloroquine perhaps combined with low-dose prednisone such as 5 mg daily. We can consider Azathiopurine. Given bilateral trochanteric bursitis, and injected both with Kenalog today. Hopefully the injection will also help her other joints. Follow-up in 2 weeks. (2) Osteoporosis: Comment: Alendronate-could not tolerate due to GI upset Prolia- March 2019- present Code(s): M81.0 - Age-related osteoporosis without current pathological fracture Qualifiers: Osteoporosis type: age-related Presence of current pathological fracture: without current pathological fracture Qualified Code(s): M81.0 - Age-related osteoporosis without current pathological fracture Plan: DEXA from August 2018 with osteopenia but high FRAX score. Patient started on alendronate but could not tolerated due to GI side effects, then switch to Prolia. Bone density from 10/10/2020 improved- osteopenia- AP spine L1-L2 T-score 0.8 normal, 7.8% increase from previous; left femur neck T-score -1.2; left femur total T-score -0.9 normal, 4.8% increase from previous. DEXA October 2022 Osteopenia based on the lowest T-score value of-1.1 in the femoral neck. Bone density is stable. Will continue Prolia, next injection in 2 weeks (3) Sarcoidosis: Code(s): D86.9 - Sarcoidosis, unspecified Plan: Biopsy proven skin lesions. Following with Pulmonary. Gets regular CT scans every 6 months for pulmonary nodules. Recent CT chest showed few small nodules, patient however is not symptomatic. Continue to follow-up regularly with Pulmonary. Plan I spent 47 minutes reviewing patient's chart, evaluating patient, ordering diagnostic workup, counseling patient and documenting in the chart Orders: Orders AMB Joint Injection/Aspiration Today M70.61 - Trochanteric bursitis, right hip, M70.62 - Trochanteric bursitis, left hip Coding Level of Care Code Est Pt Level 5 (96262) Diagnoses Seronegative rheumatoid arthritis M06.00 Age-related osteoporosis without current pathological fracture M81.0 Osteoporosis type: age-related Presence of current pathological fracture: without current pathological fracture Sarcoidosis D86.9 CPT Codes Coding - Joint 7: 06297 - Glenohumeral/Tronchanteric Bursa/Intraarticular ([id number])
[2023-11-18 14:19] VITALS: BP 118/62; PULSE 105; TEMP 35.9; O2SAT 99; BMI 25.8
== END 2023-11-18 15:31 | disposition home or self-care (01) ==
PROVIDERS: PCP Internal Medicine; Visit Provider Student in an Organized Health Care Education/Training Program
DX: M06.09 Rheumatoid arthritis without rheumatoid factor, multiple sites (principal); D86.9 Sarcoidosis, unspecified; M81.0 Age-related osteoporosis without current pathological fracture; M70.61 Trochanteric bursitis, right hip; M70.62 Trochanteric bursitis, left hip
CPT/HCPCS: 20610; 99215

== ENCOUNTER → 2023-11-18 14:08 | Outpatient (BNVA) | payer MEDICARE, SELFPAY | PROVIDERS: PCP Internal Medicine; Visit Provider Student in an Organized Health Care Education/Training Program | DX: M70.61 Trochanteric bursitis, right hip (principal); M70.62 Trochanteric bursitis, left hip; M06.00 Rheumatoid arthritis without rheumatoid factor, unspecified site; M81.0 Age-related osteoporosis without current pathological fracture; D86.9 Sarcoidosis, unspecified | CPT/HCPCS: 20610; 99212; J3301 ==

== ENCOUNTER → 2023-11-27 07:48 | Outpatient (REF) | payer MEDICARE, SELFPAY ==
--- NOTE | 2023-11-27 07:51 | HM_ITS ---
Conclusion: 1. Patient was monitored for total period of 5 days and 14 hours 2. Baseline was normal sinus rhythm with average heart of 86 beats per minute 3. Frequent isolated PVCs noted with total burden of 9.2% 4. No significant pauses noted 5. No patient reported events MTDD
--- NOTE | 2023-11-27 07:51 | CA_ITS ---
Transthoracic Echocardiogram Patient (Last, First, Middle): Tasha Nieto A Gender: Female Date of : 1950 Age: 73 Procedure Date: 11/27/2023 Procedure Type: Transthoracic Echocardiogram Location: OP Height: 170.18 cm Weight: 72.58 kg BSA: 1.84 m2 Heart Rate: bpm BP: 118 / 58 mmHg Still Cleaner: TO Referring MD: Noel Whittington MD Symptoms: I42.9 - Cardiomyopathy, unspecified Study Quality: Fair/Contrast Conclusions: - Normal left ventricular size and systolic function. There is mildly increased left ventricular wall thickness. The visually estimated ejection fraction is between 55-60%. There is no evidence of regional wall motion abnormalities. - Normal right ventricular cavity size and systolic function. Findings Procedure Information Contrast agent, definity, is being given per protocol without apparent complications. Left Ventricle Normal left ventricular size and systolic function. There is mildly increased left ventricular wall thickness. The visually estimated ejection fraction is between 55-60%. There is no evidence of regional wall motion abnormalities. Right Ventricle Normal right ventricular cavity size and systolic function. Venous The inferior vena cava is dilated and collapses greater than 50% with inspiration. Pericardium/Pleural There is no evidence of pericardial effusion. Prior Study Comparison Changes noted compared to prior study dated: 08/19/2023. EF has improved back to normal. Measurements 2D Linear Measurements IVSd: 1.36 0.6-0.9/0.6-1.0 cm LVIDd: 4.17 3.9-5.3/4.2-5.9 cm LVIDd Index: 2.27 2.4-3.2/2.2-3.1 cm/m2 LVIDs: 2.68 2.0-3.6 cm LVPWd: 1.12 0.7-1.1 cm LV Mass: 230.43 67-162/88-224 g LV Mass Index: 125.23 43-95/49-115 g/m2 LVOT Diam: 2.30 3.0+(-)1.3 cm 2D Systolic Function EF 4C: 53.30 >55% EF 2C: 56.90 >55% EF BiP: 53.30 >55% LVOT LVOT Pk Gage: 0.93 LVOT Mn Gage: 0.60 LVOT VTI: 0.18 LVOT Pk Grad: 3.00 LVOT Mn Grad: 2.00 LVOT Diam: 2.30 LVOT Area: 4.15 Tricuspid Valve RA Press: 8.00 Updated in Other Vendor System with Status of Final Jeffrey Vela MD electronically signed on 11/29/2023 5:21:12 PM with status of Final
== END ==
LOC: HO.CARD 07:48
PROVIDERS: PCP Internal Medicine; Visit Provider Internal Medicine Cardiovascular Disease
DX: I48.0 Paroxysmal atrial fibrillation (principal)
CPT/HCPCS: 93242; 93308; Q9957

== ENCOUNTER → 2023-11-27 07:51 | Outpatient (BNV) | payer MEDICARE, SELFPAY | PROVIDERS: PCP Internal Medicine; Visit Provider Internal Medicine Cardiovascular Disease | DX: I48.0 Paroxysmal atrial fibrillation (principal) | CPT/HCPCS: 93244; 93308 ==

== ENCOUNTER 2023-12-02 14:39 | Outpatient (REF) | payer MEDICARE, SELFPAY ==
[2023-12-02 09:27] VITALS: PULSE 74; RESP 14; O2SAT 99
--- NOTE | 2023-12-02 15:00 | PFT_ITS ---
Indication sarcoidosis Spirometry [FEV1 to FVC 55% with an FEV1 of 1.57 L; FVC 2.85 L. No significant response to bronchodilators noted. Maximum voluntary ventilation 72% predicted.] Lung Volumes [Total lung capacity 98% predicted; residual volume 117% predicted] Diffusion Capacity [DLCO 60% predicted] Comparisons [None] Interpretation [Does obstructive ventilatory defect consistent with moderate COPD. No significant response to bronchodilators noted. Mild decrease in maximum voluntary ventilation secondary to likely deconditioning. Lung volumes demonstrate a trend of air trapping due to the obstruction. The patient does also have a moderate diffusion impairment. Clinical correlation warranted.] MTDD
== END 2023-12-02 14:40 | disposition home or self-care (01) ==
LOC: HO.RESP 14:39
PROVIDERS: PCP Internal Medicine; Visit Provider Hospitalist
DX: J44.9 Chronic obstructive pulmonary disease, unspecified (principal)
CPT/HCPCS: 94010; 94640; 94727; 94729

== ENCOUNTER → 2023-12-03 12:27 | Outpatient (BNVA) | payer MEDICARE, SELFPAY | PROVIDERS: PCP Internal Medicine; Visit Provider Student in an Organized Health Care Education/Training Program | DX: M06.00 Rheumatoid arthritis without rheumatoid factor, unspecified site (principal); M81.0 Age-related osteoporosis without current pathological fracture; D86.9 Sarcoidosis, unspecified; E27.49 Other adrenocortical insufficiency; Z78.0 Asymptomatic menopausal state; Z79.620 Long term (current) use of immunosuppressive biologic; Z79.52 Long term (current) use of systemic steroids; Z79.2 Long term (current) use of antibiotics | CPT/HCPCS: 96372; 99212; J0897 ==

== ENCOUNTER → 2023-12-10 07:48 | Outpatient (REF) | payer MEDICARE, SELFPAY ==
--- NOTE | ~2023-12-10 | NM_ITS ---
Lexiscan Myocardial perfusion study Indication: Abnormal EKG, assess for coronary disease and ischemia Technique: The patient was brought in for a Lexiscan perfusion study on 12/10/2023 and was injected 0.4 mg of Lexiscan intravenously. Within a minute of this injection 25 mCi of sestamibi was given intravenously. Images were obtained using the SPECT gamma camera interlaced with the gating device. Images were obtained in supine position. Resting perfusion study was performed on 12/11/2023. Patient was administered 25 mCi of sestamibi intravenously at rest. Images were then obtained in supine position. Images were processed with the software and compared side to side in short axis, horizontal long axis and vertical long axis views. Total DLP 93mGy-cm. Findings: Raw acquisition reviewed. The stress perfusion study showed diminished tracer uptake along the anterior wall, apex and possibly inferior wall but inferior wall is not well visualized. With CT attenuation correction, there is significant improvement suggestive of soft tissue attenuation artifact. The gated study shows diminished LV systolic function with calculated LVEF of 44%. LV cavity is visually dilated in size. The gated study shows globally reduced wall thickening and contraction of segments. Resting study shows no significant perfusion of normality. Gating at rest reveals globally reduced contractility with ejection fraction at 36%. The findings are consistent with no clear reversible or fixed perfusion abnormality. NM/NM albert perf SPECT rest & str Impression: 1. Myocardial perfusion imaging study shows no definitive findings to suggest ischemia or infarction. Inferior wall assessment suboptimal. 2. Gated LVEF is 44% during stress and 36% during rest. 3. Transient ischemic dilatation seems to be present visually. EKG component of the test reported separately.
--- NOTE | 2023-12-10 07:53 | CA_ITS ---
Acquisition Time: 2023-12-10 07:55:26 Total Exercise Time: 00:02:00 Test Indications: Abnormal ECG LVSD Medications: ALBUTEROL BUPROPION CARVEDILOL PREDNISONE XARELTO Protocol: LEXISCAN Max HR: 117 BPM 79% of Pred: 147 BPM Max BP: 208/100 mmHG Max Work Load: 1.0 METS Pharmacological stress test with Lexiscan injection while sitting and slowly kicking her legs, without anginal symptoms, with isolated PVCs, with resting hypertension, with normotensive response to injection, with nondiagnoisitic EKGs. Aminophylline 75mg IVP given to reverse Lexiscan. Nuclear images pending. Test reviewed with Dr. Morales. Referred By: Noel Whittington Overread By: Supriya Jara
== END ==
LOC: HO.CARD 07:48
PROVIDERS: PCP Internal Medicine; Visit Provider Internal Medicine Cardiovascular Disease
DX: I51.9 Heart disease, unspecified (principal)
CPT/HCPCS: 78452; 93017; A9500; J0280; J2785

== ENCOUNTER → 2023-12-10 07:53 | Outpatient (BNV) | payer MEDICARE, SELFPAY | PROVIDERS: PCP Internal Medicine; Visit Provider Nurse Practitioner | DX: I49.3 Ventricular premature depolarization (principal); I10 Essential (primary) hypertension | CPT/HCPCS: 78452; 93016; 93018 ==

== ENCOUNTER 2023-12-14 14:20 | Outpatient (AMB) | payer MEDICARE, SELFPAY ==
--- NOTE | 2023-12-14 14:23 | A.OFFVIS_ITS ---
Intake Vital Signs 12/14/23 14:29 Height 5 ft 7 in Weight 169 lb BMI 26.5 Pulse 90 Pulse Source Pulse Oximeter Pulse Oximetry (%) 97 Intake Visit Reasons: Reff strep/bacteremia Allergies Qiturma-WWB-XiJ Reductase Inhibitor [JSCLBGA-EFO-VNS REDUCTASE INHIBITOR] Emanuel rgy (Severe, Verified 12/14/23 15:10) ANAPHYLACTIC apixaban [From Eliquis] Allergy (Intermediate, Verified 12/14/23 15:10) Vomiting HPI Reff strep/bacteremia HPI Details She has had strep pneumonia bacteremia 08/18. She has Cdiff 10/2023 as well. [facility] Medical History Rheumatoid arthritis involving multiple joints COPD (chronic obstructive pulmonary disease) Atrial fibrillation with rapid ventricular response Blood poisoning due to Streptococcus pneumoniae bacteria Septic shock due to streptococcal infection Acute hypoxic respiratory failure Type 2 [place] (myocardial infarction) Metabolic acidosis Hyperphosphatemia Septic shock Uremic encephalopathy Ischemic hepatitis Hypoxia Pancreatitis, acute Hypomagnesemia Sarcoidosis Hearing loss Streptococcal pneumonia Xanthelasma Pulmonary nodules Mild recurrent major depression Emphysema lung Hip bursitis Depression Essential hypertension Surgical History Xanthelasma of lower eyelid History of coronary angiogram Hx of left knee surgery H/O cataract removal with insertion of prosthetic lens H/O laminectomy Carpal tunnel syndrome on both sides Family History Mother Leukemia Father Diabetes Heart disease Brother Heart disease Other No family history of cancer Social History Household Members: Spouse Housing: House Are you a primary acute care occupational therapist to a significant other at home: Yes (Son) Do you presently have visiting nurse or other home services: No Unable to assess alcohol history related to: Unknown Alcohol intake: current Alcohol intake frequency: holidays/special occasions only Alcohol type: wine Comment: bilateral wrist restraints--intubated Patient Tobacco Use Status: Former Tobacco user Tobacco use type: Cigarette e-Cigarette/Vaping Use: Never Used Second Hand Smoke Exposure: No Substance Use Type: Marijuana service: No Current occupational status: retired Cognitive needs: Yes (wheelchair, walker,) Hearing needs: No Vision needs: Yes (reading glasses) Review of Systems Const All systems reviewed & are unremarkable except as noted in HPI and below Physical Exam Vital Signs: Last Vital Signs Pulse 90 12/14/23 14:29 Pulse Ox 97 12/14/23 14:29 BMI result Body Mass Index 26.5 Const General: cooperative Orientation/consciousness: patient oriented x3 HEENT Head: Yes normal to inspection Face and sinus: Yes normal facial exam Mouth: Normal oral and palatal mucosa present Teeth and gingiva: dentition normal Eyes General: appearance normal, both eyes and all related structures Pupils: Equal, round and reactive pupils present Resp Effort & Inspection: normal respiratory effort Cardio Rate: regular rate Rhythm: regular rhythm GI Palpation (GI): Soft to palpation and nontender General: Yes no CVA tenderness Back/Spine/Pelvis Back: no CVA tenderness Skin General skin exam: no rashes or lesions noted Neuro General: patient oriented x3 and moves all extremities Cranial nerves: Yes Equal, round and reactive pupils present Extrem General: Yes normal to inspection Psych Appearance: grossly normal Assessment & Plan Assessment & Plan (1) Recurrent Clostridioides difficile infection: Comment: She has been doing well and has no known immunodeficiency risks Code(s): A49.8 - Other bacterial infections of unspecified site Plan: No further antibiotics. Would consider check HIV test and IgA and IgG level. Conjugate pneumococcal vaccine if not given. (2) Blood poisoning due to Streptococcus pneumoniae bacteria: Code(s): R78.81 - Bacteremia Plan: na Coding Level of Care Code Est Pt Level 3 (44304) Diagnoses Recurrent Clostridioides difficile infection A49.8 Blood poisoning due to Streptococcus pneumoniae bacteria R78.81
[2023-12-14 14:29] VITALS: PULSE 90; O2SAT 97; BMI 26.5
== END 2023-12-14 15:10 | disposition home or self-care (01) ==
LOC: HO.HID 14:20
PROVIDERS: PCP Internal Medicine; Visit Provider Internal Medicine
DX: A49.8 Other bacterial infections of unspecified site (principal); R78.81 Bacteremia
CPT/HCPCS: 99213

== ENCOUNTER → 2023-12-14 14:20 | Outpatient (BNVA) | payer MEDICARE, SELFPAY | PROVIDERS: PCP Internal Medicine; Visit Provider Internal Medicine | DX: A49.8 Other bacterial infections of unspecified site (principal); R78.81 Bacteremia | CPT/HCPCS: 99212 ==

== ENCOUNTER 2023-12-17 15:04 | Outpatient (AMB) | payer MEDICARE, SELFPAY ==
--- NOTE | 2023-12-17 15:08 | MHC.OFFVIS ---
Intake Vital Signs 12/17/23 15:09 Height 5 ft 7 in Weight 167 lb 8.821 oz BMI 26.2 BP 150/100 H Blood Pressure Location Lt brachial Position Sitting Pulse 87 Intake Visit Reasons: f/u savanna/echo/7 day holter Intake Note: Follow-up savanna , echo, and 7 day holter feeling good Sales And Service Agent Required: No Allergies Pssionp-VUF-BoA Reductase Inhibitor [XFLEAOS-WAY-WDM REDUCTASE INHIBITOR] Allergy (Severe, Verified 12/14/23 15:10) ANAPHYLACTIC apixaban [From Eliquis] Allergy (Intermediate, Verified 12/14/23 15:10) Vomiting Medication List - Last Reconciled 12/17/23 by Noel Whittington MD albuterol sulfate 90 mcg/actuation 2 inhalations inhalation Q6H PRN 30 days bupropion HCl (Wellbutrin XL) 150 mg PO DAILY 30 days carvedilol 12.5 mg PO BID denosumab (Prolia) mg subcut prednisone Take 4 tabs daily for 1 week, 3 tabs daily for 1 week, 2 tabs daily for 1 week then remain on 1 tab daily rivaroxaban (Xarelto) 20 mg PO QPM tocilizumab (Actemra ACTPen) 162 mg subcut Q2W HPI HPI Comments History of Present Illness Details Tasha comes for follow-up, accompanied by her daughter. Her LV systolic function by echocardiogram has normalized suggestive that possibility of findings of echocardiogram during hospitalization was stress-induced or sepsis induced myocardial depression. Her myocardial perfusion imaging shows no evidence of ischemia. There is no evidence of atrial fibrillation by Holter monitor. She has not felt any symptoms of palpitations. Although she is notice that her blood pressure is not well controlled and very frequently a blood pressure is high but also at the same time low. She says carvedilol has not been very good for her blood pressure management. In the past she is to be on lisinopril and a blood pressure is well optimized. She has extensive history of vascular disease and follows with for the same and has had multiple ultrasound testing. I am not sure if she has renal duplex been performed there as she could have renal artery stenosis. She denies any orthopnea, PND, leg edema. Currently takes all her medications. Continues to have hearing loss FOR[facility]LY [facility] Medical History Rheumatoid arthritis involving multiple joints COPD (chronic obstructive pulmonary disease) Atrial fibrillation with rapid ventricular response Blood poisoning due to Streptococcus pneumoniae bacteria Septic shock due to streptococcal infection Acute hypoxic respiratory failure Type 2 MT (myocardial infarction) Metabolic acidosis Hyperphosphatemia Septic shock Uremic encephalopathy Ischemic hepatitis Hypoxia Pancreatitis, acute Hypomagnesemia Sarcoidosis Hearing loss Streptococcal pneumonia Xanthelasma Pulmonary nodules Mild recurrent major depression Emphysema lung Hip bursitis Depression Essential hypertension Surgical History Xanthelasma of lower eyelid History of coronary angiogram Hx of left knee surgery H/O cataract removal with insertion of prosthetic lens H/O laminectomy Carpal tunnel syndrome on both sides Family History Mother Leukemia Father Diabetes Heart disease Brother Heart disease Other No family history of cancer Social History Household Members: Spouse Housing: House Are you a primary emergency care tech to a significant other at home: Yes (Son) Do you presently have visiting nurse or other home services: No Unable to assess alcohol history related to: Unknown Alcohol intake: current Alcohol intake frequency: holidays/special occasions only Alcohol type: wine Comment: bilateral wrist restraints--intubated Patient Tobacco Use Status: Former Tobacco user Tobacco use type: Cigarette e-Cigarette/Vaping Use: Never Used Second Hand Smoke Exposure: No Substance Use Type: Marijuana service: No Current occupational status: retired Cognitive needs: Yes (wheelchair, walker,) Hearing needs: No Vision needs: Yes (reading glasses) Review of Systems Const Denies chills, Denies fatigue, Denies fever(s), Denies frequent falls, Denies weakness, Denies weight gain and Denies weight loss ENT Denies dizziness Card Denies chest pain, Denies leg edema, Denies lightheadedness, Denies palpitations, Denies dyspnea, Denies dyspnea on exertion, Denies orthopnea and Denies other (loss of consciousness) Resp Denies cough, Denies dyspnea and Denies dyspnea on exertion GI Denies hematochezia and Denies change in stool character Musc Denies abnormal gait, Denies muscle weakness, Denies numbness, Denies radiating pain into limb and Denies tingling Neuro Denies abnormal gait, Denies dizziness, Denies frequent falls, Denies numbness, Denies tingling and Denies weakness Endo Denies fatigue and Denies palpitations Physical Exam Vital Signs: Last Vital Signs Pulse 87 12/17/23 15:09 BP 150/100 H 12/17/23 15:09 BMI result Body Mass Index 26.2 Const General: cooperative, comfortable, no acute distress, alert and awake Nutritional Appearance: average body habitus and other (Frail) Orientation/consciousness: patient oriented x3 Limitations: wheelchair Neck Neck: Yes trachea midline, Yes supple and Yes no JVD Resp Effort & Inspection: normal respiratory effort Auscultation: clear to auscultation bilaterally Cardio Jugular venous distension: no JVD Palpation: normal PMI Rate: regular rate Rhythm: regular rhythm Heart sounds: S1 normal heart sound present, S2 normal heart sound present, no click, no gallops, no murmurs and no rubs GI Auscultation: normal bowel sounds Skin General skin exam: no rashes or lesions noted Neuro General: patient oriented x3 and no focal motor deficits Extrem General: Yes no clubbing, cyanosis or edema Assessment & Plan Assessment & Plan (1) Labile hypertension: Code(s): R09.89 - Other specified symptoms and signs involving the circulatory and respiratory systems Plan: Significantly labile blood pressure noted to be significantly hypertensive on today's exam although she says at home her blood pressure can often be systolic 90. She has equal blood pressure in both arms. There is high likelihood of underlying renal artery stenosis. I have advised him to follow up with Dr. Torrez to pursue renal duplex if not already performed in the last year. Further treatment based on the findings. She says she has a better response with lisinopril therapy in the past and have therefore introduced lisinopril 5 mg b.i.d. to her regimen and reduce carvedilol to 6.25 mg b.i.d.. Advised to monitor blood pressure closely at home. Low-salt diet was discussed. Stress mitigation strategies was discussed. (2) Left ventricular systolic dysfunction (LVSD): Code(s): I51.9 - Heart disease, unspecified Plan: Left ventricular systolic dysfunction in the setting of severe sepsis and illness, suspect stress-induced cardiomyopathy and/or sepsis induced cardiomyopathy. She would elevated troponins but subsequent myocardial perfusion imaging is within normal limits. Balanced ischemia can not be entirely ruled out although her LV systolic function has normalized on recent echocardiogram raising the possibility of stress-induced cardiomyopathy. Continue carvedilol as well as lisinopril therapy. If she develops any anginal sounding chest discomfort I would have low threshold for pursuing cardiac catheterization to evaluate for coronary anatomy given her extensive vascular disease. Continue high-intensity statin therapy with target goal LDL less than 70 mg/dL given her extensive vascular disease. (3) Paroxysmal atrial fibrillation: Code(s): I48.0 - Paroxysmal atrial fibrillation Plan: Paroxysmal atrial fibrillation in the setting of acute medical illness and persisted. Clinically there is no clear recurrence. Advised to monitor clinically as well as may be phone based EKG device. Continue full oral anticoagulation, currently on Xarelto 20 mg daily. Quarterly renal function test should be pursued. High likelihood of recurrence was discussed with her. Avoidance of stimulants was discussed. Continue carvedilol therapy. No indication for antiarrhythmic drug therapy at this point time. Will follow up in the clinic in 6 months Medications: New lisinopril 5 mg PO BID 60 tabs 5RF Changed From Actemra ACTPen (tocilizumab) 162 mg (0.9 mL) subcut Q2W 1.8 mL 2RF NS To tocilizumab (Actemra ACTPen) 162 mg subcut Q2W From carvedilol must administer with a meal/food 12.5 mg PO BID 180 tabs 0RF To carvedilol must administer with a meal/food 6.25 mg (1/2 x 12.5 mg) PO BID 180 tabs 0RF Coding Level of Care Code Est Pt Level 4 (05327) Diagnoses Labile hypertension R09.89 Left ventricular systolic dysfunction (LVSD) I51.9 Paroxysmal atrial fibrillation I48.0
[2023-12-17 15:09] VITALS: BP 150/100; PULSE 87; BMI 26.2
== END 2023-12-17 15:54 | disposition home or self-care (01) ==
PROVIDERS: PCP Internal Medicine; Visit Provider Internal Medicine Cardiovascular Disease
DX: R09.89 Other specified symptoms and signs involving the circulatory and respiratory systems (principal); I51.9 Heart disease, unspecified; I48.0 Paroxysmal atrial fibrillation
CPT/HCPCS: 99214

== ENCOUNTER → 2023-12-17 15:04 | Outpatient (BNVA) | payer MEDICARE, SELFPAY | PROVIDERS: PCP Internal Medicine; Visit Provider Internal Medicine Cardiovascular Disease | DX: I21.A1 Myocardial infarction type 2 (principal); I11.0 Hypertensive heart disease with heart failure; I50.20 Unspecified systolic (congestive) heart failure; I48.0 Paroxysmal atrial fibrillation; Z79.52 Long term (current) use of systemic steroids | CPT/HCPCS: 99212 ==

== ENCOUNTER 2024-01-21 14:02 | Outpatient (REF) | payer MEDICARE, SELFPAY ==
--- NOTE | ~2024-01-21 | CT_ITS ---
EXAMINATION: CT internal auditory canals BI CLINICAL INFORMATION: Bilateral hearing loss COMPARISON: None available. TECHNIQUE: Contiguous axial imaging was performed of the temporal bones. This CT examination was performed using dose optimization techniques as appropriate, variously including the following: *Automated exposure control *Adjustment of mA and/or kV according to patient size (this includes techniques or standardized protocols for targeted exams where dose is matched to indication/reason for exam; i.e. extremities or head) *Use of iterative reconstruction technique DLP: 185 mGy-cm FINDINGS: RIGHT External Auditory Canal: Patent. Tympanic Membrane: Intact. Normal thickness. Mastoid Air Cells: Well-formed and are clear. Middle Ear Cavity: No opacification within the epitympanum, mesotympanum, or hypotympanum. The scutum and tegmen tympani are preserved. Ossicles: Normal alignment. No erosions. Labyrinthine Structures: Cochlea, vestibule, and semicircular canals have normal morphology. The oval window and round window are patent. The cochlear aperture is patent. No semicircular canal dehiscence. Otic Capsule: Normal mineralization. Vestibular Aqueduct: Normal size. Facial Nerve: The fallopian canal has normal course and appearance. Internal Auditory Canal: Normal size. Vascular: The sigmoid plate is intact. The petrous carotid canal has a normal course. LEFT External Auditory Canal: Patent. Tympanic Membrane: Intact. Normal thickness. Mastoid Air Cells: Well-formed and are clear. Middle Ear Cavity: No opacification within the epitympanum, mesotympanum, or hypotympanum. The scutum and tegmen tympani are preserved. Ossicles: Normal alignment. No erosions. Labyrinthine Structures: Cochlea, vestibule, and semicircular canals have normal morphology. The oval window and round window are patent. The cochlear aperture is patent. No semicircular canal dehiscence. Otic Capsule: Normal mineralization. Vestibular Aqueduct: Normal size. Facial Nerve: The fallopian canal has normal course and appearance. Internal Auditory Canal: Normal size. Vascular: The sigmoid plate is intact. The petrous carotid canal has a normal course. OTHER: Small layering secretions in the left sphenoid sinus and trace left maxillary sinus mucosal thickening. Degenerative changes of the left greater than right temporomandibular joints CT/CT internal auditory canals BI IMPRESSION: Normal CT of the temporal bones.
== END 2024-01-21 14:03 | disposition home or self-care (01) ==
LOC: HO.CT 14:02
PROVIDERS: Absent Provider Hospitalist; PCP Internal Medicine; Visit Provider Otolaryngology
DX: R91.8 Other nonspecific abnormal finding of lung field (principal); D86.9 Sarcoidosis, unspecified
CPT/HCPCS: 70480

== ENCOUNTER 2024-01-26 09:31 | Outpatient (REF) | payer MEDICARE, SELFPAY ==
[2024-01-26 09:54] LABS: MANUAL DIFF FLAG NO
[2024-01-26 10:55] LABS: Basophils Absolute Auto 0.1 X10*3/uL (0.0-0.2); Basophils Percent Auto 0.7 % (0-2); Eosinophils Absolute Auto 0.1 X10*3/uL (0.0-0.4); Eosinophils Percent Auto 1.6 % (0-4); Hematocrit 41.1 % (37.0-47.0); Imm Gran Abs Auto 0.02 X10*3/uL (0.00-0.03); Imm Gran Pct Auto 0.3 % (0.0-0.4); Lymphocytes Absolute Auto 2.1 X10*3/uL (1.2-4.9); Lymphocytes Percent Auto 28.7 % (20-40); Mean Corpuscular HGB Conc 32.6 g/dl (31.0-35.0); Mean Platelet Volume 10.4 fL (9.4-12.3); Monocytes Percent Auto 13.1 % (2-11); Neutrophils Absolute Auto 4.1 x10*3/uL (2.0-8.3); Neutrophils Percent Auto 55.6 % (45-73); Platelet Count 204 X10*3/uL (160-400); Red Blood Count 4.62 X10*6/uL (4.20-5.50); Red Cell Distribution Width 15.9 % (11.0-16.0); White Blood Count 7.4 X10*3/uL (4.8-10.8)
[2024-01-26 10:57] LABS: Hemoglobin 13.4 g/dl (12.0-16.0)
[2024-01-26 11:07] LABS: Alanine Aminotransferase 34 U/L (0-31); Albumin Level 3.8 g/dL (3.5-5.0); Alkaline Phosphatase 88 U/L (39-117); Anion Gap 14 (12-20); Aspartate Amino Transferase 43 U/L (5-31); Bilirubin Total 0.3 mg/dL (0.0-1.0); Blood Urea Nitrogen 20 mg/dL (9-16); C Reactive Protein < 0.10 mg/dL (< or = 0.50); Calcium 9.6 mg/dL (8.4-10.2); Carbon Dioxide 26 mmol/L (22-29); Chloride 103 mmol/L (96-108); Cholesterol 284 mg/dL (<200); Estimated Glomerular Filt Rate 55; Glucose Fasting 89 mg/dL (60-99); Glucose Random 89 mg/dL (60-115); HDL Cholesterol 71 mg/dL (>40); LDL Cholesterol Calculated 173 mg/dL (<100); Potassium 4.7 mmol/L (3.3-5.1); Sodium 138 mmol/L (135-145); Total Protein 7.8 g/dL (6.5-8.0); Triglycerides 203 mg/dL (<150)
[2024-01-26 11:12] LABS: Erythrocyte Sedimentation Rate 13 MM/HR (0-20)
== END 2024-01-26 09:32 | disposition home or self-care (01) ==
LOC: HO.LAB 09:31
PROVIDERS: Student in an Organized Health Care Education/Training Program; PCP Internal Medicine; Visit Provider Internal Medicine
DX: M06.9 Rheumatoid arthritis, unspecified (principal); I21.A1 Myocardial infarction type 2; E78.5 Hyperlipidemia, unspecified
CPT/HCPCS: 36415; 80053; 80061; 85025; 85652; 86140

== ENCOUNTER → 2024-02-02 14:28 | Outpatient (BNVA) | payer MEDICARE, SELFPAY | PROVIDERS: PCP Internal Medicine; Visit Provider Student in an Organized Health Care Education/Training Program | DX: M06.00 Rheumatoid arthritis without rheumatoid factor, unspecified site (principal); M65.841 Other synovitis and tenosynovitis, right hand; D86.9 Sarcoidosis, unspecified; M81.0 Age-related osteoporosis without current pathological fracture | CPT/HCPCS: 20550; 99212; J3301 ==

== ENCOUNTER 2024-02-03 07:00 | Outpatient (REF) | payer MEDICARE, SELFPAY ==
[2024-02-03 07:17] LABS: MANUAL DIFF FLAG NO
--- NOTE | 2024-02-03 07:22 | ECG_ITS ---
Test Reason : PRE PROCEDURAL Blood Pressure : / mmHG Vent. Rate : 083 BPM Atrial Rate : 083 BPM P-R Int : 174 ms QRS Dur : 096 ms QT Int : 384 ms P-R-T Axes : 065 056 063 degrees QTc Int : 451 ms Normal sinus rhythm Possible Left atrial enlargement Borderline ECG When compared with ECG of 01-OCT-2023 09:23, No significant change was found Referred By: Miguelina Flor Electronically Signed By:LIAN ROSE MD
[2024-02-03 08:00] LABS: Basophils Absolute Auto 0.1 X10*3/uL (0.0-0.2); Basophils Percent Auto 1.4 % (0-2); Eosinophils Absolute Auto 0.2 X10*3/uL (0.0-0.4); Eosinophils Percent Auto 3.3 % (0-4); Hemoglobin 13.5 g/dl (12.0-16.0); Imm Gran Abs Auto 0.01 X10*3/uL (0.00-0.03); Imm Gran Pct Auto 0.2 % (0.0-0.4); Lymphocytes Absolute Auto 2.8 X10*3/uL (1.2-4.9); Lymphocytes Percent Auto 56.9 % (20-40); Mean Corpuscular HGB Conc 32.1 g/dl (31.0-35.0); Mean Corpuscular Hemoglobin 28.7 pg (27.0-33.0); Mean Corpuscular Volume 89.2 fL (80.0-98.0); Mean Platelet Volume 10.3 fL (9.4-12.3); Monocytes Absolute Auto 0.8 X10*3/uL (0.1-1.2); Monocytes Percent Auto 16.3 % (2-11); Neutrophils Absolute Auto 1.1 x10*3/uL (2.0-8.3); Neutrophils Percent Auto 21.9 % (45-73); Platelet Count 213 X10*3/uL (160-400); Red Blood Count 4.71 X10*6/uL (4.20-5.50); Red Cell Distribution Width 15.6 % (11.0-16.0); White Blood Count 4.9 X10*3/uL (4.8-10.8)
[2024-02-03 08:54] LABS: Alanine Aminotransferase 36 U/L (0-31); Albumin Level 3.8 g/dL (3.5-5.0); Alkaline Phosphatase 72 U/L (39-117); Anion Gap 13 (12-20); Aspartate Amino Transferase 41 U/L (5-31); Bilirubin Total 0.4 mg/dL (0.0-1.0); Blood Urea Nitrogen 20 mg/dL (9-16); Calcium 9.5 mg/dL (8.4-10.2); Carbon Dioxide 26 mmol/L (22-29); Chloride 104 mmol/L (96-108); Cholesterol 309 mg/dL (<200); Estimated Glomerular Filt Rate 50; Glucose Fasting 77 mg/dL (60-99); HDL Cholesterol 75 mg/dL (>40); LDL Cholesterol Calculated 213 mg/dL (<100); Potassium 3.9 mmol/L (3.3-5.1); Sodium 139 mmol/L (135-145); Total Protein 7.8 g/dL (6.5-8.0); Triglycerides 108 mg/dL (<150)
== END 2024-02-03 07:01 | disposition home or self-care (01) ==
LOC: HO.LAB 07:00
PROVIDERS: PCP Internal Medicine; Visit Provider Internal Medicine
DX: Z00.00 Encounter for general adult medical examination without abnormal findings (principal); D64.9 Anemia, unspecified; M06.9 Rheumatoid arthritis, unspecified; E78.5 Hyperlipidemia, unspecified; Z01.818 Encounter for other preprocedural examination
CPT/HCPCS: 36415; 80053; 80061; 85025; 93005

== ENCOUNTER → 2024-02-03 07:22 | Outpatient (BNV) | payer MEDICARE, SELFPAY | PROVIDERS: PCP Internal Medicine; Visit Provider Internal Medicine Cardiovascular Disease | DX: I10 Essential (primary) hypertension (principal) | CPT/HCPCS: 93010 ==

== ENCOUNTER 2024-02-03 12:23 | Outpatient (AMB) | payer MEDICARE, SELFPAY ==
[2024-02-03 12:30] VITALS: BP 118/70; BMI 28.3
--- NOTE | 2024-02-03 12:30 | A.OFFPC_ITS ---
Vital Signs 02/03/24 12:30 Height 5 ft 7 in Weight 181 lb BMI 28.3 BP 118/70 Blood Pressure Location Lt brachial Position Sitting Intake Visit Reasons: 02/26/24 Intake Note: Patient here for Cochlear Implants clearance 02/26/24 Lip And Gate Builder Required: No Accompanied by: Daughter Allergies Hnlccli-RAP-TmP Reductase Inhibitor [QSPEBDC-GGN-LFL REDUCTASE INHIBITOR] Allergy (Severe, Verified 02/03/24 12:39) ANAPHYLACTIC apixaban [From Eliquis] Allergy (Intermediate, Verified 02/03/24 12:39) Vomiting Medication List - Last Reconciled 02/03/24 by Miguelina Flor MD Actemra ACTPen (tocilizumab) 162 mg (0.9 mL) subcut Q2W NS albuterol sulfate 90 mcg/actuation 2 inhalations inhalation Q6H PRN 30 days bupropion HCl XL (Wellbutrin XL) 150 mg PO DAILY 30 days carvedilol 6.25 mg PO BID denosumab (Prolia) mg subcut lisinopril 10 mg PO BID prednisone 5 mg PO DAILY rivaroxaban (Xarelto) 20 mg PO QPM Tobacco use date assessed: 09/30/23 Fall risk assessment: No Falls in past year Last assessed Fall Risk: 02/03/24 Dental Screening Dental Screen Date: 10/21/23 HPI HPI Comments History of Present Illness Details This is a 73-year-old female with rheumatoid arthritis, paroxysmal atrial fibrillation, COPD and mild recurrent major depression that comes for preop evaluation for cochlear implant scheduled for February 2024. Rheumatoid arthritis has been improving with Actemra and this is follow by Rheumatology. On chronic anticoagulation for atrial fibrillation follow by cardiology. COPD has been stable and use rescue inhaler less than once a month. Depression stable with bupropion. Walks with no assistive device. Denies any chest pain or shortness of breath. Still has hearing loss. Has 5-7 Mets of ADLs. EKG and labs were discussed. Elevated cholesterol will be discussed with Cardiology. By RCRI she is class 1 and has 0.4% risk of cardiac complications. Patient is medically clear for surgery. [facility]LY [facility] Medical History (Updated 02/03/24 @ 12:57 by Miguelina Flor MD) BRE (acute kidney injury) Rheumatoid arthritis involving multiple joints COPD (chronic obstructive pulmonary disease) Atrial fibrillation with rapid ventricular response Blood poisoning due to Streptococcus pneumoniae bacteria Septic shock due to streptococcal infection Acute hypoxic respiratory failure Type 2 MA (myocardial infarction) Metabolic acidosis Hyperphosphatemia Septic shock Uremic encephalopathy Ischemic hepatitis Hypoxia Pancreatitis, acute Hypomagnesemia Sarcoidosis Hearing loss Streptococcal pneumonia Xanthelasma Pulmonary nodules Mild recurrent major depression Emphysema lung Hip bursitis Depression Essential hypertension Surgical History Xanthelasma of lower eyelid History of coronary angiogram Hx of left knee surgery H/O cataract removal with insertion of prosthetic lens H/O laminectomy Carpal tunnel syndrome on both sides Family History Mother Leukemia Father Diabetes Heart disease Brother Heart disease Other No family history of cancer Social History Household Members: Spouse Housing: House Are you a primary cna caregiver to a significant other at home: Yes (Son) Do you presently have visiting nurse or other home services: No Unable to assess alcohol history related to: Unknown Alcohol intake: current Alcohol intake frequency: holidays/special occasions only Alcohol type: wine Comment: bilateral wrist restraints--intubated Patient Tobacco Use Status: Former Tobacco user Tobacco use type: Cigarette e-Cigarette/Vaping Use: Never Used Second Hand Smoke Exposure: No Substance Use Type: Marijuana service: No Current occupational status: retired Cognitive needs: Yes (wheelchair, walker,) Hearing needs: No Vision needs: Yes (reading glasses) Questionnaire Thrive Questionnaire Date Thrive assessed: 09/30/23 LUPIS-7 AMB Questionnaire LUPIS-7 Date LUPIS - 7 assessed: 10/21/23 Source: Developed by Drs. Alex Segovia, Fabiola Colón, Florentin Stevens and colleagues, with an educational josselyn from [employer]. Review of Systems Const All systems reviewed & are unremarkable except as noted in HPI and below Card Denies chest pain at rest, Denies chest pain with activity, Denies edema, Denies irregular heart rhythm, Denies claudication, Denies dyspnea, Denies dyspnea on exertion, Denies orthopnea, Denies paroxysmal nocturnal dyspnea and Denies slow heart rate Resp Denies cough, Denies dyspnea and Denies dyspnea on exertion GI Denies abdominal pain, Denies change in bowel habits, Denies excessive flatus, Denies nausea and Denies vomiting Physical exam (Primary Care) Vital Signs: Last Vital Signs BP 118/70 02/03/24 12:30 BMI result Body Mass Index 28.3 Tobacco/Smoking Status: Tobacco use Status Tobacco use date assessed 09/30/23 02/03/24 12:36 Patient Tobacco Use Status Former Tobacco user 02/03/24 12:36 Tobacco use type Cigarette 02/03/24 12:36 e-Cigarette/Vaping Use Never Used 02/03/24 12:36 Thrive Assessment: Date of Thrive Assessment Date Thrive assessed 09/30/23 02/03/24 12:36 Resp Effort & Inspection: normal respiratory effort Auscultation: clear to auscultation bilaterally Cardio Jugular venous distension: no JVD Rate: regular rate Rhythm: regular rhythm Heart sounds: S1 normal heart sound present and S2 normal heart sound present Extrem General: Yes full ROM Psych Appearance: grossly normal Assessment and Plan Assessment & Plan (1) Pre-op evaluation: Code(s): Z01.818 - Encounter for other preprocedural examination Plan: Patient medically clear for surgery. (2) Rheumatoid arthritis involving multiple joints: Comment: Humira -dates unknown Enbrel 03/2020-06/2021-discontinued due to active synovitis. Methotrexate- 03/2020-01/2022- increased LFTs- resolved once stopped. Kevzara- 07/11-03/2022- low absolute neutrophils Orencia-03/2022-present Code(s): M06.9 - Rheumatoid arthritis, unspecified Plan: Continue Actemra. Prednisone will be weaned off by ems coordinator. (3) COPD (chronic obstructive pulmonary disease): Code(s): J44.9 - Chronic obstructive pulmonary disease, unspecified Plan: Use rescue inhaler as needed. (4) Paroxysmal atrial fibrillation: Code(s): I48.0 - Paroxysmal atrial fibrillation Plan: Continue Xarelto. Follow-up with Cardiology. The goal is heart rate control. (5) Mild recurrent major depression: Code(s): F33.0 - Major depressive disorder, recurrent, mild Plan: Continue bupropion. Coding Level of Care Code Est Pt Level 4 (51289) Diagnoses Pre-op evaluation Z01.818 Rheumatoid arthritis involving multiple joints M06.9 COPD (chronic obstructive pulmonary disease) J44.9 Paroxysmal atrial fibrillation I48.0 Mild recurrent major depression F33.0 Time Spent (min) 25
== END 2024-02-03 12:54 | disposition home or self-care (01) ==
PROVIDERS: PCP Internal Medicine; Visit Provider Internal Medicine
DX: M06.9 Rheumatoid arthritis, unspecified (principal); J44.9 Chronic obstructive pulmonary disease, unspecified; I48.0 Paroxysmal atrial fibrillation; F33.0 Major depressive disorder, recurrent, mild; Z01.818 Encounter for other preprocedural examination
CPT/HCPCS: 99214

== ENCOUNTER 2024-04-18 08:55 | Outpatient (REF) | payer MEDICARE, SELFPAY ==
--- NOTE | ~2024-04-18 | CT_ITS ---
EXAMINATION: CT CHEST WITHOUT CONTRAST CLINICAL INFORMATION: Lung nodules, patient with pulmonary sarcoidosis COMPARISON: September 04, 2023 TECHNIQUE: Multidetector volumetric CT imaging of the chest was done. Axial MIP volume rendering provided. Sagittal and coronal reformatted images were obtained. This CT examination was performed using dose optimization techniques as appropriate, variously including the following: *Automated exposure control *Adjustment of mA and/or kV according to patient size (this includes techniques or standardized protocols for targeted exams where dose is matched to indication/reason for exam; i.e. extremities or head) *Use of iterative reconstruction technique DLP: 141 mGy-cm FINDINGS: MIDDLEWARE SYSTEMS ARCHITECT: Unremarkable LUNGS: There is a right upper lobe groundglass opacity adjacent to the fissure, measured 1.4 cm this is new since previous examination there is tree in bud appearance micronodularity more prominent than on the previous examination in the left upper lobe, seen on image 81 cm 6. The largest nodule measured 0.5 cm. Another area of tree-in-bud appearance micronodularity seen in the left lower lobe, image 84 suggestive ill-defined groundglass opacity area associated with tree-in-bud micronodular nodularity seen in the right lower lobe, image 134 series 6 MEDIASTINUM: There is no mediastinal or hilar lymphadenopathy seen CORONARY ARTERY CALCIFICATION: Heavy PLEURA: There is no pleural effusion. No pleural mass or thickening. AXILLA: No lymphadenopathy. UPPER ABDOMEN: There is calcification in the small spleen OSSEOUS STRUCTURES: Mild changes of degenerative spondylosis CT/CT chest wo IV con IMPRESSION: 1. Tree-in-bud appearance micronodularity in the left upper lobe, left lower lobe and right lower lobe. Groundglass opacity in the right upper lobe adjacent to the fissure. 2. Heavy coronary artery calcifications. 3. Calcified small spleen. 4. Mild degenerative changes in the spine. Fleischner guidelines were followed. Electronically signed by: Carrington Salinas MD 05/16/2024 08:40 AM EDT
== END 2024-04-18 08:56 | disposition home or self-care (01) ==
LOC: HO.CT 08:55
PROVIDERS: PCP Internal Medicine; Visit Provider Hospitalist
DX: R91.8 Other nonspecific abnormal finding of lung field (principal); D86.9 Sarcoidosis, unspecified
CPT/HCPCS: 71250

== ENCOUNTER 2024-04-28 13:05 | Outpatient (REF) | payer MEDICARE, SELFPAY ==
[2024-04-28 13:16] LABS: MANUAL DIFF FLAG NO
[2024-04-28 13:40] LABS: Basophils Absolute Auto 0.1 X10*3/uL (0.0-0.2); Basophils Percent Auto 1.7 % (0-2); Eosinophils Absolute Auto 0.1 X10*3/uL (0.0-0.4); Eosinophils Percent Auto 3.1 % (0-4); Hematocrit 38.7 % (37.0-47.0); Hemoglobin 12.8 g/dl (12.0-16.0); Imm Gran Abs Auto 0.01 X10*3/uL (0.00-0.03); Imm Gran Pct Auto 0.2 % (0.0-0.4); Lymphocytes Absolute Auto 2.3 X10*3/uL (1.2-4.9); Lymphocytes Percent Auto 55.5 % (20-40); Mean Corpuscular HGB Conc 33.1 g/dl (31.0-35.0); Mean Corpuscular Hemoglobin 30.3 pg (27.0-33.0); Mean Corpuscular Volume 91.5 fL (80.0-98.0); Mean Platelet Volume 10.3 fL (9.4-12.3); Monocytes Absolute Auto 0.7 X10*3/uL (0.1-1.2); Monocytes Percent Auto 15.6 % (2-11); Neutrophils Percent Auto 23.9 % (45-73); Platelet Count 219 X10*3/uL (160-400); Red Blood Count 4.23 X10*6/uL (4.20-5.50); Red Cell Distribution Width 14.3 % (11.0-16.0); White Blood Count 4.2 X10*3/uL (4.8-10.8)
[2024-04-28 14:13] LABS: Alanine Aminotransferase 27 U/L (0-31); Albumin Level 3.9 g/dL (3.5-5.0); Alkaline Phosphatase 85 U/L (39-117); Anion Gap 10 (12-20); Aspartate Amino Transferase 39 U/L (5-31); Bilirubin Total 0.4 mg/dL (0.0-1.0); Blood Urea Nitrogen 19 mg/dL (9-16); C Reactive Protein < 0.10 mg/dL (< or = 0.50); Calcium 9.8 mg/dL (8.4-10.2); Carbon Dioxide 28 mmol/L (22-29); Chloride 102 mmol/L (96-108); Estimated Glomerular Filt Rate 53; Glucose Random 92 mg/dL (60-115); Potassium 4.1 mmol/L (3.3-5.1); Sodium 136 mmol/L (135-145); Total Protein 7.8 g/dL (6.5-8.0)
[2024-04-28 14:20] LABS: Erythrocyte Sedimentation Rate 14 MM/HR (0-20)
[2024-05-03 16:44] LABS: Angiotensin Converting Enzyme 7.5 U/L (9-67)
[2024-05-05 17:38] LABS: Lysozyme, Serum 12.2 mcg/mL (5.0-11.0)
== END 2024-04-28 13:06 | disposition home or self-care (01) ==
LOC: HO.LAB 13:05
PROVIDERS: PCP Internal Medicine; Visit Provider Student in an Organized Health Care Education/Training Program
DX: M06.9 Rheumatoid arthritis, unspecified (principal); D86.9 Sarcoidosis, unspecified; R06.9 Unspecified abnormalities of breathing
CPT/HCPCS: 36415; 80053; 82164; 85025; 85549; 85652; 86140

== ENCOUNTER → 2024-05-05 10:08 | Outpatient (BNVA) | payer MEDICARE, SELFPAY | PROVIDERS: PCP Internal Medicine; Visit Provider Student in an Organized Health Care Education/Training Program | DX: M06.00 Rheumatoid arthritis without rheumatoid factor, unspecified site (principal); M81.0 Age-related osteoporosis without current pathological fracture; D86.9 Sarcoidosis, unspecified; M70.61 Trochanteric bursitis, right hip; M70.62 Trochanteric bursitis, left hip; Z79.899 Other long term (current) drug therapy | CPT/HCPCS: 99212 ==

== ENCOUNTER 2024-05-10 07:40 | Outpatient (REF) | payer MEDICARE, SELFPAY ==
--- NOTE | ~2024-05-10 | MM_ITS ---
EXAMINATION: MM SCREENING DIGITAL BREAST TOMOSYNTHESIS, BILATERAL CLINICAL INFORMATION: Screening. Asymptomatic. COMPARISON: Mammography: This study is compared with prior exams dating back to 2019. TECHNIQUE: Digital breast tomosynthesis is performed in both the craniocaudal and mediolateral oblique views along with computer-aided detection (CAD). Synthesized 2D images are generated from the tomosynthesis. FINDINGS: There are scattered areas of fibroglandular density (ACR BI-RADS breast composition Category b). There are no significant masses, abnormal calcifications, or other abnormalities. MM/MM tomosynthesis screening BI IMPRESSION: No mammographic evidence of malignancy. ASSESSMENT: BI-RADS BI-RADS 1 - Negative RECOMMENDATION: Routine annual mammography screening. 1 year F/U This examination should not preclude the clinical evaluation of a suspicious palpable abnormality. This patient's information was entered into a reminder system with a target due date for their next mammogram. Electronically signed by: Karolina Khan MD 06/07/2024 11:24 AM EDT
== END 2024-05-10 07:41 | disposition home or self-care (01) ==
LOC: HO.MAMMO 07:40
PROVIDERS: PCP Internal Medicine; Visit Provider Internal Medicine
DX: Z12.31 Encounter for screening mammogram for malignant neoplasm of breast (principal)
CPT/HCPCS: 77063; 77067

== ENCOUNTER → 2024-05-10 07:45 | Outpatient (BNV) | payer MEDICARE, SELFPAY | PROVIDERS: PCP Internal Medicine; Visit Provider Radiology Diagnostic Radiology | DX: Z12.31 Encounter for screening mammogram for malignant neoplasm of breast (principal) | CPT/HCPCS: 77063; 77067 ==

== ENCOUNTER 2024-05-25 11:03 | Outpatient (REF) | payer MEDICARE, SELFPAY ==
[2024-05-25 14:34] LABS: Basophils Absolute Auto 0.1 X10*3/uL (0.0-0.2); Basophils Percent Auto 1.8 % (0-2); Eosinophils Absolute Auto 0.1 X10*3/uL (0.0-0.4); Hemoglobin 13.2 g/dl (12.0-16.0); Imm Gran Abs Auto 0.01 X10*3/uL (0.00-0.03); Imm Gran Pct Auto 0.3 % (0.0-0.4); Lymphocytes Absolute Auto 2.4 X10*3/uL (1.2-4.9); Lymphocytes Percent Auto 59.1 % (20-40); MANUAL DIFF FLAG SCAN; Mean Corpuscular Hemoglobin 30.6 pg (27.0-33.0); Mean Corpuscular Volume 92.6 fL (80.0-98.0); Mean Platelet Volume 10.5 fL (9.4-12.3); Monocytes Absolute Auto 0.5 X10*3/uL (0.1-1.2); Neutrophils Absolute Auto 0.9 x10*3/uL (2.0-8.3); Neutrophils Percent Auto 22.8 % (45-73); Platelet Count 230 X10*3/uL (160-400); Red Blood Count 4.32 X10*6/uL (4.20-5.50); Red Cell Distribution Width 13.6 % (11.0-16.0); SCAN SMEAR FLAG 1
[2024-05-25 15:13] LABS: Erythrocyte Sedimentation Rate 12 MM/HR (0-20)
[2024-05-25 16:00] LABS: SLIDE REVIEW VERIFIED
[2024-05-29 15:53] LABS: Vitamin D 25-OH, D2 <4 ng/mL; Vitamin D 25-OH, D3 39 ng/mL; Vitamin D 25-OH, Total 39 ng/mL (30-100)
== END 2024-05-25 11:04 | disposition home or self-care (01) ==
LOC: HO.WFDLDS 11:03
PROVIDERS: Visit Provider Student in an Organized Health Care Education/Training Program
DX: D86.9 Sarcoidosis, unspecified (principal); E55.9 Vitamin D deficiency, unspecified
CPT/HCPCS: 36415; 82306; 85025; 85652

== ENCOUNTER 2024-05-26 10:37 | Outpatient (AMB) | payer MEDICARE, SELFPAY ==
[2024-05-26 10:48] VITALS: BP 134/70; PULSE 67; O2SAT 98; BMI 28.3
--- NOTE | 2024-05-26 10:48 | MHC.OFFVIS ---
Vital Signs 05/26/24 10:48 Height 5 ft 7 in Weight 180 lb 12.465 oz BMI 28.3 BP 134/70 Blood Pressure Location Lt brachial Position Sitting Pulse 67 Pulse Source Pulse Oximeter Pulse Oximetry (%) 98 Oxygen Delivery Method Room Air Intake Visit Reasons: copd Director Of Group Sales Required: No Allergies Weerjxf-FHE-RhC Reductase Inhibitor [NRYZUFQ-CDG-XQG REDUCTASE INHIBITOR] Allergy (Severe, Verified 05/26/24 10:52) ANAPHYLACTIC apixaban [From Eliquis] Allergy (Intermediate, Verified 05/26/24 10:52) Vomiting HPI Comments Details: Patient is a 73 y/o woman with a history of seronegative rheumatoid arthritis followed closely by Rheumatology in addition to history of sarcoidosis and pulmonary nodules. Overall she is doing very well on methotrexate 4 tablets a week and she was initially on 5 mg of prednisone. Since she last saw the sports statistician the recommendation was to drop down the prednisone to 4 mg. Even though her sedimentation rate was still elevated at 40. She did have a recent CT scan demonstrating stable pulmonary nodules in addition to some mild degree of emphysema. The patient is aware of this. At this point having stable pulmonary nodules the patient does need to have yearly follow-up at this time. She did have her eyes checked in appears to be stable and her lesion her face that is likely from her sarcoidosis also seems to be decreasing in size. Overall she is doing very well she is staying active and the conditions are not impacting her quality of life. ? 06/17/2022 the patient is here for a pulmonary follow-up visit. She is struggling with her arthritis. She is working on different agents to try to control her seronegative rheumatoid arthritis. The patient also has underlying sarcoidosis. Her breathing has been stable. Although she is going to the allergy season and she needs to have a rescue inhaler available. The patient continues on a small dose of prednisone. She was supposed to undergo a CT scan of the chest to follow-up pulmonary nodules. But, the patient was too busy and forgets to go to her appointment. The patient stands with following nodules that can potentially grow. At this point will have her go blood work to assess her and phlegm a carlos levels and also sarcoid levels. If there is any concerning will go ahead and request a CT scan now. Otherwise patient would like to wait until next summer to further evaluate the pulmonary nodules. Will plan to follow-up with her after her CT scan in a year's time, unless her blood work 05/26/2023 the patient is here for a pulmonary follow-up visit. The patient overall has been doing better. She has been on a better regimen for her arthritis. She is responding well to the Orencia. She continues also to be on 10 mg of prednisone. She is working slowly to decrease that. As far as the sarcoidosis the patient does have regular follow-up sore pulmonary nodules. Her last CT scan was just done couple weeks ago. Appears that she does have some slight new nodules but very minimal amount. The other nodules are stable. Therefore, based on the fact that she does have some new nodules will plan to follow-up with a CT scan in a year's time. She does have a rescue inhaler that she has not required. Overall the patient is doing well. I am hopeful that she can cut down the prednisone. 11/13/2023 the patient is here for hospital follow-up visit. The patient had a very significant hospitalization back in late July when she was admitted with acute respiratory failure and septic shock. The patient had a CT scan of the chest which I personally. Initially demonstrating the beginnings of a right lower lobe pneumonia then subsequent CT scan that she had during hospital stay demonstrated a more lobar consolidation. Her blood cultures were positive for streptococcal pneumonia. The patient was treated appropriately. She did have a prolonged ICU stay in requiring a prolonged period of intubation and vasopressor therapy. The patient now is much better. Although, she is significantly weak and she also lost her hearing. We able to communicate through a dictation device. She is working with physical therapy at home. 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 The patient will benefit from pulmonary rehabilitation when she completes [facility]. She will need to have pulmonary function studies and then was start pulmonary rehabilitation. In the meantime she continues use her respiratory therapy with good effect. Will go ahead and request blood work in view of the fact that she did get vaccinated for pneumococcal pneumonia just a couple months before she ended up with pneumococcal pneumonia. Therefore will give another vaccination and also check the blood work. 05/26/2024 the patient is here for a pulmonary follow-up visit. Overall the patient has been recovering after her very serious hospitalization. She also has been following closely Rheumatology. Seems like her biologic therapy for her connective tissue disease is helping her both RA and also treating her sarcoid. She does have a rescue inhaler but typically does not use it often. Typically less than 2 times a week. In addition to that the patient did have a CT scan of the chest which I personally reviewed with her. the patient appears to have a right-sided pulmonary nodule measuring more than a cm in the right hemithorax. In addition to that worsening tree-in-bud and bronchiolitis primarily on the left upper lobe in also lingula. This suggested smoldering infection. The patient is immunocompromised because of her immunosuppression due to her connective tissue disease Treatment. Therefore will have her undergo sputum sampling to see if this smoldering infection such as non tuberculosis mycobacterial infection. She has already had a negative TB test. If the CT scan is no better in 3 months or if his worsen then we can talk about bronchoscopy specially if we have not been able to adequately collect good sputum samples. [facility] Medical History (Updated 05/26/24 @ 22:16 by Collins Ruff MD) Pulmonary nodule Bronchiolitis Cochlear implant in place BRE (acute kidney injury) Rheumatoid arthritis involving multiple joints COPD (chronic obstructive pulmonary disease) Atrial fibrillation with rapid ventricular response Blood poisoning due to Streptococcus pneumoniae bacteria Septic shock due to streptococcal infection Acute hypoxic respiratory failure Type 2 CA (myocardial infarction) Metabolic acidosis Hyperphosphatemia Septic shock Uremic encephalopathy Ischemic hepatitis Hypoxia Pancreatitis, acute Hypomagnesemia Sarcoidosis Hearing loss Streptococcal pneumonia Xanthelasma Pulmonary nodules Mild recurrent major depression Emphysema lung Hip bursitis Depression Essential hypertension Surgical History Xanthelasma of lower eyelid History of coronary angiogram Hx of left knee surgery H/O cataract removal with insertion of prosthetic lens H/O laminectomy Carpal tunnel syndrome on both sides Family History Mother Leukemia Father Diabetes Heart disease Brother Heart disease Other No family history of cancer Social History Household Members: Spouse Housing: House Are you a primary healthcare or medical to a significant other at home: Yes (Son) Do you presently have visiting nurse or other home services: No Unable to assess alcohol history related to: Unknown Alcohol intake: current Alcohol intake frequency: holidays/special occasions only Alcohol type: wine Comment: bilateral wrist restraints--intubated Patient Tobacco Use Status: Former Tobacco user Tobacco use type: Cigarette e-Cigarette/Vaping Use: Never Used Second Hand Smoke Exposure: No Substance Use Type: Marijuana service: No Current occupational status: retired Cognitive needs: Yes (wheelchair, walker,) Hearing needs: No Vision needs: Yes (reading glasses) Review of Systems Const Denies night sweats ENT Denies Normal hearing present, Denies change in voice, Reports hearing loss, Denies lip swelling, Denies mouth pain, Reports nasal congestion, Reports nasal discharge and Denies tongue swelling Card Denies chest pain and Reports dyspnea on exertion Resp Reports cough and Reports dyspnea on exertion GI Denies abdominal pain Musc Reports as per HPI, Reports abnormal gait, Reports myalgias, Reports arthralgias, Reports joint swelling and Reports muscle weakness Neuro Denies Normal hearing present, Denies Neuro-related abnormal movements and Reports abnormal gait Psych Denies no additional complaints Ricardo/Lymph Denies easy bleeding and Denies lymphadenopathy Aller/Immun Denies lip swelling and Denies tongue swelling Physical Exam Vital Signs: Last Vital Signs Pulse 67 05/26/24 10:48 BP 134/70 05/26/24 10:48 Pulse Ox 98 05/26/24 10:48 Oxygen Delivery Method Room Air 05/26/24 10:48 BMI result Body Mass Index 28.3 Const General: cooperative, comfortable, no acute distress, alert and awake Nutritional Appearance: average body habitus and other (Frail) Orientation/consciousness: patient oriented x3 Limitations: wheelchair Neck Neck: Yes trachea midline, Yes supple and Yes no JVD Chest Chest palpation & inspection: normal inspection of the chest Resp Effort & Inspection: normal respiratory effort Auscultation: diminished lung sounds Cardio Jugular venous distension: no JVD Rate: regular rate Rhythm: regular rhythm Heart sounds: S1 normal heart sound present, S2 normal heart sound present and no murmurs GI Auscultation: normal bowel sounds Skin General skin exam: no rashes or lesions noted Neuro General: patient oriented x3 and no focal motor deficits Cranial nerves: No Normal hearing present Extrem General: Yes no clubbing, cyanosis or edema Assessment & Plan Assessment & Plan (1) Sarcoidosis: Code(s): D86.9 - Sarcoidosis, unspecified Category: Medical (2) Seronegative rheumatoid arthritis: Comment: Hydroxychloroquine for 18 months failed Humira -dates unknown failed Enbrel 03/2020-06/2021-discontinued due to active synovitis. Methotrexate- 03/2020-01/2022- increased LFTs- resolved once stopped. Kevzara- 07/11-03/2022- low absolute neutrophils Orencia-03/2022-present effective. DC 08/2023 due to septic shock Actemra 11/2023 effective Code(s): M06.00 - Rheumatoid arthritis without rheumatoid factor, unspecified site Category: Medical (3) assisted systemic steroid user: Code(s): Z79.52 - termination clerk (current) use of systemic steroids Category: Medical (4) Emphysema lung: Code(s): J43.9 - Emphysema, unspecified Category: Medical Qualifiers: Emphysema type: centrilobular Qualified Code(s): J43.2 - Centrilobular emphysema (5) Pulmonary nodules: Code(s): R91.8 - Other nonspecific abnormal finding of lung field Category: Medical (6) Bronchiolitis: Code(s): J21.9 - Acute bronchiolitis, unspecified Category: Medical (7) Pulmonary nodule: Code(s): R91.1 - Solitary pulmonary nodule Category: Medical Plan Short-acting beta agonist as needed sputum for AFB Repeat CT cest in 3 months, if no better or worse then consider bronchoscopy follow-up in 3-4 months Orders: Orders Acid-fast Culture + Smear Today J21.9 - Acute bronchiolitis, unspecified Sputum Cult + Gram stain Today J21.9 - Acute bronchiolitis, unspecified CT chest wo IV con 3 Months R91.1 - Solitary pulmonary nodule Coding Level of Care Code Est Pt Level 4 (38787) Complex EM visit Add On G2211 Diagnoses Sarcoidosis D86.9 Seronegative rheumatoid arthritis M06.00 termination clerk systemic steroid user Z79.52 Centrilobular emphysema J43.2 Emphysema type: centrilobular Pulmonary nodules R91.8 Bronchiolitis J21.9 Pulmonary nodule R91.1 Time Spent (min) 17
== END 2024-05-26 11:14 | disposition home or self-care (01) ==
PROVIDERS: PCP Internal Medicine; Visit Provider Hospitalist
DX: D86.9 Sarcoidosis, unspecified (principal); M06.00 Rheumatoid arthritis without rheumatoid factor, unspecified site; Z79.52 Long term (current) use of systemic steroids; J43.2 Centrilobular emphysema; R91.8 Other nonspecific abnormal finding of lung field; J21.9 Acute bronchiolitis, unspecified; R91.1 Solitary pulmonary nodule
CPT/HCPCS: 99214; G2211

== ENCOUNTER → 2024-05-26 10:37 | Outpatient (BNVA) | payer MEDICARE, SELFPAY | PROVIDERS: PCP Internal Medicine; Visit Provider Hospitalist | DX: J43.2 Centrilobular emphysema (principal); J21.9 Acute bronchiolitis, unspecified; M06.00 Rheumatoid arthritis without rheumatoid factor, unspecified site; D86.9 Sarcoidosis, unspecified; R91.1 Solitary pulmonary nodule; Z79.631 Long term (current) use of antimetabolite agent; Z79.52 Long term (current) use of systemic steroids | CPT/HCPCS: 99212 ==

== ENCOUNTER 2024-06-02 13:25 | Outpatient (AMB) | payer MEDICARE, SELFPAY ==
--- NOTE | 2024-06-02 13:33 | A.OFFVIS_ITS ---
Intake Visit Reasons: Osteoporosis/prolia Allergies Fujuxtg-RKC-EtV Reductase Inhibitor [LVRWWKA-VTZ-BVY REDUCTASE INHIBITOR] Allergy (Severe, Verified 05/26/24 10:52) ANAPHYLACTIC apixaban [From Eliquis] Allergy (Intermediate, Verified 05/26/24 10:52) Vomiting HPI Comments Details: 73-year-old female with sarcoidosis/RA and osteoporosis presents for her Prolia shot [facility] Medical History (Updated 05/26/24 @ 22:16 by Collins Ruff MD) Pulmonary nodule Bronchiolitis Cochlear implant in place BRE (acute kidney injury) Rheumatoid arthritis involving multiple joints COPD (chronic obstructive pulmonary disease) Atrial fibrillation with rapid ventricular response Blood poisoning due to Streptococcus pneumoniae bacteria Septic shock due to streptococcal infection Acute hypoxic respiratory failure Type 2 NM (myocardial infarction) Metabolic acidosis Hyperphosphatemia Septic shock Uremic encephalopathy Ischemic hepatitis Hypoxia Pancreatitis, acute Hypomagnesemia Sarcoidosis Hearing loss Streptococcal pneumonia Xanthelasma Pulmonary nodules Mild recurrent major depression Emphysema lung Hip bursitis Depression Essential hypertension Surgical History Xanthelasma of lower eyelid History of coronary angiogram Hx of left knee surgery H/O cataract removal with insertion of prosthetic lens H/O laminectomy Carpal tunnel syndrome on both sides Family History Mother Leukemia Father Diabetes Heart disease Brother Heart disease Other No family history of cancer Social History Household Members: Spouse Housing: House Are you a primary progressive care manager to a significant other at home: Yes (Son) Do you presently have visiting nurse or other home services: No Unable to assess alcohol history related to: Unknown Alcohol intake: current Alcohol intake frequency: holidays/special occasions only Alcohol type: wine Comment: bilateral wrist restraints--intubated Patient Tobacco Use Status: Former Tobacco user Tobacco use type: Cigarette e-Cigarette/Vaping Use: Never Used Second Hand Smoke Exposure: No Substance Use Type: Marijuana service: No Current occupational status: retired Cognitive needs: Yes (wheelchair, walker,) Hearing needs: No Vision needs: Yes (reading glasses) Office Meds Prolia 60 mg/mL subcutaneous syringe Performing Provider: Anoop Bello MD Performing Location: [facility] [place] [facility] Administered by: Anoop Bello MD on 06/02/24 13:39 Dose Route Admin Location Dispensed Lot Number Expiration Date NDC Supervisor Tree Trimming 60 mg subcut RT deltoid 1 mL [id number] 08/20/26 85027-914-45 AMGEN Assessment & Plan Assessment & Plan (1) Osteoporosis: Comment: Alendronate-could not tolerate due to GI upset Prolia- March 2019- present Code(s): M81.0 - Age-related osteoporosis without current pathological fracture Category: Medical Qualifiers: Osteoporosis type: age-related Presence of current pathological fracture: without current pathological fracture Qualified Code(s): M81.0 - Age- related osteoporosis without current pathological fracture Plan: 73-year-old female with osteoporosis presents for her Prolia injection. She received the Prolia injection in clinic today. Injection was uneventful. Follow-up in 3 months Orders: Orders AMB Denosumab Injection Patient Supplied Today M81.0 - Age-related osteoporosis without current pathological fracture Medications: New Prolia (denosumab) 60 mg subcut ONCE 1 mL 0RF NS M81.0 - Age-related osteoporosis without current pathological fracture Coding Level of Care Code Procedure Only Diagnoses Age-related osteoporosis without current pathological fracture M81.0 Osteoporosis type: age-related Presence of current pathological fracture: without current pathological fracture
== END 2024-06-02 13:39 | disposition home or self-care (01) ==
PROVIDERS: PCP Internal Medicine; Visit Provider Student in an Organized Health Care Education/Training Program
DX: M81.0 Age-related osteoporosis without current pathological fracture (principal)

== ENCOUNTER → 2024-06-02 13:25 | Outpatient (BNVA) | payer MEDICARE, SELFPAY | PROVIDERS: PCP Internal Medicine; Visit Provider Student in an Organized Health Care Education/Training Program | DX: M81.0 Age-related osteoporosis without current pathological fracture (principal); Z79.620 Long term (current) use of immunosuppressive biologic | CPT/HCPCS: 96372; J0897 ==

== ENCOUNTER 2024-06-09 07:12 | Outpatient (REF) | payer MEDICARE, SELFPAY | END 2024-06-09 07:13 | disposition home or self-care (01) | LOC: HO.LNP 07:12 | PROVIDERS: Visit Provider Hospitalist | DX: J21.9 Acute bronchiolitis, unspecified (principal) | CPT/HCPCS: 87116; 87206 ==

== ENCOUNTER 2024-06-16 07:43 | Outpatient (REF) | payer MEDICARE, SELFPAY | END 2024-06-16 07:44 | disposition home or self-care (01) | LOC: HO.LNP 07:43 | PROVIDERS: Visit Provider Hospitalist | DX: R91.1 Solitary pulmonary nodule (principal); J21.9 Acute bronchiolitis, unspecified | CPT/HCPCS: 87070; 87116; 87205; 87206 ==

== ENCOUNTER 2024-07-13 09:00 | Outpatient (RCR) | payer MEDICARE, SELFPAY ==
--- NOTE | 2024-07-13 10:02 | MHC.PT.DC ---
[facility] [place] Office [place] Office [place] [facility] [address] Drea Murray [address] [phone] F: [phone] F: [phone] F: [phone] F: [phone] Physical Therapy Discharge Report Diagnosis: DEANNE TROCHANTERIC BURSITIS (KP) Date of Surgery: Date of Evaluation: 06/02/24 Date of Discharge: 07/13/24 Treatments to Date: 10 Cancellations to Date: 0 No Shows to Date: 0 Discharge Status: Achieved Goals Improved Function Independent with HEP Discharge Summary: Tasha shows improvement in strength in LEs, ROM in hips with reduction of pain and improved functional mobility with transfers and stair use. Her balance remains impaired due to cochlear implant. She has a basic home program to work on holding with UE to make progress with balance. She feels ready for discharge this session to independent [facility]. Electronically signed by: Ray Khan, PT, DPT Please sign and return to therapist. Thank you for your referral.
== END 2024-07-13 10:02 | disposition home or self-care (01) ==
LOC: HO.PT 09:00
PROVIDERS: PCP Student in an Organized Health Care Education/Training Program; Visit Provider Student in an Organized Health Care Education/Training Program
DX: M70.61 Trochanteric bursitis, right hip (principal); M70.62 Trochanteric bursitis, left hip
CPT/HCPCS: 87070; 87116; 87205; 87206; 97110; 97112; 97162; 97530

== ENCOUNTER 2024-08-22 07:50 | Outpatient (REF) | payer MEDICARE, SELFPAY | END 2024-08-22 07:51 | disposition home or self-care (01) | LOC: HO.CT 07:50 | PROVIDERS: PCP Internal Medicine; Visit Provider Hospitalist | DX: R91.1 Solitary pulmonary nodule (principal) | CPT/HCPCS: 71250 ==

== ENCOUNTER → 2024-08-22 07:50 | Outpatient (BNV) | payer MEDICARE, SELFPAY | PROVIDERS: PCP Internal Medicine; Visit Provider Radiology Diagnostic Radiology | DX: R91.1 Solitary pulmonary nodule (principal) | CPT/HCPCS: 71250 ==

== ENCOUNTER 2024-08-30 12:34 | Outpatient (REF) | payer MEDICARE, SELFPAY ==
[2024-08-30 14:20] LABS: MANUAL DIFF FLAG NO
[2024-08-30 14:25] LABS: Basophils Absolute Auto 0.1 X10*3/uL (0.0-0.2); Basophils Percent Auto 1.4 % (0-2); Eosinophils Absolute Auto 0.1 X10*3/uL (0.0-0.4); Hematocrit 42.6 % (37.0-47.0); Hemoglobin 14.1 g/dl (12.0-16.0); Imm Gran Abs Auto 0.01 X10*3/uL (0.00-0.03); Imm Gran Pct Auto 0.2 % (0.0-0.4); Lymphocytes Absolute Auto 2.5 X10*3/uL (1.2-4.9); Lymphocytes Percent Auto 59.3 % (20-40); Mean Corpuscular HGB Conc 33.1 g/dl (31.0-35.0); Mean Corpuscular Hemoglobin 30.3 pg (27.0-33.0); Mean Corpuscular Volume 91.6 fL (80.0-98.0); Mean Platelet Volume 10.5 fL (9.4-12.3); Monocytes Absolute Auto 0.5 X10*3/uL (0.1-1.2); Monocytes Percent Auto 12.6 % (2-11); Neutrophils Percent Auto 23.5 % (45-73); Platelet Count 228 X10*3/uL (160-400); Red Blood Count 4.65 X10*6/uL (4.20-5.50); Red Cell Distribution Width 13.3 % (11.0-16.0); White Blood Count 4.3 X10*3/uL (4.8-10.8)
[2024-08-30 14:37] LABS: Alanine Aminotransferase 31 U/L (0-31); Alkaline Phosphatase 65 U/L (39-117); Anion Gap 11 (12-20); Aspartate Amino Transferase 48 U/L (5-31); Bilirubin Total 0.5 mg/dL (0.0-1.0); Blood Urea Nitrogen 14 mg/dL (9-16); C Reactive Protein < 0.04 mg/dL (< or = 0.50); Carbon Dioxide 30 mmol/L (22-29); Chloride 100 mmol/L (96-108); Estimated Glomerular Filt Rate > 60; Glucose Random 121 mg/dL (60-115); Sodium 137 mmol/L (135-145)
[2024-08-30 14:58] LABS: Erythrocyte Sedimentation Rate 10 MM/HR (0-20)
== END 2024-08-30 12:35 | disposition home or self-care (01) ==
LOC: HO.WFDLDS 12:34
PROVIDERS: Visit Provider Student in an Organized Health Care Education/Training Program
DX: M06.9 Rheumatoid arthritis, unspecified (principal)
CPT/HCPCS: 36415; 80053; 85025; 85652; 86140

== ENCOUNTER 2024-09-05 07:58 | Outpatient (AMB) | payer MEDICARE, SELFPAY ==
--- NOTE | 2024-09-05 08:02 | MHC.OFFVIS ---
Vital Signs 09/05/24 08:06 Height 5 ft 7 in Weight 183 lb 6.793 oz BMI 28.7 BP 112/64 Blood Pressure Location Rt brachial Position Sitting Pulse 88 Pulse Source Pulse Oximeter Pulse Oximetry (%) 98 Oxygen Delivery Method Room Air Intake Visit Reasons: sarcoid/RA Intake Note: Patient presents for RA. Allergies Ncxhhfk-PNT-AiX Reductase Inhibitor [IZIMZDM-BYA-KSI REDUCTASE INHIBITOR] Allergy (Severe, Verified 09/05/24 08:05) ANAPHYLACTIC apixaban [From Eliquis] Allergy (Intermediate, Verified 09/05/24 08:05) Vomiting Medication List - Last Reconciled 09/05/24 by Anoop Bello MD Actemra ACTPen (tocilizumab) 162 mg (0.9 mL) subcut Q2W NS albuterol sulfate 90 mcg/actuation 2 inhalations inhalation Q6H PRN 30 days bupropion HCl XL (Wellbutrin XL) 150 mg PO DAILY 30 days carvedilol 6.25 mg PO BID denosumab (Prolia) 60 mg subcut [id number] lisinopril 15 mg PO BID rivaroxaban (Xarelto) 20 mg PO QPM tramadol 50 mg PO Q6H PRN 30 days HPI Comments Details: 74-year-old female with seronegative RA/sarcoidosis returns for follow-up. She is here with her daughter. She states that she had been doing quite well overall. Around Thanksgiving time she had a flu-like illness that lasted 2 weeks but she did not have a fever or go to the hospital. It resolved spontaneously. She remains on Actemra injection every other week. She has been quite active, she has done 10 sessions of PT for trochanteric bursitis with improvement. She denies any significant joint pains except for some pain in her knees, pain in her PIPs. Previous history 10/2023: This is a 73-year-old female with seronegative RA, sarcoidosis who presents for follow-up. Last August, patient was admitted to the hospital with septic shock due to strep pneumonia bacteremia, she was intubated and on pressors, this was complicated by acute renal failure on hemodialysis. Also complicated by hearing loss. Eventually patient was extubated and came off dialysis. She was discharged to rehab. For her hearing loss, she was evaluated by ENT and had a series of steroid injections which did not help. She was told that she will likely need a cochlear implant. She also had UTI infection with Laura. She also had C diff infection which was treated with oral vancomycin with resolution. Patient communicates using a phone jonathan that transcripts our dialogue. Her daughter is helping her with that. She is here on a wheelchair. Patient is able to walk but she does not have energy. She is having significant low back pain bilateral hip pain, she is having pain and swelling of her hands. She has not coughing or out of breath. [facility] Medical History Pulmonary nodule Bronchiolitis Cochlear implant in place BRE (acute kidney injury) Rheumatoid arthritis involving multiple joints COPD (chronic obstructive pulmonary disease) Atrial fibrillation with rapid ventricular response Blood poisoning due to Streptococcus pneumoniae bacteria Septic shock due to streptococcal infection Acute hypoxic respiratory failure Type 2 VA (myocardial infarction) Metabolic acidosis Hyperphosphatemia Septic shock Uremic encephalopathy Ischemic hepatitis Hypoxia Pancreatitis, acute Hypomagnesemia Sarcoidosis Hearing loss Streptococcal pneumonia Xanthelasma Pulmonary nodules Mild recurrent major depression Emphysema lung Hip bursitis Depression Essential hypertension Surgical History Xanthelasma of lower eyelid History of coronary angiogram Hx of left knee surgery H/O cataract removal with insertion of prosthetic lens H/O laminectomy Carpal tunnel syndrome on both sides Family History Mother Leukemia Father Diabetes Heart disease Brother Heart disease Other No family history of cancer Social History Household Members: Spouse Housing: House Are you a primary health care attorney to a significant other at home: Yes (Son) Do you presently have visiting nurse or other home services: No Unable to assess alcohol history related to: Unknown Alcohol intake: current Alcohol intake frequency: holidays/special occasions only Alcohol type: wine Comment: bilateral wrist restraints--intubated Patient Tobacco Use Status: Former Tobacco user Tobacco use type: Cigarette e-Cigarette/Vaping Use: Never Used Second Hand Smoke Exposure: No Substance Use Type: Marijuana service: No Current occupational status: retired Cognitive needs: Yes (wheelchair, walker,) Hearing needs: No Vision needs: Yes (reading glasses) Review of Systems Card Denies dyspnea Resp Denies cough and Denies dyspnea Musc Reports arthralgias Skin/Breast Denies rash Physical Exam Vital Signs: Last Vital Signs Pulse 88 09/05/24 08:06 BP 112/64 09/05/24 08:06 Pulse Ox 98 09/05/24 08:06 Oxygen Delivery Method Room Air 09/05/24 08:06 BMI result Body Mass Index 28.7 Const General: cooperative, healthy appearing and comfortable Nutritional Appearance: overweight Orientation/consciousness: patient oriented x3 Limitations: no limitations HEENT Head: Yes normocephalic and Yes atraumatic Ears: hearing grossly impaired Mouth: moist mucous membranes Resp Effort & Inspection: normal respiratory effort and able to speak in complete sentences Cardio Rate: regular rate Rhythm: regular rhythm Skin Other: Xanthelasma Neuro General: patient oriented x3 Extrem Other: Mild right ring finger dactylitis Normal range of motion of elbows and shoulders No trochanteric bursa area tenderness today Bilateral knee crepitus Assessment & Plan Assessment & Plan (1) Seronegative rheumatoid arthritis: Comment: Hydroxychloroquine for 18 months failed Humira -dates unknown failed Enbrel 03/2020-06/2021-discontinued due to active synovitis. Methotrexate- 03/2020-01/2022- increased LFTs- resolved once stopped. Kevzara- 07/11-03/2022- low absolute neutrophils Orencia-03/2022-present effective. DC 08/2023 due to septic shock Actemra 11/2023 effective. PDN tapered off 05/2024 Code(s): M06.00 - Rheumatoid arthritis without rheumatoid factor, unspecified site Category: Medical Plan: This is a 74-year-old female with sarcoidosis and seronegative RA returns for follow-up. On Actemra 162 mg every other week. Doing well overall. She continues to have right ring finger synovitis it was not particularly symptomatic per patient. Advised patient to seek evaluation by hand surgeon if symptoms get worse Continue with Actemra 162 mg every other week. Continue to implement reasonable measures to avoid infection such as wearing a mask in crowded areas. Labs before next visit in 3 months (2) Osteoporosis: Comment: Alendronate-could not tolerate due to GI upset Prolia- March 2019- present Code(s): M81.0 - Age-related osteoporosis without current pathological fracture Category: Medical Qualifiers: Osteoporosis type: age-related Presence of current pathological fracture: without current pathological fracture Qualified Code(s): M81.0 - Age-related osteoporosis without current pathological fracture Plan: DEXA from August 2018 with osteopenia but high FRAX score. Patient started on alendronate but could not tolerate it due to GI side effects, then switch to Prolia. Bone density from 10/10/2020 improved- osteopenia- AP spine L1-L2 T-score 0.8 normal, 7.8% increase from previous; left femur neck T-score -1.2; left femur total T-score -0.9 normal, 4.8% increase from previous. DEXA October 2022 Osteopenia based on the lowest T-score value of-1.1 in the femoral neck. Bone density is stable. Most recent Prolia injection 05/2024. Next Prolia injection 11/2024. Plan to repeat DEXA 10/2024 (3) Sarcoidosis: Code(s): D86.9 - Sarcoidosis, unspecified Category: Medical Plan: Biopsy proven skin lesions. Following with Pulmonary. Gets regular CT scans every 6 months for pulmonary nodules. Recent CT chest showed few small nodules, patient however is not symptomatic, Humberto level increases while off DMARDs. Now normalized on treatment. Will monitor Humberto levels periodically. (4) Greater trochanteric bursitis of both hips: Code(s): M70.61 - Trochanteric bursitis, right hip; M70.62 - Trochanteric bursitis, left hip Category: Medical Plan: Significantly improved with PT Plan I spent 27 minutes reviewing patient's chart, evaluating patient, ordering diagnostic workup, counseling patient and documenting in the chart Orders: Orders Complete Blood Count Auto Diff 3 Months M06.9 - Rheumatoid arthritis, unspecified Comprehensive Met. Panel 3 Months M06.9 - Rheumatoid arthritis, unspecified Hepatitis A,B,C Profile 3 Months Z11.59 - Encounter for screening for other viral diseases Angiotensin Converting Enzyme 3 Months D86.9 - Sarcoidosis, unspecified C Reactive Protein 3 Months M06.9 - Rheumatoid arthritis, unspecified Erythrocyte Sedimentation Rate 3 Months M06.9 - Rheumatoid arthritis, unspecified T Spot TB 3 Months Z11.7 - Encounter for testing for latent tuberculosis infection Vitamin D 25-OH Total 3 Months E55.9 - Vitamin D deficiency, unspecified XR DEXA axial skeleton 10/24/24 M81.0 - Age-related osteoporosis without current pathological fracture Coding Level of Care Code Est Pt Level 4 (99261) Complex EM visit Add On G2211 Diagnoses Seronegative rheumatoid arthritis M06.00 Age-related osteoporosis without current pathological fracture M81.0 Osteoporosis type: age-related Presence of current pathological fracture: without current pathological fracture Sarcoidosis D86.9 Greater trochanteric bursitis of both hips M70.61; M70.62
[2024-09-05 08:06] VITALS: BP 112/64; PULSE 88; O2SAT 98; BMI 28.7
== END 2024-09-05 08:30 | disposition home or self-care (01) ==
PROVIDERS: PCP Internal Medicine; Visit Provider Student in an Organized Health Care Education/Training Program
DX: M06.00 Rheumatoid arthritis without rheumatoid factor, unspecified site (principal); M81.0 Age-related osteoporosis without current pathological fracture; D86.9 Sarcoidosis, unspecified; M70.61 Trochanteric bursitis, right hip; M70.62 Trochanteric bursitis, left hip
CPT/HCPCS: 99214; G2211

== ENCOUNTER → 2024-09-05 07:58 | Outpatient (BNVA) | payer MEDICARE, SELFPAY | PROVIDERS: PCP Internal Medicine; Visit Provider Student in an Organized Health Care Education/Training Program | DX: M06.00 Rheumatoid arthritis without rheumatoid factor, unspecified site (principal); M81.0 Age-related osteoporosis without current pathological fracture; D86.9 Sarcoidosis, unspecified; M70.61 Trochanteric bursitis, right hip; M70.62 Trochanteric bursitis, left hip; E55.9 Vitamin D deficiency, unspecified | CPT/HCPCS: 99212 ==

== ENCOUNTER 2024-09-09 09:51 | Outpatient (AMB) | payer MEDICARE, SELFPAY ==
--- NOTE | 2024-09-09 09:57 | A.OFFVIS_ITS ---
Vital Signs 09/09/24 09:58 Height 5 ft 7 in Weight 186 lb 4.65 oz BMI 29.2 BP 140/82 H Blood Pressure Location Lt brachial Position Sitting Pulse 72 Pulse Source Pulse Oximeter Pulse Oximetry (%) 97 Oxygen Delivery Method Room Air Intake Visit Reasons: COPD/CT Follow Up Group Insurance Specialist Required: No Allergies Qmfenve-TQR-AnZ Reductase Inhibitor [BBAJZEW-DPR-RGT REDUCTASE INHIBITOR] Allergy (Severe, Verified 09/09/24 10:00) ANAPHYLACTIC apixaban [From Eliquis] Allergy (Intermediate, Verified 09/09/24 10:00) Vomiting HPI Comments Details: Patient is a 74 y/o woman with a history of seronegative rheumatoid arthritis followed closely by Rheumatology in addition to history of sarcoidosis and pulmonary nodules. Overall she is doing very well on methotrexate 4 tablets a week and she was initially on 5 mg of prednisone. Since she last saw the hydroelectric mechanic the recommendation was to drop down the prednisone to 4 mg. Even though her sedimentation rate was still elevated at 40. She did have a recent CT scan demonstrating stable pulmonary nodules in addition to some mild degree of emphysema. The patient is aware of this. At this point having stable pulmonary nodules the patient does need to have yearly follow-up at this time. She did have her eyes checked in appears to be stable and her lesion her face that is likely from her sarcoidosis also seems to be decreasing in size. Overall she is doing very well she is staying active and the conditions are not impacting her quality of life. ? 06/17/2022 the patient is here for a pulmonary follow-up visit. She is struggling with her arthritis. She is working on different agents to try to control her seronegative rheumatoid arthritis. The patient also has underlying sarcoidosis. Her breathing has been stable. Although she is going to the allergy season and she needs to have a rescue inhaler available. The patient continues on a small dose of prednisone. She was supposed to undergo a CT scan of the chest to follow-up pulmonary nodules. But, the patient was too busy and forgets to go to her appointment. The patient stands with following nodules that can potentially grow. At this point will have her go blood work to assess her and phlegm a carlos levels and also sarcoid levels. If there is any concerning will go ahead and request a CT scan now. Otherwise patient would like to wait until next summer to further evaluate the pulmonary nodules. Will plan to follow-up with her after her CT scan in a year's time, unless her blood work 05/26/2023 the patient is here for a pulmonary follow-up visit. The patient overall has been doing better. She has been on a better regimen for her arthritis. She is responding well to the Orencia. She continues also to be on 10 mg of prednisone. She is working slowly to decrease that. As far as the sarcoidosis the patient does have regular follow-up sore pulmonary nodules. Her last CT scan was just done couple weeks ago. Appears that she does have some slight new nodules but very minimal amount. The other nodules are stable. Therefore, based on the fact that she does have some new nodules will plan to follow-up with a CT scan in a year's time. She does have a rescue inhaler that she has not required. Overall the patient is doing well. I am hopeful that she can cut down the prednisone. 11/13/2023 the patient is here for hospital follow-up visit. The patient had a very significant hospitalization back in late July when she was admitted with acute respiratory failure and septic shock. The patient had a CT scan of the chest which I personally. Initially demonstrating the beginnings of a right lower lobe pneumonia then subsequent CT scan that she had during hospital stay demonstrated a more lobar consolidation. Her blood cultures were positive for streptococcal pneumonia. The patient was treated appropriately. She did have a prolonged ICU stay in requiring a prolonged period of intubation and vasopressor therapy. The patient now is much better. Although, she is significantly weak and she also lost her hearing. We able to communicate through a dictation device. She is working with physical therapy at home. 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 The patient will benefit from pulmonary rehabilitation when she completes [facility]. She will need to have pulmonary function studies and then was start pulmonary rehabilitation. In the meantime she continues use her respiratory therapy with good effect. Will go ahead and request blood work in view of the fact that she did get vaccinated for pneumococcal pneumonia just a couple months before she ended up with pneumococcal pneumonia. Therefore will give another vaccination and also check the blood work. 05/26/2024 the patient is here for a pulmonary follow-up visit. Overall the patient has been recovering after her very serious hospitalization. She also has been following closely Rheumatology. Seems like her biologic therapy for her connective tissue disease is helping her both RA and also treating her sarcoid. She does have a rescue inhaler but typically does not use it often. Typically less than 2 times a week. In addition to that the patient did have a CT scan of the chest which I personally reviewed with her. the patient appears to have a right-sided pulmonary nodule measuring more than a cm in the right hemithorax. In addition to that worsening tree-in-bud and bronchiolitis primarily on the left upper lobe in also lingula. This suggested smoldering infection. The patient is immunocompromised because of her immunosuppression due to her connective tissue disease Treatment. Therefore will have her undergo sputum sampling to see if this smoldering infection such as non tuberculosis mycobacterial infection. She has already had a negative TB test. If the CT scan is no better in 3 months or if his worsen then we can talk about bronchoscopy specially if we have not been able to adequately collect good sputum samples. 09/09/2024 the patient is here for a pulmonary follow-up visit. Overall she is doing very well. She is exercising regularly. Her breathing is that limiting her activity. Denies any significant chest congestion. She did get the Acapella valve but we did talk about using it more regularly. In addition to that she did have a CT scan of the chest that we personally reviewed. It appears that the tree-in-bud and bronchiolitis still about the same as it was before. Has not gotten worse which is reassuring. Although still there. Will try to increase CPT with nebulizer therapy as well to try to help her clear any mucous plugs from the bronchioles with the help of the nebulizer along with the Acapella valve. The patient is to do that once or twice a day. Will plan to follow-up in 6 months. Will plan to repeat the CT scan in 6 months if the area still there. If she does become symptomatic can always consider bronchoscopy for deep cultures. Although in her case right now because of her history of C diff colitis would be very cautious and also conscientious not to give him any medications that could worsen her risk of developing severe C diff again. [facility] Medical History Pulmonary nodule Bronchiolitis Cochlear implant in place BRE (acute kidney injury) Rheumatoid arthritis involving multiple joints COPD (chronic obstructive pulmonary disease) Atrial fibrillation with rapid ventricular response Blood poisoning due to Streptococcus pneumoniae bacteria Septic shock due to streptococcal infection Acute hypoxic respiratory failure Type 2 GA (myocardial infarction) Metabolic acidosis Hyperphosphatemia Septic shock Uremic encephalopathy Ischemic hepatitis Hypoxia Pancreatitis, acute Hypomagnesemia Sarcoidosis Hearing loss Streptococcal pneumonia Xanthelasma Pulmonary nodules Mild recurrent major depression Emphysema lung Hip bursitis Depression Essential hypertension Surgical History Xanthelasma of lower eyelid History of coronary angiogram Hx of left knee surgery H/O cataract removal with insertion of prosthetic lens H/O laminectomy Carpal tunnel syndrome on both sides Family History Mother Leukemia Father Diabetes Heart disease Brother Heart disease Other No family history of cancer Social History Household Members: Spouse Housing: House Are you a primary respite care provider to a significant other at home: Yes (Son) Do you presently have visiting nurse or other home services: No Unable to assess alcohol history related to: Unknown Alcohol intake: current Alcohol intake frequency: holidays/special occasions only Alcohol type: wine Comment: bilateral wrist restraints--intubated Patient Tobacco Use Status: Former Tobacco user Tobacco use type: Cigarette e-Cigarette/Vaping Use: Never Used Second Hand Smoke Exposure: No Substance Use Type: Marijuana service: No Current occupational status: retired Cognitive needs: Yes (wheelchair, walker,) Hearing needs: No Vision needs: Yes (reading glasses) Review of Systems Const Denies night sweats ENT Denies Normal hearing present, Denies change in voice, Reports hearing loss, Denies lip swelling, Denies mouth pain, Reports nasal congestion, Reports nasal discharge and Denies tongue swelling Card Denies chest pain and Reports dyspnea on exertion Resp Reports cough and Reports dyspnea on exertion GI Denies abdominal pain Musc Reports as per HPI, Reports abnormal gait, Reports myalgias, Reports arthralgias, Reports joint swelling and Reports muscle weakness Neuro Denies Normal hearing present, Denies Neuro-related abnormal movements and Reports abnormal gait Psych Denies no additional complaints Ricardo/Lymph Denies easy bleeding and Denies lymphadenopathy Aller/Immun Denies lip swelling and Denies tongue swelling Physical Exam Vital Signs: Last Vital Signs Pulse 72 09/09/24 09:58 BP 140/82 H 09/09/24 09:58 Pulse Ox 97 09/09/24 09:58 Oxygen Delivery Method Room Air 09/09/24 09:58 BMI result Body Mass Index 29.2 Const General: cooperative, comfortable, no acute distress, alert and awake Nutritional Appearance: average body habitus and other (Frail) Orientation/consciousness: patient oriented x3 Limitations: wheelchair Neck Neck: Yes trachea midline, Yes supple and Yes no JVD Chest Chest palpation & inspection: normal inspection of the chest Resp Effort & Inspection: normal respiratory effort Auscultation: diminished lung sounds Cardio Jugular venous distension: no JVD Rate: regular rate Rhythm: regular rhythm Heart sounds: S1 normal heart sound present, S2 normal heart sound present and no murmurs GI Auscultation: normal bowel sounds Skin General skin exam: no rashes or lesions noted Neuro General: patient oriented x3 and no focal motor deficits Cranial nerves: No Normal hearing present Extrem General: Yes no clubbing, cyanosis or edema Assessment & Plan Assessment & Plan (1) Sarcoidosis: Code(s): D86.9 - Sarcoidosis, unspecified Category: Medical (2) Seronegative rheumatoid arthritis: Comment: Hydroxychloroquine for 18 months failed Humira -dates unknown failed Enbrel 03/2020-06/2021-discontinued due to active synovitis. Methotrexate- 03/2020-01/2022- increased LFTs- resolved once stopped. Kevzara- 07/11-03/2022- low absolute neutrophils Orencia-03/2022-present effective. DC 08/2023 due to septic shock Actemra 11/2023 effective. PDN tapered off 05/2024 Code(s): M06.00 - Rheumatoid arthritis without rheumatoid factor, unspecified site Category: Medical (3) skilled nursing systemic steroid user: Code(s): Z79.52 - termite renewal inspector (current) use of systemic steroids Category: Medical (4) Emphysema lung: Code(s): J43.9 - Emphysema, unspecified Category: Medical Qualifiers: Emphysema type: centrilobular Qualified Code(s): J43.2 - Centrilobular emphysema (5) Pulmonary nodules: Code(s): R91.8 - Other nonspecific abnormal finding of lung field Category: Medical (6) Bronchiolitis: Code(s): J21.9 - Acute bronchiolitis, unspecified Category: Medical (7) Pulmonary nodule: Code(s): R91.1 - Solitary pulmonary nodule Category: Medical Plan Short-acting beta agonist as needed sputum for AFB Repeat CT cest in 6 months CPT with acapella valve and nebs follow-up in 6-[address] chest wo IV con 6 Months R91.1 - Solitary pulmonary nodule Coding Level of Care Code Est Pt Level 4 (82833) Diagnoses Sarcoidosis D86.9 Seronegative rheumatoid arthritis M06.00 skilled nursing systemic steroid user Z79.52 Centrilobular emphysema J43.2 Emphysema type: centrilobular Pulmonary nodules R91.8 Bronchiolitis J21.9 Pulmonary nodule R91.1 Time Spent (min) 17
[2024-09-09 09:58] VITALS: BP 140/82; PULSE 72; O2SAT 97; BMI 29.2
== END 2024-09-09 10:31 | disposition home or self-care (01) ==
PROVIDERS: PCP Internal Medicine; Visit Provider Hospitalist
DX: D86.9 Sarcoidosis, unspecified (principal); M06.00 Rheumatoid arthritis without rheumatoid factor, unspecified site; Z79.52 Long term (current) use of systemic steroids; J43.2 Centrilobular emphysema; R91.8 Other nonspecific abnormal finding of lung field; J21.9 Acute bronchiolitis, unspecified; R91.1 Solitary pulmonary nodule
CPT/HCPCS: 99214

== ENCOUNTER → 2024-09-09 09:51 | Outpatient (BNVA) | payer MEDICARE, SELFPAY | PROVIDERS: PCP Internal Medicine; Visit Provider Hospitalist | DX: J21.9 Acute bronchiolitis, unspecified (principal); J43.2 Centrilobular emphysema; D86.9 Sarcoidosis, unspecified; M06.00 Rheumatoid arthritis without rheumatoid factor, unspecified site; R91.8 Other nonspecific abnormal finding of lung field; R91.1 Solitary pulmonary nodule; Z79.52 Long term (current) use of systemic steroids | CPT/HCPCS: 99212 ==

== ENCOUNTER 2024-09-28 07:31 | Outpatient (REF) | payer MEDICARE, SELFPAY ==
[2024-09-28 11:48] LABS: Alanine Aminotransferase 26 U/L (0-31); Alkaline Phosphatase 54 U/L (39-117); Anion Gap 11 (12-20); Aspartate Amino Transferase 45 U/L (5-31); Bilirubin Total 0.5 mg/dL (0.0-1.0); Blood Urea Nitrogen 16 mg/dL (9-16); Calcium 9.5 mg/dL (8.4-10.2); Carbon Dioxide 28 mmol/L (22-29); Chloride 106 mmol/L (96-108); Estimated Glomerular Filt Rate > 60; Glucose Fasting 90 mg/dL (60-99); Potassium 4.2 mmol/L (3.3-5.1); Sodium 141 mmol/L (135-145); Total Protein 7.8 g/dL (6.5-8.0)
== END 2024-09-28 07:32 | disposition home or self-care (01) ==
LOC: HO.WFDLDS 07:31
PROVIDERS: Visit Provider Internal Medicine
DX: R09.89 Other specified symptoms and signs involving the circulatory and respiratory systems (principal)
CPT/HCPCS: 36415; 80053

== ENCOUNTER 2024-10-03 12:26 | Outpatient (AMB) | payer MEDICARE, SELFPAY ==
--- NOTE | 2024-10-03 12:33 | A.OFFPC_ITS ---
Vital Signs 10/03/24 12:35 Height 5 ft 7 in Weight 189 lb BMI 29.6 BP 134/70 Blood Pressure Location Lt brachial Position Sitting Intake Visit Reasons: Annual Exam Intake Note: Patient here for an annual physical exam Obiee Consultant Required: No Accompanied by: Daughter Allergies Tqrhihr-MHZ-IcN Reductase Inhibitor [BLAPDIA-VOV-RBR REDUCTASE INHIBITOR] Allergy (Severe, Verified 10/03/24 12:48) ANAPHYLACTIC apixaban [From Eliquis] Allergy (Intermediate, Verified 10/03/24 12:48) Vomiting Medication List - Last Reconciled 10/03/24 by Miguelina Flor MD Actemra ACTPen (tocilizumab) 162 mg (0.9 mL) subcut Q2W NS albuterol sulfate 90 mcg/actuation 2 inhalations inhalation Q6H PRN 30 days bupropion HCl XL (Wellbutrin XL) 150 mg PO DAILY 30 days carvedilol 6.25 mg PO BID cholecalciferol (vitamin D3) 50 mcg PO DAILY denosumab (Prolia) 60 mg subcut [id number] levalbuterol HCl 1.25 mg (3 mL) inhalation BID 90 days lisinopril 15 mg PO BID rivaroxaban (Xarelto) 20 mg PO QPM tramadol 50 mg PO Q6H PRN 30 days Tobacco use date assessed: 10/03/24 Fall risk assessment: No Falls in past year Last assessed Fall Risk: 10/03/24 Dental Screening Dental Screen Date: 10/03/24 Did you have a dental visit in the last 12 months?: Yes Did you have a dental problem in the last 6 months where you did not have access to dental care?: No Was dental information given to patient?: Patient has dentist HPI HPI Comments History of Present Illness Details The patient is a 74-year-old female presenting for her annual physical examination. She has a history of tubular adenoma discovered during a colonoscopy in 2018, which required a follow-up in five years. This colonoscopy is due in 2022. She also has rheumatoid arthritis follow by Rheumatology, COPD follow by pulmonology, paroxysmal atrial fibrillation on chronic anticoagulation follow by cardiology and mild recurrent major depression. The patient also reports a history of cataracts, depression managed with bupropion, and statin-induced anaphylaxis. She experienced vomiting with Eliquis, leading to its discontinuation. The patient was on dialysis previously but currently has stable kidney function. She has osteoporosis and receives Prolea injections for treatment. Furthermore, the patient has a history of carpal tunnel syndrome, coronary artery disease, and a recent cochlear implant. Her liver enzymes have been slightly elevated consistently over several years. The patient reports knee pain exacerbated by activity, for which she inquires about lidocaine patches as a potential relief method. - Pneumonia and tetanus vaccinations are up to date. - Last mammogram in 2021 with a schedule d follow-up in 2022. - Bone density study performed in 2022, with a follow-up scheduled next month. - Colonoscopy performed in 2017, follow- up due 2022 due to prior tubular adenoma findings. - Kidney function stable despite previou s dialysis history. - Stable elevated liver enzymes at 45, w ith normal being 31. - Depression managed well with bupropion . - Eye health maintenance includes past c ataract surgery. COUNTS INCLUDE 234 BEDS AT THE [facility] Medical History (Updated 10/03/24 @ 14:01 by Miguelina Flor MD) Pulmonary nodule Bronchiolitis BRE (acute kidney injury) Rheumatoid arthritis involving multiple joints COPD (chronic obstructive pulmonary disease) Atrial fibrillation with rapid ventricular response Blood poisoning due to Streptococcus pneumoniae bacteria Septic shock due to streptococcal infection Acute hypoxic respiratory failure Type 2 NJ (myocardial infarction) Metabolic acidosis Hyperphosphatemia Septic shock Uremic encephalopathy Ischemic hepatitis Hypoxia Pancreatitis, acute Hypomagnesemia Sarcoidosis Hearing loss Streptococcal pneumonia Xanthelasma Pulmonary nodules Mild recurrent major depression Emphysema lung Hip bursitis Depression Essential hypertension Surgical History (Updated 10/03/24 @ 12:58 by Miguelina Flor MD) Cochlear implant in place Xanthelasma of lower eyelid History of coronary angiogram Hx of left knee surgery H/O cataract removal with insertion of prosthetic lens H/O laminectomy Carpal tunnel syndrome on both sides Family History Mother Leukemia Father Diabetes Heart disease Brother Heart disease Other No family history of cancer Social History Household Members: Spouse Housing: House Are you a primary health care sanitary technician to a significant other at home: Yes (Son) Do you presently have visiting nurse or other home services: No Unable to assess alcohol history related to: Unknown Alcohol intake: current Alcohol intake frequency: holidays/special occasions only Alcohol type: wine Comment: bilateral wrist restraints--intubated Patient Tobacco Use Status: Former Tobacco user Tobacco use type: Cigarette e-Cigarette/Vaping Use: Never Used Second Hand Smoke Exposure: No Substance Use Type: Marijuana service: No Current occupational status: retired Cognitive needs: Yes (wheelchair, walker,) Hearing needs: No Vision needs: Yes (reading glasses) Questionnaire PHQ-9 Over the last 2 weeks, how often have you been bothered by any of the following problems? 1. Little interest or pleasure in doing things: not at all 2. Feeling down, depressed, or hopeless: not at all 3. Trouble falling or staying asleep, or sleeping too much: not at all 4. Feeling tired or having little energy: not at all 5. Poor appetite or overeating: not at all 6. Feeling bad about yourself - or that you are a failure or have let yourself or your family down: not at all 7. Trouble concentrating on things, such as reading the newspaper or watching television: not at all 8. Moving or speaking so slowly that other people could have noticed. Or the opposite - being so fidgety or restless that you have been moving around a lot more than usual: not at all 9. Thoughts that you would be better off or of hurting yourself in some way: not at all Total score: 0 Depression Screening Interpretation: Negative Depression Screening Done: Yes 41290 - PHQ-9 Billing: Yes Source: Developed by Drs. Alex Segovia, Fabiola Colón, Florentin Stevens and colleagues, with an educational josselyn from [employer]. Thrive Questionnaire Date Thrive assessed: 10/03/24 I am a: Patient What is your living situation today?: I have a steady place to live Within the past 12 months, did the food you bought not last and you didn't have the money to get more?: Never true Within the past 12 months, did you worry whether your food would run out before you got money to buy more?: Never true Do you have trouble paying for medicines?: No Do you have trouble getting transportation to medical appointments?: No Do you have trouble paying your heating and electricity bill?: No Do you have trouble taking care of your child, family member or friend?: No Do you have trouble with day-to-day activities such as bathing, preparing meals, shopping, managing finances, etc.?: No Are you currently unemployed and looking for a job?: No Are you interested in more education?: No Please select the resources that you would like help with: None Currently or been in a relationship where the following occur: No concerns reported THRIVE Score: 0 AUDIT C Alcohol Use Questionnaire (AUDIT-C) 1. How often do you have a drink containing alcohol?: Monthly or less 2. How many drinks containing alcohol do you have on a typical day when you are drinking?: 1 or 2 3. How often do you have six or more drinks on one occasion?: Never Total Score: 1 Score Reviewed/Action Taken: No LUPIS-7 AMB Questionnaire LUPIS-7 Date LUPIS - 7 assessed: 10/03/24 Feeling nervous, anxious, or on edge: 0 = Not at all Not being able to stop or control worryin = Not at all Worrying too much about different things: 0 = Not at all Trouble relaxin = Not at all Being so restless that it is hard to sit still: 0 = Not at all Becoming easily annoyed or irritable: 0 = Not at all Feeling afraid as if something awful might happen: 0 = Not at all Total LUPIS-7 score (0-4 normal; 5-9 mild; 10-14 moderate; 15-21 severe): 0 Source: Developed by Drs. Alex Segovia, Fabiola Colón, Florentin Stevens and colleagues, with an educational josselyn from [employer]. LUPIS-7 Assessment Billing LUPIS-7 Assessment Tool: LUPIS-7 Assessment 74589 Review of Systems Const All systems reviewed & are unremarkable except as noted in HPI and below Card Denies chest pain at rest, Denies chest pain with activity, Denies edema, Denies irregular heart rhythm, Denies claudication, Denies dyspnea, Denies dyspnea on exertion, Denies orthopnea, Denies paroxysmal nocturnal dyspnea and Denies slow heart rate Resp Denies cough, Denies dyspnea and Denies dyspnea on exertion Neuro Denies behavioral changes and Denies lack of coordination Psych Denies behavioral changes Physical exam (Primary Care) Vital Signs: Last Vital Signs BP 134/70 10/03/24 12:35 BMI result Body Mass Index 29.6 Tobacco/Smoking Status: Tobacco use Status Tobacco use date assessed 10/03/24 10/03/24 12:41 Patient Tobacco Use Status Former Tobacco user 10/03/24 12:41 Tobacco use type Cigarette 10/03/24 12:41 e-Cigarette/Vaping Use Never Used 10/03/24 12:41 PHQ-9: PHQ-9 Score PHQ-9: Total score 0 10/03/24 12:50 Depression Screening Interpretation: Negative Thrive Assessment: Date of Thrive Assessment Date Thrive assessed 10/03/24 10/03/24 12:41 Currently or been in a relationship where the following occur: No concerns reported HENMT Head: Yes normal to inspection, Yes normocephalic and Yes atraumatic Eyes General: appearance normal, both eyes and all related structures Eyelids: Yes eyelids normal Conjunctivae: conjunctivae normal Neck Neck: Yes normal visual inspection and Yes supple Resp Effort & Inspection: normal respiratory effort Auscultation: clear to auscultation bilaterally Cardio Jugular venous distension: no JVD Rate: regular rate Rhythm: regular rhythm Heart sounds: S1 normal heart sound present and S2 normal heart sound present GI Inspection: Yes normal to inspection Palpation (GI): Soft to palpation and nontender Auscultation: normal bowel sounds Skin General skin exam: no rashes or lesions noted Neuro General: no focal motor deficits Extrem General: Yes full ROM Psych Appearance: grossly normal Coding Level of Care Code Est Pt Prev Care >65y(77992) Diagnoses Physical exam Z00.00 Rheumatoid arthritis involving multiple joints M06.9 COPD (chronic obstructive pulmonary disease) J44.9 Paroxysmal atrial fibrillation I48.0 Mild recurrent major depression F33.0 Additional Codes LUPIS-7 Assessment Billing - LUPIS-7 Assessment Tool: LUPIS-7 Assessment 22870 ([id number]) PHQ-9 - 99398 - PHQ-9 Billing: Yes ([id number]) Time Spent (min) 31 Assessment & Plan Assessment & Plan (1) Physical exam: Code(s): Z00.00 - Encounter for general adult medical examination without abnormal findings Category: Medical (2) Rheumatoid arthritis involving multiple joints: Comment: Humira -dates unknown Enbrel 03/2020-06/2021-discontinued due to active synovitis. Methotrexate- 03/2020-01/2022- increased LFTs- resolved once stopped. Kevzara- 07/11-03/2022- low absolute neutrophils Jordyn-03/2022-present Code(s): M06.9 - Rheumatoid arthritis, unspecified Category: Medical (3) COPD (chronic obstructive pulmonary disease): Code(s): J44.9 - Chronic obstructive pulmonary disease, unspecified Category: Medical (4) Paroxysmal atrial fibrillation: Code(s): I48.0 - Paroxysmal atrial fibrillation Category: Medical (5) Mild recurrent major depression: Code(s): F33.0 - Major depressive disorder, recurrent, mild Category: Medical Plan - Schedule a colonoscopy for follow-up on tubular adenoma. - Prescribe lidocaine patches for knee pain management. - Continue current medications: bupropion for depression, carvedilol for coronary artery disease, and Prolea for osteoporosis. - Monitor the slightly elevated liver enzyme levels, consistent with past results. - Order blood work coinciding with the upcoming surgery for the cochlear imp lant, including cholesterol levels. Patient was informed and verbally consented to the use of an ambient scribe for clinic note documentation during this visit. I discussed the importance of follow-up with a scheduled colonoscopy due to the previous finding of a tubular adenoma in 2018, which necessitates reevaluation. We reviewed her medication list, ensuring avoidance of statins due to previous anaphylaxis, and agreed on continuing bupropion, noting its effectiveness in managing depression. We also emphasized the need to address knee pain by prescribing lidocaine patches. I reviewed the patient?s stable liver enzyme elevation, reflecting its consistency over past years and agreed on managing any changes in her upcoming labs related to her cochlear implant. We confirmed her bone density screening and other vaccinations are up to date. Orders: Orders Lipid Panel Today E78.5 - Hyperlipidemia, unspecified Referrals Gastroenterology Referral D12.6 - Benign neoplasm of colon, unspecified Patient Instructions: - Schedule a colonoscopy as recommended. - Use lidocaine patches as prescribed for knee pain relief. - Continue taking current medications as discussed, and report any side effects. - Keep the appointment for routine blood work ahead of the cochlear implant surgery. - Follow up in four months for reassessment and continue regular health maintenance activities. - Update me with any new or concerning symptoms.
[2024-10-03 12:35] VITALS: BP 134/70; BMI 29.6
== END 2024-10-03 13:10 | disposition home or self-care (01) ==
PROVIDERS: PCP Internal Medicine; Visit Provider Internal Medicine
DX: Z00.00 Encounter for general adult medical examination without abnormal findings (principal); M06.9 Rheumatoid arthritis, unspecified; J44.9 Chronic obstructive pulmonary disease, unspecified; I48.0 Paroxysmal atrial fibrillation; F33.0 Major depressive disorder, recurrent, mild

== ENCOUNTER → 2024-10-03 12:26 | Outpatient (BNVA) | payer MEDICARE, SELFPAY | PROVIDERS: PCP Internal Medicine; Visit Provider Internal Medicine | DX: Z00.00 Encounter for general adult medical examination without abnormal findings (principal); M06.9 Rheumatoid arthritis, unspecified; J44.9 Chronic obstructive pulmonary disease, unspecified; I48.0 Paroxysmal atrial fibrillation; F33.0 Major depressive disorder, recurrent, mild | CPT/HCPCS: 96127; 99397 ==

== ENCOUNTER 2024-11-02 09:51 | Outpatient (REF) | payer MEDICARE, SELFPAY ==
--- NOTE | ~2024-11-02 | MM_ITS ---
EXAMINATION: DXA BONE DENSITY AXIAL HISTORY: Estrogen deficiency TECHNIQUE: Thuuz Dual energy absorptiometry (DEXA) of the lumbar spine, total left hip, and femoral neck was performed. COMPARISON: Comparison is made with the prior examination dated 10/31/2022. FINDINGS: The bone mineral density of the lumbar spine is 1.486 with a T-score of 2.5, and a Z-score of 3.7. This represents a BMD change of 8.9% compared to the prior exam. This is statistically significant. The bone mineral density of the left total hip is 0.899 with a T-score of -0.9, and a Z-score of 0.4. This represents BMD change of 0.2% compared to the prior exam. This is not statistically significant. The bone mineral density of the left femoral neck is 0.883 with a T-score of -1.1, and a Z-score of 0.4. This represents BMD change of 0.2% compared to the prior exam. MM/XR DEXA axial skeleton IMPRESSION: Based on bone mineral density, and according to World Health Organization (WHO) criteria, the diagnosis is consistent with osteopenia. All bone density values are in grams per centimeter squared (g/cm2). Statistically, 68% of repeat scans fall within 1 SD (+/- 0.010 g/cm2 for AP spine L1-L4) and 1 SD (+/- 0.012 g/cm2 for femur total) FRAX is a trademark of the [employer]'s [place] [facility] Metabolic [employer] Disease, a World Health Organization (WHO) Collaborating Center. Electronically signed by: Alex Live MD 11/02/2024 11:35 AM [facility]
--- OUTSIDE RECORDS SUMMARY | 2024-11-02 11:27 | XMS_ITS | Clinical Summary ---
Author Organization [facility] Facility Address [address] [address] Care Team Providers Care Brake Shoe Rebuilder Name Role Phone Miguelina Soliman MD Primary Care Provider [phone] Allergies Active Allergy Reactions Criticality Noted Date Comments Apixaban 10/08/2023 Ibuprofen Low 09/18/2023 Statins Anaphylaxis High 11/06/2020 Medications acetaminophen (TYLENOL) 325 MG tablet Take 650 mg by mouth 4 Active albuterol HFA (PROVENTIL HFA;VENTOLIN HFA) 108 (90 Base) MCG/ACT inhaler INHALE 2 PUFFS EVERY 6 HOURS NEEDED FOR SHORTNESS OF BREATH OR WHEEZING FOR 30 DAYS 4 Active buPROPion XL (WELLBUTRIN XL) 150 MG 24 hr tablet Take 150 mg by mouth every morning 4 Active carvedilol (COREG) 12.5 MG tablet Take 12.5 mg by mouth in the morning and 12.5 mg in the evening. 4 Active rivaroxaban (XARELTO) 20 MG tablet Take 20 mg by mouth in the morning. 4 Active traMADol (ULTRAM) 50 MG tablet Take 50 mg by mouth every 6 (six) hours if needed 4 Active Active Problems Problem Noted Date Diagnosed Date Chronic obstructive pulmonary disease 11/16/2023 Atrial fibrillation with rapid ventricular respo nse 11/16/2023 Uremic encephalopathy 11/16/2023 Ischemic hepatitis 11/16/2023 Hypoxia 11/16/2023 Acute pancreatitis 11/16/2023 Hypomagnesemia 11/16/2023 Sarcoidosis 11/16/2023 Hearing loss 11/16/2023 Xanthelasma 11/16/2023 Bursitis of hip 11/16/2023 Xanthelasma 11/16/2023 Hearing loss 11/16/2023 Depressive disorder 11/16/2023 Family History Medical History Relation Comments Heart disease Brother Diabetes Father Heart disease Father Leukemia Mother Relation Status Comments Brother Father Mother Social History Tobacco Use Types Packs/Day Years Used Date Smoking Tobacco: Former Cigarettes Tobacco Cessation:Counseling Given: Not Answered Alcohol Use Standard Drinks/Week Comments Yes 0 (1 standard drink = 0.6 oz pur e alcohol) socially Comments Unknown Sex and Gender Information Value Date Recorded Sex Assigned at Not on file Legal Sex Female 8:13 AM EST Gender Identity Not on file Sexual Orientation Not on file Last Filed Vital Signs Vital Sign Reading Time Taken Comments Blood Pressure 160/74 11/19/2023 10:53 AM EST Pulse 89 11/19/2023 10:53 AM EST Temperature - - Respiratory Rate - - Oxygen Saturation - - Inhaled Oxygen Concentration - - Weight 74.8 kg (165 lb) 11/19/2023 10:53 AM EST Height - - Body Mass Index - - Plan of Treatment Health Maintenance Due Date Last Done Comments Breast Cancer Screening 1950 Colorectal Cancer Screening: Annual FOBT 1999 Colorectal Cancer Screening: Colonoscopy 1999 Colorectal Cancer Screening: Sigmoidoscopy 1999 Influenza Vaccine (#1) 2024 Pneumococcal Vaccine: 65+ Years Completed 05/26/2023, 12/08/2016 Hepatitis B Vaccine Aged Out No longe r eligible based on patient's age to complete this topic Insurance [facility] MEDICARE [employer] Care Teams Brake Shoe Rebuilder Relationship Specialty Start Date End Date Miguelina Soliman MD [address] [place] PCP - General Internal Medicine 11/19/23
--- OUTSIDE RECORDS SUMMARY | 2024-11-02 11:28 | XMS_ITS | Patient Health Record ---
Author Organization [facility] Address [address] [place] [address] Care Team Providers Care Component Prep Operator Name Role Phone Miguelina Soliman Primary Care Provider Andrei Clay Jr Unavailable ALLERGIES Allergen (clinical drug ingredient) Drug/Non Drug Allergy documented on EMR Reaction Allergy Type Onset Date Status Substance with 6-zexlbfs-6-methylgluta ryl-coenzyme A reductase inhibitor mechanism of action (substance) statins (uncoded) Unknown Allergy Active REASON FOR REFERRAL No Information MEDICATIONS Medication SIG (Take, Route, Frequency, Duration) Notes Start Date End Date Status Methotrexate 1 tab Oral Active Repatha 140 MG/ML 1 ml Subcutaneous 2 x a month Active Cannabus Medical Marijuana CBD daily Active amLODIPine Besylate 5 MG 1 tablet Orally Once a day Active Clopidogrel Bisulfate 75 MG 1 tablet Orally Once a day A ctive Wellbutrin 75 MG 1 tablet Orally Once a day Active Vitamin D 1000 UNIT 1 capsule Orally Onc e a day Active Lisinopril 40 MG 1 tablet Orally Once a day Active SOCIAL HISTORY Tobacco Use: Social History Observation Description Date Details (start date - stop date) Former Smoker NA - NA Sex Assigned At : Social History Observation Description Sex Assigned At Unknown Tobacco Use/Smoking Question Answer Notes Patient is a former smoker How long has it been since you last smoked? 5-10 years Alcohol Screen Question Answer Notes Did you have a drink contain ing alcohol in the past year? Yes How often did you have a dri nk containing alcohol in the past year? Monthly or less (1 point) How many drinks did you have on a typical day when you were drinking in the past year? 1 or 2 drinks (0 point) How often did you have 6 or more drinks on one occasion in the past year? Never (0 point) Points 1 Interpretation Negative PROBLEMS Problem Type ICD Code Onset Dates Problem Status W/U Status Risk SNOMED Code Notes Problem Colon cancer screening (Z12.11) Active confirmed [id number] Problem Encounter for current half-way use of antiplatelet drug (Z79.02) Active confirmed [id number] PLAN OF TREATMENT Future Test Test Name Order Date COLONOSCOPY 04/08/2018 Next Appt Details Provider Name:Andrei bui , 02/08/2025 10:20:00 AM, [address] [place] [address], [address], [place], [address], Insurance Providers Payer Name Payer Address Payer Phone Subscriber Number Group Number Insured Name Patient Relationship to Insured Coverage Start Date Coverage End Date [employer] [address] [place] [phone] [id number] SIRISHA VERDIN Self - patient is the insured MEDICAL (GENERAL) HISTORY Medical History History ICD Code peripheral arterial disease rheumatoid arthritis hypertension elevated cholesterol depression Surgical History Surgery Date(Month/Year) benign breast surgeries femoral artery with stent placements(tot al of 9) thumb surgery cataract-lens implants----both eyes
--- OUTSIDE RECORDS SUMMARY | 2024-11-02 11:28 | XMS_ITS | Continuity of Care Document ---
Author Organization [place] - [facility], [facility] Address [address] [place] [address] Care Team Providers Care Prevention Specialist Name Role Phone MAXX DURAN Primary Care Provider [phone] Assessment Encounter Date Assessment Date Assessment LastModified by Organization Details LastModified Time 11/01/2024 11/01/2024 The right cochlear implant remains in good position and well-functioning . Patient is quite pleased with her performance on the right and is eager to proceed with implantation of the left ear. The patient has been found to meet the anatomic and audiologic candidacy criteria for cochlear implantation in the left ear. Today we discussed the risks, benefits, and complications associated with cochlear implantation, including the risks of bleeding, infection, CSF leak, temporary or permanent facial nerve paralysis or paresis, delayed facial paresis, long-term risk of meningitis, and risk for device failure or need for device removal or replacement. We discussed the importance of keeping up-to-date Prevnar 20 vaccine to reduce the long-term risk of meningitis. After full discussion, the patient would like to go ahead and proceed with implantation. We will be implanting the left ear with the Organic To Go CI 632implant. After full discussion, the patient would like to proceed with surgery. I have provided patient with the contact information for my registered nurse surgical services. We will begin the scheduling process and see the patient back at the time of surgery. Patient will not require medical clearance from their primary care provider preoperatively. Patient already has an appointment with Leslie Agosto with Cochlear to set up her implant order. Not available 11/01/2024 13:53:38 Plan of Treatment Reminders Order Date Submit Date Provider Last Modified By Organization Details Last Modified Time Details Appointments SURGERY 120 2024 12:00P Dago MILLER MD Not available Not available Not available Lab None recorded. Referral None recorded. Procedures None recorded. Surgeries cochlear device implantat ion (SURG) 2024 025 [email or web address] Not available 11/01/2024 14:29:14 Imaging None recorded. Medication Orders None recorded. Patient TargetsNo targets recorded. Patient InstructionsNo instructions recorded. Reason for Referral None Reported. Problems Name Problem SNOMED Code Status Onset Date Resolution Date Notes Provider Name and Address Organization Details Recorded Time Sensorine ural hearing loss of bilateral ears 948166123 Active 2023 Sensorineu ral hearing loss, bilateral; Note: Date Diagnosed: 10/08/2023 4:56 PM (H90.3) Not Available [facility] 4 02:33:39 Postopera tive nausea and vomiting 6629005 Active 2023 GISSELL RODRÍGUEZ MD [address] [place] [address], [place], [address] , [facility] 4 04:28:19 Problem Notes None recorded. Medical Equipment Implant [employer] Issuing Agency Serial Number Lot Number Status Provider Name and Address Organization Details Recorded Time Cochlear implant FDA [id number] Y THOMAS MILLER MD [address] [place] [address], [place], [address], [facility] 02/26/2024 09:14:31 Allergies Allergen ID Allergen Name Allergen Category Reaction Reaction Severity Criticality Documentation Date Start Date Code Code System Note Provider Name and Address Organization Details Recorded Time 26679 Product containin g 3-hydroxy -3-methyl glutaryl- coenzyme A reductase inhibitor (product) medicatio n other Not available Not available 02/02/2024 57750 009 SNOMED React ion: Unkno wn; Not Available [facility] 4 00:59:28 64536 Eliquis medicatio n other Not available Not available 02/02/2024 36722 36 RxNorm React ion: Unkno wn; Not Available [facility] 4 00:59:28 Medications Name Sig Start Date Stop Date Status Note LastModified by Organization Details LastModified Time potassium chloride ER 10 mEq capsule,e xtended release TAKE 1 CAPSULE BY MOUTH EVERY DAY FOR 5 DAYS 06/28 completed Not Available Not Available Not Available carvedilo l 6.25 mg tablet TAKE 1 TAB ORALLY 2 TIMES A DAY FOR 90 DAYS MUST ADMINIST ER WITH A MEAL/SAMMY D active Not Available Not Available No t Available prednison e 10 mg tablet by mouth 02/25 completed Medicati on ID: [id number] D uration Value: 14 Brand Name: predniso ne Send Method: E-Prescr ibed Sub s Allowed: subs OK Speci al Instruct ion: Take 6 tabs PO QD X 9 days, then 5 tabs PO QD day 10, 4 tabs day 11, 3 tabs day 12, 2 tabs day 13 and 1 tab day 14 Medic ationGen ericName : predniso ne Medic ation ID: [id number] D uration Value: 14 Brand Name: predniso ne Send Method: E-Prescr ibed Sub s Allowed: subs OK Speci al Instruct ion: Take 6 tabs PO QD X 9 days, then 5 tabs PO QD day 10, 4 tabs day 11, 3 tabs day 12, 2 tabs day 13 and 1 tab day 14 Medic ationGen ericName : predniso ne Not Available Not Available Not Available carvedilo l 12.5 mg tablet 06/28 completed Medicati on ID: [id number] B rand Name: carvedil ol Send Method: E-Prescr ibed Sub s Allowed: subs OK Medic ationGen ericName : carvedil ol Not Available Not Available Not Available prednison e 5 mg tablet TAKE 1 TABLET BY MOUTH EVERY DAY 06/28 completed Not Available Not Available Not Available clopidogr el 75 mg tablet 06/28 completed Medicati on ID: [id number] B rand Name: clopidog rel Send Method: E-Prescr ibed Sub s Allowed: subs OK Medic ationGen ericName : clopidog rel Not Available Not Available Not Available amlodipin e 5 mg tablet 06/28 completed Medicati on ID: [id number] B rand Name: amlodipi ne Send Method: E-Prescr ibed Sub s Allowed: subs OK Medic ationGen ericName : amlodipi ne Not Available Not Available Not Available tramadol 50 mg tablet TAKE 1 TABLET BY MOUTH EVERY 6 HOURS NEEDED FOR PAIN FOR 30 DAYS active Not Available Not Available No t Available vancomyci n 125 mg capsule TAKE 1 CAPSULE BY MOUTH 4 TIMES A DAY FOR 10 DAYS 06/28 completed Not Available Not Available Not Available prednison e 2.5 mg tablet TAKE 1 TABLET BY MOUTH DAILY 06/28 completed Not Available Not Available Not Available lisinopri l 10 mg tablet TAKE 3 TABLETS BY MOUTH EVERY DAY active Not Available Not Available No t Available lisinopri l 5 mg tablet TAKE 1 TABLET BY MOUTH TWICE A DAY 06/28 completed Not Available Not Available Not Available levalbute rol 1.25 mg/3 mL solution for nebulizat ion 1.25 MG (3 ML) INHALED 2 TIMES A DAY FOR 90 DAYS active Not Available Not Available No t Available albuterol sulfate HFA 90 mcg/actua tion aerosol inhaler active Medicati on ID: [id number] B rand Name: albutero l sulfate Send Method: E-Prescr ibed Sub s Allowed: subs OK Medic ationGen ericName : albutero l sulfate Not Available Not Available Not Available lisinopri l 40 mg tablet 06/28 completed Medicati on ID: [id number] B rand Name: lisinopr il Send Method: E-Prescr ibed Sub s Allowed: subs OK Medic ationGen ericName : lisinopr il Not Available Not Available Not Available ondansetr on 4 mg disintegr ating tablet PLACE 1 TABLET ON TOP OF THE TONGUE EVERY 8 HOURS NEEDED 06/28 completed Not Available Not Available Not Available oxycodone 5 mg tablet 06/28 completed Not Available Not Available Not Available bupropion HCl XL 150 mg 24 hr tablet, extended release TAKE 1 TABLET BY MOUTH DAILY active Not Available Not Available No t Available nitrofura ntoin monohydra te/macroc rystals 100 mg capsule 06/28 completed Medicati on ID: [id number] B rand Name: nitrofur antoin monohyd/ m-cryst Send Method: E-Prescr ibed Sub s Allowed: subs OK Medic ationGen ericName : nitrofur antoin monohyd/ m-cryst Not Available Not Available Not Available diclofena c 1 % topical gel APPLY 2G TOPICALL Y 4 TIMES A DAY NEEDED FOR FOR PAIN 06/28 completed Not Available Not Available Not Available Prolia 60 mg/mL subcutane ous syringe active Not Available Not Available Not Available Xarelto 20 mg tablet TAKE 1 TABLET ORALLY EVERY EVENING MUST ADMINIST ER WITH EVENING MEAL active Not Available Not Available No t Available Praluent Pen 150 mg/mL subcutane ous pen injector INJECT 1 ML (150 MG TOTAL) UNDER THE SKIN EVERY 14 (FOURTEE N) DAYS. active Not Available Not Available No t Available Orencia ClickJect 125 mg/mL subcutane ous auto-inje ctor 06/28 completed Not Available Not Available Not Available Actemra ACTPen 162 mg/0.9 mL subcutane ous pen injector active Not Available Not Available Not Available Vitals Date Recorded Body height Body mass index (BMI) Body weight Provider Name and Address Organization Details Last Updated DateTime 11/01/2024 170.18 cm 26.3 kg/m2 38602.52 g Ada Mccormack [place] - [facility] 11/01/2024 13:34:58 Social History None recorded. Functional Status None recorded. Mental Status None recorded. Family History Nothing Reported. Medical History No medical history recorded. Gynecological HistoryNo gynecological history recorded. Obstetrics History GPAL:G 0 P 0 0 0 0 Past Encounters Encounter ID Performer Location Encounter Start Date Encounter Closed Date Diagnosis/Indication Diagnosis SNOMED-CT Code Diagnosis ICD10 Code Diagnosis Note [id number] THOMAS MILLER MD [facility] [address] [address] 11/01/2024 13:29:03 11/01/2024 14:00:42 Sensorineural hearing loss of bilateral ears 354829163 H90.3 Cochlear p rosthesis in situ 359986349 Z96.21 Health Concerns Section Related Observation LastModified by Organization Detai ls LastModified Time None Recorded Concern Status LastModified by Organization Details LastModified Time None Recorded Payers Encounter Date Sequence Insurance Name Policy Number Policy Durbin Covered Member ID Durbin Member ID Guarantor Name 11/01/2024 1 [facility] (MEDICARE REPLACEMENT HMO) Tasha Nieto [id number] Tasha Nieto Notes Date Note Type Note Provider Name and Address Organization Details Recorded Time 11/01/2024 text/html Status post plac ement of right cochlear implant on 02/26/2024. She had some dizziness postoperatively and used some Zofran. Otherwise uneventful postoperative course. She has been following up at the [facility] for implant mapping. Able to use the phone with relative ease. She went to physical therapy to help with her residual balance disturbance which has since resolved.Patient has undergone updated cochlear implant evaluation for her left ear with Shruti Freeman and has been found to meet the audiologic candidacy criteria for cochlear implantation on the left. She has already been found to meet the anatomic candidacy criteria for cochlear implantation. She would like to go ahead and proceed with scheduling placement of left cochlear implant. Patient comes in today accompanied by her daughter. THOMAS MILLER MD [address] [place] [address], [address], [place] - [facility] 11/01/2024 14:00:19 OBGyn Episode No OBEpisode recorded.
--- OUTSIDE RECORDS SUMMARY | 2024-11-02 11:28 | XMS_ITS ---
Author Organization [facility] Address Unknown Allergies, Adverse Reactions, Alerts Substance Reaction Status Noted Date Resolved Date Statins active 09/18/2023 Ibuprofen active 09/18/2023 Problems Problem Status Start Date End Date OTHER LACK OF COORDINATION (Primary) (R27.8 - ICD-10-C M) ACTIVE 09/18/2023 ACUTE RESPIRATORY FAILURE WI TH HYPOXIA (J96.01 - ICD-10-CM) ACTIVE 09/18/2023 DYSPHAGIA, OROPHARYNGEAL PHASE (R13.12 - ICD-10-CM) AC TIVE 09/18/2023 MUSCLE WASTING AND ATROPHY, NOT ELSEWHERE CLASSIFIED, MULTIPLE SITES (M62.59 - ICD-10-CM) ACTIVE 09/18/2023 SEVERE SEPSIS WITH SEPTIC SHOCK (R65.21 - ICD-10-CM) A CTIVE 09/18/2023 PNEUMONIA, UNSPECIFIED ORGANISM (J18.9 - ICD-10-CM) AC TIVE 09/18/2023 PNEUMOCOCCAL MENINGITIS (G00.1 - ICD-10-CM) ACTIVE 09/18/2023 ACUTE KIDNEY FAILURE, UNSPECIFIED (N17.9 - ICD-10-CM) ACTIVE 09/18/2023 EMPHYSEMA, UNSPECIFIED (J43.9 - ICD-10-CM) ACTIVE 09/18/2023 NON-ST ELEVATION (NSTEMI) MY OCARDIAL INFARCTION (I21.4 - ICD-10-CM) ACTIVE 09/18/2023 SARCOIDOSIS, UNSPECIFIED (D86.9 - ICD-10-CM) ACTIVE 09/18/2023 HYPOKALEMIA (E87.6 - ICD-10-CM) ACTIVE RHEUMATOID ARTHRITIS, UNSPECIFIED (M06.9 - ICD-10-CM) ACTIVE 09/18/2023 IDIOPATHIC ACUTE PANCREATITI S WITHOUT NECROSIS OR INFECTION (K85.00 - ICD-10-CM) ACTIVE 09/18/2023 LOCALIZED OSTEOPOROSIS [LEQUESNE] (M81.6 - ICD-10-CM) ACTIVE 09/18/2023 SOLITARY PULMONARY NODULE (R91.1 - ICD-10-CM) ACTIVE 09/18/2023 ESSENTIAL (PRIMARY) HYPERTENSION (I10 - ICD-10-CM) ACT MIESHA 09/18/2023 DEPENDENCE ON RENAL DIALYSIS (Z99.2 - ICD-10-CM) ACTIV E 09/18/2023 Encounters Encounter Performer Performer Role Encounter Diagnoses Location Date Discharge - Discharged to home or self care - Home - [facility] 3 06:58 pm EST - 4 11:00 am EST Immunizations Vaccine Date Influenza 06/01/2023 12:00 am EDT (Shingles) Vaccine 03/25/2019 12:00 am EDT (COVID-19) Updated Moderna Vac cine 07/02/2023 12:00 am EDT (COVID-19) Pfizer Original Primary Dose Vaccine 2 of 2 12/16/2020 12:00 am EDT (COVID-19) Pfizer Original Primary Dose Vaccine 1 of 2 11/25/2020 12:00 am EST (COVID-19) Pfizer Original Booster Vacci ne 05/07/2021 12:00 am EDT (COVID-19) Pfizer Original Booster Vacci ne 11/04/2020 12:00 am EST (Respiratory Syncytial Virus) Abrysvo Bi valent Vaccine 06/01/2023 12:00 am EDT (COVID-19) Pfizer Bivalent Vaccine 05/30 12:00 am EDT (Pneumococcal) PCV13- Conjugate 13-nas t Vaccine 05/26/2023 12:00 am EDT (Tetanus, Diphtheria, and Acellular Pert ussis) Tdap 12/15/2018 12:00 am EDT (Pneumococcal) PPSV23- Polysaccharide 23 -valent Vaccine 12/08/2016 12:00 am EDT Social History
== END 2024-11-02 09:52 | disposition home or self-care (01) ==
LOC: HO.MAMMO 09:51
PROVIDERS: PCP Internal Medicine; Visit Provider Student in an Organized Health Care Education/Training Program
DX: M81.0 Age-related osteoporosis without current pathological fracture (principal)
CPT/HCPCS: 77080

== ENCOUNTER → 2024-11-02 10:00 | Outpatient (BNV) | payer MEDICARE, SELFPAY | PROVIDERS: PCP Internal Medicine; Visit Provider Radiology Diagnostic Radiology | DX: E28.39 Other primary ovarian failure (principal) | CPT/HCPCS: 77080 ==

== ENCOUNTER → 2024-11-16 07:53 | Outpatient (REF) | payer MEDICARE, SELFPAY ==
--- OUTSIDE RECORDS SUMMARY | 2024-11-16 07:57 | XMS_ITS | Data Portability ---
Author Organization [place] - [facility] Address [address] [address] Care Team Providers Care Millroom Supervisor Name Role Phone MIGUELINA DURAN Primary Care Provider Assessment Encounter Date Assessment Date Assessment LastModified by Organization Details LastModified Time 06/28/2024 06/28/2024 Right ear has healed well following placement of cochlear implant. She is extremely pleased with her progress with the implant so far. She will continue to follow-up with the [facility] for cochlear implant mapping. Patient is eager to proceed with placement of her left cochlear implant. I would recommend follow-up with me in about 4 months to await resolution of her residual balance disturbance and to finish getting settled in with her right cochlear implant, if everything is on track, we can start the scheduling process to implant the left ear. Not available 06/28/2024 14:57:37 11/01/2024 11/01/2024 The right cochlear implant remains [...] be implanting the left ear with the L8 SmartLight CI 632implant. After full discussion, the patient would like to proceed with surgery. I have provided patient with the contact information for my neurosurgical nurse practitioner. We will begin the scheduling process and see the patient back at the time of surgery. Patient will not require medical clearance from their primary care provider preoperatively. Patient already has an appointment with Leslie Agosto with Cochlear to set up her implant order. [email or web address] Not available 11/01/2024 13:53:38 Plan of Treatment Reminders Order Date Submit Date Provider Last Modified By Organization Details Last Modified Time Details Appointments SURGERY 120 2024 12:00P M THOMAS MILLER MD Not available Not available Not available Post Op 2024 02:45P M SANTO REILLY PA-C Not available Not available Not available Post Op 2024 11:00A M THOMAS MILLER MD Not available Not available Not available Lab None recorded. Referral None recorded. Procedures None recorded. Surgeries cochlear device implantat ion (SURG) 2024 025 [email or web address] Not available 11/01/2024 14:29:14 Imaging None recorded. Medication Orders None recorded. Patient TargetsNo targets recorded. Patient InstructionsNo instructions recorded. Reason for Referral None Reported. Results Created Date Observation Date Name Description Value Unit Range Abnormal Flag Note LastModifiedBy Organization Detail LastModifiedTime 02/29/20 24 02/26/2024 fluor oscop y evalu ation (PROC ) No observ ation record ed. [facility] [address], [place], [address], 03/07/2024 15:21:37 05/11/20 24 10/08/2023 imagi ng/di agnos tic resul t No observ ation record ed. [email or web address] Not Available 00:11:43 05/11/20 24 11/25/2023 cochl ear impla nt deter minat ion form* No observ ation record ed. Not Available 2023 14:56:10 05/11/20 24 09/05/2023 imagi ng/di agnos tic resul t No observ ation record ed. [email or web address] Not Available 00:12:53 05/11/20 24 09/06/2023 imagi ng/di agnos tic resul t No observ ation record ed. [email or web address] Not Available 00:12:54 05/11/20 24 09/10/2023 imagi ng/di agnos tic resul t No observ ation record ed. [email or web address] Not Available 00:12:56 08/11/2007/27/2024 audio gram No observ ation record ed. [email or web address] Not Available 07/23 14:06:39 Result Notes None recorded. Problems Name Problem SNOMED Code Status Onset Date Resolution Date Notes Provider Name and Address Organization Details Recorded Time Sensorine ural hearing loss of bilateral ears 175693653 Active 2023 Sensorineu ral hearing loss, bilateral; Note: Date Diagnosed: 10/08/2023 4:56 PM (H90.3) Not Available [facility] 02:33:39 Postopera tive nausea and vomiting 8428534 Active 2023 GISSELL RODRÍGUEZ MD [address] [place] [address], [phone] , [facility] - [facility] 04:28:19 Problem Notes None recorded. Procedures Surgical History None recorded. Imaging Results Imaging Date Name Status LastModified by Organization Details LastModified Time 02/26/2024 fluoroscopy evaluation (PROC) completed [email or web address] [facility] [address] [place] [address], [place], [address], 03/07/2024 15:21:37 10/08/2023 imaging/diagnosti c result completed Information not available 05/11/2024 00:11:43 11/25/2023 cochlear implant determination form* completed [email or web address] Information not available 06/28/2024 14:56:10 09/05/2023 imaging/diagnosti c result completed Information not available 05/11/2024 00:12:53 09/06/2023 imaging/diagnosti c result completed Information not available 05/11/2024 00:12:54 09/10/2023 imaging/diagnosti c result completed Information not available 05/11/2024 00:12:56 07/27/2024 audiogram completed [email or web address] Information n ot available 08/11/2024 14:06:39 Procedure Notes None recorded. Medical Equipment Implant [employer] Issuing Agency Serial Number Lot Number Status Provider Name and Address Organization Details Recorded Time Cochlear implant [facility] CI632 Y THOMAS MILLER MD [address] [place] [address], [phone], [facility] 02/26/2024 09:14:31 Allergies Allergen ID Allergen Name Allergen Category Reaction Reaction Severity Criticality Documentation Date Start Date Code Code System Note Provider Name and Address Organization Details Recorded Time 84628 Product containin g 3-hydroxy -3-methyl glutaryl- coenzyme A reductase inhibitor (product) medicatio n other Not available Not available 02/02/2024 54089 009 SNOMED React ion: Unkno wn; Not Available [facility] 4 00:59:28 81711 Eliquis medicatio n other Not available Not available 02/02/2024 19104 36 RxNorm React ion: Unkno wn; Not Available [facility] 4 00:59:28 Medications Name Sig Start Date [...] by mouth 02/25 completed Medicati on ID: [id number] D uration Value: 14 Brand Name: predniso ne Send Method: E-Prescr ibed Sub s Allowed: subs OK Speci al Instruct ion: Take 6 tabs PO QD X 9 days, then 5 tabs PO QD day 10, 4 tabs day 11, 3 tabs day 12, 2 tabs day 13 and 1 tab day 14 Medic ationGen ericName : predniso ne Medic ation ID: [id number] D uration Value: 14 Brand Name: predniso [...] mg tablet 06/28 completed Medicati on ID: [id number] B rand Name: carvedil ol Send Method: E-Prescr ibed Sub s Allowed: subs OK Medic ationGen ericName : carvedil ol Not Available Not Available Not Available prednison e 5 mg tablet TAKE 1 TABLET BY MOUTH EVERY DAY 06/28 completed Not Available Not Available Not Available clopidogr el 75 mg tablet 06/28 completed Medicati on ID: [id number] B rand Name: clopidog rel Send Method: E-Prescr ibed Sub s Allowed: subs OK Medic ationGen ericName : clopidog rel Not Available Not Available Not Available amlodipin e 5 mg tablet 06/28 completed Medicati on ID: 450602 B rand Name: amlodipi ne Send Method: [...] tion aerosol inhaler active Medicati on ID: 662319 B rand Name: albutero l sulfate Send Method: E-Prescr ibed Sub s Allowed: subs OK Medic ationGen ericName : albutero l sulfate Not Available Not Available Not Available lisinopri l 40 mg tablet 06/28 completed Medicati on ID: [id number] B rand Name: lisinopr il Send Method: [...] mg capsule 06/28 completed Medicati on ID: [id number] B rand Name: nitrofur antoin monohyd/ m-cryst [...] Available Vitals Date Recorded Body height Body weight Provider Name and Address Organization Details Last Updated DateTime 06/28/2024 170.18 cm 29668.52 g Miguelina Archer [place] - [facility] 06/28/2024 13:56:14 Date Recorded Body height Body mass index (BMI) Body weight Provider Name and Address Organization Details Last Updated DateTime 03/03/2024 170.18 cm 26.3 kg/m2 94518.52 g Miguelina Archer [facility] 03/03/2024 11:45:51 Date Recorded Body height Body mass index (BMI) Body weight Provider Name and Address Organization Details Last Updated DateTime 11/01/2024 170.18 cm 26.3 kg/m2 54206.52 g Ada Mccomrack [facility] 11/01/2024 13:34:58 Social History None recorded. Functional Status None recorded. Mental Status None recorded. Family History Nothing Reported. Medical History No medical history recorded. Gynecological HistoryNo gynecological history recorded. Obstetrics History GPAL:G 0 P 0 0 0 0 Past Encounters Encounter ID Performer Location Encounter Start Date Encounter Closed Date Diagnosis/Indication Diagnosis SNOMED-CT Code Diagnosis ICD10 Code Diagnosis Note [id number] SARAH FARMER MD [facility] [address] [address] 03/03/2024 11:38:42 03/03/2024 11:59:26 Sensorineural hearing loss of bilateral ears 305697152 H90.3 Sensorineu ral hearing loss in right ear 7084826238 9100 H90.A21 [id number] THOMAS MILLER MD [facility] [address] [address] 06/28/2024 13:33:51 06/28/2024 15:16:42 Sensorineural hearing loss of bilateral ears 271647601 H90.3 Cochlear p rosthesis in situ 969493525 Z96.21 [id number] THOMAS MILLER MD [facility] [address] [address] 11/01/2024 13:29:03 11/01/2024 14:00:42 Sensorineural hearing loss of bilateral ears 076283093 H90.3 Cochlear p rosthesis in situ 944024662 Z96.21 Health Concerns Section Related Observation LastModified by Organization Detai ls LastModified Time None Recorded Concern Status LastModified by Organization Details LastModified Time None Recorded Advance Directives Directive None Recorded Payers Encounter Date Sequence Insurance Name Policy Number Policy Durbin Covered Member ID Durbin Member ID Guarantor Name 03/03/2024 1 [employer] (MEDICARE SUPPLEMENT) Tasha Torres Emilia [id number] Tasha Torres Emilia 06/28/2024 1 [employer] (MEDICARE REPLACEMENT HMO) Tasha Torres Emilia [id number] Tasha Torres Emilia 11/01/2024 1 [employer] (MEDICARE REPLACEMENT HMO) Tasha Torres Emilia [id number] Tasha Torres Emilia Notes Date Note Type Note Provider Name and Address Organization Details Recorded Time 03/03/2024 text/html 73 year old sanjeev fisher presents with daughter for postoperative evaluation following implantation of right CI 02/26/[address] Miller. Reports she has been exceptionally dizzy and nauseated, though this is slowly improving. The area is quite tender. She had blood coming from the right ear yesterday after using a Q-tip. Scheduled for device mapping next week. SARAH FARMER MD [address] [place] [address], [phone], [facility] - [facility] 03/03/2024 16:57:19 06/28/2024 text/html Status post plac ement of right cochlear implant on 02/26/2024. She had some dizziness postoperatively and used some Zofran. Otherwise uneventful postoperative course. She has been following up at the [facility] for implant mapping. Able to use the phone with relative ease. Going to physical therapy to help with her residual balance disturbance. THOMAS MILLER MD [address] [place] [address], [phone], [facility] 06/28/2024 14:58:25 11/01/2024 text/html Status post plac ement of right cochlear implant on 02/26/2024. She had some dizziness postoperatively and used some Zofran. Otherwise uneventful postoperative course. She has been following up at the [facility] for implant mapping. [...] accompanied by her daughter. THOMAS MILLER MD [address] [place] [address], [phone], [facility] - [facility] 11/01/2024 14:00:19 OBGyn Episode No OBEpisode recorded.
--- OUTSIDE RECORDS SUMMARY | 2024-11-16 07:57 | XMS_ITS | Patient Health Record ---
Author Organization [facility] Address [address] [place] [address] Care Team Providers Care Group Reservations Coordinator Name Role Phone Miguelina Soliman Primary Care Provider Andrei Clay Jr Unavailable ALLERGIES Allergen (clinical drug ingredient) Drug/Non Drug Allergy documented on EMR Reaction Allergy Type Onset Date Status Substance with 5-xikyifu-4-methylgluta ryl-coenzyme A reductase inhibitor mechanism of action [...] Problem Colon cancer screening (Z12.11) Active confirmed 692943071 Problem Encounter for current detention use of antiplatelet drug (Z79.02) Active confirmed 064517306863900 PLAN OF TREATMENT Future Test Test Name Order Date COLONOSCOPY 04/08/2018 Next Appt Details Provider Name:Andrei bui , 02/08/2025 10:20:00 AM, [address] [place] [address], [address], [place], [address], Insurance Providers Payer Name Payer Address Payer Phone Subscriber Number Group Number Insured Name Patient Relationship to Insured Coverage Start Date Coverage End Date [employer] [address] JED AW[place] [phone] [id number] SIRISHA VERDIN Self - patient is the insured MEDICAL (GENERAL) HISTORY Medical History History ICD Code peripheral arterial disease rheumatoid arthritis hypertension elevated cholesterol depression Surgical History Surgery Date(Month/Year) benign breast surgeries femoral artery with stent placements(tot al of 9) thumb surgery cataract-lens implants----both eyes
--- OUTSIDE RECORDS SUMMARY | 2024-11-16 07:57 | XMS_ITS | Continuity of Care Document ---
Author Organization [place] - [facility], [facility] Address [address] [place] [address] Care Team Providers Care Delphi Developer Name Role Phone MAXX DURAN Primary Care Provider [phone] Assessment Encounter Date Assessment Date Assessment LastModified [...] be implanting the left ear with the [employer] CI 632implant. After full discussion, the patient would like to proceed with surgery. I have provided patient with the contact information for my surgical services assistant. We will begin the scheduling process and see the patient back at the time of surgery. Patient will not require medical clearance from their primary care provider preoperatively. Patient already has an appointment with Leslie Agosto with Cochlear to set up her implant order. [email or web address] Not available 11/01/2024 13:53:38 Plan of Treatment [...] cochlear device implantat ion (SURG) 2024 025 [email or web address] Not available 11/01/2024 14:29:14 Imaging None recorded. Medication Orders None recorded. Patient TargetsNo targets recorded. Patient InstructionsNo instructions recorded. Reason for Referral None Reported. Problems Name Problem SNOMED Code Status Onset Date Resolution Date Notes Provider Name and Address Organization Details Recorded Time Sensorine ural hearing loss of bilateral ears 886158804 Active 2023 Sensorineu ral hearing loss, bilateral; Note: Date Diagnosed: 10/08/2023 4:56 PM (H90.3) Not Available [facility] 4 02:33:39 Postopera tive nausea and vomiting 4960119 Active 2023 GISSELL RODRÍGUEZ MD [address] [address], [place], [address] , [facility] 4 04:28:19 Problem Notes None recorded. Medical Equipment Implant [employer] Issuing Agency Serial Number Lot Number Status Provider Name and Address Organization Details Recorded Time Cochlear implant FDA CI632 Y THOMAS MILLER MD [address] [place] [address],[place] [address], [place], [address], [facility] 02/26/2024 09:14:31 Allergies Allergen ID Allergen Name Allergen Category Reaction Reaction Severity Criticality Documentation Date Start Date Code Code System Note Provider Name and Address Organization Details Recorded Time 84155 Product containin g 3-hydroxy -3-methyl glutaryl- coenzyme A reductase inhibitor (product) medicatio n other Not available Not available 02/02/2024 47314 009 SNOMED React ion: Unkno wn; Not Available [facility] 4 00:59:28 04661 Eliquis medicatio n other Not available Not available 02/02/2024 36656 36 RxNorm React ion: Unkno wn; Not Available [facility] 00:59:28 Medications Name Sig Start Date Stop [...] by mouth 02/25 completed Medicati on ID: [id number] D uration Value: 14 Brand Name: predniso ne Send Method: E-Prescr ibed Sub s Allowed: subs OK Speci al Instruct ion: Take 6 tabs PO QD X 9 days, then 5 tabs PO QD day 10, 4 tabs day 11, 3 tabs day 12, 2 tabs day 13 and 1 tab day 14 Medic ationGen ericName : predniso ne Medic ation ID: [id number] D uration Value: 14 Brand Name: predniso [...] mg tablet 06/28 completed Medicati on ID: [id number] B rand Name: carvedil ol Send Method: E-Prescr ibed Sub s Allowed: subs OK Medic ationGen ericName : carvedil ol Not Available Not Available Not Available prednison e 5 mg tablet TAKE 1 TABLET BY MOUTH EVERY DAY 06/28 completed Not Available Not Available Not Available clopidogr el 75 mg tablet 06/28 completed Medicati on ID: [id number] B rand Name: clopidog rel Send Method: E-Prescr ibed Sub s Allowed: subs OK Medic ationGen ericName : clopidog rel Not Available Not Available Not Available amlodipin e 5 mg tablet 06/28 completed Medicati on ID: [id number] B rand Name: amlodipi ne Send Method: [...] tion aerosol inhaler active Medicati on ID: [id number] B rand Name: albutero l sulfate Send Method: E-Prescr ibed Sub s Allowed: subs OK [facility] : al[facility]ero l [facility] Not Available Not Available Not Available lisinopri l 40 mg tablet 06/28 completed Medicati on ID: [id number] B rand Name: lisinopr il Send Method: E-Prescr ibed Sub s Allowed: subs OK [facility] eric[facility] : lisinopr il Not Available Not [...] mg capsule 06/28 completed Medicati on ID: [id number] B rand Name: nitrofur antoin monohyd/ m-cryst [...] Updated DateTime 11/01/2024 170.18 cm 26.3 kg/m2 53285.52 g Ada Mccormack [place] - [facility] 11/01/2024 13:34:58 Social History None recorded. Functional Status None recorded. Mental Status None recorded. Family History Nothing Reported. Medical History No medical history recorded. Gynecological HistoryNo gynecological history recorded. Obstetrics History GPAL:G 0 P 0 0 0 0 Past Encounters Encounter ID Performer Location Encounter Start Date Encounter Closed Date Diagnosis/Indication Diagnosis SNOMED-CT Code Diagnosis ICD10 Code Diagnosis Note [id number] THOMAS MILLER MD [facility] [address] [address] 11/01/2024 13:29:03 11/01/2024 14:00:42 Sensorineural hearing loss of bilateral ears 755861366 H90.3 Cochlear p rosthesis in situ 708600334 Z96.21 Health Concerns Section Related Observation LastModified by Organization Detai ls LastModified Time None Recorded Concern Status LastModified by Organization Details LastModified Time None Recorded Payers Encounter Date Sequence Insurance Name Policy Number Policy Durbin Covered Member ID Durbin Member ID Guarantor Name 11/01/2024 1 [facility] PL[facility] (MEDICARE REPLACEMENT HMO) Tasha Nieto [id number] Tasha Torres Emilia Notes Date Note Type Note Provider Name and Address Organization Details Recorded Time 11/01/2024 text/html Status post plac ement of right cochlear implant on 02/26/2024. She had some dizziness postoperatively and used some Zofran. Otherwise uneventful postoperative course. She has been following up at the [facility] for implant mapping. [...] accompanied by her daughter. THOMAS MILLER MD [address] [place] [address], [place], [address], [facility] - [facility] 11/01/2024 14:00:19 OBGyn Episode No OBEpisode recorded.
--- OUTSIDE RECORDS SUMMARY | 2024-11-16 07:57 | XMS_ITS | Clinical Summary ---
Author Organization [facility] Facility Address [address] [address] Care Team Providers Care Compliance Examiner Name Role Phone Miguelina Soliman MD Primary Care Provider Allergies Active Allergy Reactions Criticality Noted Date [...] patient's age to complete this topic Insurance [facility] MEDICARE [facility] [employer] Care Teams Compliance Examiner Relationship Specialty Start Date End Date Miguelina Soliman MD [address] [place] PCP - General Internal Medicine 11/19/23
--- NOTE | 2024-11-16 08:02 | ECG_ITS ---
Test Reason : pre op Blood Pressure : */* mmHG Vent. Rate : 91 BPM Atrial Rate : 91 BPM P-R Int : 182 ms QRS Dur : 94 ms QT Int : 360 ms P-R-T Axes : 68 67 86 degrees QTcB Int : 442 ms Sinus rhythm with occasional Premature ventricular complexes Possible Left atrial enlargement Nonspecific ST abnormality Abnormal ECG When compared with ECG of 03-Feb-2024 07:25, Premature ventricular complexes are now Present Referred By: Miguelina Flor Electronically Signed By: Jeffrey Vela
== END ==
LOC: HO.CARD 07:53
PROVIDERS: PCP Internal Medicine; Visit Provider Internal Medicine
DX: R07.9 Chest pain, unspecified (principal)
CPT/HCPCS: 93005

== ENCOUNTER → 2024-11-16 08:02 | Outpatient (BNV) | payer MEDICARE, SELFPAY | PROVIDERS: PCP Internal Medicine; Visit Provider Internal Medicine Cardiovascular Disease | DX: I49.3 Ventricular premature depolarization (principal) | CPT/HCPCS: 93010 ==

== ENCOUNTER 2024-12-02 11:13 | Outpatient (REF) | payer MEDICARE, SELFPAY ==
--- OUTSIDE RECORDS SUMMARY | 2024-12-02 13:00 | XMS_ITS | Patient Health Record ---
Author Organization [facility] Address [address] [place] [address] Care Team Providers Care Javascript Web Developer Name Role Phone Miguelina Soliman Primary Care Provider Andrei Clay Jr Unavailable Allergies Allergen (clinical drug ingredient) Drug/Non Drug Allergy documented on EMR Reaction Allergy Type Onset Date Status Substance with 8-carmwpp-6-methylgluta ryl-coenzyme A reductase inhibitor mechanism of action (substance) statins (uncoded) Unknown Allergy Active Reason For Referral No Information Medications Medication SIG (Take, Route, Frequency, Duration) Notes [...] 1 tablet Orally Once a day Active Social History Tobacco Use: Social History Observation Description Date Details (start date - stop date) Former Smoker NA - NA Tobacco Use/Smoking Question Answer Notes Patient is [...] Never (0 point) Points 1 Interpretation Negative Problems Problem Type SNOMED Code ICD Code Onset Dates Problem Status W/U Status Risk Notes Problem 079131312 Colon cancer screening (Z12.11) Active confirmed Problem [id number] Encounter for current assisted use of antiplatelet drug (Z79.02) Active confirmed Plan Of Treatment Future Test Test Name Order Date COLONOSCOPY 04/08/2018 Next Appt Details Provider Name:Andrei bui , 02/08/2025 10:20:00 AM, [address] [place] [address], [facility] [address], [place], [address], Insurance Providers Payer Name Payer Address Payer Phone Subscriber Number Group Number Insured Name Patient Relationship to Insured Coverage Start Date Coverage End Date [employer] [address] [place] [phone] [id number] SRIISHA VERDIN Self - patient is the insured Medical (General) History Medical History History ICD Code peripheral arterial disease rheumatoid arthritis hypertension elevated cholesterol depression Surgical History Surgery Date(Month/Year) benign breast surgeries femoral artery with stent placements(tot al of 9) thumb surgery cataract-lens implants----both eyes
--- OUTSIDE RECORDS SUMMARY | 2024-12-02 13:00 | XMS_ITS ---
Author Organization [facility] Care Team Providers Care Feeder Associate Name Role Phone Sarbjit Vu Unavailable Unavailable Tawana Baires Unavailable Unavailable Alejandra Da Silva Unavailable Unavailable Allergies and adverse reactions Code CodeSystem Substance Reaction Severity StartDate Concern Status 541559985 SNOMED CT Statins Anaphylaxis (co de- 01411749, SNOMED CT) Severe 09/18/2023 active 5640 RXNORM Ibuprofen Eruption (code- 865149808, SNOMED CT) Mild 09/18/2023 active Care Team Name Role Address Phone Organization Dates Sarbjit Vu PCP [address], [address], [facility] (Office): : [facility] 09/18/2023 - 09/30/2023 Tawana Baires Attending Physician [address], [address], [place] (Office): : [facility] 09/18/2023 - 09/30/2023 Alejandra Da Silva Attending Physician [address], [address], [place] (Office): [facility] 09/18/2023 - 09/30/2023 Immunizations Immunization Status Vaccine Details Vaccine Code CodeSystem Date Notes Influenza completed Influenza, split virus, trivalent, injectable, contains preservative 141 CVX created date: 09/23/2023 administer ed date: 06/01/2023 (Shingles) Vaccine completed zoster vaccin e recombinant 187 CVX created date: 09/23/2023 administer ed date: 03/25/2019 first dose of two step 9 (COVID-19) 9930-9173 Updated Moderna Vaccine completed SARS-COV-2 (COVID-19) vaccine, mRNA, spike protein, LNP, preservative free, 50 mcg/0.5 mL dose 312 CVX created date: 09/23/2023 administer ed date: 07/02/2023 (COVID-19) Pfizer Original Primary Dose Vaccine 2 of 2 completed SARS-COV-2 (COVID-19) vaccine, mRNA, spike protein, LNP, preservative free, 30 mcg/0.3mL dose 208 CVX created date: 09/23/2023 administer ed date: 12/16/2020 (COVID-19) Pfizer Original Primary Dose Vaccine 1 of 2 completed SARS-COV-2 (COVID-19) vaccine, mRNA, spike protein, LNP, preservative free, 30 mcg/0.3mL dose 208 CVX created date: 09/23/2023 administer ed date: 11/25/2020 (COVID-19) Pfizer Original Booster Vaccine completed SARS-COV-2 (COVID-19) vaccine, mRNA, spike protein, LNP, preservative free, 30 mcg/0.3mL dose 208 CVX created date: 09/23/2023 administer ed date: 05/07/2021 (COVID-19) Pfizer Original Booster Vaccine completed SARS-COV-2 (COVID-19) vaccine, mRNA, spike protein, LNP, preservative free, 30 mcg/0.3mL dose 208 CVX created date: 09/23/2023 administer ed date: 11/04/2020 (Respiratory Syncytial Virus) Abrysvo Bivalent Vaccine completed Respiratory syncytial virus (RSV), vaccine, bivalent, protein subunit RSV prefusion F, diluent reconstituted, 0.5 mL, preservative free 305 CVX created date: 09/23/2023 administer ed date: 06/01/2023 (COVID-19) Pfizer Bivalent Vaccine completed SARS-COV-2 (COVID-19) vaccine, mRNA, spike protein, LNP, bivalent, preservative free, 30 mcg/0.3 mL dose, luis-sucrose formulation 300 CVX created date: 09/23/2023 administer ed date: 05/30/2022 (Pneumococcal) PCV13- Conjugate 13-valent Vaccine completed pneumococcal conjugate vaccine, 13 valent 133 CVX created date: 09/23/2023 administer ed date: 05/26/2023 (Tetanus, Diphtheria, and Acellular Pertussis) Tdap completed tetanus toxoid, reduced diphtheria toxoid, and acellular pertussis vaccine, adsorbed 115 CVX created date: 09/23/2023 administer ed date: 12/15/2018 (Pneumococcal) PPSV23- Polysaccharide 23-valent Vaccine completed pneumococcal polysaccharide vaccine, 23 valent 33 CVX created date: 09/23/2023 administer ed date: 12/08/2016 Mental Status Section Date Assessment Total Score Description 09/30/2023 CAM 0 No delirium ind icated 09/23/2023 BIMS 15 cognitively int act CAM 0 No delirium ind icated Problems Problem # Description Date of onset Resolved Date Code CodeSystem Concern Status 1 ACUTE KIDNEY FAILURE, UNSPECIFIED 09/18/[address] active 2 ACUTE RESPIRATORY FAILURE WITH HYPOXIA 09/18/[address] active 3 DEPENDENCE ON RENAL DIALYSIS 09/18/[address] active 4 DYSPHAGIA, OROPHARYNGEAL PHASE 09/18/[address] active 5 EMPHYSEMA, UNSPECIFIED 09/18/[address] active 6 ESSENTIAL (PRIMARY) HYPERTENSION 09/18/[address] active 7 HYPOKALEMIA 09/18/[address] active 8 IDIOPATHIC ACUTE PANCREATITIS WITHOUT NECROSIS OR INFECTION 09/18/[address] active 9 LOCALIZED OSTEOPOROSIS [LEQUESNE] 09/18/[address] active 10 MUSCLE WASTING AND ATROPHY, NOT ELSEWHERE CLASSIFIED, MULTIPLE SITES 09/18/[address] active 11 NON-ST ELEVATION (NSTEMI) MYOCARDIAL INFARCTION 09/18/[address] active 12 OTHER LACK OF COORDINATION 09/18/[address] active 13 PNEUMOCOCCAL MENINGITIS 09/18/[address] active 14 PNEUMONIA, UNSPECIFIED ORGANISM 09/18/[address] active 15 RHEUMATOID ARTHRITIS, UNSPECIFIED 09/18/[address] active 16 SARCOIDOSIS, UNSPECIFIED 09/18/[address] active 17 SEVERE SEPSIS WITH SEPTIC SHOCK 09/18/[address] active 18 SOLITARY PULMONARY NODULE 09/18/[address] active Reason for Referral No Reasons for Referral Entered Social History Social History Observation Description Start Date End Date Code Code System Current Smoking Status Tobacco smoking consumption unknown 616149040 SNOMED CT Sex Assigned At Female 1950 80887-5 [facility] Vital Signs Code Code System Vitals Name Values and Units Timing Information 9279-1 [facility] Respiratory Rate Value=18.0 Units=/m in 09/30/2023 8462-4 [facility] Blood Pressure-Diastolic Value=90 Un its=mmHg 09/30/2023 8480-6 [facility] Blood Pressure-Systolic Dwiot=474 Un its=mmHg 09/30/2023 8310-5 [facility] Body Temperature Value=97.5 Units=?? F 09/30/2023 8867-4 [facility] Heart rate Value=92.0 Units=/min 06/2024 77257-6 [facility] O2 % BldC Oximetry Value=97.0 Units= % 09/30/2023 31569-9 [facility] Pain Level Value=4.0 09/29/2023 97252-4 [facility] Weight Dtbsf=529.0 Units=Lbs 8302-2 [facility] Height Value=67.0 Units=Inches 09/19/2023
--- OUTSIDE RECORDS SUMMARY | 2024-12-02 13:00 | XMS_ITS | Clinical Summary ---
Author Organization [facility] Facility Address [address] [address] Care Team Providers Care Talking Books Library Clerk Name Role Phone Miguelina Soliman MD Primary Care Provider [phone] Allergies Active Allergy Reactions Criticality Noted Date [...] patient's age to complete this topic Insurance [facility] MEDICARE [facility] MED[facility]ARE Care Teams Talking Books Library Clerk Relationship Specialty Start Date End Date Miguelina Soliman MD [address] [place]OL[place] PCP - General Internal Medicine 11/19/23
[2024-12-02 14:58] LABS: Basophils Absolute Auto 0.1 X10*3/uL (0.0-0.2); Basophils Percent Auto 1.7 % (0-2); Eosinophils Absolute Auto 0.2 X10*3/uL (0.0-0.4); Eosinophils Percent Auto 3.8 % (0-4); Hematocrit 40.4 % (37.0-47.0); Hemoglobin 13.4 g/dl (12.0-16.0); Imm Gran Abs Auto 0.01 X10*3/uL (0.00-0.03); Imm Gran Pct Auto 0.2 % (0.0-0.4); Lymphocytes Absolute Auto 2.3 X10*3/uL (1.2-4.9); Lymphocytes Percent Auto 55.7 % (20-40); MANUAL DIFF FLAG SCAN; Mean Corpuscular HGB Conc 33.2 g/dl (31.0-35.0); Mean Corpuscular Hemoglobin 30.2 pg (27.0-33.0); Mean Corpuscular Volume 91.2 fL (80.0-98.0); Mean Platelet Volume 10.6 fL (9.4-12.3); Monocytes Absolute Auto 0.7 X10*3/uL (0.1-1.2); Monocytes Percent Auto 17.7 % (2-11); Neutrophils Absolute Auto 0.9 x10*3/uL (2.0-8.3); Neutrophils Percent Auto 20.9 % (45-73); Platelet Count 229 X10*3/uL (160-400); Red Blood Count 4.43 X10*6/uL (4.20-5.50); Red Cell Distribution Width 13.2 % (11.0-16.0); SCAN SMEAR FLAG 1; White Blood Count 4.2 X10*3/uL (4.8-10.8)
[2024-12-02 15:24] LABS: SLIDE REVIEW VERIFIED
[2024-12-02 15:31] LABS: Erythrocyte Sedimentation Rate 6 MM/HR (0-20)
[2024-12-02 17:33] LABS: Alanine Aminotransferase 29 U/L (0-31); Albumin Level 3.8 g/dL (3.5-5.0); Alkaline Phosphatase 69 U/L (39-117); Anion Gap 11 (12-20); Aspartate Amino Transferase 46 U/L (5-31); Bilirubin Total 0.4 mg/dL (0.0-1.0); Blood Urea Nitrogen 16 mg/dL (9-16); C Reactive Protein < 0.10 mg/dL (< or = 0.50); Calcium 9.3 mg/dL (8.4-10.2); Carbon Dioxide 24 mmol/L (22-29); Chloride 104 mmol/L (96-108); Estimated Glomerular Filt Rate > 60; Glucose Random 87 mg/dL (60-115); Potassium 4.1 mmol/L (3.3-5.1); Sodium 135 mmol/L (135-145); Total Protein 7.9 g/dL (6.5-8.0); Vitamin D 25-OH Total 68.9 ng/mL (>30)
[2024-12-03 04:34] LABS: HBc Num1 0.08 S/CO (0.00-0.79); HBsAGNum1 0.27 S/CO (0.00-0.99); Hepatitis A Antibody IgM 0.13 Index (0-0.79); Hepatitis B Core Antibody Nonreactive (Nonreactive); Hepatitis B Surface Antigen Negative (Negative); ~Hepatitis A Antibody IgM Nonreactive (Nonreactive); ~Hepatitis B Surface Antibody NONREACTIVE (Nonreactive); ~Hepatitis C Antibody Nonreactive (Nonreactive)
[2024-12-06 00:44] LABS: TS Negative Control Passed; TS Panel A 0; TS Panel B 0; TS Positive Control Passed; TSpotTB Negative (Negative)
[2024-12-07 14:34] LABS: Angiotensin Converting Enzyme 9 U/L (9-67)
== END 2024-12-02 11:14 | disposition home or self-care (01) ==
LOC: HO.WFDLDS 11:13
PROVIDERS: Visit Provider Student in an Organized Health Care Education/Training Program
DX: M06.9 Rheumatoid arthritis, unspecified (principal); Z11.59 Encounter for screening for other viral diseases; D86.9 Sarcoidosis, unspecified; Z11.7 Encounter for testing for latent tuberculosis infection; E55.9 Vitamin D deficiency, unspecified; Z72.89 Other problems related to lifestyle
CPT/HCPCS: 36415; 80053; 82164; 82306; 85025; 85652; 86140; 86481; 86704; 86706; 86709; 86803; 87340

== ENCOUNTER 2024-12-21 07:23 | Outpatient (AMB) | payer MEDICARE, SELFPAY ==
--- OUTSIDE RECORDS SUMMARY | 2024-12-21 07:27 | XMS_ITS | Clinical Summary ---
Author Organization [facility] Facility Address [address] [address] Care Team Providers Care Customer Acquisition Specialist Name Role Phone Miguelina Soliman MD Primary Care Provider [phone] Allergies Active Allergy Reactions Criticality Noted Date [...] patient's age to complete this topic Insurance [facility] MEDICARE [facility] MEDICARE Care Teams Customer Acquisition Specialist Relationship Specialty Start Date End Date Miguelina Soliman MD [address] [place] PCP - General Internal Medicine 11/19/23
--- OUTSIDE RECORDS SUMMARY | 2024-12-21 07:27 | XMS_ITS | Data Portability ---
Author Organization [place] [facility] Allergy Address [address] [address] Care Team Providers Care Automation Sales Manager Name Role Phone MAXX DURAN Primary Care Provider Assessment Encounter Date Assessment Date Assessment LastModified by Organization Details LastModified Time 06/28/2024 06/28/2024 Right ear has healed well following placement of cochlear implant. She is extremely pleased with her progress with the implant so far. She will continue to follow-up with the [facility] Cochlear Implant Program for cochlear implant [...] scheduling process to implant the left ear. [email or web address] Not available 06/28/2024 14:57:37 11/01/2024 11/01/2024 The [...] be implanting the left ear with the [email or web address] CI 632implant. After full discussion, the patient would like to proceed with surgery. I have provided patient with the contact information for my assistant professor surgical technology. We will begin the scheduling process and see the patient back at the time of surgery. Patient will not require medical clearance from their primary care provider preoperatively. Patient already has an appointment with Leslie Agosto with Cochlear to set up her implant order. Not available 11/01/2024 13:53:38 12/02/2024 12/02/2024 74yo female presents following left cochlear implant surgery on 11/25/[address] Miller. Patient is doing well post-operatively . Exam demonstrated well-healing postauricular incision and processor without fluid collection. Facial nerve is intact. Affected TM with expected hemotympanum. Recommend avoiding lifting more than 25 pounds or heavy exertion for 2 weeks. Recommend refraining from alcohol as it is dangerous when taking pain medications and tends to impede the healing process. Recommend continuing Tylenol and Motrin for minor discomfort. Patient is aware to contact office with severe dizziness, drainage of clear or infected fluid from the incision site, increased redness around the ear, otorrhea, neck pain, facial weakness, or obvious fluid collection over the device. Patient is aware they can gently wash incision site. Patient is scheduled with audiology later next week for mapping, and with Dr. Miller in 3 months. [email or web address] Not available 12/02/2024 16:36:37 Plan of Treatment Reminders Order Date Submit Date Provider Last Modified By Organization Details Last Modified Time Details Appointments Post Op 2024 11:00A M THOMAS MILLER MD Not available Not available Not available Lab None recorded. Referral None recorded. Procedures None recorded. Surgeries cochlear device implantat ion (SURG) 2024 025 Not available 11/01/2024 14:29:14 Imaging None recorded. Medication Orders None recorded. Patient TargetsNo targets recorded. Patient InstructionsNo instructions recorded. Reason for Referral None Reported. Results Created Date Observation Date Name Description Value Unit Range Abnormal Flag Note LastModifiedBy Organization Detail LastModifiedTime 02/29/20 24 02/26/2024 fluor oscop y evalu ation (PROC ) No observ ation record ed. [email or web address] [facility] [address], [place], [address], 03/07/2024 15:21:37 05/11/20 24 10/08/2023 imagi ng/di agnos tic resul t No observ ation record ed. [email or web address] Not Available 00:11:43 05/11/20 24 11/25/2023 cochl ear impla nt deter minat ion form* No observ ation record ed. [email or web address] Not Available 2023 14:56:10 05/11/20 24 09/05/2023 imagi ng/di agnos tic resul t No observ ation record ed. [email or web address] Not Available 00:12:53 05/11/20 24 09/06/2023 imagi ng/di agnos tic resul t No observ ation record ed. [email or web address] Not Available 00:12:54 05/11/20 24 09/10/2023 imagi ng/di agnos tic resul t No observ ation record ed. [email or web address] Not Available 00:12:56 08/11/20 24 07/27/2024 audio gram No observ ation record ed. [email or web address] Not Available 07/23 14:06:39 11/26/19 25 11/25/2024 fluor oscop y (PROC ) No observ ation record ed. [email or web address] [facility] [address] [facility], [place], [address], 11/25/2024 16:40:30 Result Notes None recorded. Problems Name Problem SNOMED Code Status Onset Date Resolution Date Notes Provider Name and Address Organization Details Recorded Time Sensorine ural hearing loss of bilateral ears 092941935 Active 2023 Sensorineu ral hearing loss, bilateral; Note: Date Diagnosed: 10/08/2023 4:56 PM (H90.3) Not Available [employer] 02:33:39 Postopera tive nausea and vomiting 0124151 Active 2023 GISSELL RODRÍGUEZ MD [address] [place], [place] [address] [place], [address] , [facility] - [facility] 04:28:19 Problem Notes None recorded. Procedures Surgical History Date Name Laterality Status Provider Name and Address Organization Details Recorded Time 11/26/19 25 COCHLEAR DEVICE IMPLANTATION (SURG) completed Rosalio Marcelino [place] - [facility] 11/25/2024 15:36:38 11/26/19 25 COCHLEAR DEVICE IMPLANTATION (SURG) completed Rosalio Marcelino [facility] 11/28/2024 13:17:48 Imaging Results Imaging Date Name Status LastModified by Organization Details LastModified Time 02/26/2024 fluoroscopy evaluation (PROC) completed [email or web address] [facility] [address] [address], [place], [address], 03/07/2024 15:21:37 10/08/2023 imaging/diagnosti c result completed Information not available 05/11/2024 00:11:43 11/25/2023 cochlear implant determination form* completed [email or web address] Information not available 06/28/2024 14:56:10 09/05/2023 imaging/diagnosti c result completed Information not available 05/11/2024 00:12:53 09/06/2023 imaging/diagnosti c result completed Information not available 05/11/2024 00:12:54 09/10/2023 imaging/diagnosti c result completed Information not available 05/11/2024 00:12:56 07/27/2024 audiogram completed [email or web address] Information n ot available 08/11/2024 14:06:39 11/25/2024 fluoroscopy (PROC) completed [email or web address] [facility] [address] [place], [address], 11/25/2024 16:40:30 Procedure Notes None recorded. Medical Equipment Implant [employer] Issuing Agency Serial Number Lot Number Status Provider Name and Address Organization Details Recorded Time Cochlear implant FDA [id number] Y THOMAS MILLER MD [address] [facility] [address], [place], [address] , [facility] 4 09:14:31 Cochlear implant [facility] [id number] Y THOMAS MILLER MD [address] [place] [address], [facility] [place], [address] , [facility] - [facility] 5 09:37:19 Allergies Allergen ID Allergen Name Allergen Category Reaction Reaction Severity Criticality Documentation Date Start Date Code Code System Note Provider Name and Address Organization Details Recorded Time 82336 Product containin g 3-hydroxy -3-methyl glutaryl- coenzyme A reductase inhibitor (product) medicatio n other Not available Not available 02/02/2024 52668 009 SNOMED React ion: Unkno wn; Not Available [facility] 4 00:59:28 67210 Eliquis medicatio n other Not available Not available 02/02/2024 54204 36 RxNorm React ion: Unkno wn; Not Available [facility] 4 00:59:28 Medications Name Sig Start Date [...] by mouth 02/25 completed Medicati on ID: [id number] D uration Value: 14 Brand Name: predniso ne Send Method: E-Prescr ibed Sub s Allowed: subs OK Speci al Instruct ion: Take 6 tabs PO QD X 9 days, then 5 tabs PO QD day 10, 4 tabs day 11, 3 tabs day 12, 2 tabs day 13 and 1 tab day 14 Medic ationGen ericName : predniso ne Medic ation ID: [id number] D uration Value: 14 Brand Name: predniso [...] mg tablet 06/28 completed Medicati on ID: 368952 B rand Name: carvedil ol Send Method: E-Prescr ibed Sub s Allowed: subs OK Medic ationGen ericName : carvedil ol Not Available Not Available Not Available prednison e 5 mg tablet TAKE 1 TABLET BY MOUTH EVERY DAY 06/28 completed Not Available Not Available Not Available clopidogr el 75 mg tablet 06/28 completed Medicati on ID: 694681 B rand Name: clopidog rel Send Method: E-Prescr ibed Sub s Allowed: subs OK Medic ationGen ericName : clopidog rel Not Available Not Available Not Available amlodipin e 5 mg tablet 06/28 completed Medicati on ID: 186097 B rand Name: amlodipi ne Send Method: [...] completed Not Available Not Available Not Available ondansetr on 8 mg disintegr ating tablet PLACE 1 TABLET EVERY 8 HOURS ON TONGUE & LET DISSOLVE NEEDED FOR 4 DAYS, FOR NAUSEA. active Not Available Not Available No t Available prednison e 2.5 mg tablet TAKE [...] tion aerosol inhaler active Medicati on ID: 350923 B rand Name: albutero l sulfate Send Method: E-Prescr ibed Sub s Allowed: subs OK Medic ationGen ericName : albutero l sulfate Not Available Not Available Not Available lisinopri l 40 mg tablet 06/28 completed Medicati on ID: 089023 B rand Name: lisinopr il Send Method: E-Prescr ibed Sub s Allowed: subs OK Medic ationGen ericName : lisinopr il Not Available Not Available Not Available ondansetr on 4 mg disintegr ating tablet PLACE 1 TABLET ON TOP OF THE TONGUE EVERY 8 HOURS NEEDED 06/28 completed Not Available Not Available Not Available oxycodone 5 mg tablet TAKE 1 TABLET BY MOUTH EVERY 4 TO 6 HOURS FOR 3 DAYS active Not Available Not Available No t Available bupropion HCl XL 150 mg 24 hr tablet, extended release TAKE 1 TABLET BY MOUTH EVERY DAY active Not Available Not Available No t Available nitrofura ntoin monohydra te/macroc rystals 100 mg capsule 06/28 completed Medicati on ID: [id number] B rand Name: nitrofur antoin monohyd/ m-cryst [...] and Address Organization Details Last Updated DateTime 12/02/2024 170.18 cm 29.8 kg/m2 44382.55 g Angeles Deng [place] - [facility] 12/02/2024 14:48:13 Date Recorded Body height Body weight Provider Name and Address Organization Details Last Updated DateTime 06/28/2024 170.18 cm 84903.52 g Maxx Archer [place] - [facility] 06/28/2024 13:56:14 Date Recorded Body height Body mass index (BMI) Body weight Provider Name and Address Organization Details Last Updated DateTime 03/03/2024 170.18 cm 26.3 kg/m2 40149.52 g Maxx Archer [place] - [facility] 03/03/2024 11:45:51 Date Recorded Body height Body mass index (BMI) Body weight Provider Name and Address Organization Details Last Updated DateTime 11/01/2024 170.18 cm 26.3 kg/m2 00205.52 g Ada Easton [place] - [facility] 11/01/2024 13:34:58 Social History None recorded. Functional [...] Note [id number] SARAH FARMER MD [facility] [address] [address] 03/03/2024 11:38:42 03/03/2024 11:59:26 Sensorineural hearing loss of bilateral ears 576384505 H90.3 Sensorineu ral hearing loss in right ear 9499110870 9100 H90.A21 [id number] THOMAS MILLER MD [facility] [address] [address] 06/28/2024 13:33:51 06/28/2024 15:16:42 Sensorineural hearing loss of bilateral ears 860156480 H90.3 Cochlear p rosthesis in situ 403264089 Z96.21 [id number] THOMAS MILLER MD [facility] [address] [address] 11/01/2024 13:29:03 11/01/2024 14:00:42 Sensorineural hearing loss of bilateral ears 783070440 H90.3 Cochlear p rosthesis in situ 784330016 Z96.21 [id number] FEMI BELL MD [facility] [address] [facility] [place] [address] 12/02/2024 14:40:44 12/02/2024 15:09:17 Postoperative visit 651711217 Z48.89 Sensorineu ral hearing loss of bilateral ears 147040386 H90.3 Health Concerns Section Related Observation LastModified by Organization Detai ls LastModified Time None Recorded Concern Status LastModified by Organization Details LastModified Time None Recorded Advance Directives Directive None Recorded Payers Encounter Date Sequence Insurance Name Policy Number Policy Durbin Covered Member ID Durbin Member ID Guarantor Name 03/03/2024 1 [employer] [facility] S[employer]IOR [employer] (MEDICARE SUPPLEMENT) Tasha A Emilia [id number] Tasha Mckayla Emilia 06/28/2024 1 [employer] - SENIOR [employer] (MEDICARE REPLACEMENT HMO) Tasha Torres Emilia [id number] Tasha Torres Emilia 11/01/2024 1 [employer] (MEDICARE REPLACEMENT HMO) Tasha Torres Emilia [id number] Tasha Torres Emilia 12/02/2024 1 [employer] (MEDICARE REPLACEMENT HMO) Tasha Torres Emilia [id number] Tasha Torres Emilia Notes Date Note Type Note Provider Name and Address Organization Details Recorded Time 03/03/2024 text/html 73 year old femmckayla fisher presents with daughter for postoperative evaluation following implantation of right CI 02/26/[address] Miller. Reports she has been exceptionally dizzy and nauseated, though this is slowly improving. The area is quite tender. She had blood coming from the right ear yesterday after using a Q-tip. Scheduled for device mapping next week. SARAH FARMER MD [address] [place] [address], [address], [facility] - [facility] 03/03/2024 16:57:19 06/28/2024 text/html Status post plac ement of right cochlear implant on 02/26/2024. She had some dizziness postoperatively and used some Zofran. Otherwise uneventful postoperative course. She has been following up at the [facility]plant Program for implant mapping. Able to use the phone with relative ease. Going to physical therapy to help with her residual balance disturbance. THOMAS MILLER MD 100 [facility],[address], [address], [facility] 06/28/2024 14:58:25 11/01/2024 text/html Status post plac ement of right cochlear implant on 02/26/2024. She had some dizziness postoperatively and used some Zofran. Otherwise uneventful postoperative course. She has been following up at the [facility] Cochlear Implant Program for implant mapping. [...] accompanied by her daughter. THOMAS MILLER MD 100 [facility],[address], [address], [facility] 11/01/2024 14:00:19 12/02/2024 text/html 74yo female pres ents following cochlear implant on 11/[address] Miller. Patient is doing well post-operatively. Dull ear ache is managed with OTC analgesics. Denies dizziness, taste disturbance, numbness, facial asymmetry, hearing loss, or otorrhea. FEMI BELL MD [address] [facility],[address] [address], [place], [address], [facility] 12/04/2024 08:11:18 OBGyn Episode No OBEpisode recorded.
--- OUTSIDE RECORDS SUMMARY | 2024-12-21 07:27 | XMS_ITS | Patient Health Record ---
Author Organization [facility] Address [address] [place] [address] Care Team Providers Care Child Care Coordinator Name Role Phone Miguelina Soliman Primary Care Provider Andrei Clay Jr Unavailable Allergies Allergen (clinical drug ingredient) Drug/Non Drug Allergy documented on EMR Reaction Allergy Type Onset Date Status Substance with 0-jxeeohh-3-methylgluta ryl-coenzyme A reductase inhibitor mechanism of action [...] Problem Status W/U Status Risk Notes Problem [id number] Colon cancer screening (Z12.11) Active confirmed Problem [id number] Encounter for current fdc use of antiplatelet drug (Z79.02) Active confirmed Plan Of Treatment Future Test Test Name Order Date COLONOSCOPY 04/08/2018 Next Appt Details Provider Name:Andrei bui , 02/08/2025 10:20:00 AM, [address] [place] [address], [facility], [place], [address], Insurance Providers Payer Name Payer Address Payer Phone Subscriber Number Group Number Insured Name Patient Relationship to Insured Coverage Start Date Coverage End Date [employer] [address] [place] [phone] [id number] SIRISHA VERDIN Self - patient is the insured Medical (General) History Medical History History ICD Code peripheral arterial disease rheumatoid arthritis hypertension elevated cholesterol depression Surgical History Surgery Date(Month/Year) benign breast surgeries femoral artery with stent placements(tot al of 9) thumb surgery cataract-lens implants----both eyes
--- NOTE | 2024-12-21 07:34 | MHC.OFFVIS ---
Vital Signs 12/21/24 07:39 Height 5 ft 7 in Weight 193 lb 1.999 oz BMI 30.2 BP 130/82 Blood Pressure Location Lt brachial Position Sitting Pulse 89 Pulse Source Pulse Oximeter Pulse Oximetry (%) 96 Oxygen Delivery Method Room Air Intake Visit Reasons: Osteoporosis follow up and prolia inj Allergies Tcwbklw-XTL-VuY Reductase Inhibitor [HBVALSM-HTG-SDO REDUCTASE INHIBITOR] Allergy (Severe, Verified 12/21/24 07:35) ANAPHYLACTIC apixaban [From Eliquis] Allergy (Intermediate, Verified 12/21/24 07:35) Vomiting Medication List - Last Reconciled 12/21/24 by Teresa Cleaning MD Actemra ACTPen (tocilizumab) 162 mg (0.9 mL) subcut Q2W NS albuterol sulfate 90 mcg/actuation 2 inhalations inhalation Q6H PRN 30 days bupropion HCl XL (Wellbutrin XL) 150 mg PO DAILY 30 days carvedilol 6.25 mg PO BID cholecalciferol (vitamin D3) 50 mcg PO DAILY denosumab (Prolia) 60 mg subcut [id number] levalbuterol HCl 1.25 mg (3 mL) inhalation BID 90 days lidocaine 5% 1 patch topical DAILY PRN 30 days lisinopril 15 mg PO BID rivaroxaban (Xarelto) 20 mg PO QPM tramadol 50 mg PO Q6H PRN 30 days HPI Comments Details: Patient is a 74-year-old female with labile hypertension, COPD, paroxysmal AFib, MGUS, sarcoidosis/seronegative RA and osteoporosis here today for follow up Interval History: Patient last seen 09/05/[address] Bello. At that time she came to [facility] with her daughter and was doing well on Actemra every other week. She was doing well overall and had no complaints. Doing PT for bilateral greater trochanteric bursitis with improvement Today, She is with her daughter and doing well No falls or fractures No flares of disease Rheumatologic History: Seronegative rheumatoid arthritis/sarcoidosis Hydroxychloroquine for 18 months failed Humira -dates unknown failed Enbrel 03/2020-06/2021-discontinued due to active synovitis. Methotrexate- 03/2020-01/2022- increased LFTs- resolved once stopped. Kevzara- 07/11-03/2022- low absolute neutrophils Orencia-03/2022-present effective. DC 08/2023 due to septic shock 10/23 PNA Actemra 11/2023 effective. PDN tapered off 05/2024 Osteoporosis Alendronate-could not tolerate due to GI upset Prolia- March 2019- present Sarcoidosis Biopsy proven skin lesions. Following with Pulmonary. Gets regular CT scans every 6 months for pulmonary nodules. Recent CT chest showed few small nodules, patient however is not symptomatic, Humberto level increases while off DMARDs. Current Rheumatology Medication(s): Actemra 162 mg every 2 weeks sc Denosumab 60 mg sc every 6 months [facility] Medical History (Updated 12/21/24 @ 08:19 by Teresa Cleaning MD) Bronchiolitis BRE (acute kidney injury) Rheumatoid arthritis involving multiple joints COPD (chronic obstructive pulmonary disease) Atrial fibrillation with rapid ventricular response Blood poisoning due to Streptococcus pneumoniae bacteria Septic shock due to streptococcal infection Acute hypoxic respiratory failure Type 2 KS (myocardial infarction) Metabolic acidosis Hyperphosphatemia Septic shock Uremic encephalopathy Ischemic hepatitis Hypoxia Pancreatitis, acute Hypomagnesemia Sarcoidosis Streptococcal pneumonia Xanthelasma Pulmonary nodules Mild recurrent major depression Emphysema lung Hip bursitis Depression Essential hypertension Surgical History Cochlear implant in place Xanthelasma of lower eyelid History of coronary angiogram Hx of left knee surgery H/O cataract removal with insertion of prosthetic lens H/O laminectomy Carpal tunnel syndrome on both sides Family History Mother Leukemia Father Diabetes Heart disease Brother Heart disease Other No family history of cancer Social History Household Members: Spouse Housing: House Are you a primary hospice patient care secretary to a significant other at home: Yes (Son) Do you presently have visiting nurse or other home services: No Unable to assess alcohol history related to: Unknown Alcohol intake: current Alcohol intake frequency: holidays/special occasions only Alcohol type: wine Comment: bilateral wrist restraints--intubated Patient Tobacco Use Status: Former Tobacco user Tobacco use type: Cigarette e-Cigarette/Vaping Use: Never Used Second Hand Smoke Exposure: No Substance Use Type: Marijuana service: No Current occupational status: retired Cognitive needs: Yes (wheelchair, walker,) Hearing needs: No Vision needs: Yes (reading glasses) Review of Systems Const Details: Review of Systems Constitutional: Denies fever, chills, weight loss ENT: Denies vision changes, eye pain or eye redness, dental caries, dry mouth GI: Denies nausea, vomiting, diarrhea, abdominal pain, change in BM Pulm: Denies SOB, CABRAL, hemoptysis, wheezing Cards: Denies chest pain, palpitations Skin: Denies Raynaud's, rash, nail changes, photosensitivity, MANAGER PRODUCT SUPPORT: Denies headaches, weakness, paresthesias, recurrent falls MSK: as per HPI All other systems reviewed and are unremarkable except noted above Physical Exam Vital Signs: Last Vital Signs Pulse 89 12/21/24 07:39 BP 130/82 12/21/24 07:39 Pulse Ox 96 12/21/24 07:39 Oxygen Delivery Method Room Air 12/21/24 07:39 BMI result Body Mass Index 30.2 Vital signs reviewed Physical Examination CONSTITUITIONAL Patient alert and cooperative. Well appearing and in no apparent painful distress HEENT Conjunctiva and sclera clear. ?Pupils equal round and reactive to light. ?No lymphadenopathy. ?Has bilateral cochlear implants CHEST/RESPIRATORY SYSTEM Normal respiratory effort and able to speak in complete sentences. ?Clear to auscultation bilaterally. ?No crackles, rales, rhonchi, wheezes heard. CARDIAC SYSTEM Regular rate and rhythm. ?S1 and S2 heard no murmurs. ?Radial pulses intact bilaterally MSK Hands: ?Good warehouse general laborer strength bilaterally. No deformities noted. ?No synovitis noted to the MCPs, PIPs or DIPs. ?Herbedens nodes noted. Swelling notes to the right third digit. Wrists: ?Full range of motion at the wrists without pain. ?No tenderness to palpation or synovitis noted to the wrists. Elbows: Full range of motion without pain. No tenderness, weakness, swelling, increased warmth or erythema. Shoulders: Full range of motion without pain. No tenderness, weakness, swelling, increased warmth or erythema. Hips: Full range of motion without pain. Hip bursa: No tenderness to palpation Knees: ?Full range of motion. ?No tenderness, swelling, increased warmth or erythema.?No effusion or crepitations Ankles: Full range of motion. ?No tenderness, swelling, increased warmth or erythema.? Feet: ?Negative squeeze test. ?No tenderness to palpation or swelling of the MTPs. Tender points:?No tenderness to palpation of the bilateral trapezius, supraspinatus, greater trochanters, anterior costochondral junctions, bilateral gluteal areas, bilateral suboccipital muscle insertions SKIN Skin intact without rashes. Results Reviewed Results Reviewed: Laboratory Tests 10/13/24 12/02/24 08:27 11:16 WBC 4.2 L RBC 4.43 Hgb 13.4 Hct 40.4 Plt Count 229 ESR 6 Sodium 135 Potassium 4.1 Chloride 104 Carbon Dioxide 24 BUN 16 Creatinine 0.71 Total Bilirubin 0.4 AST 40 H 46 H ALT 33 H 29 C-Reactive Protein < 0.10 Total Protein 7.9 25-OH Vitamin D Total 68.9 Laboratory Tests 12/02/24 11:16 Hepatitis A IgM Ab Nonreactive Hep Bs Antigen Negative Hep Bs Antibody NONREACTIVE Hep B Core Total Ab Nonreactive Hepatitis C Ab (EIA) Nonreactive TB Test (T-Spot) Com Negative DEXA 10/2024 FINDINGS: The bone mineral density of the lumbar spine is 1.486 with a T-score of 2.5, and a Z-score of 3.7. This represents a BMD change of 8.9% compared to the prior exam. This is statistically significant. The bone mineral density of the left total hip is 0.899 with a T-score of -0.9, and a Z-score of 0.4. This represents BMD change of 0.2% compared to the prior exam. This is not statistically significant. The bone mineral density of the left femoral neck is 0.883 with a T-score of -1.1, and a Z-score of 0.4. This represents BMD change of 0.2% compared to the prior exam. Assessment & Plan Assessment & Plan (1) Rheumatoid arthritis involving multiple joints: Comment: Humira -dates unknown Enbrel 03/2020-06/2021-discontinued due to active synovitis. Methotrexate- 03/2020-01/2022- increased LFTs- resolved once stopped. Kevzara- 07/11-03/2022- low absolute neutrophils Orencia-03/2022-present Code(s): M06.9 - Rheumatoid arthritis, unspecified Category: Medical Plan: #Sarcoidosis/Seronegative inflammatory arthritis Patient is a 74-year-old female with sarcoidosis complicated by seronegative inflammatory arthritis and pulmonary nodules here today for follow up. Overall doing well on Actemra. Has chronic swelling to her right 3rd PIP. Has had injections for this in the past with minimal to no relief. Overall patient is doing well and tolerating her Actemra. Plan - Actemra 162mg every 2 weeks SC - RTC 6 months - Labs before visit: CBC, CMP, ESR, CRP, hepatitis panel, T spot, lipid panel, HUMBERTO level (2) Osteoporosis: Comment: DEXA 10/2024: AP Spine 2.5, Left femur neck -1.1, Left femur total -0.9 DEXA 10/2022: AP Spine 1.5, Left femur neck -1.1, Left femur total -0.9 DEXA 10/2020: AP Spine 0.8, Left femur neck -1.2, Left femur total -0.9 Alendronate-could not tolerate due to GI upset Prolia- March 2019- present Code(s): M81.0 - Age-related osteoporosis without current pathological fracture Category: Medical Qualifiers: Osteoporosis type: age-related Presence of current pathological fracture: without current pathological fracture Qualified Code(s): M81.0 - Age-related osteoporosis without current pathological fracture Plan: #Osteoporosis Patient with osteoporosis without falls or fractures. Doing well and tolerating her Prolia. Bone density done October shows improvement in AP spine bone density. Plan - s/p prolia today - RTC 6 months - Vitamin D with next lab draw (3) Encounter for monitoring tocilizumab therapy: Code(s): Z51.81 - Encounter for therapeutic drug level monitoring; Z79.620 - intermediate (current) use of immunosuppressive biologic Plan: #Long-term Use of Tocilizumab Discussed the risks and benefits of tocilizumab with the management of this patient's rheumatic condition. ? Benefits include decreased pain, improved mortality, improved quality of life Risks include LFT abnormalities, elevated triglycerides, GI perforations Contraindicated in a patient with history of diverticulitis Monitoring: ?CBC, CMP, triglycerides (4) Encounter for monitoring denosumab therapy: Code(s): Z51.81 - Encounter for therapeutic drug level monitoring; Z79.620 - hospice clinical marketer (current) use of immunosuppressive biologic Plan: #Long-term use of Denosumab Discussed with patient the risks and benefits of denosumab (Prolia) for the management of their osteoporosis Benefits include improved bone density, decreased fracture risk Risks include rapid bone loss if denosumab stopped, osteonecrosis of the jaw especially in patients with poor oral hygiene/diabetes/use of glucocorticoids/age greater than 65 years, atypical femoral fractures, injection site reactions. Mild increased risk of infections due to RANKL on T helper cells, increased risk of hypocalcemia especially in CKD patients Keep vitamin-D at least 35 ng/mL Advised to delay non emergent dental procedures to toward the end of the 6 month cycle and if they plan to stop denosumab would need to continue antiresorptive to maintain the effects of denosumabe Plan I spent 32 minutes reviewing the record and labs, taking a history, examining the patient, discussing the treatment plan, ordering diagnostic work up and documenting in the medical record Orders: Orders Comprehensive Met. Panel 6 Months E55.9 - Vitamin D deficiency, unspecified, M06.9 - Rheumatoid arthritis, unspecified Hepatitis A,B,C Profile 6 Months E55.9 - Vitamin D deficiency, unspecified, M06.9 - Rheumatoid arthritis, unspecified Angiotensin Converting Enzyme 6 Months E55.9 - Vitamin D deficiency, unspecified, M06.9 - Rheumatoid arthritis, unspecified Complete Blood Count Auto Diff 6 Months E55.9 - Vitamin D deficiency, unspecified, M06.9 - Rheumatoid arthritis, unspecified C Reactive Protein 6 Months E55.9 - Vitamin D deficiency, unspecified, M06.9 - Rheumatoid arthritis, unspecified Erythrocyte Sedimentation Rate 6 Months E55.9 - Vitamin D deficiency, unspecified, M06.9 - Rheumatoid arthritis, unspecified T Spot TB 6 Months E55.9 - Vitamin D deficiency, unspecified, M06.9 - Rheumatoid arthritis, unspecified Lipid Panel 6 Months E55.9 - Vitamin D deficiency, unspecified, M06.9 - Rheumatoid arthritis, unspecified Vitamin D 25-OH (D2 and D3) 6 Months E55.9 - Vitamin D deficiency, unspecified, M06.9 - Rheumatoid arthritis, unspecified Medications: Refilled Actemra ACTPen (tocilizumab) 162 mg (0.9 mL) subcut Q2W 1.8 mL 4RF NS M06.9 - Rheumatoid arthritis, unspecified Actemra ACTPen (tocilizumab) 162 mg (0.9 mL) subcut Q2W 1.8 mL 5RF NS M06.9 - Rheumatoid arthritis, unspecified Coding Level of Care Code Est Pt Level 4 (72779) Complex EM visit Add On G2211 Diagnoses Rheumatoid arthritis involving multiple joints M06.9 Age-related osteoporosis without current pathological fracture M81.0 Osteoporosis type: age-related Presence of current pathological fracture: without current pathological fracture Encounter for monitoring tocilizumab therapy Z51.81; Z79.620 Encounter for monitoring denosumab therapy Z51.81; Z79.620
[2024-12-21 07:39] VITALS: BP 130/82; PULSE 89; O2SAT 96; BMI 30.2
== END 2024-12-21 08:10 | disposition home or self-care (01) ==
LOC: HO.RHE 07:24
PROVIDERS: PCP Internal Medicine; Visit Provider Student in an Organized Health Care Education/Training Program
DX: M06.9 Rheumatoid arthritis, unspecified (principal); M81.0 Age-related osteoporosis without current pathological fracture; Z51.81 Encounter for therapeutic drug level monitoring; Z79.620 Long term (current) use of immunosuppressive biologic
CPT/HCPCS: 99214; G2211

== ENCOUNTER → 2024-12-21 07:23 | Outpatient (BNVA) | payer MEDICARE, SELFPAY | PROVIDERS: PCP Internal Medicine; Visit Provider Student in an Organized Health Care Education/Training Program | DX: M81.0 Age-related osteoporosis without current pathological fracture (principal); M06.9 Rheumatoid arthritis, unspecified; E55.9 Vitamin D deficiency, unspecified; Z51.81 Encounter for therapeutic drug level monitoring; Z79.620 Long term (current) use of immunosuppressive biologic | CPT/HCPCS: 96372; 99212; J0897 ==

== ENCOUNTER 2025-02-07 08:09 | Outpatient (AMB) | payer MEDICARE, SELFPAY ==
--- NOTE | 2025-02-07 08:18 | A.OFFPC_ITS ---
Vital Signs 02/07/25 08:19 Height 5 ft 7 in Weight 192 lb BMI 30.1 BP 144/72 H Blood Pressure Location Lt brachial Position Sitting Intake Visit Reasons: bp Intake Note: Patient here for a follow up BP Android Developer Required: No Accompanied by: Self / Same As Patient Allergies Sflzdpc-GZJ-XsH Reductase Inhibitor [BHCVJCU-UOT-YSZ REDUCTASE INHIBITOR] Allergy (Severe, Verified 02/07/25 08:39) ANAPHYLACTIC apixaban [From Eliquis] Allergy (Intermediate, Verified 02/07/25 08:39) Vomiting Medication List - Last Reconciled 02/07/25 by Miguelina Flor MD Actemra ACTPen (tocilizumab) 162 mg (0.9 mL) subcut Q2W NS albuterol sulfate 90 mcg/actuation 2 inhalations inhalation Q6H PRN 30 days bupropion HCl XL (Wellbutrin XL) 150 mg PO DAILY 30 days carvedilol 6.25 mg PO BID cholecalciferol (vitamin D3) 50 mcg PO DAILY denosumab (Prolia) 60 mg subcut [id number] levalbuterol HCl 1.25 mg (3 mL) inhalation BID 90 days lidocaine 5% 1 patch topical DAILY PRN 30 days lisinopril 15 mg PO BID rivaroxaban (Xarelto) 20 mg PO QPM tramadol 50 mg PO Q6H PRN 30 days Tobacco use date assessed: 10/03/24 Fall risk assessment: No Falls in past year Last assessed Fall Risk: 02/07/25 Dental Screening Dental Screen Date: 10/03/24 HPI HPI Comments History of Present Illness Details The patient is a 74-year-old female presenting with elevated blood pressure and hypercholesterolemia. Her blood pressure has been gradually increasing, described as borderline at present. Despite efforts at cholesterol management, her levels remain significantly elevated at 301, and she has experienced severe allergic reactions to statins, leading to acute anaphylaxis. The patient also reports adverse reactions to Eliquis. Has paroxysmal atrial fibrillation on chronic anticoagulation. She manages her depression with bupropion and treats her rheumatoid arthritis with Actemra. Her respiratory condition is complicated by sarcoidosis with lung nodules, for which she uses inhalers and a nebulizer. She recently experienced an acute episode of sciatica, managed with tramadol and heat application, though numbness lingers. Her current concerns revolve around optimizing her treatment for hypercholesterolemia and hypertension while minimizing potential side effects and adverse interactions. [facility] Medical History (Updated 02/07/25 @ 10:07 by Miguelina Flor MD) Bronchiolitis BRE (acute kidney injury) Rheumatoid arthritis involving multiple joints COPD (chronic obstructive pulmonary disease) Atrial fibrillation with rapid ventricular response Blood poisoning due to Streptococcus pneumoniae bacteria Septic shock due to streptococcal infection Acute hypoxic respiratory failure Type 2 MD (myocardial infarction) Metabolic acidosis Hyperphosphatemia Septic shock Uremic encephalopathy Ischemic hepatitis Hypoxia Pancreatitis, acute Hypomagnesemia Sarcoidosis Streptococcal pneumonia Xanthelasma Pulmonary nodules Mild recurrent major depression Emphysema lung Hip bursitis Depression Essential hypertension Surgical History Cochlear implant in place Xanthelasma of lower eyelid History of coronary angiogram Hx of left knee surgery H/O cataract removal with insertion of prosthetic lens H/O laminectomy Carpal tunnel syndrome on both sides Family History Mother Leukemia Father Diabetes Heart disease Brother Heart disease Other No family history of cancer Social History Household Members: Spouse Housing: House Are you a primary field care coordinator to a significant other at home: Yes (Son) Do you presently have visiting nurse or other home services: No Unable to assess alcohol history related to: Unknown Alcohol intake: current Alcohol intake frequency: holidays/special occasions only Alcohol type: wine Comment: bilateral wrist restraints--intubated Patient Tobacco Use Status: Former Tobacco user Tobacco use type: Cigarette e-Cigarette/Vaping Use: Never Used Second Hand Smoke Exposure: No Substance Use Type: Marijuana service: No Current occupational status: retired Cognitive needs: Yes (wheelchair, walker,) Hearing needs: No Vision needs: Yes (reading glasses) Questionnaire Thrive Questionnaire Date Thrive assessed: 09/26/24 I am a: Patient What is your living situation today?: I have a steady place to live Within the past 12 months, did the food you bought not last and you didn't have the money to get more?: Never true Within the past 12 months, did you worry whether your food would run out before you got money to buy more?: Never true Do you have trouble paying for medicines?: No Do you have trouble getting transportation to medical appointments?: No Do you have trouble paying your heating and electricity bill?: No Do you have trouble taking care of your child, family member or friend?: No Do you have trouble with day-to-day activities such as bathing, preparing meals, shopping, managing finances, etc.?: No Are you currently unemployed and looking for a job?: No Are you interested in more education?: No Please select the resources that you would like help with: None Currently or been in a relationship where the following occur: No concerns reported THRIVE Score: 0 LUPIS-7 AMB Questionnaire LUPIS-7 Date LUPIS - 7 assessed: 10/03/24 Source: Developed by Drs. Alex Segovia, Fabiola Colón, Florentin Stevens and colleagues, with an educational josselyn from [employer]. Review of Systems Const All systems reviewed & are unremarkable except as noted in HPI and below Card Denies chest pain at rest, Denies chest pain with activity, Denies edema, Denies irregular heart rhythm, Denies claudication, Denies dyspnea, Denies dyspnea on exertion, Denies orthopnea, Denies paroxysmal nocturnal dyspnea and Denies slow heart rate Resp Denies cough, Denies dyspnea and Denies dyspnea on exertion Physical exam (Primary Care) Vital Signs: Last Vital Signs BP 144/72 H 02/07/25 08:19 BMI result Body Mass Index 30.1 BMI Assessment/Plan discussion: High BMI High, discussed plan: lifestyle, weight reduction, dietary and physical activity Tobacco/Smoking Status: Tobacco use Status Tobacco use date assessed 10/03/24 02/07/25 08:25 Patient Tobacco Use Status Former Tobacco user 02/07/25 08:25 Tobacco use type Cigarette 02/07/25 08:25 e-Cigarette/Vaping Use Never Used 02/07/25 08:25 Thrive Assessment: Date of Thrive Assessment Date Thrive assessed 09/26/24 02/07/25 08:25 Currently or been in a relationship where the following occur: No concerns reported Resp Effort & Inspection: normal respiratory effort Auscultation: clear to auscultation bilaterally Cardio Jugular venous distension: no JVD Rate: regular rate Rhythm: regular rhythm Heart sounds: S1 normal heart sound present and S2 normal heart sound present Extrem General: Yes full ROM Coding Level of Care Code Est Pt Level 4 (51303) Diagnoses Rheumatoid arthritis involving multiple joints M06.9 Paroxysmal atrial fibrillation I48.0 Mild recurrent major depression F33.0 Essential hypertension I10 Pure hypercholesterolemia E78.00 Time Spent (min) 25 Assessment & Plan Assessment & Plan (1) Rheumatoid arthritis involving multiple joints: Comment: Humira -dates unknown Enbrel 03/2020-06/2021-discontinued due to active synovitis. Methotrexate- 03/2020-01/2022- increased LFTs- resolved once stopped. Kevzara- 07/11-03/2022- low absolute neutrophils Orencia-03/2022-present Code(s): M06.9 - Rheumatoid arthritis, unspecified Category: Medical (2) Paroxysmal atrial fibrillation: Code(s): I48.0 - Paroxysmal atrial fibrillation Category: Medical (3) Mild recurrent major depression: Code(s): F33.0 - Major depressive disorder, recurrent, mild Category: Medical (4) Essential hypertension: Code(s): I10 - Essential (primary) hypertension Category: Medical (5) Pure hypercholesterolemia: Code(s): E78.00 - Pure hypercholesterolemia, unspecified Category: Medical (6) Mild recurrent major depression: Code(s): F33.0 - Major depressive disorder, recurrent, mild Category: Medical Plan The patient requires a comprehensive approach to manage her blood pressure and cholesterol levels. Lisinopril dose adjustments have been considered to address her current hypertensive state. As her cholesterol remains significantly elevated at 301, we need to identify alternative treatments given her history of anaphylaxis with statins. Reevaluating the use of Zetia or similar medications i s suggested. We addressed her concerns about Eliquis-related adverse effects and have provided management strategies for her current regimen for rheumatoid arthritis and depression. For sciatica, the proposed conservative management was effective, with instructions to monitor the remaining numbness. A telehealth visit for blood pressure recheck is planned in three weeks, with a more in-depth follow-up in six months. Patient was informed and verbally consented to the use of an ambient scribe for clinic note documentation during this visit. During the visit, I explained to the patient the importance of managing her elevated blood pressure and addressing her hypercholesterolemia. Given her adverse reaction history to statins, we discussed alternative cholesterol- lowering options, including potential use of non-statin medications. I informed her of the 9.1% risk of a cardiovascular event, recommending interventions exceeding a 6% threshold per current guidelines. I reviewed the implications of adjusting her blood pressure management strategy and encouraged regular monitoring. Discussions included current medication effects and alternatives, emphasizing the importance of consistent medication usage and potential side effects. I proposed a follow-up appointment to track progress using telehealth to ease travel burden unless a physical visit becomes necessary. For sciatica and associated numbness, I suggested revisiting if symptoms persist. My advice nurtured understanding about expected outcomes and offered reassurance regarding her ability to contact me for any concerns. Orders: Orders Vitamin D 25-OH Total 6 Months E55.9 - Vitamin D deficiency, unspecified Lipid Panel 6 Months E78.5 - Hyperlipidemia, unspecified Comprehensive [place]. Panel Fast 6 Months M06.9 - Rheumatoid arthritis, unspecified Medications: New lisinopril 20 mg PO BID 180 tabs 1RF 90 days Changed From bupropion HCl XL (Wellbutrin XL) 150 mg PO DAILY 30 days 30 tabs 1RF To bupropion HCl XL (Wellbutrin XL) 150 mg PO DAILY 90 tabs 1RF 90 days Patient Instructions: - Take lisinopril twice a day as directed. - Schedule a follow-up telemedicine visit in three weeks for blood pressure check, using home blood pressure data. - Monitor any changes in numbness; report if persistent beyond one month. - Contact me if experiencing any new or worsening side effects with current medications. - Follow the planned six-month re-evaluation including labs and possible imaging studies. - Ensure nutrition and regular exercise to aid in overall health management.
--- OUTSIDE RECORDS SUMMARY | 2025-02-07 08:18 | XMS_ITS | Clinical Summary ---
Author Organization [facility] Facility Address [address] [address] Care Team Providers Care Brass And Wind Instrument Repairer Name Role Phone Miguelina Soliman MD Primary Care Provider [phone] Allergies Active Allergy Reactions Criticality Noted Date [...] Colorectal Cancer Screening: Sigmoidoscopy 1999 Influenza Vaccine (Season Ended) 2025 Pneumococcal Vaccine: 50+ Years Completed 05/26/2023, 12/08/2016 Hepatitis B Vaccine Aged Out No longe r eligible based on patient's age to complete this topic Insurance [facility] Medicare [employer] Medicare Care Teams Brass And Wind Instrument Repairer Relationship Specialty Start Date End Date Miguelina Soliman MD [address] [place] PCP - General Internal Medicine 11/19/23
--- OUTSIDE RECORDS SUMMARY | 2025-02-07 08:18 | XMS_ITS | Patient Health Record ---
Author Organization [facility] Address [address] [place] [address] Care Team Providers Care [employer] Plant Maintainer Name Role Phone Miguelina Soliman Primary Care Provider Unavailab Andrei Pereira Jr Unavailable Allergies Allergen (clinical drug ingredient) Drug/Non Drug Allergy documented on EMR Reaction Allergy Type Onset Date Status Substance with 7-xpnytjf-7-methylgluta ryl-coenzyme A reductase inhibitor mechanism of action (substance) statins (uncoded) Unknown Allergy Active Reason For Referral Referring Provider First Name Jerman Referring Provider Last Name Vitor Referred Organization [facility] Referred Provider Andrei Dale Jr Referred Address [address],[place],[address], Referred Provider Specialty Gastroentero logy General Notes Simin Vogt 2024 02:58:00 PM >requested a gene referral from Dr. Dooley' office for office visit with Dr. Dale on 02-08-25, Simin Vogt 01/11/2025 10:38:58 AM > Per [facility]. No referral required for this [place] plan. Referral Priority Routine Medications Medication SIG (Take, Route, Frequency, Duration) [...] Problem Status W/U Status Risk Notes Problem [id number] Colon cancer screening (Z12.11) Active confirmed Problem [id number] Encounter for current long-term use of antiplatelet drug (Z79.02) Active confirmed Plan Of Treatment Future Test Test Name Order Date COLONOSCOPY 04/08/2018 Next Appt Details Provider Name:Andrei bui , 02/08/2025 10:20:00 AM, [address] [place] [address], [address], [place], [address], Insurance Providers Payer Name Payer Address Payer Phone Subscriber Number Group Number Insured Name Patient Relationship to Insured Coverage Start Date Coverage End Date [employer] [address] [place] [phone] [id number] SIRISHA VERDIN Self - patient is the insured Medical (General) History Medical History History ICD Code peripheral arterial disease rheumatoid arthritis hypertension elevated cholesterol depression Surgical History Surgery Date(Month/Year) benign breast surgeries femoral artery with stent placements(tot al of 9) thumb surgery cataract-lens implants----both eyes
--- OUTSIDE RECORDS SUMMARY | 2025-02-07 08:18 | XMS_ITS | Data Portability ---
Author Organization [place] - [facility], Allergy Address [address] [address] Care Team Providers Care Harness Worker Name Role Phone MAXX DURAN Primary Care Provider Assessment Encounter Date Assessment Date Assessment LastModified by Organization Details LastModified Time 06/28/2024 06/28/2024 Right ear has healed well following placement of cochlear implant. She is extremely pleased with her progress with the implant so far. She will continue to follow-up with the [facility] Cochlear Implant Program for cochlear implant [...] scheduling process to implant the left ear. [email or web address] Not available 06/28/2024 14:57:37 11/01/2024 11/01/2024 The [...] be implanting the left ear with the [employer] CI 632implant. After full discussion, the patient would like to proceed with surgery. I have provided patient with the contact information for my organic chemistry teacher. We will begin the scheduling process and see the patient back at the time of surgery. Patient will not require medical clearance from their primary care provider preoperatively. Patient already has an appointment with Leslie Agosto with [facility] to set up her implant order. [email or web address] Not available 11/01/2024 13:53:38 12/02/2024 12/02/2024 74yo [...] and with Dr. Miller in 3 months. [email or web address] Not available 12/02/2024 16:36:37 Plan of Treatment Reminders Order Date Submit Date Provider Last Modified By Organization Details Last Modified Time Details Appointments Post Op 2024 11:00A M THOMAS MILLER MD Not available Not available Not available Lab None recorded. Referral None recorded. Procedures None recorded. Surgeries cochlear device implantat ion (SURG) 2024 025 [email or web address] Not available 11/01/2024 14:29:14 Imaging None recorded. Medication Orders None recorded. Patient TargetsNo targets recorded. Patient InstructionsNo instructions recorded. Reason for Referral None Reported. Results Created Date Observation Date Name Description Value Unit Range Abnormal Flag Note LastModifiedBy Organization Detail LastModifiedTime 02/29/20 24 02/26/2024 fluor oscop y evalu ation (PROC ) No observ ation record ed. [email or web address] [facility] [address], [place], [address], 03/07/2024 15:21:37 05/11/20 24 10/08/2023 imagi ng/di agnos tic resul t No observ ation record ed. [email or web address] Not Available 00:11:43 05/11/20 24 11/25/2023 cochl ear impla nt deter minat ion form* No observ ation record ed. [email or web address] Not Available 2023 14:56:10 05/11/20 24 09/05/2023 [...] (PROC ) No observ ation record ed. [email or web address] [facility] [address] [facility], [place], [address], 11/25/2024 16:40:30 Result Notes None recorded. Problems Name Problem SNOMED Code Status Onset Date Resolution Date Notes Provider Name and Address Organization Details Recorded Time Sensorine ural hearing loss of bilateral ears 288296662 Active 2023 Sensorineu ral hearing loss, bilateral; Note: Date Diagnosed: 10/08/2023 4:56 PM (H90.3) Not Available [employer] 02:33:39 Postopera tive nausea and vomiting 3699018 Active 2023 GISSELL RODRÍGUEZ MD [address] [place] [address], [facility] [place], [address] , [facility] 04:28:19 Problem Notes None recorded. Procedures Surgical History Date Name Laterality Status Provider Name and Address Organization Details Recorded Time 11/26/19 25 COCHLEAR DEVICE IMPLANTATION (SURG) completed Rosalio Marcelino [facility] 11/25/2024 15:36:38 11/26/19 25 COCHLEAR DEVICE IMPLANTATION (SURG) completed Rosalio Marcelino [facility] 11/28/2024 13:17:48 Imaging Results Imaging Date Name Status LastModified by Organization Details LastModified Time 02/26/2024 fluoroscopy evaluation (PROC) completed [email or web address] [facility] [address], [address], 03/07/2024 15:21:37 10/08/2023 imaging/diagnosti c result completed Information not available 05/11/2024 00:11:43 11/25/2023 cochlear implant determination form* completed [email or web address] Information not available 06/28/2024 14:56:10 09/05/2023 imaging/diagnosti c result completed Information not available 05/11/2024 00:12:53 09/06/2023 imaging/diagnosti c result completed Information not available 05/11/2024 00:12:54 09/10/2023 imaging/diagnosti c result completed Information not available 05/11/2024 00:12:56 07/27/2024 audiogram completed [email or web address] Information n ot available 08/11/2024 14:06:39 11/25/2024 fluoroscopy (PROC) completed [email or web address] [facility] [address] [place], [address], 11/25/2024 16:40:30 Procedure Notes None recorded. Medical Equipment Implant [employer] Issuing Agency Serial Number Lot Number Status Provider Name and Address Organization Details Recorded Time Cochlear implant FDA [id number] Y THOMAS MILLER MD [address] [address], [facility] [place], [address] , [place] - [facility] 4 09:14:31 Cochlear implant FDA [id number] Y THOMAS MILLER MD [address] [place] [address], [place], [address] , [place] - [facility] 5 09:37:19 Allergies Allergen ID Allergen Name Allergen Category Reaction Reaction Severity Criticality Documentation Date Start Date Code Code System Note Provider Name and Address Organization Details Recorded Time 33471 Product containin g 3-hydroxy -3-methyl glutaryl- coenzyme A reductase inhibitor (product) medicatio n other Not available Not available 02/02/2024 28003 009 SNOMED React ion: Unkno wn; Not Available [facility] 4 00:59:28 42098 Eliquis medicatio n other Not available Not available 02/02/2024 94061 36 RxNorm React ion: Unkno wn; Not Available [facility] 4 00:59:28 Medications Name Sig Start Date [...] by mouth 02/25 completed Medicati on ID: [id number] D uration Value: 14 Brand Name: predniso ne Send Method: E-Prescr ibed Sub s Allowed: subs OK Speci al Instruct ion: Take 6 tabs PO QD X 9 days, then 5 tabs PO QD day 10, 4 tabs day 11, 3 tabs day 12, 2 tabs day 13 and 1 tab day 14 Medic ationGen ericName : predniso ne Medic ation ID: [id number] D uration Value: 14 Brand Name: predniso [...] mg tablet 06/28 completed Medicati on ID: [id number] B rand Name: carvedil ol Send Method: E-Prescr ibed Sub s Allowed: subs OK Medic ationGen ericName : carvedil ol Not Available Not Available Not Available prednison e 5 mg tablet TAKE 1 TABLET BY MOUTH EVERY DAY 06/28 completed Not Available Not Available Not Available clopidogr el 75 mg tablet 06/28 completed Medicati on ID: [id number] B rand Name: clopidog rel Send Method: E-Prescr ibed Sub s Allowed: subs OK Medic ationGen ericName : clopidog rel Not Available Not Available Not Available amlodipin e 5 mg tablet 06/28 completed Medicati on ID: [id number] B rand Name: amlodipi ne Send Method: [...] tion aerosol inhaler active Medicati on ID: [id number] B rand Name: albutero l sulfate Send Method: E-Prescr ibed Sub s Allowed: subs OK Medic ationGen ericName : albutero l sulfate Not Available Not Available Not Available lisinopri l 40 mg tablet 06/28 completed Medicati on ID: [id number] B rand Name: lisinopr il Send Method: [...] mg capsule 06/28 completed Medicati on ID: [id number] B rand Name: nitrofur antoin monohyd/ m-cryst [...] Updated DateTime 12/02/2024 170.18 cm 29.8 kg/m2 21624.55 g Angeles Deng [place] - [facility] 12/02/2024 14:48:13 Date Recorded Body height Body weight Provider Name and Address Organization Details Last Updated DateTime 06/28/2024 170.18 cm 48477.52 g Maxx Archer [place] [facility] 06/28/2024 13:56:14 Date Recorded Body height Body mass index (BMI) Body weight Provider Name and Address Organization Details Last Updated DateTime 03/03/2024 170.18 cm 26.3 kg/m2 60929.52 g Maxx Archer [place] [facility] 03/03/2024 11:45:51 Date Recorded Body height Body mass index (BMI) Body weight Provider Name and Address Organization Details Last Updated DateTime 11/01/2024 170.18 cm 26.3 kg/m2 09904.52 g Ada Easton [place] [facility] 11/01/2024 13:34:58 Social History None recorded. Functional Status None recorded. Mental Status None recorded. Family History Nothing Reported. Medical History No medical history recorded. Gynecological HistoryNo gynecological history recorded. Obstetrics History GPAL:G 0 P 0 0 0 0 Past Encounters Encounter ID Performer Location Encounter Start Date Encounter Closed Date Diagnosis/Indication Diagnosis SNOMED-CT Code Diagnosis ICD10 Code Diagnosis Note [id number] KERI THOMPSON PA-C [facility] [address] [address] 03/03/2024 11:38:42 03/03/2024 11:59:26 Sensorineural hearing loss of bilateral ears 860747768 H90.3 Sensorineu ral hearing loss in right ear 9477210917 9100 H90.A21 [id number] THOMAS MILLER MD [facility] [address] [address] 06/28/2024 13:33:51 06/28/2024 15:16:42 Sensorineural hearing loss of bilateral ears 383043808 H90.3 Cochlear p rosthesis in situ 136115953 Z96.21 [id number] THOMAS MILLER MD [facility] [address] [place] [address] 11/01/2024 13:29:03 11/01/2024 14:00:42 Sensorineural hearing loss of bilateral ears 130003135 H90.3 Cochlear p rosthesis in situ 482250741 Z96.21 [id number] SANTO REILLY PA-C [facility] [address] [place] [address] 12/02/2024 14:40:44 12/02/2024 15:09:17 Postoperative visit 332779328 Z48.89 Sensorineu ral hearing loss of bilateral ears 979040114 H90.3 Health Concerns Section Related Observation LastModified by Organization Detai ls LastModified Time None Recorded Concern Status LastModified by Organization Details LastModified Time None Recorded Advance Directives Directive None Recorded Payers Insurance Date Sequence Insurance Name Policy Number Policy Durbin Covered Member ID Durbin Member ID Guarantor Name 05/13/2024 1 [facility] PLAN (MEDICARE SUPPLEMENT) Tasha Torres Emilia [id number] Tasha Torres Meilia 12/02/2024 1 [facility] PLAN (MEDICARE REPLACEMENT HMO) Tasha Torres Emilia [id number] Tasha Torres Emilia Notes Date Note Type [...] device mapping next week. SARAH FARMER MD [address] [address], [place], [address], [facility] - [facility] 03/03/2024 16:57:19 06/28/2024 text/html Status post plac ement of right cochlear implant on 02/26/2024. She had some dizziness postoperatively and used some Zofran. Otherwise uneventful postoperative course. She has been following up at the [facility]ar [facility]plant [facility] for implant mapping. Able to use the phone with relative ease. Going to physical therapy to help with her residual balance disturbance. THOMAS MILLER MD [address] [facility],[address], [address], [facility] 06/28/2024 14:58:25 11/01/2024 text/html Status post plac ement of right cochlear implant on 02/26/2024. She had some dizziness postoperatively and used some Zofran. Otherwise uneventful postoperative course. She has been following up at the [facility] Cochlear Implant Program for implant mapping. [...] by her daughter. THOMAS MILLER MD [address] [facility],[address], [address], [facility] 11/01/2024 14:00:19 12/02/2024 text/html 74yo female pres ents following cochlear implant on 11/[address] Miller. Patient is doing well post-operatively. Dull ear ache is managed with OTC analgesics. Denies dizziness, taste disturbance, numbness, facial asymmetry, hearing loss, or otorrhea. FEMI BELL MD [address] [facility],[address] [address], [place], [address], [facility] 12/04/2024 08:11:18 OBGyn Episode No OBEpisode recorded.
[2025-02-07 08:19] VITALS: BP 144/72; BMI 30.1
== END 2025-02-07 08:59 | disposition home or self-care (01) ==
LOC: HO.HMCH 08:10
PROVIDERS: PCP Internal Medicine; Visit Provider Internal Medicine
DX: M06.9 Rheumatoid arthritis, unspecified (principal); I48.0 Paroxysmal atrial fibrillation; F33.0 Major depressive disorder, recurrent, mild; I10 Essential (primary) hypertension; E78.00 Pure hypercholesterolemia, unspecified

== ENCOUNTER → 2025-02-07 08:09 | Outpatient (BNVA) | payer MEDICARE, SELFPAY | PROVIDERS: PCP Internal Medicine; Visit Provider Internal Medicine | DX: I10 Essential (primary) hypertension (principal); E78.00 Pure hypercholesterolemia, unspecified; M06.9 Rheumatoid arthritis, unspecified; I48.0 Paroxysmal atrial fibrillation; F33.0 Major depressive disorder, recurrent, mild; Z79.01 Long term (current) use of anticoagulants; Z79.899 Other long term (current) drug therapy | CPT/HCPCS: 99212 ==

== ENCOUNTER 2025-03-02 09:23 | Outpatient (AMB) | payer MEDICARE, SELFPAY ==
[2025-03-02 09:35] VITALS: BP 128/68; PULSE 72; O2SAT 94; BMI 30.2
--- NOTE | 2025-03-02 09:35 | A.OFFVIS_ITS ---
Vital Signs 03/02/25 09:35 Height 5 ft 7 in Weight 192 lb 14.472 oz BMI 30.2 BP 128/68 Blood Pressure Location Lt brachial Position Sitting Pulse 72 Pulse Source Pulse Oximeter Pulse Oximetry (%) 94 Oxygen Delivery Method Room Air Intake Visit Reasons: COPD Emerging [employer] Executive Required: No Allergies Dzxyzox-SJF-EjR Reductase Inhibitor [[id number]-DZA-BZL REDUCTASE INHIBITOR] Allergy (Severe, Verified 03/02/25 09:39) ANAPHYLACTIC apixaban [From Eliquis] Allergy (Intermediate, Verified 03/02/25 09:39) Vomiting HPI Comments Details: Patient is a 74 y/o woman with a history of seronegative rheumatoid arthritis followed closely by Rheumatology in addition to history of sarcoidosis and pulmonary nodules. Overall she is doing very well on methotrexate 4 tablets a week and she was initially on 5 mg of prednisone. Since she last saw the information technology consultant the recommendation was to drop down the prednisone to 4 mg. Even though her sedimentation rate was still elevated at 40. She did have a recent CT scan demonstrating stable pulmonary nodules in addition to some mild degree of emphysema. The patient is aware of this. At this point having stable pulmonary nodules the patient does need to have yearly follow-up at this time. She did have her eyes checked in appears to be stable and her lesion her face that is likely from her sarcoidosis also seems to be decreasing in size. Overall she is doing very well she is staying active and the conditions are not impacting her quality of life. ? 06/17/2022 the patient is here for a pulmonary follow-up visit. She is struggling with her arthritis. She is working on different agents to try to control her seronegative rheumatoid arthritis. The patient also has underlying sarcoidosis. Her breathing has been stable. Although she is going to the allergy season and she needs to have a rescue inhaler available. The patient continues on a small dose of prednisone. She was supposed to undergo a CT scan of the chest to follow-up pulmonary nodules. But, the patient was too busy and forgets to go to her appointment. The patient stands with following nodules that can potentially grow. At this point will have her go blood work to assess her and phlegm a carlos levels and also sarcoid levels. If there is any concerning will go ahead and request a CT scan now. Otherwise patient would like to wait until next summer to further evaluate the pulmonary nodules. Will plan to follow-up with her after her CT scan in a year's time, unless her blood work 05/26/2023 the patient is here for a pulmonary follow-up visit. The patient overall has been doing better. She has been on a better regimen for her arthritis. She is responding well to the Orencia. She continues also to be on 10 mg of prednisone. She is working slowly to decrease that. As far as the sarcoidosis the patient does have regular follow-up sore pulmonary nodules. Her last CT scan was just done couple weeks ago. Appears that she does have some slight new nodules but very minimal amount. The other nodules are stable. Therefore, based on the fact that she does have some new nodules will plan to follow-up with a CT scan in a year's time. She does have a rescue inhaler that she has not required. Overall the patient is doing well. I am hopeful that she can cut down the prednisone. 11/13/2023 the patient is here for hospital follow-up visit. The patient had a very significant hospitalization back in late July when she was admitted with acute respiratory failure and septic shock. The patient had a CT scan of the chest which I personally. Initially demonstrating the beginnings of a right lower lobe pneumonia then subsequent CT scan that she had during hospital stay demonstrated a more lobar consolidation. Her blood cultures were positive for streptococcal pneumonia. The patient was treated appropriately. She did have a prolonged ICU stay in requiring a prolonged period of intubation and vasopressor therapy. The patient now is much better. Although, she is significantly weak and she also lost her hearing. We able to communicate through a dictation device. She is working with physical therapy at home. 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 The patient will benefit from pulmonary rehabilitation when she completes [facility]. She will need to have pulmonary function studies and then was start pulmonary rehabilitation. In the meantime she continues use her respiratory therapy with good effect. Will go ahead and request blood work in view of the fact that she did get vaccinated for pneumococcal pneumonia just a couple months before she ended up with pneumococcal pneumonia. Therefore will give another vaccination and also check the blood work. 05/26/2024 the patient is here for a pulmonary follow-up visit. Overall the patient has been recovering after her very serious hospitalization. She also has been following closely Rheumatology. Seems like her biologic therapy for her connective tissue disease is helping her both RA and also treating her sarcoid. She does have a rescue inhaler but typically does not use it often. Typically less than 2 times a week. In addition to that the patient did have a CT scan of the chest which I personally reviewed with her. the patient appears to have a right-sided pulmonary nodule measuring more than a cm in the right hemithorax. In addition to that worsening tree-in-bud and bronchiolitis primarily on the left upper lobe in also lingula. This suggested smoldering infection. The patient is immunocompromised because of her immunosuppression due to her connective tissue disease Treatment. Therefore will have her undergo sputum sampling to see if this smoldering infection such as non tuberculosis mycobacterial infection. She has already had a negative TB test. If the CT scan is no better in 3 months or if his worsen then we can talk about bronchoscopy specially if we have not been able to adequately collect good sputum samples. 09/09/2024 the patient is here for a pulmonary follow-up visit. Overall she is doing very well. She is exercising regularly. Her breathing is that limiting her activity. Denies any significant chest congestion. She did get the A capella valve but we did talk about using it more regularly. In addition to that she did have a CT scan of the chest that we personally reviewed. It appears that the tree-in-bud and bronchiolitis still about the same as it was before. Has not gotten worse which is reassuring. Although still there. Will try to increase CPT with nebulizer therapy as well to try to help her clear any mucous plugs from the bronchioles with the help of the nebulizer along with the Acapella valve. The patient is to do that once or twice a day. Will plan to follow-up in 6 months. Will plan to repeat the CT scan in 6 months if the area still there. If she does become symptomatic can always consider bronchoscopy for deep cultures. Although in her case right now because of her history of C diff colitis would be very cautious and also conscientious not to give him any medications that could worsen her risk of developing severe C diff again. 03/02/2025 the patient is here for a pulmonary follow-up visit. Overall she is doing well. He continues her CPT. She is tolerating it well. Able to clear gets out of her lungs. Exercising regularly. The patient is scheduled for CAT scan but she has not had as of yet. The goal will be to follow-up with the bronchiolitis in tree-in-bud and see if this is better. If the bronchiolitis is worse then will consider bronchoscopy. Looking for the suspicion of smoldering infection or any evidence of any sarcoid. In the meantime she does have increasing allergy symptoms. She has been complaining of some some chest tightness and some runny nose. On exam she does have some wheeze so therefore will go ahead and start her on Advair HFA. She continue with her nebulized therapy and CPT as prescribed. She will get the CAT scan next month and I will let her know how that comes out. We will follow-up in 4-6 months. If she has any issues or any concerns she can always call for an earlier assessment. [facility] Medical History Bronchiolitis BRE (acute kidney injury) Rheumatoid arthritis involving multiple joints COPD (chronic obstructive pulmonary disease) Atrial fibrillation with rapid ventricular response Blood poisoning due to Streptococcus pneumoniae bacteria Septic shock due to streptococcal infection Acute hypoxic respiratory failure Type 2 DE (myocardial infarction) Metabolic acidosis Hyperphosphatemia Septic shock Uremic encephalopathy Ischemic hepatitis Hypoxia Pancreatitis, acute Hypomagnesemia Sarcoidosis Streptococcal pneumonia Xanthelasma Pulmonary nodules Mild recurrent major depression Emphysema lung Hip bursitis Depression Essential hypertension Surgical History Cochlear implant in place Xanthelasma of lower eyelid History of coronary angiogram Hx of left knee surgery H/O cataract removal with insertion of prosthetic lens H/O laminectomy Carpal tunnel syndrome on both sides Family History Mother Leukemia Father Diabetes Heart disease Brother Heart disease Other No family history of cancer Social History Household Members: Spouse Housing: House Are you a primary managed care coordinator to a significant other at home: Yes (Son) Do you presently have visiting nurse or other home services: No Unable to assess alcohol history related to: Unknown Alcohol intake: current Alcohol intake frequency: holidays/special occasions only Alcohol type: wine Comment: bilateral wrist restraints--intubated Patient Tobacco Use Status: Former Tobacco user Tobacco use type: Cigarette e-Cigarette/Vaping Use: Never Used Second Hand Smoke Exposure: No Substance Use Type: Marijuana service: No Current occupational status: retired Cognitive needs: Yes (wheelchair, walker,) Hearing needs: No Vision needs: Yes (reading glasses) Review of Systems Const Denies night sweats ENT Denies Normal hearing present, Denies change in voice, Reports hearing loss, Denies lip swelling, Denies mouth pain, Reports nasal congestion, Reports nasal discharge and Denies tongue swelling Card Denies chest pain and Reports dyspnea on exertion Resp Reports cough and Reports dyspnea on exertion GI Denies abdominal pain Musc Reports as per HPI, Reports abnormal gait, Reports myalgias, Reports arthralgias, Reports joint swelling and Reports muscle weakness Neuro Denies Normal hearing present, Denies Neuro-related abnormal movements and Reports abnormal gait Psych Denies no additional complaints Ricardo/Lymph Denies easy bleeding and Denies lymphadenopathy Aller/Immun Denies lip swelling and Denies tongue swelling Physical Exam Vital Signs: Last Vital Signs Pulse 72 03/02/25 09:35 BP 128/68 03/02/25 09:35 Pulse Ox 94 03/02/25 09:35 Oxygen Delivery Method Room Air 03/02/25 09:35 BMI result Body Mass Index 30.2 Const General: cooperative, comfortable, no acute distress, alert and awake Nutritional Appearance: average body habitus and other (Frail) Orientation/consciousness: patient oriented x3 Limitations: wheelchair Neck Neck: Yes trachea midline, Yes supple and Yes no JVD Chest Chest palpation & inspection: normal inspection of the chest Resp Effort & Inspection: normal respiratory effort Auscultation: wheezes and diminished lung sounds Cardio Jugular venous distension: no JVD Rate: regular rate Rhythm: regular rhythm Heart sounds: S1 normal heart sound present, S2 normal heart sound present and no murmurs GI Auscultation: normal bowel sounds Skin General skin exam: no rashes or lesions noted Neuro General: patient oriented x3 and no focal motor deficits Cranial nerves: No Normal hearing present Extrem General: Yes no clubbing, cyanosis or edema Assessment & Plan Assessment & Plan (1) Sarcoidosis: Code(s): D86.9 - Sarcoidosis, unspecified Category: Medical (2) Seronegative rheumatoid arthritis: Comment: Hydroxychloroquine for 18 months failed Humira -dates unknown failed Enbrel 03/2020-06/2021-discontinued due to active synovitis. Methotrexate- 03/2020-01/2022- increased LFTs- resolved once stopped. Kevzara- 07/11-03/2022- low absolute neutrophils Orencia-03/2022-present effective. DC 08/2023 due to septic shock Actemra 11/2023 effective. PDN tapered off 05/2024 Code(s): M06.00 - Rheumatoid arthritis without rheumatoid factor, unspecified site Category: Medical (3) assisted systemic steroid user: Code(s): Z79.52 - assisted (current) use of systemic steroids Category: Medical (4) Emphysema lung: Code(s): J43.9 - Emphysema, unspecified Category: Medical Qualifiers: Emphysema type: centrilobular Qualified Code(s): J43.2 - Centrilobular emphysema (5) Pulmonary nodules: Code(s): R91.8 - Other nonspecific abnormal finding of lung field Category: Medical (6) Bronchiolitis: Code(s): J21.9 - Acute bronchiolitis, unspecified Category: Medical (7) Pulmonary nodule: Code(s): R91.1 - Solitary pulmonary nodule Category: Medical Plan Short-acting beta agonist as needed sputum for AFB Repeat CT cest, consider bronchosocpy if persistent bronchiolitis start Advair HFA CPT with acapella valve and nebs follow-up in 6 months Medications: New fluticasone propion-salmeterol 115-21 mcg/actuation (Advair HFA) 2 puffs inhalation Q12H 12 grams 11RF 30 days Coding Level of Care Code Est Pt Level 4 (08995) Complex EM visit Add On G2211 Diagnoses Sarcoidosis D86.9 Seronegative rheumatoid arthritis 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
--- OUTSIDE RECORDS SUMMARY | 2025-03-02 10:13 | XMS_ITS | Clinical Summary ---
Author Organization [facility] Facility Address [address] [address] Care Team Providers Care Piling Cutter Name Role Phone Miguelina Soliman MD Primary Care Provider [phone] Allergies Active Allergy Reactions Criticality Noted Date [...] patient's age to complete this topic Insurance [facility] Medicare [facility] Medicare Care Teams Piling Cutter Relationship Specialty Start Date End Date Miguelina Soliman MD [address] [place] PCP - General Internal Medicine 11/19/23
== END 2025-03-02 10:02 | disposition home or self-care (01) ==
LOC: HO.HPS 09:24
PROVIDERS: PCP Internal Medicine; Visit Provider Hospitalist
DX: D86.9 Sarcoidosis, unspecified (principal); M06.00 Rheumatoid arthritis without rheumatoid factor, unspecified site; Z79.52 Long term (current) use of systemic steroids; J43.2 Centrilobular emphysema; R91.8 Other nonspecific abnormal finding of lung field; J21.9 Acute bronchiolitis, unspecified; R91.1 Solitary pulmonary nodule
CPT/HCPCS: 99214; G2211

== ENCOUNTER → 2025-03-02 09:23 | Outpatient (BNVA) | payer MEDICARE, SELFPAY | PROVIDERS: PCP Internal Medicine; Visit Provider Hospitalist | DX: R03.0 Elevated blood-pressure reading, without diagnosis of hypertension (principal); D86.9 Sarcoidosis, unspecified; M06.00 Rheumatoid arthritis without rheumatoid factor, unspecified site; Z79.52 Long term (current) use of systemic steroids; J43.2 Centrilobular emphysema; R91.8 Other nonspecific abnormal finding of lung field; J21.9 Acute bronchiolitis, unspecified; R91.1 Solitary pulmonary nodule | CPT/HCPCS: 99212 ==

== ENCOUNTER 2025-03-23 16:13 | Outpatient (REF) | payer MEDICARE, SELFPAY ==
--- NOTE | ~2025-03-23 | CT_ITS ---
EXAMINATION: CT CHEST WITHOUT CONTRAST CLINICAL INFORMATION: Tree in bud changes, chronic COMPARISON: August 22, 2024 and April 18, 2024 TECHNIQUE: Multidetector volumetric CT imaging of the chest was done. Axial MIP volume rendering provided. Sagittal and coronal reformatted images were obtained. This CT examination was performed using dose optimization techniques as appropriate, variously including the following: *Automated exposure control *Adjustment of mA and/or kV according to patient size (this includes techniques or standardized protocols for targeted exams where dose is matched to indication/reason for exam; i.e. extremities or head) *Use of iterative reconstruction technique DLP: 169 mGY*cm FINDINGS: LUNGS: Again seen are nodular, and tree in bud changes in the lungs, which appear stable since March 2024. MEDIASTINUM: The mediastinum is normal. Moderate vascular calcifications are seen in the thoracic aorta CORONARY ARTERY CALCIFICATION: Present PLEURA: There is no pleural effusion. No pleural mass or thickening. AXILLA: No lymphadenopathy. UPPER ABDOMEN: Small spleen with peripheral coarse calcifications demonstrate no change. OSSEOUS STRUCTURES: Moderate to severe degenerative disease is present in the thoracic spine with disc osteophyte complex narrowing the spinal canal at T6-7 and T8-9. No change. CT/CT chest wo IV con IMPRESSION: Stable tree-in-bud and nodular changes in the lungs since April 18, 2024. Per Fleischner Society recommendations, follow up CT chest without contrast in 2 years, and again 2 years after that. Small spleen with chronic coarse calcifications peripherally. Degenerative changes in thoracic spine with disc osteophyte complex narrowing the spinal canal at T6-7 and T8-9. Electronically signed by: Jayro Flores MD 03/23/2025 05:09 PM EDT
--- OUTSIDE RECORDS SUMMARY | 2025-03-23 16:16 | XMS_ITS | Data Portability ---
Author Organization [place] - [facility], Allergy Address [address] [place] [address] Care Team Providers Care Train Engineer Name Role Phone MAXX DURAN Primary Care Provider Assessment Encounter Date Assessment Date Assessment LastModified by Organization Details LastModified Time 06/28/2024 06/28/2024 Right ear has healed well following placement of cochlear implant. She is extremely pleased with her progress with the implant so far. She will continue to follow-up with the [facility]plant [facility] for cochlear implant [...] scheduling process to implant the left ear. [email or web address] Not available 06/28/2024 14:57:37 11/01/2024 11/01/2024 The [...] be implanting the left ear with the Cochlear [employer] CI 632implant. After full discussion, the patient would like to proceed with surgery. I have provided patient with the contact information for my certified surgical technologist. We will begin the scheduling process and see the patient back at the time of surgery. Patient will not require medical clearance from their primary care provider preoperatively. Patient already has an appointment with Leslie Agosto with Cochlear to set up her implant order. [email or web address] Not available 11/01/2024 13:53:38 12/02/2024 12/02/2024 74yo [...] cochlear device implantat ion (SURG) 2024 025 [email or web address] Not available 11/01/2024 14:29:14 Imaging None recorded. Medication Orders None recorded. Patient TargetsNo targets recorded. Patient InstructionsNo instructions recorded. Reason for Referral None Reported. Results Created Date Observation Date Name Description Value Unit Range Abnormal Flag Note LastModifiedBy Organization Detail LastModifiedTime 02/29/20 24 02/26/2024 fluor oscop y evalu ation (PROC ) No observ ation record ed. [email or web address] [facility] [address] [address], [place], [address], 03/07/2024 15:21:37 05/11/20 24 10/08/2023 imagi ng/di agnos tic resul t No observ ation record ed. [email or web address] Not Available 00:11:43 05/11/20 24 11/25/2023 cochl ear impla nt deter minat ion form* No observ ation record ed. [email or web address] Not Available 2023 14:56:10 05/11/20 24 09/05/2023 [...] (PROC ) No observ ation record ed. [email or web address] [address], [address], 11/25/2024 16:40:30 Result Notes None recorded. Problems Name Problem SNOMED Code Status Onset Date Resolution Date Notes Provider Name and Address Organization Details Recorded Time Sensorine ural hearing loss of bilateral ears 456758686 Active 2023 Sensorineu ral hearing loss, bilateral; Note: Date Diagnosed: 10/08/2023 4:56 PM (H90.3) Not Available [employer] 02:33:39 Postopera tive nausea and vomiting 9371016 Active 2023 GISSELL RODRÍGUEZ MD [address] [address], [place], [address] , [facility] - [facility] 4 04:28:19 Problem Notes None recorded. Procedures Surgical History Date Name Laterality Status Provider Name and Address Organization Details Recorded Time 11/26/19 25 COCHLEAR DEVICE IMPLANTATION (SURG) completed Rosalio Marcelino [facility] 11/25/2024 15:36:38 11/26/19 COCHLEAR DEVICE IMPLANTATION (SURG) completed Rosalio Marcelino [facility] 11/28/2024 13:17:48 Imaging Results None recorded. Procedure Notes None recorded. Medical Equipment Implant [employer] Issuing Agency Serial Number Lot Number Status Provider Name and Address Organization Details Recorded Time Cochlear implant FDA [id number] Y THOMAS MILLER MD [address] [place] [address],[address] [place] [address], [place], [phone] , [facility] - [facility] 4 09:14:31 Cochlear implant FDA [id number] Evans MILLER MD [address] [place] [address], [place], [address] , [facility] 5 09:37:19 Allergies Allergen ID Allergen Name Allergen Category Reaction Reaction Severity Criticality Documentation Date Start Date Code Code System Note Provider Name and Address Organization Details Recorded Time 17570 Product containin g 3-hydroxy -3-methyl glutaryl- coenzyme A reductase inhibitor (product) medicatio n other Not available Not available 02/02/2024 83703 009 SNOMED React ion: Unkno wn; Not Available [facility] 4 00:59:28 55269 Eliquis medicatio n other Not available Not available 02/02/2024 64534 36 RxNorm React ion: Unkno wn; Not Available [facility] 4 00:59:28 Medications Name Sig Start Date [...] by mouth 02/25 completed Medicati on ID: [id number] D uration Value: 14 Brand Name: predniso ne Send Method: E-Prescr ibed Sub s Allowed: subs OK Speci al Instruct ion: Take 6 tabs PO QD X 9 days, then 5 tabs PO QD day 10, 4 tabs day 11, 3 tabs day 12, 2 tabs day 13 and 1 tab day 14 Medic ationGen ericName : predniso ne Medic ation ID: [id number] D uration Value: 14 Brand Name: predniso [...] mg tablet 06/28 completed Medicati on ID: [id number] B rand Name: carvedil ol Send Method: E-Prescr ibed Sub s Allowed: subs OK Medic ationGen ericName : carvedil ol Not Available Not Available Not Available prednison e 5 mg tablet TAKE 1 TABLET BY MOUTH EVERY DAY 06/28 completed Not Available Not Available Not Available clopidogr el 75 mg tablet 06/28 completed Medicati on ID: [id number] B rand Name: clopidog rel Send Method: E-Prescr ibed Sub s Allowed: subs OK Medic ationGen ericName : clopidog rel Not Available Not Available Not Available amlodipin e 5 mg tablet 06/28 completed Medicati on ID: [id number] B rand Name: amlodipi ne Send Method: [...] tion aerosol inhaler active Medicati on ID: [id number] B rand Name: albutero l sulfate Send Method: E-Prescr ibed Sub s Allowed: subs OK Medic ationGen ericName : albutero l sulfate Not Available Not Available Not Available lisinopri l 40 mg tablet 06/28 completed Medicati on ID: [id number] B rand Name: lisinopr il Send Method: [...] mg capsule 06/28 completed Medicati on ID: [id number] B rand Name: nitrofur antoin monohyd/ m-cryst [...] Updated DateTime 11/01/2024 170.18 cm 26.3 kg/m2 71452.52 g Ada Mccormack [place] [facility] 11/01/2024 13:34:58 Date Recorded Body height Body mass index (BMI) Body weight Provider Name and Address Organization Details Last Updated DateTime 12/02/2024 170.18 cm 29.8 kg/m2 15672.55 g Angeles Deng [place] - [facility] 12/02/2024 14:48:13 Date Recorded Body height Body mass index (BMI) Body weight Provider Name and Address Organization Details Last Updated DateTime 03/03/2024 170.18 cm 26.3 kg/m2 50083.52 g Maxx Archer [place] [facility] 03/03/2024 11:45:51 Date Recorded Body height Body weight Provider Name and Address Organization Details Last Updated DateTime 06/28/2024 170.18 cm 10236.52 g Maxx Archer [facility] 06/28/2024 13:56:14 Social History None recorded. Functional Status None recorded. Mental Status None recorded. Family History Nothing Reported. Medical History No medical history recorded. Gynecological HistoryNo gynecological history recorded. Obstetrics History GPAL:G 0 P 0 0 0 0 Past Encounters Encounter ID Performer Location Encounter Start Date Encounter Closed Date Diagnosis/Indication Diagnosis SNOMED-CT Code Diagnosis ICD10 Code Diagnosis Note [id number] KERI THOMPSON PA-C [facility] [address] [address] 03/03/2024 11:38:42 03/03/2024 11:59:26 Sensorineural hearing loss of bilateral ears 209916056 H90.3 Sensorineu ral hearing loss in right ear 8705807947 9100 H90.A21 [id number] THOMAS MILLER MD [facility] [address] [address] 06/28/2024 13:33:51 06/28/2024 15:16:42 Sensorineural hearing loss of bilateral ears 435301163 H90.3 Cochlear p rosthesis in situ 651287970 Z96.21 [id number] THOMAS MILLER MD [facility] [address] [address] 11/01/2024 13:29:03 11/01/2024 14:00:42 Sensorineural hearing loss of bilateral ears 177397097 H90.3 Cochlear p rosthesis in situ 808711781 Z96.21 [id number] SANTO REILLY PA-C [facility] [address] [address] 12/02/2024 14:40:44 12/02/2024 15:09:17 Postoperative visit 302665789 Z48.89 Sensorineu ral hearing loss of bilateral ears 779081513 H90.3 Health Concerns Section Related Observation LastModified by Organization Detai ls LastModified Time None Recorded Concern Status LastModified by Organization Details LastModified Time None Recorded Advance Directives Directive None Recorded Payers Insurance Date Sequence Insurance Name Policy Number Policy Durbin Covered Member ID Durbin Member ID Guarantor Name 05/13/2024 1 [employer] - SENIOR [employer]AN (MEDICARE SUPPLEMENT) Tasha Nieto [id number] Tasha Nieto 12/02/2024 1 [facility] - SENIOR PLAN (MEDICARE REPLACEMENT HMO) Tasha Nieto [id number] Tasha Nieto Notes Date Note Type Note Provider Name and Address Organization Details Recorded Time 03/03/2024 text/html 73 year old fema le presents with daughter for postoperative evaluation following implantation of right CI 02/26/[address] Miller. Reports she has been exceptionally dizzy and nauseated, though this is slowly improving. The area is quite tender. She had blood coming from the right ear yesterday after using a Q-tip. Scheduled for device mapping next week. SARAH FARMER MD [address] [facility],[address] [address], [place], [address], [facility] 03/03/2024 16:57:19 06/28/2024 text/html Status post plac ement of right cochlear implant on 02/26/2024. She had some dizziness postoperatively and used some Zofran. Otherwise uneventful postoperative course. She has been following up at the [facility]plant [facility] for implant mapping. Able to use the phone with relative ease. Going to physical therapy to help with her residual balance disturbance. THOMAS MILLER MD [address] [facility],[address], [address], [facility] 06/28/2024 14:58:25 11/01/2024 text/html Status post plac ement of right cochlear implant on 02/26/2024. She had some dizziness postoperatively and used some Zofran. Otherwise uneventful postoperative course. She has been following up at the [facility]plant [facility] for implant mapping. [...] by her daughter. THOMAS MILLER MD [address] [facility] [place],[address] [address], [place], [address], [facility] 11/01/2024 14:00:19 12/02/2024 text/html 74yo female pres ents following cochlear implant on 11/[address] Miller. Patient is doing well post-operatively. Dull ear ache is managed with OTC analgesics. Denies dizziness, taste disturbance, numbness, facial asymmetry, hearing loss, or otorrhea. FEMI BELL MD [address] [place] [address], [place], [address], [facility] - [facility] 12/04/2024 08:11:18 OBGyn Episode No OBEpisode recorded.
--- OUTSIDE RECORDS SUMMARY | 2025-03-23 16:16 | XMS_ITS | Patient Health Record ---
Author Organization [facility] Address [address] [place] [address] Care Team Providers Care Director Private Name Role Phone Miguelina Soliman Primary Care Provider Unavailab Andrei Pereira Jr Unavailable [phone] Allergies Allergen (clinical drug ingredient) Drug/Non Drug Allergy documented on EMR Reaction Allergy Type Onset Date Status Substance with 3-gtmgamm-8-methylgluta ryl-coenzyme A reductase inhibitor mechanism of action (substance) statins (uncoded) Unknown Allergy Active Reason For Referral Referring Provider First Name Jemran Referring Provider Last Name Vitor Referred Organization [facility] Referred Provider Andrei Dale Jr Referred Address [address],[place],[address], Referred Provider Specialty Gastroentero logy General Notes Simin Vogt 2024 02:58:00 PM >requested a gene referral from Dr. Dooley' office for office visit with Dr. Dale on 02-08-25, Simin Vogt 01/11/2025 10:38:58 AM > Per [facility]. No referral required for this [place] plan. Referral Priority Routine Medications Medication SIG (Take, Route, Frequency, Duration) Notes Start Date End Date Status Prolia 60 MG/ML as directed Subcutaneous Active traMADol HCl 50 MG 1 tablet as needed O rally Once a day Active Vitamin D 1000 UNIT 1 capsule Orally Once a day Active Wellbutrin 75 MG 1 tablet Orally Once a day Active amLODIPine Besylate 5 MG 1 tablet Orally Once a day Active Lisinopril 40 MG 1 tablet Orally Once a day Active Carvedilol 6.25 MG 1 tablet with food O rally Twice a day Active Xarelto 10 MG 1 tablet with food O rally Once a day Active buPROPion HCl 75 MG 2 tablets Orally Twi ce a day Active Actemra 162 MG/0.9ML as directed Subcutaneous Active Cannabus Medical Marijuana CBD daily Active Praluent 75 MG/ML as directed Subcutaneous Active Immunizations Vaccine Route Administration Date Status Comme nts Influenza Unknown 05/31/2024 Administered Social History Tobacco Use: Social History Observation [...] Problem Status W/U Status Risk Notes Problem 664694617 Colon cancer screening (Z12.11) Active confirmed Problem Long-term current use of anticoagulant (426799139) snf (current) use of anticoagulants (Z79.01) Active confirmed Problem 977268507526180 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 (Z79.02) Active confirmed Problem History of adenomatous polyp of colon (654133566) History of adenomatous polyp of colon (Z86.0101) Active confirmed Vital Signs Temperature 98.0 degrees Fahrenheit 02/08/2025 Blood pressure diastolic 01 mm Hg 02/08/2025 Height 67 in 02/08/2025 Blood pressure systolic 001 mm Hg 02/08/2025 Weight 193.4 lbs 02/08/2025 BMI 30.29 kg/m2 02/08/2025 Encounters Encounter Location Date Provider Diagnosis [facility] [address] [place] [address] 02/08/2025 Andrei Dale Jr Colon cancer screening Z12.11 ; snf (current) use of anticoagulants Z79.01 and History of adenomatous polyp of colon Z86.0101 Assessments Encounter Date Diagnosis (ICD Code) Assessment Notes Treatment Notes Treatment Clinical Notes Section Notes 02/08/2025 Colon cancer screening (ICD-10 - Z12.11) We discussed colonoscopy today. We discussed risks and benefits of the procedure today. She understands these and agrees to proceed. She is advised to stop Xarelto 3 days before the procedure. 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 We discussed risks and benefits of the procedure today. She understands these and agrees to proceed. She is advised to stop Xarelto 3 days before the procedure. 02/08/2025 History of adenomatous polyp of colon (ICD-10 - Z86.0101) We discussed colonoscopy today. We discussed risks and benefits of the procedure today. She understands these and agrees to proceed. She is advised to stop Xarelto 3 days before the procedure. Plan Of Treatment Future Test Test Name Order Date COLONOSCOPY 04/08/2018 COLONOSCOPY 02/08/2025 Next Appt Details Provider Name:Andrei bui , 03/28/2025 07:30:00 AM, [address] [place] [address] , [place], [place], [phone], Insurance Providers Payer Name Payer Address Payer Phone Subscriber Number Group Number Insured Name Patient Relationship to Insured Coverage Start Date Coverage End Date [employer] [address] [place] [address] [id number] SIRISHA VERDIN Self - patient is the insured Medical (General) History Medical History History ICD Code peripheral arterial disease rheumatoid arthritis hypertension elevated cholesterol depression pneumonia Paroxysmal atrial fibrillation Sensorineural hearing loss MGUS Sarcoidosis Peripheral arterial disease Colonoscopy 08/08, tubular adenomas x 2, 5-year follow-up Surgical History Surgery Date(Month/Year) Cochlear implants bilaterally Cataract surgery thumb surgery Peripheral arterial disease with stent p lacement benign breast surgeries Hospitalization History Reason Date(Month/Year) pneumonia x 2
== END 2025-03-23 16:14 | disposition home or self-care (01) ==
LOC: HO.CT 16:13
PROVIDERS: PCP Internal Medicine; Visit Provider Hospitalist
DX: R91.1 Solitary pulmonary nodule (principal)
CPT/HCPCS: 71250

== ENCOUNTER → 2025-03-23 16:15 | Outpatient (BNV) | payer MEDICARE, SELFPAY | PROVIDERS: PCP Internal Medicine; Visit Provider Radiology Diagnostic Radiology | DX: M51.34 Other intervertebral disc degeneration, thoracic region (principal); D73.89 Other diseases of spleen; R91.8 Other nonspecific abnormal finding of lung field | CPT/HCPCS: 71250 ==

== ENCOUNTER 2025-03-28 06:12 | Day surgery (SDC) | payer MEDICARE, SELFPAY ==
--- OUTSIDE RECORDS SUMMARY | 2025-03-14 11:05 | XMS_ITS | Clinical Summary ---
Author Organization [facility] Facility Address [address] [address] Care Team Providers Care Seed Cleaner Operator Name Role Phone Miguelina Soliman MD Primary Care Provider [phone] Allergies Active Allergy Reactions Criticality Noted Date [...] patient's age to complete this topic Insurance [facility] Medicare [employer] Medicare Care Teams Seed Cleaner Operator Relationship Specialty Start Date End Date Miguelina Soliman MD [address] [place] PCP - General Internal Medicine 11/19/23
[2025-03-23 14:20] VITALS: BMI 30.2
--- NOTE | 2025-03-27 12:17 | HO.ANESPROP2 ---
Documented by User: Odilia Rea NP 03/27/25 12:28 HPI - Anesthesia Eval Consult details Narrative: 74yo F for For Colonoscopy Follows [facility] for: PAD, HLD, PAF (xarelto - ok'd to hold), bilat mild carotid stenosis Stable at 01/2025 office visit Follows [facility] [place] for sarcoid - good effect with Actemra, CPT - stable at 02/2025 office visit PMF Active Problems Active Problems: All Active Problems Mild recurrent major depression (Acute) Pure hypercholesterolemia (Acute) Tubular adenoma of colon (Acute) Greater trochanteric bursitis of both hips (Acute) Sensorineural deafness (Acute) Paroxysmal atrial fibrillation (Acute) Anemia (Acute) MGUS (monoclonal gammopathy of unknown significance) (Chronic) Osteoporosis (Acute) Rheumatoid arthritis involving multiple joints (Acute) COPD (chronic obstructive pulmonary disease) (Acute) Pulmonary nodules (Acute) Mild recurrent major depression (Acute) Essential hypertension (Acute) Past Medical History Medical History Sarcoidosis MGUS (monoclonal gammopathy of unknown significance) Sensorineural hearing loss Elevated cholesterol Rheumatoid arthritis PAD (peripheral artery disease) Bronchiolitis BRE (acute kidney injury) Rheumatoid arthritis involving multiple joints COPD (chronic obstructive pulmonary disease) Atrial fibrillation with rapid ventricular response Blood poisoning due to Streptococcus pneumoniae bacteria Septic shock due to streptococcal infection Acute hypoxic respiratory failure Type 2 AL (myocardial infarction) Metabolic acidosis Hyperphosphatemia Septic shock Uremic encephalopathy Ischemic hepatitis Hypoxia Pancreatitis, acute Hypomagnesemia Sarcoidosis Streptococcal pneumonia Xanthelasma Pulmonary nodules Mild recurrent major depression Emphysema lung Hip bursitis Depression Essential hypertension Family History Family History Mother Leukemia Father Diabetes Heart disease Brother Heart disease Other No family history of cancer Surgical History Surgical History History of vascular surgery Hx of thumb surgery Hx of breast surgery H/O colonoscopy Cochlear implant in place Xanthelasma of lower eyelid History of coronary angiogram Hx of left knee surgery H/O cataract removal with insertion of prosthetic lens H/O laminectomy Carpal tunnel syndrome on both sides Social History Social History Household Members: Spouse Housing: House Are you a primary adult daycare coordinator to a significant other at home: Yes (Son) Do you presently have visiting nurse or other home services: No Unable to assess alcohol history related to: Unknown Alcohol intake: current Alcohol intake frequency: holidays/special occasions only Alcohol type: wine Comment: bilateral wrist restraints--intubated Patient Tobacco Use Status: Former Tobacco user Tobacco use type: Cigarette e-Cigarette/Vaping Use: Never Used Second Hand Smoke Exposure: No Use of substances other than those prescribed or required for medical reasons: Yes Substance Use Type: Marijuana Advance Directives: No Advance Directives Information Provided: Yes service: No Current occupational status: retired Cognitive needs: Yes (wheelchair, walker,) Hearing needs: No Vision needs: Yes (reading glasses) Meds Allergies Allergy/AdvReac Type Severity Reaction Status Date / Time Auovjns-JFJ-JcN Reductase Allergy Severe ANAPHYLACTI Verified 03/02/25 09:39 Inhibitor (JWCKBMZ-AZV-VRZ C REDUCTASE INHIBITOR) apixaban (From Eliquis) Allergy Intermediate Vomiting Verified 03/02/25 09:39 Home Medications ?Medication ?Instructions ?Recorded ?Confirmed ?Last Taken ?Type denosumab 60 mg/mL subcutaneous 60 mg subcut [id number] 12/17/23 02/07/25 Unknown History syringe (Prolia) carvedilol 6.25 mg tablet 6.25 mg PO BID 02/02/24 02/07/25 Unknown History cholecalciferol (vitamin D3) 50 50 mcg PO DAILY 09/09/24 02/07/25 Unknown History mcg (2,000 unit) capsule evolocumab 140 mg/mL subcutaneous 140 mg subcut Q2W 03/02/25 Unknown History pen injector (Repatha SureClick) Exam Height,Weight and Vital Signs: Height 5 ft 7 in Weight 87.543 kg Pertinent Lab Results Pertinent Lab Results: Laboratory Tests 12/02/24 11:16 WBC 4.2 L Hgb 13.4 Hct 40.4 Plt Count 229 Sodium 135 Potassium 4.1 Chloride 104 Carbon Dioxide 24 BUN 16 Creatinine 0.71 Narrative Narrative: EKG 10/2024 Vent. Rate : 91 BPM Atrial Rate : 91 BPM P-R Int : 182 ms QRS Dur : 94 ms QT Int : 360 ms P-R-T Axes : 68 67 86 degrees QTcB Int : 442 ms Sinus rhythm with occasional Premature ventricular complexes Possible Left atrial enlargement Nonspecific ST abnormality Abnormal ECG When compared with ECG of 03-Feb-2024 07:25, Premature ventricular complexes are now Present CT chest wo IV con 03/2025 IMPRESSION: Stable tree-in-bud and nodular changes in the lungs since April 18, 2024. Per Fleischner Society recommendations, follow up CT chest without contrast in 2 years, and again 2 years after that. Small spleen with chronic coarse calcifications peripherally. Degenerative changes in thoracic spine with disc osteophyte complex narrowing the spinal canal at T6-7 and T8-9. Assessment and Plan Assessment Anesthesia Assessment: Chart Reviewed Documented by User: Alden Gerber MD 03/28/25 14:24 [facility] Past Medical History Medical History Sarcoidosis MGUS (monoclonal gammopathy of unknown significance) Sensorineural hearing loss Elevated cholesterol Rheumatoid arthritis PAD (peripheral artery disease) Bronchiolitis BRE (acute kidney injury) Rheumatoid arthritis involving multiple joints COPD (chronic obstructive pulmonary disease) Atrial fibrillation with rapid ventricular response Blood poisoning due to Streptococcus pneumoniae bacteria Septic shock due to streptococcal infection Acute hypoxic respiratory failure Type 2 AL (myocardial infarction) Metabolic acidosis Hyperphosphatemia Septic shock Uremic encephalopathy Ischemic hepatitis Hypoxia Pancreatitis, acute Hypomagnesemia Sarcoidosis Streptococcal pneumonia Xanthelasma Pulmonary nodules Mild recurrent major depression Emphysema lung Hip bursitis Depression Essential hypertension Family History Family History Mother Leukemia Father Diabetes Heart disease Brother Heart disease Other No family history of cancer Family history of problems with anesthesia: No Surgical History Surgical History History of vascular surgery Hx of thumb surgery Hx of breast surgery H/O colonoscopy Cochlear implant in place Xanthelasma of lower eyelid History of coronary angiogram Hx of left knee surgery H/O cataract removal with insertion of prosthetic lens H/O laminectomy Carpal tunnel syndrome on both sides History of Problems with Anesthesia: No Social History Social History Household Members: Spouse Housing: House Are you a primary adult daycare coordinator to a significant other at home: Yes (Son) Do you presently have visiting nurse or other home services: No Unable to assess alcohol history related to: Unknown Alcohol intake: current Alcohol intake frequency: holidays/special occasions only Alcohol type: wine Comment: bilateral wrist restraints--intubated Patient Tobacco Use Status: Former Tobacco user Tobacco use type: Cigarette e-Cigarette/Vaping Use: Never Used Second Hand Smoke Exposure: No Use of substances other than those prescribed or required for medical reasons: Yes Substance Use Type: Marijuana Advance Directives: No Advance Directives Information Provided: Yes service: No Current occupational status: retired Cognitive needs: Yes (wheelchair, walker,) Hearing needs: No Vision needs: Yes (reading glasses) Meds Allergies Allergy/AdvReac Type Severity Reaction Status Date / Time Ffwlfrj-VKY-MyK Reductase Allergy Severe ANAPHYLACTI Verified 03/02/25 09:39 Inhibitor (ORAHFAM-LHT-TPR C REDUCTASE INHIBITOR) apixaban (From Eliquis) Allergy Intermediate Vomiting Verified 03/02/25 09:39 Home Medications ?Medication ?Instructions ?Recorded ?Confirmed ?Last Taken ?Type denosumab 60 mg/mL subcutaneous 60 mg subcut [id number] 12/17/23 02/07/25 Unknown History syringe (Prolia) carvedilol 6.25 mg tablet 6.25 mg PO BID 02/02/24 02/07/25 Unknown History cholecalciferol (vitamin D3) 50 50 mcg PO DAILY 09/09/24 02/07/25 Unknown History mcg (2,000 unit) capsule evolocumab 140 mg/mL subcutaneous 140 mg subcut Q2W 03/02/25 Unknown History pen injector (Repatha SureClick) Exam Airway Mallampati Class: I TM Dist: >3cm Neck ROM: Full Loose/Missing/Broken Teeth: Yes (Implants) Assessment and Plan Assessment Anesthesia Assessment: Anesthesia Plan Discussed Final Anesthetic Review Family History of Problems with Anesthesia: No History of Problems with Anesthesia: No NPO: Yes ASA Class: III Final Preanesthetic Review: No Changes in Pt Med Stat, Meds/Allgs Chart Reviewed, Consent Obtained/Reviewed and Anes Risks/Benef Reviewed Patient Risk: Intermediate Procedure Risk: Low Anesthetic Plan Anesthetic Plan: MAC: Disposition: Standard PACU
[2025-03-28 06:54] VITALS: BP 89/63; PULSE 96; RESP 16; TEMP 36; O2SAT 95
[2025-03-28] MEDS: Lactated Ringers 1,000 ML 100 ML IVCONT (07:00)
--- NOTE | 2025-03-28 07:40 | MHC.SHP ---
Pre-Procedural Eval Section A - 24 Hr Update-Section A only Date of Service: 03/28/25 Section B - Complete if H&P > 30 days Chief Complaint: screening Details of Present Illness: see H&P no changes Relevant Family History (Specify if Yes): No Relevant Social History: None Present Medications: see Short Stay Collaborative assessment Medical History: No relevant PMH History of Previous Operations: No relevant previous surgery Allergies: Allergies Allergy/AdvReac Type Severity Reaction Status Date / Time Zlepsag-TPM-ZbD Reductase Allergy Severe ANAPHYLACTI Verified 03/02/25 09:39 Inhibitor (GRXCXCL-LUM-RIB C REDUCTASE INHIBITOR) apixaban (From Eliquis) Allergy Intermediate Vomiting Verified 03/02/25 09:39 Review of Systems Sugical H&P ROS: Negative: Constitution, Cardiovascular, Respiratory, Neurological, Psychiatric, Hem-Onc, Allergic/Immunologic, Gastrointestinal, Genitourinary, Musculoskeletal, Integumentary, Endocrine and Eyes/Ears/Nose/Throat Exam Surgical H&P Exam: Normal: HEENT, Normal: Heart, Normal: Lungs, Normal: Extremities, Normal: Abdomen, Normal: Skin and Normal: Neurological Plan Diagnosis/Plan: Unchanged I have reviewed the history and physical and performed a pertinent physical examination on my patient. No changes have occurred unless specified. Time Spent With Patient Time: Total time managing care of this patient today ____ minutes.
[2025-03-28 08:23] VITALS: BP 97/50; PULSE 73; RESP 16; TEMP 37; O2SAT 95
[2025-03-28 08:30] VITALS: BP 91/49; PULSE 77; RESP 16; O2SAT 95
[2025-03-28 08:38] VITALS: BP 113/56; PULSE 83; RESP 16; TEMP 37; O2SAT 95
--- NOTE | 2025-03-29 11:24 | OP_ITS ---
DATE OF SERVICE: 03/28/2025 SURGEON: Andrei Dale MD INDICATIONS: Colon cancer screening. PREOPERATIVE DIAGNOSIS: POSTOPERATIVE DIAGNOSIS: PROCEDURE PERFORMED: Colonoscopy to the cecum with biopsy. ESTIMATED BLOOD LOSS: COMPLICATIONS: ANESTHESIA: Monitored anesthesia care. ASSISTANTS: SPECIMENS: DESCRIPTION OF PROCEDURE: A history and physical was performed. The risks and benefits of the procedure were explained to the patient. Informed consent was obtained. The patient was placed in the left lateral decubitus position. A digital rectal exam was performed and was found to be normal. The Olympus pediatric video colonoscope was introduced into the rectum and advanced to the cecum. The cecum was identified by transillumination, palpation, and identification of ileocecal valve. Examination was performed. The scope was removed. She tolerated the procedure well and was returned to the recovery area in stable condition. FINDINGS: The terminal ileum was not examined. The visualized colonic mucosa was normal. The quality of the prep was good. Two polyps were identified and removed with the biopsy forceps. Both measured less than 5 mm. These were located at 65 cm and 25 cm. There was mild sigmoid diverticulosis. Retroflexed examination was normal. The quality of the prep was good. IMPRESSION: Normal colonoscopy, colon polyps. RECOMMENDATION: Follow up the biopsy results. MD TREY Pantoja/MAGNOL / [phone]
== END 2025-03-28 08:54 | disposition home or self-care (01) ==
PROVIDERS: PCP Internal Medicine; Visit Provider Internal Medicine Gastroenterology
PROC: 0DJD8ZZ Inspection of Lower Intestinal Tract, Via Natural or Artificial Opening Endoscopic (ICD-10-PCS; CPT 45378; principal; 2025-03-28 07:30)
DX: Z12.11 Encounter for screening for malignant neoplasm of colon (principal); Z86.0101 Personal history of adenomatous and serrated colon polyps; D12.5 Benign neoplasm of sigmoid colon; D12.4 Benign neoplasm of descending colon; K57.30 Diverticulosis of large intestine without perforation or abscess without bleeding; I10 Essential (primary) hypertension; I48.0 Paroxysmal atrial fibrillation; E78.00 Pure hypercholesterolemia, unspecified; I73.9 Peripheral vascular disease, unspecified; D47.2 Monoclonal gammopathy; D86.9 Sarcoidosis, unspecified; M06.9 Rheumatoid arthritis, unspecified; H90.5 Unspecified sensorineural hearing loss; Z96.21 Cochlear implant status; F32.A Depression, unspecified; Z95.828 Presence of other vascular implants and grafts; Z87.01 Personal history of pneumonia (recurrent); Z87.891 Personal history of nicotine dependence; Z98.890 Other specified postprocedural states
CPT/HCPCS: 45380; 88305; J2003; J2371; J2704

== ENCOUNTER 2025-05-15 07:39 | Outpatient (REF) | payer MEDICARE, SELFPAY ==
--- OUTSIDE RECORDS SUMMARY | 2025-03-28 03:30 | XMS_ITS ---
Author Organization [facility] Address [address] [place] [address] Care Team Providers Care Aix Architect Name Role Phone Miguelina Soliman Primary Care Provider Unavailab Andrei Pereira Jr REASON FOR VISIT screening Encounters Encounter Location Date Provider Diagnosis [facility] [place] Outpatient [address] [facility] [place] [phone] 03/28/2025 Andrei Dale Jr Plan Of Treatment No Information Progress Notes * ELIZABETH SIRISHA ADOB:[birth year] (74 yo F)Acc No.[id number]:03/28/2025 COLON WITH MAC Patient: SIRISHA LIN Provider: Sejal Dale MD :1950 A ge:74 Y S ex:Female Date:03/28/2025 Address:[address] [id number] Pcp:Miguelina Flor Subjective: * Chief Complaints: * [...] Date: 03/28/2025 Generated for Printi ng/Faxing/eTransmitting on: 05/15/2025 07:41 AM EDT
--- NOTE | ~2025-05-15 | MM_ITS ---
EXAMINATION: MM SCREENING DIGITAL BREAST TOMOSYNTHESIS, BILATERAL CLINICAL INFORMATION: Screening. Asymptomatic. COMPARISON: Mammography: Comparison is made with available priors TECHNIQUE: Digital breast mammography with tomosynthesis is performed in both the craniocaudal and mediolateral oblique views along with computer-aided detection (CAD). FINDINGS: There are scattered areas of fibroglandular density (ACR BI-RADS breast composition Category b). There are no significant masses, abnormal calcifications, or other abnormalities. MM/MM tomosynthesis screening BI IMPRESSION: No mammographic evidence of malignancy. ASSESSMENT: BI-RADS BI-RADS 1 - Negative RECOMMENDATION: Routine annual mammography screening. 1 year F/U This examination should not preclude the clinical evaluation of a suspicious palpable abnormality. This patient's information was entered into a reminder system with a target due date for their next mammogram. Electronically signed by: aSra Ferguson DO 05/17/2025 12:15 PM EDT
--- OUTSIDE RECORDS SUMMARY | 2025-05-15 07:41 | XMS_ITS | Clinical Summary ---
Author Organization [facility] Address [address] [place] [address] Phone Care Team Providers Care Roller Maker Name Role Phone Miguelina Flor MD Primary Care Provider [phone] Allergies Active Allergy Reactions Criticality Noted Date Comments Apixaban Diarrhea,Nausea And Vomiting High 04/28/2025 Rdrsykt-Kdl-Ihy Reductase Inhibitors Anaphylaxis High 04/28/2025 Medications albuterol HFA (PROAIR HFA ; PROVENTIL HFA ; VENTOLIN HFA) 90 mcg/actuation inhaler PRN COPD, 0 Refills, Maintenance, 2 4 Active acetaminophen (TYLENOL) 325 mg tablet Take 2 tablets (650 mg total) by mouth Every 4 hours as needed. 4 Active buPROPion XL (WELLBUTRIN XL) 150 mg 24 hr tablet Take 1 tablet (150 mg total) by mouth 1 (one) time each day. Active carvediloL (COREG) 6.25 mg tablet Take 1 tablet (6.25 mg total) by mouth 2 (two) times a day with meals. Active Repatha Syringe 140 mg/mL syringe Inject 1 mL (140 mg total) under the skin every 14 (fourteen) days. 5 Active Advair HFA 115-21 mcg/actuation inhaler Inhale 2 puffs by mouth every 12 (twelve) hours. Active levalbuterol (XOPENEX) 1.25 mg/3 mL nebulizer solution 1.25 MG (3 ML) INHALED 2 TIMES A DAY FOR 90 DAYS Active lidocaine 4 % patch Place 1 patch on the skin 1 (one) time each day at the same time. 4 Active lisinopriL (PRINIVIL,ZESTRIL ) 20 mg tablet Take 1 tablet (20 mg total) by mouth 2 (two) times a day. Active Xarelto 20 mg tablet Take 1 tablet (20 mg total) by mouth 1 (one) time each day. Active Actemra ACTPen subcutaneous injection 4 Active traMADoL (ULTRAM) 50 mg tablet Take 1 tablet (50 mg total) by mouth every 6 hours as needed. Max Daily Amount: 200 mg 7 Active denosumab (Prolia) 60 mg/mL syringe syringe Inject 1 mL (60 mg total) under the skin 1 (one) time. Active Encounters Date Type Department Care Team Description 04/28/2025 10:00 AM EDT Consult Orthopedic Surgery [address] [id number] Alejandra Soto PA Digital mucous cyst of left hand from Last 3 Months Social History Tobacco Use Types Packs/Day Years Used Date Smoking Tobacco: Former Cigarettes Smokeless Tobacco: Never Alcohol Use Standard Drinks/Week Comments No 0 (1 standard drink = 0.6 oz pur e alcohol) Comments Unknown Sex and Gender Information Value Date Recorded Sex Assigned at Not on file Legal Sex Female 8:05 AM EST Gender Identity Not on file Sexual Orientation Not on file Obstetrics History Plan of Treatment Upcoming Encounters Date Type Department Care Team ([facility] st Contact Info) Description 06/21/2025 9:00 AM EDT Office Visit Orthopedic Surgery [address] [id number] Juan Francisco Harris MD [address] [place] [id number] Health Maintenance Due Date Last Done Comments Breast Cancer Screening 1950 Hepatitis A Vaccines (1 of 2 - Risk 2-dose series) 1969 Hepatitis B Vaccines (1 of 3 - Risk 3-dose series) 2010 Depression Screening 09/21/2024 COVID-19 Vaccine (10 - Pfizer risk 2023- season) 2024 06/17/2024, 07/02/2023, 01/30/2023, Additional history exists Colorectal Cancer Screening: Colonoscopy 03/27/2025 Falls Risk Assessment 03/27/2025 Hepatitis C Screening 03/27/2025 Osteoporosis Screening (Bone Density Screening) 03/27/2025 Social Influencers of Health Screening 03/27/2025 Hypertension/CHF/CAD Annual BMP Blood Test 04/28/2025 Influenza Vaccine (#1) 2025 , 06/01/2023, 05/30/2022, Additional history exists DTaP,Tdap,and Td Vaccines (3 - Td or Tdap) 12/15/2028 12/15/2018, 09/21/2011 Cholesterol Screening (Lipid Panel) 01/25/2030 01/25/2025 Zoster Vaccines Completed 03/25/2019, 11/21, 12/26/2013 RSV Immunization Adult Patients Completed 06/01/2023 Pneumococcal Vaccine: 50+ Years Completed 11/13/2023, 05/26/2023, 12/08/2016, Additional history exists HIB Vaccines Aged Out No longer eligi ble based on patient's age to complete this topic HPV Vaccines Aged Out No longer eligi ble based on patient's age to complete this topic IPV Vaccines Aged Out No longer eligi ble based on patient's age to complete this topic MMR Vaccines Aged Out No longer eligi ble based on patient's age to complete this topic Meningococcal ACWY Vaccine Aged Out N o longer eligible based on patient's age to complete this topic Meningococcal B Vaccine Aged Out No l onger eligible based on patient's age to complete this topic RSV Immunization Patients Under 20 months Aged Out No longer eligible based on patient's age to complete this topic Varicella Vaccines Aged Out No longer eligible based on patient's age to complete this topic Insurance [facility] Care Teams Roller Maker Relationship Specialty Start Date End Date Miguelina Flor MD [address] [facility] , [address] [facility] [place] PCP - General Internal Medicine 03/27/25
--- OUTSIDE RECORDS SUMMARY | 2025-05-15 07:41 | XMS_ITS | Encounter Summary ---
Author Organization [facility] Address [address] [facility] [address] [place] [address] Phone Care Team Providers Care Retina Subspecialist Name Role Phone Miguelina Soliman MD Primary Care Provid er Reason for Referral * - New Request Specialty Diagnoses / Procedures Referred By Ezra chapa Referred To Contact Radiology Diagnoses Stenosis of iliac artery Procedures US Aorta Duplex Complete Leonel Torrez DO [address] [address] Phone: tel: fax: [email or web address] Referral ID Status Reason Start Date Expiration Date V isits Requested Visits Authorized [id number] New Request 01/11/2025 1 1 Encounter Details Date Type Department Care Team (Late st Contact Info) Description 01/11/2025 Ancillary Orders [facility] [address] 3rd [place] [address] eLonel Torrez DO [address] [address] [email or web address] Stenosis of iliac artery (Primary Dx) Social History Tobacco Use Types Packs/Day Years Used Date Smoking Tobacco: Never Smokeless Tobacco: Never Alcohol Use Standard Drinks/Week Comments Never 0 (1 standard drink = 0.6 oz pur e alcohol) Home Health Assessment: Transportation Answer Date Recorded Lack of Transportation (Medical) No 12/04/2023 Lack of Transportation (Non-Medical) No 12/04/2023 Patient Unable or Declines to Respond No 12/04/2023 Education Answer Date Recorded Are you interested in more education? Not on madonna e 01/16/2023 Are you concerned about learning? Not on file 01/16/2023 No 01/16/2023 No 01/16/2023 Digital Access Answer Date Recorded No 02/14/2023 No 02/14/2023 Reliable internet access at home? Not on file 02/14/2023 Device with a working camera? Not on file Comments No Sex and Gender Information Value Date Recorded Sex Assigned at Not on file Legal Sex Female 9:01 AM EST Gender Identity Not on file Sexual Orientation Not on file documented as of this encounter Plan of Treatment Upcoming Encounters Date Type Department Care Team (Late st Contact Info) Description 07/27/2025 7:15 AM EST Appointment [facility] [place] [address] [place] [address] [place] [address] Leonel Torrez, DO [address] [place] [address] [place] [phone] [email or web address] 07/27/2025 8:00 AM EST Appointment [facility] [place] Morales [address] [place] [address] Leonel Torrez, DO [address] [place] [address] [place] [address] 08/07/2025 7:15 AM EST Office Visit [facility] [address] [place] [address] [place] [address], [address] [address] Leonel Torrez, DO [address] [place] [address] [place] [address] documented as of this encounter Results * US Aorta Duplex Complete (01/11/2025 9:25 AM EDT) Right EFREN 287.00 cm/sec Left EFREN 206.00 cm/sec Anatomical Region Laterality Modality Aorta Ultrasound Narrative 01/16/2025 12:15 PM EDT Aorta: Prox: 61cm/sec Mid: 123cm/sec Distal: 34cm/sec Right Common Iliac Artery: Prox: 129cm/sec Mid: 287* Distal: 64 cm/sec Monophasic Doppler waveform Right External Iliac Artery: Prox: 75 cm/sec Mid: 104, 92 cm/sec Distal: 93cm/sec Left Common Iliac Artery: Prox: *206cm/sec Mid: 182 Distal: 228 cm/sec Left External Iliac Artery: Prox: 158 cm/sec Mid: 144 cm/sec Distal: 111cm/sec Findings: No evidence of aortic or iliac aneurysms. Calcific plaque visualized in aorta and both iliac arterial systems. 2. Right common iliac stenosis 50-99% at mid segment. Monophasic Doppler waveform present. 3. Left common iliac stenosis 50-99% at origin. Abnormal study Moderately reduced MEDINA on the right 0.69 mildly reduced MEDINA on the left 0.94. Duplex shows abdominal aortic aneurysm measuring 3.8 cm with evidence of prior dissection. Duplex shows moderate stenosis in the common iliac arteries. There is monophasic flow throughout the right leg which makes me suspicious that the common iliac stenosis may be worse than seen on this study. Right SFA stent has mild in-stent restenosis. Left SFA stent has an area of severe stenosis. Compared to prior study from May 2024, the in-stent restenosis seems less on this study. I do not see prior ABIs performed. Abdominal Aorta AORTA Findings: plaque RIGHT COMMON ILIAC ARTERY Stenosis: >50% Spectral Doppler Waveform: monophasic LEFT COMMON ILIAC ARTERY Findings: stenosis Stenosis: >50% Spectral Doppler Waveform: monophasic Introductory Comments Techniques used for this study included: color flow Doppler and spectral waveform Doppler. us Leonel Torrez DO IMG US ABDOMEN Final Result documented in this encounter Visit Diagnoses Diagnosis PVD (peripheral vascular disease) Unspecified peripheral vascular disease Stenosis of iliac artery Atherosclerosis of [place] arteries of the extremities, unspecified Stenosis of iliac artery- Primary Atherosclerosis of [place] arteries of the extremities, unspecified documented in this encounter Care Teams Retina Subspecialist Relationship Specialty Start Date End Date Miguelina Soliman MD [address] [place] [address] PCP - General Internal Medicine 11/02/20 documented as of this encounter Additional Source Comments The information contained in this document represents components of the legal health record. It is not the complete legal health record.[facility]
--- OUTSIDE RECORDS SUMMARY | 2025-05-15 07:41 | XMS_ITS | Clinical Summary ---
Author Organization [facility] Address [address] [address] Care Team Providers Care Road Test Examiner Name Role Phone Miguelina Soliman MD Primary Care Provider [phone] Allergies Active Allergy Reactions Criticality Noted Date [...] Cancer Screening: Sigmoidoscopy 1999 Influenza Vaccine (#1) 2025 Pneumococcal Vaccine: 50+ Years Completed 05/26/2023, 12/08/2016 Hepatitis B Vaccine Aged Out No longe r eligible based on patient's age to complete this topic Insurance [facility] Medicare [employer] Medicare Care Teams Road Test Examiner Relationship Specialty Start Date End Date Miguelina Soliman MD [address] [place] PCP - General Internal Medicine 11/19/23
== END 2025-05-15 07:40 | disposition home or self-care (01) ==
LOC: HO.MAMMO 07:39
PROVIDERS: PCP Internal Medicine; Visit Provider Internal Medicine
DX: Z12.31 Encounter for screening mammogram for malignant neoplasm of breast (principal)
CPT/HCPCS: 77063; 77067

== ENCOUNTER → 2025-05-15 07:45 | Outpatient (BNV) | payer MEDICARE, SELFPAY | PROVIDERS: PCP Internal Medicine; Visit Provider Internal Medicine | DX: Z12.31 Encounter for screening mammogram for malignant neoplasm of breast (principal) | CPT/HCPCS: 77063; 77067 ==

== ENCOUNTER 2025-06-15 08:46 | Outpatient (REF) | payer MEDICARE, SELFPAY ==
--- OUTSIDE RECORDS SUMMARY | 2025-03-28 03:30 | XMS_ITS ---
Author Organization [facility] Address [address] [place] [address] Care Team Providers Care Wind Turbine Technician Name Role Phone Miguelina Soliman Primary Care Provider Unavailab Andrei Pereira Jr REASON FOR VISIT screening Encounters Encounter Location Date Provider Diagnosis [facility] Outpatient [address] [facility] [place] [id number] 03/28/2025 Andrei Dale Jr Plan Of Treatment No Information Progress Notes * ELIZABETH SIRISHA ADOB:[birth year] (74 yo F)Acc No.[id number]:03/28/2025 COLON WITH MAC Patient: SIRISHA LIN Provider: Sejal Dale MD :1950 A ge:74 Y S ex:Female Date:03/28/2025 Address:[address] [id number] Pcp:Miguelina Flor Subjective: * Chief Complaints: * 1 . Screening. * Medical History: Objective: * Vitals: Assessment: Plan: * Treatment: * * The named appointment provid er may or may not be the originator of this progress note, and it is not deemed complete until electronically signed by the appointment provider. Sign off status: Pending * Provider: Sejal Dale MD Date: 03/28/2025 Generated for Printi ng/Faxing/eTransmitting on: 06/15/2025 09:24 AM EDT
--- OUTSIDE RECORDS SUMMARY | 2025-06-15 09:24 | XMS_ITS | Patient Health Record ---
Author Organization [facility] Address [address] [facility] [address] [place] [address] Care Team Providers Care Embedded Systems Designer Name Role Phone Miguelina Soliman Primary Care Provider Unavailab Andrei Pereira Jr Unavailable Allergies Allergen (clinical drug ingredient) Drug/Non Drug Allergy documented on EMR Reaction Allergy Type Onset Date Status Substance with 8-onlkurh-0-methylgluta ryl-coenzyme A reductase inhibitor mechanism of action (substance) statins (uncoded) Unknown Allergy Active Results Component Value Reference Range Notes Pathology Reviewed date:03/30/2025 08:17:24 AM Interpretation: Performing Lab:[facility], [address] [place] [id number] Notes/Report: Reason For Referral Referring Provider First Name Jerman Referring Provider Last Name Vitor Referred Organization [facility] Referred Provider Andrei Dale Jr Referred Address [address] [facility],[address],[place], [place],[address], Referred Provider Specialty Gastroentero logy General Notes Simin Vogt 2024 02:58:00 PM >requested a nina referral from Dr. Dooley' office for office visit with Dr. Dale on 02-08-25, Simin Vogt 01/11/2025 10:38:58 AM > Per [facility] No referral required for this Nina plan. 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.02) Active confirmed Problem History of adenomatous polyp of colon (956771223) History of adenomatous polyp of colon (Z86.0101) Active confirmed Vital Signs Temperature 98.0 degrees Fahrenheit 02/08/2025 Blood pressure diastolic 01 mm Hg 02/08/2025 Height 67 in 02/08/2025 Blood pressure systolic 001 mm Hg 02/08/2025 Weight 193.4 lbs 02/08/2025 BMI 30.29 kg/m2 02/08/2025 Encounters Encounter Location Date Provider Diagnosis [facility] Outpatient [address] [place] [phone] 03/28/2025 Andrei Dale Jr [facility] [address] [place] [address] 02/08/2025 Andrei Dale Jr Colon cancer screening Z12.11 ; terminal press operator (current) use of anticoagulants Z79.01 and History of adenomatous polyp of colon Z86.0101 [facility] [address] [place] [address] 03/30/2025 Andrei Dale Jr Assessments Encounter Date Diagnosis (ICD Code) Assessment Notes Treatment Notes Treatment Clinical Notes Section Notes 02/08/2025 Colon cancer screening (ICD-10 - Z12.11) We discussed colonoscopy today. We discussed risks and benefits of the procedure today. She understands these and agrees to proceed. She is advised to stop Xarelto 3 days before the procedure. 02/08/2025 [facility] (current) use of anticoagulants (ICD-10 - Z79.01) [...] Name Order Date COLONOSCOPY 04/08/2018 COLONOSCOPY 02/08/2025 Insurance Providers Payer Name Payer Address Payer Phone Subscriber Number Group Number Insured Name Patient Relationship to Insured Coverage Start Date Coverage End Date [employer] [address] [place] [phone] [id number] SIRISHA VERDIN Self - patient is the [...]
--- OUTSIDE RECORDS SUMMARY | 2025-06-15 09:24 | XMS_ITS | Encounter Summary ---
Author Organization [facility] Address [address] [facility] [address] [place] [address] Phone Care Team Providers Care Injection Molding Supervisor Name Role Phone Miguelina Soliman MD Primary Care Provid er Reason for Referral * - New Request Specialty Diagnoses / Procedures Referred By Ezra chapa Referred To Contact Radiology Diagnoses Stenosis of iliac artery Procedures US Aorta Duplex Complete Leonel Torrez DO [address] [address] Phone: tel: fax: mailto:[email or web address] Referral ID Status Reason Start Date Expiration Date V isits Requested Visits Authorized [id number] New Request 01/11/2025 1 1 Encounter Details Date Type Department Care Team (Late st Contact Info) Description 01/11/2025 Ancillary Orders [facility] [address] 3rd [place] [address] Leonel Torrez DO [address] [address] [email or web address] Stenosis of iliac artery (Primary Dx) Social [...] 07/27/2025 7:15 AM EST Appointment [facility] [place] [address] [place] [address] [place] [address] Leonle Torrez, DO [address] [place] [address] [place] [address] [email or web address] 07/27/2025 8:00 AM EST Appointment [facility] [address] [place] [address] Leonel Torrez, DO [address] [place] [address] [place] [phone] [email or web address] 08/07/2025 7:15 AM EST Office Visit [facility] [address] [place] [address], [address] [address] Leonel Torrez, DO [address] [place] [address] [place] [address] [email or web address] documented as of this encounter Results * [...] disease Stenosis of iliac artery Atherosclerosis of circle arteries of the extremities, unspecified Stenosis of iliac artery- Primary Atherosclerosis of circle arteries of the extremities, unspecified documented in this encounter Care Teams Injection Molding Supervisor Relationship Specialty Start Date End Date Miguelina Soliman MD [address] [place] [address] PCP - General Internal Medicine 11/02/20 documented as of this encounter Additional Source Comments The information contained in this document represents components of the legal health record. It is not the complete legal health record.[facility]
--- OUTSIDE RECORDS SUMMARY | 2025-06-15 09:24 | XMS_ITS | Encounter Summary ---
Author Organization [facility] Address [address] [address] Phone Care Team Providers Care Manager Law Name Role Phone Miguelina Soliman MD Primary Care Provid er Encounter Details Date Type Department Care Team (Late st Contact Info) Description 11/20/2020 Procedure Pass [facility] [address] [place] [address] Social History Tobacco Use Types Packs/Day Years Used Date Smoking Tobacco: Never Smokeless Tobacco: Never Alcohol Use Standard Drinks/Week Comments Never 0 (1 standard drink = 0.6 oz pur e alcohol) Comments No Sex and Gender Information Value Date Recorded Sex Assigned at Not on file Legal Sex Female 9:01 AM EST Gender Identity Not on file Sexual Orientation Not on file documented as of this encounter Plan of Treatment Upcoming Encounters Date Type Department Care Team (Late st Contact Info) Description 07/27/2025 7:15 AM EST Appointment [facility] [place] [address] [place] [address] Leonel Torrez DO 22 [facility] [address] [place] [address] 07/27/2025 8:00 AM EST Appointment [facility] [place] [address] [place] [address] Leonel Torrez, DO 22 [facility] [address] [place] [address] 08/07/2025 7:15 AM EST Office Visit [facility] [address] Floor, [address] [place] [address] Leonel Torrez, DO 22 [facility] [address] [place] [address] documented as of this encounter Visit Diagnoses Not on filedocumented in this encounter Care Teams Manager Law Relationship Specialty Start Date End Date Miguelina Soliman MD [address] [place] [address] PCP - General Internal Medicine 11/02/20 documented as of this encounter Additional Source Comments The information contained in this document represents components of the legal health record. It is not the complete legal health record.[facility]
--- OUTSIDE RECORDS SUMMARY | 2025-06-15 09:24 | XMS_ITS | Encounter Summary ---
Author Organization [facility] Address [address] [facility] [address] [place] [address] Phone Care Team Providers Care Hand Fretted Instrument Maker Name Role Phone Miguelina Soliman MD Primary Care Provid er Reason for Referral * - New Request Specialty Diagnoses / Procedures Referred By Ezra chapa Referred To Contact Radiology Diagnoses PVD (peripheral vascular disease) Procedures US Lower Extremity Arteries (MEDINA) [employer] [facility] Leonel Torrez DO [address] [address] Phone: tel: fax: mailto:[email or web address] Referral ID Status Reason Start Date Expiration Date V isits Requested Visits Authorized [id number] New Request 01/11/2025 1 1 Encounter Details Date Type Department Care Team (Late st Contact Info) Description 01/11/2025 Ancillary Orders [facility] [address] 3rd [place] [address] Leonel Torrez DO 22 [facility] [address] [place] [phone] [email or web address] PVD (peripheral vascular disease) (Primary Dx) Social History Tobacco Use Types [...] 07/27/2025 7:15 AM EST Appointment [facility] [place] [address] [address] [place] [address] Leonel Torrez, DO [address] [place] [address] [email or web address] 07/27/2025 8:00 AM EST Appointment [facility] [place] [address] [place] [address] Leonel Torrez, DO [address] [place] [address] [place] [address] 08/07/2025 7:15 AM EST Office Visit [facility] [address] [place] [address], [address] [address] Leonel Torrez, DO [address] [place] [address] documented as of this encounter Results * US Lower Extremity Arteries (MEDINA) Physio Limited Unilat (01/11/2025 9:25 AM EDT) Arm 158 mmHg Posterior Tibial 110 mmHg Posterior Tibial Index 0.70 Dorsalis Pedis 80 mmHg Dorsalis Pedis Index 0.51 Posterior Tibial 150 mmHg Posterior Tibial Index 0.95 Dorsalis Pedis 120 mmHg Dorsalis Pedis Index 0.76 Anatomical Region Laterality Modality Ultrasound Narrative 01/16/2025 12:15 PM EDT Right Side: Ankle/Brachial index on the right side is 0.69 with a monophasic Doppler waveform. Left Side: Ankle/Brachial index on the left side is 0.94 with a monophasic Doppler waveform. Abnormal study Moderately reduced MEDINA on the right 0.69 mildly reduced MEDINA on the left 0.94. Duplex shows abdominal aortic aneurysm measuring 3.8 cm with evidence of prior dissection. Duplex shows mild to moderate stenosis in the common iliac arteries. [...] I do not see prior ABIs performed. us Leonel Coteoleenrique FALCON CV US VASCULAR Final Result documented in this encounter Visit Diagnoses Diagnosis PVD (peripheral vascular disease) Unspecified peripheral vascular disease Stenosis of iliac artery Atherosclerosis of [place] arteries of the extremities, unspecified PVD (peripheral vascular disease)- Primary Unspecified peripheral vascular disease documented in this encounter Care Teams Hand Fretted Instrument Maker Relationship Specialty Start Date End Date Miguelina Soliman MD [address] [place] [address] PCP - General Internal Medicine 11/02/20 documented as of this encounter Additional Source Comments The information contained in this document represents components of the legal health record. It is not the complete legal health record.[facility]
[2025-06-15 09:25] LABS: Hematocrit 38.3 % (37.0-47.0); Hemoglobin 13.3 g/dl (12.0-16.0); Imm Gran Abs Auto 0.00 X10*3/uL (0.00-0.03); Imm Gran Pct Auto 0.0 % (0.0-0.4); Lymphocytes Absolute Auto 2.4 X10*3/uL (1.2-4.9); MANUAL DIFF FLAG SCAN; Mean Corpuscular HGB Conc 34.7 g/dl (31.0-35.0); Mean Corpuscular Hemoglobin 30.6 pg (27.0-33.0); Mean Corpuscular Volume 88.0 fL (80.0-98.0); NRBC Abs Auto 0.000 X10*3/uL (0.0-0.012); NRBC Pct Auto 0.0 /100WBC (0.0-0.2); Platelet Count 233 X10*3/uL (160-400); Red Blood Count 4.35 X10*6/uL (4.20-5.50); SCAN SMEAR FLAG 1; White Blood Count 3.7 X10*3/uL (4.8-10.8)
--- OUTSIDE RECORDS SUMMARY | 2025-06-15 09:25 | XMS_ITS | Clinical Summary ---
Author Organization [facility] Address [address] [place] [address] Phone Care Team Providers Care Spiral Tube Winder Helper Name Role Phone Miguelina Soliman MD Primary Care Provid er Allergies Active Allergy Reactions Criticality Noted Date Comments Apixaban 10/08/2023 Ibuprofen Low 09/18/2023 Umdugwt-Sdb-Msd Reductase Inhibitors Anaphylaxis High 11/06/2020 Medications traMADoL (ULTRAM) 50 mg tablet Take 50 mg by mouth every 6 (six) hours as needed for pain (specific location in comments). 10/07/19 24 Active acetaminophen (TYLENOL) 325 mg tablet Take 650 mg by mouth every 4 (four) hours as needed for pain (specific location in comments). 10/07/19 24 Active buPROPion (WELLBUTRIN XL) 150 MG ER 24 hr tablet Take 150 mg by mouth every morning. 10/07/19 24 Active lidocaine (LIDO SARI) 4 % Place 1 patch onto the skin daily. 10/23/19 24 Active albuterol 90 mcg/actuation inhaler INHALE 2 PUFFS EVERY 6 HOURS NEEDED FOR SHORTNESS OF BREATH OR WHEEZING FOR 30 DAYS 10/20/19 24 Active predniSONE (DELTASONE) 5 MG tablet 2.5 12/03/19 24 Active ACTEMRA ACTPEN 162 mg/0.9 mL subcutaneous pen injection 12/09/19 24 Active vancomycin (VANCOCIN) 125 MG capsule TAKE 1 CAPSULE BY MOUTH 4 TIMES A DAY FOR 10 DAYS 11/30/19 24 Active lisinopril (PRINIVIL,ZESTRIL) 10 MG tabletIndications: Hypertension, unspecified type Take 3 tablets (30 mg total) by mouth daily. 270 tablet 3 06/03/20 24 Active abatacept (ORENCIA CLICKJECT) 125 mg/mL subcutaneous auto-injector Active clopidogrel (PLAVIX) 75 mg tablet Active nitrofurantoin (MACROBID) 100 MG capsule Active ondansetron (ZOFRAN-ODT) [address] 1 TABLET ON TOP OF THE TONGUE EVERY 8 HOURS NEEDED Active potassium chloride (MICRO-K) 10 mEq CR capsule TAKE 1 CAPSULE BY MOUTH EVERY DAY FOR 5 DAYS Active rivaroxaban (XARELTO) 20 mg Tab Take 1 tablet (20 mg total) by mouth daily. 90 tablet 3 12/27/19 25 Active carvedilol (COREG) 6.25 MG tablet Take 1 tablet (6.25 mg total) by mouth 2 (two) times a day with meals. 180 tablet 3 12/27/19 25 Active lisinopril (PRINIVIL,ZESTRIL) 30 MG tablet Take 40 mg by mouth. 20 mg am, 20 pm 11/23/19 25 Active evolocumab (REPATHA) 140 mg/mL subcutaneous syringe Inject 1 mL (140 mg total) under the skin every 14 (fourteen) days. 6 mL 3 03/16/20 25 Active nitroglycerin (NITROSTAT) 0.[address] 0.4 mg under the tongue every 5 (five) minutes as needed for chest pain. Discontin ued(Thera py Completed /No Longer Necessary ) denosumab (PROLIA) 60 mg/mL Syrg subcutaneous syringe Inject 60 mg under the skin once. 6 qmonths Discontin ued(Thera py Completed /No Longer Necessary ) amLODIPine (NORVASC) 5 MG tablet Take 5 mg by mouth daily. Discontin ued(Thera py Completed /No Longer Necessary ) etanercept (ENBREL) 25 mg (1 mL) vial kit Inject 25 mg under the skin once a week. Discontin ued(Thera py Completed /No Longer Necessary ) Active Problems Problem Noted Date Diagnosed Date Arrhythmia 12/22/2023 Assessment & Plan (07/12/2024 9:52 AM EDT): This lady has PAF and takes oral anticoagulation for it with no bleeding complications Assessment & Plan (03/22/2024 8:28 AM EDT): She has PAF protected with Pradaxa at this time currently she is in normal sinus rhythm today with a heart rate of 71 bpm Atherosclerosis of [place] co ronary artery of [place] heart without angina pectoris 12/22/2023 Assessment & Plan (01/24/2025 10:06 AM EDT): Completely asymptomatic from the coronary disease standpoint Assessment & Plan (07/12/2024 9:52 AM EDT): No angina or cardiovascular symptoms whatsoever Assessment & Plan (03/22/2024 8:28 AM EDT): Asymptomatic LDL should be less than 70 Hypertension 12/22/2023 Assessment & Plan (02/10/2025 8:14 AM EDT): Mildly elevated today she is going to try to lose some weight and get to the goal of less than 130 Assessment & Plan (01/24/2025 10:06 AM EDT): Elevated today but recheck was normal and she tells me all of her blood pressure readings at home are normal Assessment & Plan (07/12/2024 9:52 AM EDT): High here but when she checks it at home all of her readings are to the guidelines. Assessment & Plan (03/22/2024 8:29 AM EDT): She has no evidence of renal artery stenosis blood pressure is quite labile I am cautiously increasing lisinopril by 10 mg in the evening time leaving everything else alone PAF (paroxysmal atrial fibrillation) 12/22/2023 Assessment & Plan (02/10/2025 8:14 AM EDT): She is currently on Xarelto with no bleeding complications and currently in normal sinus rhythm Assessment & Plan (12/22/2023 12:09 PM EDT): Currently in normal sinus rhythm she is on oral anticoagulation for this Peripheral arterial disease with history of revascularization 12/22/2023 Assessment & Plan (02/10/2025 8:13 AM EDT): This patient has had a revascularization procedure in her legs that I performed we need to get her LDL way down it has been difficult due to a combination of genetics which are not on her side and her diet. We talked about all of this today. I will repeat her studies in 4 months time I will see her thereafter in follow-up. Assessment & Plan (01/24/2025 10:06 AM EDT): No claudication at all we will follow closely with ultrasounds twice a year. 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 Assessment & Plan (12/22/2023 12:10 PM EDT): 50 to 70% narrowed bilaterally we will recheck them twice a year Encounters Date Type Department Care Team Description 03/17/2025 [facility] [address], [address] [place] [address] Rosemary Hawkins MA from Last 3 Months Social History Tobacco Use Types Packs/Day Years Used Date Smoking Tobacco: Never Smokeless Tobacco: Never Tobacco Cessation:Counseling Given: Not Answered Alcohol Use Standard Drinks/Week Comments Never 0 [...] Sign Reading Time Taken Comments Blood Pressure 150/82 02/10/2025 7:35 AM EDT Pulse 79 02/10/2025 7:35 AM EDT Temperature 36.5 C (97.7 F) 12/04/2023 10:17 AM EDT Respiratory Rate 18 12/04/2023 10:17 AM EDT Oxygen Saturation 96% 02/10/2025 7:35 AM EDT Inhaled Oxygen Concentration - - Weight 83.5 kg (184 lb) 02/10/2025 7:35 AM EDT Height 167.6 cm (5' 5.98 ) 02/10/2025 7:35 AM ED T Body Mass Index 29.71 02/10/2025 7:35 AM EDT Plan of Treatment Upcoming Encounters Date Type Department Care Team (Late st Contact Info) Description 07/27/2025 7:15 AM EST Appointment [facility] [address] [place] [address] Leonel Torrez, 22 [facility] [address] [place] [address] 07/27/2025 8:00 AM EST Appointment [facility] [place] [address] [place] [address] Leonel Torrez, DO 22 [facility] [address] [place] [address] 08/07/2025 7:15 AM EST Office Visit [facility] [address] Floor, [address] [place] [address] Leonel Torrez, DO 22 [facility] [address] [place] [address] Health Maintenance Due Date Last Done Comments CREATININE LEVEL 1950 POTASSIUM LEVEL 1950 DEPRESSION SCREENING 1962 HEPATITIS C SCREENING 1968 MAMMOGRAM 1990 COLOGUARD 1995 COLONOSCOPY 1995 COLORECTAL CANCER SCREENING 1995 FIT TEST 1995 FOBT 1995 SIGMOIDOSCOPY 1995 VIRTUAL COLONOSCOPY 1995 RSV VACCINE (1 - Risk 60-74 years 1-dose series) 2010 OSTEOPOROSIS SCREENING INITIAL (ONE-TIME) 2015 COVID-19 VACCINE (3 - Pfizer risk series) 01/13/2021 12/16/2020, 11/25/2020 INFLUENZA VACCINE (#1) 2025 9, 06/17/2018, 06/10/2016 BLOOD PRESSURE 08/13/2025 02/10/2025 LIPID PANEL 01/25/2026 01/25/2025 Adult Td,Tdap Booster 12/15/2028 12/15/2018 PNEUMOCOCCAL VACCINES (50+ years) Completed 12/08/2016, 12/19/2015, 10/29/2015, Additional history exists ZOSTER VACCINES Completed 03/25/2019, 11/21, 12/26/2013 SMOKING STATUS SCREENING (Once After 26 Yrs) Completed 02/10/2025 HEPATITIS A VACCINES Aged Out No long er eligible based on patient's age to complete this topic HIB VACCINES Aged Out No longer eligi ble based on patient's age to complete this topic MENINGOCOCCAL VACCINES (ACWY) Aged Out No longer eligible based on patient's age to complete this topic MENINGOCOCCAL VACCINES (B) Aged Out N o longer eligible based on patient's age to complete this topic Medical Devices Implanted Type Area Player Manager Device Identifier Shelf Expiration Date Model / Serial / Lot Stent Stent Bilateral: Leg Procedures Procedure Name Priority Date/Time Associated Diagnosis Comments LIPID PANEL Routine 01/25/2025 8:18 AM EDT Atherosclerosis of [place] coronary artery of [place] heart without angina pectoris from Last 3 Months or Most Recently Relevant to Health Maintenance Results * (ABNORMAL) Lipid panel (01/25/2025 8:18 AM EDT) HDL 72 mg/dL [facility] Comment: Interpretation <40 mg/dL: Low HDL cholesterol (major risk factor for CHD) Greater than or equal to 60 mg/dL: High HDL cholesterol ( negative risk factor for CHD) HDL - cholesterol is affected by a number of factors, e.g. smoking, excerise, hormones, sex and age. CHOLESTEROL 300(H) 0 - 240 mg/dL [facility] TRIGLYCERIDES 124 30 - 160 mg/dL [facility] LDL 203(H) 50 - 129 mg/dL [facility] Comment: LDL levels in terms of risk for coronary heart disease: <100 mg/dL: Optimal 100-129 mg/dL: Near or above optimal 130-159 mg/dL: Borderline high 160-189 mg/dL: High >190 mg/dL: Very High CARDIAC RISK RATIO 4.2 3.3 - 4.4 [facility] Blood 01/25/2025 8:18 AM EDT 01/25/2025 8:23 AM EDT us Leonel Torrez DO LAB BLOOD ORDERABLES Final Re sult [facility] [address] [place] [address] from Last 3 Months or Most Recently Relevant to Health Maintenance Insurance [employer]PL[employer]EMENT [place]ED AWAN [id number] [employer] [place] [id number] [place] [phone] Advance Directives For more information, please contact: [phone] (9AM - 5PM [facility], Thursday-Thursday) * Full Code (Latest Code Status on File) Date Activated Date Inactivated Comments 11/20/2020 7:24 AM Question Answer Comments Code Status Confirmed With: Other (specify below ) Code Discussion Comments: Transcribed from order Care Teams Spiral Tube Winder Helper Relationship Specialty Start Date End Date Miguelina Soliman MD [address] [facility] [place] [id number] PCP - General Internal Medicine 11/02/20 Additional Source Comments The information contained in this document represents components of the legal health record. It is not the complete legal health record.[facility]
--- OUTSIDE RECORDS SUMMARY | 2025-06-15 09:25 | XMS_ITS | Clinical Summary ---
Author Organization [facility] Facility Address [address] [address] Care Team Providers Care Optimization Analyst Name Role Phone Miguelina Soliman MD Primary [...] patient's age to complete this topic Insurance [facility] Medicare [facility] Medicare Care Teams Optimization Analyst Relationship Specialty Start Date End Date Miguelina Soliman MD [address] [facility] [address] [place] PCP - General Internal Medicine 11/19/23
--- OUTSIDE RECORDS SUMMARY | 2025-06-15 09:25 | XMS_ITS | Clinical Summary ---
Author Organization [address] [facility] Address [address] [place] [address] Phone Care Team Providers Care Ingot Car Operator Name Role Phone Miguelina Flor MD Primary Care Provider [phone] Allergies Active Allergy Reactions Criticality Noted Date Comments Apixaban Diarrhea,Nausea And Vomiting High 04/28/2025 Hgwdxqz-Ivs-Tcl Reductase Inhibitors Anaphylaxis High 04/28/2025 Medications albuterol [...] 04/28/2025 10:00 AM EDT Consult Orthopedic Surgery [address] [phone] Alejandra Soto PA Digital mucous cyst of [...] Upcoming Encounters Date Type Department Care Team ([facility] st Contact Info) Description 06/21/2025 9:00 AM EDT Office Visit Orthopedic Surgery [address] [phone] Juan Francisco Harris MD [address] [place] [address] Health Maintenance Due Date Last Done Comments Breast Cancer Screening 1950 Hepatitis A Vaccines (1 of 2 - Risk 2-dose series) 1969 Hepatitis B Vaccines (1 of 3 - Risk 3-dose series) 2010 Depression Screening 09/21/2024 Colorectal Cancer Screening: Colonoscopy 03/27/2025 Falls Risk Assessment 03/27/2025 Hepatitis C Screening 03/27/2025 Osteoporosis Screening (Bone Density Screening) 03/27/2025 Social Influencers of Health Screening 03/27/2025 Hypertension/CHF/CAD Annual BMP Blood Test 04/28/2025 COVID-19 Vaccine (10 - Pfizer risk 2023- season) 2025 06/17/2024, 07/02/2023, 01/30/2023, Additional history exists Influenza Vaccine (#1) 2025 , 06/01/2023, 05/30/2022, [...] patient's age to complete this topic Insurance [facility] Care Teams Ingot Car Operator Relationship Specialty Start Date End Date Miguelina Flor MD 2 [facility] , [address] [facility] Physician Associ D/B/A: [facility] BRET Garcia PCP - General Internal Medicine 03/27/25
[2025-06-15 10:01] LABS: Alanine Aminotransferase 31 U/L (0-31); Albumin Level 4.1 g/dL (3.5-5.0); Alkaline Phosphatase 61 U/L (39-117); Anion Gap 10 (12-20); Aspartate Amino Transferase 53 U/L (5-31); Blood Urea Nitrogen 15 mg/dL (9-16); Calcium 9.3 mg/dL (8.4-10.2); Carbon Dioxide 25 mmol/L (22-29); Chloride 104 mmol/L (96-108); Cholesterol 290 mg/dL (<200); Estimated Glomerular Filt Rate > 60; HDL Cholesterol 64 mg/dL (>40); Potassium 4.1 mmol/L (3.3-5.1); Sodium 135 mmol/L (135-145); Total Protein 7.6 g/dL (6.5-8.0); Triglycerides 141 mg/dL (<150)
[2025-06-15 10:18] LABS: HBS Num1 0.09 mIU/mL (0-7.99); HBc Num1 0.07 S/CO (0.00-0.79); HBsAGNum1 0.29 S/CO (0.00-0.99); Hepatitis A Antibody IgM 0.14 Index (0-0.79); Hepatitis B Surface Antigen Negative (Negative); ~HepC Num1 0.08 S/CO (0.00-0.79); ~Hepatitis A Antibody IgM Nonreactive (Nonreactive); ~Hepatitis B Surface Antibody NONREACTIVE (Nonreactive); ~Hepatitis C Antibody Nonreactive (Nonreactive)
[2025-06-18 20:39] LABS: TS Negative Control Passed; TS Panel A 0; TS Panel B 0; TS Positive Control Passed; TSpotTB Negative (Negative)
[2025-06-21 14:18] LABS: Vitamin D 25-OH, D2 <4 ng/mL; Vitamin D 25-OH, D3 55 ng/mL; Vitamin D 25-OH, Total 55 ng/mL (30-100)
== END 2025-06-15 08:47 | disposition home or self-care (01) ==
LOC: HO.LAB 08:46
PROVIDERS: PCP Internal Medicine; Visit Provider Student in an Organized Health Care Education/Training Program
DX: M06.9 Rheumatoid arthritis, unspecified (principal); E55.9 Vitamin D deficiency, unspecified; Z11.3 Encounter for screening for infections with a predominantly sexual mode of transmission; Z13.6 Encounter for screening for cardiovascular disorders
CPT/HCPCS: 36415; 80053; 80061; 82164; 82306; 85025; 85652; 86140; 86481; 86704; 86706; 86709; 86803; 87340

== ENCOUNTER 2025-06-21 07:20 | Outpatient (AMB) | payer MEDICARE, SELFPAY ==
--- OUTSIDE RECORDS SUMMARY | 2025-03-28 03:30 | XMS_ITS ---
Author Organization [facility] Address [address] [place] [address] Care Team Providers Care Medical Record Librarians Teacher Name Role Phone Miguelina Soliman Primary Care Provider Unavailab Andrei Pereira Jr REASON FOR VISIT screening Encounters Encounter Location Date Provider Diagnosis [facility] Outpatient [address] [facility] [place] [id number] 03/28/2025 Andrei Dale Jr Plan Of Treatment No Information Progress Notes * ELIZABETH SIRISHA ADOB:[birth year] (75 yo F)Acc No.[id number]:03/28/2025 COLON WITH MAC Patient: SIRISHA LIN Provider: Sejal Dale MD :1950 A ge:74 Y S ex:Female Date:03/28/2025 Address[address] [id number] Pcp:Miguelina Flor Subjective: * Chief Complaints: * 1 . Screening. * Medical History: Objective: * Vitals: Assessment: Plan: * Treatment: * * The named appointment provid er may or may not be the originator of this progress note, and it is not deemed complete until electronically signed by the appointment provider. Sign off status: Pending * Provider: Sejal Dael MD Date: 0 03/28/2025 Generated for Maria Luisai ng/Fatimig/eTransmitting on: 1 07:23 AM EDT
--- OUTSIDE RECORDS SUMMARY | 2025-06-21 07:24 | XMS_ITS | Encounter Summary ---
Author Organization [facility] Address [address] [facility] [address] [place] [address] Phone Care Team Providers Care Nylon Hot Wire Cutter Name Role Phone Miguelina Soliman MD Primary Care Provid er Reason for Referral * - New Request Specialty Diagnoses / Procedures Referred By Ezra chapa Referred To Contact Radiology Diagnoses Stenosis of iliac artery Procedures US Aorta Duplex Complete Leonel Torrez DO [address] [address] Phone: tel: fax: [email or web address] Referral ID Status Reason Start Date Expiration Date V isits Requested Visits Authorized [id number] New Request 01/11/2025 1 1 Encounter Details Date Type Department Care Team (Late st Contact Info) Description 01/11/2025 Ancillary Orders [facility] [address]rd [place] [address] Leonel Torrez DO [address] [address] [email or web address] Stenosis of iliac artery (Primary Dx) Social [...] 07/27/2025 7:15 AM EST Appointment [facility] [place] [address] [place] [address] [place] [address] Leonel Torrez, DO [address] [place] [address] [place] [address] [email or web address] 07/27/2025 8:00 AM EST Appointment [facility] [place] [place] [address] Leonel Torrez, DO [address] [place] [address] [place] [address] [email or web address] 08/07/2025 7:15 AM EST Office Visit [facility] [address] [place] [address] [place] [address], [address] [address] Leonel Torrez, DO [address] [place] [address] [place] [address] [email or web address] documented as of this encounter Results * [...] disease Stenosis of iliac artery Atherosclerosis of [place] arteries of the extremities, unspecified Stenosis of iliac artery- Primary Atherosclerosis of [place] arteries of the extremities, unspecified documented in this encounter Care Teams Nylon Hot Wire Cutter Relationship Specialty Start Date End Date Miguelina Soliman MD [address] [place] [address] PCP - General Internal Medicine 11/02/20 documented as of this encounter Additional Source Comments The information contained in this document represents components of the legal health record. It is not the complete legal health record.[facility]
--- OUTSIDE RECORDS SUMMARY | 2025-06-21 07:24 | XMS_ITS | Clinical Summary ---
Author Organization [facility] Address [address] [place] [address] Phone Care Team Providers Care Routing Clerk Name Role Phone Miguelina Soliman MD Primary Care Provid er Allergies Active Allergy Reactions Criticality Noted Date Comments Apixaban 10/08/2023 Ibuprofen Low 09/18/2023 [facility]-Ofg Reductase Inhibitors Anaphylaxis High 11/06/2020 Medications traMADoL [...] heart rate of 71 bpm Atherosclerosis of [place] co ronary artery of [place] heart without angina pectoris 12/22/2023 Assessment & [...] we will recheck them twice a year Social History Tobacco Use Types Packs/Day Years [...] 07/27/2025 7:15 AM EST Appointment [facility] [place] [place] [address] Leonel Torrez DO 22 [facility] [address] [place] [address] 07/27/2025 8:00 AM EST Appointment [facility] [address] [place] [address] Leonel Torrez, DO 22 [facility] [address] [place] [address] 08/07/2025 7:15 AM EST Office Visit [facility] [address] [facility], [address] [place] [address] Leonel Torrez, 22 [facility] [address] [place] [address] [email or web address] Health Maintenance Due Date Last Done Comments [...] this topic Medical Devices Implanted Type Area Aircraft Fueler Device Identifier Shelf Expiration Date Model / Serial / Lot Stent Stent Bilateral: Leg Procedures Procedure Name Priority Date/Time Associated Diagnosis Comments LIPID PANEL Routine 01/25/2025 8:18 AM EDT Atherosclerosis of [place] coronary artery of [place] heart without angina pectoris from Last 3 Months or Most Recently Relevant to Health Maintenance Results * (ABNORMAL) Lipid panel (01/25/2025 8:18 AM EDT) HDL 72 mg/dL [facility] Comment: Interpretation <40 mg/dL: Low HDL cholesterol (major risk factor for CHD) Greater than or equal to 60 mg/dL: High HDL cholesterol ( negative risk factor for CHD) HDL - cholesterol is affected by a number of factors, e.g. smoking, excerise, hormones, sex and age. CHOLESTEROL 300(H) 0 - 240 mg/dL [facility] TRIGLYCERIDES 124 30 - 160 mg/dL [facility] LDL 203(H) 50 - 129 mg/dL [facility] Comment: LDL levels in terms of risk for coronary heart disease: <100 mg/dL: Optimal 100-129 mg/dL: Near or above optimal 130-159 mg/dL: Borderline high 160-189 mg/dL: High >190 mg/dL: Very High CARDIAC RISK RATIO 4.2 3.3 - 4.4 [facility] Blood 01/25/2025 8:18 AM EDT 01/25/2025 8:23 AM EDT us Leonel Torrez DO LAB BLOOD ORDERABLES Final Re sult [facility] [address] [place] [address] from Last 3 Months or Most Recently Relevant to Health Maintenance Insurance [employer] [place] [id number] Advance Directives For more information, please contact: [phone] (9AM - 5PM [facility], Thursday-Thursday) * Full Code (Latest Code Status on File) Date Activated Date Inactivated Comments 11/20/2020 7:24 AM Question Answer Comments Code Status Confirmed With: Other (specify below ) Code Discussion Comments: Transcribed from order Care Teams Routing Clerk Relationship Specialty Start Date End Date Miguelina Soliman MD [address] [place] [address] PCP - General Internal Medicine 11/02/20 Additional Source Comments The information contained in this document represents components of the legal health record. It is not the complete legal health record.[facility]
--- OUTSIDE RECORDS SUMMARY | 2025-06-21 07:24 | XMS_ITS | Encounter Summary ---
Author Organization [facility] Address [address] [address] Phone Care Team Providers Care Customer Contact Sales Associate Name Role Phone Miguelina Soliman MD Primary Care Provid er Encounter Details Date Type Department Care Team (Late st Contact Info) Description 11/20/2020 Procedure Pass [facility] [address] [place] [address] Social History Tobacco Use Types Packs/Day Years [...] 07/27/2025 7:15 AM EST Appointment [facility] [place] [address] [place] [address] Leonel Torrez DO 22 [facility] [address] [place] [address] 07/27/2025 8:00 AM EST Appointment [facility] [place] [address] [place] [address] Leonel Torrez, DO [address] [facility] [address] [place] [address] 08/07/2025 7:15 AM EST Office Visit [facility] [address] Floor, [address] [place] [address] Leonel Torrez, DO [address] [facility] [address] [place] [address] documented as of this encounter Visit Diagnoses Not on filedocumented in this encounter Care Teams Customer Contact Sales Associate Relationship Specialty Start Date End Date Miguelina Soliman MD [address] [place] [address] PCP - General Internal Medicine 11/02/20 documented as of this encounter Additional Source Comments The information contained in this document represents components of the legal health record. It is not the complete legal health record.[facility]
--- OUTSIDE RECORDS SUMMARY | 2025-06-21 07:24 | XMS_ITS | Patient Health Record ---
Author Organization [facility] Address [address] [place] [address] Care Team Providers Care Behavioral Health Care Manager Name Role Phone Miguelina Soliman Primary Care Provider Unavailab Andrei Pereira Jr Unavailable [phone] Allergies Allergen (clinical drug ingredient) Drug/Non Drug Allergy documented on EMR Reaction Allergy Type Onset Date Status Substance with 0-nicnyhq-7-methylgluta ryl-coenzyme A reductase inhibitor mechanism of action (substance) statins (uncoded) Unknown Allergy Active Results Component Value Reference Range Notes Pathology Reviewed date:03/30/2025 08:17:24 AM Interpretation: Performing Lab:[facility], [address] [place] [id number] Notes/Report: Reason For Referral Referring Provider First Name Jerman Referring Provider Last Name Vitor Referred Organization [facility] Referred Provider Andrei Dale Jr Referred Address [address],[place], [place],[address], Referred Provider Specialty Gastroentero logy General Notes Simin Vogt 2024 02:58:00 PM >requested a gene referral from Dr. Dooley' office for office visit with Dr. Dale on 02-08-25, Simin Vogt 01/11/2025 10:38:58 AM > Per [facility]. No referral required for this Dyer plan. Referral Priority Routine Medications Medication SIG [...] Problem Status W/U Status Risk Notes Problem [id number] Colon cancer screening (Z12.11) Active confirmed Problem Long-term current use of anticoagulant (192111900) correction (current) use of anticoagulants (Z79.01) Active confirmed Problem [id number] Encounter for current retirement use of antiplatelet drug (Z79.02) Active confirmed Problem History of adenomatous polyp of colon (432774703) History of adenomatous polyp of colon (Z86.0101) Active confirmed Vital Signs Temperature 98.0 degrees Fahrenheit 02/08/2025 Blood pressure diastolic 01 mm Hg 02/08/2025 Height 67 in 02/08/2025 Blood pressure systolic 001 mm Hg 02/08/2025 Weight 193.4 lbs 02/08/2025 BMI 30.29 kg/m2 02/08/2025 Encounters Encounter Location Date Provider Diagnosis [facility] [address] [place] [id number] 03/28/2025 Andrei Dale Jr [facility] [address] [place] [address] 02/08/2025 Andrei Dale Jr Colon cancer screening Z12.11 ; correction (current) use of anticoagulants Z79.01 and History of adenomatous polyp of colon Z86.0101 [facility] [address] [place] [address] 03/30/2025 Andrei Dale Jr Assessments Encounter Date Diagnosis (ICD Code) Assessment Notes Treatment Notes Treatment Clinical Notes Section Notes 02/08/2025 Colon cancer screening (ICD-10 - Z12.11) We discussed colonoscopy today. We discussed risks and benefits of the procedure today. She understands these and agrees to proceed. She is advised to stop Xarelto 3 days before the procedure. 02/08/2025 correction (current) use of anticoagulants (ICD-10 - Z79.01) [...] Date [employer] [address] [place] [address] [phone] SIRISHA VERDIN Self - patient is the [...]
--- OUTSIDE RECORDS SUMMARY | 2025-06-21 07:24 | XMS_ITS | Clinical Summary ---
Author Organization [address] [facility] Address [address] [place] [address] Phone Care Team Providers Care Director Of Early Childhood Name Role Phone Miguelina Flor MD Primary Care Provider [phone] Allergies Active Allergy Reactions Criticality Noted Date Comments Apixaban Diarrhea,Nausea And Vomiting High 04/28/2025 Ukhtzlg-Rky-Kqc Reductase Inhibitors Anaphylaxis High 04/28/2025 Medications albuterol [...] 04/28/2025 10:00 AM EDT Consult Orthopedic Surgery [address] [id number] Alejandra Soto PA Digital mucous cyst of [...] Upcoming Encounters Date Type Department Care Team ([facility] st Contact Info) Description 06/21/2025 9:00 AM EDT Office Visit Orthopedic Surgery [address] [phone] Juan Francisco Harris MD [address] [place] [phone] Health Maintenance Due Date Last Done Comments Colorectal Cancer Screening: Colonoscopy 1950 Hepatitis A Vaccines (1 of 2 - Risk 2-dose series) 1969 Hepatitis B Vaccines (1 of 3 - Risk 3-dose series) 2010 Depression Screening 09/21/2024 Falls Risk Assessment 03/27/2025 Hepatitis C Screening 03/27/2025 Osteoporosis Screening (Bone Density Screening) 03/27/2025 Social Influencers of Health Screening 03/27/2025 Hypertension/CHF/CAD Annual BMP Blood Test 04/28/2025 COVID-19 Vaccine ( season) 2025 06/17/2024, 07/02/2023, 01/30/2023, Additional history [...] patient's age to complete this topic Insurance MILO [employer] Care Teams Director Of Early Childhood Relationship Specialty Start Date End Date Miguelina Flor MD [address] [facility]A: [place] [facility] BRET Garcia PCP - General Internal Medicine 03/27/25
--- OUTSIDE RECORDS SUMMARY | 2025-06-21 07:24 | XMS_ITS | Encounter Summary ---
Author Organization [facility] Address [address] [facility] [facility] [address] [place] [address] Phone Care Team Providers Care Fuse Maker Name Role Phone Miguelina Soliman MD Primary Care Provid er Reason for Referral * - New Request Specialty Diagnoses / Procedures Referred By Ezra chapa Referred To Contact Radiology Diagnoses PVD (peripheral vascular disease) Procedures US Lower Extremity Arteries (MEDINA) [employer] [facility] Leonel Torrez DO [address] [address] Phone: tel: fax: [email or web address] Referral ID Status Reason Start Date Expiration Date V isits Requested Visits Authorized [id number] New Request 01/11/2025 1 1 Encounter Details Date Type Department Care Team (Late st Contact Info) Description 01/11/2025 Ancillary Orders [facility] [address] [place] [address] Leonel Torrez DO 22 [facility] [address] [place] [address] [email or web address] PVD (peripheral vascular disease) (Primary Dx) Social [...] 07/27/2025 7:15 AM EST Appointment [facility] [place] [address] [address] [place] [address] Leonel Torrez, DO [address] [place] [phone] [email or web address] 07/27/2025 8:00 AM EST Appointment [facility] [address] [place] [address] Leonel Torrez, DO [address] [place] [address] [place] [address] 08/07/2025 7:15 AM EST Office Visit [facility] [address] [place] [address], [address] [address] Leonel Torrez, DO [address] [place] [phone] documented as of this encounter Results * [...] disease Stenosis of iliac artery Atherosclerosis of flandreau arteries of the extremities, unspecified PVD (peripheral vascular disease)- Primary Unspecified peripheral vascular disease documented in this encounter Care Teams Fuse Maker Relationship Specialty Start Date End Date Miguelina Soliman MD [address] [place] [id number] PCP - General Internal Medicine 11/02/20 documented as of this encounter Additional Source Comments The information contained in this document represents components of the legal health record. It is not the complete legal health record.[facility]
--- NOTE | 2025-06-21 07:30 | A.OFFVIS_ITS ---
Vital Signs 06/21/25 07:38 Height 5 ft 7 in Weight 190 lb 11.198 oz BMI 29.9 BP 142/90 H Blood Pressure Location Lt brachial Position Sitting Pulse 68 Pulse Source Pulse Oximeter Pulse Oximetry (%) 98 Oxygen Delivery Method Room Air Intake Visit Reasons: Osteoporosis follow up and prolia inj Intake Note: Patient presents for Osteoporosis and Prolia injection follow up. Allergies Lsmrmgq-RYZ-JpW Reductase Inhibitor (UXLJNHI-WNR-KZD REDUCTASE INHIBITOR) Allergy (Severe, Verified 06/21/25 07:38) ANAPHYLACTIC apixaban (From Eliquis) Allergy (Intermediate, Verified 06/21/25 07:38) Vomiting HPI Comments Details: Patient is a 75-year-old female with labile hypertension, COPD, paroxysmal AFib, MGUS, sarcoidosis/seronegative RA and osteoporosis here today for follow up Interval History: Patient last seen 12/21/24 with sc - On Actemra 162mg every 2 weeks and Prolia 60mg SC every 6 months - With her daughter and doing well - No falls or fractures - No flares of disease Today - On Actemra 162mg every 2 weeks and Prolia 60mg SC every 6 months - With daughter - Continues to do well overall - Notes that about 7-8 days after Actemra she is gets downward spiral - AM stiffness, not prolonged Rheumatologic History: Seronegative rheumatoid arthritis/sarcoidosis Hydroxychloroquine for 18 months failed Humira -dates unknown failed Enbrel 03/2020-06/2021-discontinued due to active synovitis. Methotrexate- 03/2020-01/2022- increased LFTs- resolved once stopped. Kevzara- 07/11-03/2022- low absolute neutrophils Orencia-03/2022-present effective. DC 08/2023 due to septic shock 10/23 PNA Actemra 11/2023 effective. PDN tapered off 05/2024 Osteoporosis Alendronate-could not tolerate due to GI upset Prolia- March 2019- present Sarcoidosis Biopsy proven skin lesions. Following with Pulmonary. Gets regular CT scans every 6 months for pulmonary nodules. Recent CT chest showed few small nodules, patient however is not symptomatic, Humberto level increases while off DMARDs. Current Rheumatology Medication(s): Actemra 162 mg every 2 weeks sc Denosumab 60 mg sc every 6 months [facility] Medical History Sarcoidosis MGUS (monoclonal gammopathy of unknown significance) Sensorineural hearing loss Elevated cholesterol Rheumatoid arthritis PAD (peripheral artery disease) Bronchiolitis BRE (acute kidney injury) Rheumatoid arthritis involving multiple joints COPD (chronic obstructive pulmonary disease) Atrial fibrillation with rapid ventricular response Blood poisoning due to Streptococcus pneumoniae bacteria Septic shock due to streptococcal infection Acute hypoxic respiratory failure Type 2 HI (myocardial infarction) Metabolic acidosis Hyperphosphatemia Septic shock Uremic encephalopathy Ischemic hepatitis Hypoxia Pancreatitis, acute Hypomagnesemia Sarcoidosis Streptococcal pneumonia Xanthelasma Pulmonary nodules Mild recurrent major depression Emphysema lung Hip bursitis Depression Essential hypertension Surgical History History of vascular surgery Hx of thumb surgery Hx of breast surgery H/O colonoscopy Cochlear implant in place Xanthelasma of lower eyelid History of coronary angiogram Hx of left knee surgery H/O cataract removal with insertion of prosthetic lens H/O laminectomy Carpal tunnel syndrome on both sides Family History Mother Leukemia Father Diabetes Heart disease Brother Heart disease Other No family history of cancer Social History Household Members: Spouse Housing: House Are you a primary farm or ranch animal caretaker to a significant other at home: Yes (Son) Do you presently have visiting nurse or other home services: No Alcohol intake: current Alcohol intake frequency: holidays/special occasions only Alcohol type: wine Comment: bilateral wrist restraints--intubated Patient Tobacco Use Status: Former Tobacco user Tobacco use type: Cigarette e-Cigarette/Vaping Use: Never Used Second Hand Smoke Exposure: No Substance Use Type: Marijuana service: No Current occupational status: retired Cognitive needs: Yes (wheelchair, walker,) Hearing needs: No Vision needs: Yes (reading glasses) Review of Systems Const Details: Review of Systems Constitutional: Denies fever, chills, weight loss ENT: Denies vision changes, eye pain or eye redness, dental caries, dry mouth GI: Denies nausea, vomiting, diarrhea, abdominal pain, change in BM Pulm: Denies SOB, CABRAL, hemoptysis, wheezing Cards: Denies chest pain, palpitations Skin: Denies Raynaud's, rash, nail changes, photosensitivity, KNITTING MACHINE TENDER: Denies headaches, weakness, paresthesias, recurrent falls MSK: as per HPI All other systems reviewed and are unremarkable except noted above Physical Exam Exam Exam: Vital signs reviewed Physical Examination CONSTITUITIONAL Patient alert and cooperative. Well appearing and in no apparent painful distress MSK Hands * Right Hand: Able to make a fist. Swelling of the 4th digit (ring finger) with TTP of the 4th PIP, DIP and MCP. Also TTP of the 3rd MCP. Otherwise no TTP. * Left Hand: Able to make a fist. Generalized swelling but no tenderness to palpation of the MCPs, PIPs or DIPs. * Prominent Herbedens nodes noted bilaterally Wrists * Right Wrist: Full ROM to flexion and extension. No swelling or TTP * Left Wrist: Full ROM to flexion and extension. No swelling or TTP Elbows * Right Elbow: Full ROM. No swelling or TTP. No TTP of the medial epicondyle. No TTP of the lateral epicondyle * Left Elbow: Full ROM. No swelling or TTP. No TTP of the medial epicondyle. No TTP of the lateral epicondyle Shoulders * Right shoulder: Full ROM. No swelling noted. No TTP of the AC joint. No TTP of the subacromial bursa. No TTP of the posterior shoulder * Left shoulder: Full ROM. No swelling noted. No TTP of the AC joint. No TTP of the subacromial bursa. No TTP of the posterior shoulder Hip bursa: Tenderness to palpation bilaterally Knees * Right knee: Full ROM. No swelling noted. No TTP of the knee joint line. TTP of pes anserine bursa * Left knee: Full ROM. No swelling noted. No TTP of the knee joint line. TTP of pes anserine bursa. * Crepitations felt bilaterally Ankles * Right ankle: Good ankle dorsiflexion and plantar flexion. No swelling. No TTP of the ankle joint * Left ankle: Good ankle dorsiflexion and plantar flexion. No swelling. No TTP of the ankle joint Feet * Right foot: Negative squeeze test * Left foot: Negative squeeze test Tender points? * No tenderness to palpation of the bilateral trapezius, supraspinatus, anterior costochondral junctions, bilateral suboccipital muscle insertions SKIN No rashes Vital Signs: Last Vital Signs Pulse 68 06/21/25 07:38 BP 142/90 H 06/21/25 07:38 Pulse Ox 98 06/21/25 07:38 Oxygen Delivery Method Room Air 06/21/25 07:38 BMI result Body Mass Index 29.9 Office Meds Prolia 60 mg/mL subcutaneous syringe Performing Provider: Teresa Cleaning MD Performing Location: [facility] Administered by: Sophy Mccracken RN on 06/21/25 08:24 Dose Route Admin Location Dispensed Lot Number Expiration Date ND Plant Attendant 60 mg subcut left upper arm 1 mL [id number] 11/19/27 79752-180-92 [facility] EN Total Dispensed Waste 1 mL 0 % Results Reviewed Results Reviewed: Laboratory Tests 12/02/24 04/24/25 06/15/25 11:16 08:19 09:04 WBC 3.7 L RBC 4.35 Hgb 13.3 Hct 38.3 Plt Count 233 ESR 12 Sodium 135 Potassium 4.1 Chloride 104 Carbon Dioxide 25 BUN 15 Creatinine 0.75 Total Bilirubin 0.4 0.5 AST 53 H ALT 30 31 C-Reactive Protein < 0.10 Triglycerides 141 Cholesterol 290 H LDL Cholesterol, Calc 198 H HDL Cholesterol 64 Angiotensin Convert Enz 9 7 L 25-OH Vitamin D Total 68.9 Pending Laboratory Tests 06/15/25 09:04 Hepatitis A IgM Ab Nonreactive Hep Bs Antigen Negative Hep Bs Antibody NONREACTIVE Hep B Core Total Ab Nonreactive Hepatitis C Ab (EIA) Nonreactive TB Test (T-Spot) Com Negative CT Chest 03/2025 FINDINGS: LUNGS: Again seen are nodular, and tree in bud changes in the lungs, which appear stable since March 2024. MEDIASTINUM: The mediastinum is normal. Moderate vascular calcifications are seen in the thoracic aorta CORONARY ARTERY CALCIFICATION: Present PLEURA: There is no pleural effusion. No pleural mass or thickening. AXILLA: No lymphadenopathy. UPPER ABDOMEN: Small spleen with peripheral coarse calcifications demonstrate no change. OSSEOUS STRUCTURES: Moderate to severe degenerative disease is present in the thoracic spine with disc osteophyte complex narrowing the spinal canal at T6-7 and T8-9. No change. IMPRESSION: Stable tree-in-bud and nodular changes in the lungs since April 18, 2024. Per Fleischner Society recommendations, follow up CT chest without contrast in 2 years, and again 2 years after that. Small spleen with chronic coarse calcifications peripherally. Degenerative changes in thoracic spine with disc osteophyte complex narrowing the spinal canal at T6-7 and T8-9. DEXA 10/2024 FINDINGS: The bone mineral density of the lumbar spine is 1.486 with a T-score of 2.5, and a Z-score of 3.7. This represents a BMD change of 8.9% compared to the prior exam. This is statistically significant. The bone mineral density of the left total hip is 0.899 with a T-score of -0.9, and a Z-score of 0.4. This represents BMD change of 0.2% compared to the prior exam. This is not statistically significant. The bone mineral density of the left femoral neck is 0.883 with a T-score of -1.1, and a Z-score of 0.4. This represents BMD change of 0.2% compared to the prior exam. Assessment & Plan Assessment & Plan (1) Rheumatoid arthritis involving multiple joints: Comment: Humira -dates unknown Enbrel 03/2020-06/2021-discontinued due to active synovitis. Methotrexate- 03/2020-01/2022- increased LFTs- resolved once stopped. Kevzara- 07/11-03/2022- low absolute neutrophils Orencia 03/2022-present effective. DC 08/2023 due to septic shock 10/23 PNA Actemra 11/2023 effective. PDN tapered off 05/2024 Code(s): M06.9 - Rheumatoid arthritis, unspecified Category: Medical Plan: #Sarcoidosis/Seronegative inflammatory arthritis Patient is a 75-year-old female with sarcoidosis complicated by seronegative inflammatory arthritis and pulmonary nodules here today for follow up. On exam she still has swelling and TTP of MCPs and PIPs. Also notes waning of effect after 7 days. Will increase the frequency of Actemra Plan - Actemra 162mg every week SC - RTC 6 months - Labs before visit: CBC, CMP, ESR, CRP, lipid panel, HUMBERTO level (2) Osteoporosis: Comment: DEXA 10/2024: AP Spine 2.5, Left femur neck -1.1, Left femur total -0.9 DEXA 10/2022: AP Spine 1.5, Left femur neck -1.1, Left femur total -0.9 DEXA 10/2020: AP Spine 0.8, Left femur neck -1.2, Left femur total -0.9 Alendronate-could not tolerate due to GI upset Prolia- March 2019- present Code(s): M81.0 - Age-related osteoporosis without current pathological fracture Category: Medical Qualifiers: Osteoporosis type: age-related Presence of current pathological fract ure: without current pathological fracture Qualified Code(s): M81.0 - Age- related osteoporosis without current pathological fracture Plan: #Osteoporosis Patient with osteoporosis without falls or fractures. Doing well and tolerating her Prolia. Bone density done October shows improvement in AP spine bone density. Plan - s/p prolia today - RTC 6 months - Vitamin D with next lab draw (3) Encounter for monitoring tocilizumab therapy: Code(s): Z51.81 - Encounter for therapeutic drug level monitoring; Z79.620 - petroleum terminal plant operator (current) use of immunosuppressive biologic Plan: #Long-term Use of Tocilizumab Discussed the risks and benefits of tocilizumab with the management of this patient's rheumatic condition. ? Benefits include decreased pain, improved mortality, improved quality of life Risks include LFT abnormalities, elevated triglycerides, GI perforations Contraindicated in a patient with history of diverticulitis Monitoring: ?CBC, CMP, triglycerides (4) Encounter for monitoring denosumab therapy: Code(s): Z51.81 - Encounter for therapeutic drug level monitoring; Z79.620 - halfway (current) use of immunosuppressive biologic Plan: #Long-term use of Denosumab Discussed with patient the risks and benefits of denosumab (Prolia) for the management of their osteoporosis Benefits include improved bone density, decreased fracture risk Risks include rapid bone loss if denosumab stopped, osteonecrosis of the jaw especially in patients with poor oral hygiene/diabetes/use of glucocorticoids/age greater than 65 years, atypical femoral fractures, injection site reactions. Mild increased risk of infections due to RANKL on T helper cells, increased risk of hypocalcemia especially in CKD patients Keep vitamin-D at least 35 ng/mL Advised to delay non emergent dental procedures to toward the end of the 6 month cycle and if they plan to stop denosumab would need to continue antiresorptive to maintain the effects of denosumabe Plan I spent 30 minutes reviewing the record and labs, taking a history, examining the patient, discussing the treatment plan, ordering diagnostic work up and documenting in the medical record Orders: Orders AMB Denosumab Injection Practice Supplied Today Z. - Other dedicated intermodal truck driver (current) drug therapy Complete Blood Count Auto Diff 6 Months Z. - Other dedicated intermodal truck driver (current) drug therapy Lipid Panel 6 Months Z. - Other dedicated intermodal truck driver (current) drug therapy Comprehensive Met. Panel 6 Months Z. - Other dedicated intermodal truck driver (current) drug therapy C Reactive Protein 6 Months Z. - Other dedicated intermodal truck driver (current) drug therapy Erythrocyte Sedimentation Rate 6 Months Z. - Other dedicated intermodal truck driver (current) drug therapy Vitamin D 25-OH Total 6 Months Z. - Other detention (current) drug therapy Medications: Changed From Actemra ACTPen (tocilizumab) 162 mg (0.9 mL) subcut Q2W 1.8 mL 5RF NS M06.9 - Rheumatoid arthritis, unspecified To Actemra ACTPen 162 mg (0.9 mL) subcut QWEEK 3.6 mL 5RF NS M06.9 - Rheumatoid arthritis, unspecified Coding Level of Care Code Est Pt Level 4 (45485) Complex EM visit Add On G2211 Diagnoses Rheumatoid arthritis involving multiple joints M06.9 Age-related osteoporosis without current pathological fracture M81.0 Osteoporosis type: age-related Presence of current pathological fracture: without current pathological fracture Encounter for monitoring tocilizumab therapy Z51.81; Z79.620 Encounter for monitoring denosumab therapy Z51.81; Z79.620
[2025-06-21 07:38] VITALS: BP 142/90; PULSE 68; O2SAT 98; BMI 29.9
== END 2025-06-21 08:23 | disposition home or self-care (01) ==
LOC: HO.RHES 07:21
PROVIDERS: PCP Internal Medicine; Visit Provider Student in an Organized Health Care Education/Training Program
DX: M06.9 Rheumatoid arthritis, unspecified (principal); M81.0 Age-related osteoporosis without current pathological fracture; Z51.81 Encounter for therapeutic drug level monitoring; Z79.620 Long term (current) use of immunosuppressive biologic; Z79.899 Other long term (current) drug therapy
CPT/HCPCS: 99214; G2211

== ENCOUNTER → 2025-06-21 07:20 | Outpatient (BNVA) | payer MEDICARE, SELFPAY | PROVIDERS: PCP Internal Medicine; Visit Provider Student in an Organized Health Care Education/Training Program | DX: M06.09 Rheumatoid arthritis without rheumatoid factor, multiple sites (principal); M81.0 Age-related osteoporosis without current pathological fracture | CPT/HCPCS: 96372; 99212; J0897 ==

== ENCOUNTER 2025-08-10 07:49 | Outpatient (AMB) | payer MEDICARE, SELFPAY ==
--- OUTSIDE RECORDS SUMMARY | 2025-03-28 02:30 | XMS_ITS ---
Author Organization [facility] Address [address] [place] [address] Care Team Providers Care Spring Encaser Name Role Phone Miguelina Soliman Primary Care Provider Unavailab Andrei Pereira Jr [phone] REASON FOR VISIT screening Encounters Encounter Location Date Provider Diagnosis [facility] Outpatient [address] [facility] [place] [id number] 03/28/2025 Andrei Dale Jr Plan Of Treatment No Information Progress Notes * SIRISHA JOHNSON ADOB:[birth year] (75 yo F)Acc No.[id number]:03/28/2025 COLON WITH MAC Patient: DIANE LINIE Brian Provider: Sejal Dale MD :1950 A ge:74 Y S ex:Female Date:03/28/2025 Address[address] [id number] Pcp:Miguelina Flor Subjective: * Chief Complaints: * S creening Billing Information: * Procedure Codes: * The named appointment provid er may or may not be the originator of this progress note, and it is not deemed complete until electronically signed by the appointment provider. Sign off status: Pending * Provider: Sejal Dale MD Date: 0 03/28/2025 Generated for Maria Luisai ng/Fatimig/eTransmitting on: 10/10/2024 07:56 AM EST
--- OUTSIDE RECORDS SUMMARY | 2025-08-10 07:57 | XMS_ITS | Patient Health Record ---
Author Organization [facility] Address [address] [facility] [address] [place] [address] Care Team Providers Care Research Psychologist Name Role Phone Miguelina Soliman Primary Care Provider Unavailab Andrei Pereira Jr Unavailable [phone] Allergies Allergen (clinical drug ingredient) Drug/Non Drug Allergy documented on EMR Reaction Allergy Type Onset Date Status Substance with 3-diwbssi-1-methylgluta ryl-coenzyme A reductase inhibitor mechanism of action (substance) statins (uncoded) Unknown Allergy Active Results Component Value Reference Range Notes Pathology Reviewed date:03/30/2025 08:17:24 AM Interpretation: Performing Lab:[facility], [address] [place] [phone] Notes/Report: Reason For Referral Referring Provider First Name Jerman Referring Provider Last Name Vitor Referred Organization [facility] Referred Provider Andrei Dale Jr Referred Address [address] [facility],[address],[place], [place],[address], Referred Provider Specialty Gastroentero logy General Notes Simin Vogt 2024 02:58:00 PM >requested a nina referral from Dr. Dooley' office for office visit with Dr. Dale on 02-08-25, Simin Vogt 01/11/2025 10:38:58 AM > [place] [facility] No [place] required for this Nina plan. Referral Priority Routine Medications Medication SIG (Take, Route, Frequency, Duration) Notes Start Date End Date Status Prolia 60 MG/ML Solution Prefilled Syringe as directed Subcutaneous Active traMADol HCl 50 MG Tablet 1 tablet as ne eded Orally Once a day Active Vitamin D 1000 UNIT Capsule 1 capsule Orally Once a day Active Wellbutrin 75 MG Tablet 1 tablet Orally Once a day Active amLODIPine Besylate 5 MG Tablet 1 tablet Orally Once a day A ctive Lisinopril 40 MG Tablet 1 tablet Orally Once a day Active Carvedilol 6.25 MG Tablet 1 tablet with food Orally Twice a day Active Xarelto 10 MG Tablet 1 tablet with food Orally Once a day Active buPROPion HCl 75 MG Tablet 2 tablets Orally Twice a day Active Actemra 162 MG/0.9ML Solution Prefilled Syringe as directed Subcutaneous Act jan Cannabus Medical Marijuana CBD capsules daily Activ e Praluent 75 MG/ML Solution Auto-injector as directed Subcutaneous Active Immunizations Vaccine Route Administration Date Status Comme nts Influenza Unknown 05/31/2024 Administered Social History Tobacco Use: Social History Observation Description Date Details (start date - stop date) Former Smoker NA - NA Social History Drugs/Alcohol: Social Info Question Answer Notes Alcohol Screen Did you have a drink containing alcohol in the past year? Yes How often did you have a drink containing alcohol in the past year? Monthly or less (1 point) How many drinks did you have on a typical day when you were drinking in the past year? 1 or 2 drinks (0 point) How often did you have 6 or more drinks on one occasion in the past year? Never (0 point) Points 1 Interpretation Negative Tobacco Use: Social Info Question Answer Notes Tobacco Use/Smoking Patient is a former smoker How long has it been since you last smoked? 5-10 years Additional Details Category Social Info Options Details Miscellaneous: Marital status: Occupation: retired Problems Problem Type SNOMED Code ICD Code Onset Dates Problem Status W/U Status Risk Notes Problem Colon cancer screening (113687470) Colon cancer screening (Z12.11) Active confirmed Problem Long-term current use of anticoagulant (743869343) intermediate accountant (current) use of anticoagulants (Z79.01) Active confirmed Problem Long-term current use of antiplatelet drug (situation) (069587658934681) Encounter for current residential use of antiplatelet drug (Z79.02) Active confirmed Problem History of adenomatous polyp of colon (499350694) History of adenomatous polyp of colon (Z86.0101) Active confirmed Vital Signs Temperature 98.0 degrees Fahrenheit 02/08/2025 Blood pressure diastolic 01 mm Hg 02/08/2025 Height 67 in 02/08/2025 Blood pressure systolic 001 mm Hg 02/08/2025 Weight 193.4 lbs 02/08/2025 BMI 30.29 kg/m2 02/08/2025 Encounters Encounter Location Date Provider Diagnosis [facility] [address] [place] [phone] 03/28/2025 Andrei Dale Jr [facility] [address] [facility] [address] [place] [phone] 02/08/2025 Andrei Dale Jr Colon cancer screening Z12.11 ; correction (current) use of anticoagulants Z79.01 and History of adenomatous polyp of colon Z86.0101 [facility] [address] [facility] [address] [place] [phone] 03/30/2025 Andrei Dale Jr Assessments Encounter Date [...] Insured Coverage Start Date Coverage End Date [employer] [address] JED AWAN [phone] [id number] SIRISHA VERDIN Self - patient is the insured Medical (General) History Medical History History ICD Code peripheral arterial disease rheumatoid arthritis hypertension elevated cholesterol depression pneumonia Paroxysmal atrial fibrillation Sensorineural hearing loss MGUS Sarcoidosis Peripheral arterial disease Colonoscopy 08/08, tubular adenomas x 2, 5-year follow-up Surgical History Surgery Date(Month/Year) benign breast surgeries Peripheral arterial disease with stent p lacement thumb surgery Cataract surgery Cochlear implants bilaterally Hospitalization History Reason Date(Month/Year) pneumonia x 2
--- OUTSIDE RECORDS SUMMARY | 2025-08-10 07:57 | XMS_ITS | Encounter Summary ---
Author Organization [facility] Address [address] [facility] [address] [place] [phone] Phone Care Team Providers Care Financial Counselor Name Role Phone Miguelina Soliman MD Primary Care Provid er Reason for Referral * - New Request Specialty Diagnoses / Procedures Referred By Ezra chapa Referred To Contact Radiology Diagnoses PVD (peripheral vascular disease) Procedures US Lower Extremity Arteries ([employer]) [employer] [facility] Leonel Torrez DO [address] [address] Phone: tel: fax: [email or web address] Referral ID Status Reason Start Date Expiration Date V isits Requested Visits Authorized [id number] New Request 01/11/2025 1 1 Encounter Details Date Type Department Care Team (Late st Contact Info) Description 01/11/2025 Ancillary Orders [facility] [address] [place] [address] Leonel Torrez DO [address] [facility] [address] [place] [phone] [email or web address] PVD (peripheral vascular disease) (Primary Dx) Social [...] Care Team (Late st Contact Info) Description 08/29/2025 7:00 AM EST Appointment [facility] [address] [place] [phone] Leonel Torrez, [address] [address] 09/08/2025 10:00 AM EST Office Visit [facility] [address] [place] [address] [facility], [address] [place] [address] Leonel Torrez, DO [address] [place] [phone] documented as of this encounter Results * [...] I do not see prior ABIs performed. Leonel Torrez DO US VASCULAR Final Result documented in this encounter Visit Diagnoses Diagnosis PVD (peripheral vascular disease) Unspecified peripheral vascular disease Stenosis of iliac artery Atherosclerosis of [place] arteries of the extremities, unspecified PVD (peripheral vascular disease)- Primary Unspecified peripheral vascular disease documented in this encounter Care Teams Financial Counselor Relationship Specialty Start Date End Date Miguelina Soliman MD [address] [place] [address] PCP - General Internal Medicine 11/02/20 documented as of this encounter Additional Source Comments The information contained in this document represents components of the legal health record. It is not the complete legal health record.[facility]
--- OUTSIDE RECORDS SUMMARY | 2025-08-10 07:57 | XMS_ITS | Encounter Summary ---
Author Organization [facility] Address [address] [facility] [address] [place] [phone] Phone Care Team Providers Care Sand System Operator Name Role Phone Miguelina Soliman MD Primary Care Provid er Reason for Referral * - New Request Specialty Diagnoses / Procedures Referred By Ezra chapa Referred To Contact Radiology Diagnoses Stenosis of iliac artery Procedures US Aorta Duplex Complete Leonel Torrez DO [address] [address] Phone: tel: fax: [email or web address] Referral ID Status Reason Start Date Expiration Date V isits Requested Visits Authorized [id number] New Request 01/11/2025 1 1 Encounter Details Date Type Department Care Team (Late st Contact Info) Description 01/11/2025 Ancillary Orders [facility] [address] [place] [address] Leonel Torrez DO [address] [address] [email or web address] Stenosis of iliac artery (Primary Dx) Social [...] 08/29/2025 7:00 AM EST Appointment [facility] [address] [place] [address] Leonel Torrez, [address] [place] [phone] [email or web address] 09/08/2025 10:00 AM EST Office Visit [facility] [address] [place] [address] [address] [facility], [address] [place] [address] Leonel Torrez, DO [address] [place] [address] [place] [phone] [email or web address] documented as of this encounter Results * [...] disease Stenosis of iliac artery Atherosclerosis of [place] arteries of the extremities, unspecified Stenosis of iliac artery- Primary Atherosclerosis of [place] arteries of the extremities, unspecified documented in this encounter Care Teams Sand System Operator Relationship Specialty Start Date End Date Miguelina Soliman MD [address] [place] [address] PCP - General Internal Medicine 11/02/20 documented as of this encounter Additional Source Comments The information contained in this document represents components of the legal health record. It is not the complete legal health record.[facility]
--- OUTSIDE RECORDS SUMMARY | 2025-08-10 07:57 | XMS_ITS | Data Portability ---
Author Organization [place] - [facility], Allergy Address [address] [address] Care Team Providers Care Anesthesiology Fellow Name Role Phone MAXX DURAN Primary Care Provider Assessment Encounter Date Assessment Date Assessment LastModified by Organization Details LastModified Time 06/28/2024 06/28/2024 Right ear has healed well following placement of cochlear implant. She is extremely pleased with her progress with the implant so far. She will continue to follow-up with the [facility] for cochlear implant [...] be implanting the left ear with the Elevaate CI 632implant. After full discussion, the patient [...] Cochlear to set up her implant order. [email or web address] Not available 11/01/2024 13:53:38 12/02/2024 12/02/2024 74yo [...] 3 months. [email or web address] Not available 12/02/2024 16:36:37 04/03/2025 04/03/2025 Left ear has healed well following placement of cochlear implant. Right side appears stable and healthy. Patient will continue to follow-up with the [facility] for cochlear implant mapping. She may follow-up with me as needed [email or web address] Not available 04/03/2025 11:41:31 Plan of Treatment Reminders Order Date Submit Date Provider Last Modified By Organization Details Last Modified Time Details Appointments None recorded. Lab None recorded. Referral None recorded. Procedures None recorded. Surgeries cochlear device implantatio n (SURG) 2024 025 [email or web address] Not available 14:29:14 Imaging None recorded. Medication Orders None recorded. Patient TargetsNo targets recorded. Patient InstructionsNo instructions recorded. Reason for Referral None Reported. Results Created Date Observation Date Name Description Value Unit Range Abnormal Flag Note LastModifiedBy Organization Detail LastModifiedTime 02/29/20 24 02/26/2024 fluor oscop y evalu ation (PROC ) No observ ation record ed. [email or web address] [facility] [address], [place], [address], 03/07/2024 15:21:37 05/11/20 24 10/08/2023 imagi ng/di [...] (PROC ) No observ ation record ed. [email or web address] [facility] [address] [facility], [place], [address], 11/25/2024 16:40:30 Result Notes None recorded. Problems Name Problem SNOMED Code Status Onset Date Resolution Date Notes Provider Name and Address Organization Details Recorded Time Sensorine ural hearing loss of bilateral ears 608488025 Active 2023 Sensorineu ral hearing loss, bilateral; Note: Date Diagnosed: 10/08/2023 4:56 PM (H90.3) Not Available [facility] 4 02:33:39 Postopera tive nausea and vomiting 8623525 Active 2023 GISSELL RODRÍGUEZ MD [address] [facility] [place],[facility] [address], [place], [address] , [facility] - [facility] 4 04:28:19 Problem Notes None recorded. Procedures Surgical History Date Name Laterality Status Provider Name and Address Organization Details Recorded Time 11/26/19 25 COCHLEAR DEVICE IMPLANTATION (SURG) completed Rosalio Marcelino [place] - [facility] 11/25/2024 15:36:38 11/26/19 COCHLEAR DEVICE IMPLANTATION (SURG) completed Rosalio Marcelino [place] - [facility] 11/28/2024 13:17:48 laminectomy completed Maxx Archer [place] - [facility] 04/03/2025 10:50:37 Imaging Results None recorded. Procedure Notes None recorded. Medical Equipment Implant [employer]BL[employer] Issuing Agency Serial Number Lot Number Status Provider Name and Address Organization Details Recorded Time Cochlear implant FDA [id number] Y THOMAS IMLLER MD [address] [facility] [address], [place], [address] , [facility] - [facility] 4 09:14:31 Cochlear implant FDA [id number] Evans MILLER MD [address] [facility],[place] [address], [place], [address] , [facility] - [facility] 5 09:37:19 Allergies Allergen ID Allergen Name Allergen Category Reaction Reaction Severity Criticality Documentation Date Start Date Code Code System Note Provider Name and Address Organization Details Recorded Time 95621 Product containin g 3-hydroxy -3-methyl glutaryl- coenzyme A reductase inhibitor (product) medicatio n other Not available Not available 02/02/2024 99776 009 SNOMED React ion: Unkno wn; Not Available [facility] 4 00:59:28 53270 Eliquis medicatio n other Not available Not available 02/02/2024 79179 36 RxNorm React ion: Unkno wn; Not Available [facility] 00:59:28 Medications Name Sig Start Date Stop Date Status Note LastModified by Organization Details LastModified Time potassium chloride ER 10 mEq capsule,e xtended release TAKE 1 CAPSULE BY MOUTH EVERY DAY FOR 5 DAYS 06/28 completed Not Available Not Available Not Available carvedilo l 6.25 mg tablet TAKE 1 TABLET BY MOUTH TWICE A DAY WITH MEALS active Not Available Not Available No t Available prednison e 10 mg tablet by mouth 02/25 completed Medicati on ID: [id number] D uration Value: 14 Brand Name: predniso ne Send Method: E-Prescr ibed Sub s Allowed: subs OK Speci al Instruct ion: Take 6 tabs PO QD X 9 days, then 5 tabs PO QD day 10, 4 tabs day 11, 3 tabs day 12, 2 tabs day 13 and 1 tab day 14 Medic ationGen ericName : predniso ne Medic ation ID: [id number] D uration Value: 14 Brand Name: predniso [...] mg tablet 06/28 completed Medicati on ID: [id number] B rand Name: carvedil ol Send Method: E-Prescr ibed Sub s Allowed: subs OK Medic ationGen ericName : carvedil ol Not Available Not Available Not Available lisinopri l 20 mg tablet TAKE 1 TABLET BY MOUTH TWICE A DAY active Not Available Not Available No t Available prednison e 5 mg tablet DIRECTED 3 TABS DAILY FOR 5 DAYS THEN 2 TABS DAILY FOR 5 DAYS THEN 1 TAB DAILY FOR 5 DAYS & STOP 04/03 completed Not Available Not Available Not Available clopidogr el 75 mg tablet 06/28 completed Medicati on ID: [id number] B rand Name: clopidog rel Send Method: E-Prescr ibed Sub s Allowed: subs OK Medic ationGen ericName : clopidog rel Not Available Not Available Not Available amlodipin e 5 mg tablet 06/28 completed Medicati on ID: [id number] B rand Name: amlodipi ne Send Method: E-Prescr ibed Sub s Allowed: subs OK Medic ationGen ericName : amlodipi ne Not Available Not Available Not Available tramadol 50 mg tablet TAKE 1 TABLET BY MOUTH EVERY 6 HOURS NEEDED FOR PAIN FOR 30 DAYS 04/03 completed Not Available Not Available Not Available vancomyci n 125 mg capsule TAKE 1 CAPSULE BY MOUTH 4 TIMES A DAY FOR 10 DAYS 06/28 completed Not Available Not Available Not Available ondansetr on 8 mg disintegr ating tablet PLACE 1 TABLET EVERY 8 HOURS ON TONGUE & LET DISSOLVE NEEDED FOR 4 DAYS, FOR NAUSEA. 04/03 completed Not Available Not Available Not Available prednison e 2.5 mg tablet TAKE 1 TABLET BY MOUTH DAILY 06/28 completed Not Available Not Available Not Available cephalexi n 500 mg capsule 500 MG ORALLY EVERY 12 HOURS FOR 7 DAYS 03/31 completed Not Available Not Available Not Available lisinopri l 10 mg tablet TAKE 3 TABLETS BY MOUTH EVERY DAY 04/03 completed Not Available Not Available Not Available lisinopri l 5 mg tablet TAKE 1 TABLET BY MOUTH TWICE A DAY 06/28 completed Not Available Not Available Not Available levalbute rol 1.25 mg/3 mL solution for nebulizat ion 1.25 MG (3 ML) INHALED 2 TIMES A DAY FOR 90 DAYS active Not Available Not Available No t Available albuterol sulfate HFA 90 mcg/actua tion aerosol inhaler 04/03 completed Medicati on ID: [id number] B rand Name: albutero l sulfate Send Method: E-Prescr ibed Sub s Allowed: subs OK Medic ationGen ericName : albutero l sulfate Not Available Not Available Not Available lisinopri l 40 mg tablet 06/28 completed Medicati on ID: [id number] B rand Name: lisinopr il Send Method: [...] 4 TO 6 HOURS FOR 3 DAYS 04/03 completed Not Available Not Available Not Available bupropion HCl XL 150 mg 24 hr tablet, extended release TAKE 1 TABLET BY MOUTH EVERY DAY active Not Available Not Available No t Available nitrofura ntoin monohydra te/macroc rystals 100 mg capsule 06/28 completed Medicati on ID: [id number] B rand Name: nitrofur antoin monohyd/ m-cryst Send Method: E-Prescr ibed Sub s Allowed: subs OK Medic ationGen ericName : nitrofur antoin monohyd/ m-cryst Not Available Not Available Not Available Advair HFA 115 mcg-21 mcg/actua tion aerosol inhaler INHALE 2 PUFFS EVERY 12 HOURS active Not Available Not Available No t Available diclofena c 1 % topical gel APPLY 2G TOPICALL Y 4 TIMES A DAY NEEDED FOR FOR PAIN 06/28 completed Not Available Not Available Not Available Prolia 60 mg/mL subcutane ous syringe 04/03 completed Not Available Not Available Not Available Xarelto 20 mg tablet TAKE 1 TABLET BY MOUTH EVERY DAY active Not Available Not Available No t Available Praluent Pen 150 mg/mL subcutane ous pen injector INJECT 1 ML (150 MG TOTAL) UNDER THE SKIN EVERY 14 (FOURTEE N) DAYS. active Not Available Not Available No t Available Repatha Syringe 140 mg/mL subcutane ous syringe INJECT 1 ML (140 MG TOTAL) UNDER THE SKIN EVERY 14 DAYS. active Not Available Not Available No [...] Updated DateTime 11/01/2024 170.18 cm 26.3 kg/m2 88072.52 g Ada Mccormack [place] - [facility] 11/01/2024 13:34:58 Date Recorded Body height Body mass index (BMI) Body weight Provider Name and Address Organization Details Last Updated DateTime 12/02/2024 170.18 cm 29.8 kg/m2 13055.55 g Angeles Ish [place] - [facility] 12/02/2024 14:48:13 Date Recorded Body height Body mass index (BMI) Body weight Provider Name and Address Organization Details Last Updated DateTime 03/03/2024 170.18 cm 26.3 kg/m2 26192.52 g Maxx Archer [place] - [facility] 03/03/2024 11:45:51 Date Recorded Body height Body weight Provider Name and Address Organization Details Last Updated DateTime 06/28/2024 170.18 cm 71675.52 g Maxx Archer [place] - [facility] 06/28/2024 13:56:14 Social History None recorded. Functional Status None recorded. Mental Status None recorded. Family History Nothing Reported. Medical History Condition Response Heart Problems Y Hypertension Y Gynecological HistoryNo gynecological history recorded. Obstetrics History GPAL:G 0 P 0 0 0 0 Past Encounters Encounter ID Performer Location Encounter Start Date Encounter Closed Date Diagnosis/Indication Diagnosis SNOMED-CT Code Diagnosis ICD10 Code Diagnosis IMO Codes Diagnosis Note [id number] KERI THOMPSON PA-C [facility] [address] [address] 03/03/2024 11:38:42 03/03/2024 11:59:26 Sensorineural hearing loss of bilateral ears 869284148 H90.3 Sensorineu ral hearing loss in right ear 8048934286 9100 H90.A21 [id number] THOMAS MILLER MD [facility] [address] [address] 06/28/2024 13:33:51 06/28/2024 15:16:42 Sensorineural hearing loss of bilateral ears 414728928 H90.3 Cochlear p rosthesis in situ 718771762 Z96.21 [id number] THOMAS MILLER MD [facility] [address] [address] 11/01/2024 13:29:03 11/01/2024 14:00:42 Sensorineural hearing loss of bilateral ears 611277530 H90.3 Cochlear p rosthesis in situ 286827125 Z96.21 [id number] SANTO REILLY PA-C [facility] [address] [address] 12/02/2024 14:40:44 12/02/2024 15:09:17 Postoperative visit 915533466 Z48.89 Sensorineu ral hearing loss of bilateral ears 169617091 H90.3 [id number] THOMAS MILLER MD [facility] [address] [address] 04/03/2025 10:45:43 04/03/2025 11:43:21 Sensorineural hearing loss of bilateral ears 022247788 H90.3 Cochlear p rosthesis in situ 660606981 Z96.21 [id number] Health Concerns Section Related Observation LastModified by Organization Detai ls LastModified Time None Recorded Concern Status LastModified by Organization Details LastModified Time None Recorded Advance Directives Directive None Recorded Payers Insurance Date Sequence Insurance Name Policy Number Policy Durbin Covered Member ID Durbin Member ID Guarantor Name 04/03/2025 1 [facility] (MEDICARE SUPPLEMENT) Tasha Torres Emilia [id number] Tasha Torres Emilia 04/03/2025 1 [facility] (MEDICARE REPLACEMENT HMO) Tasha Torres Emilia [id number] Tasha Nieto Notes Date Note Type Note Provider Name and Address Organization Details Recorded Time 03/03/2024 text/html ROS as noted in the HPI 73 year old female presents with daughter for postoperative evaluation following implantation of right CI 02/26/[address] Miller. Reports she has been exceptionally dizzy and nauseated, though this is slowly improving. The area is quite tender. She had blood coming from the right ear yesterday after using a Q-tip. Scheduled for device mapping next week. SARAH FARMER MD [address] [place] [address], [place], [address], [facility] - [facility] 03/03/2024 16:57:19 06/28/2024 text/html Status post placement of right cochlear implant on 02/26/2024. She had some dizziness postoperatively and used some Zofran. Otherwise uneventful postoperative course. She has been following up at the [facility] for implant mapping. Able to use the phone with relative ease. Going to physical therapy to help with her residual balance disturbance. THOMAS MILLER MD [address],[place] [address], [place], [address], [facility] 06/28/2024 14:58:25 11/01/2024 text/html Status post placement of right cochlear implant on 02/26/2024. She had some dizziness postoperatively and used some Zofran. Otherwise uneventful postoperative course. She has been following up at the [facility] for implant mapping. [...] by her daughter. THOMAS MILLER MD [address] [facility],[facility] [address], [place], [address], [facility] 11/01/2024 14:00:19 12/02/2024 text/html ROS as noted in the HPI 74yo female presents following cochlear implant on 11/[address] Miller. Patient is doing well post-operatively. Dull ear ache is managed with OTC analgesics. Denies dizziness, taste disturbance, numbness, facial asymmetry, hearing loss, or otorrhea. FEMI BELL MD [address], [place], [address], [facility] 12/04/2024 08:11:18 04/03/2025 text/html Patient with bilateral sensorineural hearing loss, status post placement of bilateral cochlear implants. Right implant placed on 02/26/2024. Left implant placed 11/25/2024. Uneventful postoperative course. Patient working with the [facility] for cochlear implant mapping. She's very happy with her binaural hearing THOMAS MILLER MD [address] [address], [place], [address], [place] - [facility] 04/03/2025 11:43:31 OBGyn Episode No OBEpisode recorded.
--- OUTSIDE RECORDS SUMMARY | 2025-08-10 07:57 | XMS_ITS | Clinical Summary ---
Author Organization [facility] Facility Address [address] [address] Care Team Providers Care Facility Engineer Name Role Phone Miguelina Soliman MD Primary Care Provider [phone] Allergies Active Allergy Reactions Criticality Noted Date [...] to complete this topic Insurance [facility] Medicare [employer] Medicare Care Teams Facility Engineer Relationship Specialty Start Date End Date Miguelina Soliman MD [address] [place] PCP - General Internal Medicine 11/19/23
--- OUTSIDE RECORDS SUMMARY | 2025-08-10 07:57 | XMS_ITS | Encounter Summary ---
Author Organization [facility] Address [address] [facility] [address] [place] [address] Phone Care Team Providers Care Equipment Maintenance Supervisor Name Role Phone Miguelina Soliman MD Primary Care Provid er Encounter Details Date Type Department Care Team (Late st Contact Info) Description 11/20/2020 Procedure Pass [facility] Cardiovascular And Interventional Radiology [address] [place] [address] Social History Tobacco Use Types Packs/Day Years [...] 08/29/2025 7:00 AM EST Appointment [facility] [place] [address] Leonel Torrez DO [address] [facility] [address] [place] [id number] 09/08/2025 10:00 AM EST Office Visit [facility] [address] [facility] [address] [facility], [address] [place] [id number] Leonel Torrez, DO [address] [facility] [address] [place] [address] [email or web address] documented as of this encounter Visit Diagnoses Not on filedocumented in this encounter Care Teams Equipment Maintenance Supervisor Relationship Specialty Start Date End Date Miguelina Soliman MD [address] [place] [address] PCP - General Internal Medicine 11/02/20 documented as of this encounter Additional Source Comments The information contained in this document represents components of the legal health record. It is not the complete legal health record.[facility]
[2025-08-10 07:58] VITALS: BP 132/72; PULSE 83; O2SAT 98; BMI 30.1
--- NOTE | 2025-08-10 07:58 | A.OFFPC_ITS ---
Vital Signs 08/10/25 07:58 Height 5 ft 7 in Weight 192 lb BMI 30.1 BP 132/72 Blood Pressure Location Lt brachial Position Sitting Pulse 83 Pulse Source Pulse Oximeter Pulse Oximetry (%) 98 Oxygen Delivery Method Room Air Intake Visit Reasons: 6mth f/u Supervisor Pipeline Required: No Accompanied by: Self / Same As Patient Allergies Bkcxayj-[id number]-[id number] Reductase Inhibitor ([id number] REDUCTASE INHIBITOR) Allergy (Severe, Verified 08/10/25 08:20) ANAPHYLACTIC apixaban (From Eliquis) Allergy (Intermediate, Verified 08/10/25 08:20) Vomiting Medication List - Last Reconciled 08/10/25 by Miguelina Flor MD Actemra ACTPen (tocilizumab) 162 mg (0.9 mL) subcut QWEEK NS albuterol sulfate 90 mcg/actuation 2 inhalations inhalation Q6H PRN 30 days amlodipine 5 mg PO DAILY 90 days bupropion HCl XL (Wellbutrin XL) 150 mg PO DAILY 90 days carvedilol 6.25 mg PO BID cholecalciferol (vitamin D3) 50 mcg PO DAILY denosumab (Prolia) 60 mg subcut [id number] evolocumab (Repatha SureClick) 140 mg subcut Q2W fluticasone propion-salmeterol 115-21 mcg/actuation (Advair HFA) 2 puffs inha lation Q12H 30 days levalbuterol HCl 1.25 mg (3 mL) inhalation BID 90 days lisinopril 20 mg PO BID 90 days rivaroxaban (Xarelto) 20 mg PO QPM tramadol 50 mg PO Q6H PRN 30 days Tobacco use date assessed: 10/03/24 Fall risk assessment: No Falls in past year Last assessed Fall Risk: 08/10/25 Dental Screening Dental Screen Date: 10/03/24 HPI HPI Comments History of Present Illness Details The patient is a 75 year old individual presenting for a health maintenance visit and review of chronic conditions. The patient has allergies to statins and apixaban (Eliquis). The patient reports being up-to-date with flu and COVID-19 vaccinations, colonoscopy, mammogram, and bone density screenings. A lipid profile was performed last month, and carotid scans were also recently completed. The patient's chronic conditions include rheumatoid arthritis, managed with weekly Actemra, and COPD, for which the patient uses an Advair inhaler and follows with pulmonology. Hypertension is managed with amlodipine 5 mg, carvedilol, and lisinopril 20 mg twice daily. Depression with anxiety is treated with bupropion. Osteoporosis is managed with Prolia every six months and vitamin D. A bone density scan in October showed osteopenia. For hyperlipidemia, the patient takes Repatha every two weeks. Blood work from June 15 showed elevated cholesterol, which the patient's anchorman attributed to Actemra, noting it may also offer cardioprotection. The same labs showed good kidney function, good glucose, and a chronically mildly elevated liver enzyme. Additional medications include Xarelto and tramadol as needed. The patient reports being very active and doing workouts. Accompanied by daughter today. [facility] Medical History (Updated 08/10/25 @ 10:26 by Miguelina Flor MD) Mild recurrent major depression Sarcoidosis MGUS (monoclonal gammopathy of unknown significance) Sensorineural hearing loss Elevated cholesterol Rheumatoid arthritis PAD (peripheral artery disease) Bronchiolitis BRE (acute kidney injury) Rheumatoid arthritis involving multiple joints COPD (chronic obstructive pulmonary disease) Atrial fibrillation with rapid ventricular response Blood poisoning due to Streptococcus pneumoniae bacteria Septic shock due to streptococcal infection Acute hypoxic respiratory failure Type 2 CA (myocardial infarction) Metabolic acidosis Hyperphosphatemia Septic shock Uremic encephalopathy Ischemic hepatitis Hypoxia Pancreatitis, acute Hypomagnesemia Sarcoidosis Streptococcal pneumonia Xanthelasma Pulmonary nodules Mild recurrent major depression Emphysema lung Hip bursitis Depression Essential hypertension Surgical History History of vascular surgery Hx of thumb surgery Hx of breast surgery H/O colonoscopy Cochlear implant in place Xanthelasma of lower eyelid History of coronary angiogram Hx of left knee surgery H/O cataract removal with insertion of prosthetic lens H/O laminectomy Carpal tunnel syndrome on both sides Family History Mother Leukemia Father Diabetes Heart disease Brother Heart disease Other No family history of cancer Social History Household Members: Spouse Housing: House Are you a primary field care manager to a significant other at home: Yes (Son) Do you presently have visiting nurse or other home services: No Unable to assess alcohol history related to: Unknown Alcohol intake: current Alcohol intake frequency: holidays/special occasions only Alcohol type: wine Comment: bilateral wrist restraints--intubated Patient Tobacco Use Status: Former Tobacco user Tobacco use type: Cigarette e-Cigarette/Vaping Use: Never Used Second Hand Smoke Exposure: No Substance Use Type: Marijuana service: No Current occupational status: retired Cognitive needs: Yes (wheelchair, walker,) Hearing needs: No Vision needs: Yes (reading glasses) Questionnaire Thrive Questionnaire Date Thrive assessed: 09/26/24 I am a: Patient What is your living situation today?: I have a steady place to live Within the past 12 months, did the food you bought not last and you didn't have the money to get more?: Never true Within the past 12 months, did you worry whether your food would run out before you got money to buy more?: Never true Do you have trouble paying for medicines?: No Do you have trouble getting transportation to medical appointments?: No Do you have trouble paying your heating and electricity bill?: No Do you have trouble taking care of your child, family member or friend?: No Do you have trouble with day-to-day activities such as bathing, preparing meals, shopping, managing finances, etc.?: No Are you currently unemployed and looking for a job?: No Are you interested in more education?: No Please select the resources that you would like help with: None Currently or been in a relationship where the following occur: No concerns reported THRIVE Score: 0 LUPIS-7 AMB Questionnaire LUPIS-7 Date LUPIS - 7 assessed: 10/03/24 Source: Developed by Drs. Alex Segovia, Fabiola Colón, Florentin Stevens and colleagues, with an educational josselyn from [employer]. Review of Systems Const All systems reviewed & are unremarkable except as noted in HPI and below Card Denies chest pain at rest, Denies chest pain with activity, Denies edema, Denies irregular heart rhythm, Denies claudication, Denies dyspnea, Denies dyspnea on exertion, Denies orthopnea, Denies paroxysmal nocturnal dyspnea and Denies slow heart rate Resp Denies cough, Denies dyspnea and Denies dyspnea on exertion Physical exam (Primary Care) Vital Signs: Last Vital Signs Pulse 83 08/10/25 07:58 BP 132/72 08/10/25 07:58 Pulse Ox 98 08/10/25 07:58 Oxygen Delivery Method Room Air 08/10/25 07:58 BMI result Body Mass Index 30.1 BMI Assessment/Plan discussion: High BMI High, discussed plan: lifestyle, weight reduction, dietary and physical activity Tobacco/Smoking Status: Tobacco use Status Tobacco use date assessed 10/03/24 08/10/25 08:04 Patient Tobacco Use Status Former Tobacco user 08/10/25 08:04 Tobacco use type Cigarette 08/10/25 08:04 e-Cigarette/Vaping Use Never Used 08/10/25 08:04 Thrive Assessment: Date of Thrive Assessment Date Thrive assessed 09/26/24 08/10/25 08:04 Currently or been in a relationship where the following occur: No concerns reported Resp Effort & Inspection: normal respiratory effort Auscultation: clear to auscultation bilaterally Cardio Jugular venous distension: no JVD Rate: regular rate Rhythm: regular rhythm Heart sounds: S1 normal heart sound present and S2 normal heart sound present Extrem General: Yes full ROM Coding Level of Care Code Est Pt Level 4 (40150) Complex EM visit Add On G2211 Diagnoses Mild recurrent major depression F33.0 Essential hypertension I10 Paroxysmal atrial fibrillation I48.0 Pure hypercholesterolemia E78.00 Age-related osteoporosis without current pathological fracture M81.0 Osteoporosis type: age-related Presence of current pathological fracture: without current pathological fracture Rheumatoid arthritis involving multiple joints M06.9 COPD (chronic obstructive pulmonary disease) J44.9 Time Spent (min) 22 Assessment & Plan Assessment & Plan (1) Mild recurrent major depression: Code(s): F33.0 - Major depressive disorder, recurrent, mild Category: Medical (2) Essential hypertension: Code(s): I10 - Essential (primary) hypertension Category: Medical (3) Paroxysmal atrial fibrillation: Code(s): I48.0 - Paroxysmal atrial fibrillation Category: Medical (4) Pure hypercholesterolemia: Code(s): E78.00 - Pure hypercholesterolemia, unspecified Category: Medical (5) Osteoporosis: Comment: DEXA 10/2024: AP Spine 2.5, Left femur neck -1.1, Left femur total -0.9 DEXA 10/2022: AP Spine 1.5, Left femur neck -1.1, Left femur total -0.9 DEXA 10/2020: AP Spine 0.8, Left femur neck -1.2, Left femur total -0.9 Alendronate-could not tolerate due to GI upset Prolia- March 2019- present Code(s): M81.0 - Age-related osteoporosis without current pathological fracture Category: Medical Qualifiers: Osteoporosis type: age-related Presence of current pathological fracture: without current pathological fracture Qualified Code(s): M81.0 - Age-related osteoporosis without current pathological fracture (6) Rheumatoid arthritis involving multiple joints: Comment: Humira -dates unknown Enbrel 03/2020-06/2021-discontinued due to active synovitis. Methotrexate- 03/2020-01/2022- increased LFTs- resolved once stopped. Kevzara- 07/11-03/2022- low absolute neutrophils Orencia 03/2022-present effective. DC 08/2023 due to septic shock 10/23 PNA Actemra 11/2023 effective. PDN tapered off 05/2024 Code(s): M06.9 - Rheumatoid arthritis, unspecified Category: Medical (7) COPD (chronic obstructive pulmonary disease): Code(s): J44.9 - Chronic obstructive pulmonary disease, unspecified Category: Medical Plan Plan 1. Chronic Obstructive Pulmonary Disease Continue current management. The patient has a follow-up appointment with pulmonology scheduled for August 28. 2. Hyperlipidemia Continue Repatha every two weeks. The elevated cholesterol is likely a side effect of Actemra, which may also confer some anti-inflammatory cardioprotective benefits. Cholesterol levels will be rechecked in September. 3. Hypertension Continue lisinopril and amlodipine. Blood pressure goal is equal or less than 130/80. 4. Rheumatoid arthritis Continue Actemra. Follow-up with rheumatology. 5. Osteoporosis Continue Prolia. Follow-up with rheumatology. Orders: Orders Vitamin D 25-OH Total 1 Month E55.9 - Vitamin D deficiency, unspecified Lipid Panel 1 Month E78.5 - Hyperlipidemia, unspecified Comprehensive [place]. Panel Fast 1 Month I10 - Essential (primary) hypertension
== END 2025-08-10 08:33 | disposition home or self-care (01) ==
LOC: HO.HMCH 07:50
PROVIDERS: PCP Internal Medicine; Visit Provider Internal Medicine
DX: F33.0 Major depressive disorder, recurrent, mild (principal); I10 Essential (primary) hypertension; I48.0 Paroxysmal atrial fibrillation; E78.00 Pure hypercholesterolemia, unspecified; M81.0 Age-related osteoporosis without current pathological fracture; M06.9 Rheumatoid arthritis, unspecified; J44.9 Chronic obstructive pulmonary disease, unspecified

== ENCOUNTER → 2025-08-10 07:49 | Outpatient (BNVA) | payer MEDICARE, SELFPAY | PROVIDERS: PCP Internal Medicine; Visit Provider Internal Medicine | DX: F33.0 Major depressive disorder, recurrent, mild (principal); I10 Essential (primary) hypertension; I48.0 Paroxysmal atrial fibrillation; E78.00 Pure hypercholesterolemia, unspecified; M81.0 Age-related osteoporosis without current pathological fracture; M06.9 Rheumatoid arthritis, unspecified; J44.9 Chronic obstructive pulmonary disease, unspecified | CPT/HCPCS: 99212 ==

== ENCOUNTER 2025-08-28 09:16 | Outpatient (AMB) | payer MEDICARE, SELFPAY ==
[2025-08-28 09:21] VITALS: BP 136/70; PULSE 80; O2SAT 97
--- NOTE | 2025-08-28 09:21 | MHC.OFFVIS ---
Vital Signs 08/28/25 09:21 Height 5 ft 7 in Weight 191 lb 12.835 oz BMI 30.0 BP 136/70 Blood Pressure Location Lt brachial Position Sitting Pulse 80 Pulse Source Pulse Oximeter Pulse Oximetry (%) 97 Oxygen Delivery Method Room Air Intake Visit Reasons: COPD Fur Feeder Required: No Accompanied by: Daughter Allergies Oxngffu-NYX-PjR Reductase Inhibitor ([id number] REDUCTASE INHIBITOR) Allergy (Severe, Verified 08/28/25 09:23) ANAPHYLACTIC apixaban (From Eliquis) Allergy (Intermediate, Verified 08/28/25 09:23) Vomiting HPI Comments Details: Patient is a 75 y/o woman with a history of seronegative rheumatoid arthritis followed closely by Rheumatology in addition to history of sarcoidosis and pulmonary nodules. Overall she is doing very well on methotrexate 4 tablets a week and she was initially on 5 mg of prednisone. Since she last saw the hearing specialist the recommendation was to drop down the prednisone to 4 mg. Even though her sedimentation rate was still elevated at 40. She did have a recent CT scan demonstrating stable pulmonary nodules in addition to some mild degree of emphysema. The patient is aware of this. At this point having stable pulmonary nodules the patient does need to have yearly follow-up at this time. She did have her eyes checked in appears to be stable and her lesion her face that is likely from her sarcoidosis also seems to be decreasing in size. Overall she is doing very well she is staying active and the conditions are not impacting her quality of life. ? 06/17/2022 the patient is here for a pulmonary follow-up visit. She is struggling with her arthritis. She is working on different agents to try to control her seronegative rheumatoid arthritis. The patient also has underlying sarcoidosis. Her breathing has been stable. Although she is going to the allergy season and she needs to have a rescue inhaler available. The patient continues on a small dose of prednisone. She was supposed to undergo a CT scan of the chest to follow-up pulmonary nodules. But, the patient was too busy and forgets to go to her appointment. The patient stands with following nodules that can potentially grow. At this point will have her go blood work to assess her and phlegm a carlos levels and also sarcoid levels. If there is any concerning will go ahead and request a CT scan now. Otherwise patient would like to wait until next summer to further evaluate the pulmonary nodules. Will plan to follow-up with her after her CT scan in a year's time, unless her blood work 05/26/2023 the patient is here for a pulmonary follow-up visit. The patient overall has been doing better. She has been on a better regimen for her arthritis. She is responding well to the Orencia. She continues also to be on 10 mg of prednisone. She is working slowly to decrease that. As far as the sarcoidosis the patient does have regular follow-up sore pulmonary nodules. Her last CT scan was just done couple weeks ago. Appears that she does have some slight new nodules but very minimal amount. The other nodules are stable. Therefore, based on the fact that she does have some new nodules will plan to follow-up with a CT scan in a year's time. She does have a rescue inhaler that she has not required. Overall the patient is doing well. I am hopeful that she can cut down the prednisone. 11/13/2023 the patient is here for hospital follow-up visit. The patient had a very significant hospitalization back in late July when she was admitted with acute respiratory failure and septic shock. The patient had a CT scan of the chest which I personally. Initially demonstrating the beginnings of a right lower lobe pneumonia then subsequent CT scan that she had during hospital stay demonstrated a more lobar consolidation. Her blood cultures were positive for streptococcal pneumonia. The patient was treated appropriately. She did have a prolonged ICU stay in requiring a prolonged period of intubation and vasopressor therapy. The patient now is much better. Although, she is significantly weak and she also lost her hearing. We able to communicate through a dictation device. She is working with physical therapy at home. 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 The patient will benefit from pulmonary rehabilitation when she completes [facility]. She will need to have pulmonary function studies and then was start pulmonary rehabilitation. In the meantime she continues use her respiratory therapy with good effect. Will go ahead and request blood work in view of the fact that she did get vaccinated for pneumococcal pneumonia just a couple months before she ended up with pneumococcal pneumonia. Therefore will give another vaccination and also check the blood work. 05/26/2024 the patient is here for a pulmonary follow-up visit. Overall the patient has been recovering after her very serious hospitalization. She also has been following closely Rheumatology. Seems like her biologic therapy for her connective tissue disease is helping her both RA and also treating her sarcoid. She does have a rescue inhaler but typically does not use it often. Typically less than 2 times a week. In addition to that the patient did have a CT scan of the chest which I personally reviewed with her. the patient appears to have a right-sided pulmonary nodule measuring more than a cm in the right hemithorax. In addition to that worsening tree-in-bud and bronchiolitis primarily on the left upper lobe in also lingula. This suggested smoldering infection. The patient is immunocompromised because of her immunosuppression due to her connective tissue disease Treatment. Therefore will have her undergo sputum sampling to see if this smoldering infection such as non tuberculosis mycobacterial infection. She has already had a negative TB test. If the CT scan is no better in 3 months or if his worsen then we can talk about bronchoscopy specially if we have not been able to adequately collect good sputum samples. 09/09/2024 the patient is here for a pulmonary follow-up visit. Overall she is doing very well. She is exercising regularly. Her breathing is that limiting her activity. Denies any significant chest congestion. She did get the Acapella valve but we did talk about using it more regularly. In addition to that she did have a CT scan of the chest that we personally reviewed. It appears that the tree-in-bud and bronchiolitis still about the same as it was before. Has not gotten worse which is reassuring. Although still there. Will try to increase CPT with nebulizer therapy as well to try to help her clear any mucous plugs from the bronchioles with the help of the nebulizer along with the Acapella valve. The patient is to do that once or twice a day. Will plan to follow-up in 6 months. Will plan to repeat the CT scan in 6 months if the area still there. If she does become symptomatic can always consider bronchoscopy for deep cultures. Although in her case right now because of her history of C diff colitis would be very cautious and also conscientious not to give him any medications that could worsen her risk of developing severe C diff again. 03/02/2025 the patient is here for a pulmonary follow-up visit. Overall she is doing well. He continues her CPT. She is tolerating it well. Able to clear gets out of her lungs. Exercising regularly. The patient is scheduled for CAT scan but she has not had as of yet. The goal will be to follow-up with the bronchiolitis in tree-in-bud and see if this is better. If the bronchiolitis is worse then will consider bronchoscopy. Looking for the suspicion of smoldering infection or any evidence of any sarcoid. In the meantime she does have increasing allergy symptoms. She has been complaining of some some chest tightness and some runny nose. On exam she does have some wheeze so therefore will go ahead and start her on Advair HFA. She continue with her nebulized therapy and CPT as prescribed. She will get the CAT scan next month and I will let her know how that comes out. We will follow-up in 4-6 months. If she has any issues or any concerns she can always call for an earlier assessment. [facility] Medical History (Updated 08/21/25 @ 07:45 by Miguelina Flor MD) Mild recurrent major depression Sarcoidosis MGUS (monoclonal gammopathy of unknown significance) Sensorineural hearing loss Elevated cholesterol Rheumatoid arthritis PAD (peripheral artery disease) Bronchiolitis BRE (acute kidney injury) Rheumatoid arthritis involving multiple joints COPD (chronic obstructive pulmonary disease) Atrial fibrillation with rapid ventricular response Blood poisoning due to Streptococcus pneumoniae bacteria Septic shock due to streptococcal infection Acute hypoxic respiratory failure Type 2 NV (myocardial infarction) Metabolic acidosis Hyperphosphatemia Septic shock Uremic encephalopathy Ischemic hepatitis Hypoxia Pancreatitis, acute Hypomagnesemia Sarcoidosis Streptococcal pneumonia Xanthelasma Pulmonary nodules Mild recurrent major depression Emphysema lung Hip bursitis Depression Essential hypertension Surgical History History of vascular surgery Hx of thumb surgery Hx of breast surgery H/O colonoscopy Cochlear implant in place Xanthelasma of lower eyelid History of coronary angiogram Hx of left knee surgery H/O cataract removal with insertion of prosthetic lens H/O laminectomy Carpal tunnel syndrome on both sides Family History Mother Leukemia Father Diabetes Heart disease Brother Heart disease Other No family history of cancer Social History Household Members: Spouse Housing: House Are you a primary manager intensive care to a significant other at home: Yes (Son) Do you presently have visiting nurse or other home services: No Alcohol intake: current Alcohol intake frequency: holidays/special occasions only Alcohol type: wine Comment: bilateral wrist restraints--intubated Patient Tobacco Use Status: Former Tobacco user Tobacco use type: Cigarette e-Cigarette/Vaping Use: Never Used Second Hand Smoke Exposure: No Substance Use Type: Marijuana service: No Current occupational status: retired Cognitive needs: Yes (wheelchair, walker,) Hearing needs: No Vision needs: Yes (reading glasses) Review of Systems Const Denies night sweats ENT Denies Normal hearing present, Denies change in voice, Reports hearing loss, Denies lip swelling, Denies mouth pain, Reports nasal congestion, Reports nasal discharge and Denies tongue swelling Card Denies chest pain and Reports dyspnea on exertion Resp Reports chest congestion, Reports cough, Reports dyspnea on exertion and Reports wheezing GI Denies abdominal pain Musc Reports as per HPI, Reports abnormal gait, Reports myalgias, Reports arthralgias, Reports joint swelling and Reports muscle weakness Neuro Denies Normal hearing present, Denies Neuro-related abnormal movements and Reports abnormal gait Psych Denies no additional complaints Ricardo/Lymph Denies easy bleeding and Denies lymphadenopathy Aller/Immun Denies lip swelling, Denies tongue swelling and Reports wheezing Physical Exam Vital Signs: Last Vital Signs Pulse 80 08/28/25 09:21 BP 136/70 08/28/25 09:21 Pulse Ox 97 08/28/25 09:21 Oxygen Delivery Method Room Air 08/28/25 09:21 BMI result Body Mass Index 30.0 Const General: cooperative, comfortable, no acute distress, alert and awake Nutritional Appearance: average body habitus and other (Frail) Orientation/consciousness: patient oriented x3 Limitations: wheelchair Neck Neck: Yes trachea midline, Yes supple and Yes no JVD Chest Chest palpation & inspection: normal inspection of the chest Resp Effort & Inspection: normal respiratory effort Auscultation: wheezes and diminished lung sounds Cardio Jugular venous distension: no JVD Rate: regular rate Rhythm: regular rhythm Heart sounds: S1 normal heart sound present, S2 normal heart sound present and no murmurs GI Auscultation: normal bowel sounds Skin General skin exam: no rashes or lesions noted Neuro General: patient oriented x3 and no focal motor deficits Cranial nerves: No Normal hearing present Extrem General: Yes no clubbing, cyanosis or edema Assessment & Plan Assessment & Plan (1) Sarcoidosis: Code(s): D86.9 - Sarcoidosis, unspecified Category: Medical (2) Seronegative rheumatoid arthritis: Comment: Hydroxychloroquine for 18 months failed Humira -dates unknown failed Enbrel 03/2020-06/2021-discontinued due to active synovitis. Methotrexate- 03/2020-01/2022- increased LFTs- resolved once stopped. Kevzara- 07/11-03/2022- low absolute neutrophils Orencia-03/2022-present effective. DC 08/2023 due to septic shock Actemra 11/2023 effective. PDN tapered off 05/2024 Code(s): M06.00 - Rheumatoid arthritis without rheumatoid factor, unspecified site Category: Medical (3) work order clerk systemic steroid user: Code(s): Z79.52 - half-way (current) use of systemic steroids Category: Medical (4) Emphysema lung: Code(s): J43.9 - Emphysema, unspecified Category: Medical (5) Pulmonary nodules: Code(s): R91.8 - Other nonspecific abnormal finding of lung field Category: Medical (6) Bronchiolitis: Code(s): J21.9 - Acute bronchiolitis, unspecified Category: Medical (7) Pulmonary nodule: Code(s): R91.1 - Solitary pulmonary nodule Category: Medical Plan start Doxycycline Start Medrol pk Mucinex as needed Short-acting beta agonist as needed sputum for AFB Repeat CT cest, consider bronchosocpy if persistent bronchiolitis conitnue Advair HFA CPT with acapella valve and nebs repeat CT chest 02/2026 follow-up in 6-8 months Orders: Orders Acid-fast Culture + Smear Today R91.1 - Solitary pulmonary nodule, R91.8 - Other nonspecific abnormal finding of lung field CT chest wo IV con 03/06/26 R91.8 - Other nonspecific abnormal finding of lung field Sputum Cult + Gram stain Today R91.1 - Solitary pulmonary nodule, R91.8 - Other nonspecific abnormal finding of lung field Medications: New methylprednisolone (Medrol (Cruz)) PO PER PKG DIR 21 ea 0RF 6 days R91.8 - Other nonspecific abnormal finding of lung field doxycycline hyclate 100 mg PO BID 20 caps 0RF 10 days R91.8 - Other nonspecific abnormal finding of lung field Coding Level of Care Code Complex visit Add On G2211 Diagnoses Sarcoidosis D86.9 Seronegative rheumatoid arthritis M06.00 half-way systemic steroid user Z79.52 Emphysema lung J43.9 Pulmonary nodules R91.8 Bronchiolitis J21.9 Pulmonary nodule R91.1 Time Spent (min) 18
== END 2025-08-28 09:53 | disposition home or self-care (01) ==
LOC: HO.HPS 09:16
PROVIDERS: PCP Internal Medicine; Visit Provider Hospitalist
DX: D86.9 Sarcoidosis, unspecified (principal); M06.00 Rheumatoid arthritis without rheumatoid factor, unspecified site; Z79.52 Long term (current) use of systemic steroids; J43.9 Emphysema, unspecified; R91.8 Other nonspecific abnormal finding of lung field; J21.9 Acute bronchiolitis, unspecified; R91.1 Solitary pulmonary nodule
CPT/HCPCS: 99214; G2211

== ENCOUNTER → 2025-08-28 09:16 | Outpatient (BNVA) | payer MEDICARE, SELFPAY | PROVIDERS: PCP Internal Medicine; Visit Provider Hospitalist | DX: D86.9 Sarcoidosis, unspecified (principal); M06.00 Rheumatoid arthritis without rheumatoid factor, unspecified site; J43.9 Emphysema, unspecified; R91.8 Other nonspecific abnormal finding of lung field; J21.9 Acute bronchiolitis, unspecified; R91.1 Solitary pulmonary nodule; Z87.891 Personal history of nicotine dependence; Z79.52 Long term (current) use of systemic steroids; Z79.51 Long term (current) use of inhaled steroids | CPT/HCPCS: 99212 ==